=== PATIENT | female | born 1995 | race African-American/Black ===

== ENCOUNTER 2024-03-02 11:07 | Emergency (ER) | payer OTHER, SELFPAY ==
[2024-03-02] VITALS (12 sets, daily range): BP systolic 83–101; BP diastolic 54–75; PULSE 42–105; RESP 12–100; TEMP 36.7–36.8; O2SAT 96–100
--- NOTE | 2024-03-02 11:17 | ECG_ITS ---
Test Date: 2024-03-02 11:46:58 Measurements Intervals [place] Rate: 47 P: 30 VA: 205 QRS: 64 QRSD: 84 T: 36 QT: 419 QTc: 372 Interpretive Statements SINUS BRADYCARDIA WITH SINUS ARRHYTHMIA BORDERLINE AV CONDUCTION DELAY CONSIDER ANTERIOR INFARCT, AGE INDETERMINATE ABNORMAL ECG No previous ECG available for comparison Electronically Signed On 03-02-2024 11:49:07 NURSE ORTHOPEDIC by Geoff Padilla D.O.
--- NOTE | 2024-03-02 11:44 | PC.NURSE ---
Spoke with [facility] control , Edwin - pharmacist - states subtoxic amount of Tylenol taken. Need to draw a 4 hour acetaminophen level around 1430.
[2024-03-02 11:48] LABS: Basophils Percent Auto 0.8 % (0.2-1.2); Eosinophils Percent Auto 0.4 % (0-4.4); Hematocrit 39.3 % (37.0-47.0); Hemoglobin 12.2 g/dL (12.0-15.0); Immature Granulocyte Absolute 0.01 K/mm3 (0.00-0.031); Immature Granulocyte Percent A 0.2 % (0-0.5); Lymphocytes Absolute Auto 1.97 K/mm3 (0.9-3.2); Lymphocytes Percent Auto 38.5 % (18.3-44.2); Mean Corpuscular Hemoglobin 25.8 pg (26-34); Mean Corpuscular Volume 83.1 fl (80-100); Mean Platelet Volume 9.9 fl (7.4-10.4); Monocytes Absolute Auto 0.7 K/mm3 (0.1-0.6); Monocytes Percent Auto 13.5 % (2.6-8.5); Neutrophils Absolute Auto 2.4 K/mm3 (1.3-6.7); Neutrophils Percent Auto 46.6 % (45.5-73.1); Platelet Count Result 392 k/mm3 (150-375); Red Blood Count 4.73 M/mm3 (4.2-5.4); Red Cell Distribution Width 13.8 % (11.5-14.5); White Blood Count 5.1 K/mm3 (4.5-10.0)
[2024-03-02 11:50] LABS: Add Urine Microscopic? NO; Appearance Urine Clear (Clear); Bilirubin Urine Negative (Negative); Blood Urine Negative (Negative); Color Urine Yellow (Yellow); Glucose Urine UA Negative (Negative); Ketones Urine Negative (Negative); Leukocyte Esterase Ur Negative LEU/UL (Negative); Nitrate Urine Negative (Negative); Protein Urine Negative (Negative); pH Urine 6.5 (5.0-9.0)
[2024-03-02 12:02] LABS: Pregnancy On Board Control Positive; Urine Pregnancy Test Negative
[2024-03-02 12:11] LABS: Acetaminophen 108 ug/mL (10-30); Alanine Aminotransferase 13 U/L (6-35); Albumin Level 4.1 g/dL (3.5-5.1); Alkaline Phosphatase 47 U/L (38-126); Anion Gap 6 mmol/L (4-12); Aspartate Amino Transferase 26 U/L (14-36); Bilirubin,Total 0.3 mg/dL (0.2-1.3); Blood Urea Nitrogen 10 mg/dL (7-17); Calcium 8.9 mg/dL (8.4-10.2); Carbon Dioxide 27 mmol/L (22-30); Chloride 107 mmol/L (98-107); Estimated CRCL calculation 108 ml/min; Estimated Glomerular Filt Rate > 60; Ethanol < 10 mg/dL (<10); Glucose 79 mg/dL (65-110); Potassium 4.3 mmol/L (3.4-5.0); Salicylate < 1.0 mg/dL (2-20); Sodium 140 mmol/L (137-145)
[2024-03-02 12:12] LABS: Barbiturate Screen Urine Negative (Negative); Benzodiazepines Screen Urine Negative (Negative)
--- NOTE | 2024-03-02 12:16 | PC.NURSE ---
Poison control called by Magdalene Nassar RN. Screen Printing Supervisor stated to RN to keep monitoring patient and to check acetaminophen levels again at 1430
[2024-03-02 12:21] LABS: Cannabinoid Screen Urine Positive (Negative); Cocaine Screen Urine Negative (Negative); Methadone Screen Urine Negative (Negative); Opiate Screen Urine Negative (Negative); Phencyclidine Screen Urine Negative (Negative)
[2024-03-02 12:24] LABS: Amphetamine Screen Urine Positive (Negative); SARS-CoV-2 RNA PCR Negative (Negative)
--- NOTE | 2024-03-02 12:26 | ED.GENADULT ---
HPI - General Adult General Chief complaint: Overdose Stated complaint: OD Time Seen by Provider: 03/02/24 11:52 History of Present Illness HPI narrative: 28-year-old female presenting to the emergency department for evaluation after an intentional ingestion of Tylenol. Patient reports due to increased stress and anxiety she felt overwhelmed and she took Tylenol. Patient did not expressly say that she did this to hurt herself but she did states she did not take it for pain control. Patient states that she wishes instead of taking these medications that she wished she had just watched a movie and let the intense emotion past. States she is no longer suicidal and no longer wants to hurt herself. Review of Systems Review of Systems: All systems reviewed & are unremarkable except as noted in HPI and below PMFSH Social History Social History Substance use type: marijuana Exam Narrative: APPEARANCE: Well appearing, no pain, no distress, well-nourished. HEAD: normocephalic, atraumatic. EYES: PERRLA/EOMI, conjunctivae clear. NOSE: Normal no drainage EARS:TMS clear with good light reflex. THROAT: Pharynx clear, no exudate. NECK: Supple. No adenopathy, no masses. RESPIRATORY: Airway patent, respirations nonlabored. Clear to auscultation bilaterally, no rales, rhonchi, wheezing. CARDIOVASCULAR: Regular rate and rhythm without murmurs rubs or gallops. ABDOMINAL: Soft, nontender, nondistended, normal bowel sounds MUSCULOSKELETAL: Moves all extremities. Strength/ROM intact, No edema, No calf tenderness. NEURO: Alert. Cranial nerves II through XII intact. Grossly intact SKIN: Warm, dry. Normal Color Course Vital Signs Vital signs: Vital Signs Temperature 98.0 F 03/02/24 11:05 Pulse Rate 82 03/02/24 11:05 Respiratory Rate 14 03/02/24 11:05 Blood Pressure 94/61 L 03/02/24 11:05 Pulse Oximetry 100 03/02/24 11:05 Oxygen Delivery Room Air 03/02/24 11:05 Temperature 98.3 F 03/02/24 18:43 Pulse Rate 67 03/02/24 18:43 Respiratory Rate 18 03/02/24 18:43 Blood Pressure 97/61 L 03/02/24 18:43 Pulse Oximetry 100 03/02/24 18:43 Oxygen Delivery Room Air 03/02/24 11:17 Medical Decision Making MDM Narrative Medical decision making narrative: 28-year-old female presenting to the emergency department for evaluation after an intentional ingestion Tylenol. Patient is afebrile with no leukocytosis and hemoglobin of 12.2. Patient has no significant abnormalities on her CMP UA was negative for infection. The patient's initial CT been level was elevated with the 4 hours decreased to 63. Patient was positive for cannabinoids and amphetamine, patient was negative for COVID, EKG sinus bradycardia. Patient is medically cleared to be evaluated by the crisis counselors. Patient is medically cleared for transport inpatient psychiatric hospitalization as needed. Patient was about but crisis counselor they were comfortable the patient is signing a safety agreement being discharged home. Patient was comfortable the plan for discharge. All questions concerns were addressed. Differential Diagnosis Differential Diagnosis: Tylenol overdose, intentional overdose, depression, anxiety, S Vital Signs Vital Signs: Vital Signs Temperature 98.0 F 03/02/24 11:05 Pulse Rate 82 03/02/24 11:05 Respiratory Rate 14 03/02/24 11:05 Blood Pressure 94/61 L 03/02/24 11:05 Pulse Oximetry 100 03/02/24 11:05 Oxygen Delivery Room Air 03/02/24 11:05 Temperature 98.3 F 03/02/24 18:43 Pulse Rate 67 03/02/24 18:43 Respiratory Rate 18 03/02/24 18:43 Blood Pressure 97/61 L 03/02/24 18:43 Pulse Oximetry 100 03/02/24 18:43 Oxygen Delivery Room Air 03/02/24 11:17 Lab Data Lab results reviewed: Yes I reviewed the patient's lab results. 03/02/24 11:36 03/02/24 11:36 Labs: Lab Results 03/02/24 03/02/24 Range/Units 11:36 15:16 WBC 5.1 (4.5-10.0) K/mm3 RBC 4.73 (4.2-5.4) M/mm3 Hgb 12.2 (12.0-15.0) g/dL Hct 39.3 (37.0-47.0) % MCV 83.1 (80-100) fl MCH 25.8 L (26-34) pg MCHC 31.0 L (32-36) g/dl RDW 13.8 (11.5-14.5) % Plt Count 392 H (150-375) k/mm3 MPV 9.9 (7.4-10.4) fl Immature Gran % (Auto) 0.2 (0-0.5) % Neut % (Auto) 46.6 (45.5-73.1) % Lymph % (Auto) 38.5 (18.3-44.2) % [place] % (Auto) 13.5 H (2.6-8.5) % Eos % (Auto) 0.4 (0-4.4) % Baso % (Auto) 0.8 (0.2-1.2) % Lymph # (Auto) 1.97 (0.9-3.2) K/mm3 [place] # (Auto) 0.7 H (0.1-0.6) K/mm3 Eos # (Auto) 0.0 (0-0.3) K/mm3 Baso # (Auto) 0.0 (0.0-0.1) K/mm3 Abs Immat Gran (auto) 0.01 (0.00-0.031) K/mm3 Absolute Neuts (auto) 2.4 (1.3-6.7) K/mm3 Absolute Nucleated RBC 0.000 (0.0-0.012) K/mm3 Nucleated RBC % 0.0 (0.0-0.2) % Sodium 140 (137-145) mmol/L Potassium 4.3 (3.4-5.0) mmol/L Chloride 107 (98-107) mmol/L Carbon Dioxide 27 (22-30) mmol/L Anion Gap 6 (4-12) mmol/L BUN 10 (7-17) mg/dL Creatinine 0.60 L (0.7-1.0) mg/dL Estim Creat Clear Calc 108 ml/min Estimated GFR > 60 (59 - ) Glucose 79 (65-110) mg/dL Calcium 8.9 (8.4-10.2) mg/dL Total Bilirubin 0.3 (0.2-1.3) mg/dL AST 26 (14-36) U/L ALT 13 (6-35) U/L Alkaline Phosphatase 47 (38-126) U/L Total Protein 7.0 (6.3-8.2) g/dL Albumin 4.1 (3.5-5.1) g/dL TSH 0.335 L (0.465-4.680) uIU/mL Urine Color Yellow (Yellow) Urine Appearance Clear (Clear) Urine pH 6.5 (5.0-9.0) Ur Specific [place] 1.020 (1.001-1.035) Urine Protein Negative (Negative) mg/dL Urine Glucose (UA) Negative (Negative) mg/dL Urine Ketones Negative (Negative) mg/dL Ur Blood (Man) Negative (Negative) Urine Nitrate Negative (Negative) Urine Bilirubin Negative (Negative) Urine Urobilinogen 1.0 (<2.0) mg/dL Leukocyte Esterase Rfl Negative (Negative) [place]/UL Urine Test Negative Salicylates < 1.0 L (2-20) mg/dL Urine Opiates Screen Negative (Negative) Urine Methadone Screen Negative (Negative) Acetaminophen 108 H 63 H (10-30) ug/mL Ur Barbiturates Screen Negative (Negative) Ur Phencyclidine Scrn Negative (Negative) Ur Amphetamine Screen Positive A (Negative) U Benzodiazepines Scrn Negative (Negative) Urine Cocaine Screen Negative (Negative) U Cannabinoids Screen Positive A (Negative) Ethyl Alcohol < 10 (<10) mg/dL SARS-CoV-2 RNA (RT-PCR) Negative (Negative) Discharge Plan Discharge Clinical Impression: Acetaminophen overdose Patient Disposition: Home, Self-Care Condition: Stable Instructions: Antibiotic Form, Depression (ED), Adult Overdose (ED) Additional Instructions: Have close follow-up with outpatient psychiatry and counseling. Have close follow-up with your primary care physician. If you do not feel safe at home please call or return to the emergency department. Follow-up/Referrals: UNKNOWN,DOCTOR [Primary Care Provider] -
[2024-03-02 12:40] LABS: Thyroid Stimulating Hormone 0.335 uIU/mL (0.465-4.680)
--- NOTE | 2024-03-02 14:02 | PC.NURSE ---
Received call from poison control at this time. Lab results given to jarvis from poison control. Jarvis states he will call back around 1500 to obtain new acetaminophen level and provide instructions if needed.
[2024-03-02 15:37] LABS: Acetaminophen 63 ug/mL (10-30)
--- NOTE | 2024-03-02 16:16 | PC.NURSE ---
Recieved call from poison control at 1616. Spoke with KAMERON Noriega. RN given Acetaminophen level by this nurse. KAMERON Noriega states patient does not need any other medical treatment. This RN acknowledged communication from poison control.
--- NOTE | 2024-03-02 18:28 | PC.NURSE ---
[facility] States at this time they agreed with patient for a safety plan and to follow up with them outpatient.
== END 2024-03-02 19:03 | disposition home or self-care (01) ==
PROVIDERS: Emergency Medicine; Emergency Provider Emergency Medicine
DX: T39.1X2A Poisoning by 4-Aminophenol derivatives, intentional self-harm, initial encounter (principal); Z20.822 Contact with and (suspected) exposure to COVID-19
CPT/HCPCS: 36415; 80053; 80143; 80179; 80307; 81003; 81025; 82077; 84443; 85025; 87635; 93005; 99284

== ENCOUNTER 2024-03-28 05:11 | Emergency (ER) | payer OTHER, SELFPAY ==
[2024-03-28 05:17] VITALS: BP 144/97; PULSE 77; RESP 18; TEMP 36.6; O2SAT 100
[2024-03-28 05:44] LABS: Basophils Percent Auto 0.1 % (0.2-1.2); Eosinophils Absolute Auto 0.1 K/mm3 (0-0.3); Eosinophils Percent Auto 0.6 % (0-4.4); Hematocrit 38.9 % (37.0-47.0); Hemoglobin 12.3 g/dL (12.0-15.0); Immature Granulocyte Absolute 0.03 K/mm3 (0.00-0.031); Immature Granulocyte Percent A 0.3 % (0-0.5); Lymphocytes Absolute Auto 0.44 K/mm3 (0.9-3.2); Lymphocytes Percent Auto 4.3 % (18.3-44.2); Mean Corpuscular HGB Conc 31.6 g/dl (32-36); Mean Corpuscular Hemoglobin 26.3 pg (26-34); Mean Corpuscular Volume 83.1 fl (80-100); Monocytes Absolute Auto 0.5 K/mm3 (0.1-0.6); Monocytes Percent Auto 5.3 % (2.6-8.5); Neutrophils Absolute Auto 9.2 K/mm3 (1.3-6.7); Neutrophils Percent Auto 89.4 % (45.5-73.1); Platelet Count Result 351 k/mm3 (150-375); Red Blood Count 4.68 M/mm3 (4.2-5.4); Red Cell Distribution Width 15.5 % (11.5-14.5); White Blood Count 10.3 K/mm3 (4.5-10.0)
--- NOTE | 2024-03-28 05:47 | ED.NAVMDI ---
HPI - Nausea/Vomiting/Diarrhea General Chief complaint: Nausea/Vomiting/Diarrhea Stated complaint: n/v after drinking celcius Time Seen by Provider: 03/28/24 05:20 History of Present Illness HPI Narrative: 28-year-old otherwise healthy female presenting to the emergency room with chief complaint nausea and vomiting. She states she drank and NG drink that was left in her car for several days and then also had some ?bad food ?. She states that she has had several episodes nausea vomiting today. Denies any diarrhea, fever, back pain, abdominal pain, chills. She was otherwise in her normal state of health. Denies any recent injuries or illnesses. No sick contacts or exposures. No one around her with similar symptoms. Denies any chance of . Denies any urinary complaints. Related Data Allergies Allergy/AdvReac Type Severity Reaction Status Date / Time No Known Allergies Allergy Verified 03/28/24 05:11 Review of Systems Review of Systems: As reviewed above in HPI [facility] Social History Social History Substance use type: marijuana Exam Narrative: GENERAL: [Well-appearing, well-nourished, and in no acute distress.] HEAD: [Normocephalic, atraumatic.] EYES: [PERRLA and EOMI.] ENT: Nares clear, no rhinorrhea or epistaxis. Mucous membranes moist. NECK: Supple. CHEST: [Clear to auscultation. No respiratory distress.] HEART: [Regular rate and rhythm]. No murmur heard. [Normal peripheral pulses.] ABDOMEN: [Soft, nondistended], [nontender], [No rigidity or guarding] EXTREMITIES: Normal range of motion. [No edema.] SKIN: Warm, dry, no rash. NEURO: [No focal deficits]. Alert and oriented [x3.] PSYCH: [Normal mood and affect.] Course Vital Signs Vital signs: Vital Signs Temperature 36.6 C 03/28/24 05:17 Pulse Rate 77 03/28/24 05:17 Respiratory Rate 18 03/28/24 05:17 Blood Pressure 144/97 H 03/28/24 05:17 Pulse Oximetry 100 03/28/24 05:17 Oxygen Delivery Room Air 03/28/24 05:17 Temperature 36.6 C 03/28/24 05:17 Pulse Rate 77 03/28/24 05:17 Respiratory Rate 18 03/28/24 05:17 Blood Pressure 144/97 H 03/28/24 05:17 Pulse Oximetry 100 03/28/24 05:17 Oxygen Delivery Room Air 03/28/24 05:17 MDM - Nausea/Vomiting/Diarrhea MDM Narrative Medical decision making narrative: 28-year-old otherwise healthy appearing female presenting to the emergency room with nausea vomiting for several hours. She states she drank and open energy drink in her car that was left there for several days and then had ?bad food. Patient otherwise appears well not any acute distress, does have an emesis basin from no contents. She has a soft nontender nondistended abdomen. Otherwise looks well not any acute distress. No retching. Normal vital signs with any significant blood pressure concerns, tachycardia, fever, hypoxia. Suspicion is low for any acute emergent condition and she otherwise appears well. Suspicion presently for gastroenteritis or food poisoning from her ingestions recently. No abdominal pain or tenderness or distention. No suspicion for intra-abdominal process at this time. I offered the patient treatment regimen including IV fluids, Zofran, Bentyl and to obtain a basic laboratories to screen for any kind of acute process such as electrolyte derangements or leukocytosis which could point towards infection. Patient declined this and wanted to try p.o. medications and go home. She was given p.o. Bentyl and p.o. Zofran and re-evaluated. After reconsideration patient did want to get IV fluids and labs drawn. These were drawn and largely unremarkable without any acute findings. Patient felt significantly improved after fluids and Zofran and was stable for discharge home at this time. Medical Records Attestation: I reviewed the patient's medical records. Lab Data Attestation: I reviewed the patient's lab results. 03/28/24 05:36 03/28/24 05:36 Labs: Lab Results 03/28/24 Range/Units 05:36 WBC 10.3 H (4.5-10.0) K/mm3 RBC 4.68 (4.2-5.4) M/mm3 Hgb 12.3 (12.0-15.0) g/dL Hct 38.9 (37.0-47.0) % MCV 83.1 (80-100) fl MCH 26.3 (26-34) pg MCHC 31.6 L (32-36) g/dl RDW 15.5 H (11.5-14.5) % Plt Count 351 (150-375) k/mm3 MPV 10.0 (7.4-10.4) fl Immature Gran % (Auto) 0.3 (0-0.5) % Neut % (Auto) 89.4 H (45.5-73.1) % Lymph % (Auto) 4.3 L (18.3-44.2) % [place] % (Auto) 5.3 (2.6-8.5) % Eos % (Auto) 0.6 (0-4.4) % Baso % (Auto) 0.1 L (0.2-1.2) % Lymph # (Auto) 0.44 L (0.9-3.2) K/mm3 [place] # (Auto) 0.5 (0.1-0.6) K/mm3 Eos # (Auto) 0.1 (0-0.3) K/mm3 Baso # (Auto) 0.0 (0.0-0.1) K/mm3 Abs Immat Gran (auto) 0.03 (0.00-0.031) K/mm3 Absolute Neuts (auto) 9.2 H (1.3-6.7) K/mm3 Absolute Nucleated RBC 0.000 (0.0-0.012) K/mm3 Nucleated RBC % 0.0 (0.0-0.2) % Sodium 137 (137-145) mmol/L Potassium 3.9 (3.4-5.0) mmol/L Chloride 106 (98-107) mmol/L Carbon Dioxide 25 (22-30) mmol/L Anion Gap 6 (4-12) mmol/L BUN 11 (7-17) mg/dL Creatinine 0.60 L (0.7-1.0) mg/dL Estim Creat Clear Calc Not Reportable Estimated GFR > 60 (59 - ) Glucose 120 H (65-110) mg/dL Calcium 9.2 (8.4-10.2) mg/dL Magnesium 1.7 (1.6-2.3) mg/dL Discharge Plan Discharge Clinical Impression: Nausea & vomiting, Food poisoning Patient Disposition: Home, Self-Care Condition: Stable Instructions: Antibiotic Form, Acute Nausea and Vomiting (ED) Additional Instructions: Your labs look reassuring and you have improved with fluids and Zofran. We will send you home with some symptom controlling medications. Return with any new or worsening concerns at any time. Patient Language: Maori Prescriptions: New dicyclomine 20 mg tablet 20 mg PO TID PRN (Reason: abdominal pain) Qty: 14 0RF ondansetron 4 mg tablet,disintegrating 4 mg PO Q8H PRN (Reason: nausea and vomiting) Qty: 10 0RF Follow-up/Referrals: PHYSICIAN,MANUFACTURING ENGINEER CHIEF [Primary Care Provider] - Time of Disposition: 06:24
[2024-03-28] MEDS: LACTATED RINGERS 1,000 ML 999 ML IV CONT (05:52)
[2024-03-28] MEDS: ONDANSETRON INJ 4 MG/2 ML VIAL IV PUSH (05:52)
[2024-03-28] MEDS: DICYCLOMINE HCL 10 MG CAPSULE 20 MG PO (05:56)
[2024-03-28 05:58] LABS: Anion Gap 6 mmol/L (4-12); Blood Urea Nitrogen 11 mg/dL (7-17); Calcium 9.2 mg/dL (8.4-10.2); Carbon Dioxide 25 mmol/L (22-30); Chloride 106 mmol/L (98-107); Estimated Glomerular Filt Rate > 60; Glucose 120 mg/dL (65-110); Magnesium 1.7 mg/dL (1.6-2.3); Potassium 3.9 mmol/L (3.4-5.0); Sodium 137 mmol/L (137-145)
[2024-03-28 06:53] VITALS: BP 133/84; PULSE 67; RESP 18; O2SAT 98
--- OUTSIDE RECORDS SUMMARY | 2024-04-02 11:51 | XMS_ITS | Clinical Summary ---
Author Organization [facility] Address [address] [place] [address] Care Team Providers Care Occupational Health And Safety Manager Name Role Phone Yeimy Hoskins MD Primary Care Provider Unavail able Source Comments [facility], [facility],non-owned Affiliates and Associated Physician Practices is amultiple site organization consisting of ambulatory clinics and hospital sitesin [place], [place] and [place]. This disclosure is being madepursuant to the Care Everywhere program and may not contain all information available regarding this patient. Last updated 18.[facility] Allergies No known active allergies Social History Tobacco Use Types Packs/Day Years Used Date Smoking Tobacco: Never Assessed Sex and Gender Information Value Date Recorded Sex Assigned at Not on file Gender Identity Not on file Sexual Orientation Not on file Last Filed Vital Signs Vital Sign Reading Time Taken Comments Blood Pressure 117/63 08/19/2013 2:32 PM CDT Pulse 76 08/19/2013 2:32 PM CDT Temperature 36.7 ??C (98.1 ??F) 08/19/2013 2:32 PM CD T Respiratory Rate 16 08/19/2013 2:32 PM CDT Oxygen Saturation 100% 08/19/2013 2:32 PM CDT Inhaled Oxygen Concentration - - Weight 81.6 kg (180 lb) 08/19/2013 2:29 PM CDT Height 162.6 cm (5' 4 ) 08/19/2013 2:29 PM CDT Body Mass Index 30.9 08/19/2013 2:29 PM CDT Plan of Treatment Health Maintenance Due Date Last Done Comments PAP SMEAR 1996 HIV SCREENING 07/09/2011 HEPATITIS C SCREENING 07/04/2014 DTAP/TDAP/TD VACCINES (1 - Tdap) 07/09/2015 HEPATITIS B VACCINE (1 of 3 - 19+ 3-dose series) 07/09/2015 DEPRESSION SCREENING 04/13/2023 COVID-19 VACCINE (1 - 2023-2 5 season) 2023 INFLUENZA VACCINE (#1) 2023 ZOSTER VACCINE (1 of 2) 2046 HIB VACCINE Aged Out No longer eligi ble based on patient's age to complete this topic HPV VACCINE Aged Out No longer eligi ble based on patient's age to complete this topic MENINGOCOCCAL VACCINE Aged Out No ena kristyn eligible based on patient's age to complete this topic PNEUMOCOCCAL VACCINE Aged Out No long er eligible based on patient's age to complete this topic Care Teams Occupational Health And Safety Manager Relationship Specialty Start Date End Date Yeimy Hoskins MD PCP - General 11/25/17
--- OUTSIDE RECORDS SUMMARY | 2024-04-02 11:51 | XMS_ITS | Referral Summary ---
Author Organization [facility] Address [address] [place] [address] Care Team Providers Care Human Resources Generalist Name Role Phone Yeimy Hoskins MD Primary Care Provider Unavail able Source Comments [facility],non-owned Affiliates and Associated Physician Practices is amultiple site organization consisting of ambulatory clinics and hospital sitesin [place], [place], [place] and [place]. This disclosure is being madepursuant to the Care Everywhere program and may not contain all information available regarding this patient. Last updated 18.[facility] Allergies No known active allergies Social [...] 08/19/2013 2:29 PM CDT Plan of Treatment Not on file Care Teams Human Resources Generalist Relationship Specialty Start Date End Date Yeimy Hoskins MD PCP - General 11/25/17
--- OUTSIDE RECORDS SUMMARY | 2024-04-02 11:52 | XMS_ITS | Encounter Summary ---
Author Organization [facility] Healthcare Address [address] [place] [address] Care Team Providers Care Screw Machine Tool Setter Name Role Phone No, Physician Primary Care Provider [phone] Reason for Visit * Auth/Cert (Routine) Specialty Diagnoses / Procedures Referred By Contac t Referred To Contact Diagnoses Encounter for induction of labor Procedures N/A Referral ID Status Reason Start Date Expiration Date Visits Re quested Visits Authorized [id number] 1 1 Encounter Details Date Type Department Care Team (Late st Contact Info) Description 05/22/2023 11:15 PM CHEMIST FOOD Anesthesia Event [facility] [address] [place] [address] Luma Ramirez MD [address] [place] [address] Noni Vega MD [address] [place] [address] Anesthesia Record Procedure Summary Procedure Name Responsible Anesthesiologist Anesthesia Start Time Anesthesia Stop Time Labor Analgesia Luma Ramirez MD 05/22/23 2315 0 05/23/23 1139 Events Date Time Event Comment 05/22/2023 2315 An Start 2315 Face Time 2316 Time out - Regional 2318 An Block Induction The patie nt was reevaluated immediately before moderate or deep sedation and before anesthesia induction. 2322 Epidural Placed 05/23/2023 0018 Quick Note Called for unco ntrolled pain. Level at L1 bilaterally. Bolused 10 cc 0.125% bupivacaine 1139 An Stop Meds Name Total epinePHRINE 1:200,000-lidocaine 1.5 % 3 mL fentaNYL-BUPivacaine preserv ative free in 0.9% sodium chloride 2 mcg/mL- 0.1 % cassette (premix) 131.67 mL BUPivacaine (MARCAINE) 10 mL in sodium c hloride 0.9% 20 mL epidural 10 mL * Agents No agents on file. * Blood No blood administrations on file. Lines, Drains, and Airways Type Details Placement Removal Peripheral IV Placement Date: 05/22/23; Placement Time: 2158; Catheter Size: 20 G; Orientation: Posterior, Right; Location: Hand; Removal Date: 05/24/23; Removal Time: 0800 05/22/232158 by Zainab Garcia RN 05/24/23799 by Yeimy Leon RN Epidural Placement Date: 05/22/23; Placement Time: 2319 (created via procedure documentation); 05/23/23; 13105/22/232319 by Luma Ramirez MD 05/23/23 131 by Omayra Guo RN Urethral Catheter Placement Date: 05/23/23; Placement Time: 5; Balloon Size: 10 mL; Urine Returned: Yes; Removal Date: 05/23/23; Removal Time: 1122; Removal Reason: Per protocol 05/23/23 0006 by Zainab Garcia RN 05/23/23 112 by Omayra Guo RN documented in this encounter Social History Tobacco Use Types Packs/Day Years Used Date Smoking Tobacco: Former Vaping Smokeless Tobacco: Current Comments:pt vapes Alcohol Use Standard Drinks/Week Comments No 0 (1 standard drink = 0.6 oz pur e alcohol) [facility] Utilities Answer Date Recorded In the past 12 months has [employer], gas, oil, or water [email or web address] threatened to shut off services in your home? No 05/24/2023 Social Connection and Isolat ion Panel [NHANES] Answer Date Recorded In a typical week, how many times do you talk on the phone with family, friends, or neighbors? More than three times a week 05/24/2023 How often do you get togethe r with friends or relatives? More than three times a week 05/24/2023 How often do you attend chur or christian services? More than 4 times per year 05/24/2023 Do you belong to any clubs o r organizations such as hindu groups, unions, fraternal or athletic groups, or school groups? No 05/24/2023 How often do you attend meet ings of the clubs or organizations you belong to? Never 05/24/2023 Are you , , di vorced, , never , or living with a partner? Living with partner 05/24/2023 AUDIT-C Answer Date Recorded Q1: How often do you have a drink containing alc ohol? Never 08/20/2020 Average Number of Drinks Not on file 021 Frequency of Binge Drinking Not on file 08/11 Overall Financial Resource Strain (CARDIA) Answe r Date Recorded How hard is it for you to pa y for the very basics like food, housing, medical care, and heating? Not very hard 05/24/2023 PHQ-2 Answer Date Recorded PHQ-2 Total Score (If total score is 3 or more points, staff should administer the PHQ-9) 0 05/22/2023 [facility] - Occupational Stress Questionnaire Answer Date Recorded Do you feel stress - tense, restless, nervous, or anxious, or unable to sleep at night because your mind is troubled all the time - these days? Patient declined 05/22/2023 Exercise Vital Sign Answer Date Recorde d On average, how many days pe r week do you engage in moderate to strenuous exercise (like a brisk walk)? Patient declined On average, how many minutes do you engage in exercise at this level? Patient declined 05/22/2023 Hunger Vital Sign Answer Date Recorded Within the past 12 months, y ou worried that your food would run out before you got the money to buy more. Never true 05/24/19 24 Within the past 12 months, t he food you bought just didn't last and you didn't have money to get more. Never true 05/24/2023 PRAPARE - Transportation Answer Date Re corded In the past 12 months, has l ack of transportation kept you from medical appointments or from getting medications? No 05/14 In the past 12 months, has l ack of transportation kept you from meetings, work, or from getting things needed for daily living? No 05/24/2023 Housing Stability Vital Sign Answer Hector e Recorded In the last 12 months, was t here a time when you were not able to pay the mortgage or rent on time? No 05/24/2023 In the last 12 months, how many places have you lived? 1 05/24/2023 In the last 12 months, was t here a time when you did not have a steady place to sleep or slept in a group home (including now)? No 05/24/2023 [place] Depression Scale Answer Date Recorded [place] Depression Scale Total 1 02/24/2023 The thought of harming myself has occurred to me . Never 02/24/2023 Personal Safety Answer Date Recorded Have you ever been in or are you currently in a harmful physical or emotional relationship or is someone making you feel afraid or unsafe? Denies 05/22/2023 Comments Yes Sex and Gender Information Value Date Recorded Sex Assigned at Not on file Legal Sex Female 8:40 PM CHEMIST FOOD Gender Identity Female 12/02/2022 6:55 PM CDT Sexual Orientation Straight 12/02/2022 6: 55 PM CDT documented as of this encounter OR Notes * Anesthesia Postprocedure Evaluation - Fanta Wheeler MD - 05/24/2023 8:06 AM CST Patient: Brenda Shi Procedure Summary Date: 05/22/23 Room / Location: Anesthesia Start: 2314 Anesthesia Stop: Procedure: Labor Analgesia Diagnosis: Scheduled Providers: Responsible Provider: Elian Glez MD Anesthesia Type: epidural ASA Status: 2 Anesthesia Type: epidural Last vitals BP 101/54 Pulse 52 Temp 37.1 ??C (98.8 ??F) (Oral) Resp 16 SpO2 97% Anesthesia Post Evaluation Patient location during evaluation: floor Patient participation: complete - patient participated Level of consciousness: fully awake and follows simple commands Pain score: 0 Pain management: adequate Airway patency: adequate Cardiovascular status: acceptable Respiratory status: room air Hydration status: acceptable Pt is: normothermic Nausea/Vomiting status: none Comments: Patient denies headache, fevers, chills, rigors, nausea/vomiting, tingling/weakness/numbness, excessive pain/edema/drainage/erythema at needle puncture site. Patient taking PO, ambulating, urinating without Mendoza catheter. Puncture site examined - no appreciable induration, erythema, swelling, drainage. Patient counseled on signs/symptoms of epidural abscess/hematoma and post dural puncture headache. Patient advised to seek immediate medical attention should she appreciate any of these. Patient voices understanding. No notable events documented. Cosigned by Luma Ramirez MD at 05/24/2023 10:38 AM CHEMIST FOOD IST FOOD IST FOOD * Anesthesia Preprocedure Evaluation - Noni Vega MD - 05/22/2023 11:41 PM CST Images from the original note were not included. Anesthesia Evaluation Brenda Shi is a 27 y.o. female * No procedures listed * * No Diagnosis Codes entered * HISTORY HPI 27 y.o. female at 39w0d gestation presenting for TOLAC. Patient with prior under epidural. d/t nonreassuring status. Last c/b preeclampsia with NSTEMI 10/03/20 with peak trop of 762. At that time,echo showed basal inferior wall hypokinesis and septal flattening, est PASP ~ 40 mmHg, and diastolic dysfunction. Underwent cath due to concern for SCAD, which showed angiographically normal coronaryarteries. Discharged on latha inhibitor. Subsequent TTE (03/25/23) was reassuring - normal LV/RV systolic function (EF 54-74%), mild MR. Past Medical History Information obtained from: patient and chart. Neurological Pertinent negatives: CVA/stroke Cardiovascular + CT (NSTEMI in s/o preeclampsia) + Current valvular disease - MR - mild; Pertinent negatives: hypertension ; CAD ; systolic/diastolic dysfunction w/o CHF ; atrial fibrillation; negative for CHF and drug-eluting stent(s) Respiratory Pertinent negatives: asthma Hepatic / Heme + History of anemia - iron deficiency Pertinent negatives: liver disease Renal / Pertinent negatives: renal disease Endocrine / Other + Obesity (BMI >30) + Infectious disease - UTI. Pertinent negatives: diabetes mellitus Functional Capacity Functional capacity: 4-6 METs Day of Surgery assessments + Possibility of assessed - known to be . PAT Summary and Plans Anesthesia plan discussed: spinal / epidural anesthesia. Additional comments: Discussed procedure and risks/benefits of labor epidural. Discussed risks of infection, bleeding, PDPH. Patient voices understanding and agrees with plan. All questions and concerns addressed. . Patient Active Problem List Diagnosis Date Noted Encounter for induction of labor 05/22/2023 History of delivery 03/27/2023 HROB: Maternal anemia in , antepartum, first trimester 12/05/2022 HROB: History of non-ST elevation myocardial infarction (NSTEMI) 12/03/2022 Marijuana use during 12/03/2022 HROB: Hx of preeclampsia, prior , currently 12/02/2022 HROB: Maternal varicella, non-immune 07/26/2020 HROB: Tobacco use 04/09/2020 Depression 04/09/2020 HROB: Family Hx Congenital Heart Disease 04/04/2020 HROB: Encounter for supervision of normal in first trimester 03/23/2020 Past Medical History: Diagnosis Date Depression History of pre-eclampsia Urinary tract infection Past Surgical History: Procedure Laterality Date SECTION, LOW TRANSVERSE EAR SURGERY OB History 2 Para 1 Term 1 AB Living 1 SAB IAB Ectopic Multiple 0 Live Births 1 No Known Allergies Taking? Last Dose Start Date End Date Provider aspirin 81 mg chewable tablet -- 03/18/23 03/17/24 Giuliana Crisostomo MD Take 1 tablet (81 mg total) by mouth daily azelaic acid 15 % gel -- 08/01/20 -- ProviderBreezy MD PNV with [id number] ( Vitamin Plus Low Iron) 27 mg iron- 1 mg tablet -- 03/18/23 03/17/24 Giuliana Crisostomo MD Take 1 tablet by mouth daily Notes: Please provide any vitamin with iron and DHA covered by patient's insurance Current Facility-Administered Medications: [START ON 05/23/2023] aspirin chewable tablet 81 mg, 81 mg, oral, Daily carboprost (HEMABATE) injection 250 mcg, 250 mcg, intramuscular, Once PRN Carrier Fluids for Secondary Infusion - 0.9% Sodium Chloride, 30 mL, intravenous, PRN Carrier Fluids for Secondary Infusion - 0.9% Sodium Chloride, 30 mL, intravenous, PRN cefOXitin (MEFOXITIN) 1,000 mg/10 mL in sterile water (premix) 1,000 mg, 1,000 mg, intravenous, Once PRN dextrose 5% and Lactated Ringer's infusion, 125 mL/hr, intravenous, Continuous, Last Rate: 125 mL/hr at 05/22/232256, 125 mL/hr at 05/22/232256 fentaNYL-BUPivacaine preservative free in 0.9% sodium chloride 2 mcg/mL- 0.1 % cassette (premix), ,epidural, Continuous, New Syringe/Cartridge at 05/22/232329 Lactated Ringer's (LR) bolus 1,000 mL, 1,000 mL, intravenous, Once PRN Lactated Ringer's (LR) bolus 500 mL, 500 mL, intravenous, TID PRN lidocaine PF (XYLOCAINE) 10 mg/mL (1 %) preservative free injection 100 mg, 10 mL, infiltration, Once PRN loperamide (IMODIUM) capsule 2 mg, 2 mg, oral, Once PRN methylergonovine (METHERGINE) injection 0.2 mg, 0.2 mg, intramuscular, Once PRN miSOPROStoL (CYTOTEC) tablet 800 mcg, 800 mcg, rectal, Once PRN naloxone (NARCAN) 0.4 mg/mL injection 0.04-0.4 mg, 0.04-0.4 mg, intravenous, Once PRN ondansetron ODT (ZOFRAN-ODT) disintegrating tablet 4 mg, 4 mg, oral, Q6H PRN OR ondansetron (ZOFRAN) injection 4 mg, 4 mg, intravenous, Q6H PRN oxytocin (PITOCIN) injection 10 Units, 10 Units, intramuscular, Once PRN oxytocin 30 unit/500 mL (0.06 unit/mL) in sodium chloride 0.9% (premix) solution, 0-20 milliunits/min, intravenous, Titrated AND Rupture of membranes Category 3 (III) heart rate tracing Prolonged or recurrent FHR decelerations Prolonged minimal variability Change in FHR baseline Uterine ta chysystole requiring intervention , , , Continuous [COMPLETED] penicillin G potassium 5 million units/50 mL in sterile water (premix) 5 Million Units,5 Million Units, intravenous, Once, 5 Million Units at 05/22/23 4318 FOLLOWED BY [START ON 05/23/2023] penicillin G potassium 3 million units/50 mL in dextrose (premix) 3 Million Units, 3 Million Units, intravenous, Q4H sodium chloride 0.9% flush 0.5-20 mL, 0.5-20 mL, intra-catheter, Q8H KASIE sodium chloride 0.9% flush 0.5-20 mL, 0.5-20 mL, intra-catheter, PRN sodium chloride 0.9% flush 0.5-20 mL, 0.5-20 mL, intra-catheter, Q8H KASIE sodium chloride 0.9% flush 0.5-20 mL, 0.5-20 mL, intra-catheter, PRN terbutaline (BRETHINE) injection 0.125 mg, 0.125 mg, intravenous, Once PRN OR terbutaline (BRETHINE) injection 0.25 mg, 0.25 mg, subcutaneous, Once PRN tranexamic acid (CYKLOKAPRON) 1,000 mg/100 mL (10 mg/mL) in sodium chloride (premix) 1,000 mg, 1,000 mg, intravenous, Once PRN Facility-Administered Medications Ordered in Other Encounters: lidocaine-EPINEPHrine (XYLOCAINE with EPI) 1.5 %-1:200,000 preservative free injection, , epidural,PRN, 3 mL at 05/22/23 2323 Social History Tobacco Use Smoking Status Former Types: Vaping Smokeless Tobacco Current Tobacco Comments pt vapes Alcohol Use: Not At Risk (08/20/2020) AUDIT-C Frequency of Alcohol Consumption: Never Average Number of Drinks: Not on file Frequency of Binge Drinking: Not on file Substance and Sexual Activity Drug Use Yes Types: Marijuana Comment: not used in a while per pt Family History Problem Relation Age of Onset Other Father Alive and well; Asthma Mother Asthma; Allergies Maternal Grandmother Allergies; Vitals: 05/22/23 2140 BP: 114/66 Pulse: 79 Resp: 18 Temp: 36.7 ??C (98.1 ??F) SpO2: 98% PT: No results found for requested labs within last 30 days. INR: No results found for requested labs within last 30 days. APTT: No results found for requested labs within last 30 days. Hgb A1C: No results found for requested labs within last 30 days. CBC RBC: 05/22/2023: 4.31 M/cumm RDW: No results found for requested labs within last 30 days. MCHC: 05/22/2023: 32.2 g/dL (L) MCH: 05/22/2023: 26.5 pg (L) MCV: 05/22/2023: 82.1 fL Hct: 05/22/2023: 35.4 % (L) Hgb: 05/22/2023: 11.4 g/dL (L) WBC: 05/22/2023: 9.6 K/cumm MPV: 05/22/2023: 11.9 fL Platelets: 05/22/2023: 207 K/cumm RDW CV: 05/22/2023: 14.5 % RDW Sd: 05/22/2023: 42.5 fL BMP Glucose: No results found for requested labs within last 30 days. Calcium: No results found for requested labs within last 30 days. Sodium: No results found for requested labs within last 30 days. Potassium: No results found for requested labs within last 30 days. CO2: No results found for requested labs within last 30 days. Chloride: No results found for requested labs within last 30 days. BUN: No results found for requested labs within last 30 days. Creatinine: No results found for requested labs within last 30 days. DOS Physical Exam Medical history, medications, and allergies reviewed. Airway Exam: Mallampati: II Cervical ROM: FROM TM distance: 3.5 Upper lip bite test class: 2 Cardiovascular Exam: Rate: regular Rhythm: regular EENT Exam: trachea midline Dental Exam: Appears intact Skin Exam: Skin is warm and dry. Current state: Patient's current state is cooperative and interactive. Anesthesia Plan ASA 2 My patient is approved for the Anesthesia Controlled Medication protocol when under care of a CORK CUTTER Planned anesthesia: Epidural Informed Consent: Discussed plan with attending. Anesthesia plan and risks discussed with patient. Consent and Attending signature: I and/or my designee have discussed the anesthesia plan, benefits, possible alternatives, parental presence at time of induction (if indicated), and clinically relevant risks that may include dental injury, unintentional awareness, and/or other complications. The patient and/or parent/legal guardian understand, and agree to proceed. All questions answered. IST FOOD * Anesthesia Procedure Notes - Luma Ramirez MD - 05/22/2023 11:19 PM CHEMIST FOOD Associated Order(s): Epidural Block Epidural Block Patient location: L&D End time: 05/22/2023 11:30 PM Reason for block: labor analgesia Staff: Supervising provider: Luma Ramirez MD Placed by: Resident: Noni Vega MD Procedure prep: Preprocedure checklist: patient identified, procedure contraindications assessed, procedure consentobtained, surgical consent, IV checked, risks, benefits and alternatives discussed, monitors and equipment checked and timeout performed Patient Position: sitting Procedure performed while patient: awake Monitoring: oximetry and blood pressure Prep solution: chlorhexadine/alcohol PPE: provider hat/mask, sterile gloves and sterile drape Skin infiltrated with lidocaine 1%: yes Epidural: Approach: midline Imaging guidance used: no Location: L3-4 Number of attempts:1 Epidural needle: Injection technique: JACKLYN saline Needle type: Tuohy Needle gauge: 17 G Needle length: 9 cm Loss of resistance: 6 cm Catheter: Catheter type: multi-orifice. Catheter at skin depth: 11 cm Negative aspiration of blood: no Negative aspiration of CSF: no Test dose: negative Assessment: Sensory level - left: full eval pending Sensory level - right: full eval pending Events: patient tolerated procedure well with no complications IST FOOD IST FOOD documented in this encounter Plan of Treatment Not on file documented as of this encounter Procedures Procedure Name Priority Date/Time Associated Diagnosis Comments SC AN PROCEDURE PLACEHOLDER Routine 05/22/2023 11:19 PM CHEMIST FOOD documented in this encounter Results * SC AN PROCEDURE PLACEHOLDER (05/22/2023 11:19 PM CHEMIST FOOD) Narrative Luma Ramirez MD - 05/22/2023 11:19 PM CHEMIST FOOD Luma Ramirez MD ? 05/22/2023 11:23 PM Epidural Block Patient location: L&D End time: 05/22/2023 11:30 PM Reason for block: labor analgesia Staff: Supervising provider: Luma Ramirez MD Placed by: Resident: Noni Vega MD Procedure prep: Preprocedure checklist: patient identified, procedure contraindications assessed, procedure consent obtained, surgical consent, IV checked, risks, benefits and alternatives discussed, monitors and equipment checked and timeout performed Patient Position: sitting Procedure performed while patient: awake Monitoring: oximetry and blood pressure Prep solution: chlorhexadine/alcohol PPE: provider hat/mask, sterile gloves and sterile drape Skin infiltrated with lidocaine 1%: yes Epidural: Approach: midline Imaging guidance used: no Location: L3-4 Number of attempts:1 Epidural needle: Injection technique: JACKLYN saline Needle type: Tuohy Needle gauge: 17 G Needle length: 9 cm Loss of resistance: 6 cm Catheter: Catheter type: multi-orifice. Catheter at skin depth: 11 cm Negative aspiration of blood: no Negative aspiration of CSF: no Test dose: negative Assessment: Sensory level - left: full eval pending Sensory level - right: full eval pending Events: patient tolerated procedure well with no complications Luma Ramirez MD ANESTHESIA ORDERABLES Edite d Result - Final documented in this encounter Visit Diagnoses Not on filedocumented in this encounter Administered Medications Inactive Administered Medications - up to 3 most recent administrations Medication Order MAR Action Action Date Dose Rate Site BUPivacaine (MARCAINE) 10 mL in sodium chloride 0.9% 20 mL epidural epidural, Continuous PRN, Starting on 05/23/23 at 0020, Anesthesia Intra-op New Bag 05/23/2023 12:18 AM CHEMIST FOOD 10 mL fentaNYL-BUPivacaine preservative free in 0.9% sodium chloride 2 mcg/mL- 0.1 % cassette (premix) Continuous Rate: 10 mL/hr, Patient Bolus Dose: other, Patient Bolus Dose (mL): 6, Lockout Interval: 15 Minutes, epidural, Continuous, Starting on Thu05/22/23 at 2330, Until 05/23/23 at 1204, 100 mL, Indications: Pain, Stop epidural infusion after placental delivery and any indicated repair is complete., RoutineIndications:Pain New Syringe/Cartridge 05/23/2023 10:51 AM CHEMIST FOOD New Syringe/Cartridge 05/23/2023 5:55 AM CHEMIST FOOD Rate/Dose Verify 05/22/2023 11:30 PM CHEMIST FOOD lidocaine-EPINEPHrine (XYLOCAINE with EPI) 1.5 %-1:200,000 preservative free injection epidural, As needed, Starting on Thu05/22/23 at 2323, Anesthesia Intra-op, Indications: Administration of Local AnesthesiaIndications:Administration of Local Anesthesia Given 05/22/2023 11:23 PM CHEMIST FOOD 3 mL documented in this encounter Care Teams Screw Machine Tool Setter Relationship Specialty Start Date End Date No, Physician PCP - General 11/01/16 documented as of this encounter
--- OUTSIDE RECORDS SUMMARY | 2024-04-02 11:52 | XMS_ITS | Encounter Summary ---
Author Organization [facility] Address [address] [place] [address] Phone Care Team Providers Care Assembly Leader Name Role Phone Provider, None Primary Care Provider Unavailabl e Reason for Visit * Reason Comments Leg Swelling Encounter Details Date Type Department Care Team ([facility] Contact Info) Description 10/12/2022 9:12 PM CDT - 10/12/2022 11:44 PM CDT Emergency 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 No / Unsure 10/12/2022 9:07 PM CDT documented as of this encounter Last Filed Vital Signs Vital Sign Reading Time Taken Comments Blood Pressure 137/86 10/12/2022 9:07 PM CDT Pulse 78 10/12/2022 9:07 PM CDT Temperature 37.3 ??C (99.1 ??F) 10/12/2022 9:07 PM CD T Respiratory Rate 16 10/12/2022 9:07 PM CDT Oxygen Saturation 100% 10/12/2022 9:07 PM CDT Inhaled Oxygen Concentration - - Weight 83.5 kg (184 lb) 10/12/2022 9:07 PM CDT Height 165.1 cm (5' 5 ) 10/12/2022 9:07 PM CDT Body Mass Index 30.62 10/12/2022 9:07 PM CDT documented in this encounter Discharge Instructions * Attachments The following attachments cannot be sent through Care Everywhere. * Acute Pain Adult (Thai) documented in this encounter ED Notes * Marcus Simon - 10/12/2022 11:43 PM CDT Patient discharged. Discharge instructions and patient educational material reviewed with patient; questions and concerns addressed; patient verbalizes understanding, using teach back. Patient discharged per ambulatory mode with slef as responsible constitution party. No distress noted at this time. * Sammy Bush MD - 10/12/2022 9:59 PM CDT Chief Complaint Patient presents with ??? Leg Swelling HPI Steve Shi is a 27 y.o. female who presents due to concern for swelling and achiness in her R thigh which she noticed this morning. She states she has also had some aching in her ankle and soft tissue swelling to her foot. She denies any injury. She states that she is 8 weeks . She denies any chest pain or sob, abdominal pain, vaginal bleeding, or numbness. She states she had preeclampsia with her prior . She has not yet seen her obgyn this . No current facility-administered medications for this encounter. No current outpatient medications on file. No Known Allergies History reviewed. No pertinent past medical history. No past surgical history on file. Social History Socioeconomic History ??? Marital status: Single Spouse name: Not on file ??? Number of children: Not on file ??? Years of education: Not on file ??? Highest education level: Not on file Occupational History ??? Not on file Tobacco Use ??? Smoking status: Not on file ??? Smokeless tobacco: Current Substance and Sexual Activity ??? Alcohol use: Yes ??? Drug use: Yes Types: Marijuana ??? Sexual activity: Not on file Other Topics Concern ??? Not on file Social History Narrative ??? Not on file BP 137/86 Pulse 78 Temp 99.1 ??F (37.3 ??C) (Tympanic) Resp 16 Ht 5' 5 (1.651 m) Wt 184 lb (83.5 kg) LMP 08/04/2021 SpO2 100% BMI 30.62 kg/m?? Review of Systems Constitutional: Negative for chills and fever. HENT: Negative for congestion, ear pain, rhinorrhea and sore throat. Eyes: Negative for discharge. Respiratory: Negative for cough, chest tightness, shortness of breath and wheezing. Cardiovascular: Negative for chest pain and palpitations. Gastrointestinal: Negative for abdominal pain, diarrhea, nausea and vomiting. Genitourinary: Negative for difficulty urinating and menstrual problem. Musculoskeletal: Positive for arthralgias (R lower extremity pain ). Negative for myalgias. Skin: Negative for rash and wound. Neurological: Negative for dizziness, syncope and headaches. All other systems reviewed and are negative. Physical Exam Vitals and nursing note reviewed. Constitutional: General: She is not in acute distress. Appearance: She is well-developed. She is not diaphoretic. HENT: Head: Normocephalic and atraumatic. Right Ear: External ear normal. Left Ear: External ear normal. Eyes: Conjunctiva/sclera: Conjunctivae normal. Pupils: Pupils are equal, round, and reactive to light. Neck: Trachea: No tracheal deviation. Cardiovascular: Rate and Rhythm: Normal rate and regular rhythm. Heart sounds: Normal heart sounds. No murmur heard. Pulmonary: Effort: Pulmonary effort is normal. No respiratory distress. Breath sounds: Normal breath sounds. No wheezing or rales. Abdominal: General: Bowel sounds are normal. There is no distension. Palpations: Abdomen is soft. Tenderness: There is no abdominal tenderness. There is no guarding or rebound. Musculoskeletal: General: No tenderness. Normal range of motion. Cervical back: Normal range of motion. Right lower leg: Edema (mild edema to R distal thigh. Mild soft tissue swelling to R dorsal foot. DP pulse intact ) present. Skin: General: Skin is warm and dry. Neurological: Mental Status: She is alert and oriented to person, place, and time. Cranial Nerves: No cranial nerve deficit. Labs Reviewed CMP (COMPREHENSIVE METABOLIC PANEL) - Abnormal; Notable for the following components: Result Value SODIUM 133 (*) CO2, VENOUS 21 (*) CREATININE, BLOOD 0.56 (*) All other components within normal limits MAGNESIUM (MG) - Normal D-DIMER - Normal Narrative: The FDA has approved this method to exclude the diagnosis of DVT and/or PE at the cutoff value of <0.50 mcg/mL FEU. COMPLETE BLOOD COUNT (CBC) WITH DIFF Narrative: The following orders were created for panel order CBC with Diff [id number]. Procedure Abnormality Status --------- ------ CBC with Auto Differential[[id number]] Final result Please view results for these tests on the individual orders. POCT URINE HCG () CBC WITH AUTO DIFFERENTIAL CMP (Comprehensive Metabolic Panel) Final Result CBC with Diff [id number] Final Result MAGNESIUM (MG) Final Result D-DIMER [id number] Final Result Procedures Imaging Results None Labs Reviewed CMP (COMPREHENSIVE METABOLIC PANEL) - Abnormal; Notable for the following components: Result Value SODIUM 133 (*) CO2, VENOUS 21 (*) CREATININE, BLOOD 0.56 (*) All other components within normal limits MAGNESIUM (MG) - Normal D-DIMER - Normal Narrative: The FDA has approved this method to exclude the diagnosis of DVT and/or PE at the cutoff value of <0.50 mcg/mL FEU. COMPLETE BLOOD COUNT (CBC) WITH DIFF Narrative: The following orders were created for panel order CBC with Diff [id number]. Procedure Abnormality Status --------- ------ CBC with Auto Differential[[id number]] Final result Please view results for these tests on the individual orders. POCT URINE HCG () CBC WITH AUTO DIFFERENTIAL MDM Clinical Impression 1. Right thigh pain Disposition: Discharged 2199: Awaiting serum labs. Care of patient turned to Dr. Bush. Plan for outpatient ultrasound tomorrow if her d-dimer is elevated. Patient was endorsed to me by Santiago Reyes at the end of her shift at 10:00 p.m.. Patient was awaiting results of her lab work which was done. 2314 lab reports came back with magnesium of 1.8 and normal. CMP was normal. D- dimer was negative. CBC was normal. I went over these results in detail with the patient and ladder to ask questions. The swelling and pain in her right thigh had completely resolved and she was feeling better. 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 * Shaquille Rivas RN - 10/12/2022 9:10 PM CDT Patient ambulatory to triage with c/o of swelling to the right upper thigh that she noticed earlierthis morning. Patient took home test two weeks ago which was positive. Patient denies pain at rest but describes it as a mild pain with activity. Patient A/Ox4, VSS, resp even and nonlabored, and patient does not appear to be in any distress. documented in this encounter Plan of Treatment Not on file documented as of this encounter Procedures Procedure Name Priority Date/Time Associated Diagnosis Comments CBC WITH AUTO DIFFERENTIAL STAT 10/12/2022 10:12 PM CDT MAGNESIUM (MG) STAT 10/12/2022 10:12 PM CDT D-DIMER STAT 10/12/2022 10:12 PM CDT CMP (COMPREHENSIVE METABOLIC PANEL) STAT 10/12/2022 10:12 PM CDT COMPLETE BLOOD COUNT (CBC) WITH DIFF STAT 10/12/2022 10:12 PM CDT POCT URINE HCG () STAT 10/12/2022 9:31 PM CDT documented in this encounter Results * CBC with Auto Differential (10/12/2022 10:12 PM CDT) WBC 8.29 4.00 - 12.00 10(3)/mcL 10/12/2022 10:31 PM CDT [facility] RBC 4.71 3.80 - 5.30 10(6)/mcL 10/12/2022 10:31 PM CDT [facility] HEMOGLOBIN (HGB) 12.7 12.0 - 15.8 g/dL 10/12/2022 10:31 PM CDT [facility] HEMATOCRIT (HCT) 39.9 36.0 - 47.0 % 10/12/2022 10:31 PM CDT [facility] MCV 84.7 82.0 - 96.0 fL 10/12/2022 10:31 PM CDT [facility] MCH 27.0 26.0 - 34.0 pg 10/12/2022 10:31 PM CDT [facility] MCHC 31.8 31.0 - 36.0 g/dL 10/12/2022 10:31 PM CDT [facility] PLATELET COUNT 299 140 - 440 10(3)/mcL 10/12/2022 10:31 PM CDT [facility] RDW 14.3 11.8 - 15.5 % 10/12/2022 10:31 PM CDT [facility] MPV 10.0 9.7 - 12.4 fL 10/12/2022 10:31 PM CDT [facility] NEUTROPHILS 53.4 47.0 - 73.0 % 10/12/2022 10:31 PM CDT [facility] LYMPHOCYTES 36.4 18.0 - 42.0 % 10/12/2022 10:31 PM CDT [facility] MONOCYTES 9.5 4.0 - 12.0 % 10/12/2022 10:31 PM CDT [facility] EOSINOPHILS 0.5 0.0 - 5.0 % 10/12/2022 10:31 PM CDT [facility] BASOPHILS 0.2 0.0 - 1.0 % 10/12/2022 10:31 PM CDT [facility] ABSOLUTE NEUTROPHILS 4.42 1.60 - 7.70 10(3)/mcL 10/12/2022 10:31 PM CDT [facility] ABSOLUTE LYMPHOCYTES 3.02 1.30 - 3.20 10(3)/mcL 10/12/2022 10:31 PM CDT [facility] ABSOLUTE MONOCYTES 0.79 0.20 - 1.00 10(3)/mcL 10/12/2022 10:31 PM CDT [facility] ABSOLUTE EOSINOPHIL 0.04 0.00 - 0.40 10(3)/mcL 10/12/2022 10:31 PM CDT [facility] ABSOLUTE BASOPHILS 0.02 0.00 - 0.10 10(3)/[facility] 10/12/2022 10:31 PM CDT [facility] NRBC PER 100 WBC 0 10/13/19 10:31 PM CDT [facility] Blood Venipuncture / Unknown 10/12/2022 10:12 PM CDT 10/12/2022 10:21 PM CDT Bernadine Dhaliwal PAC HEMATOLOGY ORDERABLES Final Result Performing Organization Address City/[facility]/ZIP Co de Phone Number [facility] [address] [place] [address] * D-DIMER [id number] (10/12/2022 10:12 PM CDT) D DIMER <=0.27 <0.50 mcg/mL FEU 10/12/2022 10:43 PM CDT [facility] Blood Venipuncture / Unknown 10/12/2022 10:12 PM CDT 10/12/2022 10:21 PM CDT Narrative [facility] - 10/12/2022 10:43 PM CDT The FDA has approved this method to exclude the diagnosis of DVT and/or PE at the cutoff value of <0.50 mcg/mL FEU. Bernadine Dailey Page PAC HEMATOLOGY ORDERABLES Final Result [facility] [address] [place] [address] * MAGNESIUM (MG) (10/12/2022 10:12 PM CDT) [facility] MAGNESIUM 1.8 1.8 - 2.5 mg/dL 10/12/2022 10:50 PM CDT [facility] Blood Venipuncture / Unknown 10/12/2022 10:12 PM CDT 10/12/2022 10:21 PM CDT us Bernadine Dailey Page PAC CHEMISTRY ORDERABLES Final R esult [facility] [address] [place] [address] * (ABNORMAL) CMP (Comprehensive Metabolic Panel) (10/12/2022 10:12 PM CDT) [facility] SODIUM 133(L) 136 - 144 mmol/L 10/12/2022 10:50 PM CDT [facility] POTASSIUM 3.8 3.5 - 5.1 mmol/L 10/12/2022 10:50 PM CDT [facility] CHLORIDE 100 100 - 110 mmol/L 10/12/2022 10:50 PM CDT [facility] CO2, VENOUS 21(L) 22 - 32 mmol/L 10/12/2022 10:50 PM CDT [facility] ANION GAP 15.8 8.0 - 20.0 mmol/L 10/12/2022 10:50 PM CDT [facility] GLUCOSE 79 70 - 99 mg/dL 10/12/2022 10:50 PM CDT [facility] BUN 10 6 - 20 mg/dL 10/12/2022 10:50 PM CDT [facility] CREATININE, BLOOD 0.56(L) 0.60 - 1.10 mg/dL 10/12/2022 10:50 PM CDT [facility] BUN/CREATININE RATIO 18 12 - 20 ratio 10/12/2022 10:50 PM CDT [facility] TOTAL PROTEIN 7.1 6.0 - 8.3 g/dL 10/12/2022 10:50 PM CDT [facility] ALBUMIN 4.2 3.5 - 5.2 g/dL 10/12/2022 10:50 PM CDT [facility] Comment: The colormetric methods used for the determination of Albumin may lead to falsely elevated test results in patients suffering from renal failure or insufficiency due to interference with other proteins. A/G RATIO 1.4 1.0 - 2.0 10/12/2022 10:50 PM CDT [facility] CALCIUM 9.5 8.9 - 10.3 mg/dL 10/12/2022 10:50 PM CDT [facility] T BILI <0.3 <=1.2 mg/dL 10/12/2022 10:50 PM CDT [facility] SGOT (AST) 14 <=32 U/L 10/12/2022 10:50 PM CDT [facility] SGPT (ALT) 11 <=41 U/L 10/12/2022 10:50 PM CDT [facility] ALKALINE PHOSPHATASE 55 35 - 105 U/L 10/12/2022 10:50 PM CDT [facility] GFR, ESTIMATED >60 >=60 10/12/2022 10:50 PM CDT [facility] Comment: Creatinine Clearance is the preferred criteria for selecting drug dose adjustments in renally impaired patients. ??The GFR is provided as additional pertinent clinical information. GFR is reported in mL/min/1.73 sq m. Calculation based on the Chronic Kidney Disease Epidemiology Collaboration (CKD- EPI) equation refit without adjustment for race. GFR, EST. >60 >=60 023 10:50 PM CDT [facility] GFR, EST. 

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
--- OUTSIDE RECORDS SUMMARY | 2024-04-02 11:52 | XMS_ITS | Encounter Summary ---
Author Organization [facility] Healthcare Address [address] [place] [address] Care Team Providers Care Lan Analyst Name Role Phone No, Physician Primary Care Provider [phone] Encounter Details Date Type Department Care Team (Latest Contact Info) Description 08/13/2023 3:23 PM CDT - 08/13/2023 11:59 PM [place] [address] Pre-employment health screening examination Discharge Disposition: Discharge to home or self care Social History Tobacco Use Types Packs/Day Years Used Date Smoking Tobacco: Former Vaping Smokeless Tobacco: Current Comments:pt vapes Alcohol Use Standard Drinks/Week Comments No 0 (1 standard drink = 0.6 oz pur e alcohol) [facility] Utilities Answer Date Recorded In the past 12 months has [employer], oil, or water [employer] threatened to shut off services in your [...] 05/24/2023 How often do you attend chur ch or zoroastrianism services? More than 4 times per year 05/24/2023 Do you belong to any clubs o r organizations such as zoroastrian groups, unions, fraternal or athletic groups, or [...] staff should administer the PHQ-9) 0 05/22/2023 [facility] - Occupational Stress Questionnaire Answer Date Recorded [...] place to sleep or slept in a fci (including now)? No 05/24/2023 [place] Depression Scale Answer Date Recorded [place] Depression Scale Total 1 02/24/2023 The thought of harming myself has occurred to me . Never 02/24/2023 Personal Safety Answer Date Recorded Have you ever been in or are you currently in a harmful physical or emotional relationship or is someone making you feel afraid or unsafe? 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 Gender Identity Female 12/02/2022 6:55 PM CDT Sexual Orientation Straight 12/02/2022 6: 55 PM CDT documented as of this encounter Medications at Time of Discharge acetaminophen 500 mg capsule Take 2 capsules (1,000 mg total) by mouth every 6 (six) hours as needed for pain 60 tablet 05/25/2023 cyclobenzaprine (FLEXERIL) 10 mg tablet Take 1 tablet (10 mg total) by mouth 3 (three) times a day as needed for muscle spasms 30 tablet 05/25/2023 ibuprofen (ADVIL,MOTRIN) 600 mg tabletIndication s:Cramps Take 1 tablet (600 mg total) by mouth every 6 (six) hours as needed for pain 90 tablet 05/25/2023 PNV with [id number] 27 mg iron- 1 mg tabletIndication s:Vitamin Deficiency Prevention Take 1 tablet by mouth daily 30 tablet 11 05/25/2023 05/19/2024 polyethylene glycol (MIRALAX) 17 gram/dose bulk powderIndication s:constipation Take 17 g by mouth daily 510 g 05/25/2023 documented as of this encounter Discharge Disposition Disposition Code Departure Means Destination Discharge to home or self care documented in this encounter Plan of Treatment Not on file documented as of this encounter Procedures Procedure Name Priority Date/Time Associated Diagnosis Comments T-SPOT.TB Routine 08/13/2023 2:34 PM CDT Pre-employment health screening examination documented in this encounter Results * T-SPOT.TB Blood (08/13/2023 2:34 PM CDT) T-SPOT.TB Negative SeeBelow Comment: Normal Value: Negative A negative test result does not exclude the possibility of exposure to or infection with Mycobacterium tuberculosis (M. tuberculosis). ??Patients with recent exposure to TB infected individuals exhibiting a negative T-SPOT.TB result should be considered for retesting within 6 weeks or if other relevant clinical symptoms indicate. ??Results from T-SPOT.TB testing must be used in conjunction with each individual's epidemiological history, current medical status, and results of other diagnostic evaluations. ??The T-SPOT.TB test is qualitative and results are reported as positive, borderline or negative, given that the test controls perform as expected. In line with the Centers for Disease Control and Prevention's 2010 recommendation to report quantitative measurements alongside the qualitative result, the laboratory provides spot counts for informational purposes only. ??The T-SPOT.TB test should not be interpreted as a quantitative test. T-SPOT.TB Panel A Spot Count 0 [facility] T-SPOT.TB Panel B Spot Count 1 [facility] T-SPOT.TB Negative Control Passed [facility] T-SPOT.TB Positive Control Passed [facility] Comment: Test Performed at: [facility] [employer] [facility] [address] [place] [address] ??[id number] ? HAZEL HU,PHD Blood 08/13/2023 2:34 PM CDT 08/13/2023 7:55 PM CDT Narrative [facility] - 08/15/2023 4:59 PM CDT Patient is employed by/enrolled at:->[facility] Marc Iniguez MD LAB MICROBIOLOGY - GENERAL OR DERABLES Final Result [facility] Department [place] [address] documented in this encounter Visit Diagnoses Diagnosis Pre-employment health screening examination Health examination of defined subpopulation documented in this encounter Care Teams Lan Analyst Relationship Specialty Start Date End Date No, Physician PCP - General 11/01/16 documented as of this encounter
--- OUTSIDE RECORDS SUMMARY | 2024-04-02 11:52 | XMS_ITS | Encounter Summary ---
Author Organization [facility] Healthcare Address [address] [place] [address] Care Team Providers Care Chlorinator Operator Name Role Phone No, Physician Primary Care Provider [phone] Encounter Details Date Type Department Care Team (Late st Contact Info) Description 08/13/2023 Orders Only [facility] Healthcare Occupatiuonal Health [address] [facility] [facility] [address] (Third Floor) [place] [address] Marc Iniguez MD [address] [facility] [address] [place] [address] Social History Tobacco Use Types Packs/Day Years Used Date Smoking Tobacco: Former Vaping Smokeless Tobacco: Current Comments:pt vapes Alcohol Use Standard Drinks/Week Comments No 0 (1 standard drink = 0.6 oz pur e alcohol) [facility] Utilities Answer Date Recorded In the past 12 months has [employer], gas, oil, or water [employer] threatened to shut off services in your [...] week 05/24/2023 How often do you attend [facility] or [facility] services? More than 4 times per year 05/24/2023 Do you belong to any clubs o r organizations such as adventism groups, unions, fraternal or athletic groups, or [...] staff should administer the PHQ-9) 0 05/22/2023 [facility]at [facility] - Occupational Stress Questionnaire Answer Date [...] place to sleep or slept in a assisted (including now)? 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
--- OUTSIDE RECORDS SUMMARY | 2024-04-02 11:52 | XMS_ITS | Encounter Summary ---
Author Organization [facility] Address [address] [place] [address] Phone Care Team Providers Care Manager Mobile Name Role Phone Provider, None Primary Care Provider Unavailabl e Encounter Details Date Type Department Care Team (Late st Contact Info) Description 05/06/2021 Lab Requisition [facility] [address] [place] [address] Jania Kyle, FACILITIES ENGINEERING MANAGER, CHILD CARE ASSISTANT [address] [place] [address] Encounter for pre-employment examination Social History Tobacco Use Types Packs/Day Years Used Date Smoking Tobacco: Never Assessed Comments Unknown Sex and Gender Information Value Date Recorded Sex Assigned at Not on file Legal Sex Female 8:18 AM YOUTH ADVOCATE Gender Identity Not on file Sexual Orientation Not on file COVID-19 Exposure Response Date Recorded In the last month, have you been in contact with someone who was confirmed or suspected to have Coronavirus / COVID-19? Yes 05/06/2021 1:09 PM YOUTH ADVOCATE documented as of this encounter Plan of Treatment Not on file documented as of this encounter Procedures Procedure Name Priority Date/Time Associated Diagnosis Comments QUANTIFERON-TB GOLD PLUS Routine 05/06/2021 2:22 PM YOUTH ADVOCATE Encounter for pre-employment examination MMRV PANEL Routine 05/06/2021 2:22 PM YOUTH ADVOCATE Encounter for pre-employment examination MUMPS IGG Routine 05/06/2021 2:22 PM YOUTH ADVOCATE Encounter for pre-employment examination HERPES ZOSTER (VARICELLA) IGG Routine 05/06/2021 2:22 PM YOUTH ADVOCATE Encounter for pre-employment examination RUBEOLA (MEASLES) IGG Routine 05/06/2021 2:22 PM YOUTH ADVOCATE Encounter for pre-employment examination RUBELLA IMMUNITY IGG Routine 05/06/2021 2:22 PM YOUTH ADVOCATE Encounter for pre-employment examination HEPATITIS B SURFACE ANTIBODY (HBSAB) Routine 05/06/2021 2:22 PM YOUTH ADVOCATE Encounter for pre-employment examination documented in this encounter Results * (ABNORMAL) HERPES ZOSTER (VARICELLA) IGG (05/06/2021 2:22 PM YOUTH ADVOCATE) VARICELLA ZOSTER IGG 0.3(L) >=1.1 AI 05/06/2021 10:30 PM YOUTH ADVOCATE [facility] Blood No Phlebotomy Charged / Unknown 05/06/2021 2:22 PM YOUTH ADVOCATE 05/06/2021 5:04 PM YOUTH ADVOCATE Narrative [facility] - 05/06/2021 10:30 PM YOUTH ADVOCATE <= 0.8 Negative. ??No detectable VZV IgG antibody. 0.9 - 1.0 Equivocal >=1.1 Positive Antibody testing was performed by multiplex flow immunoassay on the iHydroRun platform. us Jania Kyle FACILITIES ENGINEERING MANAGER, CHILD CARE ASSISTANT IMMUNOLOGY ORDERABL ES Final Result Performing Organization Address City/State/[facility] Co de Phone Number [facility] [address] [place] [address], * RUBEOLA (MEASLES) IGG (05/06/2021 2:22 PM YOUTH ADVOCATE) MEASLES AB IGG 4.1 >=1.1 AI 05/06/2021 10:30 PM YOUTH ADVOCATE [facility] Blood No Phlebotomy Charged / Unknown 05/06/2021 2:22 PM YOUTH ADVOCATE 05/06/2021 5:04 PM YOUTH ADVOCATE Narrative [facility] - 05/06/2021 10:30 PM YOUTH ADVOCATE <= 0.8 Negative. ??No detectable Measles IgG antibody. 0.9 - 1.0 Equivocal >=1.1 Positive Antibody testing was performed by multiplex flow immunoassay on the BioPlex platform. us Jania Shirlene Kyle FACILITIES ENGINEERING MANAGER, CHILD CARE ASSISTANT IMMUNOLOGY ORDERABL ES Final Result Performing Organization Address City/[facility]/ZIP Co de Phone Number [facility] [address] [place] [address], [place] * RUBELLA IMMUNITY IGG (05/06/2021 2:22 PM YOUTH ADVOCATE) RUBELLA IMMUNITY Immune Immune, Invalid 05/06/2021 10:30 PM YOUTH ADVOCATE [facility] Blood No Phlebotomy Charged / Unknown 05/06/2021 2:22 PM YOUTH ADVOCATE 05/06/2021 5:04 PM YOUTH ADVOCATE Narrative [facility] - 05/06/2021 10:30 PM YOUTH ADVOCATE Antibody testing was performed by multiplex flow immunoassay on the BioPlex platform. us Jania Shirlene Kyle FACILITIES ENGINEERING MANAGER, CHILD CARE ASSISTANT CHEMISTRY ORDERABLE S Final Result Performing Organization Address [facility] Co de Phone Number [facility] [address] [place] [address], [place] * MUMPS IGG (05/06/2021 2:22 PM YOUTH ADVOCATE) Mumps Ab IgG 2.0 >=1.1 AI 05/06/2021 10:30 PM YOUTH ADVOCATE [facility] Blood No Phlebotomy Charged / Unknown 05/06/2021 2:22 PM YOUTH ADVOCATE 05/06/2021 5:04 PM YOUTH ADVOCATE Narrative [facility] - 05/06/2021 10:30 PM YOUTH ADVOCATE <= 0.8 Negative. ??No detectable Mumps IgG antibody. 0.9 - 1.0 Equivocal >=1.1 Positive Antibody testing was performed by multiplex flow immunoassay on the BioPlex platform. us Jania Shirlene Jarvisrenrhonda FACILITIES ENGINEERING MANAGER, CHILD CARE ASSISTANT IMMUNOLOGY ORDERABL ES Final Result [facility] [address] [place] [address], * QUANTIFERON-TB GOLD PLUS (05/06/2021 2:22 PM YOUTH ADVOCATE) NIL CONTROL 0.04 <8.01 IU/mL 05/08/2021 12:54 PM YOUTH ADVOCATE [facility] TB ANTIGEN 1 0.04 <0.35 IU/mL 05/08/2021 12:54 PM YOUTH ADVOCATE [facility] TB ANTIGEN 2 0.01 <0.35 IU/mL 05/08/2021 12:54 PM YOUTH ADVOCATE [facility] MITOGEN CONTROL >10.00 >0.49 IU/mL 05/08/19 12:54 PM YOUTH ADVOCATE [facility] INTEPRETATION TB NEGATIVE NEGATIVE, NEGATIVE (TB antigen response less than 25% of internal negative control value) 05/08/2021 12:54 PM YOUTH ADVOCATE [facility] Comment:No immune response t o Mycobacterium tuberculosis antigens was noted. M. tuberculosis infection unlikely. Blood No Phlebotomy Charged / Unknown 05/06/2021 2:22 PM YOUTH ADVOCATE 05/07/2021 6:17 AM YOUTH ADVOCATE Narrative [facility] - 05/08/2021 12:54 PM YOUTH ADVOCATE A POSITIVE QUANTIFERON-TB GOLD PLUS RESULT SHOULD NOT BE THE SOLE OR DEFINITIVE BASIS FOR DETERMINING INFECTION WITH M. TUBERCULOSIS. Diagnosing or excluding tuberculosis disease, and assessing the probability of LTBI, requires a combination of epidemiological, historical, medical and diagnostic findings (e.g., acid fast bacilli (AFB) smear and culture, chest xray) that should be taken into account when interpreting QFT-Plus results. ??Furthermore, the magnitude of the measured gamma interferon level cannot be correlated to stage or degree of infection, level of immune responsiveness, or likelihood for progression to active disease. The Nil control adjusts for background (e.g., elevated levels of circulating gamma interferon or presence of heterophile antibodies). The Mitogen control serves as an internal positive control and verifies each specimen tested can produce a gamma interferon response. Low mitogen may occur with insufficient lymphocytes, reduced lymphocyte activity due to improper specimen handling, filling/mixing of the Mitogen tube, or inability of the patient's lymphocytes to generate gamma interferon. Infection with other Mycobacteria, including M. kansasii, ??M. szulgai, and M. marinum, may cause positive results. A negative QuantiFERON-TB Gold Plus result does not preclude the possibility of M. tuberculosis infection or tuberculosis disease: false negative results can be due to stage of infection (e.g., specimen obtained prior to the development of cellular immune response), co-morbid conditions which affect immune function, or other individual immunological factors. The minimum number of lymphocytes required for a reliable test result has not been established and may also be variable. The performance of the [place] format of the QuantiFERON-TB Gold Plus test has not been extensively evaluated with specimens from the following groups of individuals: 1. Individuals who have impaired or altered immune function such as those who have HIV infection or AIDS; those who have transplantation managed with immunosuppressive treatment; or others who receive immunosuppressive drugs (e.g., corticosteroids, methotrexate, azathioprine, cancer chemotherapy); and those who have other clinical conditions: diabetes, silicosis, chronic renal failure, hematological disorders (e.g., leukemia and lymphomas), and other specific malignancies (e.g., carcinoma of the head or neck and lung). 2. Individuals younger than age 17 years 3. women Jnaia Kyle APRN, BEKAH IMMUNOLOGY ORDERABL ES Final Result Performing Organization Address City/[facility] Co de Phone Number [facility] [address] [place] [address], * HEPATITIS B SURFACE ANTIBODY (HBSAB) (05/06/2021 2:22 PM YOUTH ADVOCATE) HEPATITIS B SURFACE ANTIBODY <8.00 mIU/mL [facility] ARCH [id number] 05/06/2021 10:24 PM YOUTH ADVOCATE [facility] Comment:Individual is consid ered not immune to HBV infection. Blood No Phlebotomy Charged / Unknown 05/06/2021 2:22 PM YOUTH ADVOCATE 05/06/2021 5:02 PM YOUTH ADVOCATE us Jania Kyle APRN, CHILD CARE ASSISTANT CHEMISTRY ORDERABLE S Final Result Performing Organization Address [facility]/State/ZIP Co de Phone Number [facility] [address] [place] [address], documented in this encounter Visit Diagnoses Diagnosis Encounter for pre-employment examination Health examination of defined subpopulation documented in this encounter Care Teams Manager Mobile Relationship Specialty Start Date End Date Provider, Theresa GIVENS PCP - General 05/06/21 documented as of this encounter
--- OUTSIDE RECORDS SUMMARY | 2024-04-02 11:52 | XMS_ITS | Encounter Summary ---
Author Organization [facility] Healthcare Address [address] [place] [address] Care Team Providers Care Crew Member Name Role Phone No, Physician Primary Care Provider [phone] Reason for Visit * Reason Onset Date Comments Outgoing Call 05/20/2023 Encounter Details Date Type Department Care Team (Late st Contact Info) Description 05/20/[address] [address] Enrique Conner RN Outgoing Call Social History Tobacco Use Types Packs/Day Years Used Date Smoking Tobacco: Former Vaping Smokeless Tobacco: Current Comments:pt vapes Alcohol Use Standard Drinks/Week Comments No 0 (1 standard drink = 0.6 oz pur e alcohol) AUDIT-C Answer Date Recorded Q1: How often do you have a drink containing alc ohol? Never 08/20/2020 Average Number of Drinks Not on file 021 Frequency of Binge Drinking Not on file 08/11 Hunger Vital Sign Answer Date Recorded Within the past 12 months, y ou worried that your food would run out before you got the money to buy more. Never true 05/18/19 24 Within the past 12 months, t he food you bought just didn't last and you didn't have money to get more. Never true 05/18/2023 [place] Depression Scale Answer Date Recorded [place] Depression Scale Total 1 02/24/2023 The thought of harming myself has occurred to me . Never 02/24/2023 Personal Safety Answer Date Recorded Getting School Help Needed Not on file 03/23 Comments Yes Sex and Gender Information Value Date Recorded Sex Assigned at Not on file Legal Sex Female 8:40 PM GATE MANAGER Gender Identity Female 12/02/2022 6:55 PM CDT Sexual Orientation Straight 12/02/2022 6: 55 PM CDT documented as of this encounter Miscellaneous Notes * Telephone Encounter - Enrique Conner RN - 05/20/2023 2:49 PM CST Contacted patient for pre IOL education. Pt out shopping and requesting information be sent thru her My Chart. Patient scheduled for an Induction of Labor on 05/22/23 @ 1999. COVID screening: Patient denies S&S, exposure to anyone sick or known covid +. States wears mask, practices socialdistancing, and handwashing. Has self quarantined as much as possible. Please call us if you have been around anyone sick or who has been COVID positive in the last [address] [facility] is no longer requiring universal masking in their facilities. If you are having any respiratory symptoms, please wear a mask. If you'd prefer staff to wear a mask in your presence, please let your care team know upon arrival. Day before Induction: L&D is located in the [facility]. Our address is [address] [place] [address]. You may eat and drink regularly. Arrange for child development professor if needed. Day of IOL: You may have light (breakfast) (dinner) the (morning) (evening) of your induction before arrival. Take any medicine with a sip of water only if your provider has told you to take it. Turnoff of [facility] into Entrance D ([facility]). Parking is located under the [facility]. Please use the Women's & Infants elevator [facility]. Come directly to L&D on the 5th floor. Your support person can join you at the scheduled time of your induction. If you have an Advance Directive or a Labor Plan, please bring it with you. Please leave your valuables at home. Ifyou wear contact lens, please bring your case and glasses with you. We recommend you bring everything including the car seat in when you arrive. Additional information for you and your visitor: Women & unit on the 5th floor (Labor, WAC, APU) are open 24 hours/day, seven days a week. Those units on the 6th floor () visiting hours are 9am-9pm. The patient???s primary support person is encouraged to stay overnight in the patient???s room to provide support and care for mom and . To promote rest and quality care, visiting hours may be limited after delivery. Medical condition of the patient (mom or baby) may require more limited visitation. Children under 12 years of age must be accompanied by an adult at all times and will count in the number at the bedside. Labor and delivery visitors at bedside are limited to three at a time. Visitors may swap in and out, not to exceed the maximum number allowed. We are sorry we do not provide meals for visitors. They can go to our cafeteria or coffee shop, order out and have something delivered to our lobby, leave the hospital to eat or cone picker food from a restaurant, or a family member may bring them something to eat and they can pick it up in the lobby. Coffee shop and cafeteria are available for visitor snacks and meals. In the evening, the coffee shop and cafeteria will be closed. There is a snack machine and soda machine. Your visitor can bring something to eat and drink during the night if they prefer. Post unit is on the 6th floor. Patient will receive only one parking validation during your stay at [facility]. It will be given to you on the day you go home. Multi-use parking passes may be purchased for $20.00 in the cafeteria or gift shop daily from 7 am to 7 pm at discounted rm if your visitor is planning on leaving each night and returning in the morning. We have a mobile pharmacy on site for you to cone picker any new medications your doctor has prescribed for you, at discharge. If this is something you???d like to do, please bring some form of payment with you for this purpose. Patient verbalizes understanding all instructions. No further questions or needs. [facility] phonenumber [phone] provided for patient for any questions or S&S of illness prior to arrival. MANAGER documented in this encounter Plan of Treatment Not on file documented as of this encounter Visit Diagnoses Not on filedocumented in this encounter Care Teams Crew Member Relationship Specialty Start Date End Date No, Physician PCP - General 11/01/16 documented as of this encounter
--- OUTSIDE RECORDS SUMMARY | 2024-04-02 11:52 | XMS_ITS | Encounter Summary ---
Author Organization [facility] Address [address] [place] [address] Phone Care Team Providers Care Police Artist Name Role Phone Provider, None Primary Care Provider Unavailabl e Reason for Visit * Reason Comments Drug Problem Encounter Details Date Type Department Care Team ([facility] st Contact Info) Description 08/07/2021 3:25 AM CDT - 08/07/2021 3:32 AM CDT Emergency [facility] Emergency [address] [place] [address] Sammy Bush MD [address] [place] [address] Discharge Disposition: LWBS Social History Tobacco Use Types Packs/Day Years Used Date Smoking Tobacco: Never Assessed Alcohol Use Standard Drinks/Week Comments Yes 0 (1 standard drink = 0.6 oz pur e alcohol) Comments No Sex and Gender Information Value Date Recorded Sex Assigned at Not on file Legal Sex Female 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 No / Unsure 08/07/2021 3:19 AM CDT documented as of this encounter Last Filed Vital Signs Vital Sign Reading Time Taken Comments Blood Pressure 120/68 08/07/2021 3:22 AM CDT Pulse 69 08/07/2021 3:20 AM CDT Temperature 36.8 ??C (98.2 ??F) 08/07/2021 3:20 AM CD T Respiratory Rate 18 08/07/2021 3:20 AM CDT Oxygen Saturation 91% 08/07/2021 3:20 AM CDT Inhaled Oxygen Concentration - - Weight 79.4 kg (175 lb) 08/07/2021 3:20 AM CDT Height 162.6 cm (5' 4 ) 08/07/2021 3:20 AM CDT Body Mass Index 30.04 08/07/2021 3:20 AM CDT documented in this encounter ED Notes * Velma Pearson RN - 08/07/2021 3:27 AM CDT Pt left before nurse or ERP had a chance to see her. Pt walked out with a steady gait. * Karen Purvis RN - 08/07/2021 3:22 AM CDT Patient presents to ED triage ambulatory with reports of taking too much estacy and feeling tingling. Patient also reports that there have been >mites in her car that are flying in her mouth . Patient reports that she has been taking this drug for a week and just thinks she might have overdone it. Patient VSS and no acute distress noted documented in this encounter Plan of Treatment Not on file documented as of this encounter Visit Diagnoses Not on filedocumented in this encounter Care Teams Police Artist Relationship Specialty Start Date End Date Provider, None [place] PCP - General 05/06/21 documented as of this encounter
--- OUTSIDE RECORDS SUMMARY | 2024-04-02 11:52 | XMS_ITS | Encounter Summary ---
Author Organization [facility] Address [address] [place] [address] Care Team Providers Care Lapping Machine Operator Name Role Phone Unavailable Primary Care Provider Unavailabl e Encounter Details Date Type Department Care Team (Late st Contact Info) Description 06/08/2001 Orders Only [facility] - Laboratory [address] [place] [address] Provider, MD Breezy Social History Tobacco Use Types Packs/Day Years Used Date Smoking Tobacco: Never Assessed Sex and Gender Information Value Date Recorded Sex Assigned at Not on file Gender Identity Not on file Sexual Orientation Not on file documented as of this encounter Plan of Treatment Not on file documented as of this encounter Procedures Procedure Name Priority Date/Time Associated Diagnosis Comments GROSS + MICRO EXAM [facility] 06/08/2001 1: 30 PM TRAVEL PHYSICAL THERAPIST documented in this encounter Results * GROSS + MICRO EXAM (06/08/2001 1:30 PM TRAVEL PHYSICAL THERAPIST) Result CASE NUMBER [id number] [facility] PATH REPORT Comment: ORDERING PHYSICIAN ??SOY TELLO SPECIMEN TYPE ?Preauricular Pit CLINICAL HISTORY ? 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 GROSS DESCRIPTION ? The specimen is received in a single saline-filled container labeled with the patient's name and preauricular pit . ??It consists of a single unoriented ellipse of brown skin with attached subcutaneous tissue as well as a separate segment of peoples-red soft tissue. ??The skin measures 0.6 x 0.2 cm. ??The underlying soft tissue measures 1.0 x 1.5 x 0.5 cm. ??The separate soft tissue fragment measures 0.6 x 0.5 x 0.3 cm. ??The skin is remarkable for a single umbilication. ??The specimen is bisected ??the cut surface shows a peoples-brown sinus directly below the aforementioned umbilication. ??A small fragment of unremarkable peoples- white cartilage is identified at the deep surgical margin. ??The specimen is submitted in its entirety in cassette A1 . ??(LBM/akn) MICROSCOPIC DESCRIPTION ? 1 H/E. Sections of the preauricular pit show unremarkable, keratinized, hair-bearing skin. ??The underlying dermis is remarkable for a sinus tract lined by keratinizing squamous epithelium. ??The surrounding dermis shows foci of chronic inflammation and foreign body giant cell reaction. ??Unremarkable subcutis, cartilage, and skeletal muscle are also seen. ??(LBM/dcr) DIAGNOSIS ? DIAGNOSIS ??SKIN, SUBCUTIS, AND CARTILAGE, PREAURICULAR PIT , ? EXCISION ? - SQUAMOUS EPITHELIAL LINED SINUS TRACT CONSISTENT WITH ? PREAURICULAR PIT. This case has been personally reviewed and interpreted by the attending (teaching) pathologist. Buckle Assembler ? Alyson Tompkins RESIDENT IN PATHOLOG Raúl Collins M.D. PATHOLOGIST ?Tammy Lemos M.D. ELECTRONICALLY MELIZATAMMY NAVARRETE MISCELLANEOUS SAMPLES / Unknown 06/08/2001 1:30 PM TRAVEL PHYSICAL THERAPIST 06/08/2001 3:39 PM TRAVEL PHYSICAL THERAPIST Historical Provider MD LAB - PATHOLOGY/C YTOLOGY ORDERABLES [facility] LAB PATH REPORT documented in this encounter Visit Diagnoses Not on filedocumented in this encounter
--- OUTSIDE RECORDS SUMMARY | 2024-04-02 11:52 | XMS_ITS | Encounter Summary ---
Author Organization [facility] Healthcare Address [address] [place] [address] Care Team Providers Care Changeover Operator Name Role Phone No, Physician Primary Care Provider [phone] Encounter Details Date Type Department Care Team (Late st Contact Info) Description 08/13/2023 Orders Only [facility] Healthcare Occupatiuonal Health [address] [facility] [address] (Third Floor) [place] [address] Marc Iniguez MD [address] [facility] [address] [place], [place] [id number] Pre-employment health screening examination (Primary Dx) Social History Tobacco Use Types Packs/Day Years Used Date Smoking Tobacco: Former Vaping Smokeless Tobacco: Current Comments:pt vapes Alcohol Use Standard Drinks/Week Comments No 0 (1 standard drink = 0.6 oz pur e alcohol) [facility] Utilities Answer Date Recorded In the past 12 months has [employer], gas, oil, or water Ch[employer] threatened to shut off services in your [...] week 05/24/2023 How often do you attend [facility] or restorationism services? More than 4 times per year 05/24/2023 Do you belong to any clubs o r organizations such as scientology groups, unions, fraternal or athletic groups, or [...] staff should administer the PHQ-9) 0 05/22/2023 [facility] of Occupat ional [facility] - Occupational Stress Questionnaire Answer Date [...] place to sleep or slept in a usp (including now)? 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 T-SPOT.TB Panel A Spot Count 0 [facility] T-SPOT.TB Panel B Spot Count [address] [facility] T-SPOT.TB Negative Control Passed [facility] T-SPOT.TB Positive Control Passed [facility] Comment: Test Performed at: [facility] [address] [place], [place] ??[phone] ? HAZEL HU,PHD Blood 08/13/2023 2:34 PM CDT 08/13/2023 7:55 PM CDT Narrative [facility] - 08/15/2023 4:59 PM CDT Patient is employed by/enrolled at:->[facility] Medical Group Marc Iniguez MD LAB MICROBIOLOGY - GENERAL OR DERABLES Final Result [facility] Department [place] [address] documented in this encounter Visit Diagnoses Diagnosis Pre-employment health screening examination- Primary Health examination of defined subpopulation Pre-employment health screening examination Health examination of defined subpopulation documented in this encounter Care Teams Changeover Operator Relationship Specialty Start Date End Date No, Physician PCP - General 11/01/16 documented as of this encounter
--- OUTSIDE RECORDS SUMMARY | 2024-04-02 11:52 | XMS_ITS | Encounter Summary ---
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
--- OUTSIDE RECORDS SUMMARY | 2024-04-02 11:52 | XMS_ITS | Clinical Summary ---
Author Organization [facility] Address [address] [place] [address] Care Team Providers Care Rail Switch Operator Name Role Phone No, Physician Primary Care Provider [phone] Allergies No known active allergies Medications PNV with [id number] 27 mg iron- 1 mg tabletIndicatio ns:Vitamin Deficiency Prevention Take 1 tablet by mouth daily 30 tablet 11 05/25/2023 05/19/19 25 Active acetaminophen 500 mg capsule Take 2 capsules (1,000 mg total) by mouth every 6 (six) hours as needed for pain 60 tablet 05/25/2023 Active cyclobenzaprine (FLEXERIL) 10 mg tablet Take 1 tablet (10 mg total) by mouth 3 (three) times a day as needed for muscle spasms 30 tablet 05/25/2023 Active docusate sodium (COLACE) 100 mg capsuleIndicati ons:constipatio n,Stool Softener Take 1 capsule (100 mg total) by mouth 2 (two) times a day 60 capsule 05/25/2023 Active ibuprofen (ADVIL,MOTRIN) 600 mg tabletIndicatio ns:Cramps Take 1 tablet (600 mg total) by mouth every 6 (six) hours as needed for pain 90 tablet 05/25/2023 Active polyethylene glycol (MIRALAX) 17 gram/dose bulk powderIndicatio ns:constipation Take 17 g by mouth daily 510 g 05/25/2023 Active Active Problems Problem Noted Date Diagnosed Date care following vaginal delivery 05/22 Overview (05/25/2023): # ID: Afebrile. No signs/symptoms of infection. # Heme: EBL 200 mL. Hemodynamically stable. # CV/Pulm: Vital signs stable, within normal limits. #Hx PreE, NSTEMI: for continuous telemetry in labor. BNP on admission <50, HDS and asymptomatic. Tele d/c'd PPD#1. Denies CP and SOB. # GI/: Tolerating PO. Voiding spontaneously. # Pain: Controlled with above regimen. # MOC: Declines until visit. # MOF: Both formula and . Urine drug screen not indicated. Patient informed of results: N/A. # Post DVT prophylaxis: The patient has the following MAJOR risk factors none and the following MINOR risk factors BMI 30-39. SCDs ordered for VTE prophylaxis. # Disposition: Follow up task sent to [facility] scheduling pool. Desires dc home today. 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 Cleared by cardiology for this . Desires TOLAC. [facility] calculator 63%. S/p counseling. HROB: Maternal anemia in pre gnancy, antepartum, first trimester 12/05/2022 Overview (02/22/2023): - Hgb on IOB labs 9.7 with MCV 83 fL - Hemoglobin electrophoresis with normal pattern for age - Ferritin 30 - Repeat Hgb 11.9 after 4 weeks - S/p counseling Plan: - CBC qTrimester - continue iron supplementation with PNV HROB: History of non-ST elev ation myocardial infarction (NSTEMI) 12/03/2022 Overview (03/29/2023): - NSTEMI in last in setting of preeclampsia (which is an independent risk factor for NV in and per literature review) - Previously seen by cardiology, not seen since 2020, baseline BNP 12/2022 of <50 - Asymptomatic at IOB, EOB visits - Most recent cardiac cath (2020): elevated filling pressures, no evidence of CAD or SCAD - Missed cards apt 01/12 - TTE 03/25/23: SUMMARY: Normal LV systolic function. Likely normal LV wall thickness.Normal global LV Myocardial longitudinal function and LV strain pattern. Normal RV size and function. Normal LA/RA size. Mild thickened MV with mild MR. No significant abnormalty seen in other valves. Normal aortic root in current limited views. Trace pericardial effusion. Plan: - Cont ASA - Cont to encourage tobacco cessation - Repeat BNP today - Maternal cardiology recs as below Maternal Risk Assessment: - CARPREG II: Score: 3 Estimated Risk: 15% - LINA: Score: 0 Estimated Risk: 2.9% - WHO Class: II OVERALL ESTIMATED RISK OF MAJOR CARDIAC EVENT: 10% Most likely adverse cardiac events include: pre-eclampsia, volume overload, respiratory failure Risk: The risk of congenital heart defects is no increased risk. A echocardiogram IS NOT recommended during the second trimester due to maternal cardiac condition. Antepartum Management: - Clinical follow up by our office is recommended as follows: post . - Serial cardiac imaging IS recommended. We will try to move up her echo to have it done between 28-32 weeks. We will check a NTproBNP at that time - Medical therapy will include: ASA 81mg daily Delivery Planning: - Mode of delivery: No cardiac contraindication to vaginal delivery at this time - Mode of anesthesia: No cardiac contraindication anesthesia; per anesthesia recommendations - SBE prophylaxis is NOT indicated per 2020 ACC/AHA valve guidelines. - Telemetry monitoring is recommended. - Fluids: Judicious use - Filtered lines ARE NOT required - Any other specific precautions: NTproBNP on admission Post- Management: - Volume overload IS NOT anticipated 24-72 hours post-delivery. - Post- monitoring: Telemetry - Other post- recommendations: Post- BP monitoring Follow-up: Post Marijuana use during 12/03/2022 Overview (12/03/2022): Discussed with patient that current evidence suggests that THC crosses the placenta and appears in breast milk. Discussed maternal health implications- marijuana smoke contains many of the same respiratory disease-causing and carcinogenic toxins as tobacco smoke, often in concentrations several times greater than in tobacco smoke. Although it is difficult to be certain about the specific effects of cannabis on and the developing fetus, studies using laboratory animals show that in utero exogenous cannabinoid exposure may disrupt normal brain development and function. There is also data to suggest that cannabis use early in is associated with adverse outcomes related to the placenta, such as poor growth, stillbirth, and an increased risk of hypertensive disorders of . For these reasons, cannabis use in is not recommended. There are insufficient data to evaluate the effects of cannabis use on infants during and , and in the absence of such data, cannabis use is discouraged. HROB: Hx of preeclampsia, pr ior , currently 12/02/2022 Overview (05/12/2023): - H/o preeclampsia in her prior complicated by NSTEMI - Baseline labs: CBC/CMP wnl, UPC 0.05 on 12/02 - S/p counseling at IOB - TTE 03/25/23 notable for normal global LV Myocardial longitudinal function and LV strain pattern, mild thickened MV with mild MR. Trace pericardial effusion. Plan: - Cont LD ASA ppx - Plan for 39w IOL to minimize preeclampsia risk, patient agreeable HROB: Maternal varicella, non-immune 07/26/2020 Overview (02/09/2023): - Varicella NI Plan: - For varivax HROB: Tobacco use 04/09/2020 Overview (05/12/2023): - Reports vaping and cigarette use during - S/p counseling - Discussed picking up nicotine patches, has not yet done so - Pasquale ordered at last visit given continued tobacco use, hx FGR in prior , and fundal height 32 cm at 34w Plan: - Cont to address cessation qVisit - Pasquale after visit today Depression 04/09/2020 Overview (07/26/2020): Reports hx of depression, never on meds with current mood waxing/waning. Denies SI/HI. EPDS 11 at IOB visit. Referred to [facility]. Started on zoloft at 04/04 visit. 05/07: Stopped zoloft 2/2 side effects. Mood much improved w/ self coping, has appt w/ counselor. 06/21: EPDS 0, mood great. 07/26: Mood is good [] EPDS/mood check q visit HROB: Family Hx Congenital Heart Disease 020 Overview (02/09/2023): - Pt w/ sister w/ Tetrology of Fallot - Patient and FOB without hx of CHD - Several cousins on maternal side w/ CHD (unknown diagnosis) - S/p low risk counseling at IOB, declined genetic counseling Plan: - Cont exp management HROB: Encounter for supervis ion of normal in first trimester 03/23/2020 Overview (05/18/2023): *Ludmila quintanilla del* 1st Trimester: [x] Dating Criteria: L=2 [x] Labs (12/02): Rh pos, Ab , CBC with Hgb 9.6, Rubella IM, VZV NONIMM, HIV NR, RPR NR, HepBSAg NR, Hep C Ab NR [x] GC/CT/Trich: neg x3 [x] UCx: CIG [x] vitamins [x] Genetic Screening: low risk (12/02) [x] CF/SMA carrier screening: negative (12/02) [x] Hgb electrophoresis: normal pattern [x] Pap: NILM 12/02/22 [x] EPDS: PNBHS referral (if indicated) - not indicated [x] ASA at 12 weeks (if indicated) [x] DM screening: HgbA1c 5.6% 2nd Trimester: [x] Anatomy ultrasound: wnl 01/02 [x] CBC: Hgb 9.7 [x] 1hr GTT (24-28wks) wnl 101 [x] Flu Shot (Dec-Mar): 02/24 [x] Tdap (27-36wks): 03/27 [x] Rhogam (if Rh neg): not indicated [] Childbirth classes discussed [] education (colostrum, expected breast changes, plan for RTW) and breast pump ordered [] Second trimester education packet 3rd Trimester: [x] CBC/HIV/RPR/T&S: wnl [x] GBS: positive 05/11 [x] GC/CT/Trich (if indicated): N/A [] Final discussion (S2S, Baby Friendly, LC Support, PP experience) [] Third trimester education packet Last visit: [x] Last clinic visit SVE: /-3 [x] IOL start agent: CC/OT [x] Epidural: desires [x] Consents signed: 05/18/22 Counseling: [x] Method of delivery: TOLAC [x] Bottle of CHG 4% and hand out provided @ 36wks (if planned) [x] Timing of delivery: 39w IOL [x] MOC: Declines until PP visit [x] MOF: breast [] COVID-19 vaccine counseling [x] education: completed in all 3 trimesters [x] Energy Trader: TBD [] Car seat discussed [] PP depression counseling Assessment & Plan (08/16/2020 2:30 PM CDT): - Discussed use of pillow between knees at night to decrease pelvic discomfort. Provided reassurance that low pelvic pain is common in 3T. Assessment & Plan (07/26/2020 4:17 PM CDT): - Ms. Shi has some pelvic pressure, improves with warm baths. Discussed use of belt. Discussed tylenol PRN/heat packs/warm baths. Resolved Problems Problem Noted Date Diagnosed Date Resolved Date Elevated troponin 10/03/2020 12/29/2022 Overview (10/04/2020): Added automatically from request for surgery [id number] Viral syndrome 08/05/2018 04/04/2020 Fever 08/05/2018 04/04/2020 Immunizations Name Administration Dates Next Due DTaP 11/08/2001,01/25/1998 Hep A, 3 Dose 01/18/2001 Hep A, Adult 07/29/2016 Hep A, Pediatric 09/13/2014 Hib (PRP-T) 01/25/1998,01/16/1997 Influenza LAIV (Nasal) 01/08/2009 Influenza, Quadrivalent, Spl it, Intramuscular 03/06/2020 Influenza, Quadrivalent, Spl it, Preservative Free, Intramuscular 02/24/2023 MMR 01/25/1998 OPV 01/25/1998 Polio, Unspecified 01/16/1997 Tdap 03/27/2023, 1,03/19/2017,10/16 Varicella 05/25/2023, 1(Deferred: Patient Refused),01/08/2009,1996 Surgical History Surgery Date Site/Laterality Comments EAR SURGERY SECTION, LOW TRANSVERSE Medical History Medical History Date Comments Depression Urinary tract infection History of pre-eclampsia Family History Medical History Relation Name Comments Other Father Alive and well; Allergies Maternal Grandmother Allergi es; Asthma Mother Asthma; Relation Name Status Comments Father Alive Maternal Grandmother Mother Social History Tobacco Use Types Packs/Day Years Used Date Smoking Tobacco: Former Vaping Smokeless Tobacco: Current Tobacco Cessation:Ready to Q uit: Not Asked; Counseling Given: Not Answered Comments:pt vapes Alcohol Use Standard Drinks/Week Comments No 0 (1 standard drink = 0.6 oz pur e alcohol) i3 membraneities Answer Date Recorded In the past 12 months has [employer], gas, oil, or water [employer] threatened to shut off services in your [...] How often do you attend chur or sabianist services? More than 4 times per year 05/24/2023 Do you belong to any clubs o r organizations such as taoist groups, unions, fraternal or athletic groups, or [...] staff should administer the PHQ-9) 0 05/22/2023 [facility] - Occupational Stress Questionnaire Answer Date [...] place to sleep or slept in a longterm (including now)? 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 Gender Identity Female 12/02/2022 6:55 PM CDT Sexual Orientation Straight 12/02/2022 6: 55 PM CDT Obstetrics History Para Term AB IAB SAB Ectopic Multiple Livin g Live Births 2 2 2 0 2 2 Date Outcome GA Total Labor Labor/2nd/3rd Weight Sex Type Anes PTL Raquel A1 A5 Name Clin 2020 Term 40w 1d 0h 02m 0h 02m 3.35 kg (7 lb 6.2 oz) F CS-LT ranv Epidur al N Livin g 8 9 MONIKA SHI, Chas howard MD Complications: Intolera nce Delivery Location:[facility] Main C [facility] ([facility]) 2023 Term 39w 1d 0h 31m 0h 25m/0h 06m 3.09 kg (6 lb 13 oz) F Epidur al N Livin g 8 9 Jacinto reich, aZckary Swanson MD Delivery Location:[facility] Main C amp[facility] ([facility]) Last Filed Vital Signs Vital Sign Reading Time Taken Comments Blood Pressure 99/55 05/25/2023 7:20 AM TETRYL NITRATOR OPERATOR Pulse 60 05/25/2023 7:20 AM TETRYL NITRATOR OPERATOR Temperature 36.6 ??C (97.9 ??F) 05/25/2023 7:20 AM CS T Respiratory Rate 18 05/25/2023 7:20 AM TETRYL NITRATOR OPERATOR Oxygen Saturation 95% 05/25/2023 7:20 AM TETRYL NITRATOR OPERATOR Inhaled Oxygen Concentration - - Weight 96.3 kg (212 lb 4.9 oz) 05/22/2023 9:40 P M TETRYL NITRATOR OPERATOR Height 167.6 cm (5' 6 ) 06/11/2023 8:10 AM TETRYL NITRATOR OPERATOR Body Mass Index 34.27 05/22/2023 9:40 PM TETRYL NITRATOR OPERATOR Plan of Treatment Health Maintenance Due Date Last Done Comments Hepatitis B Screening 2014 Regular Well Visit/Exam 18-64 2014 Cervical Cancer Screening 12/03/2023 12/02/2022 Covid-19 Vaccine ( season) 2023 03/21/2021 Influenza Vaccine (#1) 2023 , 03/18/2021, 03/06/2020, Additional history exists Depression Screening 05/22/2024 05/22/2023, 05/22/2023, 02/24/2023 DTaP/Tdap/Td Vaccine (7 - Td or Tdap) 03/27/2033 03/27/2023, 07/05/2020, 03/19/2017, Additional history exists Hepatitis C Screening Completed 12/02/2022 Varicella Vaccines Completed 05/25/2023, 0 01/08/2009, 1995 HPV Vaccines Aged Out No longer eligi ble based on patient's age to complete this topic Pneumococcal vaccine <65 Aged Out No longer eligible based on patient's age to complete this topic Procedures Procedure Name Priority Date/Time Associated Diagnosis Comments HEPATITIS C ANTIBODY Routine 12/02/2022 3:32 PM CDT Encounter for supervision of other normal in first trimester PAP WITH REFLEX TO HIGH RISK HPV Routine 12/02/2022 1:27 PM CDT Encounter for supervision of other normal in first trimester from Last 3 Months or Most Recently Relevant to Health Maintenance Results * Hepatitis C antibody (12/02/2022 3:32 PM CDT) Hep C Ab Nonreactive Nonreactive [facility]AE[facility] Comment:Antibodies to HCV no t detected. Does NOT exclude the possibility of recent exposure to HCV. Current interpretive data was last revised on 21 Blood 12/02/2022 3:32 PM CDT 12/02/2022 4:07 PM CDT us Shruthi Keys MD LAB MICROBIOLOGY - GENERAL ORDERABLES Final Result [facility]UNICE BAEZ [address] [facility] [address] Department [place] [address] * Pap with reflex to High Risk HPV and Genotyping (Cytology Component) (12/02/2022 1:27 PM CDT) Thin prep (Pap test) 12/02/2022 1:27 PM CDT 12/02/2022 5:37 PM CDT Narrative PATHOLOGY [facility] - 12/04/2022 2:41 PM CDT EPIC results best viewed via link to PDF [facility] Lakisha Cro[facility] [place] [address] Note to Patients: This report may contain a detailed description of human tissue sent by a health care provider to the laboratory for pathologic evaluation. The content of this report is essential for diagnosis and may provide important critical findings. This information may be unfamiliar to patients to review without a medical professional present. It is advised that the patient review this report in the presence of a health care provider who can answer questions and explain the details. CYTOPATHOLOGY REPORT FINAL Patient Name: ??BRENDA SHI Gender: ??F : ??1995 (Age: 27) Address: ??[address] [place] [address] ??[id number] Hospital #: ??[id number] Service: ??MOBILE SALES CONSULTANT Location: ?? Patient Type: ??[facility] SPECIMEN Taken: ??12/02/2022 Received: ??12/02/2022 Accessioned: ??12/03/2022 Reported: ??12/04/2022 Physician(s): ??Shruthi Keys M.D. ?? FINAL INTERPRETATION SOURCE OF SPECIMEN ? Liquid based Thin Prep pap with Reflex HPV: STATEMENT OF ADEQUACY ?- Satisfactory for evaluation ?- Endocervical cells/transformation zone sample present ? GENERAL CATEGORIZATION: ?- Negative for squamous intraepithelial lesion or malignancy ? INTERPRETATION: ?- Fungal organisms morphologically consistent with ericka species ? ml/12/04/2022 14:41 Sheri Mcginnis MS, CT (ASCP) Report Electronically Reviewed and Signed Out By Sheri Mcginnis MS, CT (ASCP) 12/04/2022 14:41:52 Cervicovaginal Cytology (Pap Test) Disclaimer: The Pap test is a screening test used to detect cervical cancer and its precursors; it is not a diagnostic procedure. False negative and false positive results do occur. Pap test results should be interpreted in the context of pertinent clinical information and biopsy results as indicated. [facility] Clinical Laboratory Improvement Amendments (CLIA) mandate that cytologic and histologic results be correlated for laboratory quality lab technician & improvement standards. ??FOR ALL HIGH-GRADE CASES we request submission of follow-up histological material and/or reports that have not been previously provided so that we may fulfill said required standards. ?? Gross Description A. ??Liquid based Thin Prep pap with Reflex HPV: ??Cervical/vaginal - Screening ThinPrep with GC/Chlamydia Clinical Diagnosis and History Last Menstrual Period: unknown The patient is a 27 year old woman with cervical cancer screening. Report Images and scanned documents, if included only viewable in PDF version The performance characteristics of some immunohistochemical stains, in-situ hybridization and fluorescence in-situ hybridization tests and immunophenotyping by flow cytometry cited in this report (if any) were determined by the Surgical Pathology Department at [facility] as part of an ongoing manufacturing quality technician program and in compliance with federally mandated regulations drawn from the Clinical Laboratory Improvement Act of 1988 (CLIA '88). ??Some of these tests rely on the use of analyte specific reagents and are subject to specific labeling requirements by the US Food and Drug Administration. ??Such diagnostic tests may only be performed in a facility that is certified by the Department of Health and Human Services as a high complexity laboratory under CLIA '88. ??The FDA has determined that such clearance or approval is not necessary. ??This test is used for clinical purposes. ??It should not be regarded as investigational or for research. ??Nevertheless, federal rules concerning the medical use of analyte specific reagents require that the following disclaimer be attached to the report: This test was developed and its performance characteristics determined by the Surgical Pathology Department of [facility]. ??It has not been cleared or approved by the U. S. Food and Drug Administration. Shruthi Keys MD LAB CYTOLOGY HARRY BENDERAilyn Final Result PATHOLOGY [facility] 3rd Floor [place], [place] [phone] from Last 3 Months or Most Recently Relevant to Health Maintenance Insurance * Guarantor: Brenda Shi Account Type Relation to Patient Date of Phone Billing Address Personal/Family Self [address] [place] [address] [facility] * Guarantor: Brenda Shi Account Type Relation to Patient Date of Phone Billing Address Personal/Family Self [address] [place] [address] [facility] Advance Directives For more information, please contact: [phone] * Full Code (Latest Code Status on File) Date Activated Date Inactivated Comments 05/23/2023 12:04 PM 05/25/2023 7:42 PM * Full Code Date Activated Date Inactivated Comments 05/22/2023 9:35 PM 05/23/2023 12:04 PM Full CPR in case of cardiopulmonary arrest * Full Code Date Activated Date Inactivated Comments 10/03/2020 11:37 PM 10/06/2020 3:21 AM Full CPR in case of cardiopulmonary arrest * Full Code Date Activated Date Inactivated Comments 09/28/2020 8:57 AM 09/30/2020 5:48 PM * Full Code Date Activated Date Inactivated Comments 09/27/2020 8:49 AM 09/28/2020 8:57 AM Full CPR in case of cardiopulmonary arrest Care Teams Rail Switch Operator Relationship Specialty Start Date End Date No, Physician PCP - General 11/01/16
--- OUTSIDE RECORDS SUMMARY | 2024-04-02 11:52 | XMS_ITS | Encounter Summary ---
Author Organization [facility] Healthcare Address [address] [place] [address] Care Team Providers Care Remote Operations Producer Name Role Phone No, Physician Primary Care Provider [phone] Encounter Details Date Type Department Care Team (Late st Contact Info) Description 05/13/2023 Telephone [facility] [address] [place] [address] Shruthi Keys MD [address] [facility] [address] [facility] [address] [place] [address] Social History Tobacco Use Types Packs/Day Years [...] the money to buy more. Never true 05/11/19 24 Within the past 12 months, t he food you bought just didn't last and you didn't have money to get more. Never true 05/11/2023 [place] Depression Scale Answer Date Recorded [place] Depression Scale Total 1 02/24/2023 The thought of harming myself has occurred to me . Never 02/24/2023 Personal Safety Answer Date Recorded Getting School Help Needed Not on file 03/23 Comments Yes Sex and Gender Information Value Date Recorded Sex Assigned at Not on file Legal Sex Female 8:40 PM LUBRICATION TECHNICIAN Gender Identity Female 12/02/2022 6:55 PM CDT Sexual Orientation Straight 12/02/2022 6: 55 PM CDT documented as of this encounter Miscellaneous Notes * Telephone Encounter - Shruthi Keys MD - 05/13/2023 12:48 PM LUBRICATION TECHNICIAN R2 Update TC to patient to discuss results. Discussed normal growth US. Also discussed GBS positive results and need for PCN during labor. All questions answered. IOL scheduled for 05/22 at 8 pm, patient aware. Shruthi Keys MD PGY-2, Obstetrics & Gynecology 05/13/23 ICATION TECHNICIAN documented in this encounter Plan of Treatment Not on file documented as of this encounter Visit Diagnoses Not on filedocumented in this encounter Care Teams Remote Operations Producer Relationship Specialty Start Date End Date No, Physician PCP - General 11/01/16 documented as of this encounter
--- OUTSIDE RECORDS SUMMARY | 2024-04-02 11:52 | XMS_ITS | Encounter Summary ---
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 No / Unsure 08/07/2021 3:19 AM CDT documented as of this encounter Plan of Treatment Not on file documented as of this encounter Visit Diagnoses Not on filedocumented in this encounter Care Teams Crossing Guard Relationship Specialty Start Date End Date Provider, None [place] PCP - General 05/06/21 documented as of this encounter
--- OUTSIDE RECORDS SUMMARY | 2024-04-02 11:52 | XMS_ITS | Encounter Summary ---
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 Yes 05/06/2021 1:09 PM COUTIERIER documented as of this encounter Plan of Treatment Not on file documented as of this encounter Visit Diagnoses Not on filedocumented in this encounter Care Teams Ward Aide Relationship Specialty Start Date End Date Provider, Theresa GIVENS PCP - General 05/06/21 documented as of this encounter
--- OUTSIDE RECORDS SUMMARY | 2024-04-02 11:52 | XMS_ITS | Encounter Summary ---
Author Organization [facility] Address [address] 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 Name Role Phone Provider, None Primary Care Provider Unavailabl e Reason for Visit * Reason Comments Tingling Encounter Details Date Type Department Care Team (Late st Contact Info) Description 08/08/2021 10:50 AM CDT - 08/08/2021 11:08 AM CDT Emergency [facility] [address] [place] [address] Discharge Disposition: LWBS Social History Tobacco Use Types Packs/Day Years Used Date Smoking Tobacco: Never Assessed Smokeless Tobacco: Current Alcohol Use Standard Drinks/Week Comments Yes 0 (1 standard drink = 0.6 oz pur e alcohol) Comments No Sex and Gender Information Value Date Recorded Sex Assigned at Not on file 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 No / Unsure 08/07/2021 3:19 AM CDT documented as of this encounter Last Filed Vital Signs Vital Sign Reading Time Taken Comments Blood Pressure 100/63 08/08/2021 10:45 AM CDT Pulse 66 08/08/2021 10:45 AM CDT Temperature 36.1 ??C (97 ??F) 08/08/2021 10:45 AM CDT Respiratory Rate 18 08/08/2021 10:45 AM CDT Oxygen Saturation 98% 08/08/2021 10:45 AM CDT Inhaled Oxygen Concentration - - Weight 78.5 kg (173 lb) 08/08/2021 10:45 AM CDT Height 162.6 cm (5' 4 ) 08/08/2021 10:45 AM CDT Body Mass Index 29.7 08/08/2021 10:45 AM CDT documented in this encounter ED Notes * Bernadine Solano RN - 08/08/2021 11:07 AM CDT Manjinder called nurses stations and states patient patient says she needs to go rock picker her daughter so she is going to leave and come back. Pt left without being seen by provider. * Bernadine Solano RN - 08/08/2021 10:47 AM CDT Pt ambulatory to triage with complaints of tingling in arms and legs. Pt reports symptoms started two days ago after smoking marijuana and taking ecstasy. Pt was in the ED yesterday for same symptomsbut lwbs. Pt was also at [facility] ED prior to arrival but also lwbs. documented in this encounter Plan of Treatment Not on file documented as of this encounter Visit Diagnoses Not on filedocumented in this encounter Care Teams Veneer Taping Machine Offbearer Relationship Specialty Start Date End Date Provider, None [place] PCP - General 05/06/21 documented as of this encounter
--- OUTSIDE RECORDS SUMMARY | 2024-04-02 11:52 | XMS_ITS | Encounter Summary ---
Author Organization [facility] Healthcare Address [address] [place] [address] Care Team Providers Care Computer Trainer Name Role Phone No, Physician Primary Care Provider [phone] Reason for Visit * Auth/Cert (Routine) Specialty Diagnoses / Procedures Referred By Contac t Referred To Contact Diagnoses Encounter for induction of labor Procedures N/A Referral ID Status Reason Start Date Expiration Date Visits Re quested Visits Authorized [id number] 1 1 Encounter Details Date Type Department Care Team (Latest Contact Info) Description 05/22/2023 9:13 PM LOTTERY OFFICE MANAGER - 05/25/2023 3:42 PM LOTTERY OFFICE MANAGER Hospital Encounter [address] [id number] Lakisha Sunshine MD [address] [place] [id number] Delmy Awad MD [address] [facility] [phone] [place] [address] Encounter for induction of labor (Primary Dx) Discharge Disposition: Discharge to home or self care Social History Tobacco Use Types Packs/Day Years Used Date Smoking Tobacco: Former Vaping Smokeless Tobacco: Current Comments:pt vapes Alcohol Use Standard Drinks/Week Comments No 0 (1 standard drink = 0.6 oz pur e alcohol) [facility] Utilities Answer Date Recorded In the past 12 months has th e electric, gas, oil, or water [employer] threatened to shut off services in your [...] often do you attend chur ch or scientologist services? More than 4 times per year 05/24/2023 Do you belong to any clubs o r organizations such as cheondoism groups, unions, fraternal or athletic groups, or [...] staff should administer the PHQ-9) 0 05/22/2023 [facility] - Occupational Stress Questionnaire Answer Date Recorded [...] place to sleep or slept in a care home (including now)? No 05/24/2023 [place] Depression Scale Answer Date Recorded [place] Depression Scale Total 1 02/24/2023 The thought [...] on file Legal Sex Female 8:40 PM LOTTERY OFFICE MANAGER Gender Identity Female 12/02/2022 6:55 PM CDT Sexual Orientation Straight 12/02/2022 6: 55 PM CDT documented as of this encounter Last Filed Vital Signs Vital Sign Reading Time Taken Comments Blood Pressure 99/55 05/25/2023 7:20 AM LOTTERY OFFICE MANAGER Pulse 60 05/25/2023 7:20 AM LOTTERY OFFICE MANAGER Temperature 36.6 ??C (97.9 ??F) 05/25/2023 7:20 AM CS T Respiratory Rate 18 05/25/2023 7:20 AM LOTTERY OFFICE MANAGER Oxygen Saturation 95% 05/25/2023 7:20 AM LOTTERY OFFICE MANAGER Inhaled Oxygen Concentration - - Weight 96.3 kg (212 lb 4.9 oz) 05/22/2023 9:40 P M LOTTERY OFFICE MANAGER Height 167.6 cm (5' 6 ) 05/22/2023 9:40 PM LOTTERY OFFICE MANAGER Body Mass Index 34.27 05/22/2023 9:40 PM LOTTERY OFFICE MANAGER documented in this encounter Discharge Summaries * Mag Cote NP - 05/25/2023 9:24 AM CST Inpatient Discharge Summary Admitting Provider: Delmy Awad MD Discharge Provider: Delmy Awad* Admission Date: 05/22/2023 Discharge Date: 05/25/2023 Delivery Date/Time: 05/23/2023 at 11:33 AM Delivery method: , Spontaneous [258] Primary Discharge Diagnosis: Intrauterine at 39w1d, delivered Secondary Discharge Diagnosis: Medical Conditions Diagnosis HROB: Encounter for supervision of normal in first trimester HROB: Family Hx Congenital Heart Disease HROB: Tobacco use Depression HROB: Maternal varicella, non-immune HROB: Hx of preeclampsia, prior , currently HROB: History of non-ST elevation myocardial infarction (NSTEMI) Marijuana use during HROB: Maternal anemia in , antepartum, first trimester History of delivery care following vaginal delivery Procedures Performed: Vaginal delivery Other Treatments: Magnesium sulfate therapy: No Blood transfusion: No Hospital Course: Brenda Shi is a 27 y.o. female at 39w1d weeks gestation, dated by L=2 with Estimated Date of Delivery: 05/29/23. Her was notable for above conditions. Vertex presentation and GBS positive confirmed on admission. She presented for induction of labor. Her induction was started with cook catheter and oxytocin. She had an epidural placed for anesthesia. She progressed to complete and delivered a viable female with apgars 8 and 9 at one and five minutes of life respectively. Delivery was uncomplicated. See L&D delivery note for full details. The patient was transferred to . Her course was uncomplicated. She was placed on telemetry for her history of NSTEMI but was asymptomatic without events. She received Varicella for VZV NI. Prior to discharge, her pain was well controlled, she was voiding, passing gas, ambulating, and meeting all post milestones. #Mother/Baby: Patient has chosen to breast and formula feed her infant and declines contraception s/p counseling. Discharge Details Physical Exam at Discharge: Discharge Condition: Stable Pulse: 60 Resp: 18 BP: 99/55 Temp: 36.6 ??C (97.9 ??F) Weight: 96.3 kg (212 lb 4.9 oz) Problem Care Following Vaginal Delivery # ID: Afebrile. No signs/symptoms of infection. [...] # Disposition: Follow up task sent to [facility] scheduling pool. Desires dc home today. #H/o tobacco use: Nicotine patch prn See full physical exam from progress note on day of discharge. Lab Results Component Value Date HCT 35.4 (L) 05/22/2023 ABORH A Positive 05/22/2023 RUBELIGG Reactive 12/02/2022 [] Iron prescribed on discharge [] Post Rhogam given [] Post MMR ordered, given, see MAR for administration record [x] Post Varivax ordered, given see MAR for administration record Immunization History Administered Date(s) Administered DTaP 01/25/1998, 11/08/2001 Hep A, 3 Dose 01/18/2001 Hep A, Adult 07/29/2016 Hep A, Pediatric 09/13/2014 Hib (PRP-T) 01/16/1997, 01/25/1998 Influenza LAIV (Nasal) 01/08/2009 Influenza, Quadrivalent, Split, Intramuscular 03/06/2020 Influenza, Quadrivalent, Split, Preservative Free, Intramuscular 02/24/2023 MMR 01/25/1998 OPV 01/25/1998 Gipis SARS-CoV-2 Monovalent Vaccination (12+ Yrs) PURPLE 03/21/2021 Polio, Unspecified 01/16/1997 Tdap 10/16/2008, 03/19/2017, 07/05/2020, 03/27/2023 Varicella 1996, 01/08/2009, 05/25/2023 Discharge Disposition: Left without being seen Code Status at Discharge: Full Discharge Instructions: SEE AVS Discharge Medications: Your medication list START taking these medications acetaminophen 500 mg capsule 1,000 mg, oral, Every 6 hours PRN cyclobenzaprine 10 mg tablet 10 mg, oral, 3 times daily PRN Commonly known as: FLEXERIL docusate sodium 100 mg capsule 100 mg, oral, 2 times daily Commonly known as: COLACE ibuprofen 600 mg tablet 600 mg, oral, Every 6 hours PRN Commonly known as: ADVIL,MOTRIN CONTINUE taking these medications PNV with [id number] 27 mg iron- 1 mg tablet 1 tablet, oral, Daily STOP taking these medications aspirin 81 mg chewable tablet azelaic acid 15 % gel ASK your doctor about these medications polyethylene glycol 17 gram/dose bulk powder 17 g, oral, Daily Commonly known as: MIRALAX Ask about: Which instructions should I use? polyethylene glycol 17 gram/dose bulk powder 17 g, oral, Daily Commonly known as: MIRALAX Ask about: Which instructions should I use? Outpatient Follow-Up: Future Appointments Date Time Provider Department Center 06/08/2023 3:15 PM Shruthi Keys MD [facility] 06/11/2023 8:30 AM Sammie Schaeffer MD [facility] Cardiology 06/29/2023 3:15 PM Shruthi Keys MD [facility] Mag Cote NP 05/25/23 Cosigned by Zackary Chen MD at 05/25/2023 12:50 PM LOTTERY OFFICE MANAGER ERY OFFICE MANAGER ERY OFFICE MANAGER * Prakash Hines MD - 05/24/2023 7:43 AM CST Inpatient Discharge Summary Admitting Provider: Delmy Awad MD Discharge Provider: Delmy Awad* Admission Date: 05/22/2023 Discharge Date: 05/24/2023 Delivery Date/Time: 05/23/2023 at 11:33 AM Delivery method: , Spontaneous [258] Primary Discharge Diagnosis: Intrauterine at 39w1d, delivered Secondary Discharge Diagnosis: Medical Conditions Diagnosis HROB: Encounter for supervision of normal in first trimester HROB: Family Hx Congenital Heart Disease HROB: Tobacco use Depression HROB: Maternal varicella, non-immune HROB: Hx of preeclampsia, prior , currently HROB: History of non-ST elevation myocardial infarction (NSTEMI) Marijuana use during HROB: Maternal anemia in , antepartum, first trimester History of delivery care following vaginal delivery Procedures Performed: Vaginal delivery Other Treatments: Magnesium sulfate therapy: No Blood transfusion: No Hospital Course: Brenda Shi is a 27 y.o. female at 39w1d weeks gestation, dated by L=2 with Estimated Date of Delivery: 05/29/23. Her was notable for above conditions. Vertex presentation and GBS positive confirmed on admission. She presented for induction of labor. Her induction was started with cook catheter and oxytocin. She had an epidural placed for anesthesia. She progressed to complete and delivered a viable female with apgars 8 and 9 at one and five minutes of life respectively. Delivery was uncomplicated. See L&D delivery note for full details. The patient was transferred to . Her course was uncomplicated. She was placed on telemetry for her history of NSTEMI but was asymptomatic without events. She received Varicella for VZV NI. Prior to discharge, her pain was well controlled, she was voiding, passing gas, ambulating, and meeting all post milestones. #Mother/Baby: Patient has chosen to breast and formula feed her infant and declines contraception s/p counseling. Discharge Details Physical Exam at Discharge: Discharge Condition: Stable Pulse: 52 Resp: 16 BP: 101/54 Temp: 37.1 ??C (98.8 ??F) Weight: 212 lb 4.9 oz (96.3 kg) See full physical exam from progress note on day of discharge. Lab Results Component Value Date HCT 35.4 (L) 05/22/2023 ABORH A Positive 05/22/2023 RUBELIGG Reactive 12/02/2022 [] Iron prescribed on discharge [] Post Rhogam given [] Post MMR given [x] Post Varicella given Immunization History Administered Date(s) Administered DTaP 01/25/1998, 11/08/2001 Hep A, 3 Dose 01/18/2001 Hep A, Adult 07/29/2016 Hep A, Pediatric 09/13/2014 Hib (PRP-T) 01/16/1997, 01/25/1998 Influenza LAIV (Nasal) 01/08/2009 Influenza, Quadrivalent, Split, Intramuscular 03/06/2020 Influenza, Quadrivalent, Split, Preservative Free, Intramuscular 02/24/2023 MMR 01/25/1998 OPV 01/25/1998 Pfizer SARS-CoV-2 Monovalent Vaccination (12+ Yrs) PURPLE 03/21/2021 Polio, Unspecified 01/16/1997 Tdap 10/16/2008, 03/19/2017, 07/05/2020, 03/27/2023 Varicella 1996, 01/08/2009 Discharge Medications: Your medication list ASK your doctor about these medications aspirin 81 mg chewable tablet 81 mg, oral, Daily azelaic acid 15 % gel APPLY TO FACE TWICE A DAY Vitamin Plus Low Iron 27 mg iron- 1 mg tablet 1 tablet, oral, Daily Doctor's comments: Please provide any vitamin with iron and DHA covered by patient's insurance Generic drug: PNV with [id number] Future Appointments Date Time Provider Department Center 06/08/2023 3:15 PM Shruthi Keys MD [facility] 06/11/2023 8:30 AM Sammie Schaeffer MD [facility] Cardiology 06/29/2023 3:15 PM Shruthi Keys MD [facility] ERY OFFICE MANAGER ERY OFFICE MANAGER ERY OFFICE MANAGER documented in this encounter Discharge Instructions * Discharge Instructions* Mag Cote NP - 05/23/2023 2:28 PM LOTTERY OFFICE MANAGER Discharge Instructions - Vaginal Delivery In order to minimize social contact during COVID19 precautions, your visit maybe over the phone. Please remember to wash your hands frequently, do not touch your face, and avoid anyone with feversor cough. Stay at home as much as possible and practice social distancing. COVID19 Precautions: * Wash your hands frequently * Do not touch your face * Avoid anyone with fevers or cough * DO NOT come to clinic or the hospital with mild cold or flu-like symptoms, first call our OB communication center at [phone]. * If you have SEVERE illness including persistent shortness of breath, high fever not responsive totylenol, or nausea and vomiting preventing you from adequately orally hydrating, then call your doctor or go to the ER. Call Your Doctor If: * You have a fever of 100.4 degrees or higher. * You have vaginal bleeding more than your normal menstrual period. * You are passing large blood clots (larger than an egg). * You have a strong foul odor coming from your vagina. * You have burning, pain or difficulty urinating. * You have pain or swelling in your vagina or vulva that gets worse or does not get better. * You have nausea, vomiting or increased abdominal pain. * You have redness or pain in your calves, legs or inner thighs. * You have red, swollen painful breasts. * You have other questions or concerns * You have a headache, difficulty breathing, pain in your upper abdomen, or changes in your vision. * You have decreased urine output. * Your level of consciousness changes. * If you have a blood pressure cuff at home, check your blood pressure once a day and write it down. Call your doctor if your blood pressure is greater than 160 (top number) or 110 (bottom number). Diet: * Follow your regular diet. * Maintain liquid intake of 8 -10 glasses per day. * For constipation - drink prune juice or take stool softener medication ordered by your doctor. Eat foods with fiber (examples - raisins, prunes, washed raw vegetables, whole wheat bread, and bran). Activity: * Do not put anything in your vagina for 6 weeks. NO douching, tampons or sexual intercourse. * Weakness and fatigue are common. * Limit activities and visitors and increase as energy levels return. Rest as often as possible. * No driving while taking narcotics. * If you are not , milk will come in between the 3rd and 4th day . Wear tight support bra and use ice packs to relieve breast discomfort. Care Instructions: * You may shower and shampoo hair as desired. * You may take a tub bath 2 weeks after delivery. * For perineal discomfort sit in warm shallow water for 15-20 minutes. Do this 3-4 times a day. Anystitches you have will dissolve in about 2 weeks. Continue to use jj bottle for the next 5-7 days. Contraception: DESIRES CONDOMS / DECLINES CONTRACEPTION: You can get within 2 weeks of giving , though we recommend no sexual intercourse for at least 6 weeks. Condoms can be an effective method of control. However, other methods of control are better at preventing . Use a new condom every time you have sex. If you do not use a condom, or the condom breaks, you can use emergency contraceptive pills (Plan B) to preventpregnancy. You can get them at a pharmacy without a prescription. You can also get a prescription by calling your doctor. Emergency contraception works best if used right away. However, you can stilluse it within 5 days after unprotected sex. Feeding: : Follow unrestricted . Feed your baby based on baby's hunger cues (or atleast 8-12 feedings per 24 hours). Do NOT supplement unless instructed by Hospital Pharmacy Technician. Call your Hospital Pharmacy Technician if your baby has poor eating habits (examples: feedings decrease, no feedings in 6 hours, or spits up more than ?? of their feeding for 2 consecutive feedings). Once your baby is 5-6 days old, you should expect at least 5 wet diapers and 3 soiled diapers per day. Formula Feeding: Feed your baby based on baby's hunger cues. Your baby will eat about every three to four hours during the day. Babies usually eat on demand (when they wake up at night). Your baby will take1-3 ounces at each feeding, and this will increase as the baby grows. Formula contains all the water and nutrition your baby needs. Do NOT supplement (water, juice, cereal) unless instructed byPediatrician. Call your Hospital Pharmacy Technician if your baby has poor eating habits (examples: feedings decrease, no feedings in 6 hours, or infant spits up more than ?? of their feeding for 2 consecutive feedings). Once your baby is 5-6 days old you should expect at least 5 wet diapers and 3 soiled diapers per day. Outpatient Follow Up: Every patient needs a visit. We are currently scheduling some in person and some telemedicine visits for your visits. We are trying to keep you safe and minimize social contact due to COVID19 precautions. If you do not hear from your primary OB to set up your telephone or in person visit, please call your primary OB to set up a telephone or in person visit. Thank you for understanding and remember to wash your hands and avoid anyone with fevers or cough. Stay at home as much as possible and practice social distancing. If you yourself develop fever >100.4F, a new cough, or shortness of breath please call our centralized OB communication center at [phone]. Do not come to the hospital or clinic until you speak with a provider. Contact Information for your primary OB: [facility] - [address] [place] [address] Call to schedule an appointment to be seenwithin 4-6 weeks of delivery. Future Appointments Date Time Provider Department Center 06/08/2023 3:15 PM Shruthi Keys MD [facility] 06/11/2023 8:30 AM Sammie Schaeffer MD [address] Cardiology 06/29/2023 3:15 PM Shruthi Keys MD [facility] OB [facility] Discharge Medications: Take the following medications. Your medication list START taking these medications acetaminophen 500 mg capsule 1,000 mg, oral, Every 6 hours PRN cyclobenzaprine 10 mg tablet 10 mg, oral, 3 times daily PRN Commonly known as: FLEXERIL docusate sodium 100 mg capsule 100 mg, oral, 2 times daily Commonly known as: COLACE ibuprofen 600 mg tablet 600 mg, oral, Every 6 hours PRN Commonly known as: ADVIL,MOTRIN CONTINUE taking these medications PNV with [id number] 27 mg iron- 1 mg tablet 1 tablet, oral, Daily STOP taking these medications aspirin 81 mg chewable tablet azelaic acid 15 % gel ASK your doctor about these medications polyethylene glycol 17 gram/dose bulk powder 17 g, oral, Daily Commonly known as: MIRALAX Ask about: Which instructions should I use? polyethylene glycol 17 gram/dose bulk powder 17 g, oral, Daily Commonly known as: MIRALAX Ask about: Which instructions should I use? ERY OFFICE MANAGER ERY OFFICE MANAGER ERY OFFICE MANAGER * Attachments The following attachments cannot be sent through Care Everywhere. * Caring for Your Baby (Discharge Care) (Guatemalan) documented in this encounter Medications at Time of Discharge acetaminophen 500 mg capsule Take 2 capsules (1,000 mg total) by mouth every 6 (six) hours as needed for pain 60 tablet 05/25/2023 cyclobenzaprine (FLEXERIL) 10 mg tablet Take 1 tablet (10 mg total) by mouth 3 (three) times a day as needed for muscle spasms 30 tablet 05/25/2023 docusate sodium (COLACE) 100 mg capsuleIndicatio ns:constipation, Stool Softener Take 1 capsule (100 mg total) by mouth 2 (two) times a day 60 capsule 05/25/2023 ibuprofen (ADVIL,MOTRIN) 600 mg tabletIndication s:Cramps Take 1 tablet (600 mg total) by mouth every 6 (six) hours as needed for pain 90 tablet 05/25/2023 PNV with [id number] 27 mg iron- 1 mg tabletIndication s:Vitamin Deficiency Prevention Take 1 tablet by mouth daily 30 tablet 11 05/25/2023 05/19/2024 polyethylene glycol (MIRALAX) 17 gram/dose bulk powderIndication s:constipation Take 17 g by mouth daily 510 g 05/25/2023 documented as of this encounter Ordered Prescriptions Prescription Sig Dispense Quantity Refills Last Filled Start Date End Date polyethylene glycol (MIRALAX) 17 gram/dose bulk powderIndications: constipation Take 17 g by mouth daily 510 g 05/25/2023 ibuprofen (ADVIL,MOTRIN) 600 mg tabletIndications: Cramps Take 1 tablet (600 mg total) by mouth every 6 (six) hours as needed for pain 90 tablet 05/25/2023 docusate sodium (COLACE) 100 mg capsuleIndications :constipation,Stoo l Softener Take 1 capsule (100 mg total) by mouth 2 (two) times a day 60 capsule 05/25/2023 cyclobenzaprine (FLEXERIL) 10 mg tablet Take 1 tablet (10 mg total) by mouth 3 (three) times a day as needed for muscle spasms 30 tablet 05/25/2023 acetaminophen 500 mg capsule Take 2 capsules (1,000 mg total) by mouth every 6 (six) hours as needed for pain 60 tablet 05/25/2023 PNV with [id number] 27 mg iron- 1 mg tabletIndications: Vitamin Deficiency Prevention Take 1 tablet by mouth daily 30 tablet 11 05/25/2023 5 documented in this encounter Discharge Disposition Disposition Code Departure Means Destination Discharge to home or self care documented in this encounter Progress Notes * Mag Cote, SAMARA - 05/25/2023 9:18 AM CST Post Progress Note Admission Date: 05/22/2023 HUNTER Quevedo Zehra Shi is a 27 y.o. day 2 s/p , Spontaneous . Pain: Controlled Bleeding: lochia minimal Oral Intake: taking regular diet Voiding: without difficulty Bowel function: flatus and bowel movement Ambulating: yes Mood: stable Feeding: and bottlefeeding No acute events overnight. Denies LOZANO, visual changes, chest pain, SOB, or RUQ pain. no complaints . Understands return precautions and excited for dc home today. OBJECTIVE Vitals: Temp Min: 36.6 ??C (97.9 ??F) Max: 37 ??C (98.6 ??F) Pulse Min: 60 Max: 73 BP Min: 97/55 Max: 114/50 Resp Min: 15 Max: 18 SpO2 Min: 95 % Max: 99 % Physical Exam General: No acute distress. Neurologic: Alert and oriented Lungs: Non-labored. Clear to auscultation bilaterally. Abdomen: Soft, non distended, non-tender. Positive bowel sounds. Fundus firm below umbilicus. Incision: N/a Extremities: Warm and well-perfused. No bilateral lower extremity edema. No redness or calf tenderness. Pelvic: Deferred. Lab Review: No results found for this or any previous visit (from the past 24 hour(s)). Current Meds: Current Facility-Administered Medications Medication Dose Route Frequency Provider Last Rate Last Admin acetaminophen (TYLENOL) tablet 1,000 mg 1,000 mg oral Q6H KASIE Cathi Mcdonnell MD 1,000 mgat 05/25/23 0524 benzocaine-menthoL (DERMOPLAST) 20-0.5 % topical spray 1 spray 1 spray topical PRN Mickie Nickerson MD 1 spray at 05/24/23 0010 calcium carbonate (TUMS) chewable tablet 500 mg 500 mg oral QID PRN Mickie Nickerson MD 500 mg at 05/25/23 0525 cyclobenzaprine (FLEXERIL) tablet 10 mg 10 mg oral TID PRN Janice Castillo MD 10 mg at 05/25/23 0525 docusate sodium (COLACE) capsule 100 mg 100 mg oral BID Mickie Nickerson MD 100 mg at 05/25/23 0808 hydrocortisone (ANUSOL-HC) 2.5 % rectal cream rectal TID PRN Mickie Nickerson MD ibuprofen (ADVIL,MOTRIN) tablet 600 mg 600 mg oral Q6H PRN Mickie Nickerson MD 600 mg at 05/25/23 0524 nicotine (NICODERM CQ) 7 mg patch 24 hour 1 patch 1 patch transdermal Daily Cathi Mcdonnell MD ondansetron ODT (ZOFRAN-ODT) disintegrating tablet 4 mg 4 mg oral Q6H PRN Mickie Nickerson MD Or ondansetron (ZOFRAN) injection 4 mg 4 mg intravenous Q6H PRN Mickie Nickerson MD PNV with uoisqry-yefj-WB tablet 1 tablet 1 tablet oral Daily Mickie Nickerson MD 1 tablet at 05/25/23 0808 polyethylene glycol (MIRALAX) packet 17 g 17 g oral Daily Mickie Nickerson MD 17 g at 05/25/23 0808 ASSESSMENT/PLAN Brenda Shi is a 27 y.o. female day 2 s/p , Spontaneous . Problem Care Following Vaginal Delivery # ID: Afebrile. No signs/symptoms of infection. [...] # Disposition: Follow up task sent to [facility] scheduling pool. Desires dc home today. #H/o tobacco use: Nicotine patch prn Mag Cote [employer]IM EDGE TRIMMER-C 05/25/23 Cosigned by Zackary Chen MD at 05/25/2023 12:50 PM LOTTERY OFFICE MANAGER ERY OFFICE MANAGER ERY OFFICE MANAGER * Prakash Hines MD - 05/24/2023 5:42 AM CST Post Progress Note Delivery Date/Time: 05/23/2023 at 11:33 AM Delivery method: , Spontaneous [258] Subjective Flatus: Yes Pain: Well controlled but having some persistent cramping Denies lightheadedness or dizziness Diet: Tolerating regular diet. Ambulating independently Voiding spontaneously Lochia greater than menses Scheduled Medications acetaminophen, 1,000 mg, oral, Q6H KASIE docusate sodium, 100 mg, oral, BID nicotine, 1 patch, transdermal, Daily viatmin, 1 tablet, oral, Daily polyethylene glycol, 17 g, oral, Daily PRN Medications benzocaine-menthoL calcium carbonate cyclobenzaprine hydrocortisone ibuprofen ondansetron ODT OR ondansetron varicella zoster Vitals: Temp: [36.6 ??C (97.9 ??F)-37.1 ??C (98.8 ??F)] 37.1 ??C (98.8 ??F) Pulse: [52-76] 52 BP: (90-124)/(40-77) 101/54 Resp: [16] 16 SpO2: [94 %-100 %] 97 % Intake/Output Summary (Last 24 hours) at 05/24/2023 0900 Last data filed at 05/23/2023 1325 Gross per 24 hour Intake 705.68 ml Output 1473 ml Net -767.32 ml Physical Exam General: No acute distress. Cardiovascular: Regular rate and rhythm. Lungs: Non-labored. Abdomen: Soft, non-distended, non-tender to palpation. Fundus below umbilicus. Extremities: Warm and well-perfused. Neuro: Globally intact Recent Labs Lab Units 05/22/23 2153 WBC K/cumm 9.6 HEMOGLOBIN g/dL 11.4* HEMATOCRIT % 35.4* PLATELETS K/cumm 207 CREATININE mg/dL 0.55* AST Units/L 25 ALT Units/L 12 GLUCOSE mg/dL 81 Assessment and Plan 27 y.o. PPD#1from . Problem Care Following Vaginal Delivery # ID: Afebrile. No signs/symptoms of infection. # Heme: EBL 200 mL. Hemodynamically stable. # CV/Pulm: Vital signs stable, within normal limits. #Hx PreE, NSTEMI: for continuous telemetry in labor. BNP on admission <50, HDS and asymptomatic. D/c tele today and will restart if has recurrent chest pain # GI/: Tolerating PO. Voiding spontaneously. # [...] # Disposition: Follow up task sent to [facility] scheduling pool. Considering discharge home today vs tomorrow. Meeting criteria for discharge. #H/o tobacco use: Nicotine patch prn Ricarda Mcdonnell MD I agree with the above documentation. Continue telemetry for history of NSTEMI, no events noted on telemetry overnight. BPs overall well controlled. Consider discharge home today vs. Tomorrow pendingpeds. Mireya Quiroz MD PGY-4, Obstetrics & Gynecology OB Attending Attestation I have seen and discussed the patient, Brenda Shi, with the above provider and I am in agreementwith the plan as documented in the resident's note. Prakash Hines MD Maternal Medicine Fellow Cosigned by Zackary Chen MD at 05/25/2023 12:50 PM LOTTERY OFFICE MANAGER ERY OFFICE MANAGER ERY OFFICE MANAGER ERY OFFICE MANAGER ERY OFFICE MANAGER * Mickie Nickerson MD - 05/23/2023 11:17 AM CST R2 Update: SVE /+1. Epidural being redosed. Dr. Keys and Dr. Chen update. Mickie Nickerson MD BEATING MACHINE OPERATOR PGY-2 ERY OFFICE MANAGER * Cathi Mcdonnell MD - 05/23/2023 10:45 AM CST Labor Update Note Subjective: Patient is comfortable and and s/p epidural Objective: BP 113/61 Pulse 69 Temp 36.8 ??C (98.2 ??F) (Oral) Resp 16 Ht 167.6 cm (5' 6 ) Wt 212 lb 4.9 oz (96.3 kg) LMP 08/22/2022 SpO2 99% BMI 34.27 kg/m?? SVE: /-2 Monitoring: Baseline: 140 bpm Variability: Moderate Accelerations: Present Decelerations: Yes, recurrent late decels Uterine Activity: Contractions present, q2-4 minutes Assessment and Plan: 27 y.o. at 39w1d - Category II tracing, reassured by rapid cervical change. Will continue repositioning - Vitals reviewed and normal Cathi Mcdonnell MD PGY1 05/23/2023 ERY OFFICE MANAGER * Mickie Nickerson MD - 05/23/2023 10:40 AM CST R2 Update: SVE: /-2. FHT: 130, moderate variability, late decels, absent variability. WIll continue to resuscitate with changing position. Cervix is changing quickly. Dr. Keys updated. Mickie Nickerson MD BEATING MACHINE OPERATOR PGY-2 ERY OFFICE MANAGER * Cathi Mcdonnell MD - 05/23/2023 10:01 AM CST Labor Update Note Subjective: Patient is comfortable and and s/p epidural Objective: BP 124/70 Pulse 67 Temp 36.8 ??C (98.2 ??F) (Oral) Resp 16 Ht 167.6 cm (5' 6 ) Wt 212 lb 4.9 oz (96.3 kg) LMP 08/22/2022 SpO2 100% BMI 34.27 kg/m?? SVE: -1 Monitoring: Baseline: 130 bpm Variability: Moderate Accelerations: Present Decelerations: Yes, subtle late + rare variables Uterine Activity: Contractions present, q2-4 minutes Assessment and Plan: 27 y.o. at 39w1d - OT @ 16, cont to titrate per protocol - Category II tracing - Vitals reviewed and normal c/b: #h/o CSx1 # h/o preE in G1 # h/o NSTEMI: will keep ASA on during admission, BNP <50 on admission # VZV NI: for pp varivax # Tobacco use: for nicotine replacement # GBS positive Cathi Mcdonnell MD PGY1 05/23/2023 ERY OFFICE MANAGER ERY OFFICE MANAGER * Erinn Merrill MD - 05/23/2023 5:32 AM CST Labor Update Note S: Patient s/p epidural and comfortable O: BP 113/59 Pulse 73 Temp 36.7 ??C (98.1 ??F) (Oral) Resp 18 Ht 167.6 cm (5' 6 ) Wt 212 lb 4.9 oz (96.3 kg) LMP 08/22/2022 SpO2 98% BMI 34.27 kg/m?? SVE: 50 /-1 AROM @ 0500 moderate amount clear fluid Monitoring: Baseline: 130 bpm, Variability: Moderate, Accelerations: Present and Decelerations: None Uterine Activity: Contractions present, q2-3 minutes A/P: 27 y.o. at 39w1d Category 1 tracing Vitals: reviewed and normal Additional medications/infusions: oxytocin - will continue to titrate per protocol Sienna Merrill MD MPH PGY1 OBGYN ERY OFFICE MANAGER documented in this encounter H&P Notes * Erinn Merrill MD - 05/22/2023 9:36 PM CST Obstetrics H&P Chief Complaint: encounter for TOLAC Estimated Date of Delivery: 05/29/23 Provider[facility] HPI: Brenda Shi is a 27 y.o. female at 39w0d gestation, dated by L=2 Her is complicated by h/o CSx1, h/o preE in G1 , h/o NSTEMI, VZV NI, tobacco use, GBS positive. Reporting occasional irregular contractions, otherwise no complaints. Patient Denies: [] Contractions [x] Shortness of Breath [x] Nausea/Vomitting [x] Vaginal Bleeding [x] Headache [x] Abdominal Pain [x] Leaking of Fluid [x] Visual changes [x] Decreased Movement OB History Para Term AB Living 2 1 1 0 0 1 SAB IAB Ectopic Multiple Live Births 0 0 0 0 1 # Outcome Date GA Lbr Smith/2nd Weight Sex Delivery Anes PTL Lv 2 Current 1 Term 09/28/20 40w1d 3.35 kg (7 lb 6.2 oz) F CS-LTranv EPI N PATRICK Complications: Intolerance Name: JUDAH SHI Apgar1: 8 Apgar5: 9 AUGER MACHINE OFFBEARER History: Patient's last menstrual period was 08/22/2022. History of Abnormal Pap: NILM 12/02/22 STD History: none Past Medical History: Diagnosis Date Depression History of pre-eclampsia Urinary tract infection Chronic hypertension: No Diabetes: No Asthma: No Past Surgical History: Procedure Laterality Date SECTION, LOW TRANSVERSE EAR SURGERY Social History Tobacco Use Smoking status: Former Types: Vaping Smokeless tobacco: Current Tobacco comments: pt vapes Substance and Sexual Activity Drug use: Yes Types: Marijuana Comment: not used in a while per pt Sexual activity: Yes Partners: Male Alcohol Use: Not At Risk (08/20/2020) AUDIT-C Frequency of Alcohol Consumption: Never Average Number of Drinks: Not on file Frequency of Binge Drinking: Not on file Support System: Supported by family Safe at home: Yes family history includes Allergies in her maternal grandmother; Asthma in her mother; Other in her father. Family history of bleeding or clotting disorders: No Family history of defects, genetic disorders, or developmental delay: No No Known Allergies HOME MEDICATIONS : aspirin 81 mg chewable tablet azelaic acid 15 % gel PNV with [id number] ( Vitamin Plus Low Iron) 27 mg iron- 1 mg tablet Review of Sys: Negative except per HPI Vitals: Physical Exam: General: NAD, mood appropriate Cardiovascular: Regular rate and rhythm Pulmonary: Clear to ausculation bilaterally Abdomen: Gravid, non-tender Extremities: Warm and well perfused Speculum Exam: deferred Cervix: 2/50/-2 Monitoring: Baseline: 140 bpm, Variability: Moderate, Accelerations: Present and Decelerations: None Uterine Activity: Irregular contractions Interpretation: Reactive Ultrasound: Vertex presentation Posterior placenta Previa: No Estimated Weight: 2877g by US, date performed 05/11/23 Labs: Lab Results Component Value Date ABORH A Positive 03/27/2023 IDCOOMB Negative 03/27/2023 [id number] Nonreactive 03/27/2023 LABRPR Nonreactive 03/27/2023 RUBELIGG Reactive 12/02/2022 HEPBSAG Nonreactive 12/02/2022 GBS Positive 09/17/2020 VZVIGG Nonreactive (A) 12/02/2022 Rh pos/Ab neg/HIV NR (Resulted on: 03/27) 3rd trimester (>28 wga):yes/Rub imm/RPR NR/HepB NR/HepC NR/VZV NI/GC/CT neg GBS pos (Resulted on: 05/11/23) Assessment and Plan Problem Encounter for Induction of Labor Brenda Shi is a 27 y.o. female at 39w1d who is dated by L=2 and is being admitted for TOLAC . Admit to L&D: Consents signed and placed in chart. Labs: CBC 11.4 . Induction of labor with CC/OT, Best IOL . FWB: Continuous monitoring. Reactive NST. ID: 3rd trimester HIV (>28 wga) negative on 03/27/23. GBS negative on 05/11/23 . RPR on admission: positive, will be for PCN intra- . History of genital HSV or HSV 1/2 seropositivity: No. Membrane Status: intact. Indications for UDS: none. Verbal consent obtained for UDS: Not indicated. MOF: Plans to breastfeed. Urine drug screen not indicated. Patient informed of results: N/A. MOC: Declines contraceptive until visit . Pain management: Desires epidural. Post DVT prophylaxis: The patient has the following MAJOR risk factors none and the following MINOR risk factors BMI 30-39. SCDs will be ordered for VTE prophylaxis . complicated by: H/o preE G1 : normotensive on admission, has been taking ASA this H/o NSTEMI: will keep ASA on during admission, BNP <50 on admission VZV NI: for varivax H/o CSx1, desires TOLAC s/p counseling H/o tobacco use: offer nicotine patches during admission Plan discussed with Dr. Awad. Sienna Merrill MD MPH PGY1 OBGYN Cosigned by Delmy Awad MD at 05/23/2023 7:10 AM LOTTERY OFFICE MANAGER ERY OFFICE MANAGER ERY OFFICE MANAGER Associated attestation - Delmy Awad MD - 05/23/2023 7:10 AM LOTTERY OFFICE MANAGER I have seen and examined the patient on 05/23/23. I agree with the findings and plan of care as documented in the resident's/fellow's note.. documented in this encounter Nursing Notes * Omayra Guo RN - 05/23/2023 7:57 AM CST Upon admission to L&D, mother reported plan to breast and formula feed infant. Educated mother on risks of supplementation and/or formula use while infant learning how to breastfeed. Encouraged mother to call nursing staff for assistance with latching prn. Mother reports understanding ofall education provided and desires to supplement prn. Encouragement and support provided. 05/23/2023 7:57 AM Omayra Guo RN ERY OFFICE MANAGER documented in this encounter Miscellaneous Notes * Note - Valery Mendez RN - 05/25/2023 11:24 AM CST 05/25/23 1000 Consultation Reason for Consult Follow-up assessment Breasts/Nipples Breasts/Nipples (WDL) X Left Nipple Tender Right Nipple Tender Other OB Tools Tools Lanolin;Comfort gels;Pump Breast Pump Pump Manual;Personal Pump Review/Education Setup, frequency, and cleaning;Milk storage Initiated by DME Patient Follow-Up Consult Status Complete D.D. indicates prefers not to latch infant to breast, even with a nipple shield, but would like to pump and provide expressed breastmilk. Manual pump given and demonstrated with lanolin lubricating nipple. Return demo successful, indicates understanding on how to use. Has ordered double electric from [employer] as well. Also, DISCHARGE teaching regarding diet, meds, rest; managing engorgeme nt, cleaning and sanitizing pump kit, and milk storage info., review signs of adequate nutrition done. Resources given -BF at [facility] and Cues/diapers Literature at this time. ERY OFFICE MANAGER * Plan of Care - Lety Baum RN - 05/25/2023 8:35 AM CST Problem: Activity: Goal: Will verbalize the importance of balancing activity with adequate rest periods Outcome: Progressing Problem: Lack of Knowledge: Goal: Will have increased knowledge of Care Outcome: Progressing Problem: Coping: Goal: Ability to cope will improve Outcome: Progressing Goal: Ability to identify and utilize available resources and services will improve Outcome: Progressing Problem: Life Cycle: Goal: Risk for hemorrhage will decrease Outcome: Progressing Goal: Chance of risk for complications during the period will decrease Outcome: Progressing Problem: Nutritional: Goal: Dietary intake will improve Outcome: Progressing Goal: Mother's verbalization of comfort with process will improve Outcome: Progressing Problem: Role Relationship: Goal: Ability to interact appropriately with will improve Outcome: Progressing Problem: Sensory: Goal: General experience of comfort will improve Outcome: Progressing Goals: Clinical Goals for the Shift: vss, pain control, rest Summary: Patient is resting in bed with stable vital signs. Patient has adequate pain control. ERY OFFICE MANAGER * Plan of Care - Staci Marin - 05/24/2023 11:44 PM CST Problem: Activity: Goal: Will verbalize the importance of balancing activity with adequate rest periods Outcome: Progressing Problem: Lack of Knowledge: Goal: Will have increased knowledge of Care Outcome: Progressing Problem: Coping: Goal: Ability to cope will improve Outcome: Progressing Goal: Ability to identify and utilize available resources and services will improve Outcome: Progressing Problem: Life Cycle: Goal: Risk for hemorrhage will decrease Outcome: Progressing Goal: Chance of risk for complications during the period will decrease Outcome: Progressing Problem: Nutritional: Goal: Dietary intake will improve Outcome: Progressing Goal: Mother's verbalization of comfort with process will improve Outcome: Progressing Problem: Role Relationship: Goal: Ability to interact appropriately with will improve Outcome: Progressing Problem: Sensory: Goal: General experience of comfort will improve Outcome: Progressing Goals: Clinical Goals for the Shift: VSS, pain control and rest Summary: Patient progressing well toward goals. Pain controlled on oral medication. Patient able toambulate independently and care for self well. Voiding without difficulty. ERY OFFICE MANAGER * Initial Assessments - Sheri Mccormick, MYA - 05/24/2023 3:42 PM LOTTERY OFFICE MANAGER Reason for Admission MOB (Brneda Shi 1995) was admitted on 05/22/2023 for Encounter for induction of labor [Z34.90]. Medical History OB-AUGER MACHINE OFFBEARER care has been established with [facility]. Pediatric follow-up to be scheduled with Tracy Ayers. Medical insurance coverage is through [place] [employer]. Information Baby female was born on 05/23/2022 at EGA 39.1 weeks and has been named Jacinto Mcginnis. Delivery was , Spontaneous . [place] weighed 6lbs 13oz at delivery. [place] will be formula fed. This is mother's 2nd child. Social History Current address is [address] [place] [id number], where she lives with her partner and children. Currently [phone] (home) is the best phone number for future contact. Mother noted to have 1 other child(ben): 09/28/20 - Anabel MOB reports that her partner will be a positive support for her and her child. FOB has been present and supportive at the hospital. Mood and Anxiety Brenda Shi describes her mood during as good. Brenda Shi denies any hx of anxiety/depression/MH dx. She denies any concerns with mood instability throughout or currently. Social Work and Brenda Shahid Jose Guadalupe discussed the signs and symptoms of Mood and Anxiety Disorder. Social Work discussed and normalized increase in emotions and the importance of self-care. Social Work encouraged new mom to take time for herself and utilize supports available. Warning signs reviewed and MOB encouraged to seek medical and mental health treatment if symptoms arise including possible medication management. MOB engaged in conversation and demonstrates knowledge. Resources Provided and Goals Addressed Social Determinants of Health: Transportation Needs: No Transportation Needs (05/24/2023) PRAPARE - Transportation Lack of Transportation (Medical): No Lack of Transportation (Non-Medical): No Social Connections: Moderately Integrated (05/24/2023) Social Connection and Isolation Panel [NHANES] Frequency of Communication with Friends and Family: More than three times a week Frequency of Social Gatherings with Friends and Family: More than three times a week Attends Druze Services: More than 4 times per year Active Member of Clubs or Organizations: No Attends Club or Organization Meetings: Never Marital Status: Living with partner Food Insecurity: No Food Insecurity (05/24/2023) Hunger Vital Sign Worried About Running Out of Food in the Last Year: Never true Ran Out of Food in the Last Year: Never true Housing Stability: Low Risk (05/24/2023) Housing Stability Vital Sign Unable to Pay for Housing in the Last Year: No Number of Places Lived in the Last Year: 1 Unstable Housing in the Last Year: No Financial Resource Strain: Low Risk (05/24/2023) Overall Financial Resource Strain (CARDIA) Difficulty of Paying Living Expenses: Not very hard Family has diapers, safe sleep location, bottles, clothing, and car seat for . Family reports no barriers to accessing food, transportation, support, or finances. Safe Discharge Plan Mother bonding well with . Preparations have been made at home for and social supports are available. Follow-up medical care has been arranged. Family is connected to resources and will utilize services as needed. MYA Simon, [facility] Tax Auditor [facility] ERY OFFICE MANAGER ERY OFFICE MANAGER * Plan of Care - Yeimy Leon RN - 05/24/2023 9:46 AM CST Problem: Activity: Goal: Will verbalize the importance of balancing activity with adequate rest periods Outcome: Progressing Problem: Lack of Knowledge: Goal: Will have increased knowledge of Care Outcome: Progressing Problem: Coping: Goal: Ability to cope will improve Outcome: Progressing Goal: Ability to identify and utilize available resources and services will improve Outcome: Progressing Problem: Life Cycle: Goal: Risk for hemorrhage will decrease Outcome: Progressing Goal: Chance of risk for complications during the period will decrease Outcome: Progressing Problem: Nutritional: Goal: Dietary intake will improve Outcome: Progressing Goal: Mother's verbalization of comfort with process will improve Outcome: Progressing Problem: Role Relationship: Goal: Ability to interact appropriately with will improve Outcome: Progressing Problem: Sensory: Goal: General experience of comfort will improve Outcome: Progressing Goals: Clinical Goals for the Shift: Pain management Summary: Ensure adequate pain management ERY OFFICE MANAGER * Plan of Care - Staci Marin - 05/24/2023 3:55 AM CST Problem: Activity: Goal: Will verbalize the importance of balancing activity with adequate rest periods Outcome: Progressing Problem: Lack of Knowledge: Goal: Will have increased knowledge of Care Outcome: Progressing Problem: Coping: Goal: Ability to cope will improve Outcome: Progressing Goal: Ability to identify and utilize available resources and services will improve Outcome: Progressing Problem: Life Cycle: Goal: Risk for hemorrhage will decrease Outcome: Progressing Goal: Chance of risk for complications during the period will decrease Outcome: Progressing Problem: Nutritional: Goal: Dietary intake will improve Outcome: Progressing Goal: Mother's verbalization of comfort with process will improve Outcome: Progressing Problem: Role Relationship: Goal: Ability to interact appropriately with will improve Outcome: Progressing Problem: Sensory: Goal: General experience of comfort will improve Outcome: Progressing Goals: Clinical Goals for the Shift: VSS, pain control and rest Summary: Patient progressing well toward goals. Pain controlled on oral medication. Patient able toambulate independently and care for self well. Voiding without difficulty. ERY OFFICE MANAGER * Note - Amy Green RN - 05/23/2023 3:20 PM CST Patient stated she plans to formula and possibly breast feed her . Encouraged mother to call nursing staff for assistance with latching prn. Mother reports understanding of all educationprovided and desires to supplement prn. Encouragement and support provided. ERY OFFICE MANAGER * Plan of Care - Yeimy Leon RN - 05/23/2023 3:08 PM CST Problem: Lack of Knowledge: Goal: Verbalization of understanding the information provided will improve Outcome: Progressing Problem: Coping: Goal: Ability to identify appropriate support needs for the childbearing process will improve Outcome: Progressing Goal: Ability to verbilize concerns and feelings about labor and delivery improve Outcome: Progressing Problem: Life Cycle: Goal: Ability to maintain clinical measurements within normal limits will improve Outcome: Progressing Goal: Ability to make normal progression through stages of labor will improve Outcome: Progressing Goal: Ability to effectively push during vaginal delivery will improve Outcome: Progressing Problem: Role Relationship: Goal: Ability to demonstrate positive interaction with the child will improve Outcome: Progressing Problem: Safety: Goal: Chance of risk for complications during labor and delivery will decrease Outcome: Progressing Problem: Sensory: Goal: Relief or control of pain from uterine contractions will improve Outcome: Progressing Problem: Activity: Goal: Will verbalize the importance of balancing activity with adequate rest periods Outcome: Progressing Problem: Lack of Knowledge: Goal: Will have increased knowledge of Care Outcome: Progressing Problem: Coping: Goal: Ability to cope will improve Outcome: Progressing Goal: Ability to identify and utilize available resources and services will improve Outcome: Progressing Problem: Life Cycle: Goal: Risk for hemorrhage will decrease Outcome: Progressing Goal: Chance of risk for complications during the period will decrease Outcome: Progressing Problem: Nutritional: Goal: Dietary intake will improve Outcome: Progressing Goal: Mother's verbalization of comfort with process will improve Outcome: Progressing Problem: Role Relationship: Goal: Ability to interact appropriately with will improve Outcome: Progressing Problem: Sensory: Goal: General experience of comfort will improve Outcome: Progressing Goals: Clinical Goals for the Shift: Admit to 6800 Summary: Admitted to 6805 ERY OFFICE MANAGER * Hospital Course - Cathi Mcdonnell MD - 05/23/2023 2:26 PM LOTTERY OFFICE MANAGER Brenda Shi is a 27 y.o. female at 39w1d weeks gestation, dated by L=2 with Estimated Date of Delivery: 05/29/23. Her was notable for above conditions. Vertex presentation and GBS positive confirmed on admission. She presented for induction of labor. Her induction was started with cook catheter and oxytocin. She had an epidural placed for anesthesia. She progressed to complete and delivered a viable female infant with apgars 8 and 9 at one and five minutes of life respectively. Delivery was uncomplicated. See L&D delivery note for full details. The patient was transferred to . Her course was uncomplicated. She was placed on telemetry for her history of NSTEMI but was asymptomatic without events. She received Varicella for VZV NI. Prior to discharge, her pain was well controlled, she was voiding, passing gas, ambulating, and meeting all post milestones. #Mother/Baby: Patient has chosen to breast and formula feed her and declines contraception s/p counseling. ERY OFFICE MANAGER ERY OFFICE MANAGER ERY OFFICE MANAGER * L&D Delivery Note - Shruthi Keys MD - 05/23/2023 12:23 PM LOTTERY OFFICE MANAGER [facility] Vaginal Delivery Note Patient's Name: Brenda Shi : 1995 Attending: Zackary Chen Assisting: Shruthi Keys MD, Clinic: [facility] Primary Diagnoses: Intrauterine at 39w1d, delivered Hx Preeclampsia Hx NSTEMI Tobacco use Varicella nonimmune Delivery method: Spontaneous vaginal delivery Anesthesia: Epidural [254] Membranes: Artificial rupture, clear fluid. Time ruptured prior to delivery: 6h 34m Antibiotics: yes, PCN for GBS ppx Delivery Date: 05/23/2023 Infant Delivery Time: 11:33 AM Placenta Delivery Date & Time: 05/23/2023 11:39 AM Cord: 3 vessels [3] Delayed cord clamping: Yes, 60 seconds. Episiotomy: No Laceration: first degree, right labial, left vaginal EBL: 200 mL : living No weight on file. female APGARs: 8 / 9 Disposition: [facility] Labor Summary: Brenda Shi is a 27 y.o. female at 39w1d weeks gestation, dated by L=2 with Estimated Date of Delivery: 05/29/23. Her was notable for above conditions. Vertex presentation and GBS positive confirmed on admission. She presented for induction of labor. Her induction was started with cook catheter and oxytocin. Epidural was placed for anesthesia. Patient progressed to complete andhad an uncomplicated vaginal delivery. The cord was clamped and cut and the baby was handed to mother for skin to skin. The third stage was actively managed with external uterine massage, gentle cordtraction and pitocin. The placenta was delivered spontaneously and intact. A first degree laceration was repaired in the usual fashion. A right labial laceration was repaired in a continuous fashion.A left vaginal laceration was repaired with a single stitch. Excellent hemostasis was noted. All counts were correct before and after the delivery. Additional Procedures Performed: None Description of Additional Procedures Performed: N/A Complications: None Description of Complications: N/A Dr. Zackary Chen was present for the delivery. Shruthi Keys MD 05/23/23 Cosigned by Zackary Chen MD at 05/23/2023 7:45 PM LOTTERY OFFICE MANAGER ERY OFFICE MANAGER ERY OFFICE MANAGER Associated attestation - Zackary Chen MD - 05/23/2023 7:45 PM LOTTERY OFFICE MANAGER I was present for the entire procedure. Spontaneous vaginal delivery of 39 week . Uncomplicated delivery. Spontaneous cry and good tone in first minute of life. Zackary Chen MD * Plan of Care - Omayra Guo RN - 05/23/2023 7:34 AM CST Problem: Lack of Knowledge: Goal: Verbalization of understanding the information provided will improve Outcome: Progressing Problem: Coping: Goal: Ability to identify appropriate support needs for the childbearing process will improve Outcome: Progressing Goal: Ability to verbilize concerns and feelings about labor and delivery improve Outcome: Progressing Problem: Life Cycle: Goal: Ability to maintain clinical measurements within normal limits will improve Outcome: Progressing Goal: Ability to make normal progression through stages of labor will improve Outcome: Progressing Goal: Ability to effectively push during vaginal delivery will improve Outcome: Progressing Problem: Role Relationship: Goal: Ability to demonstrate positive interaction with the child will improve Outcome: Progressing Problem: Safety: Goal: Chance of risk for complications during labor and delivery will decrease Outcome: Progressing Problem: Sensory: Goal: Relief or control of pain from uterine contractions will improve Outcome: Progressing Clinical Goals for the Shift: vss, pain control, induction of labor, safe delivery of baby girl ERY OFFICE MANAGER * Plan of Care - Zainab Garcia RN - 05/22/2023 9:31 PM CST Problem: Lack of Knowledge: Goal: Verbalization of understanding the information provided will improve Outcome: Progressing Problem: Coping: Goal: Ability to identify appropriate support needs for the childbearing process will improve Outcome: Progressing Goal: Ability to verbilize concerns and feelings about labor and delivery improve Outcome: Progressing Problem: Life Cycle: Goal: Ability to maintain clinical measurements within normal limits will improve Outcome: Progressing Goal: Ability to make normal progression through stages of labor will improve Outcome: Progressing Goal: Ability to effectively push during vaginal delivery will improve Outcome: Progressing Problem: Role Relationship: Goal: Ability to demonstrate positive interaction with the child will improve Outcome: Progressing Problem: Safety: Goal: Chance of risk for complications during labor and delivery will decrease Outcome: Progressing Problem: Sensory: Goal: Relief or control of pain from uterine contractions will improve Outcome: Progressing Goals: Healthy mom, healthy baby, safe delivery Summary: ERY OFFICE MANAGER documented in this encounter Plan of Treatment Not on file documented as of this encounter Procedures Procedure Name Priority Date/Time Associated Diagnosis Comments US OB LIMITED Routine 05/23/2023 7:09 AM LOTTERY OFFICE MANAGER Encounter for induction of labor EGFR STAT 05/22/2023 9:53 PM LOTTERY OFFICE MANAGER PRO B-TYPE NATRIURETIC PEPTIDE Routine 05/22/2023 9:53 PM LOTTERY OFFICE MANAGER RPR STAT 05/22/2023 9:53 PM LOTTERY OFFICE MANAGER CBC WITHOUT DIFFERENTIAL STAT 05/22/2023 9:53 PM LOTTERY OFFICE MANAGER TYPE AND SCREEN STAT 05/22/2023 9:53 PM LOTTERY OFFICE MANAGER COMPREHENSIVE METABOLIC PANEL STAT 05/22/2023 9:53 PM LOTTERY OFFICE MANAGER documented in this encounter Results * US OB Limited (05/23/2023 7:09 AM LOTTERY OFFICE MANAGER) Anatomical Region Laterality Modality Abdomen N/A Ultrasound Narrative 05/23/2023 7:10 AM LOTTERY OFFICE MANAGER Vertex I have reviewed the images and agree with above. Delmy Awad MD us Delmy Awad MD IMG OB US PROCEDURES Final Result * eGFR (05/22/2023 9:53 PM LOTTERY OFFICE MANAGER) eGFR >90 >=60 mL/min/1. 73 m2 [facility] Comment: Interpretive Data Reference Interval Normal ?>/= 90 mL/min/1.73m2 Mildly decreased* ? 60 - 89 mL/min/1.73m2 Mildly to moderately decreased ?45 - 59 mL/min/1.73m2 Moderately to severely decreased ??30 - 44 mL/min/1.73m2 Severely decreased ?15 - 29 mL/min/1.73m2 Kidney Failure ?< 15 ??mL/min/1.73m2 *Relative to young adult level Estimated glomerular filtration rate is determined by the 2020 CKD-EPI equation recommended by the National [employer] (A Unifying Approach to GFR Estimation: Recommendations of the NKF-ASK Task Force on Reassessing the Inclusion of Race in Diagnosing Kidney Disease, JASN 202). The CKD-EPI equation should not be used for patients with unstable renal function and has not been validated in children and those over 70. Current interpretive data was last reviewed 2021. Blood 05/22/2023 9:53 PM LOTTERY OFFICE MANAGER 05/22/2023 10:05 PM LOTTERY OFFICE MANAGER us Delmy Awad MD LAB BLOOD ORDERABLES Final Result [facility] [place] [address] * Pro B-type natriuretic peptide (05/22/2023 9:53 PM LOTTERY OFFICE MANAGER) NT-proBNP <50 <=300 pg/mL [facility] Comment: Interpretive Comments: A. Dyspnea in Acute Care Setting All Ages: ?< 300 pg/ml, acute heart failure unlikely. < 50 yrs: ?300 - 450 pg/ml, further investigation warranted. ? > 450 pg/ml, acute heart failure likely. 50 - 74 yrs: ? 300 - 900 pg/ml, further investigation warranted. ? > 900 pg/ml, acute heart failure likely . > or = 75 yrs: ? 450 - 1800 pg/ml, further investigation warranted. ? > 1800 pg/ml, acute heart failure likely. B. Non-acute Setting < 75 yrs ? < 125 pg/ml, rules out heart failure. ? > or = 125 pg/ml, further investigation warranted. > or = 75 yrs ?< 450 pg/ml, rules out heart failure. ? > or = 450 pg/ml, further investigation warranted. - Knowledge of each individual patient's NT-proBNP range may be more useful than using similar cut-points for every patient. Please note that marked elevations in NT-proBNP levels may be observed in state other than Left Ventricular Congestive Failure, including: acute coronary syndromes, right heart strain/failure (including pulmonary embolism and cor pulmonale), critical illness, renal failure, as well as advanced age. - References: 1. Liseth NICOLAS et.al. Eur Heart J. 2006:27:330-337. 2. Darci RW, Saeid JACKSON. J. AM Loulou Cardiol: Cardiovasc Imag. 2009;2: 216- 225. Interpretive Data Last Revised Date: 2017. Blood 05/22/2023 9:53 PM LOTTERY OFFICE MANAGER 05/22/2023 10:05 PM LOTTERY OFFICE MANAGER Delmy Awad MD LAB BLOOD ORDERABLES Final Result [facility] [place] [address] * (ABNORMAL) Comprehensive metabolic panel (05/22/2023 9:53 PM LOTTERY OFFICE MANAGER) Sodium 137 135 - 145 mmol/L [facility] Potassium, pl 3.8 3.3 - 4.9 mmol/L [facility] Chloride 103 97 - 110 mmol/L [facility] CO2 22 22 - 32 mmol/L [facility] Anion gap 12 2 - 15 mmol/L [facility] BUN 8 6 - 25 mg/dL [facility] Creatinine 0.55(L) 0.60 - 1.10 mg/dL [facility] Glucose 81 70 - 199 mg/dL [facility] Comment: Interpretive Data Fasting glucose >/= 126 mg/dl is diagnostic for diabetes. ?? Fasting is defined as no caloric intake for at least 8 hours. Fasting glucose between 100 mg/dl to 125 mg/dl is diagnostic of prediabetes. In a patient with classic symptoms of hyperglycemia or hyperglycemic crisis, a random glucose >/= 200 mg/dl is diagnostic for diabetes. In the absence of unequivocal hyperglycemia, results should be confirmed by repeat testing. The classification and Diagnosis of Diabetes Diabetes Care 2022; 46: S19-S40. Current interpretive data was last revised 2022. Calcium 10.2 8.5 - 10.3 mg/dL [facility] Bilirubin, total 0.2 0.1 - 1.2 mg/dL [facility] Protein, pl 7.0 6.5 - 8.5 g/dL [facility] Albumin 3.9 3.5 - 5.0 g/dL [facility] Alk phos 125 40 - 130 Units/L [facility] ALT 12 7 - 45 Units/L [facility] AST 25 10 - 45 Units/L [facility] Blood 05/22/2023 9:53 PM LOTTERY OFFICE MANAGER 05/22/2023 10:05 PM LOTTERY OFFICE MANAGER Delmy Awad MD LAB BLOOD ORDERABLES Final Result [facility] [place] [address] * (ABNORMAL) CBC without differential (05/22/2023 9:53 PM LOTTERY OFFICE MANAGER) [facility] WBC 9.6 3.8 - 9.9 K/cumm [facility] Hgb 11.4(L) 11.9 - 15.5 g/dL [facility] Hct 35.4(L) 35.6 - 45.5 % [facility] Plt 207 150 - 400 K/cumm [facility] MPV 11.9 9.1 - 12.3 fL [facility] RBC 4.31 3.90 - 5.20 M/cumm [facility] MCV 82.1 81.3 - 96.4 fL [facility] MCH 26.5(L) 27.1 - 33.3 pg [facility] MCHC 32.2(L) 32.3 - 35.7 g/dL [facility] RDW CV 14.5 11.1 - 14.9 % [facility] RDW SD 42.5 35.7 - 48.1 fL [facility] NRBC abs 0.00 0.00 - 0.01 K/cumm [facility] Blood 05/22/2023 9:53 PM LOTTERY OFFICE MANAGER 05/22/2023 10:05 PM LOTTERY OFFICE MANAGER Delmy Awad MD LAB BLOOD ORDERABLES Final Result Performing Organization Address City/[facility]/ZIP Co de Phone Number [facility] [place] [address] * Type and screen (05/22/2023 9:53 PM LOTTERY OFFICE MANAGER) ABO Rh A Positive Mitra, indirect Negative [facility] Blood 05/22/2023 9:53 PM LOTTERY OFFICE MANAGER 05/22/2023 10:04 PM LOTTERY OFFICE MANAGER Narrative [facility] - 05/22/2023 10:56 PM LOTTERY OFFICE MANAGER Has the patient had Daratumumab or Isatuximab in the past 6 months?->Unknown Delmy Awad MD LAB BLOOD BANK TEST [place] [address] * RPR Blood (05/22/2023 9:53 PM LOTTERY OFFICE MANAGER) RPR Nonreactive Nonreactive [facility] Blood 05/22/2023 9:53 PM LOTTERY OFFICE MANAGER 05/22/2023 10:05 PM LOTTERY OFFICE MANAGER Delmy Awad MD LAB MICROBIOLOGY - G ENERAL [place]AB[place] [address] documented in this encounter Visit Diagnoses Diagnosis care following vaginal delivery- Primary Encounter for induction of labor documented in this encounter Admitting Diagnoses Diagnosis Encounter for induction of labor documented in this encounter Administered Medications Inactive Administered Medications - up to 3 most recent administrations Medication Order MAR Action Action Date Dose Rate Site acetaminophen (TYLENOL) tablet 1,000 mg 1,000 mg, oral, Every 6 hours scheduled, First dose on 05/24/23 at 0815 Given 05/25/2023 5:24 AM LOTTERY OFFICE MANAGER 1,000 mg Given 05/24/2023 11:31 PM LOTTERY OFFICE MANAGER 1,000 mg Given 05/24/2023 5:33 PM LOTTERY OFFICE MANAGER 1,000 mg acetaminophen (TYLENOL) tablet 650 mg 650 mg, oral, Every 6 hours PRN, 1st line for pain, Starting on 05/23/23 at 1204 Given 05/24/2023 6:16 AM LOTTERY OFFICE MANAGER 650 mg Given 05/24/2023 12:03 AM LOTTERY OFFICE MANAGER 650 mg Given 05/23/2023 6:08 PM LOTTERY OFFICE MANAGER 650 mg aspirin chewable tablet 81 mg 81 mg, oral, Daily, First dose on 05/23/23 at 0900 Given 05/23/2023 8:32 AM LOTTERY OFFICE MANAGER 81 mg benzocaine-menthoL (DERMOPLAST) 20-0.5 % topical spray 1 spray 1 spray, topical, As needed, other, perianal area for pain, Starting on 05/23/23 at 1204, Up to 6 times a day., Apply to affected area: perineum, Indications: Minor Skin Wound PainIndications:Minor Skin Wound Pain Given 05/24/2023 12:10 AM LOTTERY OFFICE MANAGER 1 spr ay calcium carbonate (TUMS) chewable tablet 1,000 mg 1,000 mg (400 mg of elemental calcium), oral, Every 6 hours PRN, heartburn, indigestion, Starting on 05/23/23 at 0606 Given 05/23/2023 6:14 AM LOTTERY OFFICE MANAGER 1,000 mg calcium carbonate (TUMS) chewable tablet 500 mg 500 mg, oral, 4 times daily PRN, heartburn, Starting on 05/23/23 at 1204, Indications: DyspepsiaIndications:Dyspepsia Given 05/25/2023 5:25 AM LOTTERY OFFICE MANAGER 500 mg cyclobenzaprine (FLEXERIL) tablet 10 mg 10 mg, oral, 3 times daily PRN, muscle spasms, Starting on Thu05/24/23 at 0033 Given 05/25/2023 5:25 AM LOTTERY OFFICE MANAGER 10 m g Given 05/24/2023 5:33 PM LOTTERY OFFICE MANAGER 10 mg Given 05/24/2023 9:40 AM LOTTERY OFFICE MANAGER 10 mg dextrose 5% and Lactated Ringer's infusion 125 mL/hr, intravenous, Continuous, Starting on Thu05/22/23 at 2215, L&D Pre-Delivery New Bag 05/23/2023 8:32 AM LOTTERY OFFICE MANAGER 125 mL/h r 125 mL/hr New Bag 05/22/2023 10:57 PM LOTTERY OFFICE MANAGER 125 mL/hr 125 mL/hr docusate sodium (COLACE) capsule 100 mg 100 mg, oral, 2 times daily, First dose on 05/23/23 at 1245, Hold if diarrhea., Indications: constipation, Stool SoftenerIndications:constipation,Stool Softener Given 05/25/2023 8:08 AM LOTTERY OFFICE MANAGER 100 mg Given 05/24/2023 11:32 PM LOTTERY OFFICE MANAGER 100 mg Given 05/24/2023 9:40 AM LOTTERY OFFICE MANAGER 100 mg fentaNYL-BUPivacaine preservative free in 0.9% sodium chloride 2 mcg/mL- 0.1 % cassette (premix) Continuous Rate: 10 mL/hr, Patient Bolus Dose: other, Patient Bolus Dose (mL): 6, Lockout Interval: 15 Minutes, epidural, Continuous, Starting on Thu05/22/23 at 2330, Until 05/23/23 at 1204, 100 mL, Indications: Pain, Stop epidural infusion after placental delivery and any indicated repair is complete., RoutineIndications:Pain New Syringe/Cartridge 05/23/2023 10:51 AM LOTTERY OFFICE MANAGER New Syringe/Cartridge 05/23/2023 5:55 AM LOTTERY OFFICE MANAGER Rate/Dose Verify 05/22/2023 11:30 PM LOTTERY OFFICE MANAGER ibuprofen (ADVIL,MOTRIN) tablet 600 mg 600 mg, oral, Every 6 hours PRN, other, cramping, Starting on 05/23/23 at 1204, Indications: CrampsIndications:Cramps Given 05/25/2023 5:24 AM LOTTERY OFFICE MANAGER 600 mg Given 05/24/2023 11:31 PM LOTTERY OFFICE MANAGER 600 mg Given 05/24/2023 5:33 PM LOTTERY OFFICE MANAGER 600 mg Lactated Ringer's (LR) bolus 1,000 mL 1,000 mL, intravenous, Once, On Thu05/22/23 at 2330, For 1 dose, 15 to 30 minutes before epidural placement. New Bag 05/22/2023 10:57 PM LOTTERY OFFICE MANAGER 1,000 mL nicotine (NICODERM CQ) 7 mg patch 24 hour 1 patch 1 patch, transdermal, Administer over 24 Hours, Daily, First dose on Thu05/24/23 at 0815, Apply a new patch every 24 hours to a clean, dry, hairless site on the upper arm or hip. Rotate site., Indications: Nicotine DependenceIndications:Nicot ine Dependence ondansetron (ZOFRAN) injection 4 mg 4 mg, intravenous, Administer over 2 Minutes, Every 6 hours PRN, nausea, vomiting, if not tolerating PO, Starting on 05/22/23 at 2130, L&D Pre-Delivery, Indications: Nausea and VomitingIndications:Nausea and Vomiting Given 05/23/2023 2:41 AM LOTTERY OFFICE MANAGER 4 mg ondansetron (ZOFRAN) injection 4 mg 4 mg, intravenous, Administer over 2 Minutes, Every 6 hours PRN, nausea, vomiting, if not tolerating PO, Starting on 05/24/23 at 0941, Start in 24 hours after Anesthesia no longer covering., Indications: Nausea and VomitingIndications:Nausea and Vomiting ondansetron ODT (ZOFRAN-ODT) disintegrating tablet 4 mg 4 mg, oral, Every 6 hours PRN, nausea, vomiting, Starting on 05/24/23 at 0941, Start in 24 hours after Anesthesia no longer covering., Indications: Nausea and VomitingIndications:Nausea and Vomiting oxytocin 30 unit/500 mL (0.06 unit/mL) in sodium chloride 0.9% (premix) solution 95-334 milliunits/min (95-334 mL/hr), 0.06 units/mL, intravenous, Continuous, Starting on 05/23/23 at 1215, Until 05/23/23 at 1533, After delivery of placenta initiate at 334 jessy-units/minutes for 30 minutes then decrease infusion to 95 jessy-units/min for 3.5 hours., Routine Rate/Dose Change 05/23/2023 12:04 PM LOTTERY OFFICE MANAGER 95 milliunits/min 95 mL/hr Rate/Dose Change 05/23/2023 11:34 AM LOTTERY OFFICE MANAGER 334 milliunits/mi n 334 mL/hr oxytocin 30 unit/500 mL (0.06 unit/mL) in sodium chloride 0.9% (premix) solution 0-20 milliunits/min (0-20 mL/hr), 0.06 units/mL, intravenous, Titrated, Starting on 05/22/23 at 2215, Until 05/23/23 at 1204, L&D Pre-Delivery, Indications: Induction of Labor, Titration instructions: Titrate, Initial Dose: 2 milliunits/min, Titrate: Up/Down, Titrate by: 2 milliunits/min, Every: 30 minutes, Goal: Less than or equal to 5 contractions per 10 minutes, Maximum dose = 20 milliunit/min Stop oxytocin infusion and notify provider for category III heart rate (FHR) tracing or prolonged FHR deceleration. If oxytocin has been stopped for less than 30 minutes and the heart rate tracing is reassuring and contraction pattern is normal, restart oxytocin titration at half of the prior dose. If oxytocin has been stopped for greater than 30 minutes and the heart rate tracing is reassuring and contraction pattern is normal, restart oxytocin titration at 2 milliunits/minute?? , RoutineIndications:Inducti on of Labor Rate/Dose Change 05/23/2023 9:44 AM LOTTERY OFFICE MANAGER 16 milliunits/min 16 mL/hr Rate/Dose Change 05/23/2023 8:10 AM LOTTERY OFFICE MANAGER 14 milliunits/min 14 mL/hr Rate/Dose Change 05/23/2023 7:40 AM LOTTERY OFFICE MANAGER 12 milliunits/min 12 mL/hr penicillin G potassium 3 million units/50 mL in dextrose (premix) 3 Million Units 3 Million Units, intravenous, Administer over 30 Minutes, Every 4 hours, First dose on Thu05/23/23 at 0245, L&D Pre-Delivery, Until delivery, Indications: Prevention of Group B Streptococcal InfectionIndications:Prevention of Group B Streptococcal Infection New Bag 05/23/2023 10:32 AM LOTTERY OFFICE MANAGER 3 Million Units New Bag 05/23/2023 6:33 AM LOTTERY OFFICE MANAGER 3 Million Units New Bag 05/23/2023 2:56 AM LOTTERY OFFICE MANAGER 3 Million Units penicillin G potassium 5 million units/50 mL in sterile water (premix) 5 Million Units 5 Million Units, intravenous, Administer over 30 Minutes, Once, On Thu05/22/23 at 2215, For 1 dose, L&D Pre-Delivery, Indications: Prevention of Group B Streptococcal InfectionIndications:Prevention of Group B Streptococcal Infection New Bag 05/22/2023 10:58 PM LOTTERY OFFICE MANAGER 5 Million Units PNV with anegwpx-ezml-EG tablet 1 tablet 1 tablet, oral, Daily, First dose on 05/23/23 at 1245, Begin when normal bowel activity resumes., Indications: Vitamin Deficiency PreventionIndications:Vitamin Deficiency Prevention Given 05/25/2023 8:08 AM LOTTERY OFFICE MANAGER 1 tablet Given 05/24/2023 9:40 AM LOTTERY OFFICE MANAGER 1 tablet polyethylene glycol (MIRALAX) packet 17 g 17 g, oral, Daily, First dose on 05/23/23 at 1245, Hold if diarrhea., Indications: constipationIndications:constipation Given 05/25/2023 8:08 AM LOTTERY OFFICE MANAGER 17 g Given 05/24/2023 9:39 AM LOTTERY OFFICE MANAGER 17 g documented in this encounter Discontinued Medications Medication Sig Discontinue Reason Start Date End Da te polyethylene glycol (MIRALAX) 17 gram/dose powder Take 17 g by mouth daily Stop Taking at Discharge 02/03/2020 05/25/2023 azelaic acid 15 % gel APPLY TO FACE TWICE A DAY Stop Taking at Discharge 08/01/2020 05/25/2023 PNV with lwvcozm-fupx-GL ( Vitamin Plus Low Iron) 27 mg iron- 1 mg tablet Take 1 tablet by mouth daily Stop Taking at Discharge 03/18/2023 05/25/2023 aspirin 81 mg chewable tablet Take 1 tablet (81 mg total) by mouth daily Stop Taking at Discharge 03/18/2023 05/25/2023 documented as of this encounter Active and Recently Administered Medications Times are shown in LOTTERY OFFICE MANAGER. Scheduled Medication Order 05/23/2023 05/24/2023 05/25/2023 acetaminophen (TYLENOL) tablet 1,000 mg 1,000 mg, oral, Every 6 hours scheduled, First dose on 05/24/23 at 0815 0815 (Due)1213 (Given - Provider: Yeimy Leon RN)1733 (Given - Provider: Yeimy Leon RN)2331 (Given - Provider: Staci Marin) 0524 (Given - Provider: Staci Marin)1200 (Due) aspirin chewable tablet 81 mg (CANCELED) 81 mg, oral, Daily, First dose on 05/23/23 at 0900 0832 (Given - Provider: Omayra Guo, KAMERON) docusate sodium (COLACE) capsule 100 mg 100 mg, oral, 2 times daily, First dose on 05/23/23 at 1245, Hold if diarrhea., Indications: constipation, Stool Softener 1223 (Hold - Provider: Omayra Guo RN - Reason: Patient/family refused) 0003 (Given - Provider: Staci Marin)0940 (Given - Provider: Yeimy Leon RN)2332 (Given - Provider: Staci Marin) 0808 (Given - Provider: Lety Baum, KAMERON) nicotine (NICODERM CQ) 7 mg patch 24 hour 1 patch 1 patch, transdermal, Administer over 24 Hours, Daily, First dose on 05/24/23 at 0815, Apply a new patch every 24 hours to a clean, dry, hairless site on the upper arm or hip. Rotate site., Indications: Nicotine Dependence 0815 (Due) 0822 (Not Given - Provider: Lety Baum RN - Reason: Patient/family refused) penicillin G potassium 3 million units/50 mL in dextrose (premix) 3 Million Units (CANCELED)(Linked Group 1) 3 Million Units, intravenous, Administer over 30 Minutes, Every 4 hours, First dose on 05/23/23 at 0245, L&D Pre-Delivery, Until delivery, Indications: Prevention of Group B Streptococcal Infection 0256 (New Bag - Provider: Zainab Garcia, KAMERON)0633 (New Bag - Provider: Zainab Garcia RN)1032 (New Bag - Provider: Omayra Guo, KAMERON) PNV with abpxsvb-igvn-II tablet 1 tablet 1 tablet, oral, Daily, First dose on 05/23/23 at 1245, Begin when normal bowel activity resumes., Indications: Vitamin Deficiency Prevention 1224 (Hold - Provider: Omayra Guo RN - Reason: Patient/family refused) 0940 (Given - Provider: Yeimy Leon, KAMERON) 0808 (Given - Provider: Lety Baum, KAMERON) polyethylene glycol (MIRALAX) packet 17 g 17 g, oral, Daily, First dose on 05/23/23 at 1245, Hold if diarrhea., Indications: constipation 1224 (Hold - Provider: Omayra Guo RN - Reason: Patient/family refused) 0939 (Given - Provider: Yeimy Leon, KAMERON) 0808 (Given - Provider: Lety Baum, KAMERON) Continuous Medication Order 05/23/2023 05/24/2023 05/25/2023 dextrose 5% and Lactated Ringer's infusion (CANCELED) 125 mL/hr, intravenous, Continuous, Starting on Thu05/22/23 at 2215, L&D Pre-Delivery 0832 (New Bag - Provider: Omayra Guo RN)1134 (Stopped - Provider: Omayra Guo RN) fentaNYL-BUPivacaine preservative free in 0.9% sodium chloride 2 mcg/mL- 0.1 % cassette (premix) (CANCELED) Continuous Rate: 10 mL/hr, Patient Bolus Dose: other, Patient Bolus Dose (mL): 6, Lockout Interval: 15 Minutes, epidural, Continuous, Starting on 05/22/23 at 2330, Until 05/23/23 at 1204, 100 mL, Indications: Pain, Stop epidural infusion after placental delivery and any indicated repair is complete., Routine 0555 (New Syringe/Cartridge - Provider: Zainab Garcia RN)1051 (New Syringe/Cartridge - Provider: Omayra Guo RN)1150 (Stopped (Dual Sign) - Provider: Omayra Guo RN) oxytocin 30 unit/500 mL (0.06 unit/mL) in sodium chloride 0.9% (premix) solution () 95-334 milliunits/min (95-334 mL/hr), 0.06 units/mL, intravenous, Continuous, Starting on 05/23/23 at 1215, Until 05/23/23 at 1533, After delivery of placenta initiate at 334 jessy-units/minutes for 30 minutes then decrease infusion to 95 jessy-units/min for 3.5 hours., Routine 1134 (Rate/Dose Change - Provider: Omayra Guo RN)1204 (Rate/Dose Change - Provider: Omayra Guo RN) oxytocin 30 unit/500 mL (0.06 unit/mL) in sodium chloride 0.9% (premix) solution (CANCELED)(Linked Group 2) 0-20 milliunits/min (0-20 mL/hr), 0.06 units/mL, intravenous, Titrated, Starting on Thu05/22/23 at 2215, Until 05/23/23 at 1204, L&D Pre-Delivery, Indications: Induction of Labor, Titration instructions: Titrate, Initial Dose: 2 milliunits/min, Titrate: Up/Down, Titrate by: 2 milliunits/min, Every: 30 minutes, Goal: Less than or equal to 5 contractions per 10 minutes, Maximum dose = 20 milliunit/min Stop oxytocin infusion and notify provider for category III heart rate (FHR) tracing or prolonged FHR deceleration. If oxytocin has been stopped for less than 30 minutes and the heart rate tracing is reassuring and contraction pattern is normal, restart oxytocin titration at half of the prior dose. If oxytocin has been stopped for greater than 30 minutes and the heart rate tracing is reassuring and contraction pattern is normal, restart oxytocin titration at 2 milliunits/minute?? , Routine 0045 (New Bag - Provider: Zainab Garcia RN - Comment: 2nd RN verified Gregorio)0130 (Rate/Dose Change - Provider: Zainab Garcia RN)0200 (Rate/Dose Change - Provider: Zainab Garcia RN)0300 (Rate/Dose Change - Provider: Zainab Garcia RN)0330 (Rate/Dose Change - Provider: Zainab Garcia RN)0400 (Rate/Dose Change - Provider: Zainab Garcia RN)0430 (Rate/Dose Change - Provider: Zainab Garcia RN)0501 (Rate/Dose Change - Provider: Zainab Garcia RN - Comment: viktoriya Merrill MD)0600 (Rate/Dose Change - Provider: Zainab Garcia RN)0630 (Rate/Dose Change - Provider: Zainab Garcia RN)0740 (Rate/Dose Change - Provider: Omayra Guo, KAMERON)0810 (Rate/Dose Change - Provider: Omayra Guo, KAMERON)0944 (Rate/Dose Change - Provider: Omayra Guo, KAMERON)1134 (Stopped - Provider: Omayra Guo, KAMERON) PRN Medication Order 05/23/2023 05/24/2023 05/25/2023 acetaminophen (TYLENOL) tablet 650 mg (CANCELED) 650 mg, oral, Every 6 hours PRN, 1st line for pain, Starting on 05/23/23 at 1204 1230 (Given - Provider: Omayra Guo RN)1808 (Given - Provider: Yeimy Leon, KAMERON) 0003 (Given - Provider: Staci Marin)0616 (Given - Provider: Staci Marin) benzocaine-menthoL (DERMOPLAST) 20-0.5 % topical spray 1 spray 1 spray, topical, As needed, other, perianal area for pain, Starting on 05/23/23 at 1204, Up to 6 times a day., Apply to affected area: perineum, Indications: Minor Skin Wound Pain 0010 (Given - Provider: Staci Marin) calcium carbonate (TUMS) chewable tablet 1,000 mg (CANCELED) 1,000 mg (400 mg of elemental calcium), oral, Every 6 hours PRN, heartburn, indigestion, Starting on 05/23/23 at 0606 0614 (Given - Provider: Zainab Garcia RN) calcium carbonate (TUMS) chewable tablet 500 mg 500 mg, oral, 4 times daily PRN, heartburn, Starting on 05/23/23 at 1204, Indications: Dyspepsia 0525 (Given - Provider: Staci Marin) cyclobenzaprine (FLEXERIL) tablet 10 mg 10 mg, oral, 3 times daily PRN, muscle spasms, Starting on 05/24/23 at 0033 0119 (Given - Provider: Staci Marin)0940 (Given - Provider: Yeimy Leon RN)1733 (Given - Provider: Yeimy Leon RN) 0525 (Given - Provider: Staci Marin) hydrocortisone (ANUSOL-HC) 2.5 % rectal cream rectal, 3 times daily PRN, hemorrhoids, Starting on 05/23/23 at 1204, Indications: Hemorrhoids ibuprofen (ADVIL,MOTRIN) tablet 600 mg 600 mg, oral, Every 6 hours PRN, other, cramping, Starting on 05/23/23 at 1204, Indications: Cramps 1229 (Given - Provider: Omayra Guo, KAMERON)1808 (Given - Provider: Yeimy Leon, KAMERON) 0003 (Given - Provider: Staci Marin)0615 (Given - Provider: Staci Marin)1214 (Given - Provider: Yeimy Leon, KAMERON)1733 (Given - Provider: Yeimy Leon, KAMERON)2331 (Given - Provider: Staci Marin) 0524 (Given - Provider: Staci Marin) ondansetron (ZOFRAN) injection 4 mg (CANCELED)(Linked Group 3) 4 mg, intravenous, Administer over 2 Minutes, Every 6 hours PRN, nausea, vomiting, if not tolerating PO, Starting on Thu05/22/23 at 2130, L&D Pre-Delivery, Indications: Nausea and Vomiting 0241 (Given - Provider: Renato Doll RN) ondansetron (ZOFRAN) injection 4 mg(Linked Group 4) 4 mg, intravenous, Administer over 2 Minutes, Every 6 hours PRN, nausea, vomiting, if not tolerating PO, Starting on 05/24/23 at 0941, Start in 24 hours after Anesthesia no longer covering., Indications: Nausea and Vomiting ondansetron ODT (ZOFRAN-ODT) disintegrating tablet 4 mg(Linked Group 4) 4 mg, oral, Every 6 hours PRN, nausea, vomiting, Starting on 05/24/23 at 0941, Start in 24 hours after Anesthesia no longer covering., Indications: Nausea and Vomiting Linked Groups Order Group 1: penicillin G potassium 5 million units/50 mL in sterile water (premix) 5 Million Units (COMPLETED) 5 Million Units, intravenous, Administer over 30 Minutes, Once, On Thu05/22/23 at 2215, For 1 dose, L&D Pre-Delivery, Indications: Prevention of Group B Streptococcal Infection Followed by penicillin G potassium 3 million units/50 mL in dextrose (premix) 3 Million Units (CANCELED)Jump to med 3 Million Units, intravenous, Administer over 30 Minutes, Every 4 hours, First dose on 05/23/23 at 0245, L&D Pre-Delivery, Until delivery, Indications: Prevention of Group B Streptococcal Infection Group 2: oxytocin 30 unit/500 mL (0.06 unit/mL) in sodium chloride 0.9% (premix) solution (CANCELED)Jump to med 0-20 milliunits/min (0-20 mL/hr), 0.06 units/mL, intravenous, Titrated, Starting on Thu05/22/23 at 2215, Until 05/23/23 at 1204, L&D Pre-Delivery, Indications: Induction of Labor, Titration instructions: Titrate, Initial Dose: 2 milliunits/min, Titrate: Up/Down, Titrate by: 2 milliunits/min, Every: 30 minutes, Goal: Less than or equal to 5 contractions per 10 minutes, Maximum dose = 20 milliunit/min Stop oxytocin infusion and notify provider for category III heart rate (FHR) tracing or prolonged FHR deceleration. If oxytocin has been stopped for less than 30 minutes and the heart rate tracing is reassuring and contraction pattern is normal, restart oxytocin titration at half of the prior dose. If oxytocin has been stopped for greater than 30 minutes and the heart rate tracing is reassuring and contraction pattern is normal, restart oxytocin titration at 2 milliunits/minute?? , Routine And Rupture of membranes Category 3 (III) heart rate tracing Prolonged or recurrent FHR decelerations Prolonged minimal variability Change in FHR baseline Uterine tachysystole requiring intervention ?? (CANCELED) Routine, Continuous, Starting on Thu05/22/23 at 2132, Until Specified, Rupture of membranes Category 3 (III) heart rate tracing Prolonged or recurrent FHR decelerations Prolonged minimal variability Change in FHR baseline Uterine tachysystole requiring intervention, L&D Pre-Delivery Group 3: ondansetron ODT (ZOFRAN-ODT) disintegrating tablet 4 mg (CANCELED) 4 mg, oral, Every 6 hours PRN, nausea, vomiting, Starting on Thu05/22/23 at 2130, L&D Pre-Delivery, Indications: Nausea and Vomiting Or ondansetron (ZOFRAN) injection 4 mg (CANCELED)Jump to med 4 mg, intravenous, Administer over 2 Minutes, Every 6 hours PRN, nausea, vomiting, if not tolerating PO, Starting on Thu05/22/23 at 2130, L&D Pre-Delivery, Indications: Nausea and Vomiting Group 4: ondansetron ODT (ZOFRAN-ODT) disintegrating tablet 4 mgJump to med 4 mg, oral, Every 6 hours PRN, nausea, vomiting, Starting on Thu05/24/23 at 0941, Start in 24 hours after Anesthesia no longer covering., Indications: Nausea and Vomiting Or ondansetron (ZOFRAN) injection 4 mgJump to med 4 mg, intravenous, Administer over 2 Minutes, Every 6 hours PRN, nausea, vomiting, if not tolerating PO, Starting on 05/24/23 at 0941, Start in 24 hours after Anesthesia no longer covering., Indications: Nausea and Vomiting documented in this encounter Orders Medications Ordered That Alex ht Not Have Been Administered Count Last Ordered Date First Ordered Date nicotine (NICODERM CQ) 7 mg patch 24 hour 1 patch 1 05/24/2023 hydrocortisone (ANUSOL-HC) 2 .5 % rectal cream 1 05/23/2023 ondansetron (ZOFRAN) injection 4 mg 1 05/23 ondansetron ODT (ZOFRAN-ODT) disintegrating tablet 4 mg 2 05/23/2023 05/22/2023 carboprost (HEMABATE) injection 250 mcg 1 0 05/22/2023 Carrier Fluids for Secondary Infusion - 0.9% Sodium Chloride 2 05/22/2023 cefOXitin (MEFOXITIN) 1,000 mg/10 mL in sterile water (premix) 1,000 mg 1 05/22/2023 Lactated Ringer's (LR) bolus 1,000 mL 12/2023 Lactated Ringer's (LR) bolus 500 mL 05/22 lidocaine PF (XYLOCAINE) 10 mg/mL (1 %) preservative free injection 100 mg 1 05/22/2023 loperamide (IMODIUM) capsule 2 mg 1 024 methylergonovine (METHERGINE ) injection 0.2 mg 1 05/22/2023 miSOPROStoL (CYTOTEC) tablet 800 mcg 1 12/2023 naloxone (NARCAN) 0.4 mg/mL injection 0.04-0.4 mg 1 05/22/2023 oxytocin (PITOCIN) injection 10 Units 1 12/2023 sodium chloride 0.9% flush 0.5-20 mL 4 12/2023 terbutaline (BRETHINE) injection 0.125 mg 1 05/22/2023 terbutaline (BRETHINE) injection 0.25 mg 1 05/22/2023 tranexamic acid (CYKLOKAPRON ) 1,000 mg/100 mL (10 mg/mL) in sodium chloride (premix) 1,000 mg 1 05/22/2023 Nursing Count Last Ordered Date First Orde red Date TELEMETRY MONITORING 1 05/23/2023 Admission Count Last Ordered Date First Orde red Date ADMIT TO L&D INPATIENT 1 05/22/2023 Transfer Count Last Ordered Date First Orde red Date TRANSFER PATIENT TO NEW UNIT 1 05/23/2023 Discharge Count Last Ordered Date First Orde red Date DISCHARGE PATIENT 1 05/25/2023 CORE MEASURES Count Last Ordered Date First Ord ered Date REASON FOR NO VTE PROPHYLAXIS AT ADMISSION 1 05/23/2023 REASON FOR NO VTE PROPHYLAXI S - HOSPITAL ADMISSION - MEDICATIONS 1 05/22/2023 documented in this encounter Care Teams Computer Trainer Relationship Specialty Start Date End Date No, Physician PCP - General 11/01/16 documented as of this encounter
--- OUTSIDE RECORDS SUMMARY | 2024-04-02 11:52 | XMS_ITS | Patient Health Summary ---
Author Organization [facility] Address [address] [place] [address] Care Team Providers Care Carburetor Rebuilder Name Role Phone Yeimy Hoskins MD Primary Care Provider Unavail able Note from [facility],non-owned Affiliates and Associated Physician Practices is amultiple site organization consisting of ambulatory clinics and hospital sitesin [place], [place], [place] and [place]. This disclosure is being madepursuant to the Care Everywhere program and may not contain all information available regarding this patient. Last updated 18.[facility] Allergies No known active allergies Social History [...] Mass Index 30.9 08/19/2013 2:29 PM CDT Procedures * XR SHOULDER LEFT 2VW OR MORE(Performed 08/19/2013) Performed for Trauma * CT CHEST ABDOMEN PELVIS W CONT(Performed 08/19/2013) Performed for Trauma * DRUG SCREEN TOX LIMITED BLD PNL 3 INHOUSE(Performed 08/19/2013) * LIPASE BLOOD(Performed 08/19/2013) * PT PTT PANEL(Performed 08/19/2013) * COMPREHENSIVE METABOLIC PANEL(Performed 08/19/2013) * CBC W AUTO DIFFERENTIAL(Performed 08/19/2013) * CT CERVICAL SPINE WO CONTRAST(Performed 08/19/2013) Performed for Trauma * CT HEAD WO CONTRAST(Performed 08/19/2013) Performed for Trauma * HCG URINE QUALITATIVE - POINT OF CARE(Performed 08/19/2013) * URINE DRUG SCREEN IMMUNOASSAY(Performed 08/19/2013) * GROSS + MICRO EXAM(Performed 06/08/2001) Results * XR SHOULDER 2+ VW LEFT [...] - 30.0 ug/mL 08/19/2013 3:54 PM CDT [facility] Ethanol <3 <10 mg/dL 08/19/2013 3:54 PM CDT [facility] Salicylate 2.6 <20.0 mg/dL 08/19/2013 3:54 PM CDT [facility] Ethanol Calculated <0.100 gm/dL 08/19/2013 3:54 PM CDT [facility] Comment:Not Calculated Blood BLOOD SPECIMEN / Unknown 08/19/2013 3:28 PM CDT 08/19/2013 3:33 PM CDT Narrative [facility] - 08/19/2013 3:54 PM CDT [facility] ACETAMINOPHEN COMMENT Contact the [place] [facility] at [facility] for advice in interpreting acetaminophen levels or [...] - CHEMISTRY OR DERABLES Performing Organization Address [facility] de Phone Number [facility] [id number] [place] [id number] * PT PTT PANEL (08/19/2013 3:28 PM CDT) PT 10.7 9.4 - 11.2 sec 08/19/2013 3:47 PM CDT [facility] INR 1.01 0.9 - 1.1 08/19/2013 3:47 PM CDT [facility] PTT 24.8 24.0 - 32.0 sec 08/19/2013 3:47 PM CDT [facility] Blood BLOOD SPECIMEN / Unknown 08/19/2013 3:28 PM CDT 08/19/2013 3:33 PM CDT Narrative [facility] - 08/19/2013 3:47 PM CDT Conventional Anticoagulant Therapy INR Reference Ranges: ??2.0-3.0 Intensive Anticoagulant Therapy INR Reference Ranges: ? 2.5-3.5 Osorio Fuentes MD LAB - COAGULATION ORDERABLES Performing Organization Address [facility] de Phone Number [facility] [address] [place] [address] * (ABNORMAL) CBC W AUTO DIFFERENTIAL (08/19/2013 3:28 PM CDT) WBC 6.5 4.5 - 11.0 x10^9/L 08/19/2013 3:39 PM CDT [facility] RBC 4.94 4.10 - 5.10 x10^12/L [...] - 9.5 fl 08/19/2013 3:39 PM CDT [facility] Neutrophils % 59.1 31.0 - 78.0 [...] Absolute 0.02 x10^9/L 08/19/2013 3:39 PM CDT [facility] Basophils Absolute 0.02 x10^9/L 08/19/2013 3:39 PM CDT [facility] Immature Granulocytes Absolute 0.01 x10^9/L 08/19/2013 3:39 PM CDT [facility] Blood BLOOD SPECIMEN / Unknown 08/19/2013 3:28 PM CDT 08/19/2013 3:33 PM CDT Osorio Fuentes MD LAB - HEMATOLOGY O RDERABLES [facility] [address] [place] [address] * (ABNORMAL) COMPREHENSIVE METABOLIC PANEL (08/19/2013 3:28 PM CDT) Glucose 79 74 - 106 mg/dL 08/19/2013 3:55 PM CDT [facility] Sodium 141 136 - 145 mmol/L 08/19/2013 3:55 PM CDT [facility] Potassium 3.5 3.5 - 5.1 mmol/L 08/19/2013 3:55 PM CDT [facility] Chloride 109(H) 98 - 107 mmol/L 08/19/2013 3:55 PM CDT [facility] CO2 22 22 - 31 mmol/L 08/19/2013 3:55 PM CDT [facility] Calcium 9.6 8.5 - 10.1 mg/dL 08/19/2013 3:55 PM CDT [facility] Anion Gap 10 5 - 15 mmol/L 08/19/2013 3:55 PM CDT [facility] BUN 9 7 - 21 mg/dL 08/19/2013 3:55 PM CDT [facility] Creatinine 0.52 0.50 - 1.30 mg/dL 08/19/2013 3:55 PM CDT [facility] eGFR by MDRD >60 mL/min/1.7 3m2 08/19/2013 3:55 PM CDT [facility] Comment:eGFR calculations ar e not performed for children under 18 years old. eGFR by MDRD >60 mL/min/1.7 3m2 08/19/2013 3:55 PM CDT [facility] Comment:eGFR calculations ar e not performed for children under 18 years old. Alkaline Phosphatase 74 38 - 126 U/L 08/19/2013 3:55 PM CDT [facility] ALT 20 12 - 78 U/L 08/19/2013 3:55 PM CDT [facility] AST 17 5 - 40 U/L 08/19/2013 3:55 PM CDT [facility] Protein Total 8.1 6.4 - 8.2 gm/dL 08/19/2013 3:55 PM CDT [facility] Albumin 4.3 3.4 - 5.0 gm/dL 08/19/2013 3:55 PM CDT [facility] Bilirubin Total 0.3 0.2 - 1.0 mg/dL 08/19/2013 3:55 PM CDT [facility] Blood BLOOD SPECIMEN / Unknown 08/19/2013 3:28 PM CDT 08/19/2013 3:33 PM CDT Osorio Fuentes MD LAB - CHEMISTRY OR DERABLES Performing Organization Address [facility] de Phone Number [facility] [address] [place] [address] * LIPASE BLOOD (08/19/2013 3:28 PM CDT) Lipase 94 73 - 393 U/L 08/19/2013 3:55 PM CDT [facility] Blood BLOOD SPECIMEN / Unknown 08/19/2013 3:28 PM CDT 08/19/2013 3:33 PM CDT Osorio Fuentes MD LAB - CHEMISTRY OR DERABLES Performing Organization Address [facility] de Phone Number [facility] [address] [place] [address] * CT CERVICAL SPINE NON CONTRAST (08/19/2013 [...] OF CAR E ORDERABLES [facility] [address] [place] [address] * (ABNORMAL) DRUG SCREEN TOX URINE PANEL (08/19/2013 2:59 PM CDT) Pathologist [facility] Amphetamines Screen Urine Not Detected Not Detected 08/19/2013 3:23 PM CDT [facility] Barbiturates Screen Urine Not Detected Not Detected 08/19/2013 3:23 PM CDT [facility] Benzodiazepines Screen Urine Not Detected Not Detected 08/19/2013 3:23 PM CDT [facility] Cannabinoids Screen Urine Detected(A) Not Detected 08/19/2013 3:23 PM CDT [facility] Cocaine Screen Urine Not Detected Not Detected 08/19/2013 3:23 PM CDT [facility] Methadone Screen Urine Not Detected Not Detected 08/19/2013 3:23 PM CDT [facility] Opiate Screen Urine Not Detected Not Detected 08/19/2013 3:23 PM CDT [facility] Phencyclidine Screen Urine Not Detected Not Detected 08/19/2013 3:23 PM CDT [facility] Urine URINE / Unknown 08/19/2013 2 :59 PM CDT 08/19/2013 3:07 PM CDT Narrative [facility] - 08/19/2013 3:23 PM CDT This [...] MD LAB - URINE CHEMIS TRY ORDERABLES [facility] [address] [place] [address] * GROSS + MICRO EXAM (06/08/2001 1:30 PM HELPDESK SPECIALIST) Result CASE NUMBER [id number] [facility] Comment: ORDERING PHYSICIAN ??SOY [...] and interpreted by the attending (teaching) pathologist. Md Urologist ? Alyson Tompkins RESIDENT IN PATHOLOG Shirlene. Alejandro Collins PATHOLOGIST ?Tammy Lemos M.D. ELECTRONICALLY MELIZATAMMY NAVARRETE MISCELLANEOUS SAMPLES / Unknown 06/08/2001 1:30 PM HELPDESK SPECIALIST 06/08/2001 3:39 PM HELPDESK SPECIALIST Historical Provider LAB - PATHOLOGY/C YTOLOGY ORDERABLES [facility] Care Teams Carburetor Rebuilder Relationship Specialty Start Date End Date Yeimy Hoskins MD PCP - General 11/25/17
--- OUTSIDE RECORDS SUMMARY | 2024-04-02 11:52 | XMS_ITS | Clinical Summary ---
Author Organization [facility] Address [address] [place] [phone] Phone Care Team Providers Care Dock Clerk Name Role Phone Provider, None Primary Care Provider Unavailabl e Allergies No known active allergies Medications No known medications Immunizations Immunization Administration Dates Next Due Influenza, Injectable, Quadrivalent 03/06/2020 Social History Tobacco Use Types Packs/Day Years Used Date Smoking Tobacco: Never Assessed Smokeless Tobacco: Current Alcohol Use Standard Drinks/Week Comments Yes 0 (1 standard drink = 0.6 oz pur e alcohol) Comments No Sex and Gender Information Value Date Recorded Sex Assigned at Not on file Legal Sex Female 8:18 AM ANIMAL WARDEN Gender Identity Not on file Sexual Orientation [...] Mass Index 30.62 10/12/2022 9:07 PM CDT Plan of Treatment Health Maintenance Due Date Last Done Comments Hepatitis C Virus (HCV) Screening 1996 TdaP Immunization 1996 Hepatitis B Immunization (1 of 3 - 19+ 3-dose series) 07/09/2015 Pap Smear 2017 Influenza Immunization (#1) 2023 03/06/2020 SARS-COV-2 Immunization (2023- season) 2023 04/18/2021, 03/21/2021 Respiratory Syncytial Virus (RSV) Immunization (Adult) (1 - 1-dose 75+ series) 07/09/2071 Meningococcal Immunization (ACWY) Aged Out No longer eligible b ased on patient's age to complete this topic Pneumococcal Immunization Combined Aged Out No longer eligible b ased on patient's age to complete this topic Rotavirus Immunization Aged Out No lo nger eligible based on patient's age to complete this topic Insurance MEDICAID [employer] * Guarantor: [facility] Account Type Relation to Patient Date of Phone Billing Address Institutional Other [address] [place] [address] Care Teams Dock Clerk Relationship Specialty Start Date End Date Provider, None [place] PCP - General 05/06/21
--- OUTSIDE RECORDS SUMMARY | 2024-04-02 11:52 | XMS_ITS | Encounter Summary ---
Author Organization [facility] Healthcare Address [address] [place] [address] Care Team Providers Care Director Of Assessing Name Role Phone No, Physician Primary Care Provider [phone] Encounter Details Date Type Department Care Team (Late st Contact Info) Description 06/09/2023 Patient Self-Triage [facility] HealthCare/ Physicians [address] [place] [address] Mychart, Generic Provider [address] [place], [place] [id number] Social History Tobacco Use Types Packs/Day Years Used Date Smoking Tobacco: Former Vaping Smokeless Tobacco: Current Comments:pt vapes Alcohol Use Standard Drinks/Week Comments No 0 (1 standard drink = 0.6 oz pur e alcohol) [facility] Utilities Answer Date Recorded In the past 12 months has [employer], gas, oil, or water company threatened to shut off services in your [...] often do you attend chur ch or synagogue services? More than 4 times per year 05/24/2023 Do you belong to any clubs o r organizations such as congregation groups, unions, fraternal or athletic groups, or [...] staff should administer the PHQ-9) 0 05/22/2023 [facility] - Occupational Stress Questionnaire Answer Date [...] place to sleep or slept in a [place] health care facility (including now)? No 05/24/2023 [place] Depression Scale Answer Date Recorded [place] Depression Scale Total 1 02/24/2023 The thought [...] on file Legal Sex Female 8:40 PM ARTILLERY SPECIALIST Gender Identity Female 12/02/2022 6:55 PM CDT Sexual Orientation Straight 12/02/2022 6: 55 PM CDT documented as of this encounter Plan of Treatment Not on file documented as of this encounter Visit Diagnoses Not on filedocumented in this encounter Care Teams Director Of Assessing Relationship Specialty Start Date End Date No, Physician PCP - General 11/01/16 documented as of this encounter
--- OUTSIDE RECORDS SUMMARY | 2024-04-02 11:52 | XMS_ITS | Referral Summary ---
Author Organization [facility] Address [address] [place] [address] Care Team Providers Care Powerhouse Engineer Name Role Phone No, Physician Primary Care Provider [phone] Allergies No known active allergies Medications PNV with [id number] 27 mg iron- 1 mg tabletIndicatio ns:Vitamin [...] # Disposition: Follow up task [facility] scheduling pool. Desires dc home today. 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 Cleared by cardiology for this . Desires TOLAC. [facility] calculator 63%. S/p counseling. HROB: Maternal anemia [...] (which is an independent risk factor for IA in and per literature review) - Previously [...] education: completed in all 3 trimesters [x] Door Clamp Operator: TBD [] Car seat discussed [] PP [...] (10/04/2020): Added automatically from request for surgery [id number] Viral syndrome 08/05/2018 04/04/2020 Fever 08/05/2018 04/04/2020 [...] 03/27/2023, 1,03/19/2017,10/16 Varicella 05/25/2023, 1(Deferred: Patient Refused),01[birth year]08[birth year]2009,1995 Social History Tobacco Use Types Packs/Day Years Used Date Smoking Tobacco: Former Vaping Smokeless Tobacco: Current Tobacco Cessation:Ready to Q uit: Not Asked; Counseling Given: Not Answered Comments:pt vapes Alcohol Use Standard Drinks/Week Comments No 0 (1 standard drink = 0.6 oz pur e alcohol) [facility] e-channelities Answer Date Recorded In the past 12 months has e electric, gas, oil, or water company threatened to [...] often do you attend chur ch or orthodoxy services? More than 4 times per year 05/24/2023 Do you belong to any clubs o r organizations such as latter day groups, unions, fraternal or athletic groups, or [...] staff should administer the PHQ-9) 0 05/22/2023 [facility] - Occupational Stress Questionnaire Answer Date [...] place to sleep or slept in a retirement (including now)? No 05/24/2023 [place] Depression Scale Answer Date Recorded [place] Depression Scale Total 1 02/24/2023 The thought [...] on file Legal Sex Female 8:40 PM JAVA ORACLE DEVELOPER Gender Identity Female 12/02/2022 6:55 PM CDT Sexual Orientation Straight 12/02/2022 6: 55 PM CDT Last Filed Vital Signs Vital Sign Reading Time Taken Comments Blood Pressure 99/55 05/25/2023 7:20 AM JAVA ORACLE DEVELOPER Pulse 60 05/25/2023 7:20 AM JAVA ORACLE DEVELOPER Temperature 36.6 ??C (97.9 ??F) 05/25/2023 7:20 AM CS T Respiratory Rate 18 05/25/2023 7:20 AM JAVA ORACLE DEVELOPER Oxygen Saturation 95% 05/25/2023 7:20 AM JAVA ORACLE DEVELOPER Inhaled Oxygen Concentration - - Weight 96.3 kg (212 lb 4.9 oz) 05/22/2023 9:40 P M JAVA ORACLE DEVELOPER Height 167.6 cm (5' 6 ) 06/11/2023 8:10 AM JAVA ORACLE DEVELOPER Body Mass Index 34.27 05/22/2023 9:40 PM JAVA ORACLE DEVELOPER Plan of Treatment Not on file Procedures Procedure Name Priority Date/Time Associated Diagnosis [...] GENERAL ORDERABLES Final Result EUNICE BAEZ [facility] [place] [address] * Pap with reflex to High Risk HPV and Genotyping (Cytology Component) (12/02/2022 1:27 PM CDT) Thin prep (Pap test) 12/02/2022 1:27 PM CDT 12/02/2022 5:37 PM CDT Narrative PATHOLOGY [facility] - 12/04/2022 2:41 PM CDT EPIC results best viewed via link to PDF [facility] Lakisha Crook [facility] [place] [address] Note to Patients: This report may contain [...] Gender: ??F : ??1995 (Age: 27) Address: ??[address] [place] [address] ??[id number] [facility] #: ??[id number] Service: ??LOAN CLOSER Location: ?? Patient Type: ??[facility] SPECIMEN Taken: ??12/02/2022 Received: ??12/02/2022 Accessioned: [...] organisms morphologically consistent with ericka species ? /12/04/2022 14:41 Sheri Mcginnis MS, CT (ASCP) Report [...] clinical information and biopsy results as indicated. [facility] Clinical Laboratory Improvement Amendments (CLIA) mandate that cytologic and histologic results be correlated for laboratory automotive quality engineer & improvement standards. ??FOR ALL HIGH-GRADE CASES [...] determined by the Surgical Pathology Department at [facility] as part of an ongoing quality compliance manager program and in compliance with federally mandated [...] determined by the Surgical Pathology Department of [facility]. ??It has not been cleared or approved by the U. S. Food and Drug Administration. Shruthi Keys MD LAB CYTOLOGY ORDERA CLAUDIA Final Result PATHOLOGY [facility] 3rd Floor [place], [place] [phone] from Last 3 Months or Most Recently Relevant to Health Maintenance Insurance * Guarantor: Brenda Shi Account Type Relation to Patient Date of Phone Billing Address Personal/Family Self [address] [place] [address] [facility] [place] [address] * Guarantor: Brenda Shi Account Type Relation to Patient Date of Phone Billing Address Personal/Family Self [address] [place] [address] [facility] Advance Directives For more information, please contact: [phone] * Full Code (Latest Code Status on [...] in case of cardiopulmonary arrest Care Teams Powerhouse Engineer Relationship Specialty Start Date End Date No, Physician PCP - General 11/01/16
--- OUTSIDE RECORDS SUMMARY | 2024-04-02 11:52 | XMS_ITS | Encounter Summary ---
Author Organization [facility] Healthcare Address [address] [place] [address] Care Team Providers Care Patient Assessment Coordinator Name Role Phone No, Physician Primary Care Provider [phone] Reason for Visit * Reason Comments Routine Visit Encounter Details Date Type Department Care Team (Late st Contact Info) Description 05/18/2023 12:30 PM ELECTRICIAN OUTSIDE Office Visit Obstetrics and Gynecology Clinic [address] [facility] 3rd Floor [address] [place] [address] [place] [address] [place] [address] [address] [place] [address] Encounter for supervision of other normal in third trimester (Primary Dx); HROB: History of non-ST elevation myocardial infarction (NSTEMI); Encounter for supervision of normal in first trimester, unspecified ; HROB: Maternal varicella, non-immune; HROB: Hx of preeclampsia, prior , currently ; History of delivery Social History Tobacco Use Types Packs/Day Years [...] money to get more. Never true 05/18/2023 [place] Depression Scale Answer Date Recorded [place] Depression Scale Total 1 02/24/2023 The thought of harming myself has occurred to me . Never 02/24/2023 Personal Safety Answer Date Recorded Getting School Help Needed Not on file 03/23 Comments Yes Sex and Gender Information Value Date Recorded Sex Assigned at Not on file Legal Sex Female 8:40 PM ELECTRICIAN OUTSIDE Gender Identity Female 12/02/2022 6:55 PM CDT Sexual Orientation Straight 12/02/2022 6: 55 PM CDT documented as of this encounter Last Filed Vital Signs Vital Sign Reading Time Taken Comments Blood Pressure 120/68 05/18/2023 12:53 PM ELECTRICIAN OUTSIDE Pulse 82 05/18/2023 12:53 PM ELECTRICIAN OUTSIDE Temperature - - Respiratory Rate - - Oxygen Saturation 99% 05/18/2023 12:53 PM ELECTRICIAN OUTSIDE Inhaled Oxygen Concentration - - Weight 96.3 kg (212 lb 4.8 oz) 05/18/2023 12:53 PM ELECTRICIAN OUTSIDE Height - - Body Mass Index 34.27 04/17/2023 2:13 PM ELECTRICIAN OUTSIDE documented in this encounter Patient Instructions * Patient Instructions* Shruthi Keys MD - 05/18/2023 12:30 PM ELECTRICIAN OUTSIDE Contact us Office hours: Thursday-Thursday 8:30 AM-4:30 PM Phone number: [phone] Daytime: Call us if you have questions or if you are getting worse after your appointment. If you need to cancel or change your appointment, call during normal clinic hours. We appreciate at least 24 hours notice for cancellations. Call during daytime hours to change your appointment, for paperwork or othernon- urgent needs. Do not call the clinic to request refills, call your pharmacy and they will contact the clinic. After hours emergencies: If the clinic is not open and you are having a medical problem, you can call us at [phone]. Please wait until the clinic is open for non-urgent needs as this emergency line cannot help with appointments, paperwork or prescriptions. If you have an emergency and cannot wait, please call 911 or go to the [facility] Emergency room. If you are having a problem with your or are in labor you can go to the [facility] (check in near elevator on first floor) [address] [facility], [address]th [place] [address]. TRICIAN OUTSIDE documented in this encounter Progress Notes * Shruthi Keys MD - 05/18/2023 12:30 PM CST OB RETURN VISIT 05/18/2023 Subjective: Brenda Shi is a 27 y.o. at 38w3d who presents for her return OB visit. Hx preE with NSTEMI, family h/o CHD, hxCSx1 (NRFS), varicella NI, tobacco use Feels well today. Excited for baby! Denies chest pain, SOB, LOZANO, VC, RUQ pain. movement: Yes Vaginal Bleeding: No LOF: No Contractions/cramping: none Objective: Vitals: 05/18/23 1253 BP: 120/68 BP Location: Left arm Patient Position: Sitting Pulse: 82 SpO2: 99% Weight: 96.3 kg (212 lb 4.8 oz) FHR: Present and within normal limits Gen: No acute distress. Abdomen: Soft, nontender, gravid. Fundal Height: Deferred Extremities: Warm, well perfused. No lower extremity edema/erythema/tenderness Urine: Lab Results Component Value Date GLUCOSEUR Negative 05/18/2023 KETONESU Negative 05/18/2023 PROTUR 6.3 12/02/2022 Assessment/Plan: 27 y.o. at 38w3d . Problem List HROB: Encounter for supervision of normal in first trimester Overview *Ludmila quintanilla del* 1st Trimester: [x] Dating [...] education: completed in all 3 trimesters [x] Employment Recruiter: TBD [] Car seat discussed [] PP depression counseling HROB: Maternal varicella, non-immune Overview - Varicella NI Plan: - For varivax HROB: Hx of preeclampsia, prior , currently Overview - H/o preeclampsia in her prior complicated [...] to minimize preeclampsia risk, patient agreeable HROB: History of non-ST elevation myocardial infarction (NSTEMI) Overview - NSTEMI in last in setting of preeclampsia (which is an independent risk factor for AR in and per literature review) - Previously [...] post- recommendations: Post- BP monitoring Follow-up: Post History of delivery Overview CS in G1 for NRFS (FGR) remote from delivery (3 cm). Cleared by cardiology for this . Desires TOLAC. [facility] calculator 63%. S/p counseling. RTC in for 2 wk and 6 wk visits. Seen and discussed with Dr. Sunshine. Shruthi Keys MD PGY-2, Obstetrics & Gynecology 05/18/23 Cosigned by Lakisha Sunshine MD at 05/20/2023 5:07 PM ELECTRICIAN OUTSIDE TRICIAN OUTSIDE TRICIAN OUTSIDE Associated attestation - Lakisha Sunshine MD - 05/20/2023 5:07 PM ELECTRICIAN OUTSIDE I have seen and examined the patient. I agree with the findings and plan of care as documented in the resident/fellow's note. Lakisha Sunshine MD documented in this encounter Plan of Treatment Not on file documented as of this encounter Procedures Procedure Name Priority Date/Time Associated Diagnosis Comments POCT URINALYSIS (CLINITEK) Routine 05/18/2023 1:03 PM ELECTRICIAN OUTSIDE documented in this encounter Results * POCT urinalysis (Clinitek) (05/18/2023 1:03 PM ELECTRICIAN OUTSIDE) Color, ur, POC Yellow Yellow [facility] Clarity, UA, POC Clear Clear [facility] Glucose, ur, POC Negative Negative [facility] Bilirubin, ur, POC Negative Negative [facility] Ketones, ur, POC Negative Negative [facility] Specific gravity, ur, POC 1.020 1.010 - 1.025 [facility] Blood, ur, POC Negative Negative [facility] pH, ur, POC 7.5 [facility] Comment: Interpretive Data Urine pH is affected by diet, medications, systemic acid-base disturbances, and renal tubular function. pH may affect urinary stone formation. For example, urine pH below 6.0 may help reduce the tendency for calcium phosphate stones and pH greater than 6.0 may reduce the tendency for uric acid stone formation. Source: [facility]. Last Revised Date: 04-23-2017 Protein, ur, POC Negative Negative [facility] Urobilinogen, ur, POC 0.2 mg/dL mg/dL [facility] Nitrites, [facility], POC Negative Negative [facility] Leukocyte esterase, ur, POC Negative Negative [facility] Urine 05/18/2023 1:03 PM ELECTRICIAN OUTSIDE 05/18/2023 1:03 PM ELECTRICIAN OUTSIDE us Shruthi Keys MD LAB POCT ORDERABLES - DEVICE Final Result [facility] [place] [address] documented in this encounter Visit Diagnoses Diagnosis Encounter for supervision of other normal in third trimester- Primary HROB: History of non-ST elevation myocardial infarction (NSTEMI) Encounter for supervision of normal in first trimester, unspecified HROB: Maternal varicella, non-immune Supervision of other normal HROB: Hx of preeclampsia, prior , currently with other poor obstetric history History of delivery documented in this encounter Care Teams Patient Assessment Coordinator Relationship Specialty Start Date End Date No, Physician PCP - General 11/01/16 documented as of this encounter
--- OUTSIDE RECORDS SUMMARY | 2024-04-02 11:53 | XMS_ITS | Encounter Summary ---
Author Organization [facility] Healthcare Address [address] [place] [address] Care Team Providers Care Podopediatrician Name Role Phone No, Physician Primary Care Provider [phone] Reason for Referral * Cardiology (Routine) - Closed Specialty Diagnoses / Procedures Referred By Contac t Referred To Contact Diagnoses History of non-ST elevation myocardial infarction (NSTEMI) Procedures Transthoracic Echo (TTE) Complete W Doppler/CF Conrad Simmons MD [address] [facility] [address] [place] [address] Phone: tel: fax: [facility] (All Locations) Referral ID Status Reason Start Date Expiration Date Visits Re quested Visits Authorized [id number] Closed 03/17/2023 03/16/2024 1 1 ER PULP WASHER Reason for Visit * Cardiology (Routine) - Closed Specialty Diagnoses / Procedures Referred By Riaz harvey Referred To Contact Diagnoses History of non-ST elevation myocardial infarction (NSTEMI) Procedures Transthoracic Echo (TTE) Complete W Doppler/CF Conrad Simmons MD [address] [facility] [address] [place] [address] Phone: tel: fax: [facility] (All Locations) Referral ID Status Reason Start Date Expiration Date Visits Re quested Visits Authorized [id number] Closed 03/17/2023 03/16/2024 1 1 Encounter Details Date Type Department Care Team (Latest Contact Info) Description 03/25/2023 2:32 PM FILTER PULP WASHER - 03/25/2023 11:59 PM FILTER PULP WASHER Hospital Encounter [facility] Cardiac Diagnostic Lab [address] [facility] 8th [place] [address] History of non-ST elevation myocardial infarction (NSTEMI) Discharge Disposition: Discharge to home or self [...] you got the money to buy more. Often true 01/03/20 23 Within the past 12 months, t he food you bought just didn't last and you didn't have money to get more. Often true 01/02/2023 [place] Depression Scale Answer Date Recorded [place] Depression Scale Total 1 02/24/2023 The thought of harming myself has occurred to me . Never 02/24/2023 Personal Safety Answer Date Recorded Getting School Help Needed Not on file 03/23 Comments Yes Sex and Gender Information Value Date Recorded Sex Assigned at Not on file Legal Sex Female 8:40 PM FILTER PULP WASHER Gender Identity Female 12/02/2022 6:55 PM CDT Sexual Orientation Straight 12/02/2022 6: 55 PM CDT documented as of this encounter Medications at Time of Discharge aspirin 81 mg chewable tablet Take 1 tablet (81 mg total) by mouth daily 30 tablet 11 03/18/2023 05/25/2023 azelaic acid 15 % gel APPLY TO FACE TWICE A DAY 08/01/2020 05/25/2023 PNV with [id number] ( Vitamin Plus Low Iron) 27 mg iron- 1 mg tablet Take 1 tablet by mouth daily 30 tablet 11 03/18/2023 05/25/2023 polyethylene glycol (MIRALAX) 17 gram/dose powder Take 17 g by mouth daily 510 g 02/03/2020 05/25/2023 documented as of this encounter Discharge Disposition Disposition Code Departure Means Destination Discharge to home or self care documented in this encounter Plan of Treatment Not on file documented as of this encounter Procedures Procedure Name Priority Date/Time Associated Diagnosis Comments TRANSTHORACIC ECHO (TTE) COMPLETE W DOPPLER/CF WO CONTRAST Routine 03/25/2023 4:16 PM FILTER PULP WASHER History of non-ST elevation myocardial infarction (NSTEMI) documented in this encounter Results * TRANSTHORACIC ECHO (TTE) COMPLETE W DOPPLER/CF WO CONTRAST (03/25/2023 4:16 PM FILTER PULP WASHER) LV EF 54 % CARDIOREPORT Anatomical Region Laterality Modality Ultrasound 03/25/2023 3:00 PM FILTER PULP WASHER Narrative 03/25/2023 5:08 PM FILTER PULP WASHER Patient name: Brenda Shi Date of test: 03/25/2023 Type of test: TTE w/Doppler [facility] #: 0 Date of : 1995 (F) Shotgun Shell Reprinting Unit Operator: Liana Andrews RDCS Referring Physician: CONRAD SIMMONS MD Contrast Agent: Contrast Administered by: Supervised/Interpreted by: Tavares Valenzuela MD Diagnosis: SOB Location: [facility] Reason for test: hx of non=st elevation MS MV Structure: Normal, ?MV Motion: Normal, ?? Mitral Annulus: Normal AV Structure: tricuspid and is Normal, ?? AV Motion: Normal Aotic root: Normal, ?TM: Normal, ?? PV: Normal Valvular Vegetations: none seen, ?Mass/Thrombi: none seen RA: Normal Measurements: ?M-Mode ?Normal ? Aotic Root: ? <3.8 ? LA: ? <3.8 ? RV: ? <2.8 ? LV(ED): ? <5.7 ? LV(ES): ? Variable ?2D Linear Normal ? Aotic Root: 2.9 cm ?<3.6 ? Ao Indexed: 1.4 cm/M2 <2.0 ? LA: ? <3.8 ? RV: ? 3.9 cm ?<4.2 ? LV(ED): ? 4.9 cm ?<5.3 ? LV(ES): ? 3.4 cm ?<3.5 ?2D Vol. ?? Normal ?Indexed ?? Indexed Normal RA: ? 16.0 ml ? 8.0 ml/M2 ? 9-33 ? LA: ? 41.0 ml ? 20.4 ml/M2 ?16-34 ? RV: ? <11.6 ? LV(ED): ? 134.0 ml ??46-106 ?66.7 ml/M2 ?<62 ? LV(ES): ? 61.0 ml ?? 14-42 ? 30.4 ml/M2 ?<25 ?3D Vol. ? Indexed Normal LV(ED): ?<62 ? LV(ES): ?<24 ? LV EF: 54 % ?? (Normal: >=54%) ?? LV Septum: 0.7 cm ?(Normal: <0.9 cm) Wall Motion Scoring (1=Normal 2=Hypo 3=Akinetic 4=Dyskin./Aneurysm 0=Not visualized) Parasternal Long [place]:MAS=1 BAS=1 MIL=1 DAMIAN=1 Parasternal Short [place]:MAS=1 MIS=1 MS=1 MIL=1 MAL=1 MA=1 Apical 4 Chambers:=1 MIS=1 BIS=1 BAL=1 MAL=1 AL=1 AC=1 Apical 2 Chambers:AI=1 MS=1 BI=1 BA=1 MA=1 AA=1 AC=1 LV Global Longitudinal Strain: -20% ??(Normal <-17%) RV Global Longitudinal Strain: -19% ??(Normal <-17%) LV Function: Normal LV Ejection Fraction, ??(EF=54-74%) RV Function: Normal Septal Motion: Pericardial Effusion: none seen Atrial Septum: DOPPLER/COLOR FLOW DOPPLER RESULTS: Diastolic Function: Normal Tricuspid Valve: mild TV regurgitation Pulmonic Valve: Mild TN AV Regurgitation: No AR seen AV Stenosis: AV Area: ??cm2 AV Pressure Gradient (mmHg): Mean: 0, Peak:0 MV Regurgitation: Mild MR MV Stenosis: MV Area: ??cm2 MV Pressure Gradient (mmHg): Mean: 0 MV ERO: ??cm Regurg. Vol.: ??ml/beat Regurg. Frac.: ??% PA Pressure: ??mmHg DOPPLER/COLOR FOLOW DOPPLER COMMENTS: No AR seen, Mild MR, mild TV regurgitation, Mild TN. Diastolic function: Normal SUMMARY: Normal LV systolic function. Likely normal LV wall thickness.Normal global LV Myocardial longitudinal function and LV strain pattern. ??Normal RV size and function. Normal LA/RA size. Mild thickened MV with mild MR. No significant abnormalty seen in other valves. Normal aortic root in current limited views. Trace pericardial effusion. ?? Confirmed on ??03/25/2023 - 17:08:37 by Tavares Valenzuela MD By signing this report, the attending records management technician certifies that he or she has personally supervised and interpreted the echocardiogram and has reviewed and or edited and agrees with the written comments contained within the report. Procedure Note Tavares Valenzuela MD PhD - 03/25/2023 Patient name: Brenda Shi Date of test: 03/25/2023 Type of test: TTE w/Doppler [facility] #: 0 Date of : 1995 (F) Shotgun Shell Reprinting Unit Operator: Liana Andrews [facility] Referring Physician: CONRAD SIMMONS MD Contrast Agent: Contrast Administered by: Supervised/Interpreted by: Tavares Valenzuela MD Diagnosis: SOB Location: [facility] Reason for test: hx of non=st elevation MS MV Structure: Normal, MV Motion: Normal, Mitral Annulus: Normal AV Structure: tricuspid and is Normal, AV Motion: Normal Aotic root: Normal, TM: Normal, PV: Normal Valvular Vegetations: none seen, Mass/Thrombi: none seen RA: Normal Measurements: M-Mode Normal Aotic Root: <3.8 LA: <3.8 RV: <2.8 LV(ED): <5.7 LV(ES): Variable 2D Linear Normal Aotic Root: 2.9 cm <3.6 Ao Indexed: 1.4 cm/M2 <2.0 LA: <3.8 RV: 3.9 cm <4.2 LV(ED): 4.9 cm <5.3 LV(ES): 3.4 cm <3.5 2D Vol. Normal Indexed Indexed Normal RA: 16.0 ml 8.0 ml/M2 9-33 LA: 41.0 ml 20.4 ml/M2 16-34 RV: <11.6 LV(ED): 134.0 ml 46-106 66.7 ml/M2 <62 LV(ES): 61.0 ml 14-42 30.4 ml/M2 <25 3D Vol. Indexed Normal LV(ED): <62 LV(ES): <24 LV EF: 54 % (Normal: >=54%) LV Septum: 0.7 cm (Normal: <0.9 cm) Wall Motion Scoring (1=Normal 2=Hypo 3=Akinetic 4=Dyskin./Aneurysm 0=Not visualized) Parasternal Long [place]:MAS=1 BAS=1 MIL=1 DAMIAN=1 Parasternal Short [place]:MAS=1 MIS=1 MS=1 MIL=1 MAL=1 MA=1 Apical 4 Chambers:=1 MIS=1 BIS=1 BAL=1 MAL=1 AL=1 AC=1 Apical 2 Chambers:AI=1 MS=1 BI=1 BA=1 MA=1 AA=1 AC=1 LV Global Longitudinal Strain: -20% (Normal <-17%) RV Global Longitudinal Strain: -19% (Normal <-17%) LV Function: Normal LV Ejection Fraction, (EF=54-74%) RV Function: Normal Septal Motion: Pericardial Effusion: none seen Atrial Septum: DOPPLER/COLOR FLOW DOPPLER RESULTS: Diastolic Function: Normal Tricuspid Valve: mild TV regurgitation Pulmonic Valve: Mild TN AV Regurgitation: No AR seen AV Stenosis: AV Area: cm2 AV Pressure Gradient (mmHg): Mean: 0, Peak:0 MV Regurgitation: Mild MR MV Stenosis: MV Area: cm2 MV Pressure Gradient (mmHg): Mean: 0 MV ERO: cm Regurg. Vol.: ml/beat Regurg. Frac.: % PA Pressure: mmHg DOPPLER/COLOR FOLOW DOPPLER COMMENTS: No AR seen, Mild MR, mild TV regurgitation, Mild TN. Diastolic function: Normal SUMMARY: Normal LV systolic function. Likely normal LV wall thickness.Normal global LV Myocardial longitudinal function and LV strain pattern. Normal RV size and function. Normal LA/RA size. Mild thickened MV with mild MR. No significant abnormalty seen in other valves. Normal aortic root in current limited views. Trace pericardial effusion. Confirmed on 03/25/2023 - 17:08:37 by Tavares Valenzuela MD By signing this report, the attending records management technician certifies that he or she has personally supervised and interpreted the echocardiogram and has reviewed and or edited and agrees with the written comments contained within the report. Result [facility] Conrad Simmons MD CV ECHO PROCEDURES Final Result documented in this encounter Visit Diagnoses Diagnosis History of non-ST elevation myocardial infarction (NSTEMI) documented in this encounter Care Teams Podopediatrician Relationship Specialty Start Date End Date No, Physician PCP - General 11/01/16 documented as of this encounter
--- OUTSIDE RECORDS SUMMARY | 2024-04-02 11:53 | XMS_ITS | Encounter Summary ---
Author Organization [facility] Healthcare Address [address] [place] [address] Care Team Providers Care Supervisor Baking Name Role Phone No, Physician Primary Care Provider [phone] Reason for Visit * Reason Comments High Risk Gestation Encounter Details Date Type Department Care Team (Late st Contact Info) Description 02/24/2023 3:00 PM FACILITIES SUPERVISOR Office Visit Obstetrics and Gynecology Clinic [address] [facility] 3rd Floor [address] [place] [address] Supervision of high-risk , second trimester (Primary Dx); HROB: Maternal varicella, non-immune; Encounter for supervision of normal in first trimester, unspecified ; HROB: Hx of preeclampsia, prior , currently ; HROB: Maternal anemia in , antepartum, first trimester; HROB: Tobacco use; HROB: History of non-ST elevation myocardial infarction (NSTEMI); HROB: Family Hx Congenital Heart Disease; Supervision of high risk in second trimester; History of pre-eclampsia Social History Tobacco Use Types Packs/Day Years [...] money to get more. Often true 01/02/2023 [place] Depression Scale Answer Date Recorded [place] Depression Scale Total 1 02/24/2023 The thought of harming myself has occurred to me . Never 02/24/2023 Comments Yes Sex and Gender Information Value Date Recorded Sex Assigned at Not on file Legal Sex Female 8:40 PM FACILITIES SUPERVISOR Gender Identity Female 12/02/2022 6:55 PM CDT Sexual Orientation Straight 12/02/2022 6: 55 PM CDT documented as of this encounter Last Filed Vital Signs Vital Sign Reading Time Taken Comments Blood Pressure 114/56 02/24/2023 2:57 PM FACILITIES SUPERVISOR Pulse 72 02/24/2023 2:57 PM FACILITIES SUPERVISOR Temperature - - Respiratory Rate - - Oxygen Saturation 100% 02/24/2023 2:57 PM FACILITIES SUPERVISOR Inhaled Oxygen Concentration - - Weight 91.6 kg (202 lb) 02/24/2023 2:57 PM FACILITIES SUPERVISOR Height - - Body Mass Index 32.6 02/19/2023 8:31 AM FACILITIES SUPERVISOR documented in this encounter Progress Notes * Magali Dykes MD - 02/24/2023 3:00 PM CST OB RETURN VISIT 02/24/2023 Subjective: Brenda Shi is a 27 y.o. at 26w4d who presents for her return OB visit. Hx preE with NSTEMI, family h/o CHD, hxCSx1 (NRFS), varicella NI No LOZANO, vision changes or RUQ pain. Taking ASA daily. Still vaping, not really using patches anymore. movement: Yes Vaginal Bleeding: No LOF: No Contractions/cramping: none Objective: Vitals: 02/24/23 1457 BP: 114/56 Pulse: 72 SpO2: 100% Weight: 202 lb (91.6 kg) FHR: Present and within normal limits Gen: No acute distress. Abdomen: Soft, nontender, gravid. Fundal Height: 27CM Extremities: Warm, well perfused. No lower extremity edema/erythema/tenderness Urine: Lab Results Component Value Date GLUCOSEUR Negative 02/24/2023 KETONESU Negative 02/24/2023 PROTUR 6.3 12/02/2022 Assessment/Plan: 27 y.o. at 26w4d. Problem List HROB: Encounter for supervision of normal in first trimester Overview *Ludmial quintanilla del* 1st Trimester: [x] Dating Criteria: [...] ultrasound: wnl 01/02 [x] CBC: Hgb 9.7 [] 1hr GTT (24-28wks): ordered 02/24 [x] Flu Shot (Sep-Dec): 02/24 [] Tdap (27-36wks): [x] Rhogam (if Rh neg): not indicated [] Childbirth classes discussed [] education (colostrum, expected breast changes, plan for RTW) and breast pump ordered [] Second trimester education packet 3rd Trimester: [] CBC/HIV/RPR/T&S: [] GBS: [] GC/CT/Trich (if indicated): [] Final discussion (S2S, Baby Friendly, LC Support, PP experience) [] Third trimester education packet Last visit: [] Last clinic visit SVE: [] IOL start agent: [] Epidural: [] Consents signed: Counseling: [] Method of delivery: [] Bottle of CHG 4% and hand out provided @ 36wks (if planned) [] Timing of delivery: [] MOC: [] MOF: [] COVID-19 vaccine counseling [] education: completed in all 3 trimesters [] Cleaning Crew Member: [] Car seat discussed [] PP depression counseling HROB: Family Hx Congenital Heart Disease Overview - Pt w/ sister w/ Tetrology of Fallot - Patient and FOB without hx of CHD - Several cousins on maternal side w/ CHD (unknown diagnosis) - S/p low risk counseling at IOB, declined genetic counseling Plan: - Cont exp management HROB: Tobacco use Overview - Reports vaping during . - S/p counseling Plan: - Cont nicotine patch 7 mg - Cont to address cessation qVisit HROB: Maternal varicella, non-immune Overview - Varicella NI Plan: - For varivax HROB: Hx of preeclampsia, prior , currently Overview - H/o preeclampsia in her prior complicated by NSTEMI - Baseline labs: CBC/CMP wnl, UPC 0.05 on 12/02 - S/p counseling at IOB Plan: - Cont LD ASA ppx - F/u baseline ECHO, scheduled 04/07 HROB: History of non-ST elevation myocardial infarction (NSTEMI) Overview - NSTEMI in last in setting of preeclampsia (which is an independent risk factor for [place] in and per literature review) - Previously seen by cardiology, not seen since 2020, baseline BNP 12/2022 of <50 - Asymptomatic at IOB, EOB visits - Most recent cardiac cath (2020): elevated filling pressures, no evidence of CAD or SCAD - Missed cards apt 01/12 Plan: - Cont ASA - Cont to encourage tobacco cessation - Baseline EKG/echo ordered, provided phone # for scheduling - Maternal cardiology recs as below Maternal [...] post- recommendations: Post- BP monitoring Follow-up: Post HROB: Maternal anemia in , antepartum, first trimester Overview - Hgb on IOB labs 9.7 with MCV 83 fL - Hemoglobin electrophoresis with normal pattern for age - Ferritin 30 - Repeat Hgb 11.9 after 4 weeks - S/p counseling Plan: - CBC qTrimester - continue iron supplementation with PNV Labs: GTT, CBC, RPR Medications: N/A US: N/A Testing: N/A Referrals: N/A Return to resident clinic in 4 weeks. Seen and discussed with Dr. Cruz and Dr. Mcneal. Magali Brown MD [facility] Fellow Attestation I have discussed Brenda Shi with the resident, Dr. Brown on 02/24/2023. I have reviewed thetreatment plan and recommendations and agree with the findings and the plan of care as documented in the resident???s note with the following addendum: Briefly, this is a 27 y.o. at 26w4d with complicated by Hx preE with NSTEMI, family h/o CHD, hxCSx1 (NRFS), varicella NI. Summary of visit: -Reassuring evaluation with cardiology and prior NSTEMI occurred in the setting of demand with pre-eclampsia. Plan for repeat echo 28-32wks per cardiology with BNP at that time. Continue to monitor BP and for si/sx of pre-eclampsia. Taking ASA. Overall appears to be low risk for repeat cardiac event. -Plan to transfer back to resident clinic with Dr. Keys. -HROB remains available if additional questions or concerns arise. Appreciate cardiology recs. Sheree Mcneal MD, MPH Cosigned by Prince Cruz MD at 02/25/2023 10:10 AM FACILITIES SUPERVISOR LITIES SUPERVISOR LITIES SUPERVISOR Associated attestation - Prince Cruz MD - 02/25/2023 10:10 AM FACILITIES SUPERVISOR I have seen and examined the patient. I agree with the findings and plan of care as documented in the resident/fellow's note. My total encounter time on 02/24/2023 was 15 minutes which was spent in the activities documented in the note. This includes time spent prior to the visit and after the visit in direct care of the patient. This time does not include time spent in any separately reportable services. Doing well Discussed warnings Return to resident clinic documented in this encounter Plan of Treatment Pending Results Name Type Priority Associated Diagnoses Date /Time Pro B-type natriuretic peptide Lab Routine Supervision of high-risk , second trimester 02/24/2023 4:05 PM FACILITIES SUPERVISOR documented as of this encounter Procedures Procedure Name Priority Date/Time Associated Diagnosis Comments PRO B-TYPE NATRIURETIC PEPTIDE Routine 02/24/2023 4:05 PM FACILITIES SUPERVISOR Supervision of high-risk , second trimester GTT 50GM 1HR GESTATIONAL SCREEN Routine 02/24/2023 4:05 PM FACILITIES SUPERVISOR Supervision of high-risk , second trimester RPR Routine 02/24/2023 4:05 PM FACILITIES SUPERVISOR Supervision of high-risk , second trimester CBC WITHOUT DIFFERENTIAL Routine 02/24/2023 4:05 PM FACILITIES SUPERVISOR Supervision of high-risk , second trimester POCT URINALYSIS (CLINITEK) Routine 02/24/2023 3:11 PM FACILITIES SUPERVISOR Supervision of high-risk , second trimester documented in this encounter Results * Pro B-type natriuretic peptide (02/24/2023 4:05 PM FACILITIES SUPERVISOR) NT-proBNP <50 <=300 pg/mL EUNICE AGGARWAL Comment: Interpretive Comments: A. Dyspnea in Acute [...] et.al. Eur Heart J. 2006:27:330-337. 2. Darci BIGGS, Saeid JACKSON. J. AM Loulou Cardiol: Cardiovasc Imag. 2009;2: 216- 225. Interpretive Data Last Revised Date: 2017. Blood 02/24/2023 4:05 PM FACILITIES SUPERVISOR 02/24/2023 4:45 PM FACILITIES SUPERVISOR us Giuliana Crisostomo MD LAB BLOOD KATARZYNA SANTA Final Result [facility] [place] [address] * RPR Blood (02/24/2023 4:05 PM FACILITIES SUPERVISOR) RPR Nonreactive Nonreactive [facility] Blood 02/24/2023 4:05 PM FACILITIES SUPERVISOR 02/24/2023 4:34 PM FACILITIES SUPERVISOR Magali Mathis MD LAB MICROBIOLOGY - GENERAL ORDERABLES Final Result Performing Organization Address [facility] Co de Phone Number [facility] [place] [address] * (ABNORMAL) CBC without differential (02/24/2023 4:05 PM FACILITIES SUPERVISOR) WBC 8.8 3.8 - 9.9 K/cumm [facility] Hgb 11.2(L) 11.9 - 15.5 g/dL [facility] Comment: Interpretive Data A reference range for this assay has not been established for patients with an unknown legal sex. Please refer to the laboratory test catalog for established sex-specific reference intervals. Current interpretive data was last revised on 2023. Hct 34.6(L) 35.6 - 45.5 % [facility] Comment: Interpretive Data A reference range for this assay has not been established for patients with an unknown legal sex. Please refer to the laboratory test catalog for established sex-specific reference intervals. Current interpretive data was last revised on 2023. Plt 258 150 - 400 K/cumm [facility] MPV 11.1 9.1 - 12.3 fL [facility] RBC 4.15 3.90 - 5.20 M/cumm [facility] Comment: Interpretive Data A reference range for this assay has not been established for patients with an unknown legal sex. Please refer to the laboratory test catalog for established sex-specific reference intervals. Current interpretive data was last revised on 2023. MCV 83.4 81.3 - 96.4 fL [facility] MCH 27.0(L) 27.1 - 33.3 pg [facility] MCHC 32.4 32.3 - 35.7 g/dL [facility] RDW CV 14.2 11.1 - 14.9 % [facility] RDW SD 43.1 35.7 - 48.1 fL [facility] NRBC abs 0.00 0.00 - 0.01 K/cumm [facility] Blood 02/24/2023 4:05 PM FACILITIES SUPERVISOR 02/24/2023 4:35 PM FACILITIES SUPERVISOR Magali Mathis MD LAB BLOOD ORDERA BLES Final Result [facility] Department [place] [address] * Glucose tolerance testing 50 gram gestational screen (02/24/2023 4:05 PM FACILITIES SUPERVISOR) [facility] GTT 50g gest screen 101 <=140 mg/dL [facility] Comment: Interpretive Data Used for suspected gestational diabetes. The screening test uses 50 grams of glucose with sample obtained 1 hr later. Normal range: < 140 mg/dL. A glucose value of >140 mg/dL generally indicates the need for a full diagnostic tolerance test. Reference Interval Info: Diabetes Care 2005, Vol 28. Supplement 1,S37-S42. Report of the Expert Committee on the Diagnosis and Classification of Diabetes Mellitus. Diabetes Care 2020; 43(Supplement 1):S14-31. Current interpretive data was last revised on 2020. Blood 02/24/2023 4:05 PM FACILITIES SUPERVISOR 02/24/2023 4:34 PM FACILITIES SUPERVISOR Magali Mathis MD LAB BLOOD ORDERA BLES Final Result Performing Organization Address City/[facility]/ZIP Co de Phone Number EUNICE BAEZ [facility] Department [place] [address] * (ABNORMAL) POCT urinalysis (Clinitek) (02/24/2023 3:11 PM FACILITIES SUPERVISOR) Color, ur, POC Yellow Yellow [facility] Clarity, UA, POC Clear Clear [facility] Glucose, ur, POC Negative Negative [facility] Bilirubin, ur, POC Negative Negative [facility] Ketones, ur, POC Negative Negative [facility] Specific gravity, ur, POC >=1.030(A) 1.010 - 1.025 [facility] Blood, ur, POC Negative Negative [facility] pH, ur, POC 6.5 [facility] Comment: Interpretive Data Urine pH is affected by diet, medications, systemic acid-base disturbances, and renal tubular function. pH may affect urinary stone formation. For example, urine pH below 6.0 may help reduce the tendency for calcium phosphate stones and pH greater than 6.0 may reduce the tendency for uric acid stone formation. Source: [facility] Radialpoint. Last Revised Date: 04-23-2017 Protein, ur, POC Negative Negative [facility] Urobilinogen, ur, POC 0.2 mg/dL mg/dL [facility] Nitrites, ur, POC Negative Negative [facility] Leukocyte esterase, ur, POC Negative Negative [facility] Urine 02/24/2023 3:11 PM FACILITIES SUPERVISOR 02/24/2023 3:11 PM FACILITIES SUPERVISOR us Giuliana Crisostomo MD LAB POCT ORDER ROZINA - DEVICE Final Result Performing Organization Address [facility]/ZIP Co de Phone Number EUNICE [facility] Department [place] [address] documented in this encounter Visit Diagnoses Diagnosis Supervision of high-risk , second trimester- Primary HROB: Maternal varicella, non-immune Supervision of other normal Encounter for supervision of normal in first trimester, unspecified HROB: Hx of preeclampsia, prior , currently with other poor obstetric history HROB: Maternal anemia in , antepartum, first trimester HROB: Tobacco use HROB: History of non-ST elevation myocardial infarction (NSTEMI) HROB: Family Hx Congenital Heart Disease Unspecified congenital anomaly of heart Supervision of high risk in second trimester History of pre-eclampsia documented in this encounter Care Teams Supervisor Baking Relationship Specialty Start Date End Date No, Physician PCP - General 11/01/16 documented as of this encounter
--- OUTSIDE RECORDS SUMMARY | 2024-04-02 11:53 | XMS_ITS | Encounter Summary ---
Author Organization [facility] Healthcare Address [address] [place] [address] Care Team Providers Care Consumer Lender Name Role Phone No, Physician Primary Care Provider [phone] Encounter Details Date Type Department Care Team (Late st Contact Info) Description 02/10/2023 Telephone Obstetrics and Gynecology Clinic [address] [facility] 3rd Floor [address] [place] [address] Lu Hagan Social History Tobacco Use Types Packs/Day Years Used Date Smoking Tobacco: Former Cigarettes Smokeless Tobacco: Never Comments:pt vapes Alcohol Use Standard Drinks/Week Comments [...] money to get more. Often true 01/02/2023 [place] Depression Scale Answer Date Recorded [place] Depression Scale Total 1 02/24/2023 The thought of harming myself has occurred to me . Never 02/24/2023 Comments Yes Sex and Gender Information Value Date Recorded Sex Assigned at Not on file Legal Sex Female 8:40 PM WET MACHINE OPERATOR Gender Identity Female 12/02/2022 6:55 PM CDT Sexual Orientation Straight 12/02/2022 6: 55 PM CDT documented as of this encounter Miscellaneous Notes * Telephone Encounter - Lu Hagan - 02/10/2023 9:43 AM CDT Patient called and ask if she can get a call back regarding her getting help with transportation for her appt today please and thanks. documented in this encounter Plan of Treatment Not on file documented as of this encounter Visit Diagnoses Not on filedocumented in this encounter Care Teams Consumer Lender Relationship Specialty Start Date End Date No, Physician PCP - General 11/01/16 documented as of this encounter
--- OUTSIDE RECORDS SUMMARY | 2024-04-02 11:53 | XMS_ITS | Encounter Summary ---
Author Organization [facility] Healthcare Address [address] [place] [address] Care Team Providers Care Frame Operator Name Role Phone No, Physician Primary Care Provider Encounter Details Date Type Department Care Team (Late st Contact Info) Description 03/24/2023 Documentation Obstetrics and Gynecology Clinic [address] [facility] 3rd Floor [address] [place] [address] Tara Lai LCSW Social History Tobacco Use Types Packs/Day Years [...] money to get more. Often true 01/02/2023 [place] Depression Scale Answer Date Recorded [place] Depression Scale Total 1 02/24/2023 The thought of harming myself has occurred to me . Never 02/24/2023 Personal Safety Answer Date Recorded Getting School Help Needed Not on file 03/23 Comments Yes Sex and Gender Information Value Date Recorded Sex Assigned at Not on file Legal Sex Female 8:40 PM ELECTRONICS PRODUCTION SUPERVISOR Gender Identity Female 12/02/2022 6:55 PM CDT Sexual Orientation Straight 12/02/2022 6: 55 PM CDT documented as of this encounter Progress Notes * Tara Lai LCSW - 03/24/2023 1:34 PM CST Problem: Patient referred to Social Work for assistance with transportation. Goal: Kohinoor Operator met with patient who has [employer] insurance. Kohinoor Operator contacted patient who attempted to set up own transportation but was denied due to not enough notice . Kohinoor Operator contacted RD/Mary to confirm [facility] appointment. MTGeovanna ridyuri arranged for 03/25/23 at 3:00-4:30pm.Coming from [address] [place] [address], going to [address] [place] [address], [id number]. Kohinoor Operator sent Stukent message with Slingbox, provided own contact information for questions or additional resources. No further action at this time. Kohinoor Operator available. MYA Willingham LCSW Kohinoor Operator OFFICE SYSTEM ANALYST Clinic, Wound Clinic, CPAP Clinic TRONICS PRODUCTION SUPERVISOR documented in this encounter Plan of Treatment Not on file documented as of this encounter Visit Diagnoses Not on filedocumented in this encounter Care Teams Frame Operator Relationship Specialty Start Date End Date No, Physician PCP - General 11/01/16 documented as of this encounter
--- OUTSIDE RECORDS SUMMARY | 2024-04-02 11:53 | XMS_ITS | Encounter Summary ---
Author Organization [facility] Healthcare Address [address] [place] [address] Care Team Providers Care Side Door Man Name Role Phone No, Physician Primary Care Provider [phone] Encounter Details Date Type Department Care Team (Latest Contact Info) Description 12/02/2022 1:27 PM CDT - 12/02/2022 11:59 PM CDT Hospital Encounter [facility] PATHOLOGY [address] [facility] [address] [place] [address] Encounter for supervision of other normal in first trimester Discharge Disposition: Discharge to home or self [...] of Binge Drinking Not on file 08/11 [place] Depression Scale Answer Date Recorded [place] Depression Scale Total 0 07/05/2020 The thought of harming myself has occurred to me . Never 07/05/2020 Comments Yes Sex and Gender Information Value Date Recorded Sex Assigned at Not on file Legal Sex Female 8:40 PM OIL HEATER OPERATOR Gender Identity Female 12/02/2022 6:55 PM CDT Sexual Orientation Straight 12/02/2022 6: 55 PM CDT documented as of this encounter Medications at Time of Discharge acetaminophen 500 mg capsuleIndicatio ns:Pain Take 2 capsules (1,000 mg total) by mouth every 6 (six) hours 120 tablet 3 09/30/2020 3 aspirin 81 mg chewable tablet Take 1 tablet (81 mg total) by mouth daily 30 tablet 11 12/02/2022 3 azelaic acid 15 % gel APPLY TO FACE TWICE A DAY 08/01/2020 4 enalapril (VASOTEC) 10 mg tablet Take 1 tablet (10 mg total) by mouth 2 (two) times a day 60 tablet 11 10/12/2020 3 ibuprofen (ADVIL,MOTRIN) 600 mg tabletIndication s:Cramps Take 1 tablet (600 mg total) by mouth every 6 (six) hours 120 tablet 3 09/30/2020 3 PNV with [id number] ( Vitamin Plus Low Iron) 27 mg iron- 1 mg tablet Take 1 tablet by mouth daily 30 tablet 11 12/02/2022 3 polyethylene glycol (MIRALAX) 17 gram packetIndication s:constipation Take 1 packet (17 g total) by mouth daily as needed for constipation 30 packet 3 09/30/2020 3 polyethylene glycol (MIRALAX) 17 gram/dose powder Take 17 g by mouth daily 510 g 02/03/2020 4 documented as of this encounter Discharge Disposition Disposition Code Departure Means Destination Discharge to home or self care documented in this encounter Plan of Treatment Not on file documented as of this encounter Procedures Procedure Name Priority Date/Time Associated Diagnosis Comments THINPREP PROCESSING (MOLECULAR COMPONENT) Routine 12/03/2022 5:37 AM CDT Encounter for supervision of other normal in first trimester PAP WITH REFLEX TO HIGH RISK HPV Routine 12/02/2022 1:27 PM CDT Encounter for supervision of other normal in first trimester documented in this encounter Results * ThinPrep processing (Molecular component) (12/03/2022 5:37 AM CDT) ThinPrep processing (Molecular component) Specimen received for processing. EUNICE [facility] Endocervical 12/03/2022 5:37 AM CDT 12/03/2022 11:34 AM CDT Shruthi Keys MD LAB BODY FLUIDS AND STOOLS ORDERABLES Final Result [facility] Department [place] [address] * Pap with reflex to High Risk HPV and Genotyping (Cytology Component) (12/02/2022 1:27 PM CDT) Thin prep (Pap test) 12/02/2022 1:27 PM CDT 12/02/2022 5:37 PM CDT Narrative PATHOLOGY [facility] - 12/04/2022 2:41 PM CDT EPIC results best viewed via link to PDF [facility] [place] [address] Note to Patients: This report may contain [...] the details. CYTOPATHOLOGY REPORT FINAL Patient Name: ??STEVE SHIConsuelo Gender: ??F : ??1995 (Age: 27) Address: ??[address] [place] [address] ??[id number] Hospital #: ??[id number] Service: ??MANAGER COMMODITIES Location: ?? Patient Type: ??[facility] SPECIMEN Taken: ??12/02/2022 Received: ??12/02/2022 Accessioned: ??12/03/2022 [...] clinical information and biopsy results as indicated. [facility] Clinical Laboratory Improvement Amendments (CLIA) mandate that cytologic and histologic results be correlated for laboratory quality coordinator & improvement standards. ??FOR ALL HIGH-GRADE CASES [...] determined by the Surgical Pathology Department at [facility] as part of an ongoing corporate quality engineer program and in compliance with federally mandated [...] determined by the Surgical Pathology Department of [facility]. ??It has not been cleared or approved by the U. S. Food and Drug Administration. Shruthi Keys MD LAB CYTOLOGY ORDERA BLES Final Result PATHOLOGY [facility] 3rd Floor [place], [place] [phone] documented in this encounter Visit Diagnoses Diagnosis Encounter for supervision of other normal in first trimester documented in this encounter Care Teams Side Door Man Relationship Specialty Start Date End Date No, Physician PCP - General 11/01/16 documented as of this encounter
--- OUTSIDE RECORDS SUMMARY | 2024-04-02 11:53 | XMS_ITS | Encounter Summary ---
Author Organization [facility] Healthcare Address [address] [place] [address] Care Team Providers Care Cellar Pumper Name Role Phone No, Physician Primary Care Provider [phone] Encounter Details Date Type Department Care Team (Late st Contact Info) Description 10/25/2020 Telephone [facility] [address] [place] [address] Emely Saavedra MD [address] [id number] Social History Tobacco Use Types Packs/Day Years [...] of Binge Drinking Not on file 08/11 [place] Depression Scale Answer Date Recorded [place] Depression Scale Total 0 07/05/2020 The thought of harming myself has occurred to me . Never 07/05/2020 Comments No Sex and Gender Information Value Date Recorded Sex Assigned at Not on file Legal Sex Female 8:40 PM ACETYLENE TORCH OPERATOR Gender Identity Female 12/02/2022 6:55 PM CDT Sexual Orientation Straight 12/02/2022 6: 55 PM CDT documented as of this encounter Miscellaneous Notes * Telephone Encounter - Emely Saavedra MD - 10/25/2020 1:37 PM CDT R2 Update Note Per Dr. Munson' recommendation, called patient to inform her to start taking enalapril 5mg BID, and if BP continues to be <120/80, can stop medication and continue to keep log of Bps. Patient expressed understanding, all questions answered. Has follow-up with Dr. Munson in January. Emely Saavedra MD OBGYN, R2 documented in this encounter Plan of Treatment Not on file documented as of this encounter Visit Diagnoses Not on filedocumented in this encounter Care Teams Cellar Pumper Relationship Specialty Start Date End Date No, Physician PCP - General 11/01/16 documented as of this encounter
--- OUTSIDE RECORDS SUMMARY | 2024-04-02 11:53 | XMS_ITS | Encounter Summary ---
Author Organization [facility] Healthcare Address [address] [place] [address] Care Team Providers Care Aviation Engineer Name Role Phone No, Physician Primary Care Provider [phone] Encounter Details Date Type Department Care Team (Late st Contact Info) Description 12/23/2022 Orders Only [facility] 1 [place] [address] Shruthi Keys MD [address] [facility] [address] [id number] Social History Tobacco Use Types Packs/Day Years [...] of Binge Drinking Not on file 08/11 [place] Depression Scale Answer Date Recorded [place] Depression Scale Total 0 07/05/2020 The thought of harming myself has occurred to me . 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 2 tablet 12/23/2022 3 documented in this encounter Progress Notes * Shruthi Keys MD - 12/23/2022 10:59 AM CDT Pap results with c/f yeast infection, pt contacted via [employer] and reports symptoms. Rx for diflucan sent to preferred pharmacy. Shruthi Keys MD PGY-2, Obstetrics & Gynecology 12/23/22 documented in this encounter Plan of Treatment Not on file documented as of this encounter Visit Diagnoses Not on filedocumented in this encounter Care Teams Aviation Engineer Relationship Specialty Start Date End Date No, Physician PCP - General 11/01/16 documented as of this encounter
--- OUTSIDE RECORDS SUMMARY | 2024-04-02 11:53 | XMS_ITS | Encounter Summary ---
Author Organization [facility] Healthcare Address [address] [place] [address] Care Team Providers Care Sugar Drier Name Role Phone No, Physician Primary Care Provider [phone] Reason for Visit * Reason Comments Routine Visit Encounter Details Date Type Department Care Team (Late st Contact Info) Description 01/02/2023 11:00 AM CDT Office Visit Obstetrics and Gynecology Clinic [address] [facility] 3rd Floor [address] [place] [address] Shruthi Keys MD [address] [facility] [address] [place] [address] Encounter for supervision of other normal in second trimester (Primary Dx); History of non-ST elevation myocardial infarction (NSTEMI); Hx of preeclampsia, prior , currently ; Encounter for supervision of normal in first trimester, unspecified ; Maternal anemia in , antepartum, first trimester; Tobacco use Social History Tobacco Use Types Packs/Day Years Used Date Smoking Tobacco: Former Cigarettes Smokeless Tobacco: Never Tobacco Cessation:Counseling Given: Not Answered Comments:pt vapes Alcohol Use [...] money to get more. Often true 01/02/2023 [place] Depression Scale Answer Date Recorded [place] Depression Scale Total 0 07/05/2020 The thought of harming myself has occurred to me . Never 07/05/2020 Comments Yes Sex and Gender Information Value Date Recorded Sex Assigned at Not on file Legal Sex Female 8:40 PM RNP Gender Identity Female 12/02/2022 6:55 PM CDT Sexual Orientation Straight 12/02/2022 6: 55 PM CDT documented as of this encounter Last Filed Vital Signs Vital Sign Reading Time Taken Comments Blood Pressure 102/50 01/02/2023 11:30 AM CDT Pulse 65 01/02/2023 11:30 AM CDT Temperature - - Respiratory Rate - - Oxygen Saturation 100% 01/02/2023 11:30 AM CDT Inhaled Oxygen Concentration - - Weight 85.9 kg (189 lb 4.8 oz) 01/02/2023 11:30 AM CDT Height - - Body Mass Index 30.55 12/02/2022 1:24 PM CDT documented in this encounter Patient Instructions * Patient Instructions* Shruthi Keys MD - 01/02/2023 11:00 AM CDT To do list: - Schedule echo (heart ultrasound) using phone number in red below. Please try to schedule before 01/12. You can tell the spares scheduler that you have an appointment with heart doctor on 01/12 and need the test done beforehand. [facility] (echos): or - Go to [facility] ([place] for advanced medicine) on the 7th floor for your EKG (stickers on chest that look at heart rhythms) Contact us Office hours: Thursday-Thursday 8:30 AM-4:30 PM Phone number: [phone] Daytime: Call us if you have questions [...] medical problem, you can call us at [phone]. Please wait until the clinic is open for non-urgent needs as this emergency line cannot help with appointments, paperwork or prescriptions. If you have an emergency and cannot wait, please call 911 or go to the [facility] Emergency room. If you are having a problem with your or are in labor you can [facility] (check in near elevator on first floor) [address] [facility], [address]th [place] [address]. Phone numbers for patients to call and schedule specialty appointments Neurology: Cardiology: [facility] (echos): or [facility] ( echos): or [place] [facility]: Ophthalmology: (EYES) Radiology: (SAFE-RAD) Endocrine: Renal/Nephrology: or Transplant Nephrology: or documented in this encounter Progress Notes * Shruthi Keys MD - 01/02/2023 11:00 AM CDT OB RETURN VISIT 01/02/2023 Subjective: Brenda Shi is a 27 y.o. at 19w0d who presents for her return OB visit. Her is currently complicated by Hx CSx1 (NRFS), hx preE with NSTEMI, anemia, family h/o CHD, tobacco use, cannabis use. No complaints today. Has not been able to schedule TTE/EKG yet. Denies LOZANO, VC, SOB, RUQ pain, chestpain. Taking baby aspirin. movement: Yes Vaginal Bleeding: No LOF: No Contractions/cramping: none Objective: Vitals: 01/02/23 1130 BP: 102/50 BP Location: Left arm Patient Position: Sitting Pulse: 65 SpO2: 100% Weight: 189 lb 4.8 oz (85.9 kg) FHR: Confirmed on US today Gen: No acute distress. Abdomen: Soft, nontender, gravid. Fundal Height: Deferred given US today Extremities: Warm, well perfused. No lower extremity edema/erythema/tenderness Urine: Lab Results Component Value Date GLUCOSEUR Negative 12/02/2022 KETONESU Negative 12/02/2022 PROTUR 6.3 12/02/2022 Assessment/Plan: 27 y.o. at 19w0d. Problem List Encounter for supervision of normal in first trimester Overview 1st Trimester: [x] Dating Criteria: L=2 [x] Labs (12/02): Rh pos, Ab , CBC with Hgb 9.6, Rubella IM, VZV NONIMM, HIV NR, RPR NR, HepBSAg NR, Hep C Ab NR [x] GC/CT/Trich: neg x3 [x] UCx: CIG [x] vitamins [x] Genetic Screening: low risk (12/02) [x] CF/SMA carrier screening: negative (12/02) [] Hgb electrophoresis: ordered, pending [x] Pap: NILM 12/02/22 [x] EPDS: PNBHS referral (if indicated) - not indicated [x] ASA at 12 weeks (if indicated) [] DM screening: HgbA1c ordered [] Feeding Preferences: benefits of discussed with patient at RN IOB 2nd Trimester: [x] Anatomy ultrasound: wnl 01/02 [x] CBC: Hgb 9.7 [] 1hr GTT (24-28wks): [] Flu Shot (Dec-Mar): to be offered 01/12 [] Tdap (27-36wks): [x] Rhogam (if Rh [...] education: completed in all 3 trimesters [] Blow Mold Operator: [] Car seat discussed [] PP depression counseling Tobacco use Overview Reports vaping during . S/p counseling. Patient motivated to quit, desires nicotine patches to aid in cessation. Plan - will start nicotine patch 7 mg - discussed increasing dose if not helpful in decreasing cravings Hx of preeclampsia, prior , currently Overview Patient has a history of preeclampsia in her prior complicated by NSTEMI. I discussed that 15-20 percent of women developed either recurrent preeclampsia or developed gestationalhypertension in a subsequent . The risk is lower if there was no severe features. Prevention of recurrence can be reduced with taking a low dose aspirin 81 mg daily starting after 12 weeks. Patient was educated on the signs and symptoms of preeclampsia which can begin as early as 20 weeksgestation. Patient is aware of importance of being compliant with visits to allow blood pressure and urine assessment. Plan: [x] ASA at 12 weeks - ordered [x] Baseline labs (CBC/CMP wnl, UPC 0.05 12/02) [x] Secondary HTN work-up (if resistant to tx, dx < 30 years) - not indicated [ ] EKG/Echo (if dx>4 years or >30), ordered History of non-ST elevation myocardial infarction (NSTEMI) Overview - NSTEMI in last in setting of preeclampsia (which is an independent risk factor for CT in and per literature review) - Previously seen by cardiology, not seen since 2020 - Asymptomatic at IOB, EOB visits - Most recent cardiac cath (2020): elevated filling pressures, no evidence of CAD or SCAD Recommendations: - Daily ASA prescribed, encouraged patient to keep taking - Continue to encourage tobacco cessation - Baseline EKG/echo ordered, provided phone # for scheduling - Maternal cardiology referral, scheduled for 01/12 (reminded of appointment) - Baseline BNP ordered 12/30 Relevant Orders Pro B-type natriuretic peptide Maternal anemia in , antepartum, first trimester Overview Hgb on IOB labs 9.7 History - Hemoglobin 9.7 g/dL on 12/02/22 - MCV 83 fL - Hemoglobin electrophoresis pending collection, ordered - Ferritin ordered, pending Counseling Anemia in is diagnosed when hemoglobin (g/dL) and hematocrit (percentage) levels are below 11 g/dL and 33%, respectively, in the first trimester; 10.5 g/dL and 32%, respectively, in the second trimester; and 11 g/dL and 33%, respectively, in the third trimester. The most common cause of anemia in is iron deficiency, however other inherited and acquired causes must be evaluatedfor. . Relevant Orders Hemoglobin analysis by electrophoresis RTC 4 weeks in HROB, pending maternal cardiology recommendations will decide if patient will followup in resident or HROB. Seen and discussed with Dr. Heredia. Shruthi Keys MD Cosigned by Audra Heredia MD at 01/06/2023 8:02 PM CDT Associated attestation - Audra Heredia MD - 01/06/2023 8:02 PM CDT I have seen and examined the patient. I agree with the findings and plan of care as documented in the resident/fellow's note. My total encounter time on 01/02/2023 was 15 minutes which was spent in the activities documented in the note. This includes time spent prior to the visit and after the visitin direct care of the patient. This time does not include time spent in any separately reportable services. documented in this encounter Plan of Treatment Not on file documented as of this encounter Procedures Procedure Name Priority Date/Time Associated Diagnosis Comments PRO B-TYPE NATRIURETIC PEPTIDE Routine 01/02/2023 12:34 PM CDT History of non-ST elevation myocardial infarction (NSTEMI) IRON PROFILE W/ IBC Routine 01/02/2023 1 2:34 PM CDT Encounter for supervision of other normal in second trimester HEMOGLOBIN ANALYSIS BY ELECTROPHORESIS Routine 01/02/2023 12:34 PM CDT Maternal anemia in , antepartum, first trimester HEMOGLOBIN A1C Routine 01/02/2023 12:34 PM CDT Encounter for supervision of other normal in second trimester FERRITIN Routine 01/02/2023 12:34 PM CDT Encounter for supervision of other normal in second trimester POCT URINALYSIS (CLINITEK) Routine 01/02/2023 12:12 PM CDT documented in this encounter Results * Hemoglobin analysis by electrophoresis (01/02/2023 12:34 PM CDT) RBC 4.37 3.90 - 5.20 M/cumm [facility] Hgb 11.9 11.9 - 15.5 g/dL [facility] MCV 83.3 81.3 - 96.4 fL [facility] Rdw 13.9 11.1 - 14.9 % [facility] Hgb electrophores is, interp Normal Hemoglobin Pattern - For Age [facility] Hgb A 97.5 96.0 - 98.5 % [facility] Hgb A2 2.5 1.5 - 3.2 % [facility] Hgb F <0.4 0.0 - 0.9 % [facility] Blood 01/02/2023 12:3 4 PM CDT 01/02/2023 1:30 PM CDT us Shruthi Keys MD LAB BLOOD ORDERABLE S Edited Result - Final [facility] [place] [address] * Pro B-type natriuretic peptide (01/02/2023 12:34 PM CDT) NT-proBNP <50 <=300 pg/mL [facility]UN[facility] Comment: [...] Interpretive Data Last Revised Date: 2017. Blood 01/02/2023 12:3 4 PM CDT 01/02/2023 1:30 PM CDT Shruthi Keys MD LAB BLOOD ORDERABLE S Final Result Performing Organization Address [facility] de Phone Number [facility] [place] [employer] [place] [address] * Hemoglobin A1c (01/02/2023 12:34 PM CDT) Pathologist [facility] Hgb A1C 5.6 4.0 - 5.6 % [facility] Estimated Average Glucose 114 mg/dL [facility] Comment: The ADA recommends reporting an estimated Average Glucose (eAG) with all Hemoglobin A1c results using the equation derived from a study of 507 normal and diabetic adults. ??Minority populations were underrepresented and children were not included. ?? (Diabetes Care 2020; 43(S1): S66-S76). ??The eAG is not equivalent to a fasting glucose. Blood 01/02/2023 12:3 4 PM CDT 01/02/2023 1:30 PM CDT Shruthi Keys MD LAB BLOOD ORDERABLE S Final Result Performing Organization Address [facility] de Phone Number [facility] [place] [address] * Iron profile w/ IBC (01/02/2023 12:34 PM CDT) Pathologist [facility] Iron 98 35 - 145 mcg/dL [facility] TIBC 398 250 - 400 mcg/dL [facility] Transferrin saturation 25 20 - 50 % [facility] Blood 01/02/2023 12:3 4 PM CDT 01/02/2023 1:30 PM CDT Shruthi Keys MD LAB BLOOD ORDER[place] [address] * Ferritin (01/02/2023 12:34 PM CDT) Ferritin 30 13 - 150 ng/mL [facility] Blood 01/02/2023 12:3 4 PM CDT 01/02/2023 1:30 PM CDT Shruthi Keys MD LAB BLOOD ORDERABLE S Final Result Performing Organization Address [facility] Co de Phone Number [facility] [place] [address] * POCT urinalysis (Clinitek) (01/02/2023 12:12 PM CDT) Color, ur, POC Yellow Yellow [facility] Clarity, UA, POC Clear Clear [facility] Glucose, ur, POC Negative Negative [facility] Bilirubin, ur, POC Negative Negative [facility] Ketones, ur, POC Negative Negative [facility] Specific gravity, ur, POC 1.025 1.010 - 1.025 [facility] Blood, ur, POC Negative Negative [facility] pH, ur, POC 7.0 [facility] Comment: Interpretive Data Urine pH is affected by diet, medications, systemic acid-base disturbances, and renal tubular function. pH may affect urinary stone formation. For example, urine pH below 6.0 may help reduce the tendency for calcium phosphate stones and pH greater than 6.0 may reduce the tendency for uric acid stone formation. Source: [facility] [employer]. Last Revised Date: 04-23-2017 Protein, ur, POC Negative Negative [facility] Urobilinogen, ur, POC 0.2 mg/dL mg/dL [facility] Nitrites, ur, POC Negative Negative [facility] Leukocyte esterase, ur, POC Negative Negative [facility] Urine 01/02/2023 12:1 2 PM CDT 01/02/2023 12:12 PM CDT Shruthi Keys MD LAB POCT ORDERABLES - DEVICE Final Result [facility] [place] [address] documented in this encounter Visit Diagnoses Diagnosis Encounter for supervision of other normal in second trimester- Primary History of non-ST elevation myocardial infarction (NSTEMI) Hx of preeclampsia, prior , currently with other poor obstetric history Encounter for supervision of normal in first trimester, unspecified Maternal anemia in , antepartum, first trimester Tobacco use documented in this encounter Care Teams Sugar Drier Relationship Specialty Start Date End Date No, Physician PCP - General 11/01/16 documented as of this encounter
--- OUTSIDE RECORDS SUMMARY | 2024-04-02 11:53 | XMS_ITS | Encounter Summary ---
Author Organization [facility] Healthcare Address [address] [place] [address] Care Team Providers Care Helicopter Pilot Instructor Name Role Phone No, Physician Primary Care Provider [phone] Reason for Visit * Reason Comments Routine Visit Encounter Details Date Type Department Care Team (Late st Contact Info) Description 05/11/2023 12:30 PM JUNIOR LEGAL SECRETARY Office Visit Obstetrics and Gynecology Clinic [address] [facility] 3rd Floor [address] [place] [address] [place] [address] [place] [address] [address] [place] [address] Encounter for supervision of normal in first trimester, unspecified (Primary Dx); HROB: Family Hx Congenital Heart Disease; HROB: History of non-ST elevation myocardial infarction (NSTEMI); HROB: Maternal varicella, non-immune; HROB: Hx of preeclampsia, prior , currently ; History of delivery; HROB: Tobacco use; HROB: Maternal anemia in , antepartum, first trimester Social History Tobacco Use Types Packs/Day Years [...] money to get more. Never true 05/11/2023 [place] Depression Scale Answer Date Recorded [place] Depression Scale Total 1 02/24/2023 The thought of harming myself has occurred to me . Never 02/24/2023 Personal Safety Answer Date Recorded Getting School Help Needed Not on file 03/23 Comments Yes Sex and Gender Information Value Date Recorded Sex Assigned at Not on file Legal Sex Female 8:40 PM JUNIOR LEGAL SECRETARY Gender Identity Female 12/02/2022 6:55 PM CDT Sexual Orientation Straight 12/02/2022 6: 55 PM CDT documented as of this encounter Patient Instructions * Patient Instructions* Shruthi Keys MD - 05/11/2023 12:30 PM JUNIOR LEGAL SECRETARY Contact us Office hours: Thursday-Thursday 8:30 AM-4:30 PM Phone number: [phone] Daytime: Call us if you have questions [...] medical problem, you can call us at [phone]. Please wait until the clinic is open for non-urgent needs as this emergency line cannot help with appointments, paperwork or prescriptions. If you have an emergency and cannot wait, please call 911 or go to the [facility] Emergency room. If you are having a problem with your or are in labor you can go to the [facility] (check in near elevator on first floor) [address] [facility], [address]th [place] [address]. OR LEGAL SECRETARY documented in this encounter Progress Notes * Shruthi Keys MD - 05/11/2023 12:30 PM CST OB RETURN VISIT 05/12/2023 Subjective: Brenda Shi is a 27 y.o. at 37w3d who presents for her return OB visit. Hx preE with NSTEMI, family h/o CHD, hxCSx1 (NRFS), varicella NI, tobacco use No issues today. Noting some low level contractions at night that occur q5-10 mins but don't last very long. No contractions during the day. Some L hip pulling and tightness throughout day that resolves spontaneously and without intervention. Denies chest pain, SOB, LOZANO, VC, RUQ pain. movement: Yes Vaginal Bleeding: No LOF: No Contractions/cramping: none Objective: There were no vitals filed for this visit. BP per RN report 135/70. FHR: Present and within normal limits BSUS: Vertex presentation Gen: No acute distress. Abdomen: Soft, nontender, gravid. Fundal Height: Deferred given Pasquale today after visit Extremities: Warm, well perfused. No lower extremity edema/erythema/tenderness Urine: Lab Results Component Value Date GLUCOSEUR Negative 05/11/2023 KETONESU Negative 05/11/2023 PROTUR 6.3 12/02/2022 Assessment/Plan: 27 y.o. at 37w3d. Problem List HROB: Encounter for supervision of normal in first trimester - Primary Overview *Ludmila for del* 1st Trimester: [x] Dating Criteria: L=2 [...] GTT (24-28wks) wnl 101 [x] Flu Shot (Sep-Mar): 02/24 [x] Tdap (27-36wks): 03/27 [x] Rhogam (if Rh neg): not indicated [] Childbirth classes discussed [] education (colostrum, expected breast changes, plan for RTW) and breast pump ordered [] Second trimester education packet 3rd Trimester: [x] CBC/HIV/RPR/T&S: wnl [] GBS: collected 05/11 [x] GC/CT/Trich (if indicated): N/A [] Final discussion (S2S, Baby Friendly, LC Support, PP experience) [] Third trimester education packet Last visit: [] Last clinic visit SVE: [] IOL start agent: [] Epidural: [] Consents signed: Counseling: [x] Method of delivery: TOLAC [x] Bottle of CHG 4% and hand out provided @ 36wks (if planned) [x] Timing of delivery: 39w IOL [x] MOC: Considering IUD [x] MOF: breast [] COVID-19 vaccine counseling [x] education: completed in all 3 trimesters [x] Casting And Locker Room Servicer: TBD [] Car seat discussed [] PP depression counseling Relevant Orders Group B streptococcal culture Vaginal/Rectal (Completed) HROB: Family Hx Congenital Heart Disease Overview - Pt w/ sister w/ Tetrology of Fallot - Patient and FOB without hx of CHD - Several cousins on maternal side w/ CHD (unknown diagnosis) - S/p low risk counseling at IOB, declined genetic counseling Plan: - Cont exp management HROB: Tobacco use Overview - Reports vaping and cigarette use during - S/p counseling - Discussed picking up nicotine patches, has not yet done so - Pasquale ordered at last visit given continued tobacco use, hx FGR in prior , and fundal height 32 cm at 34w Plan: - Cont to address cessation qVisit - Pasquale after visit today HROB: Maternal varicella, non-immune Overview - Varicella [...] (which is an independent risk factor for [place] in and per literature review) - Previously [...] by cardiology for this . Desires TOLAC. [facility] calculator 63%. S/p counseling. RTC in 1 weeks. Seen and discussed with Dr. Sunshine. Shruthi Keys MD PGY-2, Obstetrics & Gynecology 05/12/23 Cosigned by Lakisha Sunshine MD at 05/13/2023 5:48 PM JUNIOR LEGAL SECRETARY OR LEGAL SECRETARY OR LEGAL SECRETARY Associated attestation - Lakisha Sunshine MD - 05/13/2023 5:48 PM JUNIOR LEGAL SECRETARY I have seen and examined the patient. I agree with the findings and plan of care as documented in the resident/fellow's note. Lakisha Sunshine MD documented in this encounter Plan of Treatment Not on file documented as of this encounter Procedures Procedure Name Priority Date/Time Associated Diagnosis Comments GROUP B STREPTOCOCCUS CULTURE Routine 05/11/2023 3:13 PM JUNIOR LEGAL SECRETARY Encounter for supervision of normal in first trimester, unspecified POCT URINALYSIS (CLINITEK) Routine 05/11/2023 1:01 PM JUNIOR LEGAL SECRETARY documented in this encounter Results * (ABNORMAL) Group B streptococcal culture Vaginal/Rectal (05/11/2023 3:13 PM JUNIOR LEGAL SECRETARY) Report Final Report: Streptococcus agalactiae (Group B Streptococci) * ??* ??* ??* ??* ??* ??* ??* ??* ??* ??* ??* ??* ??* ??* ??* ??* ??* ??* ??* Resistance to penicillin in Group B Streptococcus has not been reported. ??Group B Streptococci are universally susceptible to beta-lactam antibiotics and vancomycin. Routine susceptibility testing is not performed. In penicillin allergic patients, please contact the laboratory at [phone] to request susceptibility testing * ??* ??* ??* ??* ??* ??* ??* ??* ??* ??* ??* ??* ??* ??* ??* ??* ??* ??* ??* (.) [facility] Organism STREPTOCOCCUS AGALACTIAE (GROUP B STREPTOCOCCI) [facility] Vaginal/Rectal 05/11/2023 3: 13 PM JUNIOR LEGAL SECRETARY 05/11/2023 4:34 PM JUNIOR LEGAL SECRETARY Narrative [facility] - 05/13/2023 7:45 AM JUNIOR LEGAL SECRETARY Testing performed by [facility] ([phone]). us Shruthi Keys MD LAB MICROBIOLOGY - GENERAL ORDERABLES Final Result [facility] Department [place] [address] * POCT urinalysis (Clinitek) (05/11/2023 1:01 PM JUNIOR LEGAL SECRETARY) Color, ur, POC Yellow Yellow [facility] Clarity, UA, POC Clear Clear [facility] Glucose, ur, POC Negative Negative [facility] Bilirubin, ur, POC Negative Negative [facility] Ketones, ur, POC Negative Negative [facility] Specific gravity, ur, POC 1.015 1.010 - 1.025 [facility] Blood, ur, POC Negative Negative [facility] pH, ur, POC 6.5 [facility] Comment: Interpretive Data Urine pH is affected by diet, medications, systemic acid-base disturbances, and renal tubular function. pH may affect urinary stone formation. For example, urine pH below 6.0 may help reduce the tendency for calcium phosphate stones and pH greater than 6.0 may reduce the tendency for uric acid stone formation. Source: [employer]. Last Revised Date: 04-23-2017 Protein, ur, POC Negative Negative [facility] Urobilinogen, ur, POC 0.2 mg/dL mg/dL [facility] Nitrites, ur, POC Negative Negative [facility] Leukocyte esterase, ur, POC Negative Negative [facility] Urine 05/11/2023 1:01 PM JUNIOR LEGAL SECRETARY 05/11/2023 1:01 PM JUNIOR LEGAL SECRETARY Shruthi Keys MD LAB POCT ORDERABLES - DEVICE Final Result [facility] Department [place] [address] documented in this encounter Visit Diagnoses Diagnosis Encounter for supervision of normal in first trimester, unspecified - Primary HROB: Family Hx Congenital Heart Disease Unspecified congenital anomaly of heart HROB: History of non-ST elevation myocardial infarction (NSTEMI) HROB: Maternal varicella, non-immune Supervision of other normal HROB: Hx of preeclampsia, prior , currently with other poor obstetric history History of delivery HROB: Tobacco use HROB: Maternal anemia in , antepartum, first trimester documented in this encounter Care Teams Helicopter Pilot Instructor Relationship Specialty Start Date End Date No, Physician PCP - General 11/01/16 documented as of this encounter
--- OUTSIDE RECORDS SUMMARY | 2024-04-02 11:53 | XMS_ITS | Encounter Summary ---
Author Organization [facility] Healthcare Address [address] [place] [address] Care Team Providers Care Supervisor Rough End Name Role Phone No, Physician Primary Care Provider [phone] Encounter Details Date Type Department Care Team (Late st Contact Info) Description 12/08/2022 Telephone Obstetrics and Gynecology Clinic [address] [facility] 3rd [address] [place] [address] Rosnaa Jackson RN Social History Tobacco Use Types Packs/Day Years [...] of Binge Drinking Not on file 08/11 [place] Depression Scale Answer Date Recorded [place] Depression Scale Total 0 07/05/2020 The thought of harming myself has occurred to me . Never 07/05/2020 Comments Yes Sex and Gender Information Value Date Recorded Sex Assigned at Not on file Legal Sex Female 8:40 PM MERCHANDISE FLOW TEAM MEMBER Gender Identity Female 12/02/2022 6:55 PM CDT Sexual Orientation Straight 12/02/2022 6: 55 PM CDT documented as of this encounter Miscellaneous Notes * Telephone Encounter - Rosana Jackson RN - 12/08/2022 10:18 AM CDT Call placed to pt re: HROB appt, verbalizes understanding. documented in this encounter Plan of Treatment Not on file documented as of this encounter Visit Diagnoses Not on filedocumented in this encounter Care Teams Supervisor Rough End Relationship Specialty Start Date End Date No, Physician PCP - General 11/01/16 documented as of this encounter
--- OUTSIDE RECORDS SUMMARY | 2024-04-02 11:53 | XMS_ITS | Encounter Summary ---
Author Organization [facility] Healthcare Address [address] [place] [address] Care Team Providers Care Furnace Mechanic Helper Name Role Phone No, Physician Primary Care Provider [phone] Reason for Referral * Cardiology (Routine) - Closed Specialty Diagnoses / Procedures Referred By Contac t Referred To Contact Diagnoses History of non-ST elevation myocardial infarction (NSTEMI) Procedures Transthoracic Echo (TTE) [place] [address] [place] [address] [address] [place] [address] Phone: tel: fax: [facility] (All Locations) Referral ID Status Reason Start Date Expiration Date Visits Re quested Visits Authorized [id number] Closed 03/17/2023 03/16/2024 1 1 Reason for Visit * Reason Comments High Risk Gestation Encounter Details Date Type Department Care Team (Late st Contact Info) Description 12/30/2022 1:00 PM CDT Initial Obstetrics and Gynecology Clinic [address] [facility] 3rd Floor [address] [place] [address] GA: 18w4d Social History Tobacco Use Types Packs/Day Years [...] the money to buy more. Often true 12/31/19 23 Within the past 12 months, t he food you bought just didn't last and you didn't have money to get more. Often true 12/30/2022 [place] Depression Scale Answer Date Recorded [place] Depression Scale Total 0 07/05/2020 The thought of harming myself has occurred to me . Never 07/05/2020 Comments Yes Sex and Gender Information Value Date Recorded Sex Assigned at Not on file Legal Sex Female 8:40 PM RN TELE Gender Identity Female 12/02/2022 6:55 PM CDT Sexual Orientation Straight 12/02/2022 6: 55 PM CDT documented as of this encounter Last Filed Vital Signs Vital Sign Reading Time Taken Comments Blood Pressure 121/62 12/30/2022 1:17 PM CDT Pulse 84 12/30/2022 1:17 PM CDT Temperature - - Respiratory Rate - - Oxygen Saturation 100% 12/30/2022 1:17 PM CDT Inhaled Oxygen Concentration - - Weight 86.2 kg (190 lb) 12/30/2022 1:17 PM CDT Height - - Body Mass Index 30.67 12/02/2022 1:24 PM CDT documented in this encounter Patient Instructions * Patient Instructions* Conrad Simmons MD - 12/30/2022 1:00 PM CDT Contact us Office hours: Thursday-Thursday 8:30 AM-4:30 PM Phone number: [phone] Daytime: Call us if you have questions [...] medical problem, you can call us at [phone]. Please wait until the clinic is open for non-urgent needs as this emergency line cannot help with appointments, paperwork or prescriptions. If you have an emergency and cannot wait, please call 911 or go to the [facility] Emergency room. If you are having a problem with your or are in labor [facility] (check in near elevator on first floor) [address] [facility], [address]th [place] [address]. documented in this encounter Ordered Prescriptions Prescription Sig Dispense Quantity Refills Last Filled Start Date End Date nicotine (NICODERM CQ) [address] 1 patch on the skin daily 30 patch 12/30/2022 02/19/2023 documented in this encounter Progress Notes * Conrad Simmons MD - 12/30/2022 1:00 PM CDT Initial HROB Visit Date of Visit: 12/30/2022 2:32 PM Author: Conrad Simmons MD Referring Provider: No ref. provider found Brenda Shi is a 27 y.o. at 18w4d by L=2 who is here for consult regarding hx NSTEMI. Her is currently complicated by: #Hx CSx1 (NRFS), hx preE with NSTEMI, family h/o CHD Reports some shortness of breath while at work, feels like it was anxiety. Also had a headache and saw flutters for 2 seconds at that time. Has not happened since. Otherwise denies LOZANO, VC, SOB, RUQpain. Denies chest pain. Taking baby aspirin daily. Patient reports she is still vaping with nicotine and cannabis products daily. She is interested inusing nicotine patches to help with smoking cessation. Mood well controlled. Morning sickness? no movement? no Leakage of fluid? no Vaginal bleeding? no Contractions? no FOB name: Niall Planned ? no Desired ? yes Taking ? yes Taking other meds not yet cleared by OB? no Cats in household? no Job with chemical exposure? yes Xrays in ? no Dating: Working Criteria: L=2 Patient's last menstrual period was 08/22/2022. =>, ESTUARDO: 05/29/23 US Date: 12/02/22, Gest Age 14w5d => ESTUARDO 05/28/23 Obstetric History: OB History Para Term AB Living 2 1 1 1 SAB IAB Ectopic Multiple Live Births 0 1 # Outcome Date GA Lbr Smith/2nd Weight Sex Delivery Anes PTL Lv 2 Current 1 Term 09/28/20 40w1d 3.35 kg (7 lb 6.2 oz) F CS-LTranv EPI N PATRICK Complications: Intolerance Genetic History: [-] Mother's Age > 34 years [-] Sickle Cell Disease or Trait () [-] Thalasemia (Montenegrin, Portuguese, Medit or ; MCV <80) [-] Cliff Sachs Disease (Confucianism, Cajun, Azeri [place]) [-] Down's Syndrome [-] Neural Tube Defects (Meningomyelocele, Spina Bifida or Anencephaly) [-] Other Developmental Delay [-] Cystic Fibrosis [-] Lauren's Chorea [-] Muscular Dystrophy [-] Hemophilia [-] Other Heritable condition Medical History: Past Medical History: Diagnosis Date Depression History of pre-eclampsia Urinary tract infection @MEDUN@ No Known Allergies Surgical History: Past Surgical History: Procedure Laterality Date SECTION, LOW TRANSVERSE EAR SURGERY Family History: Family History Problem Relation Age of Onset Other Father Alive and well; Asthma Mother Asthma; Allergies Maternal Grandmother Allergies; Social History: Social History Social History Narrative Not on file Physical Exam: Vitals: BP 121/62 Pulse 84 Wt 190 lb (86.2 kg) LMP 08/22/2022 SpO2 100% BMI 30.67 kg/m?? General: Well appearing, pleasant female in NAD HEENT: Normocephalic, normal extraocular movements Neck: No thyromegaly or masses Heart: Regular rate and rhythm, no murmurs/gallops/rubs apprecaited Lungs: Clear to auscultation bilaterally, no wheeze or crackles Breasts: Deferred Abdomen: Soft, non-tender, non-distended Extremities: Warm and well perfused, non-tender, no lower extremity edema FHT: present and within normal limits Labs: Lab Results Component Value Date GBS Positive 09/17/2020 US history: (12/02/22) SIUP at 14w5d, EFW 105g Assessment and Plan: Brenda Shi is a 27 y.o. at 18w4d by with complicated by: Problem List Encounter for supervision of normal [...] with patient at RN IOB 2nd Trimester: [] Anatomy ultrasound: scheduled 01/02 [x] CBC: Hgb 9.7 [] 1hr GTT (24-28wks): [] Flu Shot (Sep-Mar): to be offered 01/12 [] Tdap (27-36wks): [...] education: completed in all 3 trimesters [] Log Cooker: [] Car seat discussed [] PP depression [...] History of non-ST elevation myocardial infarction (NSTEMI) - Primary Overview - NSTEMI in last in setting of preeclampsia (which is an independent risk factor for [place] in and per literature review) - Previously [...] 12/30 Relevant Orders Pro B-type natriuretic peptide Hemoglobin analysis by electrophoresis Hemoglobin A1c ECG 12 lead Transthoracic Echo (TTE) Complete W Doppler/CF Maternal anemia in , antepartum, first trimester [...] causes must be evaluatedfor. . Relevant Orders Ferritin Iron profile w/ IBC Labs today: iron panel, ferritin, A1c, BNP Next ultrasound: anatomy 01/02 testing: starting at 32w for hx preE Other tasks: maternal cardiolgy visit 01/12, TTE/EKG RTC in 4 weeks The patient was seen and discussed with Drs. Heath and Nancy Simmons MD [facility] Fellow Attestation I have seen and discussed Brenda Shi with the resident, Dr. Simmons on 12/30/2022. I have evaluated the patient and reviewed the treatment plan and recommendations. I agree with the findings and the plan of care as documented in the resident???s note with the following addendum: Briefly, this is a 27 y.o. at 18w4d with complicated by hx NSTEMI in the setting of preeclampsia with severe features, history of CS, and first degree relative with congenital heart disease. On ASA. Plan for cardiology consult and baseline echo/BNP. RTC 4 weeks. Maxine Heath MD Maternal- Medicine Fellow Cosigned by Prince Cruz MD at 12/30/2022 3:35 PM CDT Associated attestation - Prince Cruz MD - 12/30/2022 3:35 PM CDT I have seen and examined the patient. I agree with the findings and plan of care as documented in the resident/fellow's note. My total encounter time on 12/30/2022 was 40 minutes which was spent in the activities documented in the note. This includes time spent prior to the visit and after the visitin direct care of the patient. This time does not include time spent in any separately reportable services. Will see back in HROB after cardiology consult - can likely transition to resident care then * Tara Lai LCSW - 12/30/2022 1:00 PM CDT Problem: Patient referred by Provider to Social Work for community resources, specifically cafe voucher and transportation. Goal: Cartographic Designer unable to review chart prior to meeting with patient. Patient requested assistance with her MTM ride home and inquired about getting a cafeteria voucher . Patient does not meet criteria for cafe voucher and was advised. SW contacted [facility] and set up return trip for patient. Patient asked about other resources and SW provided information about [place] in [place]. Patient indicated no further questions. Cartographic Designer gave contact information and patient acknowledged they would call/contact Cartographic Designer with any questions or need for additional resources. Cartographic Designer remains available to provide support. MYA Willingham, KHOA Cartographic Designer, vegetable trimmer, Wound, CPAP Clinics 12/30/22 documented in this encounter Plan of Treatment Not on file documented as of this encounter Results * TRANSTHORACIC ECHO (TTE) COMPLETE W DOPPLER/CF WO CONTRAST (03/25/2023 4:16 PM RN TELE) LV EF 54 % CARDIOREPORT Anatomical Region Laterality Modality Ultrasound 03/25/2023 3:00 PM RN TELE Narrative 03/25/2023 5:08 PM RN TELE Patient name: Brenda Shi Date of test: 03/25/2023 Type of test: TTE w/Doppler Hospital #: [id number] Date of : 1995 (F) Foot Cutter: Liana Andrews RDCS Referring Physician: CONRAD SIMMONS MD Contrast Agent: Contrast Administered by: Supervised/Interpreted by: Tavares Valenzuela MD Diagnosis: SOB Location: [facility] Reason for test: hx of non=st elevation [place] MV Structure: Normal, ?MV Motion: Normal, ?? [...] 2=Hypo 3=Akinetic 4=Dyskin./Aneurysm 0=Not visualized) Parasternal Long [place]:MAS=1 BAS=1 MIL=1 DAMIAN=1 Parasternal Short [place]:MAS=1 MIS=1 [place]=1 MIL=1 MAL=1 MA=1 Apical 4 Chambers:=1 MIS=1 BIS=1 BAL=1 MAL=1 AL=1 AC=1 Apical 2 Chambers:AI=1 [place]=1 BI=1 BA=1 MA=1 AA=1 AC=1 LV Global Longitudinal Strain: -20% ??(Normal <-17%) RV Global Longitudinal Strain: -19% ??(Normal <-17%) LV Function: Normal LV Ejection Fraction, ??(EF=54-74%) RV Function: Normal Septal Motion: Pericardial Effusion: none seen Atrial Septum: DOPPLER/COLOR FLOW DOPPLER RESULTS: Diastolic Function: Normal Tricuspid Valve: mild TV regurgitation Pulmonic Valve: Mild DC AV Regurgitation: No AR seen AV Stenosis: AV Area: ??cm2 AV Pressure Gradient (mmHg): Mean: 0, Peak:0 MV Regurgitation: Mild MR MV Stenosis: MV Area: ??cm2 MV Pressure Gradient (mmHg): Mean: 0 MV ERO: ??cm Regurg. Vol.: ??ml/beat Regurg. Frac.: ??% PA Pressure: ??mmHg DOPPLER/COLOR FOLOW DOPPLER COMMENTS: No AR seen, Mild MR, mild TV regurgitation, Mild DC. Diastolic function: Normal SUMMARY: Normal LV systolic [...] MD By signing this report, the attending assistant case manager certifies that he or she has personally supervised and interpreted the echocardiogram and has reviewed and or edited and agrees with the written comments contained within the report. Procedure Note Tavares Valenzuela MD PhD - 03/25/2023 Patient name: Brenda Shi Date of test: 03/25/2023 Type of test: TTE w/Doppler [facility] #: 0 Date of : 1995 (F) Foot Cutter: Liana Andrews RDCS Referring Physician: CONRAD SIMMONS MD Contrast Agent: Contrast Administered by: Supervised/Interpreted by: Tavares Valenzuela MD Diagnosis: SOB Location: [facility] Reason for test: hx of non=st elevation [place] MV Structure: Normal, MV Motion: Normal, Mitral [...] 2=Hypo 3=Akinetic 4=Dyskin./Aneurysm 0=Not visualized) Parasternal Long [place]:MAS=1 BAS=1 MIL=1 DAMIAN=1 Parasternal Short [place]:MAS=1 MIS=1 [place]=1 MIL=1 MAL=1 MA=1 Apical 4 Chambers:=1 MIS=1 BIS=1 BAL=1 MAL=1 AL=1 AC=1 Apical 2 Chambers:AI=1 [place]=1 BI=1 BA=1 MA=1 AA=1 AC=1 LV Global Longitudinal Strain: -20% (Normal <-17%) RV Global Longitudinal Strain: -19% (Normal <-17%) LV Function: Normal LV Ejection Fraction, (EF=54-74%) RV Function: Normal Septal Motion: Pericardial Effusion: none seen Atrial Septum: DOPPLER/COLOR FLOW DOPPLER RESULTS: Diastolic Function: Normal Tricuspid Valve: mild TV regurgitation Pulmonic Valve: Mild DC AV Regurgitation: No AR seen AV Stenosis: AV Area: cm2 AV Pressure Gradient (mmHg): Mean: 0, Peak:0 MV Regurgitation: Mild MR MV Stenosis: MV Area: cm2 MV Pressure Gradient (mmHg): Mean: 0 MV ERO: cm Regurg. Vol.: ml/beat Regurg. Frac.: % PA Pressure: mmHg DOPPLER/COLOR FOLOW DOPPLER COMMENTS: No AR seen, Mild MR, mild TV regurgitation, Mild DC. Diastolic function: Normal SUMMARY: Normal LV systolic [...] MD By signing this report, the attending assistant case manager certifies that he or she has personally supervised and interpreted the echocardiogram and has reviewed and or edited and agrees with the written comments contained within the report. Conrad Simmons MD CV ECHO PROCEDURES Final Result documented in this encounter Visit Diagnoses Diagnosis History of non-ST elevation myocardial infarction (NSTEMI)- Primary Maternal anemia in , antepartum, first trimester Encounter for supervision of normal in first trimester, unspecified Tobacco use Hx of preeclampsia, prior , currently with other poor obstetric history History of non-ST elevation myocardial infarction (NSTEMI) documented in this encounter Care Teams Furnace Mechanic Helper Relationship Specialty Start Date End Date No, Physician PCP - General 11/01/16 documented as of this encounter
--- OUTSIDE RECORDS SUMMARY | 2024-04-02 11:53 | XMS_ITS | Encounter Summary ---
Author Organization [facility] Medical Group Address [address] [facility] [address] [place] [address] Care Team Providers Care Ornamenter Hand Name Role Phone No, Physician Primary Care Provider [phone] Reason for Visit * Reason Onset Date Comments Covid-19 Home Monitoring 04/09/2021 Encounter Details Date Type Department Care Team (Late st Contact Info) Description 04/09/2021 Telephone [facility] Accountable Care Organization [address] [place] [address] Anisa Simmons MA [address] [place] [address] [address] [facility] [address] [place] [address] Covid-19 Home Monitoring Social History Tobacco Use Types Packs/Day Years [...] of Binge Drinking Not on file 08/11 [place] Depression Scale Answer Date Recorded [place] Depression Scale Total 0 07/05/2020 The thought of harming myself has occurred to me . Never 07/05/2020 Comments No Sex and Gender Information Value Date Recorded Sex Assigned at Not on file Legal Sex Female 8:40 PM MULTIMEDIA TECHNICIAN Gender Identity Female 12/02/2022 6:55 PM CDT Sexual Orientation Straight 12/02/2022 6: 55 PM CDT documented as of this encounter Miscellaneous Notes * Telephone Encounter - Anisa Yoder MA - 04/09/2021 10:46 AM CST COVID Home Monitoring Enrollment - No Response This patient was identified as a candidate for the [facility]/ COVID-19 home monitoring program. The patient was contacted via phone for enrollment in the program, but could not be reached to accept or decline. IMEDIA TECHNICIAN documented in this encounter Plan of Treatment Not on file documented as of this encounter Visit Diagnoses Not on filedocumented in this encounter Additional Health Concerns Infection Onset Date Last Indicated Resolved Time COVID19 04/06/2021 04/06/2021 04/20/2021 3:05 AM MULTIMEDIA TECHNICIAN documented as of this encounter Care Teams Ornamenter Hand Relationship Specialty Start Date End Date No, Physician PCP - General 11/01/16 documented as of this encounter
--- OUTSIDE RECORDS SUMMARY | 2024-04-02 11:53 | XMS_ITS | Encounter Summary ---
Author Organization [facility] Healthcare Address [address] [place] [address] Care Team Providers Care Return Agent Name Role Phone No, Physician Primary Care Provider [phone] Encounter Details Date Type Department Care Team (Late st Contact Info) Description 10/24/2022 Telephone Obstetrics and Gynecology Clinic [address] [facility] 3rd Floor [address] [place] [address] Bridget Sanchez RN Social History Tobacco Use Types Packs/Day [...] of Binge Drinking Not on file 08/11 [place] Depression Scale Answer Date Recorded [place] Depression Scale Total 0 07/05/2020 The thought of harming myself has occurred to me . Never 07/05/2020 Comments No Sex and Gender Information Value Date Recorded Sex Assigned at Not on file Legal Sex Female 8:40 PM BLOOD BANK LABORATORY TECHNICIAN Gender Identity Female 12/02/2022 6:55 PM CDT Sexual Orientation Straight 12/02/2022 6: 55 PM CDT documented as of this encounter Miscellaneous Notes * Telephone Encounter - Bridget Sanchez RN - 10/24/2022 1:42 PM CDT Pt contacted to schedule RN IOB. Pt reports LMP 08/22. PMH includes PP pre-e with NSTEMI in G1, pt denies being followed by cardio since event, not on anymedications at this time. RN IOB scheduled for 11/11 and Resident IOB on 11/18. Pt aware no ultrasound will be performed at this visit and no visitors allowed in the room for appointment. Directions given to clinic. WAC precautions given. documented in this encounter Plan of Treatment Not on file documented as of this encounter Visit Diagnoses Not on filedocumented in this encounter Care Teams Return Agent Relationship Specialty Start Date End Date No, Physician PCP - General 11/01/16 documented as of this encounter
--- OUTSIDE RECORDS SUMMARY | 2024-04-02 11:53 | XMS_ITS | Encounter Summary ---
Author Organization [facility] Healthcare Address [address] [place] [address] Care Team Providers Care Steel Die Printer Name Role Phone No, Physician Primary Care Provider [phone] Encounter Details Date Type Department Care Team (Late st Contact Info) Description 02/10/2023 Documentation Obstetrics and Gynecology Clinic [address] [facility] 3rd Floor [address] [place] [address] Tara Lai LCSW Social History [...] money to get more. Often true 01/02/2023 [place] Depression Scale Answer Date Recorded [place] Depression Scale Total 0 07/05/2020 The thought of harming myself has occurred to me . Never 07/05/2020 Comments Yes Sex and Gender Information Value Date Recorded Sex Assigned at Not on file Legal Sex Female 8:40 PM WAXING MACHINE OPERATOR HELPER Gender Identity Female 12/02/2022 6:55 PM CDT Sexual Orientation Straight 12/02/2022 6: 55 PM CDT documented as of this encounter Progress Notes * Tara Lai LCSW - 02/10/2023 1:17 PM CDT Problem: Patient referred to Social Work for assistance with transportation. Goal: Tray Service Worker contacted patient who has [place] insurance. Patient contacted MTM yesterday to arrange transportation for today's appointment but was denied due to insufficient notice. Tray Service Worker notes patient is being [place] and contacted MTM to request transportation. Mary/RD set up round trip transportation for trip scheduled for 02/10/23 at 2:45-3:30pm. Coming from [address] [place] [address], going to [address] [place] [address]. Socia Worker contacted patient and provided update, own contact information. Patient denied further questions or need, thanked Tray Service Worker and call/visit ended. No further action at this time. MYA Willingham LCSW Tray Service Worker PRODUCTION GRAPHIC DESIGNER Clinic, Wound Clinic, CPAP Clinic documented in this encounter Plan of Treatment Not on file documented as of this encounter Visit Diagnoses Not on filedocumented in this encounter Care Teams Steel Die Printer Relationship Specialty Start Date End Date No, Physician PCP - General 11/01/16 documented as of this encounter
--- OUTSIDE RECORDS SUMMARY | 2024-04-02 11:53 | XMS_ITS | Encounter Summary ---
Author Organization [facility] Healthcare Address [address] [place] [address] Care Team Providers Care Senior Director Of Global Commercial Technology Solutions Name Role Phone No, Physician Primary Care Provider [phone] Encounter Details Date Type Department Care Team (Late st Contact Info) Description 12/02/2022 Orders Only Obstetrics and Gynecology Clinic [address] [facility] 3rd Floor [address] [place] [address] Shruthi Keys MD [address] [facility] [address] [place] [address] Social History Tobacco Use Types [...] of Binge Drinking Not on file 08/11 [place] Depression Scale Answer Date Recorded [place] Depression Scale Total 0 07/05/2020 The thought of harming myself has occurred to me . Never 07/05/2020 Comments Yes Sex and Gender Information Value Date Recorded Sex Assigned at Not on file Legal Sex Female 8:40 PM EMPLOYEE DEVELOPMENT MANAGER Gender Identity Female 12/02/2022 6:55 PM CDT Sexual Orientation Straight 12/02/2022 6: 55 PM CDT documented as of this encounter Plan of Treatment Pending Results Name Type Priority Associated Diagnoses Date/Time Pap and High Risk HPV and Genotyping (Cytology Component) Pathology and Cytology Routine 12/02/2022 1:27 PM CDT documented as of this encounter Visit Diagnoses Not on filedocumented in this encounter Care Teams Senior Director Of Global Commercial Technology Solutions Relationship Specialty Start Date End Date No, Physician PCP - General 11/01/16 documented as of this encounter
--- OUTSIDE RECORDS SUMMARY | 2024-04-02 11:53 | XMS_ITS | Encounter Summary ---
Author Organization [facility] Healthcare Address [address] [place] [address] Care Team Providers Care Eyeglass Cutter Name Role Phone No, Physician Primary Care Provider [phone] Reason for Visit * Reason Comments Follow-up Encounter Details Date Type Department Care Team (Late st Contact Info) Description 10/24/2020 2:30 PM CDT Office Visit Obstetrics and Gynecology Clinic [address] [facility] 3rd Floor [address] [place] [address] Giuliana Crisostomo MD [facility] [id number] [place], [place] [id number] Emely Saavedra MD [address] [place] [address] [address] [place], [place] [id number] Encounter for routine follow-up (Primary Dx); Preeclampsia in period Discharge Disposition: Discharge to home or self [...] of Binge Drinking Not on file 08/11 [place] Depression Scale Answer Date Recorded [place] Depression Scale Total 0 07/05/2020 The thought of harming myself has occurred to me . Never 07/05/2020 Comments No Sex and Gender Information Value Date Recorded Sex Assigned at Not on file Legal Sex Female 8:40 PM BLACK PICKLER Gender Identity Female 12/02/2022 6:55 PM CDT Sexual Orientation Straight 12/02/2022 6: 55 PM CDT documented as of this encounter Last Filed Vital Signs Vital Sign Reading Time Taken Comments Blood Pressure 117/68 10/24/2020 4:38 PM CDT Pulse - - Temperature - - Respiratory Rate - - Oxygen Saturation - - Inhaled Oxygen Concentration - - Weight 85.3 kg (188 lb) 10/24/2020 4:38 PM CDT Height - - Body Mass Index 31.28 10/04/2020 12:00 AM CDT documented in this encounter Patient Instructions * Patient Instructions* Emely Saavedra MD - 10/24/2020 2:30 PM CDT Contact us Office hours: Thursday-Thursday 8:30 AM-4:30 PM Phone number: [phone] Daytime: Call us if you have questions [...] medical problem, you can call us at [phone]. Please wait until the clinic is open for non-urgent needs as this emergency line cannot help with appointments, paperwork or prescriptions. If you have an emergency and cannot wait, please call 911 or go to the [facility] Emergency room. If you are having a problem with your or are in labor you can go to the [facility] (check in near elevator on first floor) 1 [facility], 5th [place] [address]. documented in this encounter Discharge Disposition Disposition Code Departure Means Destination Discharge to home or self care documented in this encounter Progress Notes * Emely Saavedra MD - 10/24/2020 2:30 PM CDT Post Visit Note Subjective: Brenda Shi is a 25 y.o. year old female with PMH depression, nicotine use who presents for visit 4 weeks after pCS for NRFS. Patient's course was complicated by readmission POD5 for SOB and found to have preeclampsia w/ NSTEMI likely of demand etiology. Echocardiogram showed regional wall motion abnormalities, cardiac catheterization with angiographically normal coronary arteries. Patient was discharged in stable condition on enalapril 5mg BID, which was uptitrated to 10mg BID due to persistently elevated pressures on remote blood pressure monitoring. She had follow-up with maternal cardiology on 10/12, at which time was found to be doing well with recommendation to continue enalapril and follow-up in 3 months. Patient is continuing to take blood pressures at home, and has noted that in the last week she has been mainly in the 90/60s. Patient asymptomatic, denies headaches, SOB, CP. Delivery type: section complications: see above Menses since delivery? No, still is endorsing daily spotting Feeding: bottle, no breast concerns Mood has been excellent, no concerns Baby girl doing well. Contraception: condoms Last pap with result: 2020 NILM Patient Active Problem List Diagnosis ??? Encounter for supervision of normal in first trimester ??? Family Hx Congenital Heart Disease ??? Tobacco use ??? Marijuana use/Hx ecstasy use ??? Depression ??? Resolved IUGR ??? Maternal varicella, non-immune ??? Vaginal delivery ??? Elevated troponin Past Medical History: Diagnosis Date ??? Depression ??? History of pre-eclampsia ??? Urinary tract infection Past Surgical History: Procedure Laterality Date ??? SECTION, LOW TRANSVERSE ??? EAR SURGERY Social History Socioeconomic History ??? Marital status: Single Spouse name: None ??? Number of children: None ??? Years of education: None ??? Highest education level: None Occupational History ??? None Tobacco Use ??? Smoking status: Former Smoker Packs/day: 0.05 ??? Smokeless tobacco: Never Used ??? Tobacco comment: pt vapes Substance and Sexual Activity ??? Alcohol use: No ??? Drug use: Yes Types: Marijuana Comment: not used in a while per pt ??? Sexual activity: Yes Partners: Male Other Topics Concern ??? None Social History Narrative ??? None Social Determinants of Health Financial Resource Strain: ??? Difficulty of Paying Living Expenses: Food Insecurity: ??? Worried About Running Out of Food in the Last Year: ??? Ran Out of Food in the Last Year: Transportation Needs: ??? Lack of Transportation (Medical): ??? Lack of Transportation (Non-Medical): Physical Activity: ??? Days of Exercise per Week: ??? Minutes of Exercise per Session: Stress: ??? Feeling of Stress : Social Connections: ??? Frequency of Communication with Friends and Family: ??? Frequency of Social Gatherings with Friends and Family: ??? Attends Muslim Services: ??? Active Member of Clubs or Organizations: ??? Attends Club or Organization Meetings: ??? Marital Status: Intimate Partner Violence: ??? Fear of Current or Ex-Partner: ??? Emotionally Abused: ??? Physically Abused: ??? Sexually Abused: Allergies: No Known Allergies Medications: Current Outpatient Medications: ??? acetaminophen 500 mg capsule, Take 2 capsules (1,000 mg total) by mouth every 6 (six) hours, Disp: 120 tablet, Rfl: 3 ??? azelaic acid 15 % gel, APPLY TO FACE TWICE A DAY, Disp: , Rfl: ??? enalapril (VASOTEC) 10 mg tablet, Take 1 tablet (10 mg total) by mouth 2 (two) times a day, Disp: 60 tablet, Rfl: 11 ??? ibuprofen (ADVIL,MOTRIN) 600 mg tablet, Take 1 tablet (600 mg total) by mouth every 6 (six) hours, Disp: 120 tablet, Rfl: 3 ??? PNV with [id number] 27 mg iron- 1 mg tablet, Take 1 tablet by mouth daily, Disp: 60 tablet, Rfl: 3 ??? polyethylene glycol (MIRALAX) 17 gram packet, Take 1 packet (17 g total) by mouth daily as needed for constipation, Disp: 30 packet, Rfl: 3 Objective: BP 117/68 Wt 188 lb (85.3 kg) LMP 12/27/2019 BMI 31.28 kg/m?? Physical Exam: General Appearance: Alert, cooperative, no distress, appears stated age, well developed, well nourished Lungs: Clear to auscultation bilaterally, respirations unlabored Breast Exam: No tenderness, masses, or nipple abnormality Cardiovascular: Regular rate and rhythm Abdomen: Soft, non-tender, bowel sounds active all four quadrants, no masses, no organomegaly, non-distended. Incision well healed, c/d/i. Extremities: Extremities normal, atraumatic, no cyanosis or edema, no clubbing Psychosocial: Normal affect and mood Assessment and Plan: Brenda Shi is a 25 y.o. female who presents for a post visit. #pCS, Incision well healed today on incision check Patient meeting all other milestones Mood has been excellent, reviewed signs of depression Declines contraception today, discussed that return to fertility can happen as soon as 3 weeks , rec contraception if not planning Reviewed return precautions, otherwise can return to clinic in 1 year for WWE #Pre-eclampsia c/b NSTEMI Following with maternal cardiology, currently on enalapril 10mg BID Blood pressures 90/60s at home over last week, BP in clinic today 117/68 Will send message to Dr. Munson about lower Bps Encouraged patient to continue to take daily Bps at home and keep log Emely Saavedra MD 10/24/2020 Cosigned by Sharla Latif MD at 10/29/2020 2:18 PM CDT Associated attestation - Sharla Latif MD - 10/29/2020 2:18 PM CDT I have personally reviewed with Dr. Saavedra the history, physical exam, and proposed treatment planfor the patient. I agree with the above as documented. My additions are: none. documented in this encounter Plan of Treatment Not on file documented as of this encounter Visit Diagnoses Diagnosis Encounter for routine follow-up- Primary Preeclampsia in period documented in this encounter Care Teams Eyeglass Cutter Relationship Specialty Start Date End Date No, Physician PCP - General 11/01/16 documented as of this encounter
--- OUTSIDE RECORDS SUMMARY | 2024-04-02 11:53 | XMS_ITS | Encounter Summary ---
Author Organization [facility] Address [address] [place] [address] Phone Care Team Providers Care Zipper Slide Attacher Name Role Phone No, Physician Primary Care Provider [phone] Encounter Details Date Type Department Care Team (Late st Contact Info) Description 02/19/2023 8:30 AM FITTINGS TIGHTENER Office Visit [facility] Cardiology [address] [facility] 8th [place] [address] [place] [phone] Sammie Schaeffer MD [address] [place] [address] Cardiac risk counseling (Primary Dx); Supervision of high risk in second trimester; History of pre-eclampsia; History of non-ST elevation myocardial infarction (NSTEMI) Social History Tobacco Use Types Packs/Day Years [...] money to get more. Often true 01/02/2023 [place] Depression Scale Answer Date Recorded [place] Depression Scale Total 1 02/24/2023 The thought of harming myself has occurred to me . Never 02/24/2023 Personal Safety Answer Date Recorded Getting School Help Needed Not on file 03/23 Comments Yes Sex and Gender Information Value Date Recorded Sex Assigned at Not on file Legal Sex Female 8:40 PM FITTINGS TIGHTENER Gender Identity Female 12/02/2022 6:55 PM CDT Sexual Orientation Straight 12/02/2022 6: 55 PM CDT documented as of this encounter Last Filed Vital Signs Vital Sign Reading Time Taken Comments Blood Pressure 106/68 02/19/2023 8:31 AM FITTINGS TIGHTENER Pulse 86 02/19/2023 8:31 AM FITTINGS TIGHTENER Temperature - - Respiratory Rate - - Oxygen Saturation 100% 02/19/2023 8:31 AM FITTINGS TIGHTENER Inhaled Oxygen Concentration - - Weight 92.1 kg (203 lb) 02/19/2023 8:31 AM FITTINGS TIGHTENER Height 167.6 cm (5' 6 ) 02/19/2023 8:31 AM FITTINGS TIGHTENER Body Mass Index 32.77 02/19/2023 8:31 AM FITTINGS TIGHTENER documented in this encounter Patient Instructions * Patient Instructions* Marcus Jurado RN - 02/19/2023 8:30 AM FITTINGS TIGHTENER Please call our heart failure office at [phone] with any questions, concerns, or updates. (Marcus, KAMERON) Labs: NT-pro BNP when you go get ECHO Testing: ECHO - will move up date and let you know Follow up in clinic in on June 11, 2023 at 8:30 am via ZOOM INGS TIGHTENER INGS TIGHTENER INGS TIGHTENER documented in this encounter Progress Notes * Margaret Salinas MD - 02/19/2023 8:30 AM CST Images from the original note were not included. Department of Medicine Cardiovascular Division Cardio-Obstetrics INITIAL OFFICE VISIT Date: 02/19/2023 Requesting Physician: Dr. Levi Zambrano MD Reason for Consultation: evaluation Diagnoses: Current , ESTUARDO 05/29/2022 History of preeclampsia NSTEMI Occurred in s/o preeclampsia Peak trop 762 Anemia Tobacco use Chief Complaint: cardiovascular evaluation during History of Present Illness: Today she is 25w6d. has been going smoothly without issues. Last saw Dr. Munson 10/12/2020. She presented 5 days post with worsening severe headache with nausea and vomiting. Trops peaked at 746. Echocardiogram with wall basal inferior hypokinesis and septal flattening, est PASP ~ 40 mmHg, and diastolic dysfunction. Underwent cath due to concern for SCAD, which showed angiographically normal coronary arteries. She was discharged home on enalapril 10 mg BID. with increased dose BP <140/90 mmHg. She took enalapril for only about 2 weeks and her BP went back to normal. Now doesn't take any BP meds. In the years between her pregnancies, no limitations to her activity. She otherwise denies palpitations, shortness of breath, post nocturnal dyspnea, orthopnea, chest pain, dizziness, and syncope. 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 Vaping almost continuously every day Smokes marijuana Allergies: No Known Allergies Current Medications: Current Outpatient Medications on File Prior to Visit Medication Sig Dispense Refill aspirin 81 mg chewable tablet Take 1 tablet (81 mg total) by mouth daily 30 tablet 11 azelaic acid 15 % gel APPLY TO FACE TWICE A DAY PNV with [id number] ( Vitamin Plus Low Iron) 27 mg iron- 1 mg tablet Take 1 tablet by mouth daily 30 tablet 11 acetaminophen 500 mg capsule Take 2 capsules (1,000 mg total) by mouth every 6 (six) hours (Patientnot taking: Reported on 02/19/2023) 120 tablet 3 enalapril (VASOTEC) 10 mg tablet Take 1 tablet (10 mg total) by mouth 2 (two) times a day 60 [id number] ibuprofen (ADVIL,MOTRIN) 600 mg tablet Take 1 tablet (600 mg total) by mouth every 6 (six) hours (Patient not taking: Reported on 02/19/2023) 120 tablet 3 nicotine (NICODERM CQ) [address] 1 patch on the skin daily 30 patch 0 polyethylene glycol (MIRALAX) 17 gram packet Take 1 packet (17 g total) by mouth daily as needed for constipation (Patient not taking: Reported on 02/19/2023) 30 packet 3 No current facility-administered medications on file prior to visit. Physical Examination: Vital signs: Vitals BP 106/68 (BP Location: Left arm, Patient Position: Sitting) Pulse 86 Ht 167.6 cm (5' 6 ) Wt 92.1 kg (203 lb) LMP 08/22/2022 SpO2 100% BMI 32.77 kg/m?? General: No acute distress or discomfort HEENT: Anicteric sclerae, moist mucous membranes, no thyromegaly Cardiovascular: RRR, normal S1, S2, no murmurs, rubs, or gallops. No carotid bruits. JVP not elevated. Lungs: Clear to auscultation bilaterally; no wheezes, rhonchi, or rales Abdomen: Gravid, normoactive bowel sounds, soft, non-tender to palpation, no hepatosplenomegaly Neuro: Alert, oriented, moves all extremities well Skin: No significant rashes/lesions Extremities: No edema, warm and well perfused Psych: Normal mood and affect Diagnostic Studies Labs: Chemistry Lab Results Component Value Date SODIUM 137 12/02/2022 POTASSIUM 3.6 12/02/2022 CHLORIDE 106 12/02/2022 CO2 24 12/02/2022 ANIONGAP 7 12/02/2022 BUNSER 8 12/02/2022 CREATININE 0.61 12/02/2022 GLUCOSE 62 (L) 12/02/2022 URICACID 7.1 (H) 10/03/2020 CALCIUM 8.9 12/02/2022 BILITOT <0.2 12/02/2022 PROTEIN 6.9 02/28/2013 ALBUMIN 3.5 12/02/2022 GFRNAA >90 12/02/2022 ALKPHOS 41 12/02/2022 AST 14 12/02/2022 ALT 12 12/02/2022 MAGNESIUM 4.5 (H) 10/04/2020 Lab Results Component Value Date WBC 5.9 12/02/2022 HGB 11.9 01/02/2023 HCT 30.3 (L) 12/02/2022 MCV 83.3 01/02/2023 LABPLAT 267 12/02/2022 No results found for: INR Lab Results Component Value Date NPROBNP <50 01/02/2023 Lab Results Component Value Date CHOL 169 10/03/2020 TRIG 113 10/03/2020 HDL 76 10/03/2020 LDLCALC 70 10/03/2020 NONHDLCHOL 93 10/03/2020 CHOLHDL 2 10/03/2020 Lab Results Component Value Date HGBA1C 5.6 01/02/2023 EKG: NSR Imagin10/05/2020 [facility] Results: Hemodynamics: : 98/25 mhg LV, Ao: 38/55 Coronary arteries: Right coronary artery:dominant. Angiographically normal Left coronary artery: Left main: normal LCx: non dominant without luminal irregularities LAD: angiographically normal Ramus: angiographically normal Diagnostic impression: Elevated filling pressures No evidence of coronary artery disease or scad Therapeutic recommendations: TR band care 10/04/2020 Echo No prior study for comparison. Moderate LVE with normal wall thickness, septal flattening with basal inferior hypokinesis, overall normal LV systolic function, LVEF 55-60%, and normal LV strain. Indeterminate diastolic function. Normal RV size and systolic function with normal RV strain and no Carreon's sign or 60/60 sign to suggest hemodynamically significant PE. Upper normal LA volume. Normal aorta, RA and IVC. Trace AR and MR. Mild TR. Est. PASP 35-40 mm Hg, assuming an RA pressure of 3 mm Hg. No pericardial effusion. Assessment and Plan: This is a 27F with above PMH notable for preeclampsia c/b NSTEMI who presents to establish care at 25w6d. Overall she is clinically well. Her prior NSTEMI occurred in the setting of preeclampsia. We reviewed the importance of ASA 81mg daily to help prevent preeclampsia and encouraged her to check her BPsa few days a week to ensure her BPs are not rising. If they are rising, she should call our office.We would also like to repeat an echo to ensure stable cardiac function. Specific Recommendations: Maternal Risk Assessment: - CARPREG II: Score: [...] post- recommendations: Post- BP monitoring Follow-up: Post Margaret Salinas MD Clinical Trainer Cosigned by Sammie Schaeffer MD at 03/22/2023 12:38 PM FITTINGS TIGHTENER INGS TIGHTENER Associated attestation - Sammie Schaeffer MD - 03/22/2023 12:38 PM FITTINGS TIGHTENER I personally interviewed and examined the patient on 02/19/2023 and reviewed the case with the resident/fellow. I agree with the assessment and plan as outlined in the note. Likely type II demand NSTEMI related to pre-eclampsia. Aspirin during . Monitor blood pressures. Check echo. documented in this encounter Plan of Treatment Not on file documented as of this encounter Procedures Procedure Name Priority Date/Time Associated Diagnosis Comments ECG 12-LEAD Routine 02/19/2023 8:45 AM FITTINGS TIGHTENER Cardiac risk counseling documented in this encounter Results * ECG 12 lead (02/19/2023 8:45 AM FITTINGS TIGHTENER) Sammie Schaeffer MD ECG ORDERABLES Edited Result - Final documented in this encounter Visit Diagnoses Diagnosis Cardiac risk counseling- Primary Supervision of high risk in second trimester History of pre-eclampsia History of non-ST elevation myocardial infarction (NSTEMI) documented in this encounter Discontinued Medications Medication Sig Discontinue Reason Start Date End Da te enalapril (VASOTEC) 10 mg tablet Take 1 tablet (10 mg total) by mouth 2 (two) times a day 10/12/2020 02/19/2023 nicotine (NICODERM CQ) [address] 1 patch on the skin daily 12/30/2022 02/19/2023 polyethylene glycol (MIRALAX) 17 gram packetIndications:con stipation Take 1 packet (17 g total) by mouth daily as needed for constipation 09/30/2020 02/19/2023 ibuprofen (ADVIL,MOTRIN) 600 mg tabletIndications:Rodeo Performer mps Take 1 tablet (600 mg total) by mouth every 6 (six) hours 09/30/2020 02/19/2023 acetaminophen 500 mg capsuleIndications:Pa in Take 2 capsules (1,000 mg total) by mouth every 6 (six) hours 09/30/2020 02/19/2023 documented as of this encounter Care Teams Zipper Slide Attacher Relationship Specialty Start Date End Date No, Physician PCP - General 11/01/16 documented as of this encounter
--- OUTSIDE RECORDS SUMMARY | 2024-04-02 11:53 | XMS_ITS | Encounter Summary ---
Author Organization [facility] Healthcare Address [address] [place] [address] Care Team Providers Care Sugar Mixer Name Role Phone No, Physician Primary Care Provider [phone] Reason for Referral * Diagnostic Imaging (Routine) - Closed Specialty Diagnoses / Procedures Referred By Riaz t Referred To Contact Diagnoses Encounter for supervision of other normal in first trimester Procedures US Ob 14 Weeks Or Over Shruthi Keys MD [address] [facility] [address] [place] [address] Phone: tel: fax: [facility] (All Locations) Referral ID Status Reason Start Date Expiration Date Visits Re quested Visits Authorized [id number] Closed 12/02/2022 01/01/2024 1 1 Reason for Visit * Reason Comments Initial Visit Encounter Details Date Type Department Care Team (Late st Contact Info) Description 12/02/2022 1:00 PM CDT Initial Obstetrics and Gynecology Clinic [address] [facility] 3rd Floor [address] [place] [address] Shruthi Keys MD [address] [facility] [address] [place] [address] GA: 14w4d Social History Tobacco Use Types Packs/Day Years [...] of Binge Drinking Not on file 08/11 [place] Depression Scale Answer Date Recorded [place] Depression Scale Total 0 07/05/2020 The thought of harming myself has occurred to me . Never 07/05/2020 Comments Yes Sex and Gender Information Value Date Recorded Sex Assigned at Not on file Legal Sex Female 8:40 PM [employer] Gender Identity Female 12/02/2022 6:55 PM CDT Sexual Orientation Straight 12/02/2022 6: 55 PM CDT documented as of this encounter Last Filed Vital Signs Vital Sign Reading Time Taken Comments Blood Pressure 109/46 12/02/2022 1:24 PM CDT Pulse 74 12/02/2022 1:24 PM CDT Temperature - - Respiratory Rate - - Oxygen Saturation 100% 12/02/2022 1:24 PM CDT Inhaled Oxygen Concentration - - Weight 85.3 kg (188 lb 1.6 oz) 12/02/2022 1:24 P M CDT Height 167.6 cm (5' 6 ) 12/02/2022 1:24 PM CDT Body Mass Index 30.36 12/02/2022 1:24 PM CDT documented in this encounter Patient Instructions * Patient Instructions* Shruthi Keys MD - 12/02/2022 1:00 PM CDT Contact us Office hours: Thursday-Thursday 8:30 AM-4:30 PM Phone number: [phone] Daytime: Call us if you have questions [...] medical problem, you can call us at [phone]. Please wait until the clinic is open for non-urgent needs as this emergency line cannot help with appointments, paperwork or prescriptions. If you have an emergency and cannot wait, please call 911 or go to the [facility] Emergency room. If you are having a problem with your or are in labor you can go to the [facility] (check in near elevator on first floor) [address] [facility], [address]th [place] [address]. documented in this encounter Ordered Prescriptions Prescription Sig Dispense Quantity Refills Last Filled Start Date End Date aspirin 81 mg chewable tablet Take 1 tablet (81 mg total) by mouth daily 30 tablet 11 12/02/2022 03/18/2023 PNV with [id number] ( Vitamin Plus Low Iron) 27 mg iron- 1 mg tablet Take 1 tablet by mouth daily 30 tablet 11 12/02/2022 03/18/2023 documented in this encounter Progress Notes * Shruthi Keys MD - 12/02/2022 1:00 PM CDT Images from the original note were not included. OB INITIAL VISIT Steve Shi is a 27 y.o. at Unknown by L=2 who presents for her first OB visit. Patient's last menstrual period was 08/22/2022. is unplanned and desired. complicated by Hx CSx1 (NRFS) and hx preeclampsia with NSTEMI. Last c/b preeclampsia with concurrent NSTEMI, seen by cardiology after . Not seen since 10/2020. Discharged on enalapril 10 bid, decreased to 5 bid . Not taking any antihypertensives now. No chest pain or shortness of breath. Feels this has gone well thus far. Some intermittent epigastric abdominal pain that shoots to the back, no precipitating factors. Currently rates pain 0/10. Also reports some vulvar itching and burning with soaps. Recently changed soap however had tolerated it before. She reports some thick white discharge. Reproductive partner's name: akin Tierney Patient already taking PNV. Nausea/Vomiting: No movement: Not yet Vaginal Bleeding: No LOF: No Contractions/cramping: none Past Medical History: Diagnosis Date Depression History of pre-eclampsia Urinary tract infection Past Surgical History: Procedure Laterality Date SECTION, LOW TRANSVERSE EAR SURGERY OB History Para Term AB Living 2 1 1 0 0 1 SAB IAB Ectopic Multiple Live Births 0 0 0 0 1 # Outcome Date GA Lbr Smith/2nd Weight Sex Delivery Anes PTL Lv 2 Current 1 Term 09/28/20 40w1d 3.35 kg (7 lb 6.2 oz) F CS-LTranv EPI N PATRICK Complications: Intolerance Name: JUDAH SHI Apgar1: 8 Apgar5: 9 MEDICINE TECH History: Pap History:Negative cytology in 02/2020 .No history of abnormal pap. STI History: chlamydia and GC Genetic History: [-] Mother's Age > 34 years [-] Sickle Cell Disease or Trait () [-] Thalasemia (Nepali, Mosotho, Medit or ; MCV <80) [-] Cliff Sachs Disease (Restoration, Cajun, Yakut [place]) [-] Down's Syndrome [-] Neural Tube Defects (Meningomyelocele, Spina Bifida or Anencephaly) [-] Other Developmental Delay [-] Cystic Fibrosis [-] Lauren's Chorea [-] Muscular Dystrophy [-] Hemophilia [-] Other Heritable condition HOME MEDICATIONS : acetaminophen 500 mg capsule aspirin 81 mg chewable tablet azelaic acid 15 % gel enalapril (VASOTEC) 10 mg tablet ibuprofen (ADVIL,MOTRIN) 600 mg tablet PNV with xrpyzcn-gidv-PM ( Vitamin Plus Low Iron) 27 mg iron- 1 mg tablet polyethylene glycol (MIRALAX) 17 gram packet Allergies as of 12/02/2022 (No Known Allergies) Family History Problem Relation Age of Onset Other Father Alive and well; Asthma Mother Asthma; Allergies Maternal Grandmother Allergies; Social History Tobacco Use Smoking status: Former Packs/day: .05 Types: Cigarettes Smokeless tobacco: Never Tobacco comments: pt vapes Substance and Sexual Activity Drug use: Yes Types: Marijuana Comment: not used in a while per pt Sexual activity: Yes Partners: Male Alcohol Use: Not At Risk (08/20/2020) AUDIT-C Frequency of Alcohol Consumption: Never Average Number of Drinks: Not on file Frequency of Binge Drinking: Not on file Cats in household? no Job with chemical exposure? no Physical Exam: BP 109/46 Pulse 74 Ht 167.6 cm (5' 6 ) Wt 188 lb 1.6 oz (85.3 kg) LMP 08/22/2022 SpO2 100% BMI 30.36 kg/m?? General: NAD, mood appropriate Pulmonary: Non-labored Cardiovascular: Regular rate Abdomen: soft, non-tender,gravid. No epigastric or RUQ tenderness. Extremities: Warm and well perfused GENITAL EXAM: External:normal appearing and no lesions Vagina: no lesions, physiologic appearing white discharge Cervix: no lesions Wet prep performed and negative, no evidence of hyphae or clue cells. Labs: Lab Results Component Value Date ABORH A Positive 12/02/2022 IDCOOMB Negative 12/02/2022 SAV22WEIAODU Nonreactive 12/02/2022 LABRPR Nonreactive 12/02/2022 RUBELIGG Reactive 12/02/2022 HEPBSAG Nonreactive 12/02/2022 GBS Positive 09/17/2020 Ultrasound: Indication: confirmation and dating. IUP confirmed on BSUS at today's appointment with Pasquale with EGA 14w6d (ESTUARDO 05/27/23) corresponding toEDD by LMP of 05/29/2023. heart rate: 153 Assessment/Plan: 27 y.o. at 14w4d. Problem List Encounter for supervision of normal in first trimester Overview 1st Trimester: [x] Dating Criteria: L=2 [] Labs: Rh *, Ab *, CBC *, Rubella *, VZV *, HIV *, RPR *, HepBSAg *, Hep C Ab * - ordered 12/02 [] GC/CT/Trich: - ordered 12/02 [] UCx: - ordered 12/02 [x] vitamins [] Genetic Screening: - ordered 12/02 [] CF/SMA carrier screening: - ordered 12/02 [] Hgb electrophoresis: [] Pap: - obtained 12/02 [] EPDS: PNBHS referral (if indicated) [x] ASA at 12 weeks (if indicated) [] DM screening: HgbA1c * (<5.7: no further test until 2T screen, 5.7-6.5: obtain 2h GTT, >6.5: refer to CDP) [] Feeding Preferences: benefits of discussed with patient at RN IOB 2nd Trimester: [] Anatomy ultrasound: - ordered 12/02 [] CBC: [] 1hr GTT (24-28wks): [] Flu Shot (Dec-Mar): [] Tdap (27-36wks): [] Rhogam (if Rh neg): [] Childbirth classes discussed [] education (colostrum, [...] education: completed in all 3 trimesters [] Insurance Premium Auditor: [] Car seat discussed [] PP depression counseling Relevant Orders Type and screen (Completed) HIV 1/2 Antibody plus p24 Antigen Blood (Completed) CBC without differential (Completed) Comprehensive metabolic panel (Completed) Varicella Zoster IgG antibody Blood (Completed) Rubella IgG antibody (Completed) N. gonorrhoeae/C. trachomatis Amplification Vaginal (Completed) Trichomonas vaginalis PCR Vaginal (Completed) Urine culture Urine, clean voided (Completed) Pap with reflex to High Risk HPV and Genotyping (Cytology Component) ThinPrep processing (Molecular component) (Completed) Horizon 4 (SMA, CF, Fragile X, DMD) Panorama Test Full Panel US Ob 14 Weeks Or Over eGFR (Completed) Hepatitis C antibody (Completed) Hepatitis B Surface Antigen (Completed) RPR Blood (Completed) Tobacco use Overview Reports vaping during . I have reviewing with the patient today her tobacco use and its obstetrical implications. Use of tobacco in has been associated with the following adverse outcomes: Spontaneous , labor, delivery, intrauterine growth restriction as well as intrauterine demise. Moreover, children exposed to tobacco smoke are at an increased risk of developing childhood asthma as well as sudden syndrome (SIDS) in the first 6 months of life. I do recommend cessation of tobacco use and have extensively discussed this with the patient, recognizingthat this addiction is rather hard to quit. I have encouraged Steve to utilize the resource of the [facility], whose phone number is [phone]. Hx of preeclampsia, prior , currently Overview [...] 81 mg daily starting after 12 weeks. Baseline metabolic profile and complete blood count and UPC to assess creatinine clearance and total protein. Patient was educated on the signs and symptoms of preeclampsia which can begin as early as 20 weeksgestation. Patient is aware of importance of being compliant with visits to allow blood pressure and urine assessment. Relevant Orders Protein / creatinine ratio, urine, random (Completed) History of non-ST elevation myocardial infarction (NSTEMI) Overview - NSTEMI in last in setting of preeclampsia - previously seen by cardiology, not seen since 2020 - asymptomatic at IOB Plan: - HROB consult for further cardiac considerations during - Can consider cardiology consult Marijuana use during Overview Discussed with patient that current evidence suggests [...] use on infants during and , and inthe absence of such data, cannabis use is discouraged. Vaginal itching Overview Reports vaginal itching after using new [place] soap. Wet prep negative. Discussed proper vulvar hygiene. Plan to return to old Dove body wash and will reassess symptoms atnext visit. Reviewed what to expect from visits and schedule, SAB precautions, where to call, diet andexercise with expected weight gain, medications, and smoking/EtOH. RTC 4 weeks. Patient seen and discussed with Dr. Mora. Shruthi Keys MD Cosigned by Vianey Mora MD at 12/03/2022 5:57 PM CDT Associated attestation - Vianey Mora MD - 12/03/2022 5:57 PM CDT I have seen and examined the patient. I agree with the findings and plan of care as documented in the resident/fellow's note. I reviewed the images and agree with the interpretation. documented in this encounter Plan of Treatment Pending Results Name Type Priority Associated Diagnoses Date /Time Hepatitis C antibody Lab Routine 11/12 3:32 PM CDT Hepatitis B Surface Antigen Lab Routine 12/02/2022 3:32 PM CDT RPR Blood Microbiology Routine 12/02/2022 3 :32 PM CDT Scheduled Orders Name Type Priority Associated Diagnoses Orde r Schedule Horizon 4 (SMA, CF, Fragile X, DMD) Lab Routine Encounter for supervision of other normal in first trimester Expected: 12/02/2022, Expires: 12/03/2023 Panorama Test Full Panel Lab Routine Encounter for supervision of other normal in first trimester Expected: 12/02/2022, Expires: 12/03/2023 documented as of this encounter Procedures Procedure Name Priority Date/Time Associated Diagnosis Comments EGFR Routine 12/02/2022 3:32 PM CDT Encounter for supervision of other normal in first trimester HIV 1/2 ANTIBODY PLUS P24 ANTIGEN Routine 12/02/2022 3:32 PM CDT Encounter for supervision of other normal in first trimester HEPATITIS C ANTIBODY Routine 12/02/2022 3:32 PM CDT Encounter for supervision of other normal in first trimester RUBELLA IGG Routine 12/02/2022 3:32 PM CDT Encounter for supervision of other normal in first trimester RPR Routine 12/02/2022 3:32 PM CDT Encounter for supervision of other normal in first trimester HEPATITIS B SURFACE ANTIGEN Routine 12/02/2022 3:32 PM CDT Encounter for supervision of other normal in first trimester CBC WITHOUT DIFFERENTIAL Routine 12/02/2022 3:32 PM CDT Encounter for supervision of other normal in first trimester HC ANTIBODY SCREEN RBC Routine 3:32 PM CDT Encounter for supervision of other normal in first trimester VARICELLA ZOSTER ANTIBODY, IGG Routine 12/02/2022 3:32 PM CDT Encounter for supervision of other normal in first trimester COMPREHENSIVE METABOLIC PANEL Routine 12/02/2022 3:32 PM CDT Encounter for supervision of other normal in first trimester N. GONORRHOEAE/C. TRACHOMATIS AMPLIFICATION Routine 12/02/2022 2:46 PM CDT Encounter for supervision of other normal in first trimester TRICHOMONAS VAGINALIS PCR Routine 12/02/2022 2:46 PM CDT Encounter for supervision of other normal in first trimester PROTEIN / CREATININE RATIO, URINE, RANDOM Routine 12/02/2022 2:46 PM CDT Hx of preeclampsia, prior , currently URINE CULTURE Routine 12/02/2022 2:46 PM CDT Encounter for supervision of other normal in first trimester POCT URINALYSIS (CLINITEK) Routine 12/02/2022 1:39 PM CDT documented in this encounter Results * US Ob 14 Weeks Or Over (01/02/2023 9:43 AM CDT) Fetus# Fetus1 VIEWPOINT Estimated Weight 268 g&grams VIEWPOINT Placenta Details posterior, Previa-no, no placental masses VIEWPOINT Presentation Vertex VIEWPOINT Anatomical Region Laterality Modality Abdomen N/A Ultrasound 01/02/2023 10:0 4 AM CDT Impressions 01/02/2023 1:10 PM CDT Normal biometry and amniotic fluid. ??Anatomic assessment as above which appeared grossly normal within the limitations of ultrasound, although several structures were limited today due to position. ??Normal adnexa. ??TVCL was long and closed. ?? Narrative Procedure Note Mckenna White MD - 01/02/2023 IMPRESSION: Normal biometry and amniotic fluid. Anatomic assessment as above whichappeared grossly normal within the limitations of ultrasound,although several structures were limited today due to position.Normal adnexa. TVCL was long and closed. Shruthi Keys MD IMG OB US PROCEDURE S Final Result * ThinPrep processing (Molecular component) (12/03/2022 5:37 AM CDT) Pathologist [facility] ThinPrep processing (Molecular component) Specimen received for processing. [facility] Endocervical 12/03/2022 5:37 AM CDT 12/03/2022 11:34 AM CDT Shruthi Keys MD LAB BODY FLUIDS AND STOOLS ORDERABLES Final Result [facility] [place] [address] * RPR Blood (12/02/2022 3:32 PM CDT) Pathologist [facility] RPR Nonreactive Nonreactive [facility] Blood 12/02/2022 3:32 PM CDT 12/02/2022 4:08 PM CDT Shruthi Keys MD LAB MICROBIOLOGY - GENERAL ORDERABLES Final Result Performing Organization Address [facility] de Phone Number [facility] [place] [employer] [place] [address] * Hepatitis B Surface Antigen (12/02/2022 3:32 PM CDT) [facility] HepBsAg Nonreactive Nonreactive [facility] Blood 12/02/2022 3:32 PM CDT 12/02/2022 4:07 PM CDT Shruthi Keys MD LAB MICROBIOLOGY - GENERAL ORDERABLES Final Result Performing Organization Address [facility] [place] [address] * Hepatitis C antibody (12/02/2022 3:32 PM CDT) [facility] Hep C Ab Nonreactive Nonreactive [facility] Comment:Antibodies to HCV no t detected. Does NOT exclude the possibility of recent exposure to HCV. Current interpretive data was last revised on 21 Blood 12/02/2022 3:32 PM CDT 12/02/2022 4:07 PM CDT Shruthi Keys MD LAB MICROBIOLOGY - GENERAL ORDERABLES Final Result Performing Organization Address [facility] [place] [address] * eGFR (12/02/2022 3:32 PM CDT) [facility] eGFR >90 90 - 130 mL/min/1. 73 m2 [facility] Comment: Interpretive Data Reference Interval Normal ?>/= [...] of Race in Diagnosing Kidney Disease, JASN 2020). The CKD-EPI equation should not be used for patients with unstable renal function and has not been validated in children and those over 70. Current interpretive data was last reviewed 2021. Blood 12/02/2022 3:32 PM CDT 12/02/2022 4:20 PM CDT Shruthi Keys MD LAB BLOOD ORDERABLE S Final Result Performing Organization Address City/[facility] Co de Phone Number [facility] Department [place] [employer] [place] [address] * Rubella IgG antibody (12/02/2022 3:32 PM CDT) Rubella IgG Reactive [facility] Comment:Reactive: Results jones ggest response to immunization or prior exposure to the virus. Blood 12/02/2022 3:32 PM CDT 12/02/2022 4:08 PM CDT Shruthi Keys MD LAB MICROBIOLOGY - GENERAL ORDERABLES Final Result Performing Organization Address City/[facility]/ZIP Co de Phone Number [facility] Department [place] [address] * (ABNORMAL) Varicella Zoster IgG antibody Blood (12/02/2022 3:32 PM CDT) Pathologist [facility] VZV IgG Nonreacti ve(A) Reactive [facility] Comment:Non-reactive: No det ectable antibody to Varicella-zoster virus.??Such individuals are presumed to be uninfected and to be susceptible to primary infection. Blood 12/02/2022 3:32 PM CDT 12/02/2022 4:08 PM CDT Shruthi Keys MD LAB MICROBIOLOGY - GENERAL ORDERABLES Final Result [facility] Department [place] [address] * (ABNORMAL) Comprehensive metabolic panel (12/02/2022 3:32 PM CDT) [facility] Sodium 137 135 - 145 mmol/L [facility] Potassium, pl 3.6 3.3 - 4.9 mmol/L [facility] Chloride 106 97 - 110 mmol/L [facility] CO2 24 22 - 32 mmol/L [facility] Anion gap 7 2 - 15 mmol/L [facility] BUN 8 6 - 25 mg/dL [facility] Creatinine 0.61 0.60 - 1.10 mg/dL [facility] Glucose 62(L) 70 - 199 mg/dL [facility] Comment: Interpretive Data Fasting glucose >/= 126 [...] classification and Diagnosis of Diabetes Diabetes Care 2021; 46: S19-S40. Current interpretive data was last revised 2022. Calcium 8.9 8.5 - 10.3 mg/dL [facility] Bilirubin, total <0.2 0.1 - 1.2 mg/dL [facility] Protein, pl 6.2(L) 6.5 - 8.5 g/dL [facility] Albumin 3.5 3.5 - 5.0 g/dL [facility] Alk phos 41 40 - 130 Units/L [facility] ALT 12 7 - 45 Units/L [facility] AST 14 10 - 45 Units/L [facility] Blood 12/02/2022 3:32 PM CDT 12/02/2022 4:05 PM CDT us Shruthi Keys MD LAB BLOOD ORDERABLE S Final Result [facility] Department [place] [address] * (ABNORMAL) CBC without differential (12/02/2022 3:32 PM CDT) WBC 5.9 3.8 - 9.9 K/cumm [facility] Hgb 9.6(L) 11.9 - 15.5 g/dL [facility] Hct 30.3(L) 35.6 - 45.5 % [facility] Plt 267 150 - 400 K/cumm [facility] MPV 10.7 9.1 - 12.3 fL [facility] RBC 3.64(L) 3.90 - 5.20 M/cumm [facility] MCV 83.2 81.3 - 96.4 fL [facility] MCH 26.4(L) 27.1 - 33.3 pg [facility] MCHC 31.7(L) 32.3 - 35.7 g/dL [facility] RDW CV 13.9 11.1 - 14.9 % [facility] RDW SD 42.5 35.7 - 48.1 fL [facility] NRBC abs 0.00 0.00 - 0.01 K/cumm [facility] Blood 12/02/2022 3:32 PM CDT 12/02/2022 4:05 PM CDT Shruthi Keys MD LAB BLOOD ORDERABLE S Final Result Performing Organization Address City/[facility] [place] [address] * HIV 1/2 Antibody plus p24 Antigen Blood (12/02/2022 3:32 PM CDT) [facility] HIV 1/2 ab + p24 ag Nonreactive Nonreactive [facility] Comment:Nonreactive for HIV- 1 antigen and HIV-1/HIV-2 antibodies. No laboratory evidence of HIV infection. If acute HIV infection is suspected, consider testing for HIV-1 RNA. Current interpretive data was last revised on 21. Blood 12/02/2022 3:32 PM CDT 12/02/2022 4:07 PM CDT Shruthi Keys MD LAB MICROBIOLOGY - GENERAL ORDERABLES Final Result Performing Organization Address [facility] Co de Phone Number [facility] [place] [address] * Type and screen (12/02/2022 3:32 PM CDT) [facility] Mitra, indirect Negative [facility] ABO Rh A Positive [facility] Blood 12/02/2022 3:32 PM CDT 12/02/2022 4:08 PM CDT Narrative [facility] - 12/02/2022 4:53 PM CDT Has the patient had Daratumumab or Isatuximab in the past 6 months?->Unknown Shruthi Keys MD LAB BLOOD BANK TEST ORDERABLES Final Result Performing Organization Address City/[facility] [place] [address] * Protein / creatinine ratio, urine, random (12/02/2022 2:46 PM CDT) [facility] Protein, ur, quant 6.3 mg/dL [facility] Comment: Interpretive Data No reference range established. Current interpretive data was last revised 2018. Creatinine Ur 110.8 mg/dL [facility] Comment: Interpretive Data No reference range established. Current interpretive data was last revised 2018. Protein/creatinin e ratio 56.9 0.0 - 180.0 mg/g CR [facility] Urine 12/02/2022 2:46 PM CDT 12/02/2022 4:35 PM CDT Shruthi Keys MD LAB URINE ORDERABLE S Final Result Performing Organization Address [facility] Co de Phone Number [facility] Department [place] [address] * Urine culture Urine, clean voided (12/02/2022 2:46 PM CDT) [facility] Report Final Report: Less than 100,000 colonies/mL (clinically insignificant growth based on current clinical standards) [facility] Organism (CLINICALLY INSIGNIFICANT GROWTH [facility] Urine, clean voided 12/02/2022 2:46 PM CDT 12/02/2022 5:19 PM CDT Narrative [facility] - 12/04/2022 8:19 AM CDT Testing performed by [facility] ([phone]) Shruthi Keys MD LAB MICROBIOLOGY - GENERAL ORDERABLES Final Result Performing Organization Address City/[facility] Co de Phone Number [facility] Department [place] [address] * Trichomonas vaginalis PCR Vaginal (12/02/2022 2:46 PM CDT) [facility] Trichomonas DNA Not Detected Not Detected [facility] Comment: Interpretive Data Testing performed by [facility] Laboratory using Nucleic Acid Amplification with the [employer] Xpert TV Assay. ??This assay detects DNA from Trichomonas vaginalis using Real-Time PCR. ??This test is cleared by the [facility] Food and Drug Administration for endocervical swabs, vaginal swabs, female urine (first-catch), and male urine (first-catch). ??The performance characteristics for these specimen types have been verified by the [facility]. ??Excess blood in specimens may be inhibitory and result in false negative results. ??The performance of this test has not been evaluated in women or individuals less than 18 years of age. Current Interpretive Data was last revised on 2018. Vaginal 12/02/2022 2:46 PM CDT 12/02/2022 4:36 PM CDT Shruthi Keys MD LAB MICROBIOLOGY - GENERAL ORDERABLES Final Result Performing Organization Address [facility] de Phone Number [facility] [place] [address] * N. gonorrhoeae/C. trachomatis Amplification Vaginal (12/02/2022 2:46 PM CDT) C. trachomatis Not Detected Not Detected [facility] N. gonorrhoeae Not Detected Not Detected [facility] Comment: Interpretive Data Testing performed by the [facility]. This assay detects Chlamydia trachomatis and Neisseria gonorrhoeae by nucleic acid amplification testing (NAAT). This test is approved by the [facility] Food and Drug Administration and the performance characteristics have been verified by the laboratory. The performance characteristics of this test have not been evaluated in individuals less than 14 years of age. Current Interpretive Data was last revised on 2018. Vaginal (None) 12/02/2022 2: 46 PM CDT 12/02/2022 4:36 PM CDT Shruthi Keys MD LAB MICROBIOLOGY - GENERAL ORDERABLES Final Result Performing Organization Address [facility] de Phone Number [facility] Department [place] [address] * POCT urinalysis (Clinitek) (12/02/2022 1:39 PM CDT) Color, ur, POC Yellow Yellow [facility] Clarity, UA, POC Clear Clear [facility] Glucose, ur, POC Negative Negative [facility] Bilirubin, ur, POC Negative Negative [facility] Ketones, ur, POC Negative Negative [facility] Specific gravity, ur, POC 1.015 1.010 - 1.025 [facility] Blood, ur, POC Negative Negative [facility] pH, ur, POC 6.0 [facility] Comment: Interpretive Data Urine pH is affected by diet, medications, systemic acid-base disturbances, and renal tubular function. pH may affect urinary stone formation. For example, urine pH below 6.0 may help reduce the tendency for calcium phosphate stones and pH greater than 6.0 may reduce the tendency for uric acid stone formation. Source: [employer]. Last Revised Date: 04-23-2017 Protein, ur, POC Negative Negative [facility] Urobilinogen, ur, POC 0.2 mg/dL mg/dL [facility] Nitrites, ur, POC Negative Negative [facility] Leukocyte esterase, ur, POC Negative Negative [facility] Urine 12/02/2022 1:39 PM CDT 12/02/2022 1:39 PM CDT Shruthi Keys MD LAB POCT ORDERABLES - DEVICE Final Result [facility] Department [place] [address] * Pap with reflex to High Risk HPV and Genotyping (Cytology Component) (12/02/2022 1:27 PM CDT) Thin prep (Pap test) 12/02/2022 1:27 PM CDT 12/02/2022 5:37 PM CDT Narrative PATHOLOGY [facility] - 12/04/2022 2:41 PM CDT EPIC results best viewed via link to PDF [facility] [place] [address] Note to Patients: This report may contain [...] details. CYTOPATHOLOGY REPORT FINAL Patient Name: ??STEVE SHI Gender: ??F : ??1995 (Age: 27) Address: ??[address] [place] [address] ??[id number] [facility] #: ??[id number] Service: ??MEDICINE TECH Location: ?? Patient Type: ??[facility] SPECIMEN Taken: ??12/02/2022 Received: ??12/02/2022 [...] ericka species ? ml/12/04/2022 14:[address] (ASCP) Report Electronically Reviewed and Signed Out By Sheri Mcginnis MS CT (ASCP) 12/04/2022 14:41:52 Cervicovaginal Cytology (Pap Test) Disclaimer: The Pap test is a screening test used to detect cervical cancer and its precursors; it is not a diagnostic procedure. False negative and false positive results do occur. Pap test results should be interpreted in the context of pertinent clinical information and biopsy results as indicated. [facility] Clinical Laboratory Improvement Amendments (CLIA) mandate that cytologic and histologic results be correlated for laboratory director of quality control & improvement standards. ??FOR ALL HIGH-GRADE CASES [...] determined by the Surgical Pathology Department at [facility] as part of an ongoing software quality manager program and in compliance with federally [...] determined by the Surgical Pathology Department of [facility]. ??It has not been cleared or approved by the U. S. Food and Drug Administration. Shruthi Keys MD LAB CYTOLOGY ORDERA BLEAilyn Final Result PATHOLOGY [facility] 3rd Floor [place], [place] [phone] documented in this encounter Visit Diagnoses Diagnosis state, incidental- Primary Encounter for supervision of other normal in first trimester Hx of preeclampsia, prior , currently with other poor obstetric history History of non-ST elevation myocardial infarction (NSTEMI) Tobacco use Marijuana use during Vaginal itching Pruritus of genital organs Encounter for supervision of other normal in first trimester Encounter for supervision of other normal in first trimester documented in this encounter Discontinued Medications Medication Sig Discontinue Reason Start Date End Da te PNV with [id number] 27 mg iron- 1 mg tabletIndications:Vitami n Deficiency Prevention Take 1 tablet by mouth daily 09/30/2020 12/02/2022 documented as of this encounter Care Teams Sugar Mixer Relationship Specialty Start Date End Date No, Physician PCP - General 11/01/16 documented as of this encounter
--- OUTSIDE RECORDS SUMMARY | 2024-04-02 11:53 | XMS_ITS | Encounter Summary ---
Author Organization [facility] Healthcare Address [address] [place] [address] Care Team Providers Care Target Trimmer Name Role Phone No, Physician Primary Care Provider [phone] Reason for Referral * Diagnostic Imaging (Routine) - Closed Specialty Diagnoses / Procedures Referred By Riaz harvey Referred To Contact Diagnoses Tobacco use Hx of preeclampsia, prior , currently History of prior with IUGR Procedures US Ob Follow Up Shruthi Keys MD [address] [facility] [address] [place] [address] Phone: tel: fax: [address] [phone] Referral ID Status Reason Start Date Expiration Date Visits Re quested Visits Authorized [id number] Closed 04/17/2023 05/16/2024 1 1 EXPERT Reason for Visit * Reason Comments Routine Visit Encounter Details Date Type Department Care Team (Late st Contact Info) Description 04/17/2023 2:00 PM MINE EXPERT Office Visit Obstetrics and Gynecology Clinic [address] [facility] 3rd Floor [address] [place] [address] Shruthi Keys MD [address] [facility] [address] [place] [address] Encounter for supervision of normal in first trimester, unspecified (Primary Dx); HROB: History of non-ST elevation myocardial infarction (NSTEMI); HROB: Tobacco use; History of delivery; HROB: Hx of preeclampsia, prior , currently ; History of prior with IUGR Social History Tobacco Use Types Packs/Day Years [...] the money to buy more. Never true 04/17/19 24 Within the past 12 months, t he food you bought just didn't last and you didn't have money to get more. Never true 04/17/2023 [place] Depression Scale Answer Date Recorded [place] Depression Scale Total 1 02/24/2023 The thought of harming myself has occurred to me . Never 02/24/2023 Personal Safety Answer Date Recorded Getting School Help Needed Not on file 03/23 Comments Yes Sex and Gender Information Value Date Recorded Sex Assigned at Not on file Legal Sex Female 8:40 PM MINE EXPERT Gender Identity Female 12/02/2022 6:55 PM CDT Sexual Orientation Straight 12/02/2022 6: 55 PM CDT documented as of this encounter Last Filed Vital Signs Vital Sign Reading Time Taken Comments Blood Pressure 116/58 04/17/2023 2:13 PM MINE EXPERT Pulse 77 04/17/2023 2:13 PM MINE EXPERT Temperature - - Respiratory Rate 18 04/17/2023 2:13 PM MINE EXPERT Oxygen Saturation 100% 04/17/2023 2:13 PM MINE EXPERT Inhaled Oxygen Concentration - - Weight 93.9 kg (207 lb) 04/17/2023 2:13 PM MINE EXPERT Height 167.6 cm (5' 6 ) 04/17/2023 2:13 PM MINE EXPERT Body Mass Index 33.41 04/17/2023 2:13 PM MINE EXPERT documented in this encounter Patient Instructions * Patient Instructions* Shruthi Keys MD - 04/17/2023 2:00 PM MINE EXPERT Contact us Office hours: Thursday-Thursday 8:30 AM-4:30 PM Phone number: [phone] Daytime: Call us if you have questions [...] medical problem, you can call us at [phone]. Please wait until the clinic is open for non-urgent needs as this emergency line cannot help with appointments, paperwork or prescriptions. If you have an emergency and cannot wait, please call 911 or go to the [facility] Emergency room. If you are having a problem with your or are in labor you can go to the [facility] (check in near elevator on first floor) [address] [facility], 5th [place] [address]. EXPERT documented in this encounter Progress Notes * Shruthi Keys MD - 04/17/2023 2:00 PM CST OB RETURN VISIT 04/18/2023 Subjective: Steve Shi is a 27 y.o. at 34w1d who presents for her return OB visit. Hx preE with NSTEMI, family h/o CHD, hxCSx1 (NRFS), varicella NI, tobacco use No complaints today. Denies LOZANO, VC, SOB, RUQ pain, chest pain. Still smoking cigarettes, not yet taking nicotine patches. Not increasing tobacco use in dose or frequency. Reporting some lower abdominal soreness and muscle pulling, agreeable to trying belly band. movement: Yes Vaginal Bleeding: No LOF: No Contractions/cramping: none Objective: Vitals: 04/17/23 1413 BP: 116/58 BP Location: Right arm Patient Position: Sitting Pulse: 77 Resp: 18 SpO2: 100% Weight: 207 lb (93.9 kg) Height: 167.6 cm (5' 6 ) FHR: Present and within normal limits Gen: No acute distress. Abdomen: Soft, nontender, gravid. Fundal Height: 32CM Extremities: Warm, well perfused. No lower extremity edema/erythema/tenderness Urine: Lab Results Component Value Date GLUCOSEUR Negative 04/17/2023 KETONESU Negative 04/17/2023 PROTUR 6.3 12/02/2022 Assessment/Plan: 27 y.o. at 34w1d. Problem List HROB: Encounter for supervision of normal in first trimester - Primary Overview *Ludmila johnson* 1st Trimester: [x] Dating Criteria: L=2 [x] [...] 3rd Trimester: [x] CBC/HIV/RPR/T&S: wnl [] GBS: [x] GC/CT/Trich (if indicated): N/A [] Final discussion (S2S, Baby Friendly, LC Support, PP experience) [] Third trimester education packet Last visit: [] Last clinic visit SVE: [] IOL start agent: [] Epidural: [] Consents signed: Counseling: [x] Method of delivery: TOLAC [] Bottle of CHG 4% and hand out provided @ 36wks (if planned) [] Timing of delivery: [] MOC: Considering IUD [] MOF: [] COVID-19 vaccine counseling [] education: completed in all 3 trimesters [] Biostatistics Professor: [] Car seat discussed [] PP depression counseling HROB: Tobacco use Overview - Reports vaping and cigarette use during - S/p counseling - Discussed picking up nicotine patches, has not yet done so Plan: - Cont to address cessation qVisit - Pasquale ordered this visit given continued tobacco use, hx FGR in prior , and fundal height 32 cm Relevant Orders US Ob Follow Up HROB: Hx of preeclampsia, prior , currently Overview - H/o preeclampsia in her prior complicated by NSTEMI - Baseline labs: CBC/CMP wnl, UPC 0.05 on 12/02 - S/p counseling at IOB - TTE 03/25/23 notable for normal global LV Myocardial longitudinal function and LV strain pattern, mild thickened MV with mild MR. Trace pericardial effusion. Plan: - Cont LD ASA ppx Relevant Orders US Ob Follow Up HROB: History of non-ST elevation myocardial infarction (NSTEMI) Overview - NSTEMI in last in setting of preeclampsia (which is an independent risk factor for [place] in and per literature review) - Previously [...] by cardiology for this . Desires TOLAC. [facility] calculator 63%. Counseled on increased risks of intrapartum compared to scheduled , including increased risk of bleeding and injury to surrounding organs. Discussed benefits of improved recovery from compared to CS. RTC in 2 weeks. Seen and discussed with Dr. Adkins. Shruthi Keys MD PGY-2, Obstetrics & Gynecology 04/18/23 Cosigned by Zenia Adkins MD at 04/19/2023 1:51 PM MINE EXPERT EXPERT EXPERT Associated attestation - Zenia Adkins MD - 04/19/2023 1:51 PM MINE EXPERT I have seen and examined the patient. I agree with the findings and plan of care as documented in resident physician Dr. Keys's note. The decision was made to add a growth US for monitoring, given maternal risk factors of tobacco use, plateau of weight gain from last visit, and FH of 32 cm. Overall weight gain in has been appropriate with 19 lbs of weight gain with BMI 33. Encourage d to continue ASA usage given prior hx of PreE, has had appropriate workup for hx of NSTEMI, and plan for TOLAC which the patient has been counseled for appropriately in clinic. Zenia Adkins MD documented in this encounter Plan of Treatment Not on file documented as of this encounter Procedures Procedure Name Priority Date/Time Associated Diagnosis Comments POCT URINALYSIS (CLINITEK) Routine 04/17/2023 2:18 PM MINE EXPERT documented in this encounter Results * US Ob Follow Up (05/11/2023 1:23 PM MINE EXPERT) Fetus# Fetus1 VIEWPOINT Estimated Weight 2,877 g&grams VIEWPOINT Placenta Details posterior, Previa-no, no placental masses VIEWPOINT Presentation Vertex VIEWPOINT Anatomical Region Laterality Modality Abdomen N/A Ultrasound 05/11/2023 1:28 PM MINE EXPERT Impressions 05/11/2023 2:21 PM MINE EXPERT Interval growth has been normal. ??IUP at 37 weeks + 3 days Narrative Procedure Note Nathaly Gonzalez MD - 05/11/2023 IMPRESSION: Interval growth has been normal. IUP at 37 weeks + 3 days us Shruthi Keys MD IMG OB US PROCEDURE S Final Result * POCT urinalysis (Clinitek) (04/17/2023 2:18 PM MINE EXPERT) Color, ur, POC Yellow Yellow [facility] Clarity, UA, POC Clear Clear [facility] Glucose, ur, POC Negative Negative [facility] Bilirubin, ur, POC Negative Negative [facility] Ketones, ur, POC Negative Negative [facility] Specific gravity, ur, POC 1.015 1.010 - 1.025 [facility] Blood, ur, POC Negative Negative [facility] pH, ur, POC 7.0 [facility] Comment: Interpretive Data Urine pH is affected by diet, medications, systemic acid-base disturbances, and renal tubular function. pH may affect urinary stone formation. For example, urine pH below 6.0 may help reduce the tendency for calcium phosphate stones and pH greater than 6.0 may reduce the tendency for uric acid stone formation. Source: [employer]. Last Revised Date: 04-23-2017 Protein, ur, POC Negative Negative [facility] Urobilinogen, ur, POC 0.2 mg/dL mg/dL [facility] Nitrites, ur, POC Negative Negative [facility] Leukocyte esterase, ur, POC Negative Negative [facility] Urine 04/17/2023 2:18 PM MINE EXPERT 04/17/2023 2:18 PM MINE EXPERT us Shruthi Keys MD LAB POCT ORDERABLES - DEVICE Final Result [facility] [place] [address] documented in this encounter Visit Diagnoses Diagnosis Encounter for supervision of normal in first trimester, unspecified - Primary HROB: History of non-ST elevation myocardial infarction (NSTEMI) HROB: Tobacco use History of delivery HROB: Hx of preeclampsia, prior , currently with other poor obstetric history History of prior with IUGR HROB: Tobacco use HROB: Hx of preeclampsia, prior , currently with other poor obstetric history History of prior with IUGR documented in this encounter Care Teams Target Trimmer Relationship Specialty Start Date End Date No, Physician PCP - General 11/01/16 documented as of this encounter
--- OUTSIDE RECORDS SUMMARY | 2024-04-02 11:53 | XMS_ITS | Encounter Summary ---
Author Organization [facility] Healthcare Address [address] [place] [address] Care Team Providers Care Factorer Name Role Phone No, Physician Primary Care Provider [phone] Encounter Details Date Type Department Care Team (Late st Contact Info) Description 12/05/2022 Telephone [facility] [address] [place] [address] Shruthi Keys MD [address] [facility] [address] [facility] [address] [place], [place] [id number] Social History Tobacco Use Types Packs/Day Years [...] of Binge Drinking Not on file 08/11 [place] Depression Scale Answer Date Recorded [place] Depression Scale Total 0 07/05/2020 The thought of harming myself has occurred to me . Never 07/05/2020 Comments Yes Sex and Gender Information Value Date Recorded Sex Assigned at Not on file Legal Sex Female 8:40 PM LEATHER COLORER Gender Identity Female 12/02/2022 6:55 PM CDT Sexual Orientation Straight 12/02/2022 6: 55 PM CDT documented as of this encounter Miscellaneous Notes * Telephone Encounter - Shruthi Keys MD - 12/05/2022 4:01 PM CDT R2 Update TC to patient to discuss results and next steps in . Patient reports feeling well. Her upper abdominal pain has resolved. She picked up her aspirin and started taking it today. Reviewed PNL results. Hgb 9.7, will plan for iron studies at next visit. Also disclosed need for varivax given varicella nonimmune status. Also discussed HROB consult for NSTEMI iso preeclampsia. Per HROB team, will reach out to patient to schedule appointment. They also recommend maternal cardiology consult. Referral place and patient provided with phone number to schedule appointment. Patient agreeable to this plan and will call to schedule. All questions invited and answered. Shruthi Keys MD PGY-2, Obstetrics & Gynecology 12/05/22 documented in this encounter Plan of Treatment Not on file documented as of this encounter Visit Diagnoses Diagnosis History of non-ST elevation myocardial infarction (NSTEMI)- Primary documented in this encounter Care Teams Factorer Relationship Specialty Start Date End Date No, Physician PCP - General 11/01/16 documented as of this encounter
--- OUTSIDE RECORDS SUMMARY | 2024-04-02 11:53 | XMS_ITS | Encounter Summary ---
Author Organization [facility] Healthcare Address [address] [place] [address] Care Team Providers Care Service Order Expediter Name Role Phone No, Physician Primary Care Provider [phone] Reason for Referral * Diagnostic Imaging (Routine) - Closed Specialty Diagnoses / Procedures Referred By Contac t Referred To Contact Diagnoses Tobacco use Hx of preeclampsia, prior , currently History of prior with IUGR Procedures US Ob Follow Up Shruthi Keys MD [address] [facility] [address] [place] [address] Phone: tel: fax: [address] [phone] Referral ID Status Reason Start Date Expiration Date Visits Re quested Visits Authorized [id number] Closed 04/17/2023 05/16/2024 1 1 BALL CORE MOLDER Reason for Visit * Diagnostic Imaging (Routine) - Closed Specialty Diagnoses / Procedures Referred By Contac t Referred To Contact Diagnoses Tobacco use Hx of preeclampsia, prior , currently History of prior with IUGR Procedures US Ob Follow Up Shruthi Keys MD [address] [facility] [address] [place] [address] Phone: tel: fax: [address] [phone] Referral ID Status Reason Start Date Expiration Date Visits Re quested Visits Authorized [id number] Closed 04/17/2023 05/16/2024 1 1 Encounter Details Date Type Department Care Team (Latest Contact Info) Description 05/11/2023 1:00 PM SOFTBALL CORE MOLDER - 05/11/2023 11:59 PM SOFTBALL CORE MOLDER Hospital Encounter [facility] [address] [facility], 7th Floor, [address] [facility] [place] [address] HROB: Tobacco use; HROB: Hx of preeclampsia, prior , currently ; History of prior with IUGR Discharge Disposition: Discharge to home or self [...] money to get more. Never true 05/11/2023 [place] Depression Scale Answer Date Recorded [place] Depression Scale Total 1 02/24/2023 The thought of harming myself has occurred to me . Never 02/24/2023 Personal Safety Answer Date Recorded Getting School Help Needed Not on file 03/23 Comments Yes Sex and Gender Information Value Date Recorded Sex Assigned at Not on file Legal Sex Female 8:40 PM SOFTBALL CORE MOLDER Gender Identity Female 12/02/2022 6:55 PM CDT Sexual Orientation Straight 12/02/2022 6: 55 PM CDT documented as of this encounter Medications at Time of Discharge aspirin 81 mg chewable tablet Take 1 tablet (81 mg total) by mouth daily 30 tablet 11 03/18/2023 05/25/2023 azelaic acid 15 % gel APPLY TO FACE TWICE A DAY 08/01/2020 05/25/2023 PNV with [id number] ( Vitamin Plus Low Iron) 27 mg [...] Priority Date/Time Associated Diagnosis Comments US OB FOLLOW UP Schedule Routine, Read Routine (OP Routine) 05/11/2023 1:23 PM SOFTBALL CORE MOLDER HROB: Tobacco use HROB: Hx of preeclampsia, prior , currently History of prior with IUGR documented in this encounter Results * US Ob Follow Up (05/11/2023 1:23 PM SOFTBALL CORE MOLDER) Fetus# Fetus1 VIEWPOINT Estimated Weight 2,877 g&grams VIEWPOINT Placenta Details posterior, Previa-no, no placental masses VIEWPOINT Presentation Vertex VIEWPOINT Anatomical Region Laterality Modality Abdomen N/A Ultrasound 05/11/2023 1:28 PM SOFTBALL CORE MOLDER Impressions 05/11/2023 2:21 PM SOFTBALL CORE MOLDER Interval growth has been normal. ??IUP at 37 weeks + 3 days Narrative Procedure Note Nathaly Gonzalez MD - 05/11/2023 IMPRESSION: Interval growth has been normal. IUP at 37 weeks + 3 days us Shruthi Keys MD IMG OB US PROCEDURE S Final Result documented in this encounter Visit Diagnoses Diagnosis HROB: Tobacco use HROB: Hx of preeclampsia, prior , currently with other poor obstetric history History of prior with IUGR documented in this encounter Care Teams Service Order Expediter Relationship Specialty Start Date End Date No, Physician PCP - General 11/01/16 documented as of this encounter
--- OUTSIDE RECORDS SUMMARY | 2024-04-02 11:53 | XMS_ITS | Encounter Summary ---
Author Organization [facility] Address [address] [place] [address] Phone Care Team Providers Care Living Manager Name Role Phone No, Physician Primary Care Provider [phone] Reason for Visit * Reason Onset Date Comments Appointment 10/10/2020 Encounter Details Date Type Department Care Team (Late st Contact Info) Description 10/10/2020 Telephone [facility] Cardiology [address] [facility] Advanced Medicine 8th [place] [address] [place] [address] Rose Christopher Appointment Social History Tobacco Use Types Packs/Day Years [...] of Binge Drinking Not on file 08/11 [place] Depression Scale Answer Date Recorded [place] Depression Scale Total 0 07/05/2020 The thought of harming myself has occurred to me . Never 07/05/2020 Comments No Sex and Gender Information Value Date Recorded Sex Assigned at Not on file Legal Sex Female 8:40 PM TRADE FACILITATOR Gender Identity Female 12/02/2022 6:55 PM CDT Sexual Orientation Straight 12/02/2022 6: 55 PM CDT documented as of this encounter Miscellaneous Notes * Telephone Encounter - Allie Bro - 10/10/2020 11:26 AM CDT SPOKE W/PT, SHE IS AWARE * Telephone Encounter - Rose Christopher - 10/10/2020 11:15 AM CDT Please call and make pt aware that they had to move up apt on 10/12 to 10:10am with . Thank you! documented in this encounter Plan of Treatment Not on file documented as of this encounter Visit Diagnoses Not on filedocumented in this encounter Care Teams Living Manager Relationship Specialty Start Date End Date No, Physician PCP - General 11/01/16 documented as of this encounter
--- OUTSIDE RECORDS SUMMARY | 2024-04-02 11:53 | XMS_ITS | Encounter Summary ---
Author Organization [facility] Healthcare Address [address] [place] [address] Care Team Providers Care Design Draftsman Name Role Phone No, Physician Primary Care Provider [phone] Reason for Visit * Reason Comments COVID-19 EVALUATION Encounter Details Date Type Department Care Team (Late st Contact Info) Description 04/06/2021 11:04 PM FASHION PATTERNMAKER - 04/07/2021 12:01 AM FASHION PATTERNMAKER Emergency [facility] Emergency Department [address] [place] [address] Ramiro Briones MD 1 [facility] 1 [place] [address] COVID (Primary Dx) Discharge Disposition: Discharge to home [...] of Binge Drinking Not on file 08/11 [place] Depression Scale Answer Date Recorded [place] Depression Scale Total 0 07/05/2020 The thought of harming myself has occurred to me . Never 07/05/2020 Comments No Sex and Gender Information Value Date Recorded Sex Assigned at Not on file Legal Sex Female 8:40 PM FASHION PATTERNMAKER Gender Identity Female 12/02/2022 6:55 PM CDT Sexual Orientation Straight 12/02/2022 6: 55 PM CDT documented as of this encounter Last Filed Vital Signs Vital Sign Reading Time Taken Comments Blood Pressure 104/70 04/06/2021 9:25 PM FASHION PATTERNMAKER Pulse 66 04/06/2021 9:25 PM FASHION PATTERNMAKER Temperature 36.1 ??C (97 ??F) 04/06/2021 9:25 PM FASHION PATTERNMAKER Respiratory Rate 15 04/06/2021 9:25 PM FASHION PATTERNMAKER Oxygen Saturation 97% 04/06/2021 9:25 PM FASHION PATTERNMAKER Inhaled Oxygen Concentration - - Weight - - Height - - Body Mass Index - - documented in this encounter Discharge Diagnoses Diagnosis COVID-19 - COVID-19 Depression, unspecified - DEPRESSION, UNSPECIFIED Personal history of urinary (tract) infections - PERSONAL HISTORY OF URINARY (TRACT) INFECTIONS Family history of asthma and other chronic lower respiratory diseases - FAMILY HISTORY OF ASTHMA AND OTHER CHRONIC LOWER RESPIRATORY DISEASES Personal history of nicotine dependence - PERSONAL HISTORY OF NICOTINE DEPENDENCE documented in this encounter Discharge Instructions * Discharge Instructions* Ramiro Briones MD - 04/06/2021 11:37 PM FASHION PATTERNMAKER Drink plenty of fluids as tolerated, take Tylenol ibuprofen as needed for fever and body aches. Return to the ER if having increased shortness of breath. ION PATTERNMAKER * Attachments The following attachments cannot be sent through Care Everywhere. * Coronavirus Disease 2019 (COVID-19)- Overview ([place]) documented in this encounter Medications at Time of Discharge acetaminophen 500 mg capsuleIndicatio ns:Pain Take 2 capsules (1,000 mg total) by mouth every 6 (six) hours 120 tablet 3 09/30/2020 3 azelaic acid 15 % gel APPLY TO FACE TWICE A DAY 08/01/2020 4 enalapril (VASOTEC) 10 mg tablet Take 1 tablet (10 mg total) by mouth 2 (two) times a day 60 tablet 11 10/12/2020 3 ibuprofen (ADVIL,MOTRIN) 600 mg tabletIndication s:Cramps Take 1 tablet (600 mg total) by mouth every 6 (six) hours 120 tablet 3 09/30/2020 3 PNV with [id number] 27 mg iron- 1 mg tabletIndication s:Vitamin Deficiency Prevention Take 1 tablet by mouth daily 60 tablet 3 09/30/2020 3 polyethylene glycol (MIRALAX) 17 gram packetIndication [...] or self care documented in this encounter ED Notes * Ramiro Briones MD - 04/06/2021 11:34 PM CST HPI Chief Complaint Patient presents with ??? COVID-19 EVALUATION 25-year-old with no major medical problems here with the body aches, cough since last couple days. Patient states that she had COVID screen done on 04/03 which was negative. She states her boyfriend is tested positive. She woke up this morning with fever and chills. She denies any shortness of breath. Patient History: Patient Active Problem List Diagnosis Date Noted ??? Elevated troponin 10/03/2020 ??? Vaginal delivery 09/27/2020 ??? Maternal varicella, non-immune 07/26/2020 ??? Resolved IUGR 07/06/2020 ??? Tobacco use 04/09/2020 ??? Marijuana use/Hx ecstasy use 04/09/2020 ??? Depression 04/09/2020 ??? Family Hx Congenital Heart Disease 04/04/2020 ??? Encounter for supervision of normal in first trimester 03/23/2020 Past Medical History: Diagnosis Date ??? Depression ??? History of pre-eclampsia ??? Urinary tract infection Past Surgical History: Procedure Laterality Date ??? SECTION, LOW TRANSVERSE ??? EAR SURGERY Family History Problem Relation Age of Onset ??? Other Father Alive and well; ??? Asthma Mother Asthma; ??? Allergies Maternal Grandmother Allergies; Social History Tobacco Use ??? Smoking status: Former Smoker Packs/day: 0.05 ??? Smokeless tobacco: Never Used ??? Tobacco comment: pt vapes Substance Use Topics ??? Alcohol use: No ??? Drug use: Yes Types: Marijuana Comment: not used in a while per pt Social History Social History Narrative ??? Not on file Review of Systems Review of Systems Constitutional: Positive for fever. Eyes: Negative. Respiratory: Positive for cough. Cardiovascular: Negative. Gastrointestinal: Negative. Genitourinary: Negative. Musculoskeletal: Negative. Skin: Negative. Neurological: Negative. Hematological: Negative. Psychiatric/Behavioral: Negative. Physical Exam ED Triage Vitals [04/06/212124] Temp Pulse Resp BP SpO2 36.1 ??C (97 ??F) 66 15 104/70 97 % Temp src Heart Rate Source Patient Position BP Location FiO2 (%) Temporal -- -- -- -- Physical Exam Vitals and nursing note reviewed. Constitutional: Appearance: Normal appearance. HENT: Head: Normocephalic and atraumatic. Nose: Nose normal. Eyes: Extraocular Movements: Extraocular movements intact. Pupils: Pupils are equal, round, and reactive to light. Cardiovascular: Rate and Rhythm: Normal rate and regular rhythm. Pulses: Normal pulses. Heart sounds: Normal heart sounds. Pulmonary: Effort: Pulmonary effort is normal. Breath sounds: Normal breath sounds. Abdominal: General: Abdomen is flat. Palpations: Abdomen is soft. Tenderness: There is no abdominal tenderness. Musculoskeletal: General: Normal range of motion. Cervical back: Normal range of motion. Skin: General: Skin is warm. Capillary Refill: Capillary refill takes less than 2 seconds. Neurological: General: No focal deficit present. Mental Status: She is alert and oriented to person, place, and time. Results for orders placed or performed during the hospital encounter of 04/06/21 Influenza A/B, RSV, and COVID-19 PCR Nasopharyngeal Specimen: Nasopharyngeal Result Value Ref Range COVID-19 RNA Positive (A) Negative Influenza A RNA Negative Negative Influenza B RNA Negative Negative RSV RNA Negative Negative First COVID-19 test? No Employeed in healthcare? No status? No Group care resident? No Hospitalized? No Is patient in ICU? No Symptomatic as defined by CDC? Yes [facility] ED Course as of 122336 Time: 04/06 2335 Comment: Inform patient about her lab work. Advised her the ER if increased shortness of breath By: Ramiro Briones MD Final diagnoses: COVID Ramiro Briones MD 04/06/212336 Ramiro Briones MD 04/06/212336 ION PATTERNMAKER ION PATTERNMAKER * Salud Salinas RN - 04/06/2021 9:21 PM CST Pt boyfriend had COVID and she has been exposed. Pt has loss of smell and body aches. ION PATTERNMAKER ION PATTERNMAKER documented in this encounter Plan of Treatment Not on file documented as of this encounter Procedures Procedure Name Priority Date/Time Associated Diagnosis Comments INFLUENZA A/B, RSV, AND COVID-19 PCR Routine 04/06/2021 10:39 PM FASHION PATTERNMAKER documented in this encounter Results * (ABNORMAL) Influenza A/B, RSV, and COVID-19 PCR Nasopharyngeal (04/06/2021 10:39 PM FASHION PATTERNMAKER) COVID-19 RNA Positive(A) Negative [facility] (AG) Influenza A RNA Negative Negative [facility] (AG) Influenza B RNA Negative Negative [facility] ([facility]) RSV RNA Negative Negative [facility] (AG) Comment: Interpretive data: This test is performed using the Pulse.ioert Xpress CoV-2/Flu/RSV plus assay. This is a multiplex, real-time reverse transcriptase PCR assay intended for the qualitative detection of nucleic acid from SARS-CoV-2, influenza A, influenza B, and respiratory syncytial virus. This assay has been reviewed by the FDA for Emergency Use Authorization (EUA). The performance characteristics have been verified by the performing laboratory. Results must be considered in the clinical context, and a negative result does not rule out infection. Interpretive Data last revised 2021. First COVID-19 test? No [facility] (AG) Employeed in healthcare? No [facility] ([facility]) status? No [facility] (AG) Group care resident? No [facility] ([facility]) Hospitalized? No [facility] (AG) Is patient in ICU? No [facility] (AG) Symptomatic as defined by CDC? Yes [facility] (AG) Nasopharyngeal 04/06/2021 10 :39 PM FASHION PATTERNMAKER 04/06/2021 10:43 PM FASHION PATTERNMAKER Narrative [facility] (AG) - 04/06/2021 11:33 PM FASHION PATTERNMAKER Date of Symptom Onset->04/06/21 Reason for testing?->Symptomatic (not immunocompromised) Known exposure to confirmed or suspected COVID-19 case?->Yes Ina Leach MD LAB MICROBIOLOGY - GENERAL ORDERABLES Final Result [facility] (AG) 1 [facility] Department [place] [address] documented in this encounter Visit Diagnoses Diagnosis COVID- Primary documented in this encounter Additional Health Concerns Infection Onset Date Last Indicated Resolved Time Exposure, COVID-19 Comment:Added automatically based on COVID19 lab answers indicating exposure risk 04/06/2021 04/06/2021 04/06/2021 11:33 PM FASHION PATTERNMAKER COVID: Suspected 04/06/2021 04/06/2021 04/06/2021 11:33 PM FASHION PATTERNMAKER COVID19 04/06/2021 04/06/2021 04/20/2021 3:05 AM FASHION PATTERNMAKER documented as of this encounter Care Teams Design Draftsman Relationship Specialty Start Date End Date No, Physician PCP - General 11/01/16 documented as of this encounter
--- OUTSIDE RECORDS SUMMARY | 2024-04-02 11:53 | XMS_ITS | Encounter Summary ---
Author Organization [facility] Healthcare Address [address] [place] [address] Care Team Providers Care Acoustic Warfare Analyst Name Role Phone No, Physician Primary Care Provider [phone] Encounter Details Date Type Department Care Team (Late st Contact Info) Description 11/14/2020 Telephone [facility] [address] [facility] 3rd [address] [place] [address] Lu Hagan Social History Tobacco [...] of Binge Drinking Not on file 08/11 [place] Depression Scale Answer Date Recorded [place] Depression Scale Total 0 07/05/2020 The thought of harming myself has occurred to me . Never 07/05/2020 Comments No Sex and Gender Information Value Date Recorded Sex Assigned at Not on file Legal Sex Female 8:40 PM CURBSTONE SETTER Gender Identity Female 12/02/2022 6:55 PM CDT Sexual Orientation Straight 12/02/2022 6: 55 PM CDT documented as of this encounter Miscellaneous Notes * Telephone Encounter - Emely Saavedra MD - 11/14/2020 4:02 PM CDT R2 Update Note Sent return to work note via [employer]. Emely Saavedra MD OBGYN, R2 * Telephone Encounter - Bentley Lu - 11/14/2020 3:51 PM CDT Patient called and stated she she needed a return back to work letter and if you could please give her a call. Patient also stated if you right the letter can you please put it on my chart thanks documented in this encounter Plan of Treatment Not on file documented as of this encounter Visit Diagnoses Not on filedocumented in this encounter Care Teams Acoustic Warfare Analyst Relationship Specialty Start Date End Date No, Physician PCP - General 11/01/16 documented as of this encounter
--- OUTSIDE RECORDS SUMMARY | 2024-04-02 11:53 | XMS_ITS | Encounter Summary ---
Author Organization [facility] Healthcare Address [address] [place] [address] Care Team Providers Care Grounds Caretaker Name Role Phone No, Physician Primary Care Provider [phone] Encounter Details Date Type Department Care Team (Late st Contact Info) Description 10/09/2020 Telephone [facility] [address] [place] [address] Mag Geller MD [address] [facility] [phone] [place] [address] Social History Tobacco Use Types [...] of Binge Drinking Not on file 08/11 [place] Depression Scale Answer Date Recorded [place] Depression Scale Total 0 07/05/2020 The thought of harming myself has occurred to me . Never 07/05/2020 Comments No Sex and Gender Information Value Date Recorded Sex Assigned at Not on file Legal Sex Female 8:40 PM WORK OVER RIG OPERATOR Gender Identity Female 12/02/2022 6:55 PM CDT Sexual Orientation Straight 12/02/2022 6: 55 PM CDT documented as of this encounter Miscellaneous Notes * Telephone Encounter - Mag Geller MD - 10/09/2020 11:22 AM CDT RBPM Reviewed. BP this AM 146/89. Asymptomatic. Enalapril increased to 10 mg BID, to take an extra 5 mg now. Agrees to continue sending BPs via monitoring system. Aware of upcoming visit w/ Dr. Munson on 10/12. Of note, if the patient is unable to be reached at her primary number, I have been able to contact her via: [phone] Mag Geller MD Maternal- Medicine Fellow Department of Obstetrics and Gynecology Pager: [phone] documented in this encounter Plan of Treatment Not on file documented as of this encounter Visit Diagnoses Not on filedocumented in this encounter Care Teams Grounds Caretaker Relationship Specialty Start Date End Date No, Physician PCP - General 11/01/16 documented as of this encounter
--- OUTSIDE RECORDS SUMMARY | 2024-04-02 11:53 | XMS_ITS | Encounter Summary ---
Author Organization [facility] Healthcare Address [address] [place] [address] Care Team Providers Care Clinical Evaluator Name Role Phone No, Physician Primary Care Provider [phone] Encounter Details Date Type Department Care Team (Late st Contact Info) Description 04/02/2023 Documentation [facility] Anesthesia [address] [place] [address] Emily Ho MD [address] [facility] [address] [place] [address] Anesthesia Record Procedure Summary Procedure Name Responsible Anesthesiologist Anesthesia Start Time Anesthesia Stop Time Labor Consult Events No events on file. Meds * Agents No agents on file. * Blood No blood administrations on file. Lines, Drains, and Airways No LDAs on file. documented in this encounter Social History Tobacco [...] you got the money to buy more. Patient declined Within the past 12 months, t he food you bought just didn't last and you didn't have money to get more. Patient declined [place] Depression Scale Answer Date Recorded [place] Depression Scale Total 1 02/24/2023 The thought of harming myself has occurred to me . Never 02/24/2023 Personal Safety Answer Date Recorded Getting School Help Needed Not on file 03/23 Comments Yes Sex and Gender Information Value Date Recorded Sex Assigned at Not on file Legal Sex Female 8:40 PM CUPOLA CHARGER Gender Identity Female 12/02/2022 6:55 PM CDT Sexual Orientation Straight 12/02/2022 6: 55 PM CDT documented as of this encounter Plan of Treatment Not on file documented as of this encounter Visit Diagnoses Not on filedocumented in this encounter Care Teams Clinical Evaluator Relationship Specialty Start Date End Date No, Physician PCP - General 11/01/16 documented as of this encounter
--- OUTSIDE RECORDS SUMMARY | 2024-04-02 11:53 | XMS_ITS | Encounter Summary ---
Author Organization [facility] Healthcare Address [address] [place] [address] Care Team Providers Care Director Of Marketing Communications Name Role Phone No, Physician Primary Care Provider [phone] Encounter Details Date Type Department Care Team (Late st Contact Info) Description 04/02/2023 11:59 PM COMPUTER TRAINER Anesthesia Event [facility] Anesthesia [address] [place] [address] Emily Ho MD [address] [facility] [address] [place] [address] Anesthesia Record Procedure Summary Procedure Name Responsible [...] have money to get more. Patient declined [place] Depression Scale Answer Date Recorded [place] Depression Scale Total 1 02/24/2023 The thought of harming myself has occurred to me . Never 02/24/2023 Personal Safety Answer Date Recorded Getting School Help Needed Not on file 03/23 Comments Yes Sex and Gender Information Value Date Recorded Sex Assigned at Not on file Legal Sex Female 8:40 PM COMPUTER TRAINER Gender Identity Female 12/02/2022 6:55 PM CDT Sexual Orientation Straight 12/02/2022 6: 55 PM CDT documented as of this encounter OR Notes * Anesthesia Preprocedure Evaluation - Emily Ho MD - 04/02/2023 1:43 PM CST Images from the original note were not included. Anesthesia Evaluation Brenda Shi is a 27 y.o. female * No surgery found * HISTORY HPI 27yo who experienced an NSTEMI after her last with peak trop of 762. At that time, echo showed basal inferior wall hypokinesis and septal flattening, est PASP ~ 40 mmHg, and diastolic dysfunction. Underwent cath due to concern for SCAD, which showed angiographically normal coronary arteries Repeat echo was normal other than mildly thickened AV with mild MR. Patient should not have any limitations to neuraxial anesthesia. Patient Active Problem List Diagnosis Date Noted History of delivery 03/27/2023 HROB: Maternal anemia [...] -- 08/01/20 -- ProviderBreezy MD PNV with [id number] ( Vitamin Plus Low Iron) 27 mg iron- 1 mg tablet -- 03/18/23 03/17/24 Giuliana Crisostomo MD Take 1 tablet by mouth daily Notes: Please provide any vitamin with iron and DHA covered by patient's insurance Current Outpatient Medications: aspirin 81 mg chewable tablet azelaic acid 15 % gel PNV with [id number] ( Vitamin Plus Low Iron) 27 mg iron- 1 mg tablet Social History Tobacco Use Smoking Status Former [...] Asthma Mother Asthma; Allergies Maternal Grandmother Allergies; There were no vitals filed for this visit. PT: No results found for requested labs within last 30 days. INR: No results found for requested labs within last 30 days. APTT: No results found for requested labs within last 30 days. Hgb A1C: No results found for requested labs within last 30 days. CBC RBC: 03/27/2023: 4.21 M/cumm RDW: No results found for requested labs within last 30 days. MCHC: 03/27/2023: 31.3 g/dL (L) MCH: 03/27/2023: 26.8 pg (L) MCV: 03/27/2023: 85.7 fL Hct: 03/27/2023: 36.1 % Hgb: 03/27/2023: 11.3 g/dL (L) WBC: 03/27/2023: 8.5 K/cumm MPV: 03/27/2023: 11.5 fL Platelets: 03/27/2023: 222 K/cumm RDW CV: 03/27/2023: 13.8 % RDW Sd: 03/27/2023: 42.7 fL BMP Glucose: No results found for [...] for requested labs within last 30 days. UTER TRAINER documented in this encounter Plan of Treatment Not on file documented as of this encounter Visit Diagnoses Not on filedocumented in this encounter Care Teams Director Of Marketing Communications Relationship Specialty Start Date End Date No, Physician PCP - General 11/01/16 documented as of this encounter
--- OUTSIDE RECORDS SUMMARY | 2024-04-02 11:53 | XMS_ITS | Encounter Summary ---
Author Organization [facility] Address [address] [place] [address] Phone Care Team Providers Care Photo Graphics Librarian Name Role Phone No, Physician Primary Care Provider [phone] Encounter Details Date Type Department Care Team (Late st Contact Info) Description 12/09/2022 Telephone [facility] Cardiology [address] [facility] Advanced Medicine 8th [place] [address] [place] [phone] Sammie Schaeffer MD [address] [place] [address] Social History Tobacco Use Types Packs/Day Years [...] money to get more. Often true 01/02/2023 [place] Depression Scale Answer Date Recorded [place] Depression Scale Total 0 07/05/2020 The thought of harming myself has occurred to me . Never 07/05/2020 Comments Yes Sex and Gender Information Value Date Recorded Sex Assigned at Not on file Legal Sex Female 8:40 PM CORPORATE STRATEGY INTERN Gender Identity Female 12/02/2022 6:55 PM CDT Sexual Orientation Straight 12/02/2022 6: 55 PM CDT documented as of this encounter Miscellaneous Notes * Telephone Encounter - Shania Elmore - 12/10/2022 10:37 AM CDT Spoke with pt. Scheduled to see Dr Schaeffer on DOS 01/12/23 @ 11:00am * Telephone Encounter - Asuncion Mueller - 12/10/2022 9:21 AM CDT Will work thru Work Que * Telephone Encounter - Shania Elmore - 12/09/2022 11:07 AM CDT Laury Referral recvd in W to Dr Schaeffer: I25.2 (ICD-10-CM) - History of non-ST elevation myocardial infarction (NSTEMI) CONRAD SIMMONS Provider comments: at 16w0d with history of preeclampsia c/b NSTEMI Pt was seen by Dr Liliana Munson -NIRAV 10/12/20 Dr Ingram - Brittany - 10/05/20 Please review and advise scheduling. Thank You! documented in this encounter Plan of Treatment Not on file documented as of this encounter Visit Diagnoses Not on filedocumented in this encounter Care Teams Photo Graphics Librarian Relationship Specialty Start Date End Date No, Physician PCP - General 11/01/16 documented as of this encounter
--- OUTSIDE RECORDS SUMMARY | 2024-04-02 11:53 | XMS_ITS | Encounter Summary ---
Author Organization [facility] Healthcare Address [address] [place] [address] Care Team Providers Care Tile Molder Hand Name Role Phone No, Physician Primary Care Provider [phone] Encounter Details Date Type Department Care Team (Late st Contact Info) Description 11/19/2020 Telephone Obstetrics and Gynecology Clinic [address] [facility] 3rd Floor [address] [place] [address] Lu Hagan Social History Tobacco [...] of Binge Drinking Not on file 08/11 [place] Depression Scale Answer Date Recorded [place] Depression Scale Total 0 07/05/2020 The thought of harming myself has occurred to me . Never 07/05/2020 Comments No Sex and Gender Information Value Date Recorded Sex Assigned at Not on file Legal Sex Female 8:40 PM J2EE ANDROID DEVELOPER Gender Identity Female 12/02/2022 6:55 PM CDT Sexual Orientation Straight 12/02/2022 6: 55 PM CDT documented as of this encounter Miscellaneous Notes * Telephone Encounter - Emely Saavedra MD - 11/19/2020 3:35 PM CDT R2 Update Note Updated return to work note sent to patient. Emely Saavedra MD OBGYN, R2 * Telephone Encounter - HaganLu - 11/19/2020 10:00 AM CDT Patient called asking for you to please give her a call regarding her return to work letter please and thanks. documented in this encounter Plan of Treatment Not on file documented as of this encounter Visit Diagnoses Not on filedocumented in this encounter Care Teams Tile Molder Hand Relationship Specialty Start Date End Date No, Physician PCP - General 11/01/16 documented as of this encounter
--- OUTSIDE RECORDS SUMMARY | 2024-04-02 11:53 | XMS_ITS | Encounter Summary ---
Author Organization [facility] Healthcare Address [address] [place] [address] Care Team Providers Care Inspector Scales Name Role Phone No, Physician Primary Care Provider [phone] Encounter Details Date Type Department Care Team (Late st Contact Info) Description 10/24/2022 Telephone Obstetrics and Gynecology Clinic [address] [facility] 3rd Floor [address] [place] [address] Bridget Sanchez RN Social History [...] of Binge Drinking Not on file 08/11 [place] Depression Scale Answer Date Recorded [place] Depression Scale Total 0 07/05/2020 The thought of harming myself has occurred to me . Never 07/05/2020 Comments No Sex and Gender Information Value Date Recorded Sex Assigned at Not on file Legal Sex Female 8:40 PM ADULT EDUCATION MANAGER Gender Identity Female 12/02/2022 6:55 PM CDT Sexual Orientation Straight 12/02/2022 6: 55 PM CDT documented as of this encounter Miscellaneous Notes * Telephone Encounter - Bridget Sanchez RN - 10/24/2022 11:49 AM CDT RN call pt to schedule IOB. Pt at work at this time and requesting a call back at 1330. documented in this encounter Plan of Treatment Not on file documented as of this encounter Visit Diagnoses Not on filedocumented in this encounter Care Teams Inspector Scales Relationship Specialty Start Date End Date No, Physician PCP - General 11/01/16 documented as of this encounter
--- OUTSIDE RECORDS SUMMARY | 2024-04-02 11:53 | XMS_ITS | Encounter Summary ---
Author Organization [facility] Healthcare Address [address] [place] [address] Care Team Providers Care Floor Scraper Name Role Phone No, Physician Primary Care Provider [phone] Reason for Referral * Medication Authorization (Routine) - Pending Review Specialty Diagnoses / Procedures Referred By Riaz harvey Referred To Contact Diagnoses care in third trimester Shruthi Keys MD [address] [facility] [address] [place] [address] [place] [address] Phone: tel: fax: Referral ID Status Reason Start Date Expiration Date V isits Requested Visits Authorized [id number] Pending Review 03/27/2023 04/25/2024 1 1 E RN BSN Reason for Visit * Reason Comments Routine Visit * Medication Authorization (Routine) - Pending Review Specialty Diagnoses / Procedures Referred By Riaz harvey Referred To Contact Diagnoses care in third trimester Shruthi Keys MD [address] [facility] [address] [place] [address] [place] [address] Phone: tel: fax: Referral ID Status Reason Start Date Expiration Date V isits Requested Visits Authorized [id number] Pending Review 03/27/2023 04/25/2024 1 1 Encounter Details Date Type Department Care Team (Late st Contact Info) Description 03/27/2023 3:45 PM NURSE RN BSN Office Visit Obstetrics and Gynecology Clinic [address] [facility] 3rd Floor [address] [place] [address] Shruthi Keys MD [address] [facility] [address] [place], [place] [id number] care in third trimester (Primary Dx); HROB: History of non-ST elevation myocardial infarction (NSTEMI); Encounter for supervision of normal in first trimester, unspecified ; HROB: Hx of preeclampsia, prior , currently ; History of delivery; HROB: Maternal anemia in , antepartum, first trimester; HROB: Tobacco use Social History Tobacco Use Types Packs/Day Years Used Date Smoking Tobacco: Former Vaping Smokeless Tobacco: Current Tobacco Cessation:Ready to Q uit: No; Counseling Given: Not Answered Comments:pt vapes Alcohol [...] have money to get more. Patient declined [place] Depression Scale Answer Date Recorded [place] Depression Scale Total 1 02/24/2023 The thought of harming myself has occurred to me . Never 02/24/2023 Personal Safety Answer Date Recorded Getting School Help Needed Not on file 03/23 Comments Yes Sex and Gender Information Value Date Recorded Sex Assigned at Not on file Legal Sex Female 8:40 PM NURSE RN BSN Gender Identity Female 12/02/2022 6:55 PM CDT Sexual Orientation Straight 12/02/2022 6: 55 PM CDT documented as of this encounter Last Filed Vital Signs Vital Sign Reading Time Taken Comments Blood Pressure 114/59 03/27/2023 3:49 PM NURSE RN BSN Pulse 86 03/27/2023 3:49 PM NURSE RN BSN Temperature - - Respiratory Rate - - Oxygen Saturation 99% 03/27/2023 3:49 PM NURSE RN BSN Inhaled Oxygen Concentration - - Weight 93.6 kg (206 lb 4.8 oz) 03/27/2023 3:49 P M NURSE RN BSN Height - - Body Mass Index 33.3 02/19/2023 8:31 AM NURSE RN BSN documented in this encounter Ordered Prescriptions Prescription Sig Dispense Quantity Refills Last Filled Start Date End Date fluconazole (DIFLUCAN) 150 mg tablet Take 1 tablet (150 mg total) by mouth once for 1 dose Repeat in 7 days if symptoms persist. 2 tablet 03/27/2023 3 documented in this encounter Progress Notes * Shruthi Keys MD - 03/27/2023 3:45 PM CST OB RETURN VISIT 03/29/2023 Subjective: Brenda Shi is a 27 y.o. at 31w2d who presents for her return OB visit. Hx preE with NSTEMI, family h/o CHD, hxCSx1 (NRFS), varicella NI Feels overall well today. Denies LOZANO, VC, SOB, RUQ pain. Reports some intermittent chest pain that spontaneously resolves. Discussed smoking cessation, patient reports probably too late for benefit, discussed significant maternal benefit given cardiac history. Patient has not yet picked up nicotine patches, now agreeable. Thinks she has a yeast infection. movement: Yes Vaginal Bleeding: No LOF: No Contractions/cramping: none Objective: Vitals: 03/27/23 1549 BP: 114/59 Pulse: 86 SpO2: 99% Weight: 206 lb 4.8 oz (93.6 kg) FHR: Present and within normal limits Gen: No acute distress. Abdomen: Soft, nontender, gravid. Fundal Height: 27CM Extremities: Warm, well perfused. No lower extremity edema/erythema/tenderness Urine: Lab Results Component Value Date GLUCOSEUR Negative 03/27/2023 KETONESU Trace (A) 03/27/2023 PROTUR 6.3 12/02/2022 Assessment/Plan: 27 y.o. at 31w2d. Problem List HROB: Encounter for supervision of normal in first trimester Overview *Ludmila for del* 1st Trimester: [x] [...] trimester education packet 3rd Trimester: [] CBC/HIV/RPR/T&S: ordered 03/27 [] GBS: [] GC/CT/Trich (if indicated): [] Final discussion (S2S, Baby Friendly, LC Support, PP experience) [] Third trimester education packet Last visit: [] Last clinic visit SVE: [] IOL start agent: [] Epidural: [] Consents signed: Counseling: [] Method of delivery: interested in TOLAC [] Bottle of CHG 4% and hand out provided @ 36wks (if planned) [] Timing of delivery: [] MOC: [] MOF: [] COVID-19 vaccine counseling [] education: completed in all 3 trimesters [] Log Tumbler: [] Car seat discussed [] PP depression counseling HROB: Tobacco use Overview - Reports vaping during . - S/p counseling - Discussed picking up nicotine patches, has not yet done so Plan: - Cont nicotine patch 7 mg - Cont to address cessation qVisit HROB: Hx of preeclampsia, prior , currently Overview - H/o preeclampsia in her prior complicated by NSTEMI - Baseline labs: CBC/CMP wnl, UPC 0.05 on 12/02 - S/p counseling at IOB - TTE 03/25/23 notable for normal global LV Myocardial longitudinal function and LV strain pattern, mild thickened MV with mild MR. Trace pericardial effusion. Plan: - Cont LD ASA ppx HROB: History of non-ST elevation myocardial infarction (NSTEMI) Overview - NSTEMI in last in setting of preeclampsia (which is an independent risk factor for CA in and per literature review) - Previously [...] post- recommendations: Post- BP monitoring Follow-up: Post Relevant Orders Pro B-type natriuretic peptide (Completed) HROB: Maternal anemia in , antepartum, first trimester Overview - Hgb on IOB labs 9.7 with MCV 83 fL - Hemoglobin electrophoresis with normal pattern for age - Ferritin 30 - Repeat Hgb 11.9 after 4 weeks - S/p counseling Plan: - CBC qTrimester - continue iron supplementation with PNV History of delivery Overview CS in G1 for NRFS remote from delivery (3 cm). Interested in TOLAC. For full counseling at next visit. Cleared by cardiology for . #Yeast infection - rx sent for fluconazole RTC in 2 weeks. Seen and discussed with Dr. Nogueira. Shruthi Keys MD PGY-2, Obstetrics & Gynecology 03/29/23 Cosigned by Yanet Nogueira MD at 03/30/2023 8:20 AM NURSE RN BSN E RN BSN E RN BSN Associated attestation - Yanet Nogueira MD - 03/30/2023 8:20 AM NURSE RN BSN I have seen and examined the patient. I agree with the findings and plan of care as documented in the resident/fellow's note and as discussed with the resident/fellow. Yanet Nogueira MD documented in this encounter Plan of Treatment Not on file documented as of this encounter Procedures Procedure Name Priority Date/Time Associated Diagnosis Comments PRO B-TYPE NATRIURETIC PEPTIDE Routine 03/27/2023 4:44 PM NURSE RN BSN HROB: History of non-ST elevation myocardial infarction (NSTEMI) HIV 1/2 ANTIBODY PLUS P24 ANTIGEN Routine 03/27/2023 4:44 PM NURSE RN BSN care in third trimester RPR Routine 03/27/2023 4:44 PM NURSE RN BSN care in third trimester CBC WITHOUT DIFFERENTIAL Routine 03/27/2023 4:44 PM NURSE RN BSN care in third trimester TYPE AND SCREEN Routine 03/27/2023 4:44 PM NURSE RN BSN care in third trimester POCT URINALYSIS (CLINITEK) Routine 03/27/2023 4:21 PM NURSE RN BSN care in third trimester documented in this encounter Results * Pro B-type natriuretic peptide (03/27/2023 4:44 PM NURSE RN BSN) NT-proBNP <50 <=300 pg/mL [facility] Comment: [...] Interpretive Data Last Revised Date: 2017. Blood 03/27/2023 4:44 PM NURSE RN BSN 03/27/2023 5:09 PM NURSE RN BSN Shruthi Keys MD LAB BLOOD ORDERABLE S Final Result Performing Organization Address City/[facility]/ZIP Co de Phone Number [facility] [place] [address] * Type and screen (03/27/2023 4:44 PM NURSE RN BSN) Pathologist [facility] Mitra, indirect Negative ABO Rh A Positive [facility] Blood 03/27/2023 4:44 PM NURSE RN BSN 03/27/2023 5:25 PM NURSE RN BSN Narrative [facility] [employer] [facility] [employer] [facility] [facility] - 03/27/2023 6:18 PM NURSE RN BSN Has the patient had Daratumumab or Isatuximab in the past 6 months?->Unknown Shruthi Keys MD LAB BLOOD BANK TEST ORDERABLES Final Result Performing Organization Address City/[facility]/ZIP Co de Phone Number [facility] [place] [place] [address] * HIV 1/2 Antibody plus p24 Antigen Blood (03/27/2023 4:44 PM NURSE RN BSN) Pathologist [facility] HIV 1/2 ab + p24 ag Nonreactive Nonreactive [facility] Comment:Nonreactive for HIV- 1 antigen and HIV-1/HIV-2 antibodies. No laboratory evidence of HIV infection. If acute HIV infection is suspected, consider testing for HIV-1 RNA. Current interpretive data was last revised on 21. Blood 03/27/2023 4:44 PM NURSE RN BSN 03/27/2023 5:08 PM NURSE RN BSN Shruthi Keys MD LAB MICROBIOLOGY - GENERAL ORDERABLES Final Result Performing Organization Address City/[facility] Co de Phone Number [facility] [place] [address] * RPR Blood (03/27/2023 4:44 PM NURSE RN BSN) Pathologist [facility] RPR Nonreactive Nonreactive [facility] Blood 03/27/2023 4:44 PM NURSE RN BSN 03/27/2023 5:22 PM NURSE RN BSN Shruthi Keys MD LAB MICROBIOLOGY - GENERAL ORDERABLES Final Result Performing Organization Address [facility] de Phone Number [facility] [place] [address] * (ABNORMAL) CBC without differential (03/27/2023 4:44 PM NURSE RN BSN) Pathologist [facility] WBC 8.5 3.8 - 9.9 K/cumm [facility] Hgb 11.3(L) 11.9 - 15.5 g/dL [facility] Comment: Interpretive Data A reference range for this assay has not been established for patients with an unknown legal sex. Please refer to the laboratory test catalog for established sex-specific reference intervals. Current interpretive data was last revised on 2023. Hct 36.1 35.6 - 45.5 % [facility] Comment: Interpretive Data A reference range for this assay has not been established for patients with an unknown legal sex. Please refer to the laboratory test catalog for established sex-specific reference intervals. Current interpretive data was last revised on 2023. Plt 222 150 - 400 K/cumm [facility] MPV 11.5 9.1 - 12.3 fL [facility] RBC 4.21 3.90 - 5.20 M/cumm [facility] Comment: Interpretive Data A reference range for this assay has not been established for patients with an unknown legal sex. Please refer to the laboratory test catalog for established sex-specific reference intervals. Current interpretive data was last revised on 2023. MCV 85.7 81.3 - 96.4 fL [facility] MCH 26.8(L) 27.1 - 33.3 pg [facility] MCHC 31.3(L) 32.3 - 35.7 g/dL [facility] RDW CV 13.8 11.1 - 14.9 % [facility] RDW SD 42.7 35.7 - 48.1 fL [facility] NRBC abs 0.00 0.00 - 0.01 K/cumm [facility] Blood 03/27/2023 4:44 PM NURSE RN BSN 03/27/2023 5:22 PM NURSE RN BSN us Shruthi Keys MD LAB BLOOD ORDERABLE S Final Result [facility] Department [place] [address] * (ABNORMAL) POCT urinalysis (Clinitek) (03/27/2023 4:21 PM NURSE RN BSN) Color, ur, POC Yellow Yellow [facility] Clarity, UA, POC Clear Clear [facility] Glucose, ur, POC Negative Negative [facility] Bilirubin, ur, POC Negative Negative [facility] Ketones, ur, POC Trace(A) Negative [facility] Specific gravity, ur, POC >=1.030(A) 1.010 - 1.025 [facility] Blood, ur, POC Negative Negative [facility] pH, ur, POC 6.5 [facility] Comment: Interpretive Data Urine pH is affected by diet, medications, systemic acid-base disturbances, and renal tubular function. pH may affect urinary stone formation. For example, urine pH below 6.0 may help reduce the tendency for calcium phosphate stones and pH greater than 6.0 may reduce the tendency for uric acid stone formation. Source: [facility]. Last Revised Date: 04-23-2017 Protein, ur, POC Trace Negative [facility] Urobilinogen, ur, POC 0.2 mg/dL mg/dL [facility] Nitrites, ur, POC Negative Negative [facility] Leukocyte esterase, ur, POC Negative Negative [employer] [facility] [facility] Urine 03/27/2023 4:21 PM NURSE RN BSN 03/27/2023 4:21 PM NURSE RN BSN us Shruthi Keys MD LAB POCT ORDERABLES - DEVICE Final Result [facility] Department [place] [address] documented in this encounter Visit Diagnoses Diagnosis care in third trimester- Primary HROB: History of non-ST elevation myocardial infarction (NSTEMI) Encounter for supervision of normal in first trimester, unspecified HROB: Hx of preeclampsia, prior , currently with other poor obstetric history History of delivery HROB: Maternal anemia in , antepartum, first trimester HROB: Tobacco use documented in this encounter Care Teams Floor Scraper Relationship Specialty Start Date End Date No, Physician PCP - General 11/01/16 documented as of this encounter
--- OUTSIDE RECORDS SUMMARY | 2024-04-02 11:53 | XMS_ITS | Encounter Summary ---
Author Organization [facility] Healthcare Address [address] [place] [address] Care Team Providers Care Chief Transfer And Pumphouse Operator Name Role Phone No, Physician Primary Care Provider [phone] Encounter Details Date Type Department Care Team (Late st Contact Info) Description 11/05/2020 Telephone Obstetrics and Gynecology Clinic [address] [facility] 3rd Floor [address] [place] [address] Princess Durant Social History Tobacco Use Types Packs/Day Years [...] of Binge Drinking Not on file 08/11 [place] Depression Scale Answer Date Recorded [place] Depression Scale Total 0 07/05/2020 The thought of harming myself has occurred to me . Never 07/05/2020 Comments No Sex and Gender Information Value Date Recorded Sex Assigned at Not on file Legal Sex Female 8:40 PM TANNERY WORKER Gender Identity Female 12/02/2022 6:55 PM CDT Sexual Orientation Straight 12/02/2022 6: 55 PM CDT documented as of this encounter Miscellaneous Notes * Telephone Encounter - Princess Durant - 11/05/2020 9:29 AM CDT Patient called in this morning regarding a Return to Work form and would like a f/u call. Please and Thanks documented in this encounter Plan of Treatment Not on file documented as of this encounter Visit Diagnoses Not on filedocumented in this encounter Care Teams Chief Transfer And Pumphouse Operator Relationship Specialty Start Date End Date No, Physician PCP - General 11/01/16 documented as of this encounter
--- OUTSIDE RECORDS SUMMARY | 2024-04-02 11:53 | XMS_ITS | Encounter Summary ---
Author Organization [facility] Healthcare Address [address] [place] [address] Care Team Providers Care Drying Oven Tender Name Role Phone No, Physician Primary Care Provider [phone] Reason for Referral * Diagnostic Imaging (Routine) - Closed Specialty Diagnoses / Procedures Referred By Riaz harvey Referred To Contact Diagnoses Encounter for supervision of other normal in first trimester Procedures US Ob Follow Up Shruthi Keys MD [address] [facility] [address] [place] [address] [place] [address] Phone: tel: fax: [facility] (All Locations) Referral ID Status Reason Start Date Expiration Date Visits Re quested Visits Authorized [id number] Closed 01/02/2023 02/01/2024 1 1 Reason for Visit * Diagnostic Imaging (Routine) - Closed Specialty Diagnoses / Procedures Referred By Riaz harvey Referred To Contact Diagnoses Encounter for supervision of other normal in first trimester Procedures US Ob Follow Up Shruthi Keys MD [address] [facility] [address] [address] Phone: tel: fax: [facility] (All Locations) Referral ID Status Reason Start Date Expiration Date Visits Re quested Visits Authorized [id number] Closed 01/02/2023 02/01/2024 1 1 Encounter Details Date Type Department Care Team (Latest Contact Info) Description 01/21/2023 2:57 PM CDT - 01/21/2023 11:59 PM CDT Hospital Encounter [facility] [address] [facility] [place] [address] Encounter for supervision of other normal in [...] money to get more. Often true 01/02/2023 [place] Depression Scale Answer Date Recorded [place] Depression Scale Total 0 07/05/2020 The thought of harming myself has occurred to me . Never 07/05/2020 Comments Yes Sex and Gender Information Value Date Recorded Sex Assigned at Not on file Legal Sex Female 8:40 PM CHURCH SECRETARY Gender Identity Female 12/02/2022 6:55 PM [...] (six) hours 120 tablet 3 09/30/2020 3 nicotine (NICODERM CQ) [address] 1 patch on the skin daily 30 patch 12/30/2022 3 PNV with [id number] ( Vitamin Plus Low Iron) 27 mg [...] UP Schedule Routine, Read Routine (OP Routine) 01/21/2023 2:57 PM CDT Encounter for supervision of other normal in first trimester documented in this encounter Results * US Ob Follow Up (01/21/2023 2:57 PM CDT) Fetus# Fetus1 VIEWPOINT Placenta Details posterior, Previa-no, no placental masses VIEWPOINT Presentation Vertex VIEWPOINT Anatomical Region Laterality Modality Abdomen N/A Ultrasound 01/21/2023 2:58 PM CDT Impressions 01/21/2023 3:50 PM CDT The anatomical survey was completed today with no anomalies identified.IUP at 21 weeks + 5 days Narrative Procedure Note Nathaly Gonzalez MD - 01/21/2023 IMPRESSION: The anatomical survey was completed today with no anomalies identified.IUPat 21 weeks + 5 days us Shruthi Keys MD IMG OB US PROCEDURE S Final Result documented in this encounter Visit Diagnoses Diagnosis Encounter for supervision of other normal in first trimester documented in this encounter Care Teams Drying Oven Tender Relationship Specialty Start Date End Date No, Physician PCP - General 11/01/16 documented as of this encounter
--- OUTSIDE RECORDS SUMMARY | 2024-04-02 11:53 | XMS_ITS | Encounter Summary ---
Author Organization [facility] Healthcare Address [address] [place] [address] Care Team Providers Care Senior Bi Developer Name Role Phone No, Physician Primary Care Provider [phone] Reason for Referral * Diagnostic Imaging (Routine) - Closed Specialty Diagnoses / Procedures Referred By Riaz t Referred To Contact Diagnoses Encounter for supervision of other normal in first trimester Procedures US Ob Follow Up Shruthi Keys MD [address] [facility] [address] [place] [address] Phone: tel: fax: [facility] (All Locations) Referral ID Status Reason Start Date Expiration Date Visits Re quested Visits Authorized [id number] Closed 01/02/2023 02/01/2024 1 1 * Diagnostic Imaging (Routine) - Closed Specialty Diagnoses / Procedures Referred By Riaz harvey Referred To Contact Diagnoses Encounter for supervision of other normal in first trimester Procedures US Ob 14 Weeks Or Over Shruthi Keys MD [address] [facility] [address] [place] [address] Phone: tel: fax: [facility] (All Locations) Referral ID Status Reason Start Date Expiration Date Visits Re quested Visits Authorized [id number] Closed 12/02/2022 01/01/2024 1 1 Reason for Visit * Diagnostic Imaging (Routine) - Closed Specialty Diagnoses / Procedures Referred By Contac t Referred To Contact Diagnoses Encounter for supervision of other normal in first trimester Procedures US Ob 14 Weeks Or Over Shruthi Keys MD [address] [facility] [address] [place] [address] Phone: tel: fax: [facility] (All Locations) Referral ID Status Reason Start Date Expiration Date Visits Re quested Visits Authorized [id number] Closed 12/02/2022 01/01/2024 1 1 Encounter Details Date Type Department Care Team (Latest Contact Info) Description 01/02/2023 9:43 AM CDT - 01/02/2023 11:59 PM CDT Hospital Encounter [facility] - Ultrasound [facility] [place] [address] Encounter for supervision of other [...] money to get more. Often true 01/02/2023 [place] Depression Scale Answer Date Recorded [place] Depression Scale Total 0 07/05/2020 The thought of harming myself has occurred to me . Never 07/05/2020 Comments Yes Sex and Gender Information Value Date Recorded Sex Assigned at Not on file Legal Sex Female 8:40 PM CHESTNUT TANNER Gender Identity Female 12/02/2022 6:55 PM CDT [...] daily 30 patch 12/30/2022 3 PNV with [id number] ( Vitamin Plus Low Iron) 27 mg [...] Priority Date/Time Associated Diagnosis Comments US OB 14 WEEKS OR OVER Schedule Routine, Read Routine (OP Routine) 01/02/2023 9:43 AM CDT Encounter for supervision of other [...] OB US PROCEDURE S Final Result * US Ob 14 Weeks Or Over [...] position.Normal adnexa. TVCL was long and closed. us Shruthi Keys MD IMG OB US PROCEDURE S Final Result documented in this encounter Visit Diagnoses Diagnosis Encounter for supervision of other normal in first trimester Encounter for supervision of other normal in first trimester documented in this encounter Care Teams Senior Bi Developer Relationship Specialty Start Date End Date No, Physician PCP - General 11/01/16 documented as of this encounter
--- OUTSIDE RECORDS SUMMARY | 2024-04-02 11:53 | XMS_ITS | Encounter Summary ---
Author Organization [facility] Healthcare Address [address] [place] [address] Care Team Providers Care Nerve Specialist Name Role Phone No, Physician Primary Care Provider [phone] Encounter Details Date Type Department Care Team (Late st Contact Info) Description 03/18/2023 Telephone Obstetrics and Gynecology Clinic [address] [facility] 3rd Floor [address] [place] [address] Lu Hagan Social History Tobacco [...] money to get more. Never true 04/17/2023 [place] Depression Scale Answer Date Recorded [place] Depression Scale Total 1 02/24/2023 The thought of harming myself has occurred to me . Never 02/24/2023 Personal Safety Answer Date Recorded Getting School Help Needed Not on file 03/23 Comments Yes Sex and Gender Information Value Date Recorded Sex Assigned at Not on file Legal Sex Female 8:40 PM HYDRO TECHNICIAN Gender Identity Female 12/02/2022 6:55 PM CDT Sexual Orientation Straight 12/02/2022 6: 55 PM CDT documented as of this encounter Miscellaneous Notes * Telephone Encounter - Cherri Moreland RN - 03/18/2023 9:46 AM HYDRO TECHNICIAN Rx resent under Dr. Crisostomo. O TECHNICIAN * Telephone Encounter - Lu Hagan - 03/18/2023 9:35 AM CST Patient called and ask if she can get a call back regarding her insurance not covering her medicinedue to her provider not accepting her insurance please and thanks. O TECHNICIAN documented in this encounter Plan of Treatment Not on file documented as of this encounter Visit Diagnoses Not on filedocumented in this encounter Care Teams Nerve Specialist Relationship Specialty Start Date End Date No, Physician PCP - General 11/01/16 documented as of this encounter
--- OUTSIDE RECORDS SUMMARY | 2024-04-02 11:53 | XMS_ITS | Encounter Summary ---
Author Organization [facility] Address [address] [place] [address] Phone Care Team Providers Care Solidworks Drafter Name Role Phone No, Physician Primary Care Provider [phone] Encounter Details Date Type Department Care Team (Late st Contact Info) Description 10/12/2020 10:10 AM CDT Office Visit [facility] Cardiology [address] [facility] 8th [place] [address] [place] [address] Liliana Munson MD [address] [facility] [address] [place] [address] History of pre-eclampsia (Primary Dx); Essential hypertension; Encounter for counseling regarding contraception Social History Tobacco Use Types Packs/Day Years [...] of Binge Drinking Not on file 08/11 [place] Depression Scale Answer Date Recorded [place] Depression Scale Total 0 07/05/2020 The thought of harming myself has occurred to me . 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 SPECIALIST Gender Identity Female 12/02/2022 6:55 PM CDT Sexual Orientation Straight 12/02/2022 6: 55 PM CDT documented as of this encounter Last Filed Vital Signs Vital Sign Reading Time Taken Comments Blood Pressure 135/89 10/12/2020 11:15 AM CDT Pulse 66 10/12/2020 11:15 AM CDT Temperature 36.6 ??C (97.9 ??F) 10/12/2020 11:15 AM C DT Respiratory Rate - - Oxygen Saturation 100% 10/12/2020 11:15 AM CDT Inhaled Oxygen Concentration - - Weight 87.2 kg (192 lb 3.2 oz) 10/12/2020 11:15 AM CDT Height - - Body Mass Index 31.98 10/04/2020 12:00 AM CDT documented in this encounter Patient Instructions * Patient Instructions* Liliana Munson MD - 10/12/2020 10:10 AM CDT Continue to check blood pressure at least once daily If top blood pressure number is higher than 140 or lower than 100, or your bottom blood pressure number is higher than 90, please call so we can adjust your medication At next appointment, will get labs to check your cholesterol Return in 3 months documented in this encounter Ordered Prescriptions Prescription Sig Dispense Quantity Refills Last Filled Start Date End Date enalapril (VASOTEC) 10 mg tablet Take 1 tablet (10 mg total) by mouth 2 (two) times a day 60 tablet 11 10/12/2020 02/19/2023 documented in this encounter Progress Notes * Liliana Munson MD - 10/12/2020 10:10 AM CDT Images from the original note were not included. Cardiovascular Division, [facility] Provider: Liliana Munson MD Date of Service: 10/12/2020 Patient Name: Brenda Shi : 1995 PROBLEM LIST: 1. preeclampsia 09/2020 a. complicated IUGR 2. NSTEMI due to demand in setting of preeclampsia, 09/2020 a. Echocardiogram with regional wall motion abnormalities, cardiac catheterization with angiographically normal coronary arteries 3. Depression/Anxiety Today I had the pleasure of seeing Brenda Shi at [facility] for preeclampsia and NSTEMI. She presented 5 days post with headache over the last few days that has been aggravated by lights and associated with an elevated blood pressure aswell as nausea and vomiting. In the last two days prior to presentation she noted increasing shortness of breath with exertion and worsening swelling of her legs. No orthopnea, PND, abdominal swelling, palpitations, chest pain and pressure, syncope and pre-syncope. No cough, fevers, chills or sweats. She presented to [facility] ED and was found to be bradycardic with rates in the low 50s with BP 144/72 mmHg. Oxygen saturation was 91% and she was placed on nasal cannula. Initial laboratory evaluation was notable for NT-pro BNP of 1586 and hs-trop of 125. Renal function and electrolytes were within normal limits. HsTnT elevated. EKG was notable for sinus bradycardia with no acute ST segment or T wave changes. CXR notable for no pulmonary edema or consolidations but prominent meri. Her troponin continued trend upward. HsTnI peaked at 746. Echocardiogram with wall basal inferior hypokinesis and septal flattening, est PASP ~ 40 mmHg, and diastolic dysfunction. She was started on a heparin gtt and underwent a cardiac cath due to concern for SCAD. Cath with angiographically normal coronary arteries. Her symptoms resolved with diuresis. She was discharged home on enalapril 5 mg BID which was increased to 10 mg BID. with increased dose BP <140/90 mmHg. She was having headaches in the morning, but that has improved significantly with increasing her dose. She feels well today. Reports dry cough usually in sleep for a few minutes, no orthopnea, pnd, no edema. Not PAST MEDICAL HISTORY Past Medical History: Diagnosis Date ??? Depression ??? Urinary tract infection PAST OBSTETRIC HISTORY preeclampsia and NSTEMI 09/2020 MEDICATIONS Current Outpatient Medications Medication Sig Dispense Refill ??? acetaminophen 500 mg capsule Take 2 capsules (1,000 mg total) by mouth every 6 (six) hours 120 tablet 3 ??? azelaic acid 15 % gel APPLY TO FACE TWICE A DAY ??? enalapril (VASOTEC) 5 mg tablet Take 1 tablet (5 mg total) by mouth 2 (two) times a day 60 tablet 11 ??? ibuprofen (ADVIL,MOTRIN) 600 mg tablet Take 1 tablet (600 mg total) by mouth every 6 (six) hours 120 tablet 3 ??? nicotine (NICODERM CQ) [address] 1 patch on the skin daily 30 patch 0 ??? PNV with [id number] 27 mg iron- 1 mg tablet Take 1 tablet by mouth daily 60 tablet 3 ??? polyethylene glycol (MIRALAX) 17 gram packet Take 1 packet (17 g total) by mouth daily as needed for constipation 30 packet 3 ??? 28 mg iron- 800 mcg tablet Take 1 tablet by mouth daily ??? terconazole (TERAZOL 3) 80 mg vaginal suppository Insert 80 mg into the vagina nightly ??? oxyCODONE (ROXICODONE) 5 mg immediate release tablet Take 1 tablet (5 mg total) by mouth every 4 (four) hours as needed for pain (Patient not taking: Reported on 10/12/2020) 20 tablet 0 ??? sertraline (ZOLOFT) 50 mg tablet Take 1 tablet (50 mg total) by mouth daily 30 tablet 5 No current facility-administered medications for this visit. ALLERGY Patient has no known allergies. FAMILY HISTORY family history includes Allergies in her maternal grandmother; Asthma in her mother; Other in her father. SOCIAL HISTORY Smoking history: + tobacco use Alcohol use: rare Drug use: marijuana Employment: Exercise: sedentary Barriers to care: none REVIEW OF SYSTEMS: Review of systems per HPI and otherwise all other review of systems negative. PHYSICAL EXAM: BP 135/89 (BP Location: Left arm, Patient Position: Sitting) Pulse 66 Temp 36.6 ??C (97.9 ??F) Wt 87.2 kg (192 lb 3.2 oz) LMP 12/27/2019 SpO2 100% BMI 31.98 kg/m?? Vital signs, weight, and intake/output reviewed. Gen: well developed, well nourished, no acute distress HEENT: moist mucus membranes, no jugular venous distension, no carotid bruits Chest: Lungs clear to auscultation bilaterally Cardiac: Regular rate and rhythm, no murmurs/gallops/rubs Abdomen: Positive bowel sounds, soft, nontender, nondistended, no hepatosplenomegaly Extremities: Warm and well-perfused, positive pulses, no cyanosis, clubbing, edema Skin: No rashes Neurologic: nonfocal exam Psychiatric: alert and oriented DIAGNOSTIC DATA: Sodium Date Value Ref Range Status 10/04/2020 138 135 - 145 mmol/L Final Potassium, pl Date Value Ref Range Status 10/04/2020 See Comment 3.3 - 4.9 mmol/L Final Comment: Credited; Hemolyzed Specimen Creatinine Date Value Ref Range Status 10/04/2020 1.04 0.60 - 1.10 mg/dL Final 10/04/2020 1.03 0.60 - 1.10 mg/dL Final 10/03/2020 0.94 0.60 - 1.10 mg/dL Final Hgb Date Value Ref Range Status 10/04/2020 10.6 (L) 11.9 - 15.5 g/dL Final 10/04/2020 10.8 (L) 11.9 - 15.5 g/dL Final TSH Date Value Ref Range Status 02/28/2013 0.66 0.35 - 4.80 mcIUnits/ml Cholesterol Date Value Ref Range Status 10/03/2020 169 30 - 199 mg/dL Final Comment: Interpretive Data Ages < or = 19 years Acceptable: <170 mg/dL Borderline high: 170-199 mg/dL High: >or= 200 mg/dL Ages > or = 20 years Desirable: <200 mg/dL Borderline high: 200-239 mg/dL High: >or= 240 mg/dL Literature References: 1. Expert Panel on Integrated Guidelines for Cardiovascular Health and Risk Reduction in Children and Adolescents. Pediatrics 2011;128:S213 2. NCEP Expert Panel. Circulation 2004;110:227 Current Interpretive Data was last revised on 2017. Triglycerides Date Value Ref Range Status 10/03/2020 113 <=149 mg/dL Final Comment: Interpretive Data Ages < or = 9 years Acceptable: <75 mg/dL Borderline high: 75-99 mg/dL High: >or= 100 mg/dL Ages 10 to 20 years Acceptable: <90 mg/dL Borderline high: 90-129 mg/dL High: >or= 130 mg/dL Ages > or = 20 years Desirable: <150 mg/dL Borderline high: 150-199 mg/dL High: 200-499 mg/dL Very high: >or= 499 mg/dL Literature References: 1. Expert Panel on Integrated Guidelines for Cardiovascular Health and Risk Reduction in Children and Adolescents. Pediatrics 2011;128:S213 2. NCEP Expert Panel. Circulation 2004;110:227 Current Interpretive Data was last revised on 2017. HDL Date Value Ref Range Status 10/03/2020 76 >=40 mg/dL Final Comment: Interpretive Data Ages < or = 19 years Acceptable: >45 mg/dL Borderline low: 40-45 mg/dL Low: <40 mg/dL Ages > or = 20 years Desirable: >or= 60 mg/dL Low: <40 mg/dL Literature References: 1. Expert Panel on Integrated Guidelines for Cardiovascular Health and Risk Reduction in Children and Adolescents. Pediatrics 2011;128:S213 2. NCEP Expert Panel. Circulation 2004;110:227 Current Interpretive Data was last revised on 2017. LDL, calculated Date Value Ref Range Status 10/03/2020 70 <=129 mg/dL Final Comment: Interpretive Data Ages < or = 19 years Acceptable: <110 mg/dL Borderline high: 110-129 mg/dL High: >or= 130 mg/dL Ages > or = 20 years Optimal: <100 mg/dL Near optimal: 100-129 mg/dL Borderline high: 130-159 mg/dL High: >160 mg/dL Literature References: 1. Expert Panel on Integrated Guidelines for Cardiovascular Health and Risk Reduction in Children and Adolescents. Pediatrics 2011;128:S213 2. NCEP Expert Panel. Circulation 2004;110:227 Current Interpretive Data was last revised on 2017. Ref. Range 10/03/2020 19:12 NT-proBNP Latest Ref Range: <=300 pg/mL 1,586 (H) Imaging studies personally reviewed: EKG: SR, anteroseptal infarct cannot be ruled out Echocardiogram 09/2020 Moderate LVE with normal wall thickness, septal flattening with basal inferior hypokinesis, overallnormal LV systolic function, LVEF 55-60%, and normal [...] of 3 mm Hg. No pericardial effusion. ASSESSMENT & PLAN: 1. NSTEMI- elevated troponin due to demand ischemia in the setting of preeclampsia. Echocardiogram with diastolic dysfunction, elevated LV filling pressures and wall motion abnormalities. Cardiac catheterization with angiographically normal coronary arteries, no dissection. 2. Preeclampsia. Blood pressure controlled on enalapril 10 mg BID. Advised to continue home monitoring of BP. Currently participating in [employer] home BP monitoring. She is at increased risk forfuture CV events including CAD, stroke, HTN, and CHF. I recommend annual BP assessment and routine lipid and DM screening per national guidelines. I recommend lifestyle modifications including diet and exercise to reduce modifiable risk factors for future CV events. Per the 2018 ACC/AHA lipid guidelines, it is reasonable to consider initiation of statin therapy in women >40 years of age when her calculated 10 year ASCVD risk rises above 5%. 3. Family planning. Discussed risk of adverse outcomes with short interval pregnancies (<12 month interval) and risk of preeclampsia with future pregnancies. I also discussed methods of contraceptions, recommended LARC. Advised her to follow up with her OB. Thank you very much for letting me participate in the care of this patient. I will plan to see her back in follow up in 3 months. Lipid panel and HbA1c at next appointment. Please feel free to call [phone] with any questions or concerns. Sincerely, Liliana Munson MD Novelty Dipperrespiratory medicine physician [facility] documented in this encounter Plan of Treatment Not on file documented as of this encounter Visit Diagnoses Diagnosis History of pre-eclampsia- Primary Essential hypertension Unspecified essential hypertension Encounter for counseling regarding contraception documented in this encounter Discontinued Medications Medication Sig Discontinue Reason Start Date End Da te sertraline (ZOLOFT) 50 mg tabletIndications:Anxiet y with Depression Take 1 tablet (50 mg total) by mouth daily 04/04/2020 10/12/2020 terconazole (TERAZOL 3) 80 mg vaginal suppository Insert 80 mg into the vagina nightly 10/12/2020 28 mg iron- 800 mcg tablet Take 1 tablet by mouth daily 03/06/2020 10/12/2020 oxyCODONE (ROXICODONE) 5 mg immediate release tabletIndications:Pain Take 1 tablet (5 mg total) by mouth every 4 (four) hours as needed for pain 09/30/2020 10/12/2020 nicotine (NICODERM CQ) [address] 1 patch on the skin daily 04/04/2020 10/12/2020 enalapril (VASOTEC) 5 mg tablet Take 1 tablet (5 mg total) by mouth 2 (two) times a day 10/05/2020 10/12/2020 documented as of this encounter Care Teams Solidworks Drafter Relationship Specialty Start Date End Date No, Physician PCP - General 11/01/16 documented as of this encounter
--- OUTSIDE RECORDS SUMMARY | 2024-04-02 11:53 | XMS_ITS | Encounter Summary ---
Author Organization [facility] Healthcare Address [address] [place] [address] Care Team Providers Care Centrifugal Operator Name Role Phone No, Physician Primary Care Provider [phone] Encounter Details Date Type Department Care Team (Late st Contact Info) Description 08/08/2021 9:53 AM CDT - 08/08/2021 11:12 AM CDT Emergency [facility] Department [address] [place] [address] Discharge Disposition: Left without being seen Social History Tobacco Use Types Packs/Day Years [...] of Binge Drinking Not on file 08/11 [place] Depression Scale Answer Date Recorded [place] Depression Scale Total 0 07/05/2020 The thought of harming myself has occurred to me . 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 Gender Identity Female 12/02/2022 6:55 PM CDT Sexual Orientation Straight 12/02/2022 6: 55 PM CDT documented as of this encounter Discharge Diagnoses Diagnosis Procedure and treatment not carried out due to patient leaving prior to being seen by health care provider - PROCEDURE AND TREATMENT NOT CARRIED OUT DUE TO PATIENT LEAVING PRIOR TO BEING SEEN BY HEALTH CARE [place] documented in this encounter Medications at Time [...] 120 tablet 3 09/30/2020 3 PNV with [id number] 27 mg iron- 1 mg tabletIndication s:Vitamin [...] Discharge Disposition Disposition Code Departure Means Destination Left without being seen documented in this encounter Plan of Treatment Not on file documented as of this encounter Visit Diagnoses Not on filedocumented in this encounter Care Teams Centrifugal Operator Relationship Specialty Start Date End Date No, Physician PCP - General 11/01/16 documented as of this encounter
--- OUTSIDE RECORDS SUMMARY | 2024-04-02 11:53 | XMS_ITS | Encounter Summary ---
Author Organization [facility] Healthcare Address [address] [place] [address] Care Team Providers Care Armor Reconnaissance Vehicle Crewman Name Role Phone No, Physician Primary Care Provider [phone] Encounter Details Date Type Department Care Team (Late st Contact Info) Description 02/16/2023 Telephone Obstetrics and Gynecology Clinic [address] [facility] 3rd Floor [address] [place] [address] Rosana Jackson RN Social History Tobacco Use Types [...] money to get more. Often true 01/02/2023 [place] Depression Scale Answer Date Recorded [place] Depression Scale Total 0 07/05/2020 The thought of harming myself has occurred to me . Never 07/05/2020 Comments Yes Sex and Gender Information Value Date Recorded Sex Assigned at Not on file Legal Sex Female 8:40 PM TRANSIT MIXER OPERATOR Gender Identity Female 12/02/2022 6:55 PM CDT Sexual Orientation Straight 12/02/2022 6: 55 PM CDT documented as of this encounter Miscellaneous Notes * Telephone Encounter - Rosana Jackson RN - 02/16/2023 5:01 PM TRANSIT MIXER OPERATOR Call reminder to pt re: [facility] appt, pt states started new job today, unable to attend tomorrow's appt, discussed importance of regular care, pt verbalizes understanding. Rescheduled for 02/24. SIT MIXER OPERATOR documented in this encounter Plan of Treatment Not on file documented as of this encounter Visit Diagnoses Not on filedocumented in this encounter Care Teams Armor Reconnaissance Vehicle Crewman Relationship Specialty Start Date End Date No, Physician PCP - General 11/01/16 documented as of this encounter
--- OUTSIDE RECORDS SUMMARY | 2024-04-02 11:53 | XMS_ITS | Encounter Summary ---
Author Organization [facility] Healthcare Address [address] [place] [address] Care Team Providers Care Art Psychotherapist Name Role Phone No, Physician Primary Care Provider [phone] Encounter Details Date Type Department Care Team (Late st Contact Info) Description 01/23/2023 Telephone [facility] [address] [place] [address] Shruthi Keys MD [address] [facility] 3 [facility] [address] [place] [address] Social History Tobacco Use [...] money to get more. Often true 01/02/2023 [place] Depression Scale Answer Date Recorded [place] Depression Scale Total 0 07/05/2020 The thought of harming myself has occurred to me . Never 07/05/2020 Comments Yes Sex and Gender Information Value Date Recorded Sex Assigned at Not on file Legal Sex Female 8:40 PM BUCCARO Gender Identity Female 12/02/2022 6:55 PM CDT Sexual Orientation Straight 12/02/2022 6: 55 PM CDT documented as of this encounter Miscellaneous Notes * Telephone Encounter - Shruthi Keys MD - 01/23/2023 11:41 AM CDT R2 update TC to patient to check in. Under lots of stress right now because she is in between jobs. Denies CP, SOB, palpitations, CTX, VB, LOF. Endorses good movement. Reviewed normal completion of anatomy US. Patient has EOB with [facility] scheduled for 02/03, reminded of appointment. Will call CDL in attempt to obtain echo prior to maternal cardiology visit. Shruthi Keys MD PGY-2, Obstetrics & Gynecology 01/23/23 documented in this encounter Plan of Treatment Not on file documented as of this encounter Visit Diagnoses Not on filedocumented in this encounter Care Teams Art Psychotherapist Relationship Specialty Start Date End Date No, Physician PCP - General 11/01/16 documented as of this encounter
--- OUTSIDE RECORDS SUMMARY | 2024-04-02 11:53 | XMS_ITS | Encounter Summary ---
Author Organization [facility] Healthcare Address [address] [place] [address] Care Team Providers Care Log Truck Driver Name Role Phone No, Physician Primary Care Provider [phone] Encounter Details Date Type Department Care Team (Late st Contact Info) Description 10/21/2020 Orders Only [facility] [address] [place] [address] An Diaz MD [address] [facility] [address] [place] [address] Poor growth affecting management of mother in third trimester, single or unspecified fetus Social History Tobacco Use Types Packs/Day Years [...] of Binge Drinking Not on file 08/11 [place] Depression Scale Answer Date Recorded [place] Depression Scale Total 0 07/05/2020 The thought of harming myself has occurred to me . Never 07/05/2020 Comments No Sex and Gender Information Value Date Recorded Sex Assigned at Not on file Legal Sex Female 8:40 PM ONLINE TRADER Gender Identity Female 12/02/2022 6:55 PM CDT Sexual Orientation Straight 12/02/2022 6: 55 PM CDT documented as of this encounter Plan of Treatment Not on file documented as of this encounter Visit Diagnoses Diagnosis Poor growth affecting management of mother in third trimester, single or unspecified fetus documented in this encounter Orders Imaging Orders Without Results Count Last Order ed Date First Ordered Date US BIOPHYSICAL PROFILE WO TEST 1 10/21/2020 documented in this encounter Care Teams Log Truck Driver Relationship Specialty Start Date End Date No, Physician PCP - General 11/01/16 documented as of this encounter
--- OUTSIDE RECORDS SUMMARY | 2024-04-02 11:53 | XMS_ITS | Encounter Summary ---
Author Organization [facility] Healthcare Address [address] [place] [address] Care Team Providers Care Title I Director Name Role Phone No, Physician Primary Care Provider [phone] Encounter Details Date Type Department Care Team (Late st Contact Info) Description 03/18/2023 Orders Only [facility] [address] [facility] 3rd Floor [address] [place] [address] Cherri Moreland, RN Social History Tobacco Use Types Packs/Day [...] money to get more. Often true 01/02/2023 [place] Depression Scale Answer Date Recorded [place] Depression Scale Total 1 02/24/2023 The thought of harming myself has occurred to me . Never 02/24/2023 Comments Yes Sex and Gender Information Value Date Recorded Sex Assigned at Not on file Legal Sex Female 8:40 PM LAB SYSTEMS ANALYST Gender Identity Female 12/02/2022 6:55 PM CDT Sexual Orientation Straight 12/02/2022 6: 55 PM CDT documented as of this encounter Ordered Prescriptions Prescription Sig Dispense Quantity Refills Last Filled Start Date End Date aspirin 81 mg chewable tablet Take 1 tablet (81 mg total) by mouth daily 30 tablet 11 03/18/2023 05/25/2023 PNV with [id number] ( Vitamin Plus Low Iron) 27 mg iron- 1 mg tablet Take 1 tablet by mouth daily 30 tablet 11 03/18/2023 05/25/2023 documented in this encounter Progress Notes * Cherri Moreland RN - 03/18/2023 9:45 AM CST Rx has been resent under Dr. Crisostomo. SYSTEMS ANALYST documented in this encounter Plan of Treatment Not on file documented as of this encounter Visit Diagnoses Not on filedocumented in this encounter Discontinued Medications Medication Sig Discontinue Reason Start Date End Da te PNV with [id number]-ccci-[id number] ( Vitamin Plus Low Iron) 27 mg iron- 1 mg tablet Take 1 tablet by mouth daily Reorder 12/02/2022 03/18/2023 aspirin 81 mg chewable tablet Take 1 tablet (81 mg total) by mouth daily Reorder 12/02/2022 03/18/2023 documented as of this encounter Care Teams Title I Director Relationship Specialty Start Date End Date No, Physician PCP - General 11/01/16 documented as of this encounter
--- OUTSIDE RECORDS SUMMARY | 2024-04-02 11:54 | XMS_ITS | Encounter Summary ---
Author Organization [facility] Healthcare Address [address] [place] [address] Care Team Providers Care Barback Name Role Phone No, Physician Primary Care Provider [phone] Encounter Details Date Type Department Care Team (Late st Contact Info) Description 10/08/2020 Telephone [facility] [address] [place] [address] Mag Geller MD [address] [facility] [phone] [place] [address] Social History Tobacco Use Types [...] of Binge Drinking Not on file 08/11 [place] Depression Scale Answer Date Recorded [place] Depression Scale Total 0 07/05/2020 The thought of harming myself has occurred to me . Never 07/05/2020 Comments No Sex and Gender Information Value Date Recorded Sex Assigned at Not on file Legal Sex Female 8:[address] SCAN SPECIAL PROCEDURES TECHNOLOGIST Gender Identity Female 12/02/2022 6:55 PM CDT Sexual Orientation Straight 12/02/2022 6: 55 PM CDT documented as of this encounter Miscellaneous Notes * Telephone Encounter - Liliana Munson MD - 10/10/2020 5:55 PM CDT thanks * Telephone Encounter - Anne Miller RN - 10/10/2020 4:39 PM CDT Update Spoke w/ pt Her BP has been running 130-140s/90s When I recommended the increase, she stated that Dr. Geller called yesterday and had her do that, rita is now taking BID Pt will be in on Thursday for appt * Telephone Encounter - Allie Bro - 10/08/2020 10:47 AM CDT SPOKE W/PT SHE IS AWARE OF APPT * Telephone Encounter - Rose Christopher - 10/08/2020 10:22 AM CDT Please call and make pt aware of apt with on 10/12@12:50pm. Thank you! * Telephone Encounter - Mag Geller MD - 10/08/2020 8:26 AM CDT Home Blood Pressure Monitoring - Severe Range Blood Pressure Alert 10/08/20 8:26 AM Steve Shi is a 25 y.o. female POD#10 with Preeclampsia with severe features who has been monitoring their blood pressures from home since discharge. She called in tonight with a blood pressure of 167/96 mmHg which was 145/79 mmHg on repeat check. She denies any headache, vision changes,right upper quadrant pain. She is currently on Enalapril 5mg BID. States BPs since discharge on 10/05 have been mostly in 120/80s. Recommended patient continue current regimen. Will follow up BP trend in next day to better assess if this AM's reading is an outlier or true reflection of increase in BP which would require uptitration of meds. Discussed she should behearing from Dr. Munson' office today to set up post discharge maternal cards follow up. Agrees to continue sending BPs. Precautions reviewed. Mag Geller MD documented in this encounter Plan of Treatment Not on file documented as of this encounter Visit Diagnoses Not on filedocumented in this encounter Care Teams Barback Relationship Specialty Start Date End Date No, Physician PCP - General 11/01/16 documented as of this encounter
--- OUTSIDE RECORDS SUMMARY | 2024-04-02 11:54 | XMS_ITS | Encounter Summary ---
Author Organization [facility] Healthcare Address [address] [place] [address] Care Team Providers Care Digital Circuit Designer Name Role Phone No, Physician Primary Care Provider [phone] Encounter Details Date Type Department Care Team (Late st Contact Info) Description 09/06/2020 Telephone [facility] [address] [facility] 3rd Floor [address] [place] [address] Nicole Diaz RN Social History Tobacco Use Types Packs/Day Years Used Date Smoking Tobacco: Former Cigarettes Smokeless Tobacco: Never Comments:working on quiting Alcohol Use Standard Drinks/Week Comments No 0 (1 standard drink = 0.6 oz pur e alcohol) AUDIT-C Answer Date Recorded Q1: How often do you have a drink containing alc ohol? Never 08/20/2020 Average Number of Drinks Not on file 021 Frequency of Binge Drinking Not on file 08/11 [place] Depression Scale Answer Date Recorded [place] Depression Scale Total 0 07/05/2020 The thought of harming myself has occurred to me . 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 Calderon regarding maternity leave letter. Nicole Diaz RN documented in this encounter Plan of Treatment Not on file documented as of this encounter Visit Diagnoses Not on filedocumented in this encounter Care Teams Digital Circuit Designer Relationship Specialty Start Date End Date No, Physician PCP - General 11/01/16 documented as of this encounter
--- OUTSIDE RECORDS SUMMARY | 2024-04-02 11:54 | XMS_ITS | Encounter Summary ---
Author Organization [facility] Healthcare Address [address] [place] [address] Care Team Providers Care Boiler Tester Name Role Phone No, Physician Primary Care Provider [phone] Reason for Referral * Diagnostic Imaging (Routine) - Closed Specialty Diagnoses / Procedures Referred By Riaz harvey Referred To Contact Diagnoses Poor growth affecting management of mother in third trimester, single or unspecified fetus Procedures US Biophysical Profile WO Test An Diaz MD [address] [facility] [address] [place] [address] Phone: tel: fax: [facility] (All Locations) Referral ID Status Reason Start Date Expiration Date Visits Re quested Visits Authorized [id number] Closed 07/11/2020 10/10/2020 8 8 Reason for Visit * Diagnostic Imaging (Routine) - Closed Specialty Diagnoses / Procedures Referred By Riaz harvey Referred To Contact Diagnoses Poor growth affecting management of mother in third trimester, single or unspecified fetus Procedures US Biophysical Profile WO Test An Diaz MD [address] [facility] [address] [place] [address] Phone: tel: fax: [facility] (All Locations) Referral ID Status Reason Start Date Expiration Date Visits Re quested Visits Authorized [id number] Closed 07/11/2020 10/10/2020 8 8 Encounter Details Date Type Department Care Team (Latest Contact Info) Description 08/30/2020 1:30 PM CDT - 08/30/2020 11:59 PM CDT Hospital Encounter [facility] - Ultrasound [address] [facility] [place] [address] Giuliana Crisostomo MD [phone] [place], [place] [id number] Poor growth affecting management of mother in third trimester, single or unspecified fetus Discharge Disposition: Discharge to home or self [...] of Binge Drinking Not on file 08/11 [place] Depression Scale Answer Date Recorded [place] Depression Scale Total 0 07/05/2020 The thought of harming myself has occurred to me . 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 Gender Identity Female 12/02/2022 6:55 PM CDT Sexual Orientation Straight 12/02/2022 6: 55 PM CDT documented as of this encounter Medications at Time of Discharge acetaminophen 500 mg capsuleIndications: Pain Take 2 capsules (1,000 mg total) by mouth every 6 (six) hours 120 tablet 3 1 02/20/20 23 azelaic acid 15 % gel APPLY TO FACE TWICE A DAY 1 05/25/19 24 doxylamine (UNISOM) 25 mg tablet Take 25 mg by mouth 3 (three) times a day 10/01/19 21 ibuprofen (ADVIL,MOTRIN) 600 mg tabletIndications:C ramps Take 1 tablet (600 mg total) by mouth every 6 (six) hours 120 tablet 3 1 02/20/20 23 nicotine (NICODERM CQ) [address] 1 patch on the skin daily 30 patch 0 10/13/19 21 ondansetron ODT (ZOFRAN-ODT) 4 mg disintegrating tablet Take 1 tablet (4 mg total) by mouth every 8 (eight) hours as needed for nausea or vomiting 20 tablet 5 0 10/01/19 21 oxyCODONE (ROXICODONE) 5 mg immediate release tabletIndications:P ain Take 1 tablet (5 mg total) by mouth every 4 (four) hours as needed for pain 20 tablet 1 10/13/19 21 PNV with [id number]-wppj-JT 27 mg iron- 1 mg tabletIndications:V itamin Deficiency Prevention Take 1 tablet by mouth daily 60 tablet 3 1 12/03/19 23 polyethylene glycol (MIRALAX) 17 gram packetIndications:c onstipation Take 1 packet (17 g total) by mouth daily as needed for constipation 30 packet 3 1 02/20/20 23 polyethylene glycol (MIRALAX) 17 gram/dose powder Take 17 g by mouth daily 510 g 0 05/25/19 24 28 mg iron- 800 mcg tablet Take 1 tablet by mouth daily 0 10/13/19 21 pyridoxine (VITAMIN B6) 25 mg tablet Take 25 mg by mouth 3 (three) times a day 10/01/19 21 sertraline (ZOLOFT) 50 mg tabletIndications:A nxiety with Depression Take 1 tablet (50 mg total) by mouth daily 30 tablet 5 0 10/13/19 21 terconazole (TERAZOL 3) 80 mg vaginal suppository Insert 80 mg into the vagina nightly 10/13/19 21 documented as of this encounter Discharge Disposition Disposition Code Departure Means Destination Discharge to home or self care documented in this encounter Plan of Treatment Not on file documented as of this encounter Procedures Procedure Name Priority Date/Time Associated Diagnosis Comments US BIOPHYSICAL PROFILE WO TEST Schedule Routine, Read Routine (OP Routine) 08/30/2020 1:40 PM CDT Poor growth affecting management of mother in third trimester, single or unspecified fetus documented in this encounter Results * US Biophysical Profile WO Test (08/30/2020 1:40 PM CDT) Fetus# Fetus1 VIEWPOINT Placenta Details posterior, Previa-no VIEWPOINT Presentation Vertex VIEWPOINT Anatomical Region Laterality Modality N/A Ultrasound 08/30/2020 1:41 PM CDT us An Diaz MD IMG OB US PROCEDURES Final Result documented in this encounter Visit Diagnoses Diagnosis Poor growth affecting management of mother in third trimester, single or unspecified fetus documented in this encounter Care Teams Boiler Tester Relationship Specialty Start Date End Date No, Physician PCP - General 11/01/16 documented as of this encounter
--- OUTSIDE RECORDS SUMMARY | 2024-04-02 11:54 | XMS_ITS | Encounter Summary ---
Author Organization [facility] Healthcare Address [address] [place] [address] Care Team Providers Care Supervisor Livestock Yard Name Role Phone No, Physician Primary Care Provider [phone] Reason for Referral * Diagnostic Imaging (Routine) - Closed Specialty Diagnoses / Procedures Referred By Contac t Referred To Contact Diagnoses Poor growth affecting management of mother in third trimester, fetus 1 of multiple gestation Procedures US Ob Follow Up Lety Calderon MD [address] [facility] [address] [place] [address] Phone: tel: fax: [facility] (All Locations) Referral ID Status Reason Start Date Expiration Date Visits Re quested Visits Authorized [id number] Closed 07/26/2020 08/25/2021 1 1 Reason for Visit * Diagnostic Imaging (Routine) - Closed Specialty Diagnoses / Procedures Referred By Riaz harvey Referred To Contact Diagnoses Poor growth affecting management of mother in third trimester, fetus 1 of multiple gestation Procedures US Ob Follow Up Lety Calderon MD [address] [facility] [address] [place] [address] Phone: tel: fax: [facility] (All Locations) Referral ID Status Reason Start Date Expiration Date Visits Re quested Visits Authorized [id number] Closed 07/26/2020 08/25/2021 1 1 Encounter Details Date Type Department Care Team (Latest Contact Info) Description 09/13/2020 12:30 PM CDT - 09/13/2020 11:59 PM CDT Hospital Encounter [facility] Center for Outpatient [facility] - Ultrasound [address] [facility] Outpatient Health [place], [place] [id number] Giuliana Crisostomo MD [address] [facility] [phone] [place] [address] Lety Calderon MD [address] [facility] [address] [place], [place] [id number] Poor growth affecting management of mother in third trimester, fetus 1 of multiple gestation Discharge Disposition: Discharge to home or self [...] of Binge Drinking Not on file 08/11 [place] Depression Scale Answer Date Recorded [place] Depression Scale Total 0 07/05/2020 The thought of harming myself has occurred to me . 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 Gender Identity Female 12/02/2022 6:55 PM CDT [...] 20 tablet 1 10/13/19 21 PNV with [id number] 27 mg iron- 1 mg tabletIndications:V itamin [...] UP Schedule Routine, Read Routine (OP Routine) 09/13/2020 12:47 PM CDT Poor growth affecting management of mother in third trimester, fetus 1 of multiple gestation documented in this encounter Results * US Ob Follow Up (09/13/2020 12:47 PM CDT) Fetus# Fetus1 VIEWPOINT Placenta Details posterior, Previa-no VIEWPOINT Estimated Weight 2,817 g&grams VIEWPOINT Presentation Vertex VIEWPOINT Anatomical Region Laterality Modality Abdomen N/A Ultrasound 09/13/2020 12:5 7 PM CDT Lety Calderon MD IMG OB US PROCEDU RES Final Result documented in this encounter Visit Diagnoses Diagnosis Poor growth affecting management of mother in third trimester, fetus 1 of multiple gestation documented in this encounter Care Teams Supervisor Livestock Yard Relationship Specialty Start Date End Date No, Physician PCP - General 11/01/16 documented as of this encounter
--- OUTSIDE RECORDS SUMMARY | 2024-04-02 11:54 | XMS_ITS | Encounter Summary ---
Author Organization [facility] Healthcare Address [address] [place] [address] Care Team Providers Care Cafe Lead Name Role Phone No, Physician Primary Care Provider [phone] Encounter Details Date Type Department Care Team (Late st Contact Info) Description 08/30/2020 Telephone Obstetrics and Gynecology Clinic [address] [facility] 3rd Floor [address] [place] [address] Radha Kinsey Social History Tobacco Use Types Packs/Day Years [...] of Binge Drinking Not on file 08/11 [place] Depression Scale Answer Date Recorded [place] Depression Scale Total 0 07/05/2020 The thought of harming myself has occurred to me . 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
--- OUTSIDE RECORDS SUMMARY | 2024-04-02 11:54 | XMS_ITS | Encounter Summary ---
Author Organization [facility] Healthcare Address [address] [place] [address] Care Team Providers Care Finance Accounting Internship Name Role Phone No, Physician Primary Care Provider [phone] Encounter Details Date Type Department Care Team (Late st Contact Info) Description 09/06/2020 Telephone Obstetrics and Gynecology Clinic [address] [facility] 3rd Floor [address] [place] [address] Radha Kinsey Social History Tobacco [...] of Binge Drinking Not on file 08/11 [place] Depression Scale Answer Date Recorded [place] Depression Scale Total 0 07/05/2020 The thought of harming myself has occurred to me . 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 Contact: Thank you:) documented in this encounter Plan of Treatment Not on file documented as of this encounter Visit Diagnoses Not on filedocumented in this encounter Care Teams Finance Accounting Internship Relationship Specialty Start Date End Date No, Physician PCP - General 11/01/16 documented as of this encounter
--- OUTSIDE RECORDS SUMMARY | 2024-04-02 11:54 | XMS_ITS | Encounter Summary ---
Author Organization [facility] Healthcare Address [address] [place] [address] Care Team Providers Care Batter Mixer Name Role Phone No, Physician Primary Care Provider [phone] Reason for Visit * Reason Onset Date Comments Follow-up 10/03/2020 Encounter Details Date Type Department Care Team (Late st Contact Info) Description 10/03/2020 Nurse Triage [address] [address] Enrique Conner RN Social History Tobacco Use Types Packs/Day [...] of Binge Drinking Not on file 08/11 [place] Depression Scale Answer Date Recorded [place] Depression Scale Total 0 07/05/2020 The thought of harming myself has occurred to me . Never 07/05/2020 Comments No Sex and Gender Information Value Date Recorded Sex Assigned at Not on file Legal Sex Female 8:40 PM SIDEWALK REPAIRER Gender Identity Female 12/02/2022 6:55 PM CDT Sexual Orientation Straight 12/02/2022 6: 55 PM CDT documented as of this encounter Miscellaneous Notes * Telephone Encounter - Enrique Conner RN - 10/03/2020 7:03 PM CDT Pt calling with c/o SOB since last night that comes and goes. Also c/o a LOZANO X's 2 hours that feels more like a migraine. States she took the oxycodone earlier, tylenol and ibuprofen and it did not help the LOZANO. Says that she delivered by c/s on 09/28/20. States that she has never had the SOB before. Denies any difficulty breathing. Pt instructed to go to the [facility] now to be evaluated. Pt verbalizes un derstanding and states that she will be coming in. documented in this encounter Plan of Treatment Not on file documented as of this encounter Visit Diagnoses Not on filedocumented in this encounter Care Teams Batter Mixer Relationship Specialty Start Date End Date No, Physician PCP - General 11/01/16 documented as of this encounter
--- OUTSIDE RECORDS SUMMARY | 2024-04-02 11:54 | XMS_ITS | Encounter Summary ---
Author Organization [facility] Healthcare Address [address] [place] [address] Care Team Providers Care Regulatory Affairs Internship Name Role Phone No, Physician Primary Care Provider [phone] Reason for Visit * Reason Onset Date Comments Follow-up 10/03/2020 Encounter Details Date Type Department Care Team (Late st Contact Info) Description 10/03/2020 Nurse Triage [address] [address] Enrique Conner RN Social History Tobacco Use [...] of Binge Drinking Not on file 08/11 [place] Depression Scale Answer Date Recorded [place] Depression Scale Total 0 07/05/2020 The thought of harming myself has occurred to me . 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 Informed pt that yes since she is experiencing SOB she can go to the nearest ED. Pt verbalizes understanding and states ok documented in this encounter Plan of Treatment Not on file documented as of this encounter Visit Diagnoses Not on filedocumented in this encounter Care Teams Regulatory Affairs Internship Relationship Specialty Start Date End Date No, Physician PCP - General 11/01/16 documented as of this encounter
--- OUTSIDE RECORDS SUMMARY | 2024-04-02 11:54 | XMS_ITS | Encounter Summary ---
Author Organization [facility] Healthcare Address [address] [place] [address] Care Team Providers Care Sample Sawyer Name Role Phone No, Physician Primary Care Provider [phone] Encounter Details Date Type Department Care Team (Late st Contact Info) Description 09/26/2020 12:30 PM CDT Lab [address] [phone] Amy Alvarez MD [address] [facility] [address] [place] [address] Pre-operative laboratory examination Discharge Disposition: Discharge to home or [...] of Binge Drinking Not on file 08/11 [place] Depression Scale Answer Date Recorded [place] Depression Scale Total 0 07/05/2020 The thought of harming myself has occurred to me . Never 07/05/2020 Comments Yes Sex and Gender Information Value Date Recorded Sex Assigned at Not on file Legal Sex Female 8:40 PM REHABILITATION SERVICES DIRECTOR Gender Identity Female 12/02/2022 6:55 PM CDT Sexual Orientation Straight 12/02/2022 6: 55 PM CDT documented as of this encounter Discharge Disposition Disposition Code Departure Means Destination Discharge to home or self care documented in this encounter Plan of Treatment Not on file documented as of this encounter Procedures Procedure Name Priority Date/Time Associated Diagnosis Comments INFLUENZA A/B AND COVID-19 PCR Routine 09/26/2020 12:27 PM CDT Pre-operative laboratory examination documented in this encounter Results * Influenza A/B and COVID-19 PCR Nasopharyngeal (09/26/2020 12:27 PM CDT) COVID-19 RNA Not Detected OFELIA MARQUEZ (AG) Comment: Interpretive Data Synonyms for this test include: PCR and NAAT . ??Testing performed by the [facility] Molecular Infectious Disease Laboratory. The 2018-Novel Coronavirus Assay (COVID-19) Real Time RT-PCR assay is for in vitro diagnostic use under FDA emergency use authorization only. A negative RT-PCR result does not preclude infection with COVID-19 and should not be used as the sole basis for treatment or other patient management decisions. ??Additional sample types have been validated according to CLIA regulations. ?? Current Interpretive Data was last revised on May 17, 2020. Testing performed by: [facility], [address] [place] [address]., [id number] Influenza A RNA Not Detected Zehra MARQUEZ (AG) Comment:Testing performed by : [facility], [address] [place] [address]., [address] Influenza B RNA Not Detected Zehra MARQUEZ (AG) Comment: Interpretive Data Testing performed by the [facility] Molecular Infectious Disease Laboratory. This test is performed using the omero Influenza A/B Assay. This is a real-time RT-PCR test for the qualitative detection of nucleic acid from Influenza A and Influenza B. This assay has been reviewed by the FDA for Emergency Use Authorization (EUA). The performance characteristics have been verified by the [facility] Laboratory. Results should be interpreted in combination with clinical context and a negative result does not rule out infection. ?? Interpretive data last revised 2020. Testing performed by: [facility], [address] [facility], [address] First COVID-19 test? No EUNICE MARQUEZ (AG) Comment:Testing performed by : [facility], [address] [facility], [address] Employeed in healthcare? Unknown EUNICE MARQUEZ (AG) Comment:Testing performed by : [facility], [address] [facility], [address] status? Yes PATITO MARQUEZ (AG) Comment:Testing performed by : [facility], [address] [facility], [address] Group care resident? No EUNICE MARQUEZ (AG) Comment:Testing performed by : [facility], [address] [facility], [address] Hospitalized? Unknown EUNICE MARQUEZ (AG) Comment:Testing performed by : [facility], [address] [facility], [address] Is patient in ICU? Unknown Zehra MARQUEZ (AG) Comment:Testing performed by : [facility], [address] [facility], [address] Symptomatic as defined by CDC? No EUNICE MARQUEZ (AG) Comment:Testing performed by : [facility], [address] [place] [address], [id number] Nasopharyngeal 09/26/2020 12 :27 PM CDT 09/26/2020 6:17 PM CDT us Amy Alvarez MD LAB MICROBIOLOGY - GENERAL ORDER ROZINA Final Result EUNICE MARQUEZ (AG) 1 [facility] [place] [address] documented in this encounter Visit Diagnoses Diagnosis Pre-operative laboratory examination Pre-procedural laboratory examination documented in this encounter Care Teams Sample Sawyer Relationship Specialty Start Date End Date No, Physician PCP - General 11/01/16 documented as of this encounter
--- OUTSIDE RECORDS SUMMARY | 2024-04-02 11:54 | XMS_ITS | Encounter Summary ---
Author Organization [facility] Medical Group Address [address] [facility] [address] [place] [address] Care Team Providers Care Hand Tool Lapper Name Role Phone No, Physician Primary Care Provider [phone] Encounter Details Date Type Department Care Team (Late st Contact Info) Description 09/24/2020 Orders Only [facility] Testing Site - [address] [place] [id number] Amy Alvarez MD [address] [place] [id number] Pre-operative laboratory examination (Primary Dx) Social History Tobacco Use [...] of Binge Drinking Not on file 08/11 [place] Depression Scale Answer Date Recorded [place] Depression Scale Total 0 07/05/2020 The thought of harming myself has occurred to me . 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 Class: Internal Referral Ordering User: Amy Alvarez MD Auth Provider: AMY ALVAREZ Enc Provider: Amy Alvarez MD Diagnosis: Encounter for supervision of normal in first trimester, unspecified Department: [facility] winterizer Sched Instruct: ?? Comment: ?? Order Specific Questions Question Answer Comment Testing types: Pre-procedure ?? Date of Px/chemo/treatment/placement/transfer 09/27/2020 ?? Testing site patient will be sent to: [place], [place] ?? Date testing requested: 09/25/2020 ?? Testing: COVID/FLU ?? Does the patient currently work in a healthcare facility with direct patient contact? No ?? Is the patient a resident of a congregate care or living setting? No ?? Is the patient ? Yes ?? Please select the performing region: [facility] documented in this encounter Plan of Treatment Not on file documented as of this encounter Results * Influenza A/B and COVID-19 PCR Nasopharyngeal (09/26/2020 12:27 PM CDT) COVID-19 RNA Not Detected [facility]) Comment: Interpretive Data Synonyms for this test include: PCR and NAAT . ??Testing performed by the [facility] Molecular Infectious Disease Laboratory. The 2019-Novel Coronavirus Assay (COVID-19) Real Time RT-PCR assay [...] on May 17, 2020. Testing performed by: [facility], [facility], [address] Influenza A RNA Not Detected C JONATHAN MARQUEZ (AG) Comment:Testing performed by : [facility], [address] [place]., [address] Influenza B RNA Not Detected C JONATHAN MARQUEZ (AG) Comment: Interpretive Data Testing performed by the [facility] Molecular Infectious Disease Laboratory. This test is performed using the omero Influenza A/B Assay. This is a real-time RT-PCR test for the qualitative detection of nucleic acid from Influenza A and Influenza B. This assay has been reviewed by the FDA for Emergency Use Authorization (EUA). The performance characteristics have been verified by the [facility] Laboratory. Results should be interpreted in combination with clinical context and a negative result does not rule out infection. ?? Interpretive data last revised 2020. Testing performed by: [facility], [address] [place] [address], [address] First COVID-19 test? No [facility] ([place]) Comment:Testing performed by : [facility], [address] [place] [address], [address] Employeed in healthcare? Unknown [facility] ([place]) Comment:Testing performed by : [facility], [address] [place] [address], [address] status? Yes CE KATHE MARQUEZ (AG) Comment:Testing performed by : [facility], [address] [place] [address], [address] Group care resident? No [facility] ([place]) Comment:Testing performed by : [facility], [address] [place] [address], [address] Hospitalized? Unknown [facility] ([place]) Comment:Testing performed by : [address], [address] Is patient in ICU? Unknown C [facility] ([place]) Comment:Testing performed by : [facility], [address] [place] [address], [address] Symptomatic as defined by CDC? No [facility] ([place]) Comment:Testing performed by : [facility], [address] [facility], [place]., [address] Nasopharyngeal 09/26/2020 12 :27 PM CDT 09/26/2020 6:17 PM CDT us Amy Alvarez MD LAB MICROBIOLOGY - GENERAL ORDER ROZINA Final Result EUNICE [facility]) 1 [facility] Department [place] [address] documented in this encounter Visit Diagnoses Diagnosis Pre-operative laboratory examination- Primary Pre-procedural laboratory examination documented in this encounter Care Teams Hand Tool Lapper Relationship Specialty Start Date End Date No, Physician PCP - General 11/01/16 documented as of this encounter
--- OUTSIDE RECORDS SUMMARY | 2024-04-02 11:54 | XMS_ITS | Encounter Summary ---
Author Organization [facility] Healthcare Address [address] [place] [address] Care Team Providers Care Cabinet And Trim Installer Name Role Phone No, Physician Primary Care Provider [phone] Encounter Details Date Type Department Care Team (Late st Contact Info) Description 09/12/2020 Telephone Obstetrics and Gynecology Clinic [address] [facility] 3rd Floor [address] [place] [address] Mirtha Cortes, KAMERON Social History Tobacco Use Types Packs/Day Years [...] of Binge Drinking Not on file 08/11 [place] Depression Scale Answer Date Recorded [place] Depression Scale Total 0 07/05/2020 The thought of harming myself has occurred to me . 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 Pt states she does not know fax number for her work. Explained to patient how to access letter under [employer]. documented in this encounter Plan of Treatment Not on file documented as of this encounter Visit Diagnoses Not on filedocumented in this encounter Care Teams Cabinet And Trim Installer Relationship Specialty Start Date End Date No, Physician PCP - General 11/01/16 documented as of this encounter
--- OUTSIDE RECORDS SUMMARY | 2024-04-02 11:54 | XMS_ITS | Encounter Summary ---
Author Organization [facility] Healthcare Address [address] [place] [address] Care Team Providers Care Electronic Transaction Implementer Name Role Phone No, Physician Primary Care Provider [phone] Reason for Visit * Reason Onset Date Comments Outgoing Call 09/22/2020 IOL instr uctions Encounter Details Date Type Department Care Team (Late st Contact Info) Description 09/22/[address] [id number] Yeimy Haney RN Outgoing Call (IOL instructions) Social History Tobacco Use Types Packs/Day Years [...] of Binge Drinking Not on file 08/11 [place] Depression Scale Answer Date Recorded [place] Depression Scale Total 0 07/05/2020 The thought of harming myself has occurred to me . 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 Patient did not answer, no ID, voicemail not setup. documented in this encounter Plan of Treatment Not on file documented as of this encounter Visit Diagnoses Not on filedocumented in this encounter Care Teams Electronic Transaction Implementer Relationship Specialty Start Date End Date No, Physician PCP - General 11/01/16 documented as of this encounter
--- OUTSIDE RECORDS SUMMARY | 2024-04-02 11:54 | XMS_ITS | Encounter Summary ---
Author Organization [facility] Healthcare Address [address] [place] [address] Care Team Providers Care Meter Maker Name Role Phone No, Physician Primary Care Provider [phone] Encounter Details Date Type Department Care Team (Latest Contact Info) Description 10/03/2020 11:18 PM CDT - 10/05/2020 10:45 PM CDT Hospital Encounter [address] [phone] Sohan Tuttle MD [address] [facility] [address] [place] [address] Prince Cruz MD [address] [facility] [phone] [place] [address] Theodore Mohr MD [address] [facility] [address] [place] [address] Elevated troponin (Primary Dx); Peripartum cardiomyopathy Discharge Disposition: Discharge to home or self [...] of Binge Drinking Not on file 08/11 Brave Depression Scale Answer Date Recorded Brave Depression Scale Total 0 07/05/2020 The thought of harming myself has occurred to me . 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 Gender Identity Female 12/02/2022 6:55 PM CDT Sexual Orientation Straight 12/02/2022 6: 55 PM CDT documented as of this encounter Last Filed Vital Signs Vital Sign Reading Time Taken Comments Blood Pressure 123/72 10/05/2020 8:00 PM CDT Pulse 67 10/05/2020 8:00 PM CDT Temperature 36.9 ??C (98.5 ??F) 10/05/2020 8:00 PM CD T Respiratory Rate 16 10/05/2020 8:00 PM CDT Oxygen Saturation 98% 10/05/2020 8:00 PM CDT Inhaled Oxygen Concentration - - Weight 92.6 kg (204 lb 3.2 oz) 10/04/2020 12:00 AM CDT Height 165.1 cm (5' 5 ) 10/04/2020 12:00 AM CDT Body Mass Index 33.98 10/04/2020 12:00 AM CDT documented in this encounter Discharge Diagnoses Diagnosis Diseases of the circulatory system complicating the puerperium - DISEASES OF THE CIRCULATORY SYSTEM COMPLICATING THE PUERPERIUM Non-ST elevation (NSTEMI) myocardial infarction (CMS/HCC) (HCC) - NON-ST ELEVATION (NSTEMI) MYOCARDIAL INFARCTION Drug use complicating the puerperium - DRUG USE COMPLICATING THE PUERPERIUM Cannabis use, unspecified, uncomplicated - CANNABIS USE, UNSPECIFIED, UNCOMPLICATED Unspecified pre-eclampsia, complicating the puerperium - UNSPECIFIED PRE- ECLAMPSIA, COMPLICATING THE PUERPERIUM Personal history of nicotine dependence - PERSONAL HISTORY OF NICOTINE DEPENDENCE documented in this encounter Discharge Summaries * Katharine Srinivasan MD - 10/05/2020 10:01 PM CDT Inpatient Discharge Summary BRIEF OVERVIEW Admitting Provider: Sohan Tuttle MD Discharge Provider: Prince Cruz MD Admission Date: 10/03/2020 Discharge Date: 10/05/2020 Admission Location: [facility] Problems/Diagnoses: Principal Problem: Elevated troponin Resolved Problems: No resolved hospital problems. DETAILS OF HOSPITAL STAY Presenting Problem/History of Present Illness: Steve Shi is a 25 y.o. female who is 5 days post after a prolonged labor course complicated by decelerations. Her course was complicated by IUGR and marijuana use. Her only other significant symptom during was lower extremity edema. She denies resting shortness of breath and dyspnea on exertion. She had no history of pre-eclampsia or eclampsia. Her course was uncomplicated and she was discharged to home. She is now presenting with headacheover the last few days that has been aggravated by lights and associated with an elevated blood pressure as well as nausea and vomiting. In the last two days prior to presentation she noted increasing shortness of breath with exertion and worsening swelling of her legs. She denies orthopnea, PND, abdominal swelling, palpitations, chest pain and pressure, syncope and pre-syncope. No cough, fevers,chills or sweats. She presented to [facility] ED and was found to be bradycardic with rates in the low 50s with BP 144/72 mmHg. Oxygen saturation was 91% and she was placed on nasal cannula. Initial laboratory evaluation was notable for NT-pro BNP of 1586 and hs-trop of 125. Renal function and electrolytes were within normal limits. EKG was notable for sinus bradycardia with no acute ST segment or T wave changes. CXR notable for no pulmonary edema or consolidations but prominent meri. She was transferred here for further evaluation. ?? Maternal Cardiology has been consulted for her symptoms of dyspnea and elevated NT-pro BNP. She confirms the above story and currently denies chest pain and pressure. She has no family history of early FL. Her sister was diagnosed with ToF at 2 months. She has no family history of autoimmune or rheumatic disease. She denies a personal history of these as well. No recent joint pain and swelling. No rashes or nail changes. Hospital Course: #C/f NSTEMI: Patient was admitted with SOB and LOZANO. Her labs on admission were notable for an elevated BNP (1586) and troponin (86 > 125). EKG was without ST elevations or other signs of FL, but was notable for sinus bradycardia. Cardiology was consulted and performed a bedside echo with concern for pulmonary hypertension. She was diuresed with lasix. Her troponin continued to rise to a max of 762. CT PE was performed and was negative. She underwent a formal echo with diastolic dysfunction and PASP 35-40mm. Per cardiology recommendation, she was placed on a heparin drip and underwent a cardiac cath on 10/05 with no occlusions. She was discharged home on enalapril 5 mg BID and with plan forclose cardiology follow-up. #Substance use > Tobacco use attempting to cut back. Patient reports MJ use throughout her , UDS (+) for oxycodone (prescribed medication) on admission. #Depression > patient had been previously counseled, declined medications ?? Active Issues Requiring Follow-up: -BP monitoring, enrolled -Cardiology f/u as outpatient (will call pt on Thursday) -OB f/u with primary OB Test Results Pending at Discharge: Pending Labs Order Current Status aPTT Collected (10/05/20 0816) Operative Procedures Performed: Procedure(s): LEFT HEART CATHETERIZATION WITH CORONARY ANGIOGRAPHY AND WITH OR WITHOUT LEFT VENTRICULOGRAM 66864 Pertinent Test Results: Recent Labs Lab Units 10/04/20 1629 10/04/20 0704 10/03/20 1912 WBC K/cumm 8.1 9.7 8.5 HEMOGLOBIN g/dL 10.6* 10.8* 10.4* HEMATOCRIT % 32.5* 33.4* 33.1* PLATELETS K/cumm 263 307 289 Recent Labs Lab Units 10/04/20 1629 10/04/20 0704 10/03/20 1912 SODIUM mmol/L 138 142 139 POTASSIUM PLASMA mmol/L See Comment 3.8 4.2 CHLORIDE mmol/L 102 106 104 CO2 mmol/L 24 24 23 BUN SERUM mg/dL 13 13 14 CREATININE mg/dL 1.04 1.03 0.94 GLUCOSE mg/dL 104 87 76 CALCIUM mg/dL 8.4* 9.0 9.2 Discharge Details Physical Exam at Discharge: Discharge Condition: stable Pulse: 67 Resp: 16 BP: 123/72 Temp: 98.5 ??F Weight: 204 lb 3.2 oz (92.6 kg) Pertinent Exam Findings at Discharge: See physical exam from day of discharge progress note Discharge Disposition: Discharge to home/self-care Code Status at Discharge: Full Discharge Medications: Current Medications TAKE these medications acetaminophen 500 mg capsule Take 2 capsules (1,000 mg total) by mouth every 6 (six) hours For: pain azelaic acid 15 % gel APPLY TO FACE TWICE A DAY enalapril 5 mg tablet Take 1 tablet (5 mg total) by mouth 2 (two) times a day Commonly known as: VASOTEC ibuprofen 600 mg tablet Take 1 tablet (600 mg total) by mouth every 6 (six) hours For: cramps Commonly known as: ADVIL,MOTRIN nicotine [address] 1 patch on the skin daily Commonly known as: NICODERM CQ oxyCODONE 5 mg immediate release tablet Take 1 tablet (5 mg total) by mouth every 4 (four) hours as needed for pain For: pain Commonly known as: ROXICODONE PNV with [id number] 27 mg iron- 1 mg tablet Take 1 tablet by mouth daily For: treatment to prevent vitamin deficiency polyethylene glycol 17 gram packet Take 1 packet (17 g total) by mouth daily as needed for constipation For: constipation Commonly known as: MIRALAX 28 mg iron- 800 mcg tablet Take 1 tablet by mouth daily Generic drug: vitamin ferrous fumarate-folic sertraline 50 mg tablet Take 1 tablet (50 mg total) by mouth daily For: anxiousness associated with depression Commonly known as: ZOLOFT terconazole 80 mg vaginal suppository Insert 80 mg into the vagina nightly Commonly known as: TERAZOL 3 Outpatient Follow-Up: Cosigned by Prince Cruz MD at 10/07/2020 9:49 AM CDT documented in this encounter Discharge Instructions * Discharge Instructions* Katharine Srinivasan MD - 10/05/2020 10:01 PM CDT Welcome to at home blood pressure monitoring, a program designed to track your blood pressure from your home. This is important for your health because your blood pressures can still be high after you go home. We hope to catch rising blood pressure before it becomes a problem so we can keep you outof the hospital and safe. You will receive text messages to send in your blood pressure and you will send us your value back by text. You will get feedback on your blood pressure by text so you know what to do next. We confirmed your consent to text messaging in the hospital. As a reminder, textingis not secure and therefore may be seen by others. By choosing to communicate via text, you are aware of this possibility. Message and data rates may apply. Do not use text for urgent issues or emergencies. If there are any issues with your blood pressure cuff or with the program, please call your doctor. If you have non-urgent questions unrelated to the at home blood pressure monitoring program,please call your doctor. If you have an emergency, please call 911 or go to the nearest Emergency Department. Discharge Instructions - Vaginal Delivery Call Your Doctor If: * You have [...] jj bottle for the next 5-7 days. Feeding: : * Follow unrestricted . Feed your baby based on baby???s hunger cues (or at least 8-12feedings per 24 hours). Do NOT supplement unless instructed by [employer] L[employer]er. * Call your [employer] Lamp [employer]er if your baby has poor eating habits (examples: feedings decrease, no feedings in 6 hours, or spits up more than ?? of their feeding for 2 consecutive feedings). * Once your baby is 5-6 days old, you should expect at least 5 wet diapers and 3 soiled diapers perday. * Primary OB Doctor - BLOOD PRESSURE CHECK Call your primary OB doctor to schedule an appointment for a blood pressure check in 5 -10 days * Discharge Instr - Activity* Charly Millard RN - 10/05/2020 10:24 PM CDT Activity as tolerated documented in this encounter Medications at Time of Discharge acetaminophen 500 mg capsuleIndication s:Pain Take 2 capsules (1,000 mg total) by mouth every 6 (six) hours 120 tablet 3 09/30/2020 3 azelaic acid 15 % gel APPLY TO FACE TWICE A DAY 08/01/2020 4 enalapril (VASOTEC) 5 mg tablet Take 1 tablet (5 mg total) by mouth 2 (two) times a day 60 tablet 11 10/05/2020 1 ibuprofen (ADVIL,MOTRIN) 600 mg tabletIndications :Cramps Take 1 tablet (600 mg total) by mouth every 6 (six) hours 120 tablet 3 09/30/2020 3 nicotine (NICODERM CQ) [address] 1 patch on the skin daily 30 patch 04/04/2020 1 oxyCODONE (ROXICODONE) 5 mg immediate release tabletIndications :Pain Take 1 tablet (5 mg total) by mouth every 4 (four) hours as needed for pain 20 tablet 09/30/2020 1 PNV with [id number] 27 mg iron- 1 mg tabletIndications :Vitamin Deficiency Prevention Take 1 tablet by mouth daily 60 tablet 3 09/30/2020 3 polyethylene glycol (MIRALAX) 17 gram packetIndications :constipation Take 1 packet (17 g total) by mouth daily as needed for constipation 30 packet 3 09/30/2020 3 polyethylene glycol (MIRALAX) 17 gram/dose powder Take 17 g by mouth daily 510 g 02/03/2020 4 28 mg iron- 800 mcg tablet Take 1 tablet by mouth daily 03/06/2020 1 sertraline (ZOLOFT) 50 mg tabletIndications :Anxiety with Depression Take 1 tablet (50 mg total) by mouth daily 30 tablet 5 04/04/2020 1 terconazole (TERAZOL 3) 80 mg vaginal suppository Insert 80 mg into the vagina nightly 1 documented as of this encounter Ordered Prescriptions Prescription Sig Dispense Quantity Refills Last Filled Start Date End Date enalapril (VASOTEC) 5 mg tablet Take 1 tablet (5 mg total) by mouth 2 (two) times a day 60 tablet 11 10/05/2020 10/12/2020 documented in this encounter Discharge Disposition Disposition Code Departure Means Destination Discharge to home or self care documented in this encounter Progress Notes * Mag Geller MD - 10/05/2020 10:03 PM CDT MD to bedside to review plan of care. I spoke with Dr. Munson of maternal cardiology. Left heart catheterization was without evidence of coronary obstruction or dissection. I reviewed the findings with Ms. Shi. Plan is to start enalapril 5 mg PO BID. She has consented to remote blood pressure mo nitoring. She will be contacted to schedule follow up with maternal cardiology on Sunday 10/08. We discussed that she can continue to follow up with her regular OB. I recommended a preconception counseling visit to review risk mitigation strategies for future pregnancies. We reviewed return precautions for her catheterization site as well as obstetric and cardiac returnprecautions. Plan for discharge tonight. Mag Geller MD Maternal- Medicine Fellow Department of Obstetrics and Gynecology Pager: [phone] * Liliana Munosn MD - 10/05/2020 3:50 PM CDT Cardiology Daily Progress Note - Maternal Cardiology Chief complaint: shortness of breath, headache Interval History: Mild dyspnea overnight. hsTnI peaked at 762. Objective Vital Signs: 24hr Min/Max: Temp Min: 36.7 ??C (98.1 ??F) Max: 37.2 ??C (98.9 ??F) Pulse Min: 49 Max: 102 BP Min: 113/74 Max: 141/83 Resp Min: 16 Max: 19 SpO2 Min: 85 % Max: 99 % Most Recent: Vitals: 10/05/20 1515 BP: 141/83 Pulse: 52 Resp: 19 Temp: 36.9 ??C (98.4 ??F) SpO2: 98% Intake/Output: Intake/Output Summary (Last 24 hours) at 10/05/2020 1551 Last data filed at 10/04/2020 2241 Gross per 24 hour Intake 308.34 ml Output 1650 ml Net -1341.66 ml Physical Exam: General appearance: no acute distress HEENT: NCAT, MMM, anicteric Lungs: CTAB, no w/r/r, non-labored Heart: bradycardic, regular, S1, S2 normal, no murmur, rub or gallop. JVP not elevated, no LE edema Abdomen: soft, NT/ND; bowel sounds normal Extremities: extremities normal, warm and well-perfused, equal pulses Skin: warm and dry Neurologic: No abnormal movements, non-focal exam Current Medications: Current Facility-Administered Medications: ??? acetaminophen (TYLENOL) tablet 1,000 mg, 1,000 mg, oral, Q6H PRN, 1,000 mg at 10/05/20 0838 ??? aspirin chewable tablet 162 mg, 162 mg, oral, Once ??? dextrose 5% and Lactated Ringer's infusion, 50 mL/hr, intravenous, Continuous, Held at ??? heparin 1,000 unit/mL injection 3,700 Units, 40 Units/kg, intravenous, Q6H PRN OR heparin 1,000 unit/mL injection 7,400 Units, 80 Units/kg, intravenous, Q6H PRN ??? heparin in 0.45% sodium chloride 25,000 units/250 mL (100 units/mL) infusion (premix), 0-33 Units/kg/hr, intravenous, Titrated, Stopped at 10/05/20 1520 ??? metoprolol tartrate (LOPRESSOR) immediate release tablet 12.5 mg, 12.5 mg, oral, BID, 12.5 mg at 10/04/20 2103 ??? ondansetron ODT (ZOFRAN-ODT) disintegrating tablet 4 mg, 4 mg, oral, Q6H PRN OR ondansetron(ZOFRAN) injection 4 mg, 4 mg, intravenous, Q6H PRN ??? sodium chloride 0.9% flush 0.5-20 mL, 0.5-20 mL, intra-catheter, Q8H KASIE, 10 mL at 10/04/20 1638 ??? sodium chloride 0.9% flush 0.5-20 mL, 0.5-20 mL, intra-catheter, PRN, 10 mL at 10/05/20 1016 ??? sodium chloride 0.9% infusion, 30 mL/hr, intravenous, Continuous, Last Rate: 30 mL/hr at 10/05/20 1537, 30 mL/hr at 10/05/20 1537 Lab/Radiology/Diagnostic Review: Labs: Recent Labs Lab Units 10/04/20 1629 10/04/20 0704 10/04/20 0704 06/23191110/03/20 19109/29/20 0443 09/29/20 0443 HEMOGLOBIN g/dL 10.6* < > 10.8* < > 10.4* < > 10.4* HEMATOCRIT % 32.5* < > 33.4* < > 33.1* < > 32.3* WBC K/cumm 8.1 < > 9.7 < > 8.5 < > 10.7* PLATELETS K/cumm 263 -- 307 -- 289 -- 189 < > = values in this interval not displayed. Recent Labs Lab Units 10/04/20 1629 10/04/20 1232 10/04/20 0704 10/03/20 2142 SODIUM mmol/L 138 -- < > -- POTASSIUM PLASMA mmol/L See Comment -- < > -- CHLORIDE mmol/L 102 -- < > -- CO2 mmol/L 24 -- < > -- ANIONGAP mmol/L 12 -- < > -- BUN SERUM mg/dL 13 -- < > -- CREATININE mg/dL 1.04 -- < > -- CALCIUM mg/dL 8.4* -- < > -- MAGNESIUM mg/dL -- 4.5* -- 2.5 < > = values in this interval not displayed. Recent Labs Lab Units 10/04/20 1629 ALBUMIN g/dL 3.1* ALK PHOS Units/L 85 AST Units/L See Comment ALT Units/L See Comment BILIRUBIN TOTAL mg/dL <0.2 Recent Labs Lab Units 10/05/20 0804 APTT sec 103* Recent Labs Lab Units 10/03/20 191 LACTATE DEHYDROGENASE (LDH) Units/L 271* Cultures: Lab Results Component Value Date MICROBIOLOGY (.) 09/17/2020 Final Report: Streptococcus agalactiae (Group B Streptococci) * * * * * * * * * * * * * * * * * * * * Resistance to penicillin in Group B Streptococcus has not been reported. Group B Streptococci are universally susceptible to beta-lactam antibiotics and vancomycin. Routine susceptibility testing is not performed. In penicillin allergic patients, please contact the laboratory at [phone] to request susceptibility testing * * * * * * * * * * * * * * * * * * * * MICROBIOLOGY Final Report: No growth 04/04/2020 MICROBIOLOGY Final Report: No growth 08/05/2018 MICROBIOLOGY Final Report: No growth 08/05/2018 Assessment/Plan 1. NSTEMI - Presented with dyspnea, elevated troponin and echocardiogram with regional wall motion abnormalities. Given that she is , concern for SCAD. She does have preeclampsia; however, wall motion abnormalities are unusual in the setting of preeclampsia. Plan for [facility] today. Discussed with patient, treatment for SCAD consists of medical therapy. If she does have SCAD, change metoprolol tartrate to 12.5 mg metoprolol XL given bradycardia. If she does not have SCAD, recommend enalapril 10 mg BID for hypertension, can stop metoprolol. 2. Preeclampsia. If she does not have SCAD, recommend enalapril 5 mg BID for hypertension, can stopmetoprolol. Please call with additional questions or concerns. Pending no concerns following cardiac cath, she can be discharged from a cardiology perspective. Will arrange for follow up in 1-2 weeks. Liliana Munson MD 3:51 PM 10/05/20 * Farrah Aguirre MD - 10/05/2020 6:45 AM CDT Antepartum Progress Note Gestational Age: 40w1d Admission Date: 10/03/2020 Length of stay: 2 Admission Diagnosis: NSTEMI SUBJECTIVE -One brief episode of SOB overnight, no CP/palpitations/dizziness/O2 requirement, improved without intervention and exam reassuring -Reports active movement. No vaginal bleeding/leakage of fluid/contractions. - continues on heparin drip, most recent PTT therapeutic at 75 -Overall feeling very well this morning with no complaints Review of Systems Negative except as per above. OBJECTIVE Vitals: Temp Min: 98.3 ??F Max: 99.1 ??F Pulse Min: 49 Max: 102 BP Min: 113/74 Max: 150/93 Resp Min: 16 Max: 18 SpO2 Min: 85 % Max: 99 % FHR: not applicable [place]: not applicable Physical Exam General: No acute distress. Appears stated age and cooperative. Cardiovascular: Regular rate and rhythm. No murmurs, rubs, gallops. Lungs: Non-labored. Clear to auscultation bilaterally. No wheezing/crackles appreciated. Abdomen: Soft, non-tender, gravid. Extremities: Warm and well-perfused. No bilateral lower extremity edema or calf tenderness. Pelvic: Deferred. Neurologic: Alert and oriented x4, non-focal Lab Review: Recent Results (from the past 24 hour(s)) Troponin I high-sensitivity Collection Time: 10/04/20 7:04 AM Result Value Ref Range Trop I hs 711 (Critical) <=17 ng/L CBC with auto differential Collection Time: 10/04/20 7:04 AM Result Value Ref Range WBC 9.7 3.8 - 9.9 K/cumm Hgb 10.8 (L) 11.9 - 15.5 g/dL Hct 33.4 (L) 35.6 - 45.5 % Plt 307 150 - 400 K/cumm MPV 11.1 9.1 - 12.3 fL RBC 4.01 3.90 - 5.20 M/cumm MCV 83.3 81.3 - 96.4 fL MCH 26.9 (L) 27.1 - 33.3 pg MCHC 32.3 32.3 - 35.7 g/dL RDW CV 13.7 11.1 - 14.9 % RDW SD 41.8 35.7 - 48.1 fL NRBC abs 0.00 0.00 - 0.01 K/cumm Comprehensive metabolic panel Collection Time: 10/04/20 7:04 AM Result Value Ref Range Sodium 142 135 - 145 mmol/L Potassium, pl 3.8 3.3 - 4.9 mmol/L Chloride 106 97 - 110 mmol/L CO2 24 22 - 32 mmol/L Anion gap 12 2 - 15 mmol/L BUN 13 8 - 25 mg/dL Creatinine 1.03 0.60 - 1.10 mg/dL Glucose 87 70 - 199 mg/dL Calcium 9.0 8.5 - 10.3 mg/dL Bilirubin, total 0.2 0.1 - 1.2 mg/dL Protein, pl 6.6 6.5 - 8.5 g/dL Albumin 3.5 3.5 - 5.0 g/dL Alk phos 104 40 - 130 Units/L ALT 40 7 - 45 Units/L AST 45 10 - 45 Units/L Differential, auto Collection Time: 10/04/20 7:04 AM Result Value Ref Range Neutrophil abs 7.5 (H) 1.7 - 6.5 K/cumm Imm gran abs 0.1 0.0 - 0.1 K/cumm Lymphocyte abs 1.5 0.8 - 3.3 K/cumm Monocyte abs 0.6 0.2 - 0.8 K/cumm Eosinophil abs 0.0 0.0 - 0.5 K/cumm Basophil abs 0.0 0.0 - 0.1 K/cumm Neutrophil pct 77.4 % Imm gran pct 0.8 % Lymphocyte pct 14.9 % Monocyte pct 6.6 % Eosinophil pct 0.1 % Basophil pct 0.2 % Troponin I high-sensitivity Collection Time: 10/04/20 9:40 AM Result Value Ref Range Trop I hs 479 (Critical) <=17 ng/L Troponin I high-sensitivity Collection Time: 10/04/20 12:32 PM Result Value Ref Range Trop I hs 762 (Critical) <=17 ng/L Magnesium Collection Time: 10/04/20 12:32 PM Result Value Ref Range Magnesium 4.5 (H) 1.4 - 2.5 mg/dL Troponin I high-sensitivity Collection Time: 10/04/20 4:29 PM Result Value Ref Range Trop I hs 450 (Critical) <=17 ng/L CBC without differential Collection Time: 10/04/20 4:29 PM Result Value Ref Range WBC 8.1 3.8 - 9.9 K/cumm Hgb 10.6 (L) 11.9 - 15.5 g/dL Hct 32.5 (L) 35.6 - 45.5 % Plt 263 150 - 400 K/cumm MPV 12.3 9.1 - 12.3 fL RBC 3.89 (L) 3.90 - 5.20 M/cumm MCV 83.5 81.3 - 96.4 fL MCH 27.2 27.1 - 33.3 pg MCHC 32.6 32.3 - 35.7 g/dL RDW CV 14.2 11.1 - 14.9 % RDW SD 41.3 35.7 - 48.1 fL NRBC abs 0.00 0.00 - 0.01 K/cumm Comprehensive metabolic panel Collection Time: 10/04/20 4:29 PM Result Value Ref Range Sodium 138 135 - 145 mmol/L Potassium, pl See Comment 3.3 - 4.9 mmol/L Chloride 102 97 - 110 mmol/L CO2 24 22 - 32 mmol/L Anion gap 12 2 - 15 mmol/L BUN 13 8 - 25 mg/dL Creatinine 1.04 0.60 - 1.10 mg/dL Glucose 104 70 - 199 mg/dL Calcium 8.4 (L) 8.5 - 10.3 mg/dL Bilirubin, total <0.2 0.1 - 1.2 mg/dL Protein, pl 6.1 (L) 6.5 - 8.5 g/dL Albumin 3.1 (L) 3.5 - 5.0 g/dL Alk phos 85 40 - 130 Units/L ALT See Comment 7 - 45 Units/L AST See Comment 10 - 45 Units/L aPTT Collection Time: 10/04/20 5:59 PM Result Value Ref Range aPTT 25 (L) 27 - 37 sec aPTT Collection Time: 10/05/20 1:59 AM Result Value Ref Range aPTT 75 (H) 27 - 37 sec ASSESSMENT/PLAN Steve Shi is a 25 y.o. at 40w1d admitted for NSTEMI. #NSTEMI - Trop 86->125>>711->762->450->d/c trend - Cr 0.9>1.03>1.04, plts 307, hgb 10, LFTs wnl - BNP 1586 - CT PE negative - fTTE: diastolic dysfunction, PASP 35-40mm - s/p lasix IV x 1 on 10/03, s/p Mag x 24h for concern for Pre-E given MR BP and headache; subsequently normotensive -Per cards consult: EKG if symptoms, cardiac cath 10/05, heparin drip, metop 12.5 BID -NPO since midnight for right heart cath today #Substance use - Tob use attempting to cut back - MJ use throughout , no other drugs #Depression - Declines zoloft #COVID-19 vaccination: Not previously received: Needs counseling regarding vaccination Dispo: pending right heart cath Mahi Aguirre MD 10/05/20 Cosigned by Prince Cruz MD at 10/05/2020 10:49 AM CDT Associated attestation - Prince Cruz MD - 10/05/2020 10:49 AM CDT I have seen and examined the patient on 10/05/20. I agree with the findings and plan of care as documented in the resident's/fellow's note. Improving symptomatically Plan [facility] today * Mary Diego MD - 10/05/2020 2:27 AM CDT R2 OB Update: To room to evaluate patient as she reported an episode of shortness of breath. Reports this period was brief and she felt like it was hard to catch her breath and she felt like she was breathing faster. Denies any chest pain, palpitations, dizziness, lightheadedness. Reports she fell asleep and it went away. No complaints currently. Vitals stable and satting 96-100% on RA Exam NAD, resting comfortably RRR, no m/r/g, non -labored Ex: WWP, no peripheral edema Plan - NPO @ midnight for R heart cath - Continue Metop 12.5 BID - Continue tele Mary Diego MD Obstetrics & Gynecology, PGY-2 * Farrah Aguirre MD - 10/04/2020 5:20 PM CDT R2 OB Update Labs reviewed and plan discussed with Maternal Cards as below. Lab Results Component Value Date TROPIHS 762 (Critical) 10/04/2020 TROPIHS 711 (Critical) 10/04/2020 TROPIHS 637 (Critical) 10/04/2020 -Repeat labs (CBC, CMP, trop) drawn and pending now -Continue to trend troponin until downtrends, suspect will soon as it is plateauing -start heparin drip now -NPO after midnight for right heart cath in AM -Start metop IR 12.5mg BID -D/c trend EKG; only obtain EKG if chest pain or symptoms Dr. Mohr aware. Mahi Aguirre MD 5:23 PM * Sheree Mcneal MD - 10/04/2020 8:48 AM CDT R4 OB Seen at bedside with Dr. Cruz 25yo PPD#5 s/p w/ bradycardia and ^BP c/f preE vs PPCM vs concern for PE. Pt states breathing improved. Denies CP or chest pressure. Denies palpitations. Has mild LOZANO. BP 132/73 Pulse 80 Temp 99.1 ??F (Oral) Resp 18 Ht 165.1 cm (5' 5 ) Wt 204 lb 3.2 oz (92.6 kg) LMP 12/27/2019 SpO2 91% BMI 33.98 kg/m?? A&Ox3 Non-labored breathing Resting in bed -s/p IV lasix, with diuresis, continue PRN -Plan for CT PE urgently to r/o PE -Plan for FARZAD today -f/up cards recs -On Mg, due to concern for preE, plan to continue for 24hr unless clinical concern for mental or respiratory status. Addendum 9:55 AM Review CTPE without acute PE, and with mild pulm/effusions Will repeat Mg level now given increasing Cr, cont Mg checks Plan for repeat labs @1630 Plan for lasix PRN based on sx/VS F/up cards recs re: PO meds and POC Sheree Mcneal MD Addendum 10:04 AM Mag check completed and wnl, 2+ reflexes in bilateral biceps and patellar Cards paged, awaiting further recs Mahi Aguirre MD Cosigned by Prince Cruz MD at 10/04/2020 10:30 AM CDT Associated attestation - Prince Cruz MD - 10/04/2020 10:30 AM CDT I have seen and examined the patient on 10/04/20. I agree with the findings and plan of care as documented in the resident's/fellow's note. Plan PE CT - negative for PE Feeling better. Denies chest pain/pressure/arrhythmia Formal TTE pending * Mary Diego MD - 10/04/2020 2:57 AM CDT OB R2 Update: Called by lab with critical value. Reviewed labs notable for uptrending Trop. Called maternal hand outside cutter director of strategic communications. Trop T hs: 86 (1911) > 125 (2141) Trop I hs: 637 @ 0142 Patient currently HDS, previously on 2L NC. Currently on RA with O2 sats 100%. Denies chest pain, tightness. Recs: - Trend trops q4h and obtain with EKG - Last EKG reassuring and reviewed by cards - Low threshold to obtain CT PE which is also on ddx and could explain elevated trops with elevatedestimated PASP 72 mmHg on bedside echo Dr. Tuttle updated. Mary Diego MD Obstetrics & Gynecology, PGY-2 documented in this encounter H&P Notes * Kendell Ingram MD - 10/05/2020 3:53 PM CDT I have reviewed the H&P, examined the patient, and endorse the findings as written. Plan of Care : Based on the above findings, I consider Steve Shi to be an acceptable risk for :Procedure(s): LEFT HEART CATHETERIZATION WITH CORONARY ANGIOGRAPHY AND WITH OR WITHOUT LEFT VENTRICULOGRAM 90627 Source Note - Solitario Elena MD - 10/04/2020 12:44 AM CDT Cardiology Consult Note - Maternal Cardiology Patient Name: Steve Shi : 1995 Date of Service: 10/04/20 Requesting Attending: Sohan Tuttle MD Reason for Consult: No data found Chief Complaint: shortness of breath HPI Steve Shi is a 25 y.o. female who is 5 days post after a prolonged labor course complicated by decelerations. Her course was complicated by IUGR and marijuana use. Her only other significant symptom during was lower extremity edema. She denies resting shortness of breath and dyspnea on exertion. She had no history of pre-eclampsia or eclampsia. Her course was uncomplicated and she was discharged to home. She is now presenting with headacheover the last few days that has been aggravated by lights and associated with an elevated blood pressure as well as nausea and vomiting. In the last two days prior to presentation she noted increasing shortness of breath with exertion and worsening swelling of her legs. She denies orthopnea, PND, abdominal swelling, palpitations, chest pain and pressure, syncope and pre-syncope. No cough, fevers,chills or sweats. She presented to [facility] ED and was found to be bradycardic with rates in the low 50s with BP 144/72 mmHg. Oxygen saturation was 91% and she was placed on nasal cannula. Initial laboratory evaluation was notable for NT-pro BNP of 1586 and hs-trop of 125. Renal function and electrolytes were within normal limits. EKG was notable for sinus bradycardia with no acute ST segment or T wave changes. CXR notable for no pulmonary edema or consolidations but prominent meri. She was transferred here for further evaluation. Maternal Cardiology has been consulted for her symptoms of dyspnea and elevated NT-pro BNP. She confirms the above story and currently denies chest pain and pressure. She has no family history of early FL. Her sister was diagnosed with ToF at 2 months. She has no family history of autoimmune or rheumatic disease. She denies a personal history of these as well. No recent joint pain and swelling. No rashes or nail changes. Review of Systems: Review of systems as per HPI and, otherwise all other systems are negative. PMHX: has a past medical history of Depression and Urinary tract infection. PSHX: has a past surgical history that includes Ear Surgery. Family Hx: family history includes Allergies in her maternal grandmother; Asthma in her mother; Other in her father. Social Hx: reports that she has quit smoking. She smoked 0.05 packs per day. She has never used smokeless tobacco. She reports current drug use. Drug: Marijuana. She reports that she does not drink alcohol. Allergies: No Known Allergies Home Medications: HOME MEDICATIONS : acetaminophen 500 mg capsule ibuprofen (ADVIL,MOTRIN) 600 mg tablet nicotine (NICODERM CQ) 7 mg oxyCODONE (ROXICODONE) 5 mg immediate release tablet PNV with [id number] 27 mg iron- 1 mg tablet polyethylene glycol (MIRALAX) 17 gram packet 28 mg iron- 800 mcg tablet sertraline (ZOLOFT) 50 mg tablet terconazole (TERAZOL 3) 80 mg vaginal suppository Current Medications: enoxaparin, 40 mg, subcutaneous, Daily-2100 furosemide, 20 mg, intravenous, Once metoclopramide, 10 mg, oral, Once sodium chloride 0.9%, 0.5-20 mL, intra-catheter, Q8H KASIE dextrose 5% and Lactated Ringer's, 50 mL/hr, Last Rate: 50 mL/hr (10/04/204) magnesium sulfate, 2 g/hr, Last Rate: 2 g/hr (10/04/2044) Objective Vital Signs: 24hr Min/Max: Temp Min: 36.2 ??C (97.1 ??F) Max: 36.2 ??C (97.1 ??F) Pulse Min: 45 Max: 116 BP Min: 103/72 Max: 164/82 Resp Min: 15 Max: 26 SpO2 Min: 90 % Max: 100 % Most Recent: There were no vitals filed for this visit. Intake/Output: No intake or output data in the 24 hours ending 10/04/2044 Physical Exam: General appearance: no acute distress, obese HEENT: NCAT, MMM, anicteric Lungs: CTAB, no w/r/r, non-labored on nasal cannula Heart: RRR, S1, S2 normal, no murmur, rub or gallop. JVP minimally elevated, + LE edema Abdomen: soft, NT/ND; bowel sounds normal Extremities: extremities warm and well-perfused, equal pulses Skin: warm and dry Neurologic: No abnormal movements, non-focal exam Psych: Normal mood and affect Lab/Radiology/Diagnostic Review: Labs: Recent Labs Lab Units 10/03/20191109/29/20 0443 09/29/20 0443 09/27/20 0849 09/27/20 0849 HEMOGLOBIN g/dL 10.4* < > 10.4* < > 11.6* HEMATOCRIT % 33.1* < > 32.3* < > 36.2 WBC K/cumm 8.5 < > 10.7* < > 7.5 PLATELETS K/cumm 289 -- 189 -- 214 < > = values in this interval not displayed. Recent Labs Lab Units 10/03/20214110/03/201911 SODIUM mmol/L -- 139 POTASSIUM PLASMA mmol/L -- 4.2 CHLORIDE mmol/L -- 104 CO2 mmol/L -- 23 ANIONGAP mmol/L -- 13 BUN SERUM mg/dL -- 14 CREATININE mg/dL -- 0.94 CALCIUM mg/dL -- 9.2 MAGNESIUM mg/dL 2.5 -- Recent Labs Lab Units 10/03/201911 ALBUMIN g/dL 3.6 ALK PHOS Units/L 106 AST Units/L 35 ALT Units/L 34 BILIRUBIN TOTAL mg/dL 0.2 Recent Labs Lab Units 10/03/201911 LACTATE DEHYDROGENASE (LDH) Units/L 271* Cultures: Lab Results Component Value Date MICROBIOLOGY (.) 09/17/2020 Final Report: Streptococcus agalactiae (Group B Streptococci) * * * * * * * * * * * * * * * * * * * * Resistance to penicillin in Group B Streptococcus has not been reported. Group B Streptococci are universally susceptible to beta-lactam antibiotics and vancomycin. Routine susceptibility testing is not performed. In penicillin allergic patients, please contact the laboratory at [phone] to request susceptibility testing * * * * * * * * * * * * * * * * * * * * MICROBIOLOGY Final Report: No growth 04/04/2020 MICROBIOLOGY Final Report: No growth 08/05/2018 MICROBIOLOGY Final Report: No growth 08/05/2018 I personally reviewed the Telemetry images with the following findings: Sinus rhythm/ I personally reviewed the ECG images with the following findings: Sinus bradycardia, no acute ST segment or T wave changes. I personally reviewed the CXR and bedside TTE images with the following findings: CXR notable for no pulmonary edema or consolidations but prominent meri. Bedside echo with normal LV and RV systolic function. No wall motion abnormalities. RV mildly dilated. TR jet 4 m/s and IVC dilated with 50% collapse with inspiration. Estimated PASP 72 mmHg. Assessment/Plan Ms. Shi is a 25 y/o female who is 5 days post after a prolonged labor course complicated by decelerations. Her course was complicated by IUGR and marijuana use but nopreeclampsia or eclampsia. Her course was uncomplicated but she is now presenting with headaches and increasing shortness of breath with exertion as well as worsening swelling of her legs.Maternal Cardiology has been consulted for her symptoms of dyspnea and elevated NT-pro BNP. #. New onset shortness of breath with associated LE swelling #. Elevated NT-pro BNP #. Elevated hs-troponin, likely myocardial injury pattern #. Elevated PASP on bedside echo -presents 5 days post- from with worsening shortness of breath associated with LE swelling. Noted to have increased NT-pro BNP to 1500 with hs- trop of 150. EKG reassuring with no acute ST segment or T wave changes. CXR clear with likely hilar enlargement. She has no known cardiac history. Sister had ToF diagnosed in infancy. -bedside echo done with normal LV and RV systolic function by visualization. No wall motion abnormalities. RV mildly dilated. Doppler signal on tricuspid valve with TR jet of 4 m/s. IVC dilated with 50% collapse on inspiration. Estimated PASP 72 mmHg. -her presentation and symptoms post- along with her bedside echo evaluation are concerning for a picture of pulmonary HTN. Would suspect PAH, though other causes of pHTN cannot be ruled out at this time, including acute PE. Low likelihood of peripartum cardiomyopathy as LV systolic function appears normal. -she denies a history of autoimmune or rheumatologic disease and reports no family history. No current joint pains, swelling and skin and nail changes. -recommend formal echo in AM to further evaluate PA pressures -if elevated will likely need to send autoimmune serologic markers as well as RHC to evaluate hemodynamics and involvement of pulmonary HTN consult team -consider CT PE protocol to rule out pulmonary embolus given new oxygen requirement and elevated PApressures as well as elevated hs-troponin -recommend trial of IV lasix 20 mg and monitor urine output. Goal net negative 1-2 L -monitor electrolytes and renal function -trend troponin to peak with EKG. Once down trending no longer need to check unless she has worsening of symptoms or new chest pain/pressure. -telemetry We appreciate the opportunity to be involved in this patient's care. If after 5PM or on weekends, please page the hand outside cutter director of strategic communications with any questions or concerns. Solitario Elena MD Telemetry Tech, PGY-IV Maternal Cardiology 12:45 AM 10/04/20 Cosigned by Liliana Munson MD at 10/04/2020 5:01 PM CDT * Ml Herman NP - 10/05/2020 2:31 PM CDT I have reviewed the H&P, examined the patient, and endorse the findings as written. Plan of Care : Based on the above findings, I consider Steve Shi to be an acceptable risk for :Procedure(s): LEFT HEART CATHETERIZATION WITH CORONARY ANGIOGRAPHY AND WITH OR WITHOUT LEFT VENTRICULOGRAM [id number] Cosigned by Kendell Ingram MD at 10/05/2020 2:59 PM CDT Source Note - Solitario Elena MD - 10/04/2020 12:44 AM CDT Cardiology Consult Note - Maternal Cardiology Patient Name: Steve Shi : 1995 Date of Service: 10/04/20 Requesting Attending: Sohan Tuttle MD Reason for Consult: No data found Chief Complaint: shortness of breath HPI Steve Shi is a 25 y.o. female who is 5 days post after a prolonged labor course complicated by decelerations. Her course was complicated by IUGR and marijuana use.Her only other significant symptom during was lower extremity edema. She denies resting shortness of breath and dyspnea on exertion. She had no history of pre-eclampsia or eclampsia. Her course was uncomplicated and she was discharged to home. She is now presenting with headache over the last few days that has been aggravated by lights and associated with an elevated blood pressure as well as nausea and vomiting. In the last two days prior to presentation she noted increasing shortness of breath with exertion and worsening swelling of her legs. She denies orthopnea, PND, abdominal swelling, palpitations, chest pain and pressure, syncope and pre-syncope. No cough, fevers, chills or sweats. She presented to [facility] ED and was found to be bradycardic with rates inthe low 50s with BP 144/72 mmHg. Oxygen saturation was 91% and she was placed on nasal cannula. Initial laboratory evaluation was notable for NT-pro BNP of 1586 and hs-trop of 125. Renal function andelectrolytes were within normal limits. EKG was notable for sinus bradycardia with no acute ST segment or T wave changes. CXR notable for no pulmonary edema or consolidations but prominent meri. She was transferred here for further evaluation. Maternal Cardiology has been consulted for her symptoms of dyspnea and elevated NT-pro BNP. She confirms the above story and currently denies chest pain and pressure. She has no family history of early FL. Her sister was diagnosed with ToF at 2 months. She has no family history of autoimmune or rheumatic disease. She denies a personal history of these as well. No recent joint pain and swelling. No rashes or nail changes. Review of Systems: Review of systems as per HPI and, otherwise all other systems are negative. PMHX: has a past medical history of Depression and Urinary tract infection. PSHX: has a past surgical history that includes Ear Surgery. Family Hx: family history includes Allergies in her maternal grandmother; Asthma in her mother; Other in her father. Social Hx: reports that she has quit smoking. She smoked 0.05 packs per day. She has never used smokeless tobacco. She reports current drug use. Drug: Marijuana. She reports that she does not drink alcohol. Allergies: No Known Allergies Home Medications: HOME MEDICATIONS : acetaminophen 500 mg capsule ibuprofen (ADVIL,MOTRIN) 600 mg tablet nicotine (NICODERM CQ) 7 mg oxyCODONE (ROXICODONE) 5 mg immediate release tablet PNV with [id number] 27 mg iron- 1 mg tablet polyethylene glycol (MIRALAX) 17 gram packet 28 mg iron- 800 mcg tablet sertraline (ZOLOFT) 50 mg tablet terconazole (TERAZOL 3) 80 mg vaginal suppository Current Medications: enoxaparin, 40 mg, subcutaneous, Daily-2100 furosemide, 20 mg, intravenous, Once metoclopramide, 10 mg, oral, Once sodium chloride 0.9%, 0.5-20 mL, intra-catheter, Q8H KASIE dextrose 5% and Lactated Ringer's, 50 mL/hr, Last Rate: 50 mL/hr (10/04/204) magnesium sulfate, 2 g/hr, Last Rate: 2 g/hr (10/04/2044) Objective Vital Signs: 24hr Min/Max: Temp Min: 36.2 ??C (97.1 ??F) Max: 36.2 ??C (97.1 ??F) Pulse Min: 45 Max: 116 BP Min: 103/72 Max: 164/82 Resp Min: 15 Max: 26 SpO2 Min: 90 % Max: 100 % Most Recent: There were no vitals filed for this visit. Intake/Output: No intake or output data in the 24 hours ending 10/04/2044 Physical Exam: General appearance: no acute distress, obese HEENT: NCAT, MMM, anicteric Lungs: CTAB, no w/r/r, non-labored on nasal cannula Heart: RRR, S1, S2 normal, no murmur, rub or gallop. JVP minimally elevated, + LE edema Abdomen: soft, NT/ND; bowel sounds normal Extremities: extremities warm and well-perfused, equal pulses Skin: warm and dry Neurologic: No abnormal movements, non-focal exam Psych: Normal mood and affect Lab/Radiology/Diagnostic Review: Labs: Recent Labs Lab Units 10/03/20191109/29/20 0443 09/29/20 0443 09/27/20 0849 09/27/20 0849 HEMOGLOBIN g/dL 10.4* < > 10.4* < > 11.6* HEMATOCRIT % 33.1* < > 32.3* < > 36.2 WBC K/cumm 8.5 < > 10.7* < > 7.5 PLATELETS K/cumm 289 -- 189 -- 214 < > = values in this interval not displayed. Recent Labs Lab Units 10/03/20214110/03/201911 SODIUM mmol/L -- 139 POTASSIUM PLASMA mmol/L -- 4.2 CHLORIDE mmol/L -- 104 CO2 mmol/L -- 23 ANIONGAP mmol/L -- 13 BUN SERUM mg/dL -- 14 CREATININE mg/dL -- 0.94 CALCIUM mg/dL -- 9.2 MAGNESIUM mg/dL 2.5 -- Recent Labs Lab Units 10/03/201911 ALBUMIN g/dL 3.6 ALK PHOS Units/L 106 AST Units/L 35 ALT Units/L 34 BILIRUBIN TOTAL mg/dL 0.2 Recent Labs Lab Units 10/03/201911 LACTATE DEHYDROGENASE (LDH) Units/L 271* Cultures: Lab Results Component Value Date MICROBIOLOGY (.) 09/17/2020 Final Report: Streptococcus agalactiae (Group B Streptococci) * * * * * * * * * * * * * * * * * * * * Resistance to penicillin in Group B Streptococcus has not been reported. Group B Streptococci are universally susceptible to beta-lactam antibiotics and vancomycin. Routine susceptibility testing is not performed. In penicillin allergic patients, please contact the laboratory at [phone] to request susceptibility testing * * * * * * * * * * * * * * * * * * * * MICROBIOLOGY Final Report: No growth 04/04/2020 MICROBIOLOGY Final Report: No growth 08/05/2018 MICROBIOLOGY Final Report: No growth 08/05/2018 I personally reviewed the Telemetry images with the following findings: Sinus rhythm/ I personally reviewed the ECG images with the following findings: Sinus bradycardia, no acute ST segment or T wave changes. I personally reviewed the CXR and bedside TTE images with the following findings: CXR notable for no pulmonary edema or consolidations but prominent meri. Bedside echo with normal LV and RV systolic function. No wall motion abnormalities. RV mildly dilated. TR jet 4 m/s and IVC dilated with 50% collapse with inspiration. Estimated PASP 72 mmHg. Assessment/Plan Ms. Shi is a 25 y/o female who is 5 days post after a prolonged labor course complicated by decelerations. Her course was complicated by IUGR and marijuana use but nopreeclampsia or eclampsia. Her course was uncomplicated but she is now presenting with headaches and increasing shortness of breath with exertion as well as worsening swelling of her legs.Maternal Cardiology has been consulted for her symptoms of dyspnea and elevated NT-pro BNP. #. New onset shortness of breath with associated LE swelling #. Elevated NT-pro BNP #. Elevated hs-troponin, likely myocardial injury pattern #. Elevated PASP on bedside echo -presents 5 days post- from with worsening shortness of breath associated with LE swelling. Noted to have increased NT-pro BNP to 1500 with hs- trop of 150. EKG reassuring with no acute ST segment or T wave changes. CXR clear with likely hilar enlargement. She has no known cardiac history. Sister had ToF diagnosed in infancy. -bedside echo done with normal LV and RV systolic function by visualization. No wall motion abnormalities. RV mildly dilated. Doppler signal on tricuspid valve with TR jet of 4 m/s. IVC dilated with 50% collapse on inspiration. Estimated PASP 72 mmHg. -her presentation and symptoms post- along with her bedside echo evaluation are concerning for a picture of pulmonary HTN. Would suspect PAH, though other causes of pHTN cannot be ruled out at this time, including acute PE. Low likelihood of peripartum cardiomyopathy as LV systolic function appears normal. -she denies a history of autoimmune or rheumatologic disease and reports no family history. No current joint pains, swelling and skin and nail changes. -recommend formal echo in AM to further evaluate PA pressures -if elevated will likely need to send autoimmune serologic markers as well as RHC to evaluate hemodynamics and involvement of pulmonary HTN consult team -consider CT PE protocol to rule out pulmonary embolus given new oxygen requirement and elevated PApressures as well as elevated hs-troponin -recommend trial of IV lasix 20 mg and monitor urine output. Goal net negative 1-2 L -monitor electrolytes and renal function -trend troponin to peak with EKG. Once down trending no longer need to check unless she has worsening of symptoms or new chest pain/pressure. -telemetry We appreciate the opportunity to be involved in this patient's care. If after 5PM or on weekends, please page the hand outside cutter director of strategic communications with any questions or concerns. Sloitario Elena MD Telemetry Tech, PGY-IV Maternal Cardiology 12:45 AM 10/04/20 Cosigned by Liliana Munson MD at 10/04/2020 5:01 PM CDT * Sohan Tuttle MD - 10/04/2020 12:04 AM CDT H&P Chief Complaint: SOB,LOZANO Provider: [facility] HPI: Steve Shi is a 25 y.o. female who is POD#6 pLTCS. Her was complicated byIUGR and MJ use. Patient underwent an uncomplicated pLTCS on 09/28/20. She presented to [facility] with SOB that woke her up from sleep on 10/03/20. Patient reports it was difficult to breath and she was having to take shallow breaths. Feels her SOB has been intermittent. Denies any wheezing, orthopnea, or dyspnea with exertion. SOB not improved by sitting up. Denies any chest pain/tightness/pressure, palpitations, fevers. She presented with HR in 40s. Patient has also been having LOZANO, currently now 5/10. At OSH, patient was having MR blood pressures.She received tylenol, toradol, and compazine for her LOZANO. She received 2g bolus and started on Mg 1g/hr for c/f PreE. Per transport, she was very lethargic en route and would open eyes to sternal rub so she was admitted to L&D. On presentation, patient awake and moderately engaged in conversation, answering questions appropriately. Reports her LOZANO has returned and still 5/10 localized to frontal region without vision changes. Denies a history of prior HAs. OB History Para Term AB Living 1 1 1 0 0 1 SAB TAB Ectopic Multiple Live Births 0 0 0 0 1 # Outcome Date GA Lbr Smith/2nd Weight Sex Delivery Anes PTL Lv 1 Term 09/28/20 40w1d 3.35 kg (7 lb 6.2 oz) F CS-LTranv EPI N PATRICK Complications: Intolerance Name: JUDAH SHI Apgar1: 8 Apgar5: 9 ENERGY ANALYST History: Patient's last menstrual period was 12/27/2019. Past Medical History: Diagnosis Date ??? Depression ??? Urinary tract infection Chronic hypertension: No Diabetes: No Asthma: No Past Surgical History: Procedure Laterality Date ??? EAR SURGERY Social History Socioeconomic History ??? Marital status: Single Spouse name: Not on file ??? Number of children: Not on file ??? Years of education: Not on file ??? Highest education level: Not on file Tobacco Use ??? Smoking status: Former Smoker Packs/day: 0.05 ??? Smokeless tobacco: Never Used ??? Tobacco comment: pt vapes Substance and Sexual Activity ??? Alcohol use: No ??? Drug use: Yes Types: Marijuana Comment: not used in a while per pt ??? Sexual activity: Yes Partners: Male Support System: Not addressed Safe at home: Yes family history includes Allergies in her maternal grandmother; Asthma in her mother; Other in her father. Family history of bleeding or clotting disorders: No Family history of defects, genetic disorders, or developmental delay: No No Known Allergies HOME MEDICATIONS : acetaminophen 500 mg capsule ibuprofen (ADVIL,MOTRIN) 600 mg tablet nicotine (NICODERM CQ) 7 mg oxyCODONE (ROXICODONE) 5 mg immediate release tablet PNV with [id number] 27 mg iron- 1 mg tablet polyethylene glycol (MIRALAX) 17 gram packet 28 mg iron- 800 mcg tablet sertraline (ZOLOFT) 50 mg tablet terconazole (TERAZOL 3) 80 mg vaginal suppository Review of Sys: Negative except per HPI Vitals: Temp: [97.1 ??F] 97.1 ??F Pulse: [45-116] 49 Resp: [15-26] 25 BP: (103-164)/(58-94) 144/72 Physical Exam: General: NAD, sleepy but responsive Cardiovascular: Bradycardic, HR 50s, no appreciable m/r/g Pulmonary: Clear to ausculation bilaterally Abdomen: Soft, NTND Extremities: Trace peripheral edema, extremities warm and well perfused Assessment and Plan Steve Shi is a 25 y.o. female at 40w1d who is being admitted for shortness of breath. Problem Vaginal Delivery # ID: Afebrile. No signs/symptoms of infection. #COVID-19: Negative 09/26. #VZV NI: Varivax refused by patient . # Heme: EBL 900 mL. No symptoms acute blood loss anemia and no additional bleeding since delivery. # CV/Pulm: PreEwSF vs PPCM vs pulm hypertension: Pt presented with SOB that woke her from sleep 10/03. Exam largely wnl, euvolemic. BNP elevated to 1586, trop elevated 86->125, EKG w/o ST/T changes, sinus kristie. CXR 10/03 at OSH w/o acute process and heart size probably wnl. BSUS per hand outside cutter c/f pulmonary hypertension. Continue tele with continuous pulse ox. MgSO4 2g given at OSH, additional 2g given here (Mg level 2.5 at OSH) and 2g/hr rate continued for possible preEwSF. UPC ordered. Cr elevated to 0.9 from BL 0.5-0.6, otherwise wnl. Plan for diuresis with lasix 20mg IV per Maternal cards. Appreciate recs. # GI/: Tolerating PO. Voiding spontaneously. # Pain: Controlled with above regimen. # Psych: Depression: On no meds. Previously took Zoloft, declines restarting inpatient or at discharge. # Post DVT prophylaxis: The patient has the following MAJOR risk factors none and the following MINOR risk factors BMI 30-39 and delivery. enoxaparin 40 mg daily ordered for VTE prophylaxis. # MOC: Declined # MOF: # COVID Vaccination Status: Declined # Disposition: Continue care, send f/u appt message prior to discharge Plan discussed with Dr. Tuttle. Mary Diego MD 10/04/20 Fellow Attestation I have seen and examined the patient and agree with the above documented assessment and plan. Briefly, the patient is a POD5 who presented as a transfer secondary to dyspnea and elevated BNP initially concerning for peripartum cardiomyopathy. Vitals significant for new onset mild range BP, intermittent bradycardia to the 40s. She had a work-up significant for a BNP of 1586, rising trop from 86->125 and creatinine bump from baseline 0.5-0.6 to 0.94. CXR negative, EKG sinus kristie both at OSH and here. UPC negative. Cardiology consult, bedside echo with normal RV and LV systolicfunction, estimated PASP 72 mmHg, dilated IVC. Echo concerning for pulmonary hypertension, less likely peripartum cardiomyopathy (LV function not depressed) or pre-eclampsia (UPC 278). Formal echo this am, possible right heart cath if formal echo findings are consistent with bedside findings. We will also send labs to assess potential autoimmune causes of PAH. Diuresing with lasix and will remainon tele. Trend electrolytes and trop. She remains on L&D for close observation. Sohan Tuttle MD Maternal- Medicine Fellow, PGY-5 Cosigned by Prince Cruz MD at 10/05/2020 12:40 PM CDT Associated attestation - Prince Cruz MD - 10/05/2020 12:40 PM CDT I have reviewed the above note for Steve Shi, and I agree with the documented plan by the resident/fellow/IRIS. Prince Cruz MD 10/05/2020 documented in this encounter Consult Notes * Solitario Elena MD - 10/04/2020 12:44 AM CDTAssociated Order(s): IP CONSULT TO CARDIOLOGY Cardiology Consult Note - Maternal Cardiology Patient Name: Steve Shi : 1995 Date of Service: 10/04/20 Requesting Attending: Sohan Tuttle MD Reason for Consult: No data found Chief Complaint: shortness of breath HPI Steve Shi is a 25 y.o. female who is 5 days post after a prolonged labor course complicated by decelerations. Her course was complicated by IUGR and marijuana use. Her only other significant symptom during was lower extremity edema. She denies resting shortness of breath and dyspnea on exertion. She had no history of pre-eclampsia or eclampsia. Her course was uncomplicated and she was discharged to home. She is now presenting with headacheover the last few days that has been aggravated by lights and associated with an elevated blood pressure as well as nausea and vomiting. In the last two days prior to presentation she noted increasing shortness of breath with exertion and worsening swelling of her legs. She denies orthopnea, PND, abdominal swelling, palpitations, chest pain and pressure, syncope and pre-syncope. No cough, fevers,chills or sweats. She presented to [facility] ED and was found to be bradycardic with rates in the low 50s with BP 144/72 mmHg. Oxygen saturation was 91% and she was placed on nasal cannula. Initial laboratory evaluation was notable for NT-pro BNP of 1586 and hs-trop of 125. Renal function and electrolytes were within normal limits. EKG was notable for sinus bradycardia with no acute ST segment or T wave changes. CXR notable for no pulmonary edema or consolidations but prominent meri. She was transferred here for further evaluation. Maternal Cardiology has been consulted for her symptoms of dyspnea and elevated NT-pro BNP. She confirms the above story and currently denies chest pain and pressure. She has no family history of early FL. Her sister was diagnosed with ToF at 2 months. She has no family history of autoimmune or rheumatic disease. She denies a personal history of these as well. No recent joint pain and swelling. No rashes or nail changes. Review of Systems: Review of systems as per HPI and, otherwise all other systems are negative. PMHX: has a past medical history of Depression and Urinary tract infection. PSHX: has a past surgical history that includes Ear Surgery. Family Hx: family history includes Allergies in her maternal grandmother; Asthma in her mother; Other in her father. Social Hx: reports that she has quit smoking. She smoked 0.05 packs per day. She has never used smokeless tobacco. She reports current drug use. Drug: Marijuana. She reports that she does not drink alcohol. Allergies: No Known Allergies Home Medications: HOME MEDICATIONS : acetaminophen 500 mg capsule ibuprofen (ADVIL,MOTRIN) 600 mg tablet nicotine (NICODERM CQ) 7 mg oxyCODONE (ROXICODONE) 5 mg immediate release tablet PNV with vrdcyka-bmuh-SH 27 mg iron- 1 mg tablet polyethylene glycol (MIRALAX) 17 gram packet 28 mg iron- 800 mcg tablet sertraline (ZOLOFT) 50 mg tablet terconazole (TERAZOL 3) 80 mg vaginal suppository Current Medications: enoxaparin, 40 mg, subcutaneous, Daily-2100 furosemide, 20 mg, intravenous, Once metoclopramide, 10 mg, oral, Once sodium chloride 0.9%, 0.5-20 mL, intra-catheter, Q8H KASIE dextrose 5% and Lactated Ringer's, 50 mL/hr, Last Rate: 50 mL/hr (10/04/20 0014) magnesium sulfate, 2 g/hr, Last Rate: 2 g/hr (10/04/20 0045) Objective Vital Signs: 24hr Min/Max: Temp Min: 36.2 ??C (97.1 ??F) Max: 36.2 ??C (97.1 ??F) Pulse Min: 45 Max: 116 BP Min: 103/72 Max: 164/82 Resp Min: 15 Max: 26 SpO2 Min: 90 % Max: 100 % Most Recent: There were no vitals filed for this visit. Intake/Output: No intake or output data in the 24 hours ending 10/04/20 0045 Physical Exam: General appearance: no acute distress, obese HEENT: NCAT, MMM, anicteric Lungs: CTAB, no w/r/r, non-labored on nasal cannula Heart: RRR, S1, S2 normal, no murmur, rub or gallop. JVP minimally elevated, + LE edema Abdomen: soft, NT/ND; bowel sounds normal Extremities: extremities warm and well-perfused, equal pulses Skin: warm and dry Neurologic: No abnormal movements, non-focal exam Psych: Normal mood and affect Lab/Radiology/Diagnostic Review: Labs: Recent Labs Lab Units 10/03/20 19109/29/20 0443 09/29/20 0443 09/27/20 0849 09/27/20 0849 HEMOGLOBIN g/dL 10.4* < > 10.4* < > 11.6* HEMATOCRIT % 33.1* < > 32.3* < > 36.2 WBC K/cumm 8.5 < > 10.7* < > 7.5 PLATELETS K/cumm 289 -- 189 -- 214 < > = values in this interval not displayed. Recent Labs Lab Units 10/03/20214110/03/201911 SODIUM mmol/L -- 139 POTASSIUM PLASMA mmol/L -- 4.2 CHLORIDE mmol/L -- 104 CO2 mmol/L -- 23 ANIONGAP mmol/L -- 13 BUN SERUM mg/dL -- 14 CREATININE mg/dL -- 0.94 CALCIUM mg/dL -- 9.2 MAGNESIUM mg/dL 2.5 -- Recent Labs Lab Units 10/03/201911 ALBUMIN g/dL 3.6 ALK PHOS Units/L 106 AST Units/L 35 ALT Units/L 34 BILIRUBIN TOTAL mg/dL 0.2 Recent Labs Lab Units 10/03/201911 LACTATE DEHYDROGENASE (LDH) Units/L 271* Cultures: Lab Results Component Value Date MICROBIOLOGY (.) 09/17/2020 Final Report: Streptococcus agalactiae (Group B Streptococci) * * * * * * * * * * * * * * * * * * * * Resistance to penicillin in Group B Streptococcus has not been reported. Group B Streptococci are universally susceptible to beta-lactam antibiotics and vancomycin. Routine susceptibility testing is not performed. In penicillin allergic patients, please contact the laboratory at [phone] to request susceptibility testing * * * * * * * * * * * * * * * * * * * * MICROBIOLOGY Final Report: No growth 04/04/2020 MICROBIOLOGY Final Report: No growth 08/05/2018 MICROBIOLOGY Final Report: No growth 08/05/2018 I personally reviewed the Telemetry images with the following findings: Sinus rhythm/ I personally reviewed the ECG images with the following findings: Sinus bradycardia, no acute ST segment or T wave changes. I personally reviewed the CXR and bedside TTE images with the following findings: CXR notable for no pulmonary edema or consolidations but prominent meri. Bedside echo with normal LV and RV systolic function. No wall motion abnormalities. RV mildly dilated. TR jet 4 m/s and IVC dilated with 50% collapse with inspiration. Estimated PASP 72 mmHg. Assessment/Plan Ms. Shi is a 25 y/o female who is 5 days post after a prolonged labor course complicated by decelerations. Her course was complicated by IUGR and marijuana use but nopreeclampsia or eclampsia. Her course was uncomplicated but she is now presenting with headaches and increasing shortness of breath with exertion as well as worsening swelling of her legs.Maternal Cardiology has been consulted for her symptoms of dyspnea and elevated NT-pro BNP. #. New onset shortness of breath with associated LE swelling #. Elevated NT-pro BNP #. Elevated hs-troponin, likely myocardial injury pattern #. Elevated PASP on bedside echo -presents 5 days post- from with worsening shortness of breath associated with LE swelling. Noted to have increased NT-pro BNP to 1500 with hs- trop of 150. EKG reassuring with no acute ST segment or T wave changes. CXR clear with likely hilar enlargement. She has no known cardiac history. Sister had ToF diagnosed in infancy. -bedside echo done with normal LV and RV systolic function by visualization. No wall motion abnormalities. RV mildly dilated. Doppler signal on tricuspid valve with TR jet of 4 m/s. IVC dilated with 50% collapse on inspiration. Estimated PASP 72 mmHg. -her presentation and symptoms post- along with her bedside echo evaluation are concerning for a picture of pulmonary HTN. Would suspect PAH, though other causes of pHTN cannot be ruled out at this time, including acute PE. Low likelihood of peripartum cardiomyopathy as LV systolic function appears normal. -she denies a history of autoimmune or rheumatologic disease and reports no family history. No current joint pains, swelling and skin and nail changes. -recommend formal echo in AM to further evaluate PA pressures -if elevated will likely need to send autoimmune serologic markers as well as RHC to evaluate hemodynamics and involvement of pulmonary HTN consult team -consider CT PE protocol to rule out pulmonary embolus given new oxygen requirement and elevated PApressures as well as elevated hs-troponin -recommend trial of IV lasix 20 mg and monitor urine output. Goal net negative 1-2 L -monitor electrolytes and renal function -trend troponin to peak with EKG. Once down trending no longer need to check unless she has worsening of symptoms or new chest pain/pressure. -telemetry We appreciate the opportunity to be involved in this patient's care. If after 5PM or on weekends, please page the hand outside cutter director of strategic communications with any questions or concerns. Solitario Elena MD Telemetry Tech, PGY-IV Maternal Cardiology 12:45 AM 10/04/20 Cosigned by Liliana Munson MD at 10/04/2020 5:01 PM CDT Associated attestation - Liliana Munson MD - 10/04/2020 5:01 PM CDT I have seen and examined the patient on 10/04/20. I agree with the findings and plan of care with the following modifications: .. 25 y/o presenting ~ 5 days with headache and dyspnea. Vitals on presentation notable for sinus bradycardia, BP. ProBNP 144/72, 91% on RA requiring 2L NC. Pro-BNP elevated at 1586 and hsTnT 86 -->125. Transferred to [facility]. HsTnI 637 -->711. CXR with pulmonary edema. She had a CTE PE negative for PE. Echocardiogram performed this morning with normal LV/RV function, diastolic dysfunction, est PASP ~ 40 mmHg and regional wall motion abnormalities. She received IV furosemide with improvement in her symptoms. Her BP has remained normotensive. Exam with RRR, no murmurs, no JVD, lung clear, no edema. ECG: sinus bradycardia, cannot r/o anteroseptal infarct (q wave in V2, may be due to placement) Echocardiogram: normal LV/RV function, diastolic dysfunction, est PASP ~ 40 mmHg and regional wall motion abnormalities A/P She has been ruled out for PE. Elevated PASP is due to diastolic dysfunction. The rising troponin and regional wall motion abnormalities raise concern for peripartum FL, most commonly due to SCAD. Elevated cardiac biomarker can be seen with preE, but wall motion abnormalities are concerning for ischemia. Please obtain another troponin. If trop continues to uptrend, recommend heparin gtt. No beta kanu given bradycardia. Pending troponin results, will discuss cardiac cath with patient. documented in this encounter Nursing Notes * Charly Millard RN - 10/05/2020 10:45 PM CDT Patient discharged home in the company of the father of the baby and her baby. Will pick her medication from her home [facility], discharge instructions given, IV access removed and a parking pass given. documented in this encounter Miscellaneous Notes * Plan of Care - Charly Mlilard RN - 10/05/2020 11:10 PM CDT Goals: Clinical Goals for the Shift: vss Summary: Problem: Fluid Volume: Goal: Ability to maintain a balanced intake and output will improve Outcome: Adequate for Discharge Problem: Physical Regulation: Goal: Complications related to the disease process, condition or treatment will be avoided or minimized Outcome: Adequate for Discharge Goal: Diagnostic test results will improve Outcome: Adequate for Discharge Problem: Health Behavior: Goal: Understanding of discharge needs will improve Outcome: Adequate for Discharge * Perioperative Nursing Note - Charlotte Marin, KAMERON - 10/05/2020 7:39 PM CDT Pt is returning to 5800, report called to KAMERON Vernon. Pt right radial site C/D/I- no bleeding, no hematoma, pulse palpable. Pt is leaving via bed w/transporter. * Pre-Sedation Documentation - Ml Herman NP - 10/05/2020 2:32 PM CDT Sedation Plan ASA 2 - Mild systemic disease Risks, benefits, and alternatives discussed with patient. History of sedation/Anesthesia complications:No History of transfusion reaction: No Current Facility-Administered Medications Medication Dose Route Frequency Provider Last Rate Last Admin ??? acetaminophen (TYLENOL) tablet 1,000 mg 1,000 mg oral Q6H PRN Mary Diego MD 1,000mg at 10/05/20 0838 ??? dextrose 5% and Lactated Ringer's infusion 50 mL/hr intravenous Continuous Virgilio Sorto MD 50 mL/hr at 10/04/20 0935 50 mL/hr at 10/04/20 0935 ??? heparin 1,000 unit/mL injection 3,700 Units 40 Units/kg intravenous Q6H PRN Farrah Aguirre MD Or ??? heparin 1,000 unit/mL injection 7,400 Units 80 Units/kg intravenous Q6H PRN Farrah gAuirre MD ??? heparin in 0.45% sodium chloride 25,000 units/250 mL (100 units/mL) infusion (premix) 0-33 Units/kg/hr intravenous Titrated Farrah Aguirre MD 20.1 mL/hr at 10/05/20 0914 21.68 Units/kg/hr at 10/05/20 0914 ??? metoprolol tartrate (LOPRESSOR) immediate release tablet 12.5 mg 12.5 mg oral BID Katy Sykes MD 12.5 mg at 10/04/20 2103 ??? ondansetron ODT (ZOFRAN-ODT) disintegrating tablet 4 mg 4 mg oral Q6H PRN Mary Diego MD Or ??? ondansetron (ZOFRAN) injection 4 mg 4 mg intravenous Q6H PRN Mary Diego MD ??? sodium chloride 0.9% flush 0.5-20 mL 0.5-20 mL intra-catheter Q8H [facility] Mary Diego MD 10 mL at 10/04/20 1638 ??? sodium chloride 0.9% flush 0.5-20 mL 0.5-20 mL intra-catheter PRN Mary Diego MD 10 mL at 10/05/20 1016 Laboratory review: Chemistry BMP Lab Results Component Value Date GLUCOSE 104 10/04/2020 CALCIUM 8.4 (L) 10/04/2020 SODIUM 138 10/04/2020 POTASSIUM See Comment 10/04/2020 CO2 24 10/04/2020 BUNSER 13 10/04/2020 CREATININE 1.04 10/04/2020 and CBC: Lab Results Component Value Date WBC 8.1 10/04/2020 RBC 3.89 (L) 10/04/2020 HGB 10.6 (L) 10/04/2020 HCT 32.5 (L) 10/04/2020 MCV 83.5 10/04/2020 MCH 27.2 10/04/2020 MCHC 32.6 10/04/2020 RDWCV 14.2 10/04/2020 RDWSD 41.3 10/04/2020 MPV 12.3 10/04/2020 NRBCABS 0.00 10/04/2020 Current meds/Labs/Test Results that may affect sedation reviewed: Yes Last PO Intake: NPO since 10/05/20 @0001 , , HEENT Exam: negative Sedation Plan: Moderate Cosigned by Kendell Ingram MD at 10/05/2020 2:59 PM CDT * Plan of Care - Natacha Gomes RN - 10/05/2020 10:40 AM CDT Goals: Clinical Goals for the Shift: VSS, cardiac cath procedure, D/C home Problem: Fluid Volume: Goal: Ability to maintain a balanced intake and output will improve 10/05/2020 1040 by Natacha Gomes RN Outcome: Progressing 10/05/2020 1039 by Natacha Gomes RN Outcome: Progressing Problem: Physical Regulation: Goal: Complications related to the disease process, condition or treatment will be avoided or minimized 10/05/2020 1040 by Natacha Gomes RN Outcome: Progressing 10/05/2020 1039 by Natacha Gomes RN Outcome: Progressing Goal: Diagnostic test results will improve Outcome: Progressing Problem: Health Behavior: Goal: Understanding of discharge needs will improve Outcome: Progressing * Plan of Care - Zainab Lopez RN - 10/04/2020 8:15 PM CDT Problem: Lack of Knowledge: Goal: Verbalization of understanding the information provided will improve Outcome: Progressing Problem: Life Cycle: Goal: Ability to maintain clinical measurements within normal limits will improve Outcome: Progressing Problem: Lack of Knowledge: Goal: Understanding of the effects of medication on fluid volume will improve Outcome: Progressing Goal: Ability to verbalize an understanding of the causes of excess fluid volume will improve Outcome: Progressing Problem: Fluid Volume: Goal: Ability to maintain a balanced intake and output will improve Outcome: Progressing Problem: Physical Regulation: Goal: Complications related to the disease process, condition or treatment will be avoided or minimized Outcome: Progressing Goal: Diagnostic test results will improve Outcome: Progressing Goals: heparin drip, tele, NPO at 0000 for cardiac cath placement Summary: * Plan of Care - Tracy Mai RN - 10/04/2020 7:56 AM CDT Goals: Adequate pain control. Stable vital signs. Progress towards discharge. Problem: Lack of Knowledge: Goal: Verbalization of understanding the information provided will improve Outcome: Progressing Problem: Life Cycle: Goal: Ability to maintain clinical measurements within normal limits will improve Outcome: Progressing Problem: Lack of Knowledge: Goal: Understanding of the effects of medication on fluid volume will improve Outcome: Progressing Goal: Ability to verbalize an understanding of the causes of excess fluid volume will improve Outcome: Progressing Problem: Fluid Volume: Goal: Ability to maintain a balanced intake and output will improve Outcome: Progressing Problem: Physical Regulation: Goal: Complications related to the disease process, condition or treatment will be avoided or minimized Outcome: Progressing Goal: Diagnostic test results will improve Outcome: Progressing * Plan of Timmy - Lilian Johnson - 10/04/2020 5:15 AM CDT Problem: Lack of Knowledge: Goal: Verbalization of understanding the information provided will improve Outcome: Progressing Problem: Life Cycle: Goal: Ability to maintain clinical measurements within normal limits will improve Outcome: Progressing Problem: Lack of Knowledge: Goal: Understanding of the effects of medication on fluid volume will improve Outcome: Progressing Goal: Ability to verbalize an understanding of the causes of excess fluid volume will improve Outcome: Progressing Problem: Fluid Volume: Goal: Ability to maintain a balanced intake and output will improve Outcome: Progressing Problem: Physical Regulation: Goal: Complications related to the disease process, condition or treatment will be avoided or minimized Outcome: Progressing Goal: Diagnostic test results will improve Outcome: Progressing Cosigned by Kell William RN at 10/04/2020 7:00 AM CDT documented in this encounter Plan of Treatment Not on file documented as of this encounter Procedures Procedure Name Priority Date/Time Associated Diagnosis Comments LEFT HEART CATHETERIZATION WITH CORONARY ANGIOGRAPHY AND WITH AND WITHOUT LEFT VENTRICULOGRAM Routine 10/05/2020 5:21 PM CDT Elevated troponin APTT STAT 10/05/2020 8:04 AM CDT APTT STAT 10/05/2020 1:59 AM CDT APTT STAT 10/04/2020 5:59 PM CDT TROPONIN I HIGH-SENSITIVITY Timed 10/04/2020 4:29 PM CDT CBC WITHOUT DIFFERENTIAL Timed 10/04/2020 4:29 PM CDT COMPREHENSIVE METABOLIC PANEL Timed 10/04/2020 4:29 PM CDT TROPONIN I HIGH-SENSITIVITY Timed 10/04/2020 12:32 PM CDT MAGNESIUM Timed 10/04/2020 12:32 PM CDT TRANSTHORACIC ECHO (TTE) COMPLETE W DOPPLER/CF W CONTRAST Routine 10/04/2020 11:29 AM CDT TROPONIN I HIGH-SENSITIVITY Timed 10/04/2020 9:[address] CHEST PE W CONTRAST ED Urgent/IP Urgent 10/04/2020 9:25 AM CDT TROPONIN I HIGH-SENSITIVITY Timed 10/04/2020 7:04 AM CDT DIFFERENTIAL AUTO Timed 10/04/2020 7:0 4 AM CDT CBC WITH AUTO DIFFERENTIAL Timed 10/04/2020 7:04 AM CDT COMPREHENSIVE METABOLIC PANEL Timed 10/04/2020 7:04 AM CDT ECG 12-LEAD Routine 10/04/2020 6:00 AM CDT ECG 12-LEAD Routine 10/04/2020 3:16 AM CDT TROPONIN I HIGH-SENSITIVITY Timed 10/04/2020 1:42 AM CDT CRITICAL RESULT CALLBACK CARDIO CHEM Timed 10/04/2020 1:42 AM CDT DRUG SCREEN, URINE Routine 10/04/2020 12 :41 AM CDT PROTEIN / CREATININE RATIO, URINE, RANDOM Routine 10/04/2020 12:41 AM CDT ECG 12-LEAD Routine 10/03/2020 11:56 PM CDT documented in this encounter Results * LEFT HEART CATHETERIZATION WITH CORONARY ANGIOGRAPHY AND WITH AND WITHOUT LEFT VENTRICULOGRAM (10/05/2020 5:21 PM CDT) Anatomical Region Laterality Modality X-Ray Angiograph y Narrative 10/05/2020 5:32 PM CDT Cardiac Catheterization Operative Report Radial Steve Shi [id number] 10/05/2020 No, Physician Patient Clinical Profile: Mrs Shi is a 25 y/o woman with a history of increased dyspnea in the period. Her troponin was elevated. Her TTE demonstrated diastolic dysfunction. She is being referred for coronary angiography to rule out SCAD Procedure Details The risks, benefits, complications, treatment options, and expected outcomes were discussed with the patient. The patient and/or family concurred with the proposed plan, giving informed consent. The patient was brought to the labor supervisor after IV hydration was continued and oral premedication was given. I provided direct face to face monitoring of intravenous conscious sedation which was administered using Fentanyl and Versed by an independently certified nurse ??for a total of 25 minutes. 2% Lidocaine was used for local anesthesia A angiocatheter was used to access was obtained ??the right radial artery, A ??4/5 italian slender sheath was inserted into the right radial artery.. Intraradial nicardipine and nitroglycerin was administered. Once access was obtained in the ascending aorta heparin was administered. A tiger wire was advanced into the ascedning aorta. The patient had a 5 italian Rita catheter was advanced from the radial artery to the central aorta over the wire. The pigtail catheter was then advanced through the aortic valve into the left ventricle and left ventricular hemodymnamics were obtained. . All catheters were exchanged over a wire. The left coronary catheter was cannulated and angiography was performed. The right coronary catheter was cannulated and angiography was performed. Intracoronary nitroglycerin and nicardipine were adminsitered to obtain maximal vasodilation. The catheter was removed over a guide wire. At the conclusion of the case intraradial nicardipine was administered and hemostasis achieved with a Trans Radial Band There were no apparent complications. Results: Hemodynamics: : 98/25 mhg LV, Ao: 38/55 Coronary arteries: Right coronary artery:dominant. Angiographically normal Left coronary artery: Left main: normal LCx: non dominant without luminal irregularities LAD: angiographically normal Ramus: angiographically normal ? Diagnostic impression: Elevated filling pressures No evidence of coronary artery disease or scad Therapeutic recommendations: TR band care Kendell Ingram MD credit portfolio advisor Co-Hand Inserter Operator of Valvular Heart Disease 10/05/2020 5:31 PM Liliana Anna MD CV CARDIAC CATH PROCEDURES Final Result * (ABNORMAL) aPTT (10/05/2020 8:04 AM CDT) aPTT 103(H) 27 - 37 sec [facility] Comment: Interpretive Data Therapeutic heparin range: 60.0 - 94.0 seconds. Based on correlation with therapeutic heparin activity range of 0.3-0.7 Units/mL. Current interpretive data was last revised on 2020. Blood specimen (specimen) 10/05/2020 8:04 AM CDT 10/05/2020 8:31 AM CDT Narrative [facility] - 10/05/2020 9:05 AM CDT Draw STAT PTT 6 hrs after initial heparin bolus, after each rate change, and every 6 hours until 2 consecutive PTTs are within therapeutic range. Once two consecutive PTT's are therapeutic (60-94.9 seconds), then draw PTT every AM until heparin is discontinued. Theodore Mohr MD LAB BLOOD ORDERABLES nal Result Performing Organization Address [facility] de Phone Number [facility] [place] [address] * (ABNORMAL) aPTT (10/05/2020 1:59 AM CDT) aPTT 75(H) 27 - 37 sec [facility] Comment: Interpretive Data Therapeutic heparin range: 60.0 - 94.0 seconds. Based on correlation with therapeutic heparin activity range of 0.3-0.7 Units/mL. Current interpretive data was last revised on 2020. Blood specimen (specimen) 10/05/2020 1:59 AM CDT 10/05/2020 2:27 AM CDT Narrative [facility] - 10/05/2020 2:50 AM CDT Draw STAT PTT 6 hrs after initial heparin bolus, after each rate change, and every 6 hours until 2 consecutive PTTs are within therapeutic range. Once two consecutive PTT's are therapeutic (60-94.9 seconds), then draw PTT every AM until heparin is discontinued. Theodore Mohr MD LAB BLOOD ORDERABLES nal Result Performing Organization Address [facility] Co de Phone Number [facility] [place] [address] * (ABNORMAL) aPTT (10/04/2020 5:59 PM CDT) aPTT 25(L) 27 - 37 sec [facility] Comment: Interpretive Data Therapeutic heparin range: 60.0 - 94.0 seconds. Based on correlation with therapeutic heparin activity range of 0.3-0.7 Units/mL. Current interpretive data was last revised on 2020. Blood specimen (specimen) 10/04/2020 5:59 PM CDT 10/04/2020 6:07 PM CDT Narrative [facility] - 10/04/2020 6:36 PM CDT Unless preformed in the last 48 hours. Draw prior to heparin administration. us Theodore Mohr MD LAB BLOOD ORDERABLES Fi nal Result [facility] Department [place] [address] * (ABNORMAL) Comprehensive metabolic panel (10/04/2020 4:29 PM CDT) Sodium 138 135 - 145 mmol/L [facility] Potassium, pl See Comment 3.3 - 4.9 mmol/L [facility] Comment:Credited; Hemolyzed Specimen Chloride 102 97 - 110 mmol/L [facility] CO2 24 22 - 32 mmol/L [facility] Anion gap 12 2 - 15 mmol/L [facility] BUN 13 8 - 25 mg/dL [facility] Creatinine 1.04 0.60 - 1.10 mg/dL [facility] Glucose 104 70 - 199 mg/dL [facility] Comment: Interpretive Data Fasting glucose >/= 126 [...] classification and Diagnosis of Diabetes Diabetes Care 2017;40 (Suppl. 1):S11. Current interpretive data was last revised 2017. Calcium 8.4(L) 8.5 - 10.3 mg/dL [facility] Bilirubin, total <0.2 0.1 - 1.2 mg/dL [facility] Comment:Reviewed Protein, pl 6.1(L) 6.5 - 8.5 g/dL [facility] Albumin 3.1(L) 3.5 - 5.0 g/dL [facility] Alk phos 85 40 - 130 Units/L [facility] Comment:Hemolyzed; result ma y be falsely decreased ALT See Comment 7 - 45 Units/L [facility] Comment:Credited; Hemolyzed Specimen AST See Comment 10 - 45 Units/L [facility] Comment:Credited; Hemolyzed Specimen Blood specimen (specimen) 10/04/2020 4:29 PM CDT 10/04/2020 5:11 PM CDT us Prince Cruz MD LAB BLOOD ORDERAB LES Final Result [facility] Department [place] [address] * (ABNORMAL) CBC without differential (10/04/2020 4:29 PM CDT) Pathologist [facility] WBC 8.1 3.8 - 9.9 K/cumm [facility] Hgb 10.6(L) 11.9 - 15.5 g/dL [facility] Hct 32.5(L) 35.6 - 45.5 % [facility] Plt 263 150 - 400 K/cumm [facility] MPV 12.3 9.1 - 12.3 fL [facility] RBC 3.89(L) 3.90 - 5.20 M/cumm [facility] MCV 83.5 81.3 - 96.4 fL [facility] MCH 27.2 27.1 - 33.3 pg [facility] MCHC 32.6 32.3 - 35.7 g/dL [facility] RDW CV 14.2 11.1 - 14.9 % [facility] RDW SD 41.3 35.7 - 48.1 fL [facility] NRBC abs 0.00 0.00 - 0.01 K/cumm [facility] Blood specimen (specimen) 10/04/2020 4:29 PM CDT 10/04/2020 5:11 PM CDT Prince Cruz MD LAB BLOOD ORDERAB LES Final Result Performing Organization Address [facility] Co de Phone Number [facility] [place] [address] * (ABNORMAL) Troponin I high-sensitivity (10/04/2020 4:29 PM CDT) Trop I hs 450(C) <=17 ng/L [facility] Comment: Previous critical value noted 3 hours ago. Interpretive Data For further hscTnI resources including the diagnostic algorithm and an aid in interpretation, copy and paste this link: [email or web address]/[email or web address] Current Interpretive Data last revised 2019. Blood specimen (specimen) 10/04/2020 4:29 PM CDT 10/04/2020 5:11 PM CDT us Sohan Tuttle MD LAB BLOOD ORDERABLES Final Result Performing Organization Address [facility] [place] [address] * (ABNORMAL) Magnesium (10/04/2020 12:32 PM CDT) [facility] Magnesium 4.5(H) 1.4 - 2.5 mg/dL [facility] Blood specimen (specimen) 10/04/2020 12:32 PM CDT 10/04/2020 12:48 PM CDT Prince Cruz MD LAB BLOOD ORDERAB LES Final Result Performing Organization Address City/[facility] [place] [address] * (ABNORMAL) Troponin I high-sensitivity (10/04/2020 12:32 PM CDT) Trop I hs 762(C) <=17 ng/L [facility] Comment: Previous critical value noted 5 hours ago. Interpretive Data For further hscTnI resources including the diagnostic algorithm and an aid in interpretation, copy and paste this link: [email or web address]/[email or web address] Current Interpretive Data last revised 2019. Blood specimen (specimen) 10/04/2020 12:32 PM CDT 10/04/2020 12:48 PM CDT us Sohan Tuttle MD LAB BLOOD ORDERABLES Final Result [facility] Department [place] [address] * TRANSTHORACIC ECHO (TTE) COMPLETE W DOPPLER/CF W CONTRAST (10/04/2020 11:29 AM CDT) Anatomical Region Laterality Modality Ultrasound 10/04/2020 10:0 5 AM CDT Narrative 10/04/2020 12:09 PM CDT Patient name: Steve Shi Date of test: 10/04/2020 Type of test: TTE w/Doppler [facility] #: [id number] Date of : 1995 (F) Nursing Education Consultant: Mechelle Ko RDCS Referring Physician: SOHAN TUTTLE MD Contrast Agent: 2.6 ml Optison Administered, (0.4 ml wasted). Contrast Administered by: Kell Hernández RN Supervised/Interpreted by: Prince Ovalle MD Diagnosis: Location: [facility] Reason for test: SOB, Eval PHT #[id number] MV Structure: Normal, ?MV Motion: Normal, ?? [...] Variable ?2D Linear Normal ? Aotic Root: 2.7 cm ?<3.6 ? Ao Indexed: 1.4 cm/M2 <2.0 ? LA: ? <3.8 ? RV: ? 3.9 cm ?<4.2 ? LV(ED): ? 5.0 cm ?<5.3 ? LV(ES): ? 3.7 cm ?<3.5 ?2D Vol. ?? Normal ?Indexed ?? Indexed Normal RA: ? 58.0 ml ? 29.1 ml/M2 ?9-33 ? LA: ? 62.0 ml ? 31.1 ml/M2 ?16-34 ? RV: ? <11.6 ? LV(ED): ? 180.0 ml ??46-106 ?90.2 ml/M2 ?<62 ? LV(ES): ? 14-42 ? <25 ?3D Vol. ? Indexed Normal LV(ED): ?<62 ? LV(ES): ?<24 ? LV EF: 55-60 % ?? (Normal: >=54%) ?? LV Septum: 1.0 cm ?(Normal: <0.9 cm) Wall Motion Scoring (1=Normal 2=Hypo 3=Akinetic 4=Dyskin./Aneurysm 0=Not visualized) Parasternal Long Norris:MAS=1 BAS=2 MIL=1 DAMIAN=1 Parasternal Short Norris:MAS=1 MIS=1 FL=1 MIL=1 MAL=1 MA=1 Apical 4 Chambers:=1 MIS=1 BIS=2 BAL=1 MAL=1 AL=1 AC=1 Apical 2 Chambers:AI=1 FL=1 BI=1 BA=1 MA=1 AA=1 AC=1 LV Global Longitudinal Strain: -20.3% ??(Normal <-17%) RV Global Longitudinal Strain: -21.1% ??(Normal <-17%) LV Function: Normal LV Ejection Fraction, ??(EF=54-74%) RV Function: Normal Septal Motion: Pericardial Effusion: none seen Atrial Septum: Normal DOPPLER/COLOR FLOW DOPPLER RESULTS: Diastolic Function: indeterminate Tricuspid Valve: mild TV regurgitation Pulmonic Valve: normal PV AV Regurgitation: Trace AR AV Stenosis: no AV Area: ??cm2 AV Pressure Gradient (mmHg): Mean: 3, Peak:6 MV Regurgitation: trace MR MV Stenosis: no MS MV Area: ??cm2 MV Pressure Gradient (mmHg): Mean: 0 MV ERO: ??cm Regurg. Vol.: ??ml/beat Regurg. Frac.: ??% PA Pressure: 35-40 mmHg DOPPLER/COLOR FOLOW DOPPLER COMMENTS: Trace AR, trace MR, no , no MS, mild TV regurgitation, normal PV. Diastolic function: indeterminate CONTRAST: 2.6 ml Optison Administered, (0.4 ml wasted). SUMMARY: No prior study for comparison. ??Moderate LVE with normal wall thickness, septal flattening with basal inferior hypokinesis, overall normal LV systolic function, LVEF 55-60%, and normal LV strain. ??Indeterminate diastolic function. ??Normal RV size and systolic function with normal RV strain and no Carreon's sign or 60/60 sign to suggest hemodynamically significant PE. ??Upper normal LA volume. Normal aorta, RA and IVC. ??Trace AR and MR. ??Mild TR. ??Est. PASP 35-40 mm Hg, assuming an RA pressure of 3 mm Hg. ??No pericardial effusion. ?? Confirmed on ??10/04/2020 - 12:09:47 by Prince Ovalle MD By signing this report, the attending mobility architect certifies that he or she has personally supervised and interpreted the echocardiogram and has reviewed and or edited and agrees with the written comments contained within the report. Procedure Note Prince Ovalle MD - 10/04/2020 Patient name: Steve Shi Date of test: 10/04/2020 Type of test: TTE w/Doppler [facility] #: [id number] Date of : 1995 (F) Nursing Education Consultant: Mechelle Ko RDCS Referring Physician: SOHAN TUTTLE MD Contrast Agent: 2.6 ml Optison Administered, (0.4 ml wasted). Contrast Administered by: Kell Hernández RN Supervised/Interpreted by: Prince Ovalle MD Diagnosis: Location: [facility] Reason for test: SOB, Eval PHT #[id number] MV Structure: Normal, MV Motion: Normal, Mitral Annulus: Normal AV Structure: tricuspid and is Normal, AV Motion: Normal Aotic root: Normal, TM: Normal, PV: Normal Valvular Vegetations: none seen, Mass/Thrombi: none seen RA: Normal Measurements: M-Mode Normal Aotic Root: <3.8 LA: <3.8 RV: <2.8 LV(ED): <5.7 LV(ES): Variable 2D Linear Normal Aotic Root: 2.7 cm <3.6 Ao Indexed: 1.4 cm/M2 <2.0 LA: <3.8 RV: 3.9 cm <4.2 LV(ED): 5.0 cm <5.3 LV(ES): 3.7 cm <3.5 2D Vol. Normal Indexed Indexed Normal RA: 58.0 ml 29.1 ml/M2 9-33 LA: 62.0 ml 31.1 ml/M2 16-34 RV: <11.6 LV(ED): 180.0 ml 46-106 90.2 ml/M2 <62 LV(ES): 14-42 <25 3D Vol. Indexed Normal LV(ED): <62 LV(ES): <24 LV EF: 55-60 % (Normal: >=54%) LV Septum: 1.0 cm (Normal: <0.9 cm) Wall Motion Scoring (1=Normal 2=Hypo 3=Akinetic 4=Dyskin./Aneurysm 0=Not visualized) Parasternal Long Norris:MAS=1 BAS=2 MIL=1 DAMIAN=1 Parasternal Short Norris:MAS=1 MIS=1 FL=1 MIL=1 MAL=1 MA=1 Apical 4 Chambers:=1 MIS=1 BIS=2 BAL=1 MAL=1 AL=1 AC=1 Apical 2 Chambers:AI=1 FL=1 BI=1 BA=1 MA=1 AA=1 AC=1 LV Global Longitudinal Strain: -20.3% (Normal <-17%) RV Global Longitudinal Strain: -21.1% (Normal <-17%) LV Function: Normal LV Ejection Fraction, (EF=54-74%) RV Function: Normal Septal Motion: Pericardial Effusion: none seen Atrial Septum: Normal DOPPLER/COLOR FLOW DOPPLER RESULTS: Diastolic Function: indeterminate Tricuspid Valve: mild TV regurgitation Pulmonic Valve: normal PV AV Regurgitation: Trace AR AV Stenosis: no AV Area: cm2 AV Pressure Gradient (mmHg): Mean: 3, Peak:6 MV Regurgitation: trace MR MV Stenosis: no MS MV Area: cm2 MV Pressure Gradient (mmHg): Mean: 0 MV ERO: cm Regurg. Vol.: ml/beat Regurg. Frac.: % PA Pressure: 35-40 mmHg DOPPLER/COLOR FOLOW DOPPLER COMMENTS: Trace AR, trace MR, no , no MS, mild TV regurgitation, normal PV. Diastolic function: indeterminate CONTRAST: 2.6 ml Optison Administered, (0.4 ml wasted). SUMMARY: No prior study for comparison. Moderate LVE [...] of 3 mm Hg. No pericardial effusion. Confirmed on 10/04/2020 - 12:09:47 by Prince Ovalle MD By signing this report, the attending mobility architect certifies that he or she has personally supervised and interpreted the echocardiogram and has reviewed and or edited and agrees with the written comments contained within the report. us Sohan Tuttle MD CV ECHO PROCEDURES Final R esult * (ABNORMAL) Troponin I high-sensitivity (10/04/2020 9:40 AM CDT) Trop I hs 479(C) <=17 ng/L [facility] Comment: Previous critical value noted 2 hours ago. Interpretive Data For further hscTnI resources including the diagnostic algorithm and an aid in interpretation, copy and paste this link: [email or web address]/show/[email or web address] Current Interpretive Data last revised 2019. Blood specimen (specimen) 10/04/2020 9:40 AM CDT 10/04/2020 6:09 PM CDT us Sohan Tuttle MD LAB BLOOD ORDERABLES Final Result [facility] Department [place] [address] * CT Chest PE (CTA) W Contrast (10/04/2020 9:25 AM CDT) Anatomical Region Laterality Modality Body N/A Computed Tomogra phy 10/04/2020 9:47 AM CDT Impressions 10/04/2020 10:34 AM CDT 1. ??No acute pulmonary embolus. 2. ??Mild pulmonary edema and small bilateral pleural effusions, and mild body wall edema. Dictated by: Tera Davalos M.D. The radiology attending physician has personally reviewed this study, and had reviewed and/or edited this written report and agrees with it. Electronically signed by: Abhishek Guerra M.D. Narrative 10/04/2020 10:34 AM CDT EXAMINATION: CT CHEST PE (CTA) W CONTRAST TECHNIQUE: Computed Tomographic images were acquired using a Chest Angiographic protocol optimized for pulmonary embolism. ??Contrast enhanced transaxial images were obtained following the intravenous administration of 100 ml of nonionic contrast. ??Multiplanar reformatted images and three-dimensional images were obtained on the 3-D workstation and sent to the PACS archival system. ?? HISTORY: day 5 presenting with concern for preeclampsia and pulmonary embolus. COMPARISON: Chest radiograph 10/03/2020 FINDINGS: Thyroid is normal. ??No supraclavicular, axillary, mediastinal, or hilar lymphadenopathy. ??Heart size is normal without pericardial effusion. ??Small amount of fluid within the pericardial recesses. ??No pulmonary embolus. No obstructing lesion within the tracheobronchial tree. There is smooth septal line thickening and peribronchial thickening within both lower lobes. ??There are multiple small patchy groundglass opacities throughout the lungs. ??Some of these opacities within the superior segment of the right lower lobe appears slightly nodular, which could represent a component of aspiration. Findings are favored to represent mild pulmonary edema. ??While less likely, an atypical infection or pulmonary hemorrhage could be considered in the appropriate clinical setting. ??Small bilateral pleural effusions. ??No pneumothorax. Limited evaluation of the upper abdomen shows mild body wall edema and heterogeneous mildly hyperattenuating gallbladder contents which may represent sludge or stones. ??No suspicious osseous lytic or blastic lesion. There is CT imaging evidence of right heart strain: No Procedure Note Abhishek Guerra MD - 10/04/2020 EXAMINATION: CT CHEST PE (CTA) W CONTRAST TECHNIQUE: Computed Tomographic images were acquired using a Chest Angiographic protocol optimized for pulmonary embolism. Contrast enhanced transaxial images were obtained following the intravenous administration of 100 ml of nonionic contrast. Multiplanar reformatted images and three-dimensional images were obtained on the 3-D workstation and sent to the PACS archival system. HISTORY: day 5 presenting with concern for preeclampsia and pulmonary embolus. COMPARISON: Chest radiograph 10/03/2020 FINDINGS: Thyroid is normal. No supraclavicular, axillary, mediastinal, or hilar lymphadenopathy. Heart size is normal without pericardial effusion. Small amount of fluid within the pericardial recesses. No pulmonary embolus. No obstructing lesion within the tracheobronchial tree. There is smooth septal line thickening and peribronchial thickening within both lower lobes. There are multiple small patchy groundglass opacities throughout the lungs. Some of these opacities within the superior segment of the right lower lobe appears slightly nodular, which could represent a component of aspiration. Findings are favored to represent mild pulmonary edema. While less likely, an atypical infection or pulmonary hemorrhage could be considered in the appropriate clinical setting. Small bilateral pleural effusions. No pneumothorax. Limited evaluation of the upper abdomen shows mild body wall edema and heterogeneous mildly hyperattenuating gallbladder contents which may represent sludge or stones. No suspicious osseous lytic or blastic lesion. There is CT imaging evidence of right heart strain: No IMPRESSION: 1. No acute pulmonary embolus. 2. Mild pulmonary edema and small bilateral pleural effusions, and mild body wall edema. Dictated by: Tera Davalos M.D. The radiology attending physician has personally reviewed this study, and had reviewed and/or edited this written report and agrees with it. Electronically signed by: Abhishek Guerra M.D. us Sohan Tuttle MD IMG CT PROCEDURES Final Re sult * (ABNORMAL) Differential, auto (10/04/2020 7:04 AM CDT) Neutrophil abs 7.5(H) 1.7 - 6.5 K/cumm [facility] Imm gran abs 0.1 0.0 - 0.1 K/cumm [facility] Lymphocyte abs 1.5 0.8 - 3.3 K/cumm [facility] Monocyte abs 0.6 0.2 - 0.8 K/cumm [facility] Eosinophil abs 0.0 0.0 - 0.5 K/cumm [facility] Basophil abs 0.0 0.0 - 0.1 K/cumm [facility] Neutrophil pct 77.4 % [facility] Comment: Interpretive Data Percent cell count reference ranges are not reported, since discordance with absolute values may lead to misinterpretation of CBC data. Current Interpretive Data was last revised on 2017. Imm gran pct 0.8 % [facility] Comment: Interpretive Data Percent cell count reference ranges are not reported, since discordance with absolute values may lead to misinterpretation of CBC data. Current Interpretive Data was last revised on 2017. Lymphocyte pct 14.9 % [facility] Comment: Interpretive Data Percent cell count reference ranges are not reported, since discordance with absolute values may lead to misinterpretation of CBC data. Current Interpretive Data was last revised on 2017. Monocyte pct 6.6 % [facility] Comment: Interpretive Data Percent cell count reference ranges are not reported, since discordance with absolute values may lead to misinterpretation of CBC data. Current Interpretive Data was last revised on 2017. Eosinophil pct 0.1 % [facility] Comment: Interpretive Data Percent cell count reference ranges are not reported, since discordance with absolute values may lead to misinterpretation of CBC data. Current Interpretive Data was last revised on 2017. Basophil pct 0.2 % [facility] Comment: Interpretive Data Percent cell count reference ranges are not reported, since discordance with absolute values may lead to misinterpretation of CBC data. Current Interpretive Data was last revised on 2017. Blood specimen (specimen) 10/04/2020 7:04 AM CDT 10/04/2020 7:36 AM CDT us Sohan Tuttle MD LAB BLOOD ORDERABLES Final Result [facility] Department [place] [address] * Comprehensive metabolic panel (10/04/2020 7:04 AM CDT) Sodium 142 135 - 145 mmol/L [facility] Potassium, pl 3.8 3.3 - 4.9 mmol/L [facility] Chloride 106 97 - 110 mmol/L [facility] CO2 24 22 - 32 mmol/L [facility] Anion gap 12 2 - 15 mmol/L [facility] BUN 13 8 - 25 mg/dL [facility] Creatinine 1.03 0.60 - 1.10 mg/dL [facility] Glucose 87 70 - 199 mg/dL [facility] Comment: Interpretive Data Fasting glucose >/= 126 [...] classification and Diagnosis of Diabetes Diabetes Care 2017;40 (Suppl. 1):S11. Current interpretive data was last revised 2017. Calcium 9.0 8.5 - 10.3 mg/dL [facility] Bilirubin, total 0.2 0.1 - 1.2 mg/dL [facility] Protein, pl 6.6 6.5 - 8.5 g/dL [facility] Albumin 3.5 3.5 - 5.0 g/dL [facility] Alk phos 104 40 - 130 Units/L [facility] ALT 40 7 - 45 Units/L [facility] AST 45 10 - 45 Units/L [facility] Blood specimen (specimen) 10/04/2020 7:04 AM CDT 10/04/2020 8:14 AM CDT us Sohan Tuttle MD LAB BLOOD ORDERABLES Final Result [facility] Department [place] [address] * (ABNORMAL) CBC with auto differential (10/04/2020 7:04 AM CDT) Pathologist [facility] WBC 9.7 3.8 - 9.9 K/cumm [facility] Hgb 10.8(L) 11.9 - 15.5 g/dL [facility] Hct 33.4(L) 35.6 - 45.5 % [facility] Plt 307 150 - 400 K/cumm [facility] MPV 11.1 9.1 - 12.3 fL [facility] RBC 4.01 3.90 - 5.20 M/cumm [facility] MCV 83.3 81.3 - 96.4 fL [facility] MCH 26.9(L) 27.1 - 33.3 pg [facility] MCHC 32.3 32.3 - 35.7 g/dL [facility] RDW CV 13.7 11.1 - 14.9 % [facility] RDW SD 41.8 35.7 - 48.1 fL [facility] NRBC abs 0.00 0.00 - 0.01 K/cumm [facility] Blood specimen (specimen) 10/04/2020 7:04 AM CDT 10/04/2020 7:36 AM CDT Sohan Tuttle MD LAB BLOOD ORDERABLES Final Result Performing Organization Address City/[facility] Co de Phone Number [facility] [place] [address] * (ABNORMAL) Troponin I high-sensitivity (10/04/2020 7:04 AM CDT) Trop I hs 711(C) <=17 ng/L [facility] Comment: Previous critical value noted 5 hours ago. Interpretive Data For further [facility] resources including the diagnostic algorithm and an aid in interpretation, copy and paste this link: [email or web address]/[email or web address] Current Interpretive Data last revised 2019. Blood specimen (specimen) 10/04/2020 7:04 AM CDT 10/04/2020 8:00 AM CDT Sohan Tuttle MD LAB BLOOD ORDERABLES Final Result Performing Organization Address City/[facility]/ZIP Co de Phone Number [facility] [place] [address] * ECG 12 lead (10/04/2020 6:00 AM CDT) Ventricular Rate EKG/Min 74 BPM [facility] Atrial Rate 74 BPM [facility] TN-Interval (MSEC) 190 ms [facility] QRS-Interval (MSEC) 66 ms [facility] QT-Interval (MSEC) 390 ms [facility] QTc 432 ms [facility] P [place] 66 degrees [facility] R [place] 86 degrees [facility] T Norris 76 degrees [facility] Diagnosis Normal sinus rhythm with sinus arrhythmia Anteroseptal infarct , age undetermined Abnormal ECG No previous ECGs available Confirmed by CALE COLLAZO M.D ([id number]) on 10/04/2020 4:11:39 PM [facility] 10/04/2020 6:00 AM CDT 10/04/2020 4:11 PM CDT Sohan Tuttle MD ECG ORDERABLES Final Resu lt [facility] * ECG 12 lead (10/04/2020 3:16 AM CDT) Ventricular Rate EKG/Min 58 BPM [facility] Atrial Rate 58 BPM [facility] TN-Interval (MSEC) 176 ms [facility] QRS-Interval (MSEC) 76 ms [facility] QT-Interval (MSEC) 420 ms [facility] QTc 412 ms [facility] P Norris 60 degrees [facility] R [place] 81 degrees [facility] T [place] 67 degrees [facility] Diagnosis Sinus bradycardia with sinus arrhythmia Septal infarct (cited on or before 03-OCT-2020) Abnormal ECG When compared with ECG of 03-OCT-2020 23:56, (unconfirmed) No significant change was found Confirmed by CALE COLLAZO M.D ([id number]) on 10/04/2020 4:11:35 PM [facility] 10/04/2020 3:16 AM CDT 10/04/2020 4:11 PM CDT Sohan Tuttle MD ECG ORDERABLES Final Resu lt [facility] * Critical result callback Cardio chemistry (10/04/2020 1:42 AM CDT) Date Notified [id number] [facility] Time Notified 239 [facility] Test name Troponin I hs [facility] Called/Read Back Audrey Medina [facility] Credentials RN [facility] Called By JEAN CARLOS [facility] Blood specimen (specimen) 10/04/2020 1:42 AM CDT 10/04/2020 2:03 AM CDT Sohan Tuttle MD LAB BLOOD ORDERABLES Final Result Performing Organization Address [facility] Co de Phone Number [facility] Department [place] [address] * (ABNORMAL) Troponin I high-sensitivity (10/04/2020 1:42 AM CDT) Trop I hs 637(C) <=17 ng/L [facility] Comment: Critical result called to and read back by Audrey Medina (RN) on 10/04/2020 02:40:33 CDT to JEAN CARLOS. Interpretive Data For further [facility] resources including the diagnostic algorithm and an aid in interpretation, copy and paste this link: [email or web address] Current Interpretive Data last revised 2019. Blood specimen (specimen) 10/04/2020 1:42 AM CDT 10/04/2020 2:03 AM CDT Sohan Tuttle MD LAB BLOOD ORDERABLES Final Result Performing Organization Address [facility] Co de Phone Number [facility] [place] [address] * (ABNORMAL) Protein / creatinine ratio, urine, random (10/04/2020 12:41 AM CDT) Protein, ur, quant 14.2 mg/dL [facility] Comment: Interpretive Data No reference range established. Current interpretive data was last revised 2018. Creatinine Ur 51.1 mg/dL [facility] Comment: Interpretive Data No reference range established. Current interpretive data was last revised 2018. Protein/creatinin e ratio 277.9(H) 0.0 - 180.0 mg/g CR [facility] Urine 10/04/2020 12:4 1 AM CDT 10/04/2020 1:09 AM CDT Narrative [facility] - 10/04/2020 1:40 AM CDT Straight cath or harris Sohan Tuttle MD LAB URINE ORDERABLES Final Result [facility] Department [place] [address] * (ABNORMAL) Drug screen, urine (10/04/2020 12:41 AM CDT) Drug screen, ur Positive( A) [facility] Comment: Report corrected on 10/04/2020 08:32:35 CDT by LB: Previously reported as Negative. Telephone report made to: Tracy Mai ([id number]) on 10/04/2020 08:32:35 CDT by LB. Interpretive Data This test detects the presence of approximately 50 substances using LC-tandem mass spectrometry. For a list of specific compounds and detection limits refer to the Lab Test Guide Book. While this technique is highly specific, false-positive and false-negative findings may occur in very rare circumstances. Contact the Prosthetic Lab Technician director of strategic communications ([phone] #[phone]) for consultation if needed. This test was developed and its performance characteristics determined by [facility]. It has not been cleared or approved by the U.S. Food and Drug Administration. Current interpretive data was last revised 2020. Testing performed by: [facility], [place]., [address] Director Review Amended(A ) [facility] Comment: Upon Prosthetic Lab Technician Review, the following additional compounds were detected: - Oxycodone Repeated and verified. Report corrected on 10/04/2020 08:32:35 CDT by LB: Previously reported as Negative. Telephone report made to: Tracy Mai ([id number]) on 10/04/2020 08:32:35 CDT by LB. Testing performed by: [facility], [place]., [address] Urine 10/04/2020 12:4 1 AM CDT 10/04/2020 1:19 AM CDT Sohan Tuttle MD LAB URINE ORDERABLES Edite d Result - Final Performing Organization Address [facility] Co de Phone Number [facility] Department [place] [address] * ECG 12 lead (10/03/2020 11:56 PM CDT) Ventricular Rate EKG/Min 58 BPM [facility] Atrial Rate 58 BPM [facility] TN-Interval (MSEC) 168 ms [facility] QRS-Interval (MSEC) 70 ms [facility] QT-Interval (MSEC) 444 ms [facility] QTc 435 ms [facility] P Norris 66 degrees [facility] R Norris 84 degrees [facility] T Norris 70 degrees [facility] Diagnosis Sinus bradycardia with sinus arrhythmia Septal infarct , age undetermined Abnormal ECG No previous ECGs available Confirmed by CALE COLLAZO M.D ([id number]) on 10/04/2020 4:11:32 PM [facility] 10/03/2020 11:5 6 PM CDT 10/04/2020 4:11 PM CDT Sohan Tuttle MD ECG ORDERABLES Final Resu lt Performing Organization Address City/[facility]/ZIP Co de Phone Number [facility] documented in this encounter Visit Diagnoses Diagnosis Elevated troponin- Primary Other abnormal blood chemistry Elevated troponin Other abnormal blood chemistry Peripartum cardiomyopathy Peripartum cardiomyopathy, 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 Elevated troponin Other abnormal blood chemistry documented in this encounter Admitting Diagnoses Diagnosis Elevated troponin Other abnormal blood chemistry documented in this encounter Administered Medications Inactive Administered Medications - up to 3 most recent administrations Medication Order MAR Action Action Date Dose Rate Site acetaminophen (TYLENOL) tablet 1,000 mg 1,000 mg, oral, Every 6 hours PRN, 1st line for pain, Starting on Mare 10/04/20 at 0200 Given 10/05/2020 8:38 AM CDT 1,000 mg Given 10/05/2020 12:18 AM CDT 1,000 mg Given 10/04/2020 5:27 PM CDT 1,000 mg dextrose 5% and Lactated Ringer's infusion 50 mL/hr, intravenous, Continuous, Starting on Mare 10/04/20 at 0030 Restarted 10/04/2020 9:35 AM CDT 50 mL/hr 50 mL/hr New Bag 10/04/2020 12:14 AM CDT 50 mL/hr 50 mL/hr enalapril (VASOTEC) tablet 5 mg 5 mg, oral, 2 times daily, First dose on Thu10/05/20 at 2245 Given 10/05/2020 10:47 PM CDT 5 mg furosemide (LASIX) 10 mg/mL injection 20 mg 20 mg, intravenous, Once, On Mare 10/04/20 at 0100, For 1 dose, For IV push: administer doses < 160 mg at a rate of 20 -40 mg/min. Doses >/= 160 mg should be administered no faster than 4 mg/min. Room temperature only Given 10/04/2020 1:09 AM CDT 20 mg heparin 1,000 unit/mL injection 3,700 Units 3,700 Units (rounded from 3,704 Units = 40 Units/kg ? 92.6 kg), intravenous, Every 6 hours PRN, PTT 40-50.9 seconds, Starting on Mare 10/04/20 at 1718, Subsequent bolus during heparin infusion., Indications: Venous ThrombosisIndications:Ve nous Thrombosis heparin 1,000 unit/mL injection 7,400 Units 7,400 Units (rounded from 7,408 Units = 80 Units/kg ? 92.6 kg), intravenous, Once, On Mare 10/04/20 at 1800, For 1 dose, Initial bolus prior to starting heparin infusion. Do not adjust initial bolus based on patient PTT., Indications: Venous ThrombosisIndications:Ve nous Thrombosis Given 10/04/2020 7:15 PM CDT 7,400 Units heparin 1,000 unit/mL injection 7,400 Units 7,400 Units (rounded from 7,408 Units = 80 Units/kg ? 92.6 kg), intravenous, Every 6 hours PRN, PTT less than 40 seconds, Starting on Mare 10/04/20 at 1718, Subsequent bolus during heparin infusion., Indications: Venous ThrombosisIndications:Ve nous Thrombosis heparin in 0.45% sodium chloride 25,000 units/250 mL (100 units/mL) infusion (premix) 0-33 Units/kg/hr ? 92.6 kg (0-30.558 mL/hr, rounded to 0-30.56 mL/hr), intravenous, Titrated, Starting on Mare 10/04/20 at 1800, WEIGHT-BASED HEPARIN INFUSION Initial rate 18 Units/kg/hr. Adjust infusion based upon nomogram: PTT less than 40 seconds: Bolus if ordered (see PRN bolus order) , then increase infusion rate 3 units/kg/hour PTT 40 - 50.9 seconds: Bolus if ordered (see PRN bolus order), then increase infusion rate 2 units/kg/hour PTT 51 - 59.9 seconds: No bolus, increase infusion rate 1 unit/kg/hour PTT 60 - 94.9 seconds: No change PTT 95 - 104.9 seconds: No bolus, decrease infusion rate 1 unit/kg/hour PTT 105 - 114.9 seconds: Hold infusion for 30 minutes, then decrease infusion rate 2 units/kg/hour PTT 115 or greater seconds: Hold infusion for 1 hour, then decrease infusion rate 3 units/kg/hour Draw STAT PTT 6 hrs after initial heparin bolus, after each rate change, and every 6 hours until 2 consecutive PTTs are within therapeutic range. Once two consecutive PTT's are therapeutic (60-94.9 seconds), then draw PTT every AM until heparin is discontinued., Indications: Venous ThrombosisIndications:Ve nous Thrombosis Rate/Dose Change 10/05/2020 9:14 AM CDT 21.68 Units/kg/hr 20.1 mL/hr New Bag 10/05/2020 7:55 AM CDT 22.678 Units/kg/hr 21 mL /hr Rate/Dose Verify 10/05/2020 2:55 AM CDT 22.678 Units/kg/hr 21 mL/hr ioversoL (OPTIRAY 350) syringe syringe 100 mL 100 mL, intravenous, Once in imaging, contrast, Starting on Thu10/04/20 at 0903, For 1 dose Contrast Given 10/04/2020 9:21 AM CDT 100 mL magnesium sulfate 20 g/500 mL in water infusion (premix) 2 g/hr (50 mL/hr), intravenous, Continuous, Starting on Thu10/04/20 at 0030, L&D Pre-Delivery, Suspected magnesium toxicity - Stop if maternal respiratory rate less than 12 breaths/minute, apply oximeter and administer O2 at 8-12 LPM per tight face mask to maintain SaO2 95% or more and notify MD., Indications: Pre-EclampsiaIndications:Pre-E clampsia New Bag 10/04/2020 1:55 PM CDT 2 g/hr 50 mL/hr Restarted 10/04/2020 9:35 AM CDT 2 g/hr 50 mL/hr New Bag 10/04/2020 12:45 AM CDT 2 g/hr 50 mL/hr magnesium sulfate bolus from bag 2 g 2 g, intravenous, Administer over 30 Minutes, Once, On Thu10/04/20 at 0030, For 1 dose, L&D Pre-Delivery, Indications: Pre-EclampsiaIndications:Pre-Ec lampsia Bolus from Bag 10/04/2020 12:13 AM CDT 2 g metoclopramide (REGLAN) tablet 10 mg 10 mg, oral, Once, On Thu10/04/20 at 0015, For 1 dose Given 10/04/2020 1:08 AM CDT 10 mg metoprolol tartrate (LOPRESSOR) immediate release tablet 12.5 mg 12.5 mg, oral, 2 times daily, First dose on Thu10/04/20 at 2100, Hold if HR<60 and notify MD Given 10/04/2020 9:03 PM CDT 12.5 mg ondansetron (ZOFRAN) injection 4 mg 4 mg, intravenous, Administer over 2 Minutes, Every 6 hours PRN, nausea, vomiting, if not tolerating PO, Starting on Thu10/03/20 at 2336, L&D Pre-Delivery, Indications: Nausea and VomitingIndications:Nausea and Vomiting ondansetron ODT (ZOFRAN-ODT) disintegrating tablet 4 mg 4 mg, oral, Every 6 hours PRN, nausea, vomiting, Starting on Thu10/03/20 at 2336, L&D Pre-Delivery, Indications: Nausea and VomitingIndications:Nausea and Vomiting perflutren protein-a (OPTISON) 3 mL in sodium chloride 0.9% 8 mL syringe 1-8 mL, intravenous, Once in imaging, contrast, Starting on Mare 10/04/20 at 1004, For 1 dose, Intra-Procedure (CV) Contrast Given 10/04/2020 11:30 AM CDT 7 mL sodium chloride 0.9% flush 0.5-20 mL 0.5-20 mL, intra-catheter, Every 8 hours scheduled, First dose on Thu10/04/20 at 0015, L&D Pre-Delivery, Flush volume based on line type and size. , Indications: FlushingIndications:Flushing Given 10/04/2020 4:38 PM CDT 10 mL sodium chloride 0.9% flush 0.5-20 mL 0.5-20 mL, intra-catheter, As needed, line care, Starting on Thu10/03/20 at 2335, L&D Pre-Delivery, Flush volume based on line type and size. Flush before and after each use. , Indications: FlushingIndications:Flushing Given 10/05/2020 10:16 AM CDT 10 mL sodium chloride 0.9% infusion 30 mL/hr, intravenous, Continuous, Starting on Thu10/05/20 at 1600, Pre-Procedure (CV) New Bag 10/05/2020 3:37 PM CDT 30 mL/hr 30 mL/hr documented in this encounter Historical Medications * This list may reflect changes made after this encounter. azelaic acid 15 % gel APPLY TO FACE TWICE A DAY 08/01/2020 05/25/2023 added in this encounter Active and Recently Administered Medications Times are shown in CDT. Scheduled Medication Order 10/03/2020 10/04/2020 10/05/2020 aspirin chewable tablet 162 mg 162 mg, oral, Once, On Thu10/05/20 at 1515, For 1 dose 1515 (Due)1641 (JUN Hold - Provider: Automatic Transfer Provider - Reason: Patient not available)2147 (JUN Unhold - Provider: Automatic Transfer Provider) enalapril (VASOTEC) tablet 5 mg 5 mg, oral, 2 times daily, First dose on Thu10/05/20 at 2245 2247 (Given - Provid er: Charly Millard RN) furosemide (LASIX) 10 mg/mL injection 20 mg (COMPLETED) 20 mg, intravenous, Once, On Mare 10/04/20 at 0100, For 1 dose, For IV push: administer doses < 160 mg at a rate of 20 -40 mg/min. Doses >/= 160 mg should be administered no faster than 4 mg/min. Room temperature only 0109 (Given - Provider: Lilian Johnson) heparin 1,000 unit/mL injection 7,400 Units (COMPLETED) 7,400 Units (rounded from 7,408 Units = 80 Units/kg ? 92.6 kg), intravenous, Once, On Mare 10/04/20 at 1800, For 1 dose, Initial bolus prior to starting heparin infusion. Do not adjust initial bolus based on patient PTT., Indications: Venous Thrombosis 1914 (Given - Provider: Tracy Mai RN - Comment: verified by Jessica MELO) magnesium sulfate bolus from bag 2 g (COMPLETED) 2 g, intravenous, Administer over 30 Minutes, Once, On Mare 10/04/20 at 0030, For 1 dose, L&D Pre-Delivery, Indications: Pre-Eclampsia 001 (Bolus from Bag - Provider: Kell William RN - Comment: martín Guillermo RN) metoclopramide (REGLAN) tablet 10 mg (COMPLETED) 10 mg, oral, Once, On Mare 10/04/20 at 0015, For 1 dose 0108 (Given - Provider: Lilian Johnson) metoprolol tartrate (LOPRESSOR) immediate release tablet 12.5 mg 12.5 mg, oral, 2 times daily, First dose on Mare 10/04/20 at 2100, Hold if HR<60 and notify 2107 (Given - Provider: Zainab Lopez RN) 0911 (Hold - Provider: Natacha Ashley Borton, RN - Reason: Order parameters not met)1641 ([facility] Hold - Provider: Automatic Transfer Provider - Reason: Patient not available)2100 (Dose Auto Held - Provider: Automatic Transfer Provider)2147 ([facility] Unhold - Provider: Automatic Transfer Provider) sodium chloride 0.9% flush 0.5-20 mL 0.5-20 mL, intra-catheter, Every 8 hours scheduled, First dose on Mare 10/04/20 at 0015, L&D Pre-Delivery, Flush volume based on line type and size. , Indications: Flushing 0113 (Not Given - Provider: Lilian Johnson - Reason: IV Infusing)0655 (Not Given - Provider: Kell William RN - Reason: IV Infusing)1406 (Not Given - Provider: Tracy Mai RN - Reason: IV Infusing)1638 (Given - Provider: Tracy Mai, KAMERON) 0205 (Not Given - Provider: Zainab Lopez RN - Reason: IV Infusing)0646 (Not Given - Provider: Zainab Lopez RN - Reason: IV Infusing)1400 (Not Given - Provider: Emely Serrano RN - Reason: IV Infusing)1641 ([facility] Hold - Provider: Automatic Transfer Provider - Reason: Patient not available)2147 ([facility] Unhold - Provider: Automatic Transfer Provider)2200 (Due - Provider: Automatic Transfer Provider) Continuous Medication Order 10/03/2020 10/04/2020 10/05/2020 dextrose 5% and Lactated Ringer's infusion 50 mL/hr, intravenous, Continuous, Starting on Mare 10/04/20 at 0030 0014 (New Bag - Provider: Kell William, KAMERON)0854 (Stopped - Provider: Tracy Mai, KAMERON - Comment: patient off floor for test)0935 (Restarted - Provider: Tracy Mai, KAMERON) 1537 (Hold - Provider: Leyda Bravo RN - Reason: IV Infusing) heparin in 0.45% sodium chloride 25,000 units/250 mL (100 units/mL) infusion (premix) 0-33 Units/kg/hr ? 92.6 kg (0-30.558 mL/hr, rounded to 0-30.56 mL/hr), intravenous, Titrated, Starting on Mare 10/04/20 at 1800, WEIGHT-BASED HEPARIN INFUSION Initial rate 18 Units/kg/hr. Adjust infusion based upon nomogram: PTT less than 40 seconds: Bolus if ordered (see PRN bolus order) , then increase infusion rate 3 units/kg/hour PTT 40 - 50.9 seconds: Bolus if ordered (see PRN bolus order), then increase infusion rate 2 units/kg/hour PTT 51 - 59.9 seconds: No bolus, increase infusion rate 1 unit/kg/hour PTT 60 - 94.9 seconds: No change PTT 95 - 104.9 seconds: No bolus, decrease infusion rate 1 unit/kg/hour PTT 105 - 114.9 seconds: Hold infusion for 30 minutes, then decrease infusion rate 2 units/kg/hour PTT 115 or greater seconds: Hold infusion for 1 hour, then decrease infusion rate 3 units/kg/hour Draw STAT PTT 6 hrs after initial heparin bolus, after each rate change, and every 6 hours until 2 consecutive PTTs are within therapeutic range. Once two consecutive PTT's are therapeutic (60-94.9 seconds), then draw PTT every AM until heparin is discontinued., Indications: Venous Thrombosis 191 (New Bag - Provider: Tracy Mai RN - Comment: PTT 25; verified by Jessica MELO) 0255 (Rate/Dose Verify - Provider: Zainab Lopez RN - Comment: PTT 75; no change required)0755 (New Bag - Provider: Natacha Gomes RN)0914 (Rate/Dose Change - Provider: Natacha Gomes RN)1520 (Stopped - Provider: Rosana Cuba RN - Comment: stopped for procedure.) magnesium sulfate 20 g/500 mL in water infusion (premix) (CANCELED) 2 g/hr (50 mL/hr), intravenous, Continuous, Starting on Mare 10/04/20 at 0030, L&D Pre-Delivery, Suspected magnesium toxicity - Stop if maternal respiratory rate less than 12 breaths/minute, apply oximeter and administer O2 at 8-12 LPM per tight face mask to maintain SaO2 95% or more and notify MD., Indications: Pre-Eclampsia 0045 (New Bag - Provider: Kell William RN)0854 (Stopped - Provider: Tracy Mai RN - Comment: patient off the floor for test)0935 (Restarted - Provider: Tracy Mai RN)1355 (New Bag - Provider: Tracy Mai RN)1909 (Stopped - Provider: Tracy Mai RN) sodium chloride 0.9% infusion 30 mL/hr, intravenous, Continuous, Starting on Thu10/05/20 at 1600, Pre-Procedure (CV) 1537 (New Bag - Provider: Leyda Bravo RN) PRN Medication Order 10/03/2020 10/04/2020 10/05/2020 acetaminophen (TYLENOL) tablet 1,000 mg 1,000 mg, oral, Every 6 hours PRN, 1st line for pain, Starting on Mare 10/04/20 at 0200 0938 (Given - Provider: Tracy Mai RN)1727 (Given - Provider: Tracy Mai RN) 0018 (Given - Provider: Zainab Lopez RN)0838 (Given - Provider: Natacha Gomes RN)1641 ([facility] Hold - Provider: Automatic Transfer Provider - Reason: Patient not available)214 ([facility] Unhold - Provider: Automatic Transfer Provider) fentaNYL (SUBLIMAZE) preservative free injection (CANCELED) As needed, Starting on Thu10/05/20 at 1651, Intra-Procedure (CV) 1651 (Given - Provid er: Sheri Acuna RN)1702 (Given - Provider: Sheri Acuna RN)1712 (Given - Provider: Sheri Acuna RN) heparin 1,000 unit/mL injection 3,700 Units(Linked Group 1) 3,700 Units (rounded from 3,704 Units = 40 Units/kg ? 92.6 kg), intravenous, Every 6 hours PRN, PTT 40-50.9 seconds, Starting on Mare 10/04/20 at 1718, Subsequent bolus during heparin infusion., Indications: Venous Thrombosis 1641 ([facility] Hold - Provider: Automatic Transfer Provider - Reason: Patient not available)214 ([facility] Unhold - Provider: Automatic Transfer Provider) heparin 1,000 unit/mL injection 7,400 Units(Linked Group 1) 7,400 Units (rounded from 7,408 Units = 80 Units/kg ? 92.6 kg), intravenous, Every 6 hours PRN, PTT less than 40 seconds, Starting on Mare 10/04/20 at 1718, Subsequent bolus during heparin infusion., Indications: Venous Thrombosis 164 (JUN Hold - Provider: Automatic Transfer Provider - Reason: Patient not available)214 (JUN Unhold - Provider: Automatic Transfer Provider) heparin 1,000 unit/mL injection (CANCELED) As needed, Starting on Thu10/05/20 at 1713, Intra-Procedure (CV) 1713 (Given - Provid er: Kendell Ingram MD) ioversoL (OPTIRAY 350) injection (CANCELED) As needed, Starting on Thu10/05/20 at 1722, Intra-Procedure (CV) 172 (Given - Provid er: Kendell Ingram MD) ioversoL (OPTIRAY 350) syringe syringe 100 mL (COMPLETED) 100 mL, intravenous, Once in imaging, contrast, Starting on Mare 10/04/20 at 0903, For 1 dose 0921 (Contrast Given - Provider: Beronica John, RT) lidocaine (XYLOCAINE) 10 mg/mL (1 %) injection (CANCELED) As needed, Starting on Thu10/05/20 at 1701, Intra-Procedure (CV), Indications: Administration of Local Anesthesia 170 (Given - Provid er: Margaret Osorio MD PhD) midazolam (VERSED) 1 mg/mL preservative free injection (CANCELED) Administer over 2 Minutes, As needed, Starting on Thu10/05/20 at 1651, Intra-Procedure (CV) 165 (Given - Provid er: Sheri Acuna RN)170 (Given - Provider: Sheri Acuna, KAMERON)171 (Given - Provider: Sheri Acuna, KAMERON) ondansetron (ZOFRAN) injection 4 mg(Linked Group 2) 4 mg, intravenous, Administer over 2 Minutes, Every 6 hours PRN, nausea, vomiting, if not tolerating PO, Starting on Thu10/03/20 at 2336, L&D Pre-Delivery, Indications: Nausea and Vomiting 1641 ([facility] Hold - Provider: Automatic Transfer Provider - Reason: Patient not available)2146 ([facility] Unhold - Provider: Automatic Transfer Provider) ondansetron ODT (ZOFRAN-ODT) disintegrating tablet 4 mg(Linked Group 2) 4 mg, oral, Every 6 hours PRN, nausea, vomiting, Starting on Thu10/03/20 at 2336, L&D Pre-Delivery, Indications: Nausea and Vomiting 164 ([facility] Hold - Provider: Automatic Transfer Provider - Reason: Patient not available)2146 ([facility] Unhold - Provider: Automatic Transfer Provider) perflutren protein-a (OPTISON) 3 mL in sodium chloride 0.9% 8 mL syringe (COMPLETED) 1-8 mL, intravenous, Once in imaging, contrast, Starting on Mare 10/04/20 at 1004, For 1 dose, Intra-Procedure (CV) 1130 (Contrast Given - Provider: Kell Hernández RN) sodium chloride 0.9% flush 0.5-20 mL 0.5-20 mL, intra-catheter, As needed, line care, Starting on Thu10/03/20 at 2335, L&D Pre-Delivery, Flush volume based on line type and size. Flush before and after each use. , Indications: Flushing 1016 (Given - Provid er: Emely Serrano RN)1640 ([facility] Hold - Provider: Automatic Transfer Provider - Reason: Patient not available)2146 ([facility] Unhold - Provider: Automatic Transfer Provider) Linked Groups Order Group 1: heparin 1,000 unit/mL injection 3,700 UnitsJump to med 3,700 Units (rounded from 3,704 Units = 40 Units/kg ? 92.6 kg), intravenous, Every 6 hours PRN, PTT 40-50.9 seconds, Starting on Mare 10/04/20 at 1718, Subsequent bolus during heparin infusion., Indications: Venous Thrombosis Or heparin 1,000 unit/mL injection 7,400 UnitsJump to med 7,400 Units (rounded from 7,408 Units = 80 Units/kg ? 92.6 kg), intravenous, Every 6 hours PRN, PTT less than 40 seconds, Starting on Mare 10/04/20 at 1718, Subsequent bolus during heparin infusion., Indications: Venous Thrombosis Group 2: ondansetron ODT (ZOFRAN-ODT) disintegrating tablet 4 mgJump to med 4 mg, oral, Every 6 hours PRN, nausea, vomiting, Starting on Thu10/03/20 at 2336, L&D Pre-Delivery, Indications: Nausea and Vomiting Or ondansetron (ZOFRAN) injection 4 mgJump to med 4 mg, intravenous, Administer over 2 Minutes, Every 6 hours PRN, nausea, vomiting, if not tolerating PO, Starting on Thu10/03/20 at 2336, L&D Pre-Delivery, Indications: Nausea and Vomiting documented in this encounter Orders Medications Ordered That Alex ht Not Have Been Administered Count Last Ordered Date First Ordered Date aspirin chewable tablet 162 mg 1 10/05/2020 fentaNYL (SUBLIMAZE) preserv ative free injection 1 10/05/2020 heparin 1,000 unit/mL injection 1 ioversoL (OPTIRAY 350) injection 1 10/06/19 lidocaine (XYLOCAINE) 10 mg/ mL (1 %) injection 1 10/05/2020 midazolam (VERSED) 1 mg/mL p reservative free injection 1 10/05/2020 heparin 1,000 unit/mL inject ion 3,700 Units 1 10/04/2020 heparin 1,000 unit/mL inject ion 7,400 Units 1 10/04/2020 calcium gluconate 100 mg/mL (10%) injection 1 g 1 10/03/2020 enoxaparin (LOVENOX) syringe 40 mg 1 2020 Lactated Ringer's (LR) bolus 500 mL 1 10/03 ondansetron (ZOFRAN) injection 4 mg 1 10/03 ondansetron ODT (ZOFRAN-ODT) disintegrating tablet 4 mg 1 10/03/2020 Nursing Count Last Ordered Date First Orde red Date INSERT HARRIS CATHETER 1 10/03/2020 Consult Count Last Ordered Date First Orde red Date IP CONSULT TO CARDIOLOGY 1 10/04/2020 CORE MEASURES Count Last Ordered Date First Ord ered Date REASON FOR NO VTE PROPHYLAXI S - HOSPITAL ADMISSION - MEDICATIONS 1 10/03/2020 Case Request Count Last Ordered Date First Orde red Date CASE REQUEST WHARF ATTENDANT 1 10/04/2020 documented in this encounter Care Teams Meter Maker Relationship Specialty Start Date End Date No, Physician PCP - General 11/01/16 documented as of this encounter
--- OUTSIDE RECORDS SUMMARY | 2024-04-02 11:54 | XMS_ITS | Encounter Summary ---
Author Organization [facility] Healthcare Address [address] [place] [address] Care Team Providers Care Asthma Educator Name Role Phone No, Physician Primary Care Provider [phone] Encounter Details Date Type Department Care Team (Late st Contact Info) Description 10/05/2020 5:10 PM CDT - 10/05/2020 6:40 PM CDT Surgery [facility] [address] [place] [address] Kendell Ingram MD [address] [address] LEFT HEART CATHETERIZATION WITH CORONARY ANGIOGRAPHY AND WITH OR WITHOUT LEFT VENTRICULOGRAM 14438 Surgery Details Date/Time Status Location OR Service Patient Class Case Class Case Type Trauma Case? 10/05/2020 5:10 PM Posted [facility] CARDIAC CONDUCTOR SLEEPING CAR CCL 03 Cardiovascular Inpatient Urgent - 24 hours Panel 1 Procedure LRB Anes Op Region Wound Class Comments LEFT HEART CATHETERIZATION WITH CORONARY ANGIOGRAPHY AND WITH OR WITHOUT LEFT VENTRICULOGRAM 93718 N/A Choice , elevated trop, wall motion abnormalities on echo, concern for SCAD Surgeon Surgeon Role Service Panel Kendell Ingram MD Primary Cardiovascular 1 Joshua Mccall MD Fellow Cardiovascula r 1 Margaret Osorio MD PhD Fellow Cardiovascula r 1 documented in this encounter Social History Tobacco [...] of Binge Drinking Not on file 08/11 [place] Depression Scale Answer Date Recorded [place] Depression Scale Total 0 07/05/2020 The thought of harming myself has occurred to me . 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 Gender Identity Female 12/02/2022 6:55 PM CDT Sexual Orientation Straight 12/02/2022 6: 55 PM CDT documented as of this encounter Last Filed Vital Signs Vital Sign Reading Time Taken Comments Blood Pressure 127/82 10/05/2020 6:35 PM CDT Pulse 51 10/05/2020 6:35 PM CDT Temperature 36.9 ??C (98.4 ??F) 10/05/2020 3:15 PM CD T Respiratory Rate 18 10/05/2020 6:35 PM CDT Oxygen Saturation 99% 10/05/2020 6:35 PM CDT Inhaled Oxygen Concentration - - Weight 92.6 kg (204 lb 3.2 oz) 10/04/2020 12:00 AM CDT Height 165.1 cm (5' 5 ) 10/04/2020 12:00 AM CDT Body Mass Index 33.98 10/04/2020 12:00 AM CDT documented in this encounter Discharge Summaries * Katharine Srinivasan MD - 10/05/2020 10:01 PM CDT Inpatient Discharge Summary BRIEF OVERVIEW Admitting Provider: Sohan Tuttle MD Discharge Provider: Prince Cruz MD Admission Date: 10/03/2020 Discharge Date: 10/05/2020 Admission Location: [facility] Problems/Diagnoses: Principal Problem: Elevated troponin Resolved Problems: [...] cough, fevers,chills or sweats. She presented to [facility] ED and was found to be bradycardic [...] She has no family history of early IN. Her sister was diagnosed with ToF at [...] without ST elevations or other signs of IN, but was notable for sinus bradycardia. Cardiology [...] ANGIOGRAPHY AND WITH OR WITHOUT LEFT VENTRICULOGRAM 88773 Pertinent Test Results: Recent Labs Lab Units [...] pain Commonly known as: ROXICODONE PNV with hatjnco-inwm-WB 27 mg iron- 1 mg tablet Take [...] hours). Do NOT supplement unless instructed by Organizational Research Consultant. * Call your Organizational Research Consultant if your baby has poor eating habits [...] pain 20 tablet 09/30/2020 1 PNV with sgezpbl-wxxn-RS 27 mg iron- 1 mg tabletIndications :Vitamin [...] Fellow Department of Obstetrics and Gynecology Pager: [phone] * Liliana Munson MD - 10/05/2020 3:50 PM CDT Cardiology [...] 12.5 mg, oral, BID, 12.5 mg at 10/04/202102 ??? ondansetron ODT (ZOFRAN-ODT) disintegrating tablet 4 [...] Units 10/04/20 1629 10/04/20 0704 10/04/20 0704 10/03/20 1912 10/03/20 1912 09/29/20 0443 09/29/20 0443 HEMOGLOBIN g/dL 10.6* < [...] sec 103* Recent Labs Lab Units 10/03/20 1912 LACTATE DEHYDROGENASE (LDH) Units/L 271* Cultures: Lab [...] allergic patients, please contact the laboratory at [phone] to request susceptibility testing * * * [...] in the setting of preeclampsia. Plan for [facility] today. Discussed with patient, treatment for [...] % Max: 99 % FHR: not applicable [place]: not applicable Physical Exam General: No acute [...] in the resident's/fellow's note. Improving symptomatically Plan [facility] today * Mary Diego MD - [...] labs notable for uptrending Trop. Called maternal bed placement coordinator material control supervisor. Trop T hs: 86 (1911) > 125 [...] ANGIOGRAPHY AND WITH OR WITHOUT LEFT VENTRICULOGRAM 92249 Source Note - Solitario Elena MD - [...] cough, fevers,chills or sweats. She presented to [facility] ED and was found to be bradycardic [...] She has no family history of early IN. Her sister was diagnosed with ToF at [...] 5 mg immediate release tablet PNV with hrgeksi-zvxm-RH 27 mg iron- 1 mg tablet polyethylene [...] Ringer's, 50 mL/hr, Last Rate: 50 mL/hr (10/04/2013) magnesium sulfate, 2 g/hr, Last Rate: 2 [...] allergic patients, please contact the laboratory at [phone] to request susceptibility testing * * * [...] 5PM or on weekends, please page the bed placement coordinator material control supervisor with any questions or concerns. Solitario Elena MD College Administrator, PGY-IV Maternal Cardiology 12:45 AM 10/04/20 Cosigned [...] ANGIOGRAPHY AND WITH OR WITHOUT LEFT VENTRICULOGRAM 67318 Cosigned by Kendell Ingram MD at 10/05/2020 [...] fevers, chills or sweats. She presented to [facility] ED and was found to be bradycardic [...] She has no family history of early IN. Her sister was diagnosed with ToF at [...] 5 mg immediate release tablet PNV with yymobos-eggf-FK 27 mg iron- 1 mg tablet polyethylene [...] Ringer's, 50 mL/hr, Last Rate: 50 mL/hr (10/04/2013) magnesium sulfate, 2 g/hr, Last Rate: 2 [...] allergic patients, please contact the laboratory at [phone] to request susceptibility testing * * * [...] 5PM or on weekends, please page the bed placement coordinator material control supervisor with any questions or concerns. Solitario Elena MD College Administrator, PGY-IV Maternal Cardiology 12:45 AM 10/04/20 Cosigned by Liliana Munson MD at 10/04/2020 5:01 PM CDT * Sohan Tuttle MD - 10/04/2020 12:04 AM CDT H&P Chief Complaint: SOB,LOZANO Provider: [facility] HPI: Steve Shi is a 25 y.o. female who is POD#6 pLTCS. Her was complicated byIUGR and MJ use. Patient underwent an uncomplicated pLTCS on 09/28/20. She presented to [facility] with SOB that woke her up from [...] Name: JUDAH SHI Apgar1: 8 Apgar5: 9 BODY SHOP ESTIMATOR History: Patient's last menstrual period was 12/27/2019. [...] 5 mg immediate release tablet PNV with xuugvda-zbqh-EX 27 mg iron- 1 mg tablet polyethylene [...] and heart size probably wnl. BSUS per bed placement coordinator c/f pulmonary hypertension. Continue tele with continuous [...] cough, fevers,chills or sweats. She presented to [facility] ED and was found to be bradycardic [...] She has no family history of early IN. Her sister was diagnosed with ToF at [...] 5 mg immediate release tablet PNV with omxgcrv-chmt-IY 27 mg iron- 1 mg tablet polyethylene [...] allergic patients, please contact the laboratory at [phone] to request susceptibility testing * * * [...] 5PM or on weekends, please page the bed placement coordinator material control supervisor with any questions or concerns. Solitario Elena MD College Administrator, PGY-IV Maternal Cardiology 12:45 AM 10/04/20 Cosigned [...] 1586 and hsTnT 86 -->125. Transferred to [facility]. HsTnI 637 -->711. CXR with pulmonary edema. [...] wall motion abnormalities raise concern for peripartum IN, most commonly due to SCAD. Elevated cardiac [...] Notes * Plan of Care - Charly Millard RN - 10/05/2020 11:10 PM CDT Goals: [...] Discharge * Perioperative Nursing Note - Charlotte Marin RN - 10/05/2020 7:39 PM CDT Pt is [...] Units 80 Units/kg intravenous Q6H PRN Farrah Aguirre MD ??? heparin in 0.45% sodium chloride 25,000 units/250 mL (100 units/mL) infusion (premix) 0-33 Units/kg/hr intravenous Titrated Farrah Aguirre MD 20.1 mL/hr at 10/05/20 0914 21.68 Units/kg/hr at 10/05/20 0914 ??? metoprolol tartrate (LOPRESSOR) immediate release tablet 12.5 mg 12.5 mg oral BID Katy Sykes MD 12.5 mg at 10/04/203 ??? ondansetron ODT (ZOFRAN-ODT) disintegrating tablet 4 mg 4 mg oral Q6H PRN Mary Diego MD Or ??? ondansetron (ZOFRAN) injection 4 mg 4 mg intravenous Q6H PRN Mary Diego MD ??? sodium chloride 0.9% flush 0.5-20 mL 0.5-20 mL intra-catheter Q8H [facility] Mary Diego MD 10 mL at 10/04/20 [...] 10/05/2020 2:59 PM CDT * Plan of Timmy - Natacha Gomes RN - 10/05/2020 10:40 [...] Outcome: Progressing * Plan of Care - Lilian Johnson - 10/04/2020 5:15 AM [...] will improve Outcome: Progressing Cosigned by Kell William, RN at 10/04/2020 7:00 AM CDT documented [...] 5:32 PM CDT Cardiac Catheterization Operative Report Shaista Shi [id number] 10/05/2020 No, Physician Patient Clinical Profile: Mrs [...] consent. The patient was brought to the cath lab manager after IV hydration was continued and oral premedication was given. I provided direct face to face monitoring of intravenous conscious sedation which was administered using Fentanyl and Versed by an independently certified nurse ??for a total of 25 minutes. 2% Lidocaine was used for local anesthesia A angiocatheter was used to access was obtained ??the right radial artery, A ??4/5 danish slender sheath was inserted into the right radial artery.. Intraradial nicardipine and nitroglycerin was administered. Once access was obtained in the ascending aorta heparin was administered. A tiger wire was advanced into the ascedning aorta. The patient had a 5 danish Rita catheter was advanced from the radial [...] recommendations: TR band care Kendell Ingram MD hydraulic press operator Co-Manager It Training of Valvular Heart Disease 10/05/2020 5:31 PM Liliana Anna MD CV CARDIAC CATH PROCEDURES Final Result * (ABNORMAL) aPTT (10/05/2020 8:04 AM CDT) aPTT 103(H) 27 - 37 sec [facility] Comment: Interpretive Data Therapeutic heparin range: 60.0 [...] discontinued. Theodore Mohr MD LAB BLOOD ORDERABLES Fi nal Result Performing Organization Address [facility] de Phone Number [facility] [place] [address] * (ABNORMAL) aPTT (10/05/2020 1:59 AM CDT) aPTT 75(H) 27 - 37 sec [facility] Comment: Interpretive Data Therapeutic heparin range: 60.0 - 94.0 seconds. Based on correlation with therapeutic heparin activity range of 0.3-0.7 Units/mL. Current interpretive data was last revised on 2020. Blood specimen (specimen) 10/05/2020 1:59 AM CDT 10/05/2020 2:27 AM CDT Narrative [facility] - 10/05/2020 2:50 AM CDT Draw STAT PTT 6 hrs after initial heparin bolus, after each rate change, and every 6 hours until 2 consecutive PTTs are within therapeutic range. Once two consecutive PTT's are therapeutic (60-94.9 seconds), then draw PTT every AM until heparin is discontinued. Theodore Mohr MD LAB BLOOD ORDERABLES nal Result Performing Organization Address [facility] de Phone Number [facility] [place] [employer] [place] [address] * (ABNORMAL) aPTT (10/04/2020 5:59 PM CDT) aPTT 25(L) 27 - 37 sec [facility] Comment: Interpretive Data Therapeutic heparin range: 60.0 - 94.0 seconds. Based on correlation with therapeutic heparin activity range of 0.3-0.7 Units/mL. Current interpretive data was last revised on 2020. Blood specimen (specimen) 10/04/2020 5:59 PM CDT 10/04/2020 6:07 PM CDT Narrative [facility] - 10/04/2020 6:36 PM CDT Unless preformed in the last 48 hours. Draw prior to heparin administration. us Theodore Mohr MD LAB BLOOD ORDERABLES Fi nal Result [facility] Department [place] [address] * (ABNORMAL) Comprehensive metabolic panel (10/04/2020 4:29 PM CDT) Sodium 138 135 - 145 mmol/L [facility] Potassium, pl See Comment 3.3 - 4.9 mmol/L [facility] Comment:Credited; Hemolyzed Specimen Chloride 102 97 - 110 mmol/L [facility] CO2 24 22 - 32 mmol/L [facility] Anion gap 12 2 - 15 mmol/L [facility] BUN 13 8 - 25 mg/dL [facility] Creatinine 1.04 0.60 - 1.10 mg/dL [facility] Glucose 104 70 - 199 mg/dL [facility] Comment: Interpretive Data Fasting glucose >/= [...] 2017. Calcium 8.4(L) 8.5 - 10.3 mg/dL [facility] Bilirubin, total <0.2 0.1 - 1.2 mg/dL [facility] Comment:Reviewed Protein, pl 6.1(L) 6.5 - 8.5 g/dL [facility] Albumin 3.1(L) 3.5 - 5.0 g/dL [facility] Alk phos 85 40 - 130 Units/L [facility] Comment:Hemolyzed; result ma y be falsely decreased ALT See Comment 7 - 45 Units/L [facility] Comment:Credited; Hemolyzed Specimen AST See Comment 10 - 45 Units/L [facility] Comment:Credited; Hemolyzed Specimen Blood specimen (specimen) 10/04/2020 4:29 PM CDT 10/04/2020 5:11 PM CDT Prince Cruz MD LAB BLOOD ORDERAB LES Final Result Performing Organization Address [facility] de Phone Number [facility] [place] [employer] [address] * (ABNORMAL) CBC without differential (10/04/2020 4:29 PM CDT) [facility] WBC 8.1 3.8 - 9.9 K/cumm [facility] Hgb 10.6(L) 11.9 - 15.5 g/dL [facility] Hct 32.5(L) 35.6 - 45.5 % [facility] Plt 263 150 - 400 K/cumm [facility] MPV 12.3 9.1 - 12.3 fL [facility] RBC 3.89(L) 3.90 - 5.20 M/cumm [facility] MCV 83.5 81.3 - 96.4 fL [facility] MCH 27.2 27.1 - 33.3 pg [facility] MCHC 32.6 32.3 - 35.7 g/dL [facility] RDW CV 14.2 11.1 - 14.9 % [facility] RDW SD 41.3 35.7 - 48.1 fL [facility] NRBC abs 0.00 0.00 - 0.01 K/cumm [facility] Blood specimen (specimen) 10/04/2020 4:29 PM CDT 10/04/2020 5:11 PM CDT Prince Cruz MD LAB BLOOD ORDERAB LES Final Result Performing Organization Address [facility]/ZIP Co de Phone Number [facility] [place] [employer] [place] [address] * (ABNORMAL) Troponin I high-sensitivity (10/04/2020 4:29 PM CDT) Trop I hs 450(C) <=17 ng/L [facility] Comment: Previous critical value noted 3 hours ago. Interpretive Data For further hscTnI resources including the diagnostic algorithm and an aid in interpretation, copy and paste this link: [email or web address] Current Interpretive Data last revised 2019. Blood specimen (specimen) 10/04/2020 4:29 PM CDT 10/04/2020 5:11 PM CDT Sohan Tuttle MD LAB BLOOD ORDERABLES Final Result Performing Organization Address City/[facility]/ZIP Co de Phone Number [facility] Department [place] [address] * (ABNORMAL) Magnesium (10/04/2020 12:32 PM CDT) [facility] Magnesium 4.5(H) 1.4 - 2.5 mg/dL [facility] Blood specimen (specimen) 10/04/2020 12:32 PM CDT 10/04/2020 12:48 PM CDT Prince Cruz MD LAB BLOOD ORDERAB LES Final Result Performing Organization Address City/[facility]/ZIP Co de Phone Number [facility] Department [place] [address] * (ABNORMAL) Troponin I high-sensitivity (10/04/2020 12:32 PM CDT) Trop I hs 762(C) <=17 ng/L [facility] Comment: Previous critical value noted 5 hours ago. Interpretive Data For further hscTnI resources including the diagnostic algorithm and an aid in interpretation, copy and paste this link: [email or web address]/[email or web address] Current Interpretive Data last revised 2019. Blood specimen (specimen) 10/04/2020 12:32 PM CDT 10/04/2020 12:48 PM CDT us Sohan Tuttle MD LAB BLOOD ORDERABLES Final Result [facility] Department [place] [address] * TRANSTHORACIC ECHO (TTE) COMPLETE W DOPPLER/CF W CONTRAST (10/04/2020 11:29 AM CDT) Anatomical Region Laterality Modality Ultrasound 10/04/2020 10:0 5 AM CDT Narrative 10/04/2020 12:09 PM CDT Patient name: Steve Shi Date of test: 10/04/2020 Type of test: TTE w/Doppler [facility] #: [id number] Date of : 1995 (F) Emergency Medcl Emt: Mechelle Ko RDCS Referring Physician: SOHAN TUTTLE MD Contrast Agent: 2.6 ml Optison Administered, (0.4 ml wasted). Contrast Administered by: Kell Hernández RN Supervised/Interpreted by: Prince Ovalle MD Diagnosis: Location: [facility] Reason for test: SOB, Eval PHT [id number] MV Structure: Normal, ?MV Motion: Normal, ?? [...] 2=Hypo 3=Akinetic 4=Dyskin./Aneurysm 0=Not visualized) Parasternal [place]:MAS=1 BAS=2 MIL=1 DAMIAN=1 Parasternal [place]:MAS=1 MIS=1 IN=1 MIL=1 MAL=1 MA=1 Apical 4 Chambers:=1 MIS=1 BIS=2 BAL=1 MAL=1 AL=1 AC=1 Apical 2 Chambers:AI=1 IN=1 BI=1 BA=1 MA=1 AA=1 AC=1 LV Global [...] MD By signing this report, the attending speech scientist certifies that he or she has personally supervised and interpreted the echocardiogram and has reviewed and or edited and agrees with the written comments contained within the report. Procedure Note Prince Ovalle MD - 10/04/2020 Patient name: Steve Shi Date of test: 10/04/2020 Type of test: TTE /Ltac, Located [facility] #: [id number] Date of : 1995 (F) Emergency Medcl Emt: Mechelle Ko JUANITA Referring Physician: SOHAN TUTTLE MD Contrast Agent: 2.6 ml Optison Administered, (0.4 ml wasted). Contrast Administered by: Kell Hernández RN Supervised/Interpreted by: Prince Ovalle MD Diagnosis: Location: [facility] Reason for test: SOB, Eval PHT [id number] MV Structure: Normal, MV Motion: Normal, Mitral [...] 2=Hypo 3=Akinetic 4=Dyskin./Aneurysm 0=Not visualized) Parasternal [place]:MAS=1 BAS=2 MIL=1 DAMIAN=1 Parasternal [place]:MAS=1 MIS=1 IN=1 MIL=1 MAL=1 MA=1 Apical 4 Chambers:=1 MIS=1 BIS=2 BAL=1 MAL=1 AL=1 AC=1 Apical 2 Chambers:AI=1 IN=1 BI=1 BA=1 MA=1 AA=1 AC=1 LV Global [...] MD By signing this report, the attending speech scientist certifies that he or she has personally supervised and interpreted the echocardiogram and has reviewed and or edited and agrees with the written comments contained within the report. Sohan Tuttle MD CV ECHO PROCEDURES Final R esult * (ABNORMAL) Troponin I high-sensitivity (10/04/2020 9:40 AM CDT) Trop I hs 479(C) <=17 ng/L [facility] Comment: Previous critical value noted 2 hours ago. Interpretive Data For further hscTnI resources including the diagnostic algorithm and an aid in interpretation, copy and paste this link: [email or web address]/show/[email or web address] Current Interpretive Data last revised 2019. Blood specimen (specimen) 10/04/2020 9:40 AM CDT 10/04/2020 6:09 PM CDT Sohan Tuttle MD LAB BLOOD ORDERABLES Final Result [facility] Department [place] [address] * CT Chest PE (CTA) W Contrast (10/04/2020 9:25 AM CDT) Anatomical Region Laterality Modality Body N/A Computed Tomogra phy 10/04/2020 9:47 AM CDT Impressions 10/04/2020 10:34 AM CDT 1. ??No acute pulmonary embolus. 2. ??Mild pulmonary edema and small bilateral pleural effusions, and mild body wall edema. Dictated by: Tera Daavlos M.D. The radiology attending physician has personally [...] the 3-D workstation and sent to the [employer] archival system. ?? HISTORY: day 5 presenting [...] it. Electronically signed by: Abhishek Guerra M.D. Sohan Tuttle MD IMG CT PROCEDURES Final [...] K/cumm [facility] Neutrophil pct 77.4 % [facility] Comment: Interpretive Data Percent cell count reference ranges are not reported, since discordance with absolute values may lead to misinterpretation of CBC data. Current Interpretive Data was last revised on 2017. Imm gran pct 0.8 % [facility] Comment: Interpretive Data Percent cell count reference ranges are not reported, since discordance with absolute values may lead to misinterpretation of CBC data. Current Interpretive Data was last revised on 2017. Lymphocyte pct 14.9 % [facility] Comment: Interpretive Data Percent cell count reference ranges are not reported, since discordance with absolute values may lead to misinterpretation of CBC data. Current Interpretive Data was last revised on 2017. Monocyte pct 6.6 % [facility] Comment: Interpretive Data Percent cell count reference ranges are not reported, since discordance with absolute values may lead to misinterpretation of CBC data. Current Interpretive Data was last revised on 2017. Eosinophil pct 0.1 % [facility] Comment: Interpretive Data Percent cell count reference ranges are not reported, since discordance with absolute values may lead to misinterpretation of CBC data. Current Interpretive Data was last revised on 2017. Basophil pct 0.2 % [facility] Comment: Interpretive Data Percent cell count reference ranges are not reported, since discordance with absolute values may lead to misinterpretation of CBC data. Current Interpretive Data was last revised on 2017. Blood specimen (specimen) 10/04/2020 7:04 AM CDT 10/04/2020 7:36 AM CDT us Sohan Tuttle MD LAB BLOOD ORDERABLES Final Result [facility] Department [place] [address] * Comprehensive metabolic panel (10/04/2020 7:04 AM CDT) Sodium 142 135 - 145 mmol/L [facility] Potassium, pl 3.8 3.3 - 4.9 mmol/L [facility] Chloride 106 97 - 110 mmol/L [facility] CO2 24 22 - 32 mmol/L [facility] Anion gap 12 2 - 15 mmol/L [facility] BUN 13 8 - 25 mg/dL [facility] Creatinine 1.03 0.60 - 1.10 mg/dL [facility] Glucose 87 70 - 199 mg/dL [facility] Comment: Interpretive Data Fasting glucose >/= [...] 2017. Calcium 9.0 8.5 - 10.3 mg/dL [facility] Bilirubin, total 0.2 0.1 - 1.2 mg/dL [facility] Protein, pl 6.6 6.5 - 8.5 g/dL [facility] Albumin 3.5 3.5 - 5.0 g/dL [facility] Alk phos 104 40 - 130 Units/L [facility] ALT 40 7 - 45 Units/L [facility] AST 45 10 - 45 Units/L [facility] Blood specimen (specimen) 10/04/2020 7:04 AM CDT 10/04/2020 8:14 AM CDT us Sohan Tuttle MD LAB BLOOD ORDERABLES Final Result [facility] Department [place] [address] * (ABNORMAL) CBC with auto differential (10/04/2020 7:04 AM CDT) WBC 9.7 3.8 - 9.9 K/cumm [facility] Hgb 10.8(L) 11.9 - 15.5 g/dL [facility] Hct 33.4(L) 35.6 - 45.5 % [facility] Plt 307 150 - 400 K/cumm [facility] MPV 11.1 9.1 - 12.3 fL [facility] RBC 4.01 3.90 - 5.20 M/cumm [facility] MCV 83.3 81.3 - 96.4 fL [facility] MCH 26.9(L) 27.1 - 33.3 pg [facility] MCHC 32.3 32.3 - 35.7 g/dL [facility] [facility] CV 13.7 11.1 - 14.9 % [facility] RDW SD 41.8 35.7 - 48.1 fL [facility] NRBC abs 0.00 0.00 - 0.01 K/cumm [facility] Blood specimen (specimen) 10/04/2020 7:04 AM CDT 10/04/2020 7:36 AM CDT Sohan Tuttle MD LAB BLOOD ORDERABLES Final Result Performing Organization Address [facility] Co de Phone Number [facility] [place] [place] [address] * (ABNORMAL) Troponin I high-sensitivity (10/04/2020 7:04 AM CDT) Pathologist [facility] Trop I hs 711(C) <=17 ng/L [facility] Comment: Previous critical value noted 5 hours ago. Interpretive Data For further hscTnI resources including the diagnostic algorithm and an aid in interpretation, copy and paste this link: [email or web address].testcatalog.org/[email or web address] Current Interpretive Data last revised 2019. Blood specimen (specimen) 10/04/2020 7:04 AM CDT 10/04/2020 8:00 AM CDT Sohan Tuttle MD LAB BLOOD ORDERABLES Final Result Performing Organization Address [facility] Co de Phone Number [facility] Department [place] [address] * ECG 12 lead (10/04/2020 6:00 AM CDT) Ventricular Rate EKG/Min 74 BPM [facility] Atrial Rate 74 BPM [facility] [place]-Interval (MSEC) 190 ms [facility] QRS-Interval (MSEC) 66 ms [facility] QT-Interval (MSEC) 390 ms [facility] QTc 432 ms [facility] P [place] 66 degrees [facility] R [place] 86 degrees [facility] T [place] 76 degrees [facility] Diagnosis Normal sinus rhythm with sinus arrhythmia Anteroseptal infarct , age undetermined Abnormal ECG No previous ECGs available Confirmed by CALE COLLAZO M.D ([id number]) on 10/04/2020 4:11:39 PM [facility] 10/04/2020 6:00 AM CDT 10/04/2020 4:11 PM CDT us Sohan Tuttle MD ECG ORDERABLES Final Resu lt Performing Organization Address [facility] Co de Phone Number [facility] * ECG 12 lead (10/04/2020 3:16 AM CDT) Ventricular Rate EKG/Min 58 BPM [facility] Atrial Rate 58 BPM [facility] [place]-Interval (MSEC) 176 ms [facility] QRS-Interval (MSEC) 76 ms [facility] QT-Interval (MSEC) 420 ms [facility] QTc 412 ms [facility] P [place] 60 degrees [facility] R [place] 81 degrees [facility] T [place] 67 degrees [facility] Diagnosis Sinus bradycardia with sinus arrhythmia Septal infarct (cited on or before 03-OCT-2020) Abnormal ECG When compared with ECG of 03-OCT-2020 23:56, (unconfirmed) No significant change was found Confirmed by CALE COLLAZO M.D ([id number]) on 10/04/2020 4:11:35 PM [facility] 10/04/2020 3:16 AM CDT 10/04/2020 4:11 PM CDT Sohan Tuttle MD ECG ORDERABLES Final Resu lt Performing Organization Address [facility]/ZIP Co de Phone Number [facility] * Critical result callback Cardio chemistry (10/04/2020 1:42 AM CDT) Date Notified [id number] [facility] Time Notified 239 [facility] Test name Troponin I hs [facility] Called/Read Back Audrey Medina [facility] Credentials RN [facility] Called By JEAN CARLOS [facility] Blood specimen (specimen) 10/04/2020 1:42 AM CDT 10/04/2020 2:03 AM CDT Sohan Tuttle MD LAB BLOOD ORDERABLES Final Result Performing Organization Address [facility] de Phone Number [facility] Department [place] [address] * (ABNORMAL) Troponin I high-sensitivity (10/04/2020 1:42 AM CDT) [facility] Trop I hs 637(C) <=17 ng/L [facility] Comment: Critical result called to and read back by Audrey Medina (KAMERON) on 10/04/2020 02:40:33 CDT to JEAN CARLOS. Interpretive Data For further [facility] resources including the diagnostic algorithm and an aid in interpretation, copy and paste this link: [email or web address]/[email or web address] Current Interpretive Data last revised 2019. Blood specimen (specimen) 10/04/2020 1:42 AM CDT 10/04/2020 2:03 AM CDT Sohan Tuttle MD LAB BLOOD ORDERABLES Final Result Performing Organization Address [facility] de Phone Number [facility] [place] [address] * (ABNORMAL) Protein / creatinine ratio, urine, random (10/04/2020 12:41 AM CDT) [facility] Protein, ur, quant 14.2 mg/dL [facility] Comment: Interpretive Data No reference range established. Current interpretive data was last revised 2018. Creatinine Ur 51.1 mg/dL [facility] Comment: Interpretive Data No reference range established. Current interpretive data was last revised 2018. Protein/creatinin e ratio 277.9(H) 0.0 - 180.0 mg/g CR [facility] Urine 10/04/2020 12:4 1 AM CDT 10/04/2020 1:09 AM CDT Narrative E[facility]ICE BAEZ - 10/04/2020 1:40 AM CDT Straight cath or harris Sohan Tuttle MD LAB URINE ORDERABLES Final Result [facility] Department [place] [address] * (ABNORMAL) Drug screen, urine (10/04/2020 12:41 AM CDT) [facility] Drug screen, ur Positive( A) [facility] Comment: Report corrected on 10/04/2020 08:32:35 CDT by LB: Previously reported as Negative. Telephone report made to: Tracy Mai ([id number]) on 10/04/2020 08:32:35 CDT by LB. Interpretive Data This test detects the presence of approximately 50 substances using LC-tandem mass spectrometry. For a list of specific compounds and detection limits refer to the Lab Test Guide Book. While this technique is highly specific, false-positive and false-negative findings may occur in very rare circumstances. Contact the Multigraph Operator material control supervisor ([phone]) for consultation if needed. This test was developed and its performance characteristics determined by [facility]. It has not been cleared or approved by the U.S. Food and Drug Administration. Current interpretive data was last revised 2020. Testing performed by: [facility], [facility], [place]., [address] Director Review Amended(A ) [facility] Comment: Upon Multigraph Operator Review, the following additional compounds were detected: - Oxycodone Repeated and verified. Report corrected on 10/04/2020 08:32:35 CDT by LB: Previously reported as Negative. Telephone report made to: Tracy Mai ([id number]) on 10/04/2020 08:32:35 CDT by LB. Testing performed by: [facility], [facility], [place]., [address] Urine 10/04/2020 12:4 1 AM CDT 10/04/2020 1:19 AM CDT Sohan Tuttle MD LAB URINE ORDERABLES Edite d Result - Final Performing Organization Address City/[facility]/ZIP Co de Phone Number [facility] Department [place] [address] * ECG 12 lead (10/03/2020 11:56 PM CDT) Pathologist [facility] Ventricular Rate EKG/Min 58 BPM [facility] Atrial Rate 58 BPM [facility] [place]-Interval (MSEC) 168 ms [facility] QRS-Interval (MSEC) 70 ms [facility] QT-Interval (MSEC) 444 ms [facility] QTc 435 ms [facility] P [place] 66 degrees [facility] R [place] 84 degrees [facility] T [place] 70 degrees [facility] Diagnosis Sinus bradycardia with sinus arrhythmia Septal infarct , age undetermined Abnormal ECG No previous ECGs available Confirmed by CALE COLLAZO M.D ([id number]) on 10/04/2020 4:11:32 PM [facility] 10/03/2020 11:5 6 PM CDT 10/04/2020 4:11 PM CDT Sohan Tuttle MD ECG ORDERABLES Final Resu lt Performing Organization Address [facility]/ZIP Co de Phone Number [facility] [employer] [facility] documented in this encounter Visit [...] Given 10/05/2020 10:47 PM CDT 5 mg fentaNYL (SUBLIMAZE) preservative free injection As needed, Starting on Thu10/05/20 at 1651, Intra-Procedure (CV) Given 10/05/2020 5:12 PM CDT 25 mcg Given 10/05/2020 5:02 PM CDT 12.5 mcg Given 10/05/2020 4:51 PM CDT 25 mcg heparin 1,000 unit/mL injection 3,700 Units 3,700 Units (rounded from 3,704 Units = 40 Units/kg ? 92.6 kg), intravenous, Every 6 hours PRN, PTT 40-50.9 seconds, Starting on Mare 10/04/20 at 1718, Subsequent bolus during heparin infusion., Indications: Venous ThrombosisIndications:V enous Thrombosis heparin 1,000 unit/mL injection 7,400 Units 7,400 Units (rounded from 7,408 Units = 80 Units/kg ? 92.6 kg), intravenous, Every 6 hours PRN, PTT less than 40 seconds, Starting on Mare 10/04/20 at 1718, Subsequent bolus during heparin infusion., Indications: Venous ThrombosisIndications:V enous Thrombosis heparin 1,000 unit/mL injection As needed, Starting on Thu10/05/20 at 1713, Intra-Procedure (CV) Given 10/05/2020 5:13 PM CDT 6,000 Units heparin in 0.45% sodium chloride 25,000 units/250 [...] AM until heparin is discontinued., Indications: Venous ThrombosisIndications:V enous Thrombosis Rate/Dose Change 10/05/2020 9:14 AM CDT 21.68 Units/kg/hr 20.1 mL/hr New Bag 10/05/2020 7:55 AM CDT 22.678 Units/kg/hr 21 mL /hr Rate/Dose Verify 10/05/2020 2:55 AM CDT 22.678 Units/kg/hr 21 mL/hr ioversoL (OPTIRAY 350) injection As needed, Starting on Thu10/05/20 at 1722, Intra-Procedure (CV) Given 10/05/2020 5:22 PM CDT 30 mL lidocaine (XYLOCAINE) 10 mg/mL (1 %) injection As needed, Starting on Thu10/05/20 at 1701, Intra-Procedure (CV), Indications: Administration of Local AnesthesiaIndications:Administrati on of Local Anesthesia Given 10/05/2020 5:01 PM CDT 10 mL Right Radial metoprolol tartrate (LOPRESSOR) immediate release tablet 12.5 mg 12.5 mg, oral, 2 times daily, First dose on Mare 10/04/20 at 2100, Hold if HR<60 and notify MD Given 10/04/2020 9:03 PM CDT 12.5 mg midazolam (VERSED) 1 mg/mL preservative free injection Administer over 2 Minutes, As needed, Starting on Thu10/05/20 at 1651, Intra-Procedure (CV) Given 10/05/2020 5:12 PM CDT 1 mg Given 10/05/2020 5:02 PM CDT 0.5 mg Given 10/05/2020 4:51 PM CDT 1 mg ondansetron (ZOFRAN) injection 4 mg 4 [...] Pre-Delivery, Indications: Nausea and VomitingIndications:Nausea and Vomiting sodium chloride 0.9% flush 0.5-20 mL 0.5-20 [...] For 1 dose, L&D Pre-Delivery, Indications: Pre-Eclampsia 12 (Bolus from Bag - Provider: Kell William [...] 2100, Hold if HR<60 and notify MD 2103 (Given - Provider: Zainab Lopez, KAMERON) 0911 (Hold - Provider: Natacha Gomes RN - Reason: Order parameters not met)164 (JUN Hold - Provider: Automatic Transfer Provider - Reason: Patient not available)2100 (Dose Auto Held - Provider: Automatic Transfer Provider)2146 (JUN Unhold - Provider: Automatic Transfer Provider) sodium chloride 0.9% flush 0.5-20 mL 0.5-20 mL, intra-catheter, Every 8 hours scheduled, First dose on Mare 10/04/20 at 0015, L&D Pre-Delivery, Flush volume based on line type and size. , Indications: Flushing 0113 (Not Given - Provider: Lilian Johnson - Reason: IV Infusing)0655 (Not Given - Provider: Kell William, KAMERON - Reason: IV Infusing)1406 (Not Given - Provider: Tracy Mai RN - Reason: IV Infusing)1638 (Given - Provider: Tracy Mai, KAMERON) 0205 (Not Given - Provider: Zainab Lopez RN - Reason: IV Infusing)0646 (Not Given - Provider: Zainab Lopez RN - Reason: IV Infusing)1400 (Not Given - Provider: Emely Serrano RN - Reason: IV Infusing)1641 (JUN Hold - Provider: Automatic Transfer Provider - Reason: Patient not available)214 (JUN Unhold - Provider: Automatic Transfer Provider)220 (Due - Provider: Automatic Transfer Provider) Continuous Medication Order 10/03/2020 10/04/2020 10/05/2020 dextrose 5% and Lactated Ringer's infusion 50 mL/hr, intravenous, Continuous, Starting on Mare 10/04/20 at 0030 0014 (New Bag - Provider: Kell William, KAMERON)0854 (Stopped - Provider: Tracy Mai RN - Comment: patient off floor for test)0935 (Restarted - Provider: Tracy Mai RN) 1537 (Hold - Provider: Leyda Bravo RN [...] change required)0755 (New Bag - Provider: Natacha Gomes, KAMERON)0914 (Rate/Dose Change - Provider: Natacha Gomes, KAMERON)1520 (Stopped - Provider: Rosana Cuba RN - [...] for test)0935 (Restarted - Provider: Tracy Mai, KAMERON)1355 (New Bag - Provider: Tracy Mai RN)1909 [...] (JUN Unhold - Provider: Automatic Transfer Provider) fentaNYL (SUBLIMAZE) preservative free injection (CANCELED) As needed, Starting on Thu10/05/20 at 1651, Intra-Procedure (CV) 1651 (Given - Provid er: Sheri Acuna, KAMERON)1702 (Given - Provider: Sheri Acuna, KAMERON)1712 (Given - Provider: Sheri Acuna, KAMERON) heparin 1,000 unit/mL injection 3,700 Units(Linked Group 1) 3,700 Units (rounded from 3,704 Units = 40 Units/kg ? 92.6 kg), intravenous, Every 6 hours PRN, PTT 40-50.9 seconds, Starting on Mare 10/04/20 at 1718, Subsequent bolus during heparin infusion., Indications: Venous Thrombosis 1641 ([facility] Hold - Provider: Automatic Transfer Provider - Reason: Patient not available)2147 ([facility] Unhold - Provider: Automatic Transfer Provider) heparin 1,000 unit/mL injection 7,400 Units(Linked Group 1) 7,400 Units (rounded from 7,408 Units = 80 Units/kg ? 92.6 kg), intravenous, Every 6 hours PRN, PTT less than 40 seconds, Starting on Mare 10/04/20 at 1718, Subsequent bolus during heparin infusion., Indications: Venous Thrombosis 164 ([facility] Hold - Provider: Automatic Transfer Provider - Reason: Patient not available)214 ([facility] Unhold - Provider: Automatic Transfer Provider) heparin 1,000 unit/mL injection (CANCELED) As needed, Starting on Thu10/05/20 at 1713, Intra-Procedure (CV) 1713 (Given - Provid er: Kendell Ingram MD) ioversoL (OPTIRAY 350) injection (CANCELED) As needed, Starting on Thu10/05/20 at 1722, Intra-Procedure (CV) 1722 (Given - Provid er: Kendell Ingram MD) ioversoL (OPTIRAY 350) syringe syringe 100 mL (COMPLETED) 100 mL, intravenous, Once in imaging, contrast, Starting on Mare 10/04/20 at 0903, For 1 dose 0921 (Contrast Given - Provider: Beronica John, RT) lidocaine (XYLOCAINE) 10 mg/mL (1 %) injection (CANCELED) As needed, Starting on Thu10/05/20 at 1701, Intra-Procedure (CV), Indications: Administration of Local Anesthesia 1700 (Given - Provid er: Margaret Osorio MD PhD) midazolam (VERSED) 1 mg/mL preservative free injection (CANCELED) Administer over 2 Minutes, As needed, Starting on Thu10/05/20 at 1651, Intra-Procedure (CV) 165 (Given - Provid er: Sheri Acuna, KAMERON)1702 (Given - Provider: Sheri Acuna, KAMERON)1712 (Given - Provider: Sheri Acuna RN) ondansetron (ZOFRAN) injection 4 mg(Linked Group 2) 4 mg, intravenous, Administer over 2 Minutes, Every 6 hours PRN, nausea, vomiting, if not tolerating PO, Starting on Thu10/03/20 at 2336, L&D Pre-Delivery, Indications: Nausea and Vomiting 1641 ([facility] Hold - Provider: Automatic Transfer Provider - Reason: Patient not available)2146 ([facility] Unhold - Provider: Automatic Transfer Provider) ondansetron ODT (ZOFRAN-ODT) disintegrating tablet 4 mg(Linked Group 2) 4 mg, oral, Every 6 hours PRN, nausea, vomiting, Starting on Thu10/03/20 at 2336, L&D Pre-Delivery, Indications: Nausea and Vomiting 1641 ([facility] Hold - Provider: Automatic Transfer Provider - Reason: Patient not available)2146 ([facility] Unhold - Provider: Automatic Transfer Provider) perflutren [...] 1016 (Given - Provid er: Emely Serrano RN)164 ([facility] Hold - Provider: Automatic Transfer Provider - Reason: Patient not available)2146 ([facility] Unhold - Provider: Automatic Transfer Provider) Linked Groups Order Group 1: heparin 1,000 unit/mL injection 3,700 UnitsJump to med 3,700 Units (rounded from 3,704 Units = 40 Units/kg ? 92.6 kg), intravenous, Every 6 hours PRN, PTT 40-50.9 seconds, Starting on Mare 6/24/21 at 1718, Subsequent bolus during heparin infusion., [...] 6 hours PRN, nausea, vomiting, Starting on 10/03/20 at 2336, L&D Pre-Delivery, Indications: Nausea and Vomiting Or ondansetron (ZOFRAN) injection 4 mgJump to med 4 mg, intravenous, Administer over 2 Minutes, Every 6 hours PRN, nausea, vomiting, if not tolerating PO, Starting on 10/03/20 at 2336, L&D Pre-Delivery, Indications: Nausea and Vomiting documented in this encounter Orders Medications Ordered That Alex ht Not Have Been Administered Count Last Ordered Date First Ordered Date aspirin chewable tablet 162 mg 1 10/05/2020 enalapril (VASOTEC) tablet 5 mg 1 sodium chloride 0.9% infusion 1 10/05/2020 furosemide (LASIX) 10 mg/mL injection 20 mg 1 10/04/2020 heparin 1,000 unit/mL inject ion 3,700 Units 1 10/04/2020 heparin 1,000 unit/mL inject ion 7,400 Units 2 10/04/2020 heparin in 0.45% sodium chlo ride 25,000 units/250 mL (100 units/mL) infusion (premix) 1 10/04/2020 ioversoL (OPTIRAY 350) syrin ge syringe 100 mL 1 10/04/2020 metoprolol tartrate (LOPRESS OR) immediate release tablet 12.5 mg 1 10/04/2020 perflutren protein-a (OPTISO N) 3 mL in sodium chloride 0.9% 8 mL syringe 1 10/04/2020 acetaminophen (TYLENOL) tablet 1,000 mg 1 0 10/03/2020 calcium gluconate 100 mg/mL (10%) injection 1 g 1 10/03/2020 dextrose 5% and Lactated Ringer's infusion 1 10/03/2020 enoxaparin (LOVENOX) syringe 40 mg 1 2020 Lactated Ringer's (LR) bolus 500 mL 1 10/03 magnesium sulfate 20 g/500 m L in water infusion (premix) 1 10/03/2020 magnesium sulfate bolus from bag 2 g 1 09/12 metoclopramide (REGLAN) tablet 10 mg 1 09/12 ondansetron (ZOFRAN) injection 4 mg 1 10/03 ondansetron ODT (ZOFRAN-ODT) disintegrating tablet 4 mg 1 10/03/2020 sodium chloride 0.9% flush 0.5-20 mL 2 09/12 Nursing Count Last Ordered Date First Orde [...] Date First Orde red Date CASE REQUEST CONDUCTOR SLEEPING CAR 1 10/04/2020 documented in this encounter Care Teams Asthma Educator Relationship Specialty Start Date End Date No, Physician PCP - General 11/01/16 documented as of this encounter
--- OUTSIDE RECORDS SUMMARY | 2024-04-02 11:54 | XMS_ITS | Encounter Summary ---
Author Organization [facility] Healthcare Address [address] [place] [address] Care Team Providers Care Plant Puller Name Role Phone No, Physician Primary Care Provider [phone] Reason for Visit * Reason Comments Routine Visit Encounter Details Date Type Department Care Team (Late st Contact Info) Description 09/24/2020 10:15 AM CDT Office Visit Obstetrics and Gynecology Clinic [address] [facility] 3rd [address] [place] [address] Amy Alvarez MD [address] [facility] [address] [place] [phone] [place] [address] Giuliana Crisostomo MD [address] [facility] [address] [phone] [place], [place] [id number] Family Hx Congenital Heart Disease (Primary Dx); Encounter for supervision of normal in first trimester, unspecified ; Poor growth affecting management of mother in third trimester, fetus 1 of multiple gestation; Maternal varicella, non-immune; Depression during in third trimester; Tobacco use Discharge Disposition: Discharge to home or self [...] of Binge Drinking Not on file 08/11 [place] Depression Scale Answer Date Recorded [place] Depression Scale Total 0 07/05/2020 The thought of harming myself has occurred to me . 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[employer] Gender Identity Female 12/02/2022 6:55 PM CDT Sexual Orientation Straight 12/02/2022 6: 55 PM CDT documented as of this encounter Last Filed Vital Signs Vital Sign Reading Time Taken Comments Blood Pressure 110/62 09/24/2020 10:44 AM CDT Pulse 80 09/24/2020 10:44 AM CDT Temperature 36.1 ??C (97 ??F) 09/24/2020 10:44 AM CDT Respiratory Rate 18 09/24/2020 10:44 AM CDT Oxygen Saturation 99% 09/24/2020 10:44 AM CDT Inhaled Oxygen Concentration - - Weight 95.4 kg (210 lb 4.8 oz) 09/24/2020 10:44 AM CDT Height - - Body Mass Index 36.1 08/20/2020 12:18 PM CDT documented in this encounter Patient Instructions * Patient Instructions* Amy Alvarez MD - 09/24/2020 10:15 AM CDT Contact us Office hours: Thursday-Thursday 8:30 AM-4:30 PM Phone number: [phone] Daytime: Call us if you have questions [...] medical problem, you can call us at [phone]. Please wait until the clinic is open for non-urgent needs as this emergency line cannot help with appointments, paperwork or prescriptions. If you have an emergency and cannot wait, please call 911 or go to the [facility] Emergency room. If you are having a problem with your or are in labor you can go to the [facility] [place] (check in near elevator on first floor) [address] [facility], [address]th [place] [address]. documented in this encounter Discharge Disposition Disposition Code Departure Means Destination Discharge to home or self care documented in this encounter Progress Notes * Amy Alvarez MD - 09/24/2020 10:15 AM CDT OB RETURN VISIT 09/24/2020 Subjective: Steve Shi is a 25 y.o. at 39w4d who presents for her return OB visit. movement: yes VB?: no LOF?: no Ctxns? no Objective: Vitals: 09/24/20 1044 BP: 110/62 BP Location: Right arm Patient Position: Sitting Pulse: 80 Resp: 18 Temp: 97 ??F TempSrc: Temporal SpO2: 99% Weight: 210 lb 4.8 oz (95.4 kg) Gen: No acute distress. Abdomen: Soft, nontender, gravid. FH 39 cm SVE 1.5/50/-3 Extremities: Warm, well perfused. No lower extremity edema/erythema/tenderness. BSUS: vertex presentation; FHR 148 Assessment/Plan: 25 y.o. at 39w4d. Problem List Circulatory Family Hx Congenital Heart Disease - Primary Overview IOB visit: Pt w/ sister w/ Tetrology of Fallot. Patient and FOB without hx of CHD. Several cousins on maternal side w/ CHD (unknown diagnosis). Counseled patient that risk of fetus being affected by CHD is likely very low. Discussed background population risk of any anomaly. Offered patient genetic counseling given FHx, pt declines at this time. 05/07: Anatomy US w/ 2 EIFs, otherwise structurally normal heart. Counseled pt, desires NIPT, ordered today. Plan [x] TTE wnl [x] low risk NIPT [x] growth US at 28 weeks (given EFW 12% on anatomy US) --> US 07/05 w/ IUGR based on AC <5%ile (see separate problem) Other Encounter for supervision of normal in first trimester Overview First Trimester: [x] Dating Criteria: 1T with primary OB [x] Labs: Rh positive, Ab negative, Rubella imm, HIV NR, HepBSAg NR, RPR NR, VZV NI [x] Genetic Screening: low risk NIPT. Negative CF screening. [x] Hgb electrophoresis (if indicated): AA [x] GC/CT/trich negative, UCx negative [x] Pap: NILM, 03/09/20 [x] ASA ppx, not indicated [x] [facility] referral (if indicated) [x] Early 1 hour GTT (if indicated) 2nd Trimester: [x] Anatomy ultrasound, notable for EIF; placenta anterior, no previa [x] CBC: Hgb 11.3, plt 226 [x] 1hr gtt at 24-28wks: 81 [x] Flu Shot (Dec-Mar): s/p flu shot 03/06/20 [x] Tdap (27-36wks): administered 07/05 [x] Rhogam (if Rh neg): NA 3rd Trimester: [x] CBC Hgb 11.6, plt 233/HIV neg/RPR NR/T&S Rh pos/Ab neg [x] GBS: POSITIVE [x] GC/CT/trich: neg Counseling: [x] Method of delivery: anticipate , IOL scheduled 09/27 @ 0600 [] Method of contraception: still undecided [x] Method of feeding: breast [] Clinical Services Director: [] Car seat: [] PP depression [x] COVID testing: plans to complete at [facility] Orders POCT urinalysis dipstick (Completed) Request for Ambulatory Collection Site Testing - Adult Tobacco use Overview Continues to cut down on cigarette/tobacco use in . Depression Overview Reports hx of depression, never on meds with current mood waxing/waning. Denies SI/HI. EPDS 11 at IOB visit. Referred to [facility]. Started on zoloft at 04/04 visit. 05/07: Stopped zoloft 2/2 side effects. Mood much improved w/ self coping, has appt w/ counselor. 06/21: EPDS 0, mood great. 07/26: Mood is good [] EPDS/mood check q visit Resolved IUGR Overview New onset IUGR on formal US 07/05 based on AC 5%ile. Overall weight 17%ile. Counseled patient on dx and etiologies of IUGR including constitutional, genetic, infectious and placental insufficiency. Low risk NIPT. Dated by 1T US. Recommend twice weekly testing and serial growth per IUGR protocol (ordered). - 07/26: US with EFW 1548 (19%), AC 9%ile, normal UA dopplers, BPP 8/8. - 08/02: Normal UA dopplers, BPP 8/8 - 08/09: Normal UA dopplers, BPP 8/8 - 08/16: EFW 2141 (23%), AC 33%, normal UA dopplers, BPP 8/8. IUGR resolved x 1. - 09/13: EFW 2817 (16%), AC 17%, IUGR resolved x2. Plan: No medical indication for 39 week delivery. Patient desires to defer risk- reducing induction of labor until her due date on 09/27. Maternal varicella, non-immune Overview - for varivax RTC for visit. Patient seen and discussed with Dr. Heredia. Cosigned by Audra Heredia MD at 09/24/2020 12:11 PM CDT Associated attestation - Audra Heredia MD - 09/24/2020 12:11 PM CDT I have seen and examined the patient. I agree with the findings and plan of care as documented in the resident/fellow's note. My total encounter time on 09/24/2020 was 7 minutes which was spent in theactivities documented in the note. This includes time spent prior to the visit and after the visit in direct care of the patient. This time does not include time spent in any separately reportable services. documented in this encounter Plan of Treatment Not on file documented as of this encounter Procedures Procedure Name Priority Date/Time Associated Diagnosis Comments POCT URINALYSIS DIPSTICK Routine 09/24/2020 10:50 AM CDT Encounter for supervision of normal in first trimester, unspecified documented in this encounter Results * (ABNORMAL) POCT urinalysis dipstick (09/24/2020 10:50 AM CDT) Glucose, ur, POC Negative Negative mg/dL Ketones, ur, POC Negative Negative Blood, ur, POC Negative Negative Protein, ur, POC Trace(A) Negative Nitrite, ur, POC Negative Negative Leukocytes, ur, POC Negative Negative Lot Number [id number] Urine 09/24/2020 10:5 0 AM CDT Amy Alvarez MD POINT OF CARE TEST ORDERABLES Fi nal Result documented in this encounter Visit Diagnoses Diagnosis Family Hx Congenital Heart Disease- Primary Unspecified congenital anomaly of heart Encounter for supervision of normal in first trimester, unspecified Poor growth affecting management of mother in third trimester, fetus 1 of multiple gestation Maternal varicella, non-immune Supervision of other normal Depression during in third trimester Tobacco use documented in this encounter Care Teams Plant Puller Relationship Specialty Start Date End Date No, Physician PCP - General 11/01/16 documented as of this encounter
--- OUTSIDE RECORDS SUMMARY | 2024-04-02 11:54 | XMS_ITS | Encounter Summary ---
Author Organization [facility] Healthcare Address [address] [place] [address] Care Team Providers Care Banking Supervisor Name Role Phone No, Physician Primary Care Provider [phone] Reason for Visit * Reason Comments Non-stress Test Encounter Details Date Type Department Care Team (Latest Contact Info) Description 09/17/2020 11:00 AM CDT Procedure visit Obstetrics and Gynecology Clinic [address] [facility] 3rd Floor [address] [place] [address] Poor growth affecting management of mother in third trimester, fetus 1 of multiple gestation; Encounter for supervision of normal in first trimester, unspecified Social History Tobacco Use Types Packs/Day Years [...] of Binge Drinking Not on file 08/11 [place] Depression Scale Answer Date Recorded [place] Depression Scale Total 0 07/05/2020 The thought of harming myself has occurred to me . 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 Alvarez. NST to be reviewed by Dr. Cobos. documented in this encounter Miscellaneous Notes * Addendum Note - Magen Eller CLT - 09/17/2020 11:00 AM CDTAddended by: MAGEN ELLER on: 09/17/2020 12:41 PM Modules accepted: Orders documented in this encounter Plan of Treatment Not on file documented as of this encounter Procedures Procedure Name Priority Date/Time Associated Diagnosis Comments GROUP B STREPTOCOCCUS CULTURE Routine 09/17/2020 12:41 PM CDT Encounter for supervision of normal in first trimester, unspecified documented in this encounter Results * (ABNORMAL) Group B streptococcal culture Vaginal/Rectal (09/17/2020 12:41 PM CDT) Report Final Report: Streptococcus agalactiae (Group B [...] allergic patients, please contact the laboratory at [phone] to request susceptibility testing * ??* ??* ??* ??* ??* ??* ??* ??* ??* ??* ??* ??* ??* ??* ??* ??* ??* ??* ??* (.) [facility] Organism STREPTOCOCCUS AGALACTIAE (GROUP B STREPTOCOCCI) [facility] Vaginal/Rectal 09/17/2020 12 :41 PM CDT 09/17/2020 1:39 PM CDT Narrative [facility] - 09/19/2020 6:38 AM CDT Testing performed by [facility] ([phone]). Amy Alvarez MD LAB MICROBIOLOGY - GENERAL ORDER ROZINA Final Result [facility] Department [place] [address] documented in this encounter Visit Diagnoses Diagnosis Poor growth affecting management of mother in third trimester, fetus 1 of multiple gestation Encounter for supervision of normal in first trimester, unspecified documented in this encounter Care Teams Banking Supervisor Relationship Specialty Start Date End Date No, Physician PCP - General 11/01/16 documented as of this encounter
--- OUTSIDE RECORDS SUMMARY | 2024-04-02 11:54 | XMS_ITS | Encounter Summary ---
Author Organization [facility] Healthcare Address [address] [place] [address] Care Team Providers Care Circulation Supervisor Name Role Phone No, Physician Primary Care Provider [phone] Encounter Details Date Type Department Care Team (Latest Contact Info) Description 10/03/2020 10:15 PM CDT - 10/03/2020 11:17 PM CDT Hospital Encounter [facility] [phone] Discharge Disposition: Discharge to home or self [...] of Binge Drinking Not on file 08/11 [place] Depression Scale Answer Date Recorded [place] Depression Scale Total 0 07/05/2020 The thought of harming myself has occurred to me . 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
--- OUTSIDE RECORDS SUMMARY | 2024-04-02 11:54 | XMS_ITS | Encounter Summary ---
Author Organization [facility] Healthcare Address [address] [place] [address] Care Team Providers Care Liver Trimmer Name Role Phone No, Physician Primary Care Provider [phone] Reason for Visit * Reason Comments Migraine Encounter Details Date Type Department Care Team (Late st Contact Info) Description 10/03/2020 7:12 PM CDT - 10/03/2020 10:29 PM CDT Emergency [facility] Emergency Department [address] [place] [address] Alaina Erazo MD [address] [place] [address] Preeclampsia in period (Primary Dx); cardiomyopathy Discharge Disposition: Discharge to a short term hospital for IP Social History Tobacco Use Types Packs/Day Years [...] of Binge Drinking Not on file 08/11 Roebling Depression Scale Answer Date Recorded Roebling Depression Scale Total 0 07/05/2020 The thought of harming myself has occurred to me . 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 Gender Identity Female 12/02/2022 6:55 PM CDT Sexual Orientation Straight 12/02/2022 6: 55 PM CDT documented as of this encounter Last Filed Vital Signs Vital Sign Reading Time Taken Comments Blood Pressure 144/72 10/03/2020 10:15 PM CDT Pulse 49 10/03/2020 10:15 PM CDT Temperature 36.2 ??C (97.1 ??F) 10/03/2020 7:03 PM CD T Respiratory Rate 25 10/03/2020 10:15 PM CDT Oxygen Saturation 91% 10/03/2020 10:15 PM CDT Inhaled Oxygen Concentration - - Weight 95.3 kg (210 lb) 10/03/2020 7:03 PM CDT Height 165.1 cm (5' 5 ) 10/03/2020 7:03 PM CDT Body Mass Index 34.95 10/03/2020 7:03 PM CDT documented in this encounter Discharge Diagnoses Diagnosis Unspecified pre-eclampsia, complicating the puerperium - UNSPECIFIED PRE- ECLAMPSIA, COMPLICATING THE PUERPERIUM 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 documented in this encounter ED Notes * Alaina Erazo MD - 10/03/2020 7:35 PM CDTAssociated Order(s): Critical Care Triage Chief Complaint: Chief Complaint Patient presents with ??? Migraine Portions of the record may have been created with voice recognition software. Occasional wrong-word or '[id number]' substitutions may have occurred due to the inherent limitations of voice recognition software. Read the chart carefully and recognize, using context, where substitutions have occurred. H&P: Brenda Shi is a 25 y.o. female 5 days status post after attempted induction of labor, patient did have an epidural, with uncomplicated course presents for headache. No history of hypertension. The patient did not have preeclampsia during her . No history of headaches. She has been sitting today for headache & noted in triage to be hypertensive. Headache started gradually over the last day. It is no severe. Aggravated by lights. No neck stiffness or fever. It is accompanied by nausea vomiting which started yesterday prior to headache. For the last 2 days she has also noticed increasing shortness of breath and bilateral worsening lower extremity edema. No rash. No right upper quadrant pain. No chest pain. ROS: At least 10 systems reviewed and otherwise negative except as in the HPI. Past Medical History: Diagnosis Date ??? Depression ??? Urinary tract infection Past Surgical History: Procedure Laterality Date ??? EAR SURGERY HOME MEDICATIONS : acetaminophen 500 mg capsule ibuprofen (ADVIL,MOTRIN) 600 mg tablet nicotine (NICODERM CQ) 7 mg oxyCODONE (ROXICODONE) 5 mg immediate release tablet PNV with [id number] 27 mg iron- 1 mg tablet polyethylene glycol (MIRALAX) 17 gram packet 28 mg iron- 800 mcg tablet sertraline (ZOLOFT) 50 mg tablet terconazole (TERAZOL 3) 80 mg vaginal suppository No Known Allergies Family history: Family history of ???cardiac issues?? Social history: Marijuana use Nursing Notes Reviewed. Physical Exam: ED Triage Vitals [10/03/20 1903] Temp Pulse Resp BP SpO2 36.2 ??C (97.1 ??F) 50 16 145/81 97 % Temp src Heart Rate Source Patient Position BP Location FiO2 (%) Temporal -- -- -- -- GENERAL APPEARANCE: Awake and alert. No acute distress. HEAD: Atraumatic. EYES: Sclera anicteric. EOMI. ENT: Tolerates saliva. NECK: Supple. Trachea midline. No meningismus. HEART: RRR. Radial pulses 2+. LUNGS: Respirations unlabored. CTAB. ABDOMEN: Soft. Non-tender. No guarding or rebound. No right upper quadrant pain. EXTREMITIES: No acute deformities. 1+ pitting edema bilaterally. SKIN: Warm and dry. No petechiae or purpura. NEUROLOGICAL: No gross facial drooping. Moves all 4 extremities spontaneously. Normal speech and mental status. No ataxia noted. Normal to somewhat difficult to elicit reflexes lower extremities bilaterally. PSYCHIATRIC: Normal mood. I have reviewed and interpreted all of the currently available lab results from this visit (if applicable): Labs Reviewed CBC WITH AUTO DIFFERENTIAL - Abnormal Result Value WBC 8.5 Hgb 10.4 (*) Hct 33.1 (*) Plt 289 MPV 10.8 RBC 3.88 (*) MCV 85.3 MCH 26.8 (*) MCHC 31.4 (*) RDW CV 13.6 RDW SD 42.0 NRBC abs 0.00 LACTATE DEHYDROGENASE - Abnormal Lactate dehydrogenase (LDH) 271 (*) URIC ACID - Abnormal Uric acid 7.1 (*) PRO B-TYPE NATRIURETIC PEPTIDE - Abnormal NT-proBNP 1,586 (*) TROPONIN T HIGH-SENSITIVITY SERIES (BASELINE, 2HR, 4HR, 6HR) - Abnormal Trop T hs 86 (*) URINALYSIS AND REFLEX TO MICROSCOPIC AND CULTURE COMPREHENSIVE METABOLIC PANEL Sodium 139 Potassium, pl 4.2 Chloride 104 CO2 23 Anion gap 13 BUN 14 Creatinine 0.94 Glucose 76 Calcium 9.2 Bilirubin, total 0.2 Protein, pl 6.5 Albumin 3.6 Alk phos 106 ALT 34 AST 35 DIFFERENTIAL AUTO Neutrophil abs 6.5 Imm gran abs 0.0 Lymphocyte abs 1.4 Monocyte abs 0.5 Eosinophil abs 0.0 Basophil abs 0.0 Neutrophil pct 76.7 Imm gran pct 0.2 Lymphocyte pct 17.0 Monocyte pct 5.6 Eosinophil pct 0.4 Basophil pct 0.1 EGFR GFR 85 TROPONIN T HIGH-SENSITIVITY 2-HOUR TROPONIN T HIGH-SENSITIVITY 4-HR TROPONIN T HIGH-SENSITIVITY 6-HOUR MAGNESIUM Radiographs (if obtained): Report Reviewed: XR Chest 1 Vw Portable Final Result EKG (if obtained): (All EKGs are interpreted by myself in the absence of a hook loader) Sinus bradycardia with a rate of 46, normal intervals, normal axis, normal ST segments, possible Q-waves V1 V2 V3 and inverted T-waves V1 V2 which may be normal variant. No STEMI. Impression: Sinus bradycardia. Abnormal EKG. No previous EKG for comparison. Critical Care Performed by: Alaina Erazo MD Authorized by: Alaina Erazo MD Critical care provider statement: As reflected in the history, physical exam, orders, notes, and/or MDM, I was personally present while the patient was critically ill and provided critical care services for approximately 45 minutes, excluding time involved in separately billable procedures. Critical care was necessary to treat or prevent imminent or life-threatening deterioration of the following condition(s): Chart review shows: Reviewed patient's discharge summary. At the time of discharge after , patient's blood pressure was 98/47 and heart rate was 75. ED course/MDM: Vitals: 10/03/20204410/03/20 2100 10/03/20211410/03/202129 BP: 123/58 133/82 135/75 136/74 Pulse: 52 (!) 49 55 54 Resp: 24 26 Temp: TempSrc: SpO2: 96% 94% 94% 93% Weight: Height: ED Course as of Oct 03 2158 Time: 10/04 1947 Comment: Spoke with [facility] at [facility]. Would be happy to accept patient for transfer. Will call back when more information is available. By: Alaina Erazo MD Time: 10/03 2128 Comment: Dr. Aldrich would like stat mag level. If mag level less than 8, then mag 1 g/hr. (target mag from 4.8-8.4) They will send transport team By: Alaina Erazo MD MDM: On arrival, patient's blood pressure x3 confirmed elevated blood pressure reading. Review of history and per patient's report no history of elevated blood pressure. New onset headache that is severe.Five days . Very concerning for preeclampsia. She never had blood pressure reading above 160 systolic or 110 diastolic so no indication for blood pressure control during ED stay here. She was given 2 g of magnesium up front for neuro protection. She was also having shortness ofbreath or extremity edema and vomiting. No chest pain. No pleuritic chest pain. She has not been hypoxic on the monitor. She is not tachycardic, she sexually bradycardic. Overall this looks more consistent with a cardiomyopathy. Pharyngeal is also intracranial hemorrhage, but headache was not sudden in onset, it has been gradual, no focal neuro findings or deficits, post epidural headache, not consistent with meningitis. I immediately consult at [facility] at [place], that is where she delivered, who initially said she did need necessarily be transferred but that they would accept her. Also consider PE but overall history and physical less consistent with this. I discussed the case with Dr. Rodas, Ob Gyne here, who said that she should be transfer to [place]. [place] agreeable. She will be transferred by their transport team. If make level is not above 8, will start magnesium trich for neuro protection. Clinical Impression: 1. Preeclampsia in period 2. cardiomyopathy Disposition: Transfer (Please note that portions of this note may have been completed with a voice recognition program. Client Associate errors occur. Please contact me for any clarification.) Alaina Erazo MD 10/03/202158 * Deyanira Louis RN - 10/03/2020 7:00 PM CDT Pt presents to the ED from home with c/o migraine, vomiting, and intermittent SOB. Pt reports having a 5 days. Migraine started around 1300. Pt reports 2 episodes of emesis. PT reports taking oxycodone at home with no relief. Pt denies vision issues. documented in this encounter Miscellaneous Notes * ED Triage Provider Note - Alejandra Gillis NP - 10/03/2020 7:11 PM CDT Head started approximately 2 hours [employer]. With SOB. Pt states pain is similar to previous migraines. Denies CP. Pt had a 5 days. Pt took oxycodone for pain with no relief. Pt delivered at [place]. Pt had a due to prolong decelerations requiring terbutaline. Lung sounds are clear with auscultation. Cosigned by Eduardo Fritz MD at 10/03/2020 10:24 PM CDT documented in this encounter Plan of Treatment Not on file documented as of this encounter Procedures Procedure Name Priority Date/Time Associated Diagnosis Comments URINALYSIS AND REFLEX TO MICROSCOPIC AND CULTURE Routine 10/03/2020 9:50 PM CDT URINALYSIS, MICROSCOPIC ONLY Routine 10/03/2020 9:50 PM CDT TROPONIN T HIGH-SENSITIVITY 2-HOUR Timed 10/03/2020 9:42 PM CDT MAGNESIUM STAT 10/03/2020 9:42 PM CDT LIPID PANEL Timed 10/03/2020 9:42 PM CDT XR CHEST 1 VIEW ED 10/03/2020 8:01 PM CDT MS CRITICAL CARE ILL/INJURED PATIENT INIT 30-74 MIN Routine 10/03/2020 7:35 PM CDT ECG 12-LEAD Routine 10/03/2020 7:33 PM CDT TROPONIN T HIGH-SENSITIVITY SERIES (BASELINE, 2HR, 4HR, 6HR) STAT 10/03/2020 7:12 PM CDT EGFR STAT 10/03/2020 7:12 PM CDT DIFFERENTIAL AUTO STAT 10/03/2020 7:1 2 PM CDT PRO B-TYPE NATRIURETIC PEPTIDE STAT 10/03/2020 7:12 PM CDT CBC WITH AUTO DIFFERENTIAL STAT 10/03/2020 7:12 PM CDT URIC ACID STAT 10/03/2020 7:12 PM CDT LACTATE DEHYDROGENASE STAT 10/03/2020 7:12 PM CDT COMPREHENSIVE METABOLIC PANEL STAT 10/03/2020 7:12 PM CDT documented in this encounter Results * (ABNORMAL) Urinalysis, microscopic only (10/03/2020 9:50 PM CDT) WBC, ur 0-5 0 - 5 /HPF [facility] ([place]) RBC, ur 6-10(A) 0 - 2 /HPF [facility] ([place]) Epithelial cells, squamous, ur 1-5 0 - 5 /HPF [facility] ([place]) Bacteria, ur Trace(A) [facility] ([place]) Mucous, ur Present(A) [facility] ([place]) Culture Reflex Comment Reflex conditions for urine culture (WBC >10) not met. [facility] ([place]) Urine, clean voided 10/03/2020 9:50 PM CDT 10/03/2020 9:52 PM CDT us Alejandra Gillis NP LAB URINE ORDERABLES Final Result [facility] ([place]) [address] [facility] [place] [address] * (ABNORMAL) Urinalysis reflex to microscopic and culture Urine, clean voided (10/03/2020 9:50 PM CDT) Color, ur Straw Yellow [facility] ([facility]) Clarity, ur Clear Clear [facility] ([facility]) Specific gravity, ur 1.009(L) 1.010 - 1.025 [facility] ([place]) pH, urine 6.5 [facility] ([place]) Protein, ur ql Negative Negative [facility] ([place]) Glucose, ur ql Negative Negative [facility] ([place]) Ketones, ur 2+(A) Negative [facility] ([place]) Bilirubin, ur Negative Negative [facility] ([place]) Blood, ur 3+(A) Negative [facility] ([place]) Urobilinogen, ur <2.0 <2.0 mg/dL [facility] ([place]) Nitrite, ur Negative Negative [facility] ([place]) Leukocyte esterase, ur Negative Negative [facility] ([place]) UA reflex comment Reflex to microscopic UA will be performed. [facility] ([facility]) Urine, clean voided 10/03/2020 9:50 PM CDT 10/03/2020 9:52 PM CDT Narrative [facility] ([place]) - 10/03/2020 10:00 PM CDT ?? Urine pH is affected by diet, medications, systemic acid-base disturbances, and renal tubular function. ??pH may affect urinary stone formation. ??For example, urine pH below 6.0 may help reduce the tendency for calcium phosphate stones and pH greater than 6.0 may reduce the tendency for uric acid stone formation. Source: [facility] [employer]. Last revised 04-23-2017 Alejandra Gillis NP LAB MICROBIOLOGY - GENERAL ORDERABLES Final Result [facility] ([place]) [address] [facility] Department of Laboratories [place], [place] [id number] * Lipid panel (10/03/2020 9:42 PM CDT) Cholesterol 169 30 - 199 mg/dL [facility] ([facility]) Comment: Interpretive Data Ages < or = 19 years ??Acceptable: ? <170 mg/dL ??Borderline high: ??170-199 mg/dL ??High: ? >or= 200 mg/dL Ages > or = 20 years ??Desirable: ?<200 mg/dL ??Borderline high: ??200-239 mg/dL ??High: ? >or= 240 mg/dL Literature References: 1. Expert Panel on Integrated Guidelines for Cardiovascular Health and Risk Reduction in Children and Adolescents. Pediatrics 2011;128:S213 2. NCEP Expert Panel. Circulation 2004;110:227 Current Interpretive Data was last revised on 2017. Triglycerides 113 <=149 mg/dL [facility] ([place]) Comment: Interpretive Data Ages < or = 9 years ??Acceptable: ? <75 mg/dL ??Borderline high: ??75-99 mg/dL ??High: ? >or= 100 mg/dL Ages 10 to 20 years ??Acceptable: ? <90 mg/dL ??Borderline high: ??90-129 mg/dL ??High: ? >or= 130 mg/dL Ages > or = 20 years ??Desirable: ?<150 mg/dL ??Borderline high: ??150-199 mg/dL ??High: ? 200-499 mg/dL ?Very high: ?? >or= 499 mg/dL Literature References: 1. Expert Panel on Integrated Guidelines for Cardiovascular Health and Risk Reduction in Children and Adolescents. Pediatrics 2011;128:S213 2. NCEP Expert Panel. Circulation 2004;110:227 Current Interpretive Data was last revised on 2017. HDL 76 >=40 mg/dL [facility] ([place]) Comment: Interpretive Data Ages < or = 19 years ??Acceptable: ? >45 mg/dL ??Borderline low: ?? 40-45 mg/dL ??Low: ? <40 mg/dL Ages > or = 20 years ??Desirable: ?>or= 60 mg/dL ??Low: ? <40 mg/dL Literature References: 1. Expert Panel on Integrated Guidelines for Cardiovascular Health and Risk Reduction in Children and Adolescents. Pediatrics 2011;128:S213 2. NCEP Expert Panel. Circulation 2004;110:227 Current Interpretive Data was last revised on 2017. LDL, calculated 70 <=129 mg/dL [facility] ([place]) Comment: Interpretive Data Ages < or = 19 years ??Acceptable: ? <110 mg/dL ??Borderline high: ??110-129 mg/dL ??High: ?>or= 130 mg/dL Ages > or = 20 years ??Optimal: ? <100 mg/dL ??Near optimal: ?100-129 mg/dL ??Borderline high: ?? 130-159 mg/dL ??High: ?>160 mg/dL Literature References: 1. Expert Panel on Integrated Guidelines for Cardiovascular Health and Risk Reduction in Children and Adolescents. Pediatrics 2011;128:S213 2. NCEP Expert Panel. Circulation 2004;110:227 Current Interpretive Data was last revised on 2017. Non-HDL Cholesterol 93 mg/dL [facility] ([place]) Comment: Interpretive Data Ages < or = 19 years ??Acceptable: ?<120 mg/dL ??Borderline high: ??120-144 mg/dL ??High: ?>145 mg/dL Ages > or = 20 years ??When triglycerides are >200 mg/dL, Non-HDL cholesterol is a secondary target of ? therapy with treatment goals that are 30 mg/dL greater than the LDL cholesterol target. ? Literature References: 1. Expert Panel on Integrated Guidelines for Cardiovascular Health and Risk Reduction in Children and Adolescents. Pediatrics 2011;128:S213 2. NCEP Expert Panel. Circulation 2004;110:227 Current Interpretive Data was last revised on 2017. Chol/HDL ratio 2 [facility] ([place]) Blood specimen (specimen) 10/03/2020 9:42 PM CDT 10/03/2020 9:59 PM CDT Narrative [facility] ([place]) - 10/03/2020 11:00 PM CDT This lipid panel was automatically ordered due to a significant change in Troponin. The dietary status of the patient at the collection time should be correlated with the lipid results. us Alaina Erazo MD LAB BLOOD ORDERABLES Fin al Result [facility] ([place]) [address] [facility] [place] [address] * Magnesium (10/03/2020 9:42 PM CDT) Magnesium 2.5 1.4 - 2.5 mg/dL [facility] ([place]) Blood specimen (specimen) 10/03/2020 9:42 PM CDT 10/03/2020 9:59 PM CDT Alaina Erazo MD LAB BLOOD ORDERABLES Fin al Result Performing Organization Address City/[facility]/ZIP Co de Phone Number [facility] ([place]) [address] [facility] [place] [address] * (ABNORMAL) Troponin T high-sensitivity 2-hour (10/03/2020 9:42 PM CDT) Trop T hs 125(H) <=14 ng/L [facility] ([place]) Comment: Interpretive Data For further hscTnT resources including the diagnostic algorithm and an aid in interpretation, copy and paste this link: https://nrl.testcatalog.org/show/hsTrop Current Interpretive Data last revised 2020. Trop T hs delta 39(C) ng/L [facility] ([place]) Comment:Critical Result call ed to and read back by Radha Torres (ER), DATE: 2020-10-03 22:35:45 BY: Anamika Brooks Trop T hs interp Significa nt(C) [facility] ([place]) Comment:Critical Result call ed to and read back by Radha Torres (ER), DATE: 2020-10-03 22:35:45 BY: Anamika Brooks Blood specimen (specimen) 10/03/2020 9:42 PM CDT 10/03/2020 9:59 PM CDT Alaina Erazo MD LAB BLOOD ORDERABLES Fin al Result Performing Organization Address City/[facility]/ZIP Co de Phone Number [facility] ([place]) [address] [facility] [place] [address] * XR Chest 1 Vw Portable (10/03/2020 8:01 PM CDT) Anatomical Region Laterality Modality Body, Chest N/A Computed Radiogr aphy 10/03/2020 8:06 PM CDT Narrative 10/03/2020 8:07 PM CDT EXAM DESCRIPTION: ?? XR CHEST 1 VIEW REASON FOR STUDY: ?? Pt presents to the ED from home with c/o migraine, vomiting, and intermittent SOB. Pt reports having a 5 days ago. Migraine started around 1300. Pt reports 2 episodes of emesis. PT reports taking oxycodone at home with no relief. Pt denies vision issues.Duration: Today TECHNIQUE: ?? Frontal radiographic view of the chest acquired. COMPARISON: ?? Most recently 08/05/2018. FINDINGS: LUNGS/PLEURA: ??No focal consolidation or pneumothorax. No pleural effusion. HEART/MEDIASTINUM: ??Heart size is probably within normal limits for technique. No pulmonary vascular congestion. HARDWARE/LINES/TUBES: ??None. BONES: ??No acute findings. OTHER: ??No other significant finding. IMPRESSION: ?? 1. ??No acute cardiopulmonary process is identified. THIS IS AN ELECTRONICALLY VERIFIED FINAL REPORT 10/03/2020 8:07 PM - Electronically signed by Jose Blackman D.O. : D: ??10/03/2020 8:07 PM T: ??10/03/2020 8:07 PM Report ID: [id number] Reading Location: ??[id number] Procedure Note Jose Blackman, DO - 10/03/2020 EXAM DESCRIPTION: XR CHEST 1 VIEW REASON FOR STUDY: Pt presents to the ED from home with c/o migraine, vomiting, and intermittent SOB. Pt reports having a 5 days ago. Migraine started around 1300. Pt reports 2 episodes of emesis. PT reports taking oxycodone at home with no relief. Pt denies vision issues.Duration: Today TECHNIQUE: Frontal radiographic view of the chest acquired. COMPARISON: Most recently 08/05/2018. FINDINGS: LUNGS/PLEURA: No focal consolidation or pneumothorax. No pleuraleffusion. HEART/MEDIASTINUM: Heart size is probably within normal limits fortechnique. No pulmonary vascular congestion. HARDWARE/LINES/TUBES: None. BONES: No acute findings. OTHER: No other significant finding. IMPRESSION: 1. No acute cardiopulmonary process is identified. THIS IS AN ELECTRONICALLY VERIFIED FINAL REPORT 10/03/2020 8:07 PM - Electronically signed by Jose Blackman D.O. : Report ID: [id number] Reading Location: [place] [address] Alaina Erazo MD IMG XR PROCEDURES Final Result * [facility] CRITICAL CARE ILL/INJURED PATIENT INIT 30-74 MIN (10/03/2020 7:35 PM CDT) Narrative Alaina Erazo MD - 10/03/2020 7:35 PM CDT Alaina rEazo MD ? 10/03/2020 ??9:59 PM Critical Care Performed by: Alaina Erazo MD Authorized by: Alaina Erazo MD Critical care provider statement: As reflected in the history, physical exam, orders, notes, and/or MDM, I was personally present while the patient was critically ill and provided critical care services for approximately 45 minutes, excluding time involved in separately billable procedures. ??Critical care was necessary to treat or prevent imminent or life-threatening deterioration of the following condition(s): Result [facility] Alaina Erazo MD IN CLINIC/BEDSIDE ORDERA BLES Final Result * ECG 12 lead (10/03/2020 7:33 PM CDT) 10/03/2020 7:33 PM CDT Narrative [facility] - 10/04/2020 10:23 AM CDT Vent Rate: 46 bpm RR Interval: 1294 msec MS Interval: 185 msec QRS Duration: 86 msec QT Interval: 455 msec QTC Interval: 413 msec P-R-T [place]: 8 - 70 - 58 degrees SINUS BRADYCARDIA WITH SINUS ARRHYTHMIA BORDERLINE ECG Electronically Signed By: Milan Martel MD Alaina Erazo MD ECG ORDERABLES Final Re sult [facility] * eGFR (10/03/2020 7:12 PM CDT) eGFR 85 mL/min/1.7 3 m2 [facility] ([place]) Comment: Interpretive Data Reference Interval Normal ?>/= 90 mL/min/1.73m2 Mildly decreased* ? 60 - 89 mL/min/1.73m2 Mildly to moderately decreased ?45 - 59 mL/min/1.73m2 Moderately to severely decreased ??30 - 44 mL/min/1.73m2 Severely decreased ?15 - 29 mL/min/1.73m2 Kidney Failure ?< 15 ??mL/min/1.73m2 *Relative to young adult level Estimated glomerular filtration rate is determined by the CKD-EPI equation recommended by the National Kidney Foundation (KDIGO 2012 Clinical Practice Guideline for the Evaluation and Management of Chronic Kidney Disease. Kidney Intnl Suppl Apr 2012;3:1). The CKD-EPI equation should not be used for patients with unstable renal function and has not been validated in children and those over 70. Current interpretive data was last reviewed 2020 Blood specimen (specimen) 10/03/2020 7:12 PM CDT 10/03/2020 7:15 PM CDT us Alejandra Gillis ART PROFESSOR LAB BLOOD ORDERABLES Final Result [facility] ([place]) 1 [facility] Department of Laboratories [place], [place] [id number] * (ABNORMAL) Troponin T high-sensitivity series (baseline, 2hr, 4hr, 6hr) (10/03/2020 7:12 PM CDT) Trop T hs 86(H) <=14 ng/L [facility] ([place]) Comment: Interpretive Data For further hscTnT resources including the diagnostic algorithm and an aid in interpretation, copy and paste this link: https://nrl.testcatalog.org/show/hsTrop Current Interpretive Data last revised 2020. Blood specimen (specimen) 10/03/2020 7:12 PM CDT 10/03/2020 7:39 PM CDT us Alaina Erazo MD LAB BLOOD ORDERABLES Fin al Result [facility] ([place]) 1 [facility] Department of Laboratories [place], [place] [id number] * (ABNORMAL) Pro B-type natriuretic peptide (10/03/2020 7:12 PM CDT) NT-proBNP 1,586(H) <=300 pg/mL [facility] ([place]) Comment: Interpretive Comments: A. Dyspnea in Acute [...] Interpretive Data Last Revised Date: 2017. Blood specimen (specimen) 10/03/2020 7:12 PM CDT 10/03/2020 7:39 PM CDT Alaina Erazo MD LAB BLOOD ORDERABLES Fin al Result [facility] ([place]) 1 [facility] Department [place] [address] * Differential, auto (10/03/2020 7:12 PM CDT) Neutrophil abs 6.5 1.7 - 6.5 K/cumm [facility] ([place]) Imm gran abs 0.0 0.0 - 0.1 K/cumm [facility] ([place]) Lymphocyte abs 1.4 0.8 - 3.3 K/cumm [facility] ([place]) Monocyte abs 0.5 0.2 - 0.8 K/cumm [facility] ([place]) Eosinophil abs 0.0 0.0 - 0.5 K/cumm [facility] ([place]) Basophil abs 0.0 0.0 - 0.1 K/cumm [facility] ([place]) Neutrophil pct 76.7 % [facility] ([place]) Comment: Interpretive Data Percent cell count reference ranges are not reported, since discordance with absolute values may lead to misinterpretation of CBC data. Current Interpretive Data was last revised on 2017. Imm gran pct 0.2 % [facility] ([place]) Comment: Interpretive Data Percent cell count reference ranges are not reported, since discordance with absolute values may lead to misinterpretation of CBC data. Current Interpretive Data was last revised on 2017. Lymphocyte pct 17.0 % [facility] ([place]) Comment: Interpretive Data Percent cell count reference ranges are not reported, since discordance with absolute values may lead to misinterpretation of CBC data. Current Interpretive Data was last revised on 2017. Monocyte pct 5.6 % [facility] ([place]) Comment: Interpretive Data Percent cell count reference ranges are not reported, since discordance with absolute values may lead to misinterpretation of CBC data. Current Interpretive Data was last revised on 2017. Eosinophil pct 0.4 % [facility] ([place]) Comment: Interpretive Data Percent cell count reference ranges are not reported, since discordance with absolute values may lead to misinterpretation of CBC data. Current Interpretive Data was last revised on 2017. Basophil pct 0.1 % [facility] ([place]) Comment: Interpretive Data Percent cell count reference ranges are not reported, since discordance with absolute values may lead to misinterpretation of CBC data. Current Interpretive Data was last revised on 2017. Blood specimen (specimen) 10/03/2020 7:12 PM CDT 10/03/2020 7:15 PM CDT Alejandra Gillis NP LAB BLOOD ORDERABLES Final Result [facility] ([place]) 1 [facility] Department [place] [address] * (ABNORMAL) Uric acid (10/03/2020 7:12 PM CDT) Uric acid 7.1(H) 2.5 - 7.0 mg/dL [facility] ([facility]) Blood specimen (specimen) 10/03/2020 7:12 PM CDT 10/03/2020 7:15 PM CDT Alejandra Gillis ART PROFESSOR LAB BLOOD ORDERABLES Final Result [facility] ([place]) 1 [facility] Department [place] [address] * (ABNORMAL) Lactate dehydrogenase (LD) (10/03/2020 7:12 PM CDT) Lactate dehydrogenase (LDH) 271(H) 100 - 250 Units/L [facility] ([facility]) Blood specimen (specimen) 10/03/2020 7:12 PM CDT 10/03/2020 7:15 PM CDT Alejandra Ramires Carlin ART PROFESSOR LAB BLOOD ORDERABLES Final Result Performing Organization Address City/[facility]/ZIP Co de Phone Number [facility] ([place]) 1 [facility] Department [place] [address] * Comprehensive metabolic panel (10/03/2020 7:12 PM CDT) Sodium 139 135 - 145 mmol/L [facility] ([place]) Potassium, pl 4.2 3.3 - 4.9 mmol/L [facility] ([place]) Chloride 104 97 - 110 mmol/L [facility] ([place]) CO2 23 22 - 32 mmol/L [facility] ([place]) Anion gap 13 2 - 15 mmol/L [facility] ([place]) BUN 14 8 - 25 mg/dL [facility] Creatinine 0.94 0.60 - 1.10 mg/dL [facility] ([place]) Glucose 76 70 - 199 mg/dL [facility] ([place]) Comment: Interpretive Data Fasting glucose >/= 126 [...] interpretive data was last revised 2017. Calcium 9.2 8.5 - 10.3 mg/dL [facility] ([place]) Bilirubin, total 0.2 0.1 - 1.2 mg/dL [facility] ([place]) Protein, pl 6.5 6.5 - 8.5 g/dL [facility] ([place]) Albumin 3.6 3.5 - 5.0 g/dL [facility] ([place]) Alk phos 106 40 - 130 Units/L [facility] ([place]) ALT 34 7 - 45 Units/L [facility] ([place]) AST 35 10 - 45 Units/L [facility] ([place]) Blood specimen (specimen) 10/03/2020 7:12 PM CDT 10/03/2020 7:15 PM CDT us Alejandra Gillis NP LAB BLOOD ORDERABLES Final Result [facility] ([place]) 1 [facility] Department [place] [address] * (ABNORMAL) CBC with auto differential (10/03/2020 7:12 PM CDT) WBC 8.5 3.8 - 9.9 K/cumm [facility] ([place]) Hgb 10.4(L) 11.9 - 15.5 g/dL [facility] ([place]) Hct 33.1(L) 35.6 - 45.5 % [facility] ([place]) Plt 289 150 - 400 K/cumm [facility] ([place]) MPV 10.8 9.1 - 12.3 fL [facility] ([place]) RBC 3.88(L) 3.90 - 5.20 M/cumm [facility] ([place]) MCV 85.3 81.3 - 96.4 fL [facility] ([place]) MCH 26.8(L) 27.1 - 33.3 pg [facility] ([place]) MCHC 31.4(L) 32.3 - 35.7 g/dL [facility] ([place]) RDW CV 13.6 11.1 - 14.9 % [facility] ([place]) RDW SD 42.0 35.7 - 48.1 fL [facility] ([place]) NRBC abs 0.00 0.00 - 0.01 K/cumm [facility] ([facility]) Blood specimen (specimen) 10/03/2020 7:12 PM CDT 10/03/2020 7:15 PM CDT Alejandra Gillis NP LAB BLOOD ORDERABLES Final Result [facility] ([facility]) 1 [facility] Department [place] [address] documented in this encounter Visit Diagnoses Diagnosis 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, 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 Notify ., Indications: hypermagnesemiaIndications:h ypermagnesemia ketorolac (TORADOL) 15 mg/mL injection 15 mg 15 mg, intravenous, Once, On Thu10/03/20 at 1934, For 1 dose, For Adult IV push, administer over 15 seconds, Indications: PainIndications:Pain Given 10/03/2020 7:38 PM CDT 15 mg magnesium sulfate 2 g/50 mL in water (premix) 2 g 2 g, intravenous, Administer over 60 Minutes, Once, On Thu10/03/20 at 1925, For 1 dose New Bag 10/03/2020 7:37 PM CDT 2 g magnesium sulfate 40 g/1,000 mL in water infusion (premix) 1 g/hr (25 mL/hr), intravenous, Continuous, Starting on Thu10/03/20 at 2148 New Bag 10/03/2020 10:22 PM CDT 1 g/hr 25 mL/hr prochlorperazine (COMPAZINE) injection 10 mg 10 mg, intravenous, Administer over 2 Minutes, Once, On Thu10/03/20 at 1934, For 1 dose, For IV push, administer at a rate of 5 mg/minute Given 10/03/2020 7:48 PM CDT 10 mg documented in this encounter Active and Recently Administered Medications Times are shown in CDT. Scheduled Medication Order 10/01/2020 10/02/2020 10/03/2020 acetaminophen (TYLENOL) tablet 1,000 mg (COMPLETED) 1,000 mg, oral, Once, On Thu10/03/20 at 1952, For 1 dose 2014 (Given - Provid er: April Vitale RN) ketorolac (TORADOL) 15 mg/mL injection 15 mg (COMPLETED) 15 mg, intravenous, Once, On Thu10/03/20 at 1934, For 1 dose, For Adult IV push, administer over 15 seconds, Indications: Pain 1937 (Given - Provid er: April Vitale RN) magnesium sulfate 2 g/50 mL in water (premix) 2 g (COMPLETED) 2 g, intravenous, Administer over 60 Minutes, Once, On Thu10/03/20 at 1925, For 1 dose 1936 (New Bag - Prov ider: Apirl Vitale RN)2048 (Stopped - Provider: April Vitale RN) prochlorperazine (COMPAZINE) injection 10 mg (COMPLETED) 10 mg, intravenous, Administer over 2 Minutes, Once, On Thu10/03/20 at 1934, For 1 dose, For IV push, administer at a rate of 5 mg/minute 1947 (Given - Provid er: April Vitale RN) Continuous Medication Order 10/01/2020 10/02/2020 10/03/2020 magnesium sulfate 40 g/1,000 mL in water infusion (premix) 1 g/hr (25 mL/hr), intravenous, Continuous, Starting on Thu10/03/20 at 2148 2159 (Hold - Provide r: April Vitale RN - Reason: Order parameters not met)2221 (New Bag - Provider: April Vitale, RN)222 (Continued after Discharge - Provider: April Vitale, RN) PRN Medication Order 10/01/2020 10/02/2020 10/03/2020 calcium gluconate 100 mg/mL (10%) injection 1 g 1 g, intravenous, Once as needed, magnesium toxicity, Starting on Thu10/03/20 at 1916, For 1 dose, Administer over 10 minutes for magnesium toxicity which may include respiratory rate 12 or less/minute, decreased level of consciousness, absence of reflexes. Notify MD., Indications: hypermagnesemia documented in this encounter Orders Medications Ordered That Alex ht Not Have Been Administered Count Last Ordered Date First Ordered Date calcium gluconate 100 mg/mL (10%) injection 1 g 1 10/03/2020 hydrALAZINE (APRESOLINE) injection 10 mg 1 10/03/2020 labetaloL (NORMODYNE,TRANDAT E) injection 20 mg 1 10/03/2020 labetaloL (NORMODYNE,TRANDAT E) injection 40 mg 1 10/03/2020 labetaloL (NORMODYNE,TRANDAT E) injection 80 mg 1 10/03/2020 magnesium sulfate 2 g/50 mL in water (premix) 2 g 1 10/03/2020 magnesium sulfate bolus from bag 4 g 1 09/12 Nursing Count Last Ordered Date First Orde red Date CARDIO RESPIRATORY MONITORING 1 10/03/2020 STRAIGHT CATH 1 10/03/2020 IV Count Last Ordered Date First Orde red Date SALINE LOCK IV 1 10/03/2020 documented in this encounter Care Teams Liver Trimmer Relationship Specialty Start Date End Date No, Physician PCP - General 11/01/16 documented as of this encounter
--- OUTSIDE RECORDS SUMMARY | 2024-04-02 11:54 | XMS_ITS | Encounter Summary ---
Author Organization [facility] Healthcare Address [address] [place] [address] Care Team Providers Care Validation Leader Name Role Phone No, Physician Primary Care Provider [phone] Reason for Visit * Reason Comments Routine Visit Encounter Details Date Type Department Care Team (Late st Contact Info) Description 09/17/2020 10:15 AM CDT Office Visit Obstetrics and Gynecology Clinic [facility] ([place], [place]) Outpatient Health 3rd Floor [address] [place] [address] Giuliana Crisostomo MD [facility] [phone] [place] [address] Amy Alvarez MD [address] [place] [address] [address] [place] [address] [place], [place] [id number] , unspecified gestational age (Primary Dx); Poor growth affecting management of mother in third trimester, fetus 1 of multiple gestation; Maternal varicella, non-immune; Depression during in third trimester; Encounter for supervision of normal in first trimester, unspecified ; Family Hx Congenital Heart Disease Social History Tobacco Use Types Packs/Day Years [...] of Binge Drinking Not on file 08/11 [place] Depression Scale Answer Date Recorded [place] Depression Scale Total 0 07/05/2020 The thought of harming myself has occurred to me . 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[employer] Gender Identity Female 12/02/2022 6:55 PM CDT Sexual Orientation Straight 12/02/2022 6: 55 PM CDT documented as of this encounter Last Filed Vital Signs Vital Sign Reading Time Taken Comments Blood Pressure 128/68 09/17/2020 11:09 AM CDT Pulse 80 09/17/2020 11:09 AM CDT Temperature 36.2 ??C (97.2 ??F) 09/17/2020 11:09 AM C DT Respiratory Rate - - Oxygen Saturation 99% 09/17/2020 11:09 AM CDT Inhaled Oxygen Concentration - - Weight 95.8 kg (211 lb 1.6 oz) 09/17/2020 11:09 AM CDT Height - - Body Mass Index 36.24 08/20/2020 12:18 PM CDT documented in this encounter Patient Instructions * Patient Instructions* Amy Alvarez MD - 09/17/2020 10:15 AM CDT Contact us Office hours: Thursday-Thursday 8:30 AM-4:30 PM Phone number: [phone] Daytime: Call us if you have questions [...] medical problem, you can call us at [phone]. Please wait until the clinic is open for non-urgent needs as this emergency line cannot help with appointments, paperwork or prescriptions. If you have an emergency and cannot wait, please call 911 or go to the [facility] Emergency room. If you are having a problem with your or are in labor you can go to the [facility] (check in near elevator on first floor) 1 [facility], [address]th [place] [address]. documented in this encounter Ordered Prescriptions Prescription Sig Dispense Quantity Refills Last Filled Start Date End Date fluconazole (DIFLUCAN) 150 mg tablet Take 1 tablet (150 mg total) by mouth once for 1 dose 1 tablet 09/17/2020 09/17/2020 documented in this encounter Progress Notes * Amy Alvarez MD - 09/17/2020 10:15 AM CDT OB RETURN VISIT 09/17/2020 Subjective: Steve Shi is a 25 y.o. at 38w4d who presents for her return OB visit. She reports feeling like she might have a yeast infection - itching and discharge. She otherwise feels well. She has been considering induction and wants to wait until she reaches her due date if possible. movement: yes VB?: no LOF?: no Ctxns? no Objective: Vitals: 09/17/20 1109 BP: 128/68 Pulse: 80 Temp: 97.2 ??F TempSrc: Temporal SpO2: 99% Weight: 211 lb 1.6 oz (95.8 kg) Gen: No acute distress. Abdomen: Soft, nontender, gravid. FH 38 cm SVE: 50/-3, soft Extremities: Warm, well perfused. No lower extremity edema/erythema/tenderness. Wet mount c/w yeast Reactive NST prior to visit. Assessment/Plan: 25 y.o. at 38w4d. Problem List Circulatory Family Hx Congenital Heart Disease Overview IOB visit: Pt w/ sister w/ [...] gtt at 24-28wks: 81 [x] Flu Shot (Sep-Dec): s/p flu shot 03/06/20 [x] Tdap (27-36wks): administered 07/05 [x] Rhogam (if Rh neg): NA 3rd Trimester: [x] CBC Hgb 11.6, plt 233/HIV neg/RPR NR/T&S Rh pos/Ab neg [] GBS: collected 09/17 [x] GC/CT/trich: neg Counseling: [x] Method of delivery: anticipate , IOL scheduled 09/27 @ 0600 [] Method of contraception: undecided, previously provided w/ bedsider website [x] Method of feeding: breast [] Software Development Advisor: [] Car seat: [] PP depression [] COVID testing Relevant Orders Group B streptococcal culture Vaginal/Rectal Depression Overview Reports hx of depression, never [...] varicella, non-immune Overview - for varivax RTC 1 week Patient seen and discussed with Dr. Mora. Cosigned by Vianey Mora MD at 09/17/2020 5:26 PM CDT Associated attestation - Vianey Mora MD - 09/17/2020 5:26 PM CDT I have seen and examined the patient. I agree with the findings and plan of care as documented in the resident/fellow's note. documented in this encounter Plan of Treatment Not on file documented as of this encounter Procedures Procedure Name Priority Date/Time Associated Diagnosis Comments POCT URINALYSIS DIPSTICK Routine 09/17/2020 11:10 AM CDT , unspecified gestational age documented in this encounter Results * (ABNORMAL) [...] allergic patients, please contact the laboratory at [phone] to request susceptibility testing * ??* ??* ??* ??* ??* ??* ??* ??* ??* ??* ??* ??* ??* ??* ??* ??* ??* ??* ??* (.) [facility] Organism STREPTOCOCCUS AGALACTIAE (GROUP B STREPTOCOCCI) [facility] Vaginal/Rectal 09/17/2020 12 :41 PM CDT 09/17/2020 1:39 PM CDT Narrative [facility] - 09/19/2020 6:38 AM CDT Testing performed by [facility] ([phone]). Amy Alvarez MD LAB MICROBIOLOGY - GENERAL ORDER ROZINA Final Result [facility] [place] [address] * POCT urinalysis dipstick (09/17/2020 11:10 AM CDT) Glucose, ur, POC Negative Negative mg/dL Bilirubin, ur, POC Negative Negative, Small, Moderate, Large Ketones, ur, POC Negative Negative Blood, ur, POC Negative Negative Protein, ur, POC Negative Negative Nitrite, ur, POC Negative Negative Leukocytes, ur, POC Negative Negative Lot Number [id number] Urine 09/17/2020 11:1 0 AM CDT Amy Alvarez MD POINT OF CARE TEST ORDERABLES Fi nal Result documented in this encounter Visit Diagnoses Diagnosis Poor growth affecting management of mother in third trimester, fetus 1 of multiple gestation Encounter for supervision of normal in first trimester, unspecified , unspecified gestational age- Primary Poor growth affecting management of mother in third trimester, fetus 1 of multiple gestation Maternal varicella, non-immune Supervision of other normal Depression during in third trimester Encounter for supervision of normal in first trimester, unspecified Family Hx Congenital Heart Disease Unspecified congenital anomaly of heart documented in this encounter Care Teams Validation Leader Relationship Specialty Start Date End Date No, Physician PCP - General 11/01/16 documented as of this encounter
--- OUTSIDE RECORDS SUMMARY | 2024-04-02 11:54 | XMS_ITS | Encounter Summary ---
Author Organization [facility] Medical Group Address [address] [facility] [facility] [address] [place] [address] Care Team Providers Care Move Coordinator Name Role Phone No, Physician Primary Care Provider [phone] Encounter Details Date Type Department Care Team (Late st Contact Info) Description 09/24/2020 Orders Only [facility] Testing Site - [address] [place] [id number] Frank Alvarez MD [address] [place] [id number] Pre-operative laboratory examination (Primary Dx) Social [...] of Binge Drinking Not on file 08/11 [place] Depression Scale Answer Date Recorded [place] Depression Scale Total 0 07/05/2020 The thought of harming myself has occurred to me . 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 Comment: ?? Order Specific Questions Question Answer Comment Testing types: Pre-procedure ?? Date of Px/chemo/treatment/placement/transfer 09/27/2020 ?? Testing site patient will be sent to: [facility] ?? Date testing requested: 09/25/2020 ?? Testing: COVID/FLU ?? Is this the first COVID-19 test for this patient? Does the patient currently work in a healthcare facility with direct patient contact? No ?? Is the patient a resident of a congregate care or living setting? No ?? Is the patient ? Yes ?? Please select the performing region: [facility] documented in this encounter Plan of Treatment Not on file documented as of this encounter Visit Diagnoses Diagnosis Pre-operative laboratory examination- Primary Pre-procedural laboratory examination documented in this encounter Care Teams Move Coordinator Relationship Specialty Start Date End Date No, Physician PCP - General 11/01/16 documented as of this encounter
--- OUTSIDE RECORDS SUMMARY | 2024-04-02 11:54 | XMS_ITS | Encounter Summary ---
Author Organization [facility] Healthcare Address [address] [place] [address] Care Team Providers Care Clinical Documentation Spec Name Role Phone No, Physician Primary Care Provider [phone] Reason for Visit * Reason Onset Date Comments Outgoing Call 09/26/2020 IOL instr uctions Encounter Details Date Type Department Care Team (Late st Contact Info) Description 09/26/[address] [phone] Yeimy Haney RN Outgoing Call (IOL instructions) [...] of Binge Drinking Not on file 08/11 [place] Depression Scale Answer Date Recorded [place] Depression Scale Total 0 07/05/2020 The thought of harming myself has occurred to me . 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 Discussed IOL instructions at length and answered questions. Verbalizes understanding of instructions. Plans to get COVID test today. * Telephone Encounter - Yeimy Haney RN - 09/26/2020 8:01 AM CDT Called patient to review IOL instructions. She was busy and could not talk. Asked if I would call back in 20 min. Stated I would call her back at that time. documented in this encounter Plan of Treatment Not on file documented as of this encounter Visit Diagnoses Not on filedocumented in this encounter Care Teams Clinical Documentation Spec Relationship Specialty Start Date End Date No, Physician PCP - General 11/01/16 documented as of this encounter
--- OUTSIDE RECORDS SUMMARY | 2024-04-02 11:54 | XMS_ITS | Encounter Summary ---
Author Organization [facility] Healthcare Address [address] [place] [address] Care Team Providers Care Windows Application Developer Name Role Phone No, Physician Primary Care Provider [phone] Encounter Details Date Type Department Care Team (Latest Contact Info) Description 09/27/2020 8:40 AM CDT - 09/30/2020 1:43 PM CDT Hospital Encounter [address] [id number] Zackary Chen MD [address] [facility] [id number] [place] [address] Delmy Awad MD [address] [facility] [id number] [place], [place] [id number] Encounter for induction of labor (Primary Dx) [...] of Binge Drinking Not on file 08/11 [place] Depression Scale Answer Date Recorded [place] Depression Scale Total 0 07/05/2020 The thought of harming myself has occurred to me . 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 Gender Identity Female 12/02/2022 6:55 PM CDT Sexual Orientation Straight 12/02/2022 6: 55 PM CDT documented as of this encounter Last Filed Vital Signs Vital Sign Reading Time Taken Comments Blood Pressure 106/62 09/30/2020 7:22 AM CDT Pulse 70 09/30/2020 7:22 AM CDT Temperature 37 ??C (98.6 ??F) 09/30/2020 7:22 AM CDT Respiratory Rate 16 09/30/2020 7:22 AM CDT Oxygen Saturation 100% 09/30/2020 7:22 AM CDT Inhaled Oxygen Concentration - - Weight 95.3 kg (210 lb) 09/27/2020 10:55 AM CDT Height 162.6 cm (5' 4 ) 09/27/2020 10:55 AM CDT Body Mass Index 36.05 09/27/2020 10:55 AM CDT documented in this encounter Discharge Diagnoses Diagnosis Abnormality in heart rate and rhythm complicating labor and delivery - ABNORMALITY IN HEART RATE AND RHYTHM COMPLICATING LABOR AND DELIVERY Drug use complicating childbirth - DRUG USE COMPLICATING CHILDBIRTH Contact with and (suspected) exposure to covid-19 - CONTACT WITH AND (SUSPECTED) EXPOSURE TO COVID-19 Streptococcus B carrier state complicating childbirth - STREPTOCOCCUS B CARRIER STATE COMPLICATING CHILDBIRTH Single live - SINGLE LIVE 40 weeks gestation of - 40 WEEKS GESTATION OF Other mental disorders complicating childbirth - OTHER MENTAL DISORDERS COMPLICATING CHILDBIRTH Major depressive disorder, single episode, unspecified - MAJOR DEPRESSIVE DISORDER, SINGLE EPISODE, UNSPECIFIED Cannabis use, unspecified, uncomplicated - CANNABIS USE, UNSPECIFIED, UNCOMPLICATED Maternal care for other known or suspected poor growth, third trimester, not applicable or unspecified - MATERNAL CARE FOR OTHER KNOWN OR SUSPECTED POOR GROWTH, THIRD TRIMESTER, NOT APPLICABLE OR UNS documented in this encounter Discharge Summaries * Dominga Lopez MD - 09/30/2020 7:17 AM CDT Inpatient Discharge Summary BRIEF OVERVIEW Admitting Provider: Zackary Chen MD Discharge Provider: Zackary Chen MD Primary Care Physician at Discharge: No, Physician [phone] Admission Date: 09/27/2020 Discharge Date: 09/30/2020 Admission Location: [facility] Problems/Diagnoses: Active Problems: No Active Problems: There are no active problems currently on the Problem List. Please update the Problem List and refresh. Resolved Problems: No resolved hospital problems. DETAILS OF HOSPITAL STAY Presenting Problem/History of Present Illness: Brenda Shi is a 25 y.o. female at 40w0d gestation, dated by 1 trimester ultrasound ?? Patient reports feeling well, no complaints. Excited! ?? Her is complicated by #Fm Hx CHD: sister with TOF. S/p normal Echo #depression: no current meds #resolved IUGR: resolved x2. Last growth 09/13 EFW 2817g(16%) #VZV NI: varivax Pp #MJ use Hospital Course: Brenda Shi is a 25 y.o. female who presented to L&D for induction of labor at 40w1d weeks gestation, dated by 1st trimester Ultrasound with Estimated Date of Delivery: 09/27/20. Her was complicated by depression, IUGR, and marijuana use. Her induction was started with low dose pitocin given occasional decelerations. She had multiple prolonged decelerations early in her labor course. Amniotomy was performed and an IUPC was placed. She made change to 3cm dilation butcontinued to have prolonged decelerations requiring terbutaline. Recommendation was made to proceedwith delivery via primary section and the patient was agreeable. She underwent a primary Low Transverse Section via [place]. Delivery was uncomplicated. See operative report for full details. The patient was transferred to . Her course was uncomplicated. Prior to discharge, her pain was well controlled, she was voiding, passing gas, ambulating, and meeting all postoperative milestones. # ID: Afebrile. No signs/symptoms of infection. # Heme: EBL 1100mL. Preop hgb 11.6, POD1 hgb 10.4. No symptoms acute blood loss anemia. # CV/Pulm: Vital signs stable, within normal limits # GI/: Tolerating PO. Voiding spontaneously. # Pain: Controlled with above regimen. # DVT prophylaxis: The patient has the following MAJOR risk factors none and the following MINOR risk factors BMI 30-39 and delivery. enoxaparin 40 mg daily ordered for VTE prophylaxis. #Mother/Baby: The patient has chosen to breastfeed her and is undecided on contraception. Active Issues Requiring Follow-up: PP care Test Results Pending at Discharge: None Operative Procedures Performed: Procedure(s): SECTION Other Procedures: none Pertinent Test Results: none Discharge Details Physical Exam at Discharge: Discharge Condition: good Pulse: 75 Resp: 16 BP: 98/47 (RN notified) Temp: 97.5 ??F Weight: 210 lb (95.3 kg) Pertinent Exam Findings at Discharge: see day of discharge progress note Discharge Disposition: Code Status at Discharge: full Discharge Instructions: See avs Discharge Medications: Current Medications TAKE these medications acetaminophen 500 mg capsule Take 2 capsules (1,000 mg total) by mouth every 6 (six) hours For: pain ibuprofen 600 mg tablet Take 1 tablet (600 mg total) by mouth every 6 (six) hours For: cramps Commonly known as: ADVIL,MOTRIN nicotine [address] 1 patch on the skin daily Commonly known as: NICODERM CQ PNV with [id number] 27 mg iron- 1 mg tablet Take [...] Commonly known as: TERAZOL 3 Outpatient Follow-Up: 4-6 wks Cosigned by Audra Heredia MD at 09/30/2020 9:23 AM CDT documented in this encounter Discharge Instructions * Discharge Instructions* Vivi Lamb, SAMARA - 09/29/2020 4:20 PM CDT Discharge Instructions - Section In order to minimize social contact during [...] first call our OB communication center at [phone]. * If you have SEVERE illness including [...] have burning, pain or difficulty urinating. * Your incision has redness, drainage, bad odor, or if the incision separates. * You have nausea, vomiting or increased abdominal pain. * You have redness or pain in your calves, legs or inner thighs. * You have red, swollen painful breasts. * You have other questions or concerns. * You have a headache, difficulty breathing, [...] return. Rest as often as possible. * Lift nothing heavier than 10 pounds for 2 weeks. * No driving for 1-2 weeks or while taking narcotics. * If you are not , milk will come in between the 3rd and 4th day . Wear tight support bra and use ice packs to relieve discomfort. Care Instructions: * You may shower or shampoo your hair. You may take a full bath about 2 weeks after delivery. * Keep incision clean and dry. Every day, gently wash your incision with mild soap and warm water and pat dry. * If you have steri strips, you may still shower. The steri strips may fall of on their own, but ifthey do not, remove them after 5 days. * If you have sha, please make an appointment with your doctor to have them removed in 10 days. Contraception: Undecided Feeding: : * Follow unrestricted . Feed your baby based on baby??s hunger cues (orat least 8-12 feedings per 24 hours). Do NOT supplement unless instructed by Skilled Laborer. * Call your Skilled Laborer if your baby has poor eating habits [...] visits. We are trying to keep you you safe and minimize social contact due to COVID19 precautions. If you do not hear from your primary OB to set up your telephone or in person visit, please call your primary OB to set up a telephone or in person visit. Thank you forunderstanding and remember to wash your hands and avoid anyone with fevers or cough. Stay at home as much as possible and practice social distancing. If you yourself develop fever >100.4F, a new cough, or shortness of breath please call our centralized OB communication center at [phone]. Donot come to the hospital or clinic until you speak with a provider. Contact Information for your primary OB: * Primary OB DOCTOR - in 2 WEEKS Call your primary OB doctor to schedule an appointment in 2 weeks. No future appointments. Your medication list ASK your doctor about these medications Instructions Last Dose Given Next Dose Due doxylamine 25 mg tablet Commonly known as: UNISOM nicotine 7 mg Commonly known as: NICODERM CQ Place 1 patch on the skin daily ondansetron ODT 4 mg disintegrating tablet Commonly known as: ZOFRAN-ODT Take 1 tablet (4 mg total) by mouth every 8 (eight) hours as needed for nausea or vomiting 28 mg iron- 800 mcg tablet Generic drug: vitamin ferrous fumarate-folic pyridoxine 25 mg tablet Commonly known as: VITAMIN B6 sertraline 50 mg tablet Commonly known as: ZOLOFT Take 1 tablet (50 mg total) by mouth daily terconazole 80 mg vaginal suppository Commonly known as: TERAZOL 3 documented in this encounter Medications at Time of Discharge acetaminophen 500 mg capsuleIndication s:Pain Take 2 capsules (1,000 mg total) by mouth every 6 (six) hours 120 tablet 3 09/30/2020 3 azelaic acid 15 % gel APPLY TO FACE TWICE A DAY 08/01/2020 4 ibuprofen (ADVIL,MOTRIN) 600 mg tabletIndications :Cramps Take [...] pain 20 tablet 09/30/2020 1 PNV with ceihjvz-sssn-NR 27 mg iron- 1 mg tabletIndications :Vitamin [...] Refills Last Filled Start Date End Date oxyCODONE (ROXICODONE) 5 mg immediate release tabletIndications :Pain Take 1 tablet (5 mg total) by mouth every 4 (four) hours as needed for pain 20 tablet 09/30/2020 1 polyethylene glycol (MIRALAX) 17 gram packetIndications :constipation Take 1 packet (17 g total) by mouth daily as needed for constipation 30 packet 3 09/30/2020 3 PNV with kfwrqym-upsk-FQ 27 mg iron- 1 mg tabletIndications :Vitamin Deficiency Prevention Take 1 tablet by mouth daily 60 tablet 3 09/30/2020 3 ibuprofen (ADVIL,MOTRIN) 600 mg tabletIndications :Cramps Take 1 tablet (600 mg total) by mouth every 6 (six) hours 120 tablet 3 09/30/2020 3 acetaminophen 500 mg capsuleIndication s:Pain Take 2 capsules (1,000 mg total) by mouth every 6 (six) hours 120 tablet 3 09/30/2020 3 documented in this encounter Discharge Disposition Disposition Code Departure Means Destination Discharge to home or self care documented in this encounter Progress Notes * Nivia Badillo MD - 09/30/2020 6:23 AM CDT Post Progress Note Delivery Date/Time: 09/28/2020 at 4:40 AM Delivery method: , Low Transverse [251] Obstetrical/Medical Problems: Medical Conditions Diagnosis ??? Encounter for supervision of normal in first trimester ??? Family Hx Congenital Heart Disease ??? Tobacco use ??? Marijuana use/Hx ecstasy use ??? Depression ??? Resolved IUGR ??? Maternal varicella, non-immune ??? Encounter for induction of labor Subjective Flatus: Yes Pain: Well controlled Diet: Tolerating regular diet. Ambulating independently Voiding spontaneously Lochia less than menses Doing well this morning without complaints. Scheduled Medications acetaminophen, 1,000 mg, oral, Q6H docusate sodium, 100 mg, oral, BID enoxaparin, 40 mg, subcutaneous, Daily-2100 ibuprofen, 600 mg, oral, Q6H viatmin, 1 tablet, oral, Daily senna, 1 tablet, oral, BID sodium chloride 0.9%, 0.5-20 mL, intra-catheter, Q8H KASIE PRN Medications hydrocortisone ??? wdpwcek-yqhpv-vyzsjqr ??? ondansetron ODT OR ondansetron ??? oxyCODONE ??? oxyCODONE ??? polyethylene glycol ??? prochlorperazine ??? simethicone ??? sodium chloride 0.9% ??? varicella zoster Vitals: Temp: [36.4 ??C (97.5 ??F)-36.8 ??C (98.2 ??F)] 36.4 ??C (97.5 ??F) Pulse: [58-90] 75 BP: (98-111)/(47-65) 98/47 Resp: [16] 16 SpO2: [98 %-100 %] 100 % No intake or output data in the 24 hours ending 09/30/20 0651 Physical Exam General: No acute distress. Cardiovascular: Regular rate and rhythm. Lungs: Non-labored. Clear to auscultation bilaterally. Abdomen: Soft, non-distended, non-tender to palpation. Fundus below umbilicus. Incision c/d/i Extremities: Warm and well-perfused. Neuro: Globally intact Recent Labs Lab Units 09/29/20 0443 09/27/20 0849 WBC K/cumm 10.7* 7.5 HEMOGLOBIN g/dL 10.4* 11.6* HEMATOCRIT % 32.3* 36.2 PLATELETS K/cumm 189 214 Labs: Lab Results Component Value Date ABORH A Positive 09/27/2020 IDCOOMB Negative 09/27/2020 [id number] Nonreactive 08/16/2020 LABRPR Nonreactive 09/27/2020 GBS Positive 09/17/2020 VZVIGG Nonreactive 06/25/2020 Assessment and Plan 25 y.o. POD#2 s/p pLTCS for NRFS. Problem Encounter for Induction of Labor # ID: Afebrile. No signs/symptoms of infection. #COVID-19: Negative #VZV NI: Varivax ordered. # Heme: EBL 900 mL. No symptoms acute blood loss anemia. Pre op Hgb 11.6->10.4. # CV/Pulm: Vital signs stable, within normal limits. # GI/: Tolerating PO. Voiding spontaneously. # Pain: Controlled with above regimen. # Psych: #Depression: On no meds. Previously took Zoloft, declines restarting inpatient or at discharge. # Post DVT prophylaxis: The patient has the following MAJOR risk factors none and the following MINOR risk factors BMI 30-39 and delivery. enoxaparin 40 mg daily ordered for VTE prophylaxis. # MOC: Declined # MOF: # COVID Vaccination Status: Declined # Disposition: Follow up task not sent. Desires discharge home today. Meeting all postoperative milestones. Nivia Badillo MD 09/30/20 I have reviewed and agree with the above documentation. Amy Alvarez MD, MPHS PGY-4, Obstetrics & Gynecology Cosigned by Audra Heredia MD at 09/30/2020 9:23 AM CDT Associated attestation - Audra Heredia MD - 09/30/2020 9:23 AM CDT I have seen and examined the patient on 09/30/20. I agree with the findings and plan of care as documented in the resident's/fellow's note.. * Margarette Argueta, TESTS SUPERINTENDENT - 09/29/2020 3:08 PM CDT Problem Brenda Shi 1995 was admitted on??09/28/2020 for Labor and Delivery. Identified problem and Social Work referral for??history of depression/anxiety and history of marijuana use. ?? Intervention [place] baby girl was born??09/28/20??via delivery.??This is MOBs first child.? Throughout??the??current visit, MOB noted to be sitting upright, attentive and engaged, providing adequate eye contact??and discussion. No concerns for SI/HI noted. ??MOB reports no significant depressive or symptoms during her , states that she still experiences some anxiety but it is managed by using coping skills. MOB has found praying to be very helpful. JENIFER completed an initial visit with PN on 05/04/2020 and is agreeable to utilizing PN in the future should she experience an increase in anxiety/depression symptoms. MOB states that she was prescribed Zoloft by her doctor at the [facility] OB clinic but discontinued the use as she did not like how it made her feel. ?? MOB reports Marijuana use early in but has not used MJ since the first trimester.?? Both MOB and UDS results are negative.? MJ cessation discussed via medical team.?? SW explained that 's meconium results are pending and discussed the involvement of [facility] should those results come back positive.? Social Work provided reassurance and support. ? Social Work,??MOB, and maternal grandmother??discussed the signs and symptoms of both Baby Blues and Depression. Social Work discussed and normalized increase in emotions and the importance of self-care. Social Work reviewed the importance of sleep and acceptance of help from others if available. Resources for counseling discussed and contact encouraged if needed. MOB engaged in conversation and demonstrates knowledge.??MOB continues to be??open to support from outside resources, andstates that she plans to seek out physical and emotional support from her family and friends, as needed.??MOB accepting of resource packet given to her??at this visit. ?? Goal/Plan SW has reviewed and provided information/education on Baby Blues/PPD, as well as community supportsand agencies. MOB is understanding and agreeable to utilizing these resources as needed.? Safe Discharge Plan Mother bonding well with . Preparations have been made at home for and social supports are available. Follow-up medical care has been arranged. Family is connected to resources and will utilize services as needed. There are no concerns for a safe discharge for with family. Social Work will follow for support and additional needs should they arise.? Margarette ROQUE, KHOA Social Work ?? * Min, Rosemary Mcconnell MD - 09/29/2020 7:40 AM CDT Post Progress Note Delivery Date/Time: 09/28/2020 at 4:40 AM Delivery method: , Low Transverse [251] Obstetrical/Medical Problems: Medical Conditions Diagnosis ??? Encounter for supervision of normal in first trimester ??? Family Hx Congenital Heart Disease ??? Tobacco use ??? Marijuana use/Hx ecstasy use ??? Depression ??? Resolved IUGR ??? Maternal varicella, non-immune ??? Encounter for induction of labor Subjective Flatus: Yes Pain: Well controlled Diet: Tolerating regular diet. Ambulating independently Voiding spontaneously Lochia equal to menses Scheduled Medications acetaminophen, 1,000 mg, oral, Q6H acetaminophen, 1,000 mg, oral, Q6H KASIE docusate sodium, 100 mg, oral, BID ibuprofen, 600 mg, oral, Q6H ketorolac, 15 mg, intravenous, Q6H KASIE viatmin, 1 tablet, oral, Daily senna, 1 tablet, oral, BID sodium chloride 0.9%, 0.5-20 mL, intra-catheter, Q8H KASIE PRN Medications diphenhydrAMINE ??? hydrocortisone ??? HYDROmorphone ??? [id number]-oqfcl-xrxdmng ??? nalbuphine ??? naloxone ??? ondansetron ODT OR ondansetron ??? ondansetron ??? oxyCODONE ??? oxyCODONE ??? oxyCODONE ??? polyethylene glycol ??? prochlorperazine ??? simethicone ??? sodium chloride 0.9% ??? varicella zoster Vitals: Temp: [98 ??F-98.4 ??F] 98.2 ??F Pulse: [57-82] 60 BP: (101-135)/(54-60) 101/57 Resp: [14-18] 18 SpO2: [98 %-100 %] 99 % Intake/Output Summary (Last 24 hours) at 09/29/2020 0743 Last data filed at 09/28/2020 2130 Gross per 24 hour Intake 220 ml Output 1030 ml Net -810 ml Physical Exam General: No acute distress. Cardiovascular: Regular rate and rhythm. Lungs: Non-labored. Clear to auscultation bilaterally. Abdomen: Soft, non-distended, non-tender to palpation. Fundus below umbilicus. Bandage c/d/i Extremities: Warm and well-perfused. Neuro: Globally intact Recent Labs Lab Units 09/29/20 0443 09/27/20 0849 WBC K/cumm 10.7* 7.5 HEMOGLOBIN g/dL 10.4* 11.6* HEMATOCRIT % 32.3* 36.2 PLATELETS K/cumm 189 214 Labs: Lab Results Component Value Date ABORH A Positive 09/27/2020 IDCOOMB Negative 09/27/2020 [id number] Nonreactive 08/16/2020 LABRPR Nonreactive 09/27/2020 GBS Positive 09/17/2020 VZVIGG Nonreactive 06/25/2020 Assessment and Plan 25 y.o. POD#1 s/p pLTCS for NRFS Problem Encounter for Induction of Labor # ID: Afebrile. No signs/symptoms of infection. #COVID-19: Negative #VZV NI: varivax Pp # Heme: EBL 900 mL. No symptoms acute blood loss anemia. # CV/Pulm: Vital signs stable, within normal limits. # GI/: Tolerating PO. Voiding spontaneously. # Pain: Controlled with above regimen. # Psych: #Depression: On no meds # Post DVT prophylaxis: The patient has the following MAJOR risk factors none and the following MINOR risk factors BMI 30-39 and delivery. enoxaparin 40 mg daily ordered for VTE prophylaxis. # MOC: Declined # MOF: # COVID Vaccination Status: Declined # Disposition: Follow up task not sent. Continue routine postoperative care. Rosemary Rodriguez MD 09/29/20 I have reviewed and agree with the above documentation. Sheree Mcneal MD Cosigned by Zackary Chen MD at 09/29/2020 11:19 AM CDT Associated attestation - Zackary Chen MD - 09/29/2020 11:19 AM CDT I have seen and examined the patient on 09/29/20. I agree with the findings and plan of care as documented in the resident's/fellow's note. POD 1 - routine care, transition to PO pain medications Depression - continue to observe for symptoms of worsening/PP depression * Dominga Lopez MD - 09/28/2020 2:45 PM CDT R1 Update UOP marginal to low. Patient was nauseated earlier today, with low PO intake. Nausea has resolved with zofran/compazine, however, patient sleepy with low PO intake. Will give bolus LR now for low UOP. Consider VT if UOP improves. Dominga Lopez MD * Sanam Carrizales MD - 09/28/2020 2:20 AM CDT Assessed patient now sleeping comfortably, off of pitocin. Discussed with patient that she has had protracted induction in setting of intolerance to labor. She has now had two long OT breaks due to 7 minute decelerations in setting of OT up to 2u. Discussed option to continue with third attempt at OT versus proceed with delivery due tofetal intolerance to labor. After consideration, pt would like to rest, will plan for repeat SVE and anticipate proceeding withCS. Discussed reassuring FHT currently and patient feels comfortable with plan of care. Discussed with Dr. Awad. Sanam Carrizales MD ANALYTICAL CLERK Resident, PGY4 [facility] * Champ Waldrop MD - 09/27/2020 11:54 PM CDT OB Progress Note MD to bedside due to deceleration to the 90s (baseline was 120s). Decel continued despite patient repositioning. Pitocin paused. Patient was placed in hands and knees. terb was given x1. Approximately one minute after terb, heart tones improved to the 110s. Total deceleration lasted for7 mins. Cervical check /-[address] Awad updated and was present. Champ Waldrop MD, MPH PGY-3, Obstetrics & Gynecology * Sanam Carrizales MD - 09/27/2020 11:09 PM CDT FHT now cat I. S/p epidural. Will restart LDOT. Sanam Carrizales MD ANALYTICAL CLERK Resident, PGY4 [facility] * Lakisha Butts MD - 09/27/2020 8:34 PM CDT R2 OB Update To bedside for 4 min decel to 90s. Repositioned to hands and knees with improvement. SVE /75/-2. AROM@2030, clear fluid. IUPC placed to better titrate OT. Recommend patient d/w anesthesia about getting epidural given NRFS over her IOL and need for possible CS under GETA if she has a terminal bradycardic event. Patient amenable to talking to anesthesia at this time. D/w Dr. Ritesh Butts MD * Kenzie Lord MD - 09/27/2020 4:54 PM CDT R4 ANALYTICAL CLERK Progress Note To patient room for deceleration. Patient's OT at 12, SVE 2.5/75/-2. BP normotensive. Patient's uterus soft, not everardo. Patient placed on hands and knees. Deceleration lasted 7 minutes with a ita to 50s, FHR visualized on BSUS in the 50s. Discussed with patient recommendation for Level 1 CS and she is agreeable. Patient rolled back and once in the OR, FHR noted to be back at baseline. SVE unchanged at 2.5/75/-2. Given that FHR now back at baseline, patient monitored in the OR for 15 minutes and no further decelerations occurred. Patient moved back to her labor room for continuedIOL. I asked the patient if she desires an epidural and she doesn't think she wants one. I discussed that given her fetus has had multiple prolonged decelerations today, and she is remote from delivery, she may end up requiring a delivery, and if she doesn't have an epidural, she would need general anesthesia/intubation. The patient is understanding, and given this, is considering an epidural. All questions answered. The patient's family who is present was updated. Kenzie Lord MD * Dominga Lopez MD - 09/27/2020 12:41 PM CDT Labor Progress Note 25 y.o. at 40w0d OT now at 4, cont to titrate per protocol. BP 132/90 Pulse 94 Temp 98.1 ??F (Oral) Resp 16 Ht 162.6 cm (5' 4 ) Wt 210 lb (95.3 kg) LMP 12/27/2019 SpO2 99% BMI 36.05 kg/m?? Temp: [98.1 ??F] Pulse: [71-94] Resp: [16] BP: (119-132)/(74-90) Weight: [210 lb (95.3 kg)] Monitoring: Baseline: 120 bpm, Variability: Moderate, Accelerations: Present and Decelerations: None Uterine Activity: Irregular contractions Physical Exam General: NAD, mood appropriate Cardiovascular: Regular rate and rhythm Pulmonary: non-labored Abdomen: Gravid, non-tender Extremities: Warm and well perfused. Cervix: 2.5 /75 /-2 Assessment and Plan 25 y.o. at 40w0d Problem Encounter for Induction of Labor 1. Elective Induction of Labor: OT now at 4, cont to titrate per protocol. 2. Fm Hx CHD: sister with TOF. S/p normal Echo 3. depression: no current meds 4. resolved IUGR: resolved x2. Last growth 09/13 EFW 2817g(16%) 5. VZV NI: varivax Pp 6. FWB: Continuous monitoring. tracing category I 7. ID: HIV negative. GBS positive, will start PCN. Membrane Status: intact. 8. Indications for UDS: history of illicit drug use in last 12 months (MJ), pending. Verbal consentobtained for UDS: Yes 9. MOF: Plans to breastfeed. 10. MOC: Undecided on contraception. 11. Pain management: Desires epidural prn. 12. Post DVT prophylaxis: The patient has the following MAJOR risk factors none and the following MINOR risk factors BMI 30-39. SCDs will be ordered for VTE prophylaxis . 13. COVID Test Status: Preadmission testing negative Dominga Lopez MD 09/28/2111:44 PM * Dominga Lopez MD - 09/27/2020 9:50 AM CDT R1 Update Attempted to place CC around 1015. 60cc placed in uterine balloon. And prior to placing miso, patient started having a deceleration to 80s. Patient was placed on side without improvement. CC was removed. Patient placed on hands and knees. Was not palpated firm. Terb not given. FHR improved to baseline. Cervix rechecked and found to be now 2.5. Plan to start OT s/p reassuring monitoring. Dominga Lopez MD documented in this encounter H&P Notes * Dominga Lopez MD - 09/27/2020 6:00 AM CDT Obstetrics H&P Chief Complaint: rrIOL Estimated Date of Delivery: 09/27/20 Provider[facility] HPI: Brenda Shi is a 25 y.o. female at 40w0d gestation, dated by 1 trimester ultrasound Patient reports feeling well, no complaints. Excited! Her is complicated by #Fm Hx CHD: sister with TOF. S/p normal Echo #depression: no current meds #resolved IUGR: resolved x2. Last growth 09/13 EFW 2817g(16%) #VZV NI: varivax Pp #MJ use Patient Denies: [x] Contractions [x] Shortness of Breath [x] Nausea/Vomitting [x] Vaginal Bleeding [x] Headache [x] Abdominal Pain [x] Leaking of Fluid [x] Visual changes [x] Decreased Movement OB History Para Term AB Living 1 0 0 0 0 0 SAB TAB Ectopic Multiple Live Births 0 0 0 0 0 # Outcome Date GA Lbr Smith/2nd Weight Sex Delivery Anes PTL Lv 1 Current FI[employer] SAL[employer] EX[employer]IVE History: Patient's last menstrual period was 12/27/2019. History of Abnormal Pap: None STD History: none Past Medical History: Diagnosis Date ??? Depression [...] Smokeless tobacco: Never Used ??? Tobacco comment: working on quiting Substance and Sexual Activity ??? Alcohol use: [...] No No Known Allergies HOME MEDICATIONS : doxylamine (UNISOM) 25 mg tablet nicotine (NICODERM CQ) 7 mg ondansetron ODT (ZOFRAN-ODT) 4 mg disintegrating tablet 28 mg iron- 800 mcg tablet pyridoxine (VITAMIN B6) 25 mg tablet sertraline (ZOLOFT) 50 mg tablet terconazole (TERAZOL 3) 80 mg vaginal suppository Review of Sys: Negative except per HPI Vitals: Pulse: [71-84] 71 BP: (119)/(74) 119/74 Physical Exam: General: NAD, mood appropriate Cardiovascular: Regular rate and rhythm Pulmonary: Normal respiratory effort Abdomen: Gravid, non-tender Extremities: Warm and well perfused Speculum Exam: deferred Cervix: 1.5 /75 /-2 Monitoring: Baseline: 120 bpm, Variability: Moderate, Accelerations: Present and Decelerations: None Uterine Activity: No contractions seen on toco Interpretation: Reactive Ultrasound: Vertex presentation Posterior placenta Previa: No Estimated Weight: 2817 g by US, date performed 09/13 Labs: Lab Results Component Value Date ABORH A Positive 08/16/2020 IDCOOMB Negative 08/16/2020 [id number] Nonreactive 08/16/2020 LABRPR Nonreactive 08/16/2020 GBS Positive 09/17/2020 VZVIGG Nonreactive 06/25/2020 Assessment and Plan Brenda Shi is a 25 y.o. female at 40w0d who is being admitted for rrIOL. Problem Encounter for Induction of Labor 1. Elective Induction of Labor: Admit to L&D. Consents signed and placed in chart. Send CBC/T&S. Induction of labor with miso/CC. 2. Fm Hx CHD: sister with TOF. S/p normal Echo 3. depression: no current meds 4. resolved IUGR: resolved x2. Last growth 09/13 EFW 2817g(16%) 5. VZV NI: varivax Pp 6. FWB: Continuous monitoring. Reactive NST 7. ID: HIV negative. GBS positive, will start PCN. Membrane Status: intact. 8. Indications for UDS: history of illicit drug use in last 12 months (MJ). Verbal consent obtainedfor UDS: Yes 9. MOF: Plans to breastfeed. 10. MOC: Undecided on contraception. 11. Pain management: Desires epidural prn. 12. Post DVT prophylaxis: The patient has the following MAJOR risk factors none and the following MINOR risk factors BMI 30-39. SCDs will be ordered for VTE prophylaxis . 13. COVID Test Status: Test sent on admission Plan discussed with Dr. Macy Guaman. Dominga Lopez MD 09/27/20 Cosigned by Zackary Chen MD at 09/27/2020 10:25 AM CDT Associated attestation - Zackary Chen MD - 09/27/2020 10:25 AM CDT I have seen and examined the patient on 09/27/20. I agree with the findings and plan of care as documented in the resident's/fellow's note. documented in this encounter Miscellaneous Notes * Note - Rose Pennington RN - 09/30/2020 1:40 PM CDT Mother is pumping, putting baby to breast, and supplementing with formula. She is concerned that she isn't producing enough milk. Discussed normal behavior and intake amounts. Encouraged regular feeding and hand expression to increase milk supply. Support and encouragement provided. Encouraged to call for latch assistance as needed. Discussed obtaining pump for home use. Instructed to call with needs or questions after discharge and visit virtual support group as needed. Support and encouragement provided. * Plan of Care - Marisa Brownlee RN - 09/30/2020 9:25 AM CDT Problem: Activity: Goal: Will verbalize the importance [...] Progressing Goals: Clinical Goals for the Shift: Preparing for discharge Summary: Preparing for discharge. * Plan of Care - Dede Cope RN - 09/29/2020 11:46 PM CDT Problem: Activity: Goal: Will verbalize the importance [...] Progressing Goals: Clinical Goals for the Shift: pain management; VSS; rest Summary: Plan of care was discussed with patient and all questions were answered. Patient is being well managed and patient is progressing towards care plan goals. * Plan of Care - Vesta El - 09/29/2020 9:47 AM CDT Problem: Activity: Goal: Will verbalize the importance [...] Goals: Clinical Goals for the Shift: VSS, Rest, Pain control Summary: Mom's pain has improved since yesterday. to see mom and baby today. Will continue to monitor and provide cares. * Plan of Care - Dede Cope RN - 09/29/2020 5:13 AM CDT Problem: Activity: Goal: Will verbalize the importance [...] Progressing Goals: Clinical Goals for the Shift: pain management; VSS; rest Summary: Plan of care was discussed with patient and all questions were answered. Pain is being well managed and patient is progressing towards care plan goals. * Note - Amy Green RN - 09/28/2020 3:30 PM CDT Discussed normal behavior/cluster feedings. Encouraged to call for assistance as needed. * Hospital Course - Nivia Badillo MD - 09/28/2020 11:27 AM CDT Brenda Shi is a 25 y.o. female who presented to L&D for induction of labor at 40w1d weeks gestation, dated by 1st trimester Ultrasound with Estimated Date of Delivery: 09/27/20. Her was complicated by depression, IUGR, and marijuana use. Her induction was started with low dose pitocin given occasional decelerations. She had multiple prolonged decelerations early in her labor course. Amniotomy was performed and an IUPC was placed. She made change to 3cm dilation butcontinued to have prolonged decelerations requiring terbutaline. Recommendation was made to proceedwith delivery via primary section and the patient was agreeable. She underwent a primary Low Transverse Section via Pfannensteil. Delivery was uncomplicated. See operative report for full details. The patient was transferred to . Her course was uncomplicated. Prior to discharge, her pain was well controlled, she was voiding, passing gas, ambulating, and meeting all postoperative milestones. # ID: Afebrile. No signs/symptoms of infection. # Heme: EBL 1100mL. Preop hgb 11.6, POD1 hgb 10.4. No symptoms acute blood loss anemia. # CV/Pulm: Vital signs stable, within normal limits # GI/: Tolerating PO. Voiding spontaneously. # Pain: Controlled with above regimen. # DVT prophylaxis: The patient has the following MAJOR risk factors none and the following MINOR risk factors BMI 30-39 and delivery. enoxaparin 40 mg daily ordered for VTE prophylaxis. #Mother/Baby: The patient has chosen to breastfeed her infant and declined contraception s/p counseling. * Plan of Care - Cinthya Alfaro RN - 09/28/2020 7:12 AM CDT Goals: Delivery of viable Summary: Problem: Lack of Knowledge: Goal: Verbalization of [...] from uterine contractions will improve Outcome: Progressing * Significant Event - Sanam Carrizales MD - 09/28/2020 4:26 AM CDT Pt with additional spontaneous deceleration which resolved with repositioning and a dose of terbutaline after several minutes. Occurred after 3 contractions in 10 minute period. Pt desires to proceedwith primary CS due to intolerance to labor in the first stage of labor. Patient assessed by Dr. Butts. Plan of care discussed with Dr. Awad. Sanam Carrizales MD ANALYTICAL CLERK Resident, PGY4 [facility] in [place]/[facility] * Op Note - Lakisha Butts MD - 09/28/2020 4:05 AM CDT [facility] Section Delivery Note Patient's Name: Brenda Shi : 1995 Attending Physician: Delmy Awad MD [facility] Primary Diagnosis: Intrauterine at 40w1d, delivered Non-reassuring status Depression Resolved IUGR Obstetrical Medical Risk Factors: Medical Conditions Diagnosis ??? Encounter for supervision of normal in first trimester ??? Family Hx Congenital Heart Disease ??? Tobacco use ??? Marijuana use/Hx ecstasy use ??? Depression ??? Resolved IUGR ??? Maternal varicella, non-immune ??? Encounter for induction of labor Delivery method: , Low Transverse [251] Anesthesia: CSE Membranes: rupture, clear. Time ruptured prior to delivery: >8 hours Antibiotics: Ancef and Azithromycin Delivery Date/Time: 09/28/2020 at 4:40 AM Placenta Delivery Date & Time: 09/28/2020 4:42 AM Cord: 3 vessels [3] Delayed cord clamping: Yes, 60 seconds. Infant: living 7 lb 6.2 oz (3.35 kg) female APGARs: 8 / 9 Disposition: Nursery Operative Note Surgical Team: Surgeon(s) and Role: * Delmy Awad MD - Primary * Lakisha Butts MD - Resident - Assisting Preoperative Diagnosis: Intrauterine at 40w1d Non-reassuring status Postoperative Diagnosis: Same Anesthesia: CSE Name of Operation: Primary Low Transverse Section via Pfannensteil Indication for Procedure: Brenda Shi is a 25 y.o. female at 40w1d weeks gestation, dated by 1st trimester Ultrasound with Estimated Date of Delivery: 09/27/20 who presented to L&D for induction of labor. Her induction was started with low dose pitocin given occasional decelerations. She had multiple prolonged decelerations early in her labor course. Amniotomy was performed and an IUPC was placed. She madechange to 3cm dilation but continued to have prolonged decelerations requiring terbutaline. Recommendation was made to proceed with delivery via primary section and the patient was agreeable. Operative Findings: Viable female , in Vertex presentation APGARS were 8 / 9 at 1 and 5 minutes respectively. Pediatrics was present at delivery. Placenta with central 3 vessel cord. Normal uterus, bilateral tubesand ovaries. Description of Procedure: After obtaining the appropriate operative consents, the patient was takento the operating room, where previously placed epidural was dosed and confirmed to provide adequateanesthesia. She was given 2 grams of Ancef/500mg Azithromycin. She was then prepared and draped in the normal sterile fashion in the supine position with a leftward tilt. A Pfannenstiel skin incisionwas then made with the scalpel and carried through to the underlying layer of fascia. The fascia was incised in the midline and the incision extended laterally bluntly and the underlying rectus muscles were dissected off bluntly. The rectus muscles were then in the midline, and the peritoneum was identified and entered bluntly. The peritoneal incision was then extended superiorly and inferiorly with good visualization of the bladder. The bladder blade was then inserted and the vesicouterine peritoneum identified. A low transverse hysterotomy was made with the scalpel. The uterine incision was then extended bluntly. The bladder blade was removed and the 's head was brought to the level of the hysterotomythen delivered atraumatically. The cord was clamped and cut and the was handed off to the waiting pediatricians. Cord gases were sent. The placenta was then delivered using external massage. The uterus was exteriorized and cleared of all clots and debris. The uterine incision was repaired with 0-vicryl in a running, locked fashion. A second imbricating layer of 0-monocryl suture was used to obtain excellent hemostasis. Good hemostasis was noted after hysterotomy closure. The uterus was returned to the abdomen and the gutters were cleared of all clots and debris. The hysterotomy was examined in situ and hemostasis was satisfactory. The ventral aspect of the fascia wasinspected and no fascial defects were found. The rectus muscles were inspected and found to be intact. The fascia was reapproximated with looped 0 PDS in a running fashion. The subcutaneous tissue was then irrigated and the bovie was used to obtain excellent hemostasis. The subcutaneous tissue was closed with 3-0 vicryl. The skin was closed with 3-0 monocryl in a subcuticular fashion. The patient tolerated the procedure well and was taken to the recovery room in stable condition. Complications: None Estimated Blood Loss: 200 mL Intraoperative Fluids: 1200 mL crystalloid Urine Output: 200 mL clear yellow urine at the end of the procedure Sponge/Instrument/Needle Counts: The sponge, lap and needle counts were correct x3. Specimens Sent To Pathology: Placenta The attending, Delmy Awad MD, was present for the guerra portions of the procedure. Cosigned by Delmy Aawd MD at 10/01/2020 8:05 AM CDT Associated attestation - Delmy Awad MD - 10/01/2020 8:05 AM CDT I was present for the entire procedure. * Assessment & Plan Note - Claritza Flowers - 09/28/2020 3:03 AM CDTAssociated Problem(s): Vaginal delivery (Deleted) 1. Elective Induction of Labor: Admitted to L&D. Consents signed and placed in chart. Induced labor with miso and OT. Baby delivered via CS. 2. Fm Hx CHD: sister with TOF. S/p normal Echo 3. depression: no current meds 4. resolved IUGR: resolved x2. Last growth 09/13 EFW 2817g(16%) 5. VZV NI: varivax Pp 6. FWB: Continuous monitoring. tracing category I 7. ID: HIV negative. GBS positive, will start PCN. Membrane Status: AROM @2030 on 09/27 8. Indications for UDS: history of illicit drug use in last 12 months (MJ). Verbal consent obtainedfor UDS: Yes 9. MOF: Plans to breastfeed. 10. MOC: Undecided on contraception. 11. Pain management: Epidural placed @2157 on 09/27. 12. Post DVT prophylaxis: The patient has the following MAJOR risk factors none and the following MINOR risk factors BMI 30-39. SCDs will be ordered for VTE prophylaxis . 13. COVID Test Status: Preadmission testing negative * Plan of Care - Nicole Gomez RN - 09/27/2020 7:31 PM CDT Problem: Lack of Knowledge: Goal: [...] uterine contractions will improve Outcome: Progressing Goals: Summary: manage pain, maintain vitals wdl, progress toward vaginal * Plan of Care - Mag Davis RN - 09/27/2020 8:53 AM CDT Goals: Summary: Problem: Lack of Knowledge: Goal: Verbalization of [...] from uterine contractions will improve Outcome: Progressing documented in this encounter Plan of Treatment Not on file documented as of this encounter Procedures Procedure Name Priority Date/Time Associated Diagnosis Comments CBC WITHOUT DIFFERENTIAL Routine 09/29/2020 4:43 AM CDT SURGICAL PATHOLOGY Routine 09/28/2020 4: 42 AM CDT SECTION 09/28/2020 4:05 AM CDT US OB LIMITED IP Routine 09/27/2020 2:28 PM CDT Encounter for induction of labor DRUG SCREEN, URINE Routine 09/27/2020 11 :19 AM CDT TYPE AND SCREEN Timed 09/27/2020 9:29 AM CDT RPR Timed 09/27/2020 8:49 AM CDT CBC WITHOUT DIFFERENTIAL STAT 09/27/2020 8:49 AM CDT GROUP B STREPTOCOCCUS CULTURE Routine 09/17/2020 12:45 PM CDT documented in this encounter Results * (ABNORMAL) CBC without differential (09/29/2020 4:43 AM CDT) WBC 10.7(H) 3.8 - 9.9 K/cumm [facility] Hgb 10.4(L) 11.9 - 15.5 g/dL [facility] Hct 32.3(L) 35.6 - 45.5 % [facility] Plt 189 150 - 400 K/cumm [facility] MPV 11.4 9.1 - 12.3 fL [facility] RBC 3.81(L) 3.90 - 5.20 M/cumm [facility] MCV 84.8 81.3 - 96.4 fL [facility] MCH 27.3 27.1 - 33.3 pg [facility] MCHC 32.2(L) 32.3 - 35.7 g/dL [facility] RDW CV 14.3 11.1 - 14.9 % [facility] RDW SD 44.3 35.7 - 48.1 fL [facility] NRBC abs 0.00 0.00 - 0.01 K/cumm [facility] Blood specimen (specimen) 09/29/2020 4:43 AM CDT 09/29/2020 5:00 AM CDT us Sharman Maurissa Ritesh MD LAB BLOOD ORDERABLES Final Result CERNER [facility] Department [place] [address] * Surgical pathology (09/28/2020 4:42 AM CDT) Placenta 09/28/2020 4:42 AM CDT 09/28/2020 8:55 AM CDT Narrative 10/04/2020 1:11 PM CDT EPIC results best viewed via link to PDF [facility] Lakisha Crook [facility] [place] [address] SURGICAL PATHOLOGY REPORT FINAL Patient Name: ?? BRENDA SHI Gender: ??F : ??1995 (Age: 25) Address: ??[address] [place] [id number] Hospital #: ??[id number] Taken:09/28/2020 Received:09/28/2020 Reported: 10/04/2020 Patient Type: [facility] Inpatient ?? Service: Obstetrics Location: [facility] ??[id number] Physician(s): ??aSnam Carrizales M.D. Diagnosis: A. Placenta, section ? - 462 grams, small for gestational age, term chau placenta - Delayed villus maturity - Trophoblastic giant cells at basal plate suggestive of superficial implantation ? - Three-vessel umbilical cord with no histopathologic abnormality kxs/10/03/2020 07:57 By this signature, I attest that the above diagnosis is based upon my personal examination of the slides(and/or other material indicated in the diagnosis). Roxy Arce M.D. Report Electronically Reviewed and Signed Out By ??Roxy Arce M.D. 10/04/2020 13:11:58 Microscopic Description and Comment: Microscopic examination substantiates the above cited diagnosis. Debbi Townsend MD History: The patient is a 25-year-old female at 40 weeks gestation with complicated by depression and resolved intrauterine growth restriction. Procedure: section; intraoperative findings: Viable female with Apgars of 8/9 Specimen(s) Received: A: Placenta, 40.1 weeks Gross Description: Received unfixed, labeled with the patient's name and medical record number. It consists of a single 18.3 x 16.5 x 2.5 cm placental disc with attached cord and membranes. The 10.0 cm in length by 1.3 cm in diameter three vessel umbilical cord inserts eccentrically 2.0 cm from the nearest disc margin. No knots, hemorrhage, or other lesions are identified. A detached portion of unremarkable umbilical cord is also present in the container measuring 13. 0 cm in length by 1.4 cm in diameter. The membranes are translucent and attached to the disc margin, and have a site of rupture 2.0 cm from the nearest disc margin. It weighs 462 grams (trimmed). The surface is blue-rossi with for 1.0 cm firm white blocks, grossly consistent with subchorionic fibrin deposition. ??The vessels arborize in the normal pattern and are unremarkable. ??The maternal surface is complete. Sections show unremarkable maroon the left placental parenchyma with no obvious gross lesions. Labeled A1 - umbilical cord and membranes; A2-A4 -normal placenta. ??Jar 3. kxs/10/01/2020 13:36 Gross Resident:Debbi Townsend MD By this signature, I attest that the above diagnosis is based upon my personal examination of the slides(and/or other material). Addenda/Procedures The performance characteristics of some immunohistochemical stains, fluorescence in-situ hybridization tests and immunophenotyping by flow cytometry cited in this report (if any) were determined by the Surgical Pathology Department at [facility] as part of an ongoing quality assurance/r&d lab technician program and in compliance with federally [...] determined by the Surgical Pathology Department of [facility]. ??It has not been cleared or approved by the U. S. Food and Drug Administration. IMAGES AND SCANNED DOCUMENTS, IF INCLUDED, ONLY VIEWABLE IN PDF VERSION OF REPORT us Notinfile Unknown LAB PATHOLOGY ORDERABLES Final Result * US Ob Limited (09/27/2020 2:28 PM CDT) Anatomical Region Laterality Modality Abdomen N/A Ultrasound Narrative 09/27/2020 2:28 PM CDT Vertex presentation on bedside ultrasound. Images reviewed. Zackary Chen MD us Zackary Chen MD IMG OB US PROCEDURES Final Result * Drug screen, urine (09/27/2020 11:19 AM CDT) Drug screen, ur Negative EUNICE BAEZ Comment: Interpretive Data This test detects the presence of approximately 50 substances using LC-tandem mass spectrometry. For a list of specific compounds and detection limits refer to the Lab Test Guide Book. While this technique is highly specific, false-positive and false-negative findings may occur in very rare circumstances. Contact the [employer] iron carrier ([phone] #2) for consultation if needed. This test was developed and its performance characteristics determined by [facility]. It has not been cleared or approved by the U.S. Food and Drug Administration. Current interpretive data was last revised 2020. Testing performed by: [facility], [facility] [place]., [address] Director Review Not Indicated EUNICE AGGARWAL Comment:Testing performed by : [facility], [facility] [place]., [address] Urine 09/27/2020 11:1 9 AM CDT 09/27/2020 1:26 PM CDT Zackary Chen MD LAB URINE ORDERABLES Final Result Performing Organization Address [facility] [place] [address] * Type and screen (09/27/2020 9:29 AM CDT) Pathologist [facility] ABO Rh A Positive [facility] Mitra, indirect Negative [facility] Blood specimen (specimen) 09/27/2020 9:29 AM CDT 09/27/2020 9:40 AM CDT Narrative [facility] - 09/27/2020 10:45 AM CDT Has the patient had Daratumumab or Isatuximab in the past 6 months?->Unknown Zackary Chen MD LAB BLOOD BANK TEST ORDERAB LES Final Result Performing Organization Address [facility] [place] [address] * RPR (09/27/2020 8:49 AM CDT) [facility] RPR Nonreactive Nonreactive [facility] Blood specimen (specimen) 09/27/2020 8:49 AM CDT 09/27/2020 9:44 AM CDT Zackary Chen MD LAB MICROBIOLOGY - GENERAL ORDERABLES Final Result Performing Organization Address [facility] [place] [address] * (ABNORMAL) CBC without differential (09/27/2020 8:49 AM CDT) [facility] WBC 7.5 3.8 - 9.9 K/cumm [facility] Hgb 11.6(L) 11.9 - 15.5 g/dL [facility] Hct 36.2 35.6 - 45.5 % [facility] Plt 214 150 - 400 K/cumm [facility] MPV 11.8 9.1 - 12.3 fL [facility] RBC 4.25 3.90 - 5.20 M/cumm [facility] MCV 85.2 81.3 - 96.4 fL [facility] MCH 27.3 27.1 - 33.3 pg [facility] MCHC 32.0(L) 32.3 - 35.7 g/dL [facility] RDW CV 14.2 11.1 - 14.9 % [facility] RDW SD 43.5 35.7 - 48.1 fL [facility] NRBC abs 0.00 0.00 - 0.01 K/cumm [facility] Blood specimen (specimen) 09/27/2020 8:49 AM CDT 09/27/2020 9:44 AM CDT Zackary Chen MD LAB BLOOD ORDERABLES Final Result Performing Organization Address [facility] Co de Phone Number [facility] Department [place] [address] * Group B streptococcal culture (09/17/2020 12:45 PM CDT) SCRIBED Group B Strep Positive [facility] Zackary Chen MD LAB MICROBIOLOGY - GENERAL ORDERABLES Final Result Performing Organization Address [facility] Co de Phone Number [facility] documented in this encounter Visit Diagnoses Diagnosis Encounter for induction of labor- Primary documented in this encounter Administered Medications Inactive Administered Medications - up to 3 most recent administrations Medication Order MAR Action Action Date Dose Rate Site acetaminophen (TYLENOL) tablet 1,000 mg 1,000 mg, oral, Every 6 hours scheduled, First dose on Thu09/28/20 at 0900, For 24 hours, When able to tolerate PO. Max 4 doses. Anesthesia orders for the first 24 hours ., Indications: PainIndications:Pain Given 09/28/2020 7:37 AM CDT 1,000 mg acetaminophen (TYLENOL) tablet 1,000 mg 1,000 mg, oral, Every 6 hours, First dose on Thu09/29/20 at 0815, Start in 24 hours after Anesthesia no longer covering., Indications: PainIndications:Pain Given 09/30/2020 7:01 AM CDT 1,000 mg Given 09/29/2020 10:02 PM CDT 1,000 mg Given 09/29/2020 3:48 PM CDT 1,000 mg acetaminophen (TYLENOL) tablet 1,000 mg 1,000 mg, oral, Every 6 hours scheduled, First dose on Thu09/28/20 at 1500, For 24 hours, When able to tolerate PO. Max 4 doses. Anesthesia orders for the first 24 hours ., Indications: PainIndications:Pain Given 09/29/2020 10:17 AM CDT 1,000 mg Given 09/29/2020 4:28 AM CDT 1,000 mg Given 09/28/2020 9:41 PM CDT 1,000 mg dextrose 5% and Lactated Ringer's infusion 125 mL/hr, intravenous, Continuous, Starting on Mare 09/27/20 at 1115 New Bag 09/28/2020 6:06 AM CDT 125 mL/hr 125 mL/hr New Bag 09/27/2020 7:15 PM CDT 125 mL/hr 125 mL/hr New Bag 09/27/2020 11:18 AM CDT 125 mL/hr 125 mL/hr docusate sodium (COLACE) capsule 100 mg 100 mg, oral, 2 times daily, First dose on Thu09/28/20 at 0930, Hold if diarrhea., Indications: constipation, Stool SoftenerIndications:constipation,Stool Softener Given 09/30/2020 9:01 AM CDT 100 mg Given 09/29/2020 9:14 PM CDT 100 mg Given 09/29/2020 7:40 AM CDT 100 mg enoxaparin (LOVENOX) syringe 40 mg 40 mg, subcutaneous, Daily (for enoxaparin), First dose on 09/29/20 at 2100, Indications: Deep Vein Thrombosis PreventionIndications:Deep Vein Thrombosis Prevention Given 09/29/2020 9:15 PM CDT 40 mg Right Lower Abdomen fentaNYL-bupivacaine preservative free in 0.9% sodium chloride 2 mcg/mL- 0.1 % cassette (premix) Continuous Rate: 8 mL/hr, Patient Bolus Dose: 8 mL, epidural, Continuous, Starting on Mare 09/27/20 at 2145, Until Thu09/28/20 at 0857, 100 mL, Indications: Pain, Stop epidural infusion after placental delivery and any indicated repair is complete., RoutineIndications:Pain Given 09/27/2020 9:57 PM CDT 5 mL New Syringe/Cartridge 09/27/2020 9:50 PM CDT 100 mL Given 09/27/2020 9:47 PM CDT 10 mL ibuprofen (ADVIL,MOTRIN) tablet 600 mg 600 mg, oral, Every 6 hours, First dose on Thu09/29/20 at 0815, Start in 24 hours after Anesthesia no longer covering., Indications: CrampsIndications:Cramps Given 09/30/2020 7:01 AM CDT 600 mg Given 09/29/2020 10:02 PM CDT 600 mg Given 09/29/2020 3:48 PM CDT 600 mg ketorolac (TORADOL) 15 mg/mL injection 15 mg 15 mg, intravenous, Every 6 hours scheduled, First dose on Thu09/28/20 at 1230, For 24 hours, Max 4 doses. Anesthesia orders for the first 24 hours ., Indications: PainIndications:Pain Given 09/29/2020 4:22 AM CDT 15 mg Given 09/28/2020 9:41 PM CDT 15 mg Given 09/28/2020 12:09 PM CDT 15 mg Lactated Ringer's (LR) bolus 1,000 mL 1,000 mL, intravenous, Once, On Mare 09/27/20 at 2145, For 1 dose, 15 to 30 minutes before epidural placement. New Bag 09/27/2020 9:16 PM CDT 1,000 mL 999 mL/hr Lactated Ringer's (LR) infusion - ADS Override Pull Starting on Mare 09/27/20 at 2106, For 1 dose, Created by cabinet override Lactated Ringer's (LR) infusion 125 mL/hr, intravenous, Continuous, Starting on Thu09/28/20 at 1515 New Bag 09/28/2020 2:52 PM CDT 125 mL/hr 125 mL/hr ondansetron (ZOFRAN) injection 4 mg 4 mg, intravenous, Administer over 2 Minutes, Every 6 hours PRN, nausea, vomiting, if not tolerating PO, Starting on Mare 6/17/21 at 0848, L&D Pre-Delivery, Indications: Nausea and VomitingIndications:Nausea and Vomiting Given 09/28/2020 8:00 AM CDT 4 mg ondansetron (ZOFRAN) injection 4 mg 4 mg, intravenous, Administer over 2 Minutes, Every 6 hours PRN, nausea, vomiting, if not tolerating PO, Starting on 09/29/20 at 0408, Start in 24 hours after Anesthesia no longer covering., Indications: Nausea and VomitingIndications:Nausea and Vomiting ondansetron (ZOFRAN) injection 4 mg 4 mg, intravenous, Administer over 2 Minutes, Every 6 hours PRN, nausea, vomiting, Starting on 09/28/20 at 1145, For 24 hours, Anesthesia orders for the first 24 hours ., Indications: Nausea and VomitingIndications:Nausea and Vomiting Given 09/28/2020 9:41 PM CDT 4 mg Given 09/28/2020 1:51 PM CDT 4 mg ondansetron ODT (ZOFRAN-ODT) disintegrating tablet 4 mg 4 mg, oral, Every 6 hours PRN, nausea, vomiting, Starting on 09/29/20 at 0408, Start in 24 hours after Anesthesia no longer covering., Indications: Nausea and VomitingIndications:Nausea and Vomiting oxyCODONE (ROXICODONE) tablet 5 mg 5 mg, oral, Every 4 hours PRN, 1st line for pain, Starting on Thu09/28/20 at 0559, For 24 hours, When able to tolerate PO. Anesthesia orders for the first 24 hours ., Indications: PainIndications:Pain Given 09/28/2020 6:51 AM CDT 5 mg oxyCODONE (ROXICODONE) tablet 5 mg 5 mg, oral, Every 4 hours PRN, 2nd line for pain, Starting on Thu09/28/20 at 0949, Indications: PainIndications:Pain Given 09/30/2020 11:24 AM CDT 5 mg Given 09/30/2020 7:01 AM CDT 5 mg Given 09/30/2020 1:39 AM CDT 5 mg oxyCODONE (ROXICODONE) tablet 5 mg 5 mg, oral, Every 4 hours PRN, 1st line for pain, Starting on Thu09/28/20 at 1144, For 24 hours, When able to tolerate PO. Anesthesia orders for the first 24 hours ., Indications: PainIndications:Pain Given 09/29/2020 7:43 AM CDT 5 mg Given 09/28/2020 11:12 PM CDT 5 mg oxytocin 30 unit/500 mL (0.06 unit/mL) in sodium chloride 0.9% (premix) solution 95-334 milliunits/min (95-334 mL/hr), 0.06 units/mL, intravenous, Continuous, Starting on Thu09/28/20 at 0630, Until Thu09/28/20 at 0857, Indications: Hemorrhage Prevention, 334 jessy-units/minutes for 30 minutes then decrease infusion to 95 jessy-units/min for 3.5 hours., RoutineIndications:Postpart um Hemorrhage Prevention New Bag 09/28/2020 5:45 AM CDT 95 milliunits/min 95 mL/hr oxytocin 30 unit/500 mL (0.06 unit/mL) in sodium chloride 0.9% (premix) solution 0.5-40 milliunits/min (0.5-40 mL/hr), 0.06 units/mL, intravenous, Titrated, Starting on Mare 09/27/20 at 1115, Until Thu09/28/20 at 0857, Indications: Induction of Labor, Start at 1 jessy-units/min and increase by 1 jessy-units/minutes every 30 minutes until contraction frequency is every 2-3 minutes. - - 20 milliunits/minutes maximum - All other patients 40 milliunits/minute maximum Discontinue for distress or uterine hyperstimulation., RoutineIndications:Inductio n of Labor Restarted 09/27/2020 11:10 PM CDT 1 milliunits/min 1 mL/hr Rate/Dose Change 09/27/2020 7:54 PM CDT 4 milliunits/min 4 mL/hr Restarted 09/27/2020 7:21 PM CDT 2 milliunits/min 2 mL/hr penicillin G potassium 3 million units/50 mL in dextrose (premix) 3 Million Units 3 Million Units, intravenous, Administer over 30 Minutes, Every 4 hours, First dose on Mare 09/27/20 at 1800, L&D Pre-Delivery, Until delivery, Indications: Prevention of Group B Streptococcal InfectionIndications:Prevention of Group B Streptococcal Infection New Bag 09/28/2020 2:41 AM CDT 3 Million Units New Bag 09/27/2020 10:02 PM CDT 3 Million Units New Bag 09/27/2020 5:49 PM CDT 3 Million Units penicillin G potassium 5 million units/50 mL in sterile water (premix) 5 Million Units 5 Million Units, intravenous, Administer over 30 Minutes, Once, On Mare 09/27/20 at 1330, For 1 dose, L&D Pre-Delivery, Indications: Prevention of Group B Streptococcal InfectionIndications:Prevention of Group B Streptococcal Infection New Bag 09/27/2020 1:07 PM CDT 5 Million Units PNV with kzsnylu-[id number]-GW tablet 1 tablet 1 tablet, oral, Daily, First dose on Thu09/28/20 at 0930, Begin when normal bowel activity resumes., Indications: Vitamin Deficiency PreventionIndications:Vitamin Deficiency Prevention Given 09/30/2020 9:02 AM CDT 1 tablet Given 09/29/2020 7:40 AM CDT 1 tablet Given 09/28/2020 10:29 AM CDT 1 tablet polyethylene glycol (MIRALAX) packet 17 g 17 g, oral, Daily PRN, constipation, Starting on Thu09/28/20 at 0857, Hold if diarrhea., Indications: constipationIndications:constipation Given 09/30/2020 9:02 AM CDT 17 g prochlorperazine (COMPAZINE) tablet 5 mg 5 mg, oral, 3 times daily PRN, nausea, vomiting, Starting on Thu09/28/20 at 1255 Given 09/28/2020 1:49 PM CDT 5 mg senna (SENOKOT) tablet 1 tablet 1 tablet, oral, 2 times daily, First dose on Thu09/28/20 at 0930, Hold if diarrhea., Indications: constipationIndications:constipation Given 09/30/2020 9:02 AM CDT 1 table t Given 09/29/2020 9:14 PM CDT 1 tablet Given 09/29/2020 7:40 AM CDT 1 tablet sodium chloride 0.9% flush 0.5-20 mL 0.5-20 mL, intra-catheter, Every 8 hours scheduled, First dose on Thu09/28/20 at 0930, Flush volume based on line type and size. Given 09/28/2020 9:30 PM CDT 10 mL Given 09/28/2020 1:57 PM CDT 10 mL terbutaline (BRETHINE) 1 mg/mL injection - ADS Override Pull Starting on Thu09/28/20 at 0344, For 1 dose, Created by cabinet override terbutaline (BRETHINE) injection 0.125 mg 0.125 mg, intravenous, Once as needed, distress and uterine tachysystole, Starting on Mare 09/27/20 at 0846, For 1 dose, L&D Pre-Delivery, Notify physician immediately if administration is required., Indications: distress and uterine tachysystoleIndications: distress and uterine tachysystole Given 09/27/2020 11:48 PM CDT 0.125 mg terbutaline (BRETHINE) injection 0.125 mg 0.125 mg, intravenous, Once as needed, distress and uterine tachysystole, Starting on Thu09/28/20 at 0734, For 1 dose, Notify physician immediately if administration is required., Indications: distress and uterine tachysystoleIndications: distress and uterine tachysystole Given 09/28/2020 3:48 AM CDT 0.125 mg documented in this encounter Discontinued Medications Medication Sig Discontinue Reason Start Date End Da te pyridoxine (VITAMIN B6) 25 mg tablet Take 25 mg by mouth 3 (three) times a day Stop Taking at Discharge 09/30/2020 doxylamine (UNISOM) 25 mg tablet Take 25 mg by mouth 3 (three) times a day Stop Taking at Discharge 09/30/2020 ondansetron ODT (ZOFRAN-ODT) 4 mg disintegrating tablet Take 1 tablet (4 mg total) by mouth every 8 (eight) hours as needed for nausea or vomiting Stop Taking at Discharge 04/04/2020 09/30/2020 documented as of this encounter Active and Recently Administered Medications Times are shown in CDT. Scheduled Medication Order 09/28/2020 09/29/2020 09/30/2020 acetaminophen (TYLENOL) tablet 1,000 mg (CANCELED) 1,000 mg, oral, Every 6 hours scheduled, First dose on Thu09/28/20 at 0900, For 24 hours, When able to tolerate PO. Max 4 doses. Anesthesia orders for the first 24 hours ., Indications: Pain 0737 (Given - Provider: Cinthya Alfaro RN - Comment: patient pain 4\10) acetaminophen (TYLENOL) tablet 1,000 mg 1,000 mg, oral, Every 6 hours, First dose on Thu09/29/20 at 0815, Start in 24 hours after Anesthesia no longer covering., Indications: Pain 0815 (Due)1548 (Given - Provider: Vesta El)2202 (Given - Provider: Dede Cope RN) 0701 (Given - Provider: Dede Cope RN)1227 (Canceled Entry - Provider: Marisa Brownlee RN) acetaminophen (TYLENOL) tablet 1,000 mg (COMPLETED) 1,000 mg, oral, Every 6 hours scheduled, First dose on Thu09/28/20 at 1500, For 24 hours, When able to tolerate PO. Max 4 doses. Anesthesia orders for the first 24 hours ., Indications: Pain 1350 (Given - Provider: Vesta El)2141 (Given - Provider: Dede Cope RN) 0424 (Not Given - Provider: Dede Cope RN - Reason: Patient/family refused)0428 (Given - Provider: Dede Cope RN)1017 (Given - Provider: Vesta El) docusate sodium (COLACE) capsule 100 mg 100 mg, oral, 2 times daily, First dose on Thu09/28/20 at 0930, Hold if diarrhea., Indications: constipation, Stool Softener 1029 (Given - Provider: Vesta El)2141 (Given - Provider: Dede Cope RN) 0740 (Given - Provider: Vesta El)2114 (Given - Provider: Dede Cope RN) 0901 (Given - Provider: Marisa Brownlee RN) enoxaparin (LOVENOX) syringe 40 mg 40 mg, subcutaneous, Daily (for enoxaparin), First dose on 09/29/20 at 2100, Indications: Deep Vein Thrombosis Prevention 2115 (Given - Provider: Dede Cope, KAMERON) ibuprofen (ADVIL,MOTRIN) tablet 600 mg 600 mg, oral, Every 6 hours, First dose on 09/29/20 at 0815, Start in 24 hours after Anesthesia no longer covering., Indications: Cramps 1017 (Given - Provider: Vesta El)1548 (Given - Provider: Vesta El)2202 (Given - Provider: Dede Cope, KAMERON) 0701 (Given - Provider: Dede Cope, KAMERON)1227 (Canceled Entry - Provider: Marisa Brownlee RN) ketorolac (TORADOL) 15 mg/mL injection 15 mg () 15 mg, intravenous, Every 6 hours scheduled, First dose on Thu09/28/20 at 1230, For 24 hours, Max 4 doses. Anesthesia orders for the first 24 hours ., Indications: Pain 1209 (Given - Provider: Kike Duncan, KAMERON)1834 (Hold - Provider: Kike Duncan RN - Reason: Patient/family refused)2141 (Given - Provider: Dede Cope, KAMERON) 0422 (Given - Provider: Dede Cope, KAMERON)0600 (Due) penicillin G potassium 3 million units/50 mL in dextrose (premix) 3 Million Units (CANCELED)(Linked Group 1) 3 Million Units, intravenous, Administer over 30 Minutes, Every 4 hours, First dose on Mare 09/27/20 at 1800, L&D Pre-Delivery, Until delivery, Indications: Prevention of Group B Streptococcal Infection 0241 (New Bag - Provider: Nicole Gomez, KAMERON)0600 (Not Given - Provider: Nicole Gomez, KAMERON - Reason: Order parameters not met) PNV with ayxdurg-hwia-RD tablet 1 tablet 1 tablet, oral, Daily, First dose on Thu09/28/20 at 0930, Begin when normal bowel activity resumes., Indications: Vitamin Deficiency Prevention 1029 (Given - Provider: Vesta El) 0740 (Given - Provider: Vesta El) 0902 (Given - Provider: Marisa Brownlee, KAMERON) senna (SENOKOT) tablet 1 tablet 1 tablet, oral, 2 times daily, First dose on Thu09/28/20 at 0930, Hold if diarrhea., Indications: constipation 1029 (Given - Provider: Vesta El)2141 (Given - Provider: Dede Cope RN) 0740 (Given - Provider: Vesta El)2114 (Given - Provider: Dede Cope, KAMERON) 0902 (Given - Provider: Marisa Brownlee, KAMERON) sodium chloride 0.9% flush 0.5-20 mL 0.5-20 mL, intra-catheter, Every 8 hours scheduled, First dose on Thu09/28/20 at 0930, Flush volume based on line type and size. 0930 (Due)1357 (Given - Provider: Vesta El)2130 (Given - Provider: Dede Cope RN) 0600 (Due)1400 (Due)2203 (Not Given - Provider: Dede Cope RN - Reason: Loss of IV access) 0649 (Not Given - Provider: Dede Cope RN - Reason: Loss of IV access) Continuous Medication Order 09/28/2020 09/29/2020 09/30/2020 dextrose 5% and Lactated Ringer's infusion (CANCELED) 125 mL/hr, intravenous, Continuous, Starting on Thu09/27/20 at 1115 0606 (New Bag - Provider: Nicole Gomez, KAMERON) Lactated Ringer's (LR) infusion(Linked Group 2) 125 mL/hr, intravenous, Continuous, Starting on Thu09/28/20 at 1330, Until regular diet. 1452 (Not Given - Provider: Kike Duncan RN - Reason: Order parameters not met) Lactated Ringer's (LR) infusion (CANCELED) 125 mL/hr, intravenous, Continuous, Starting on Thu09/28/20 at 1515 1452 (New Bag - Provider: Kike Duncan RN) oxytocin 30 unit/500 mL (0.06 unit/mL) in sodium chloride 0.9% (premix) solution (CANCELED) 95-334 milliunits/min (95-334 mL/hr), 0.06 units/mL, intravenous, Continuous, Starting on Thu09/28/20 at 0630, Until Thu09/28/20 at 0857, Indications: Hemorrhage Prevention, 334 jessy-units/minutes for 30 minutes then decrease infusion to 95 jessy-units/min for 3.5 hours., Routine 0545 (New Bag - Provider: Nicole Gomez, KAMERON) PRN Medication Order 09/28/2020 09/29/2020 09/30/2020 hydrocortisone (ANUSOL-HC) 2.5 % rectal cream rectal, 3 times daily PRN, itching, irritation, Starting on Thu09/28/20 at 0857, Indications: Hemorrhoids jjhkder-gcbzr-ilmmdoi (MMR) 1,000-12,500 TCID50/0.5 mL vaccine 0.5 mL 0.5 mL, subcutaneous, During hospitalization, immunization, Starting on Thu09/28/20 at 0857, For 1 dose, If not rubella immune. Refrigerate, Indications: Khkeowy-Btsvt-Ffmlxjo Vaccination ondansetron (ZOFRAN) injection 4 mg (CANCELED)(Linked Group 3) 4 mg, intravenous, Administer over 2 Minutes, Every 6 hours PRN, nausea, vomiting, if not tolerating PO, Starting on Mare 09/27/20 at 0848, L&D Pre-Delivery, Indications: Nausea and Vomiting 0800 (Given - Provider: Cinthya Alfaro, KAMERON) ondansetron (ZOFRAN) injection 4 mg(Linked Group 4) 4 mg, intravenous, Administer over 2 Minutes, Every 6 hours PRN, nausea, vomiting, if not tolerating PO, Starting on 09/29/20 at 0408, Start in 24 hours after Anesthesia no longer covering., Indications: Nausea and Vomiting ondansetron (ZOFRAN) injection 4 mg () 4 mg, intravenous, Administer over 2 Minutes, Every 6 hours PRN, nausea, vomiting, Starting on 09/28/20 at 1145, For 24 hours, Anesthesia orders for the first 24 hours ., Indications: Nausea and Vomiting 1351 (Given - Provider: Vesta El)2141 (Given - Provider: Dede Cope, KAMERON) ondansetron ODT (ZOFRAN-ODT) disintegrating tablet 4 mg(Linked Group 4) 4 mg, oral, Every 6 hours PRN, nausea, vomiting, Starting on 09/29/20 at 0408, Start in 24 hours after Anesthesia no longer covering., Indications: Nausea and Vomiting oxyCODONE (ROXICODONE) tablet 5 mg (CANCELED) 5 mg, oral, Every 4 hours PRN, 1st line for pain, Starting on 09/28/20 at 0559, For 24 hours, When able to tolerate PO. Anesthesia orders for the first 24 hours ., Indications: Pain 0651 (Given - Provider: Nicole Gomez RN) oxyCODONE (ROXICODONE) tablet 5 mg 5 mg, oral, Every 4 hours PRN, 1st line for pain, Starting on 09/29/20 at 0808, May administer 1 hour after 1st line agent for uncontrolled or increasing pain. Start in 24 hours after Anesthesia no longer covering., Indications: Pain 0742 (Due)1307 (Due)1715 (Due)2120 (Not Given - Provider: Dede Cope RN - Reason: Other - Comment: see other MAR entry) 0137 (Not Given - Provider: Dede Cope RN - Reason: Other - Comment: see other MAR order)0700 (Canceled Entry - Provider: Marisa Brownlee RN - Comment: Med was scanned at 0701 on duplicate oxycodone order) oxyCODONE (ROXICODONE) tablet 5 mg 5 mg, oral, Every 4 hours PRN, 2nd line for pain, Starting on Thu09/28/20 at 0949, Indications: Pain 1028 (Given - Provider: Vesta El)1715 (Given - Provider: Kike Duncan RN) 1308 (Given - Provider: Vesta El)1717 (Given - Provider: Vesta El)2120 (Given - Provider: Dede Cope RN) 0139 (Given - Provider: Dede Cope, KAMERON)0701 (Given - Provider: Dede Cope, KAMERON)1124 (Given - Provider: Marisa Brownlee, KAMERON) oxyCODONE (ROXICODONE) tablet 5 mg () 5 mg, oral, Every 4 hours PRN, 1st line for pain, Starting on Thu09/28/20 at 1144, For 24 hours, When able to tolerate PO. Anesthesia orders for the first 24 hours ., Indications: Pain 2312 (Given - Provider: Dede Cope RN) 0743 (Given - Provider: Vesta El) polyethylene glycol (MIRALAX) packet 17 g 17 g, oral, Daily PRN, constipation, Starting on Thu09/28/20 at 0857, Hold if diarrhea., Indications: constipation 0902 (Given - Provider: Marisa Brownlee RN) prochlorperazine (COMPAZINE) tablet 5 mg 5 mg, oral, 3 times daily PRN, nausea, vomiting, Starting on Thu09/28/20 at 1255 1349 (Given - Provider: Vesta El) simethicone (MYLICON) chewable tablet 80 mg 80 mg, oral, 4 times daily PRN (after meals, bedtime), flatulence, Starting on Thu09/28/20 at 0857, Indications: Flatulence sodium chloride 0.9% flush 0.5-20 mL 0.5-20 mL, intra-catheter, As needed, line care, Starting on Thu09/28/20 at 0857, Flush volume based on line type and size. Flush before and after each use. terbutaline (BRETHINE) injection 0.125 mg (COMPLETED)(Linked Group 5) 0.125 mg, intravenous, Once as needed, distress and uterine tachysystole, Starting on Thu09/28/20 at 0734, For 1 dose, Notify physician immediately if administration is required., Indications: distress and uterine tachysystole 0348 (Given - Provider: Nicole Gomez, KAMERON) Linked Groups Order Group 1: penicillin G potassium 5 million units/50 mL in sterile water (premix) 5 Million Units (COMPLETED) 5 Million Units, intravenous, Administer over 30 Minutes, Once, On Mare 09/27/20 at 1330, For 1 dose, L&D Pre-Delivery, Indications: Prevention of Group B Streptococcal Infection Followed by penicillin G potassium 3 million units/50 mL in dextrose (premix) 3 Million Units (CANCELED)Jump to med 3 Million Units, intravenous, Administer over 30 Minutes, Every 4 hours, First dose on Mare 09/27/20 at 1800, L&D Pre-Delivery, Until delivery, Indications: Prevention of Group B Streptococcal Infection Group 2: oxytocin 30 unit/500 mL (0.06 unit/mL) in sodium chloride 0.9% (premix) solution () 95-334 milliunits/min (95-334 mL/hr), 0.06 units/mL, intravenous, Titrated, Starting on Thu09/28/20 at 0930, Until Thu09/28/20 at 1329, Indications: Hemorrhage Prevention, 334 jessy-units/minutes for 30 minutes then decrease infusion to 95 jessy-units/min for 3.5 hours. , Routine Followed by Lactated Ringer's (LR) infusionJump to med 125 mL/hr, intravenous, Continuous, Starting on Thu09/28/20 at 1330, Until regular diet. Group 3: ondansetron ODT (ZOFRAN-ODT) disintegrating tablet 4 mg (CANCELED) 4 mg, oral, Every 6 hours PRN, nausea, vomiting, Starting on Mare 09/27/20 at 0848, L&D Pre-Delivery, Indications: Nausea and Vomiting Or ondansetron (ZOFRAN) injection 4 mg (CANCELED)Jump to med 4 mg, intravenous, Administer over 2 Minutes, Every 6 hours PRN, nausea, vomiting, if not tolerating PO, Starting on Mare 09/27/20 at 0848, L&D Pre-Delivery, Indications: Nausea and Vomiting Group 4: ondansetron ODT (ZOFRAN-ODT) disintegrating tablet 4 mgJump to med 4 mg, oral, Every 6 hours PRN, nausea, vomiting, Starting on 09/29/20 at 0408, Start in 24 hours after Anesthesia no longer covering., Indications: Nausea and Vomiting Or ondansetron (ZOFRAN) injection 4 mgJump to med 4 mg, intravenous, Administer over 2 Minutes, Every 6 hours PRN, nausea, vomiting, if not tolerating PO, Starting on 09/29/20 at 0408, Start in 24 hours after Anesthesia no longer covering., Indications: Nausea and Vomiting Group 5: terbutaline (BRETHINE) injection 0.125 mg (COMPLETED)Jump to med 0.125 mg, intravenous, Once as needed, distress and uterine tachysystole, Starting on Thu09/28/20 at 0734, For 1 dose, Notify physician immediately if administration is required., Indications: distress and uterine tachysystole Or terbutaline (BRETHINE) injection 0.25 mg (COMPLETED) 0.25 mg, subcutaneous, Once as needed, distress and uterine tachysystole if no IV access, Starting on 09/28/20 at 0734, For 1 dose, Notify physician immediately if administration is required., Indications: distress and uterine tachysystole documented in this encounter Orders Medications Ordered That Alex ht Not Have Been Administered Count Last Ordered Date First Ordered Date diphenhydrAMINE (BENADRYL) injection 25 mg 2 09/28/2020 hydrocortisone (ANUSOL-HC) 2 .5 % rectal cream 1 09/28/2020 HYDROmorphone (DILAUDID) injection 0.2 mg 2 09/28/2020 HYDROmorphone (DILAUDID) injection 0.4 mg 1 09/28/2020 ketorolac (TORADOL) injection 30 mg 1 09/28 Lactated Ringer's (LR) infusion 1 swoqkxl-xphbs-lgwfile (MMR) 1,000-12,500 TCID50/0.5 mL vaccine 0.5 mL 1 09/28/2020 nalbuphine (NUBAIN) injection 5 mg 2 2020 naloxone (NARCAN) 0.4 mg/mL injection 0.04-0.4 mg 3 09/28/2020 09/27/2020 ondansetron (ZOFRAN) injection 4 mg 3 09/2809/27/2020 ondansetron ODT (ZOFRAN-ODT) disintegrating tablet 4 mg 3 09/28/2020 09/27/2020 oxyCODONE (ROXICODONE) tablet 5 mg 1 2020 oxytocin 30 unit/500 mL (0.0 6 unit/mL) in sodium chloride 0.9% (premix) solution 1 09/28/2020 simethicone (MYLICON) chewab le tablet 80 mg 1 09/28/2020 sodium chloride 0.9% flush 0.5-20 mL 5 09/1109/27/2020 terbutaline (BRETHINE) injection 0.25 mg 2 09/28/2020 09/27/2020 carboprost (HEMABATE) injection 250 mcg 1 0 09/27/2020 Lactated Ringer's (LR) bolus 1,000 mL 1 lidocaine PF (XYLOCAINE) 10 mg/mL (1 %) preservative free injection 100 mg 1 09/27/2020 loperamide (IMODIUM) capsule 2 mg 1 methylergonovine (METHERGINE ) injection 0.2 mg 1 09/27/2020 miSOPROStol (CYTOTEC) split tablet 25 mcg 1 09/27/2020 miSOPROStoL (CYTOTEC) tablet 800 mcg 1 09/11 oxytocin (PITOCIN) injection 10 Units 1 tranexamic acid (CYKLOKAPRON ) 1,000 mg/100 mL (10 mg/mL) in sodium chloride (premix) 1,000 mg 1 09/27/2020 CORE MEASURES Count Last Ordered Date First Ord ered Date REASON FOR NO VTE PROPHYLAXI S - HOSPITAL ADMISSION - MEDICATIONS 1 09/28/2020 REASON FOR NO VTE PROPHYLAXIS AT ADMISSION 1 09/27/2020 documented in this encounter Care Teams 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
--- OUTSIDE RECORDS SUMMARY | 2024-04-02 11:54 | XMS_ITS | Encounter Summary ---
Author Organization [facility] Healthcare Address [address] [place] [address] Care Team Providers Care Cutter Aluminum Sheet Name Role Phone No, Physician Primary Care Provider [phone] Encounter Details Date Type Department Care Team (Late st Contact Info) Description 09/28/2020 4:05 AM CDT - 09/28/2020 6:05 AM CDT Surgery [address] [id number] Delmy Awad MD [address] [facility] [id number] [place] [address] SECTION Surgery Details Date/Time Status Location OR Service Patient Class Case Class Case Type Trauma Case? 09/28/2020 4:05 AM Posted [facility] L&D OR L&D OR 3 Obstetrics / Gynecology Inpatient Level 2 (L&D) Panel 1 Procedure LRB Anes Op Region Wound Class Comments SECTION N/A Choice Abdomen Class II - Cl sylvain Contaminated Surgeon Surgeon Role Service Panel Delmy Awad MD Primary Obstetrics / Gynecology 1 Lakisha Butts MD Resident - Assisting Obstetrics / G ynecology 1 documented in this encounter Social History [...] of Binge Drinking Not on file 08/11 [place] Depression Scale Answer Date Recorded [place] Depression Scale Total 0 07/05/2020 The thought of harming myself has occurred to me . 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 Gender Identity Female 12/02/2022 6:55 PM CDT Sexual Orientation Straight 12/02/2022 6: 55 PM CDT documented as of this encounter Last Filed Vital Signs Vital Sign Reading Time Taken Comments Blood Pressure 114/65 09/28/2020 3:15 AM CDT Pulse 96 09/28/2020 4:00 AM CDT Temperature 37.1 ??C (98.8 ??F) 09/28/2020 5:45 AM CD T Respiratory Rate 18 09/28/2020 5:45 AM CDT Oxygen Saturation 100% 09/28/2020 3:55 AM CDT Inhaled Oxygen Concentration - - [...] Primary Care Physician at Discharge: No, Physician [phone] Admission Date: 09/27/2020 Discharge Date: 09/30/2020 Admission Location: [facility] Problems/Diagnoses: Active Problems: No Active Problems: There [...] NI: varivax Pp #MJ use Hospital Course: Steve Shi is a 25 y.o. female [...] Commonly known as: NICODERM CQ PNV with mhttlxb-palo-IJ 27 mg iron- 1 mg tablet Take [...] encounter Discharge Instructions * Discharge Instructions* Vivi Lamb NP - 09/29/2020 4:20 PM CDT Discharge Instructions [...] first call our OB communication center at [phone]. * If you have SEVERE illness including [...] hours). Do NOT supplement unless instructed by Clam Shucking Machine Tender. * Call your Clam Shucking Machine Tender if your baby has poor eating habits [...] call our centralized OB communication center at [phone]. Donot come to the hospital or clinic [...] pain 20 tablet 09/30/2020 1 PNV with svohbvi-mrpe-RL 27 mg iron- 1 mg tabletIndications :Vitamin [...] 30 packet 3 09/30/2020 3 PNV with czzuqki-kwhb-RG 27 mg iron- 1 mg tabletIndications :Vitamin [...] intra-catheter, Q8H KASIE PRN Medications hydrocortisone ??? wvsbacq-jladu-vrjhntu ??? ondansetron ODT OR ondansetron ??? oxyCODONE [...] ABORH A Positive 09/27/2020 IDCOOMB Negative 09/27/2020 [id number] Nonreactive 08/16/2020 LABRPR Nonreactive 09/27/2020 GBS Positive [...] documented in the resident's/fellow's note.. * Margarette Argueta LCSW - 09/29/2020 3:08 PM CDT Problem Steve Shi 1995 was admitted on??09/28/2020 for Labor and Delivery. Identified problem and Social Work referral for??history of depression/anxiety and history of marijuana use. ?? Intervention baby girl was born??09/28/20??via delivery.??This is MOBs first child.? Throughout??the??current SW visit, MOB noted to be sitting upright, attentive and engaged, providing adequate eye contact??and discussion. No concerns for SI/HI noted. ??JENIFER reports no significant depressive or symptoms during her , states that she still experiences some anxiety but it is managed by using coping skills. MOB has found praying to be very helpful. JENIFER completed an initial visit with [facility] on 05/04/2020 and is agreeable to utilizing [facility] in the future should she experience an increase in anxiety/depression symptoms. JENIFER states that she was prescribed Zoloft by her doctor at the [facility] OB clinic but discontinued the use as she did not like how it made her feel. ?? JENIFER reports Marijuana use early in but has not used MJ since the first trimester.?? Both MOB and UDS results are negative.? MJ cessation discussed via medical team.?? CARA explained that 's meconium results are pending [...] given to her??at this visit. ?? Goal/Plan CARA has reviewed and provided information/education on Baby [...] Medications diphenhydrAMINE ??? hydrocortisone ??? HYDROmorphone ??? sawtjgc-fnmpw-ciacefr ??? nalbuphine ??? naloxone ??? ondansetron ODT [...] ABORH A Positive 09/27/2020 IDCOOMB Negative 09/27/2020 [id number] Nonreactive 08/16/2020 LABRPR Nonreactive 09/27/2020 GBS Positive [...] Discussed with Dr. Awad. Sanam Carrizales MD TELETYPE OR VARITYPE KEYBOARD OPERATOR Resident, PGY4 [facility] [place]/[facility] * Champ Waldrop MD - 09/27/2020 11:54 PM CDT OB Progress Note MD to bedside due to deceleration to the 90s (baseline was 120s). Decel continued despite patient repositioning. Pitocin paused. Patient was placed in hands and knees. terb was given x1. Approximately one minute after terb, heart tones improved to the 110s. Total deceleration lasted for7 mins. Cervical check 75/-[address] Awad updated and was present. Champ Waldrop MD, MPH PGY-3, Obstetrics & Gynecology * Sanam Carrizales MD - 09/27/2020 11:09 PM CDT FHT now cat I. S/p epidural. Will restart LDOT. Sanam Carrizales MD TELETYPE OR VARITYPE KEYBOARD OPERATOR Resident, PGY4 [facility] [place]/[facility] * Lakisha Butts MD - 09/27/2020 8:34 PM CDT R2 OB Update To bedside for 4 min decel to 90s. Repositioned to hands and knees with improvement. SVE 3/75/-2. AROM@2030, clear fluid. IUPC placed to better titrate OT. Recommend patient d/w anesthesia about getting epidural given NRFS over her IOL and need for possible CS under GETA if she has a terminal bradycardic event. Patient amenable to talking to anesthesia at this time. D/w Dr. Ritesh Butts MD * Kenzie Lord MD - 09/27/2020 4:54 PM CDT R4 TELETYPE OR VARITYPE KEYBOARD OPERATOR Progress Note To patient room for deceleration. 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 [...] ABORH A Positive 08/16/2020 IDCOOMB Negative 08/16/2020 [id number] Nonreactive 08/16/2020 LABRPR Nonreactive 08/16/2020 GBS Positive 09/17/2020 VZVIGG Nonreactive 06/25/2020 Assessment and Plan Steve Shi is a [...] assistance as needed. * Hospital Course - [facility], Nivia Camacho MD - 09/28/2020 11:27 AM CDT Steve Shi is a 25 y.o. female [...] patient has chosen to breastfeed her and declined contraception s/p counseling. * Plan [...] discussed with Dr. Awad. Sanam Carrizales MD TELETYPE OR VARITYPE KEYBOARD OPERATOR Resident, PGY4 [facility] [place]/[facility] * Op Note - Lakisha Butts MD - 09/28/2020 4:05 AM CDT [facility] Section Delivery Note Patient's Name: Steve Shi : 1995 Attending Physician: Delmy Awad [...] delivery: >8 hours Antibiotics: Ancef and Azithromycin Infant Delivery Date/Time: 09/28/2020 at 4:40 AM Placenta Delivery Date & Time: 09/28/2020 4:42 AM Cord: 3 vessels [3] Delayed cord clamping: Yes, 60 seconds. Infant: living 7 lb 6.2 oz (3.35 kg) female APGARs: 8 / 9 Disposition: [place] [facility] Operative Note Surgical Team: Surgeon(s) and Role: * Delmy Awad MD - Primary * Lakisha Butts MD - Resident - Assisting Preoperative Diagnosis: Intrauterine at 40w1d Non-reassuring status Postoperative Diagnosis: Same Anesthesia: CSE Name of Operation: Primary Low Transverse Section via Pfannensteil Indication for Procedure: Steve Shi is a 25 y.o. female [...] patient was agreeable. Operative Findings: Viable female infant, in Vertex presentation APGARS were 8 / [...] portions of the procedure. Cosigned by Delmy Awad MD at 10/01/2020 8:05 AM CDT Associated [...] positive, will start PCN. Membrane Status: AROM @2029 on 09/27 8. Indications for UDS: history of illicit drug use in last 12 months (MADY). Verbal consent obtainedfor UDS: Yes 9. MOF: [...] CDT) WBC 10.7(H) 3.8 - 9.9 K/cumm [facility] Hgb 10.4(L) 11.9 - 15.5 g/dL [facility] Hct 32.3(L) 35.6 - 45.5 % [facility] Plt 189 150 - 400 K/cumm [facility] MPV 11.4 9.1 - 12.3 fL [facility] RBC 3.81(L) 3.90 - 5.20 M/cumm [facility] MCV 84.8 81.3 - 96.4 fL [facility] MCH 27.3 27.1 - 33.3 pg [facility] MCHC 32.2(L) 32.3 - 35.7 g/dL [facility] RDW CV 14.3 11.1 - 14.9 % [facility] RDW SD 44.3 35.7 - 48.1 fL [facility] NRBC abs 0.00 0.00 - 0.01 K/cumm [facility] Blood specimen (specimen) 09/29/2020 4:43 AM CDT 09/29/2020 5:00 AM CDT us Delmy Awad MD LAB BLOOD ORDERABLES Final Result [facility] [place] [address] * Surgical pathology (09/28/2020 4:42 AM CDT) Placenta 09/28/2020 4:42 AM CDT 09/28/2020 8:55 AM CDT Narrative 10/04/2020 1:11 PM CDT EPIC results best viewed via link to PDF [facility] Lakisha [facility] [place] [address] SURGICAL PATHOLOGY REPORT FINAL Patient Name: ?? STEVE SHI Gender: ??F : ??1995 (Age: 25) Address: ??[address] [place] [id number] Hospital #: ??[id number] Taken:09/28/2020 Received:09/28/2020 Reported: 10/04/2020 Patient Type: [facility] Inpatient ?? Service: Obstetrics Location: [facility] ??[address] Physician(s): ??Sanam Carrizales M.D. Diagnosis: A. Placenta, section ? [...] restriction. Procedure: section; intraoperative findings: Viable female infant with Apgars of 8/9 Specimen(s) Received: A: [...] determined by the Surgical Pathology Department at [facility] as part of an ongoing quality assurance supervisor body program and in compliance with federally mandated [...] by the Surgical Pathology Department of [facility]. ??It has not been cleared or [...] AM CDT) Drug screen, ur Negative EUNICE AGGARWAL Comment: Interpretive Data This test detects the presence of approximately 50 substances using LC-tandem mass spectrometry. For a list of specific compounds and detection limits refer to the Lab Test Guide Book. While this technique is highly specific, false-positive and false-negative findings may occur in very rare circumstances. Contact the Institutional Aide insulation estimator ([phone] #2) for consultation if needed. This test was developed and its performance characteristics determined by [facility]. It has not been cleared or approved by the U.S. Food and Drug Administration. Current interpretive data was last revised 2020. Testing performed by: [facility], [place]., [address] Director Review Not Indicated EUNICE AGGARWAL Comment:Testing performed by : [facility], [place]., [address] Urine 09/27/2020 11:1 9 AM CDT 09/27/2020 1:26 PM CDT us Zackary Chen MD LAB URINE ORDERABLES Final Result EUNICE AGGARAWL [facility] [place] [address] * Type and screen (09/27/2020 9:29 AM CDT) ABO Rh A Positive EUNICE AGGARWAL Mitra, indirect Negative EUINCE AGGARWAL Blood specimen (specimen) 09/27/2020 9:29 AM CDT 09/27/2020 9:40 AM CDT Narrative [facility] - 09/27/2020 10:45 AM CDT Has the patient had Daratumumab or Isatuximab in the past 6 months?->Unknown Zackary Chen MD LAB BLOOD BANK TEST ORDERAB LES Final Result Performing Organization Address [facility] Co de Phone Number [facility] [place] [address] * RPR (09/27/2020 8:49 AM CDT) [facility] RPR Nonreactive Nonreactive [facility] Blood specimen (specimen) 09/27/2020 8:49 AM CDT 09/27/2020 9:44 AM CDT Zackary Chen MD LAB MICROBIOLOGY - GENERAL ORDERABLES Final Result Performing Organization Address [facility] de Phone Number [facility] [place] [address] * (ABNORMAL) CBC without differential (09/27/2020 8:49 AM CDT) [facility] WBC 7.5 3.8 - 9.9 K/cumm [facility] Hgb 11.6(L) 11.9 - 15.5 g/dL [facility] Hct 36.2 35.6 - 45.5 % [facility] Plt 214 150 - 400 K/cumm [facility] MPV 11.8 9.1 - 12.3 fL [facility] RBC 4.25 3.90 - 5.20 M/cumm [facility] MCV 85.2 81.3 - 96.4 fL [facility] MCH 27.3 27.1 - 33.3 pg [facility] MCHC 32.0(L) 32.3 - 35.7 g/dL [facility] RDW CV 14.2 11.1 - 14.9 % [facility] RDW SD 43.5 35.7 - 48.1 fL [facility] NRBC abs 0.00 0.00 - 0.01 K/cumm [facility] Blood specimen (specimen) 09/27/2020 8:49 AM CDT 09/27/2020 9:44 AM CDT Zackary Chen MD LAB BLOOD ORDERABLES Final Result Performing Organization Address [facility] Co de Phone Number [facility] Department [place] [address] * Group B streptococcal culture (09/17/2020 12:45 PM CDT) SCRIBED Group B Strep Positive [facility] Zackary Chen MD LAB MICROBIOLOGY - GENERAL ORDERABLES Final Result Performing Organization Address [facility] Co de Phone Number [facility] [place] documented in this encounter Visit Diagnoses Not [...] Given 09/29/2020 3:48 PM CDT 1,000 mg docusate sodium (COLACE) capsule 100 mg 100 [...] PM CDT 40 mg Right Lower Abdomen ibuprofen (ADVIL,MOTRIN) tablet 600 mg 600 mg, oral, Every 6 hours, First dose on 09/29/20 at 0815, Start in 24 hours after Anesthesia no longer covering., Indications: CrampsIndications:Cramps Given 09/30/2020 7:01 AM CDT 600 mg Given 09/29/2020 10:02 PM CDT 600 mg Given 09/29/2020 3:48 PM CDT 600 mg ondansetron (ZOFRAN) injection 4 mg 4 [...] Given 09/30/2020 1:39 AM CDT 5 mg PNV with wajqjxk-chfr-NH tablet 1 tablet 1 tablet, oral, Daily, [...] Given 09/28/2020 1:57 PM CDT 10 mL documented in this encounter Discontinued Medications Medication [...] Cope RN)1227 (Canceled Entry - Provider: Marisa Brownlee, KAMERON) acetaminophen (TYLENOL) tablet 1,000 mg (COMPLETED) 1,000 [...] Cope RN) 0901 (Given - Provider: Marisa Brownlee, KAMERON) enoxaparin (LOVENOX) syringe 40 mg 40 mg, subcutaneous, Daily (for enoxaparin), First dose on Thu09/29/20 at 2100, Indications: Deep Vein Thrombosis Prevention 2114 (Given - Provider: Dede Cope, KAMERON) ibuprofen (ADVIL,MOTRIN) tablet 600 mg 600 mg, oral, Every 6 hours, First dose on Thu09/29/20 at 0815, Start in 24 hours after Anesthesia no longer covering., Indications: Cramps 1017 (Given - Provider: Vesta El)1548 (Given - Provider: Vesta El)2202 (Given - Provider: Dede Cope, KAMERON) 0701 (Given - Provider: Dede Cope, KAMERON)1227 (Canceled Entry - Provider: Marisa Brownlee, KAMERON) ketorolac (TORADOL) 15 mg/mL injection 15 mg () 15 mg, intravenous, Every 6 hours scheduled, First dose on Thu09/28/20 at 1230, For 24 hours, Max 4 doses. Anesthesia orders for the first 24 hours ., Indications: Pain 1209 (Given - Provider: Kike Duncan, KAMERON)1834 (Hold - Provider: Kike Duncan RN - Reason: Patient/family refused)2141 (Given - Provider: Dede Cope RN) 0422 (Given - Provider: Dede Cope, KAMERON)0600 [...] Gomez, KAMERON)0600 (Not Given - Provider: Nicole Gomez RN - Reason: Order parameters not met) PNV with aclnsjq-bjel-UU tablet 1 tablet 1 tablet, oral, Daily, [...] Cope, KAMERON) 0902 (Given - Provider: Marisa Brownlee RN) sodium chloride 0.9% flush 0.5-20 mL [...] 1115 0606 (New Bag - Provider: Nicole Gomez RN) Lactated Ringer's (LR) infusion(Linked Group 2) 125 [...] 0545 (New Bag - Provider: Nicole Gomez, RN) PRN Medication Order 09/28/2020 09/29/2020 09/30/2020 hydrocortisone (ANUSOL-HC) 2.5 % rectal cream rectal, 3 times daily PRN, itching, irritation, Starting on Thu09/28/20 at 0857, Indications: Hemorrhoids otewmkc-yzwiu-mvctxht (MMR) 1,000-12,500 TCID50/0.5 mL vaccine 0.5 mL 0.5 mL, subcutaneous, During hospitalization, immunization, Starting on Thu09/28/20 at 0857, For 1 dose, If not rubella immune. Refrigerate, Indications: Tjjzmcn-Grocg-Ojgtrjg Vaccination ondansetron (ZOFRAN) injection 4 mg (CANCELED)(Linked [...] Cope RN) 0139 (Given - Provider: Dede Cope RN)0701 (Given - Provider: Dede Cope RN)1124 (Given - Provider: Marisa Brownlee RN) oxyCODONE (ROXICODONE) tablet 5 mg () 5 mg, oral, Every 4 hours PRN, 1st line for pain, Starting on Thu09/28/20 at 1144, For 24 hours, When able to tolerate PO. Anesthesia orders for the first 24 hours ., Indications: Pain 2312 (Given - Provider: Dede Cope, KAMERON) 0743 (Given - Provider: Vesta El) polyethylene [...] tachysystole if no IV access, Starting on Thu09/28/20 at 0734, For 1 dose, Notify physician immediately if administration is required., Indications: distress and uterine tachysystole documented in this encounter Orders Medications Ordered That Alex ht Not Have Been Administered Count Last Ordered Date First Ordered Date enoxaparin (LOVENOX) syringe 40 mg 1 2020 acetaminophen (TYLENOL) tablet 1,000 mg 3 0 09/28/2020 diphenhydrAMINE (BENADRYL) injection 25 mg 2 09/28/2020 docusate sodium (COLACE) capsule 100 mg 1 0 09/28/2020 hydrocortisone (ANUSOL-HC) 2 .5 % rectal cream 1 09/28/2020 HYDROmorphone (DILAUDID) injection 0.2 mg 2 09/28/2020 HYDROmorphone (DILAUDID) injection 0.4 mg 1 09/28/2020 ibuprofen (ADVIL,MOTRIN) tablet 600 mg 1 ketorolac (TORADOL) 15 mg/mL injection 15 mg 1 09/28/2020 ketorolac (TORADOL) injection 30 mg 1 09/28 Lactated Ringer's (LR) infusion 2 wcktfls-rgqmp-hijzonu (MMR) 1,000-12,500 TCID50/0.5 mL vaccine 0.5 mL 1 09/28/2020 nalbuphine (NUBAIN) injection 5 mg 2 2020 naloxone (NARCAN) 0.4 mg/mL injection 0.04-0.4 mg 3 09/28/2020 09/27/2020 ondansetron (ZOFRAN) injection 4 mg 5 09/2809/27/2020 ondansetron ODT (ZOFRAN-ODT) disintegrating tablet 4 mg 3 09/28/2020 09/27/2020 oxyCODONE (ROXICODONE) tablet 5 mg 4 2020 oxytocin 30 unit/500 mL (0.0 6 unit/mL) in sodium chloride 0.9% (premix) solution 3 09/28/2020 0 09/27/2020 PNV with gavkijg-seqf-QZ tablet 1 tablet 1 09/28/2020 polyethylene glycol (MIRALAX) packet 17 g 1 09/28/2020 prochlorperazine (COMPAZINE) tablet 5 mg 1 09/28/2020 senna (SENOKOT) tablet 1 tablet 1 simethicone (MYLICON) chewab le tablet 80 mg 1 09/28/2020 sodium chloride 0.9% flush 0.5-20 mL 6 09/1109/27/2020 terbutaline (BRETHINE) injection 0.125 mg 2 09/28/2020 09/27/2020 terbutaline (BRETHINE) injection 0.25 mg 2 09/28/2020 09/27/2020 carboprost (HEMABATE) injection 250 mcg 1 0 09/27/2020 dextrose 5% and Lactated Ringer's infusion 1 09/27/2020 fentaNYL-bupivacaine preserv ative free in 0.9% sodium chloride 2 mcg/mL- 0.1 % cassette (premix) 1 09/27/2020 Lactated Ringer's (LR) bolus 1,000 mL 2 lidocaine PF (XYLOCAINE) 10 mg/mL (1 %) preservative free injection 100 mg 1 09/27/2020 loperamide (IMODIUM) capsule 2 mg 1 methylergonovine (METHERGINE ) injection 0.2 mg 1 09/27/2020 miSOPROStol (CYTOTEC) split tablet 25 mcg 1 09/27/2020 miSOPROStoL (CYTOTEC) tablet 800 mcg 1 09/11 oxytocin (PITOCIN) injection 10 Units 1 penicillin G potassium 3 mil lion units/50 mL in dextrose (premix) 3 Million Units 1 09/27/2020 penicillin G potassium 5 mil lion units/50 mL in sterile water (premix) 5 Million Units 1 09/27/2020 tranexamic acid (CYKLOKAPRON ) 1,000 mg/100 mL (10 mg/mL) in sodium chloride (premix) 1,000 mg 1 09/27/2020 CORE MEASURES Count Last Ordered Date First Ord ered Date REASON FOR NO VTE PROPHYLAXI S - HOSPITAL ADMISSION - MEDICATIONS 1 09/28/2020 REASON FOR NO VTE PROPHYLAXIS AT ADMISSION 1 09/27/2020 documented in this encounter Care Teams Cutter Aluminum Sheet Relationship Specialty Start Date End Date No, Physician PCP - General 11/01/16 documented as of this encounter
--- OUTSIDE RECORDS SUMMARY | 2024-04-02 11:54 | XMS_ITS | Encounter Summary ---
Author Organization [facility] Healthcare Address [address] [place] [address] Care Team Providers Care Ota Name Role Phone No, Physician Primary Care Provider [phone] Reason for Visit * Reason Onset Date Comments Outgoing Call 09/24/2020 Pre-Proce dure Phone Call Encounter Details Date Type Department Care Team (Late st Contact Info) Description 09/24/[address] [phone] Svetlana Eubanks RN Outgoing Call (Pre-Procedure Phone Call) Social History Tobacco Use Types Packs/Day Years [...] of Binge Drinking Not on file 08/11 [place] Depression Scale Answer Date Recorded [place] Depression Scale Total 0 07/05/2020 The thought of harming myself has occurred to me . 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 Phone call was answered on both occasions but was not able to speak to patient as the phone was disconnected both times. Will attempt to send instructions through [facility] if available. documented in this encounter Plan of Treatment Not on file documented as of this encounter Visit Diagnoses Not on filedocumented in this encounter Care Teams Ota Relationship Specialty Start Date End Date No, Physician PCP - General 11/01/16 documented as of this encounter
--- OUTSIDE RECORDS SUMMARY | 2024-04-02 11:54 | XMS_ITS | Encounter Summary ---
Author Organization [facility] Healthcare Address [address] [place] [address] Care Team Providers Care Public Speaking Teacher Name Role Phone No, Physician Primary Care Provider [phone] Encounter Details Date Type Department Care Team (Late st Contact Info) Description 09/27/2020 9:21 PM CDT Anesthesia Event [address] [id number] Suzy Cantor MD [address] [place] [address] Liseth Sebastian MD [address] [place] [address] Anesthesia Record Procedure Summary Procedure Name Responsible Anesthesiologist Anesthesia Start Time Anesthesia Stop Time Labor Analgesia Suzy Cantor MD 09/27/20212009/28/20 0539 Events Date Time Event Comment 09/27/20202114 An Start 2120 Time out - Regional 2120 Face Time 2120 An Block Induction The patie nt was reevaluated immediately before moderate or deep sedation and before anesthesia induction. 9 Epidural Placed 09/28/2020 0400 Epidural to 0407 An Start Data 0409 Left Uterine Displacement 0412 an alva now 0428 Anesthesia Ready 0437 Uterine Incision 0440 Baby Delivered 0442 Placenta 0520 Quick Note Vitals inaccura te as patient has arm bent to hold baby, pulse ox and BP on same arm 05 Epidural removed 05 an stop data 05 Quick Note Epidural remove d blue tip intact 0539 Handoff to RN I completed my handoff to the receiving nurse during which we: 1. Patient identified 2. Responsible provider identified 3. Pertinent medical history reviewed 4. Procedure type and surgical course discussed 5. Intraoperative anesthetic management and any significant issues discussed 6. Expectations and concerns for postop period discussed 7. Questions solicited from receiving nurse 8. Patient disposition at the time of handoff: patient's room 0539 An Stop Meds Name Total epinePHRINE 1:200,000-lidocaine 1.5 % 3 mL epinePHRINE 1:200,000- lidocaine 2 % 20 mL phenylephrine 100 mcg/mL 100 mcg fentaNYL-bupivacaine preserv ative free in 0.9% sodium chloride 2 mcg/mL- 0.1 % cassette (premix) 15 mL lidocaine 1 % PF 6 mL phenylephrine infusion 1.17 mg oxytocin 3 Units oxytocin (PITOCIN) 30 Units in Lactated Ringer's (LR) 500 mL (0.06 Units/mL) infusion 87.73 milliunits ketorolac 30 mg ondansetron PF (ZOFRAN) 2 mg/mL injectio n 4 mg famotidine PF 20 mg ceFAZolin 2,000 mg azithromycin 500 mg/250 mL 500 mg morphine (PF) 1 mg/ml 3 mg bupivacaine (MARCAINE) 10 mL in sodium c hloride 0.9% 20 mL epidural 10 mL LR 1,200 mL * Agents Name O2% N2O * Blood No blood administrations on file. Lines, Drains, and Airways Type Details Placement Removal Peripheral IV Placement Date: 09/27/20; Placement Time: 105; Catheter Size: 20 G; Orientation: Left, Posterior; Location: Hand; Site Prep: Chlorhexidine; Technique: Anatomical landmarks; Inserted by: Josephine MELO; Insertion Attempts: 2; Patient Tolerance: Tolerated well; Removal Date: 09/29/20; Removal Time: 1553; Removal Reason: Per order 09/27/20 1050 by Maicol Thakur RN 09/29/20 1554 by Vesta El RN Epidural Placement Date: 09/27/20; Placement Time: 2157 (created via procedure documentation); 09/28/20; [id number] by Christen Butterfield MD 09/28/20521 by Christen Butterfield MD Urethral Catheter Placement Date: 09/28/20; Placement Time: 314; Inserted by: KAMERON Gomez; Type: Non-latex; Size: 16 Fr.; Balloon Size: 10 mL; Urine Returned: Yes; Removal Date: 09/28/20; Removal Time: 1699; Removal Reason: Per protocol 09/28/20314 by Nicole Gomez RN 09/28/201699 by Kike Duncan RN documented in this encounter Social History [...] of Binge Drinking Not on file 08/11 Hiko Depression Scale Answer Date Recorded Hiko Depression Scale Total 0 07/05/2020 The thought of harming myself has occurred to me . Never 07/05/2020 Comments Yes Sex and Gender Information Value Date Recorded Sex Assigned at Not on file Legal Sex Female 8:40 PM [employer]S CATAL[employer] Gender Identity Female 12/02/2022 6:55 PM CDT Sexual Orientation Straight 12/02/2022 6: 55 PM CDT documented as of this encounter OR Notes * Anesthesia Postprocedure Evaluation - Bo Maguire CRNA - 09/29/2020 8:01 AM CDT Patient: Steve Shi Procedure Summary Date: 09/27/20 Room / Location: Anesthesia Start: 2120 Anesthesia Stop: 09/28/20538 Procedure: Labor Analgesia Diagnosis: Scheduled Providers: Responsible Provider: Suzy Cantor MD Anesthesia Type: epidural ASA Status: 1 Anesthesia Type: epidural Last vitals BP 101/57 Pulse 60 Temp 36.8 ??C (98.2 ??F) (Oral) Resp 18 SpO2 99% Anesthesia Post Evaluation Patient location during evaluation: floor Patient participation: complete - patient participated Level of consciousness: fully awake Pain management: adequate Airway patency: adequate Cardiovascular status: acceptable Respiratory status: acceptable Hydration status: acceptable Pt is: normothermic Nausea/Vomiting status: none Comments: Lower extremity sensation and strength return to baseline. No complications documented. * Anesthesia Procedure Notes - Christen Sommer MD - 09/27/2020 9:57 PM CDTAssociated Order(s): Epidural Block Epidural Block Patient location: L&D Reason for block: labor analgesia Staff: Supervising provider: Suzy Cantor MD Placed by: Resident: Christen Sommer MD Procedure prep: Preprocedure checklist: patient identified, procedure contraindications assessed, procedure consentobtained, surgical consent, IV checked, risks, benefits and alternatives discussed, monitors and equipment checked and timeout performed Patient Position: sitting Procedure performed while patient: awake Monitoring: ECG, oximetry and blood pressure Supplemental oxygen: nasal cannula Prep solution: chlorhexadine/alcohol PPE: provider hat/mask, sterile gloves and sterile drape Epidural: Approach: midline Imaging guidance used: no Number of attempts:1 Epidural needle: Injection technique: JACKLYN saline Needle type: Tuohy Needle length: 9 cm Loss of resistance: 6 cm Catheter: Catheter type: multi-orifice. Catheter at skin depth: 11 cm Negative aspiration of blood: no Negative aspiration of CSF: no Test dose: negative Assessment: Sensory level - left: full eval pending Sensory level - right: full eval pending Events: patient tolerated procedure well with no complications * Anesthesia Preprocedure Evaluation - Suzy Cantor MD - 09/27/2020 9:21 AM CDT Images from the original note were not included. Anesthesia Evaluation Steve Shi is a 25 y.o. at 40w0d here for IOL. * No procedures listed * * No Diagnosis Codes entered * HISTORY HPI Healthy 25-year-old at 40w0d who presents for IOL. Her has been complicated by depression, VZV NI, and IUGR which appears to have resolved based on most recent estimates. She has a sister with TOF - normal echo. Past Medical History Neurological Neuro/Psych system: negative Cardiovascular Cardiac system: negative Respiratory Respiratory system: negative Hepatic / Heme Hepatic/Heme system: negative Gastrointestinal + GERD Renal / Renal/ system: negative Musculoskeletal/Pain Musculoskeletal/Pain system: negative Endocrine / Other + Obesity (BMI >30) Functional Capacity Functional capacity: 4-6 METs Review of Systems Pertinent negatives: fever; easy bruising and bleeding problems Patient Active Problem List Diagnosis ??? Encounter for supervision of normal in first trimester ??? Family Hx Congenital Heart Disease ??? Tobacco use ??? Marijuana use/Hx ecstasy use ??? Depression ??? Resolved IUGR ??? Maternal varicella, non-immune ??? Encounter for induction of labor Past Medical History: Diagnosis Date ??? Depression ??? Urinary tract infection Past Surgical History: Procedure Laterality Date ??? EAR SURGERY OB History 1 Para Term AB Living SAB TAB Ectopic Multiple Live Births No Known Allergies Taking? Last Dose Start Date End Date Provider doxylamine (UNISOM) 25 mg tablet -- -- Breezy Jeffery MD nicotine (NICODERM CQ) 7 mg () 04/04/20 05/04/[address] 1 patch on the skin daily ondansetron ODT (ZOFRAN-ODT) 4 mg disintegrating tablet 04/04/20 -- An Leigh MD Take 1 tablet (4 mg total) by mouth every 8 (eight) hours as needed for nausea or vomiting 28 mg iron- 800 mcg tablet 03/06/20 -- Breezy Jeffery MD pyridoxine (VITAMIN B6) 25 mg tablet -- -- Breezy Jeffery MD sertraline (ZOLOFT) 50 mg tablet 04/04/20 10/01/20 An Leigh MD Take 1 tablet (50 mg total) by mouth daily terconazole (TERAZOL 3) 80 mg vaginal suppository -- -- Breezy Jeffery MD Current Facility-Administered Medications: ??? carboprost (HEMABATE) injection 250 mcg, 250 mcg, intramuscular, Once PRN ??? Lactated Ringer's (LR) bolus 1,000 mL, 1,000 mL, intravenous, TID PRN ??? lidocaine PF (XYLOCAINE) 10 mg/mL (1 %) preservative free injection 100 mg, 10 mL, infiltration, Once PRN ??? loperamide (IMODIUM) capsule 2 mg, 2 mg, oral, Once PRN ??? methylergonovine (METHERGINE) injection 0.2 mg, 0.2 mg, intramuscular, Once PRN ??? miSOPROStol (CYTOTEC) split tablet 25 mcg, 25 mcg, vaginal, Once ??? miSOPROStoL (CYTOTEC) tablet 800 mcg, 800 mcg, rectal, Once PRN ??? ondansetron ODT (ZOFRAN-ODT) disintegrating tablet 4 mg, 4 mg, oral, Q6H PRN OR ondansetron(ZOFRAN) injection 4 mg, 4 mg, intravenous, Q6H PRN ??? oxytocin (PITOCIN) injection 10 Units, 10 Units, intramuscular, Once PRN ??? sodium chloride 0.9% flush 0.5-20 mL, 0.5-20 mL, intra-catheter, Q8H KASIE ??? sodium chloride 0.9% flush 0.5-20 mL, 0.5-20 mL, intra-catheter, PRN ??? terbutaline (BRETHINE) injection 0.125 mg, 0.125 mg, intravenous, Once PRN OR terbutaline (BRETHINE) injection 0.25 mg, 0.25 mg, subcutaneous, Once PRN ??? tranexamic acid (CYKLOKAPRON) 1,000 mg/100 mL (10 mg/mL) in sodium chloride (premix) 1,000 mg, 1,000 mg, intravenous, Once PRN Social History Tobacco Use Smoking Status Former Smoker ??? Packs/day: 0.05 Smokeless Tobacco Never Used Tobacco Comment working on quiting Substance and Sexual Activity Alcohol Use No Substance and Sexual Activity Drug Use Yes ??? Types: Marijuana Comment: not used in a while per pt Family History Problem Relation Age of Onset ??? Other Father Alive and well; ??? Asthma Mother Asthma; ??? Allergies Maternal Grandmother Allergies; Vitals: 09/27/20 0905 09/27/20 0910 BP: 119/74 Pulse: 84 71 SpO2: 99% 99% PT: No results found for requested labs within last 720 hours. INR: No results found for requested labs within last 720 hours. APTT: No results found for requested labs within last 720 hours. Hgb A1C: No results found for requested labs within last 720 hours. CBC RBC: No results found for requested labs within last 720 hours. RDW: No results found for requested labs within last 720 hours. MCHC: No results found for requested labs within last 720 hours. MCH: No results found for requested labs within last 720 hours. MCV: No results found for requested labs within last 720 hours. Hct: No results found for requested labs within last 720 hours. Hgb: No results found for requested labs within last 720 hours. WBC: No results found for requested labs within last 720 hours. MPV: No results found for requested labs within last 720 hours. Platelets: No results found for requested labs within last 720 hours. RDW CV: No results found for requested labs within last 720 hours. RDW Sd: No results found for requested labs within last 720 hours. BMP Glucose: No results found for requested labs within last 720 hours. Calcium: No results found for requested labs within last 720 hours. Sodium: No results found for requested labs within last 720 hours. Potassium: No results found for requested labs within last 720 hours. CO2: No results found for requested labs within last 720 hours. Chloride: No results found for requested labs within last 720 hours. BUN: No results found for requested labs within last 720 hours. Creatinine: No results found for requested labs within last 720 hours. DOS Physical Exam Medical history, medications, and allergies reviewed. Attestation: This PAT evaluation Airway Exam: Mallampati: III Cervical ROM: FROM TM distance: >4 Jaw ROM: full Cardiovascular Exam: Rate: bradycardia Rhythm: regular Pulmonary Exam: LCTA, bilat EENT Exam: trachea midline Dental Exam: Appears intact Skin Exam: Skin is warm. Current state: Patient's current state is cooperative. Anesthesia Plan ASA 1 My patient is approved for the Anesthesia Controlled Medication protocol when under care of a COMPUTER SYSTEMS ADMINISTRATOR Planned anesthesia: Epidural Postoperative Plan: Postoperative administration opioids intended. No postoperative mechanical ventilation intended. Patient's planned disposition post procedure is Floor. Informed Consent: Discussed plan with attending. Anesthesia plan and risks discussed with patient. Plan and Consent Comments: Discussed risks, benefits, alternatives to neuraxial analgesia, including but not limited to hypotension, PDPH, risk of prolonged or permanent numbness/weakness/paralysis, bleeding, infection, and possible need to convert to GETA. Pt voiced understanding and acceptance of risks and a desire to proceed with labor neuraxial analgesia. Consent and Attending signature: I and/or my designee have discussed the anesthesia plan, benefits, possible alternatives, parental presence at time of induction (if indicated), and clinically relevant risks that may include dental injury, unintentional awareness, and/or other complications. The patient and/or parent/legal guardian understand, and agree to proceed. All questions answered. * Anesthesia Preprocedure Evaluation - Liseth Sebastian MD - 09/27/2020 8:50 AM CDT Images from the original note were not included. Anesthesia Evaluation Steve Shi is a 25 y.o. female * No procedures listed * * No Diagnosis Codes entered * HISTORY HPI Pt w/ hx of depression here for induction of labor Past Medical History Neurological + Psychiatric history - depression Pertinent negatives: seizures; CVA/stroke and TIA Cardiovascular Pertinent negatives: hypertension ; CAD ; [place] ; pacemaker/ICD and hyperlipidemia Respiratory Pertinent negatives: COPD and asthma Hepatic / Heme Pertinent negatives: liver disease Renal / Pertinent negatives: renal disease Musculoskeletal/Pain Pertinent negatives: chronic pain Endocrine / Other Pertinent negatives: transplanted organ Functional Capacity Functional capacity: 4-6 METs Day of Surgery assessments + Possibility of assessed - known to be . Review of Systems Pertinent negatives: productive cough; wheezing; fever; chest pain; bleeding problems; syncope; chronic pain and chipped/loose teeth PAT Summary and Plans Additional comments: . Patient Active Problem List Diagnosis Encounter for supervision of normal in first trimester Family Hx Congenital Heart Disease Tobacco use Marijuana use/Hx ecstasy use Depression Resolved IUGR Maternal varicella, non-immune Encounter for induction of labor Past Medical History: Diagnosis Date Depression Urinary tract infection Past Surgical History: Procedure Laterality Date EAR SURGERY OB History 1 Para Term AB Living SAB TAB Ectopic Multiple Live Births No Known Allergies Taking? Last Dose Start Date End Date Provider doxylamine (UNISOM) 25 mg tablet -- -- Breezy Jeffery MD nicotine (NICODERM CQ) 7 mg () 04/04/20 05/04/[address] 1 patch on the skin daily ondansetron ODT (ZOFRAN-ODT) 4 mg disintegrating tablet 04/04/20 -- An Leigh MD Take 1 tablet (4 mg total) by mouth every 8 (eight) hours as needed for nausea or vomiting 28 mg iron- 800 mcg tablet 03/06/20 -- Breezy Jeffery MD pyridoxine (VITAMIN B6) 25 mg tablet -- -- Breezy Jeffery MD sertraline (ZOLOFT) 50 mg tablet 04/04/20 10/01/20 An Leigh MD Take 1 tablet (50 mg total) by mouth daily terconazole (TERAZOL 3) 80 mg vaginal suppository -- -- Breezy Jeffery MD Current Facility-Administered Medications: carboprost (HEMABATE) injection 250 mcg, 250 mcg, intramuscular, Once PRN Lactated Ringer's (LR) bolus 1,000 mL, 1,000 mL, intravenous, TID PRN lidocaine PF (XYLOCAINE) 10 mg/mL (1 %) preservative free injection 100 mg, 10 mL, infiltration, Once PRN loperamide (IMODIUM) capsule 2 mg, 2 mg, oral, Once PRN methylergonovine (METHERGINE) injection 0.2 mg, 0.2 mg, intramuscular, Once PRN miSOPROStoL (CYTOTEC) tablet 800 mcg, 800 mcg, rectal, Once PRN ondansetron ODT (ZOFRAN-ODT) disintegrating tablet 4 mg, 4 mg, oral, Q6H PRN OR ondansetron (ZOFRAN) injection 4 mg, 4 mg, intravenous, Q6H PRN oxytocin (PITOCIN) injection 10 Units, 10 Units, intramuscular, Once PRN sodium chloride 0.9% flush 0.5-20 mL, 0.5-20 mL, intra-catheter, Q8H KASIE sodium chloride 0.9% flush 0.5-20 mL, 0.5-20 mL, intra-catheter, PRN terbutaline (BRETHINE) injection 0.125 mg, 0.125 mg, intravenous, Once PRN OR terbutaline (BRETHINE) injection 0.25 mg, 0.25 mg, subcutaneous, Once PRN tranexamic acid (CYKLOKAPRON) 1,000 mg/100 mL (10 mg/mL) in sodium chloride (premix) 1,000 mg, 1,000 mg, intravenous, Once PRN Social History Tobacco Use Smoking Status Former Smoker Packs/day: 0.05 Smokeless Tobacco Never Used Tobacco Comment working on quiting Substance and Sexual Activity Alcohol Use No Substance and Sexual Activity Drug Use Yes Types: Marijuana Comment: not used in a while per pt Family History Problem Relation Age of Onset Other Father Alive and well; Asthma Mother Asthma; Allergies Maternal Grandmother Allergies; PAT Physical Exam Airway Exam: Cervical ROM: FROM TM distance: >4 Jaw ROM: full Cardiovascular Exam: Rate: regular Rhythm: regular Negative for Murmur Pulmonary Exam: LCTA, bilat EENT Exam: trachea midline Dental Exam: Appears intact Skin Exam: Skin is warm. Abdominal exam: (gravid) Current state: Patient's current state is cooperative. Additional comments: Discussed risks, benefits, alternatives to neuraxial anesthesia, including butnot limited to PDPH, risk of prolonged or permanent numbness/weakness/paralysis, nausea, aspiration, bleeding, infection, possible need to convert to GETA. Pt voiced understanding and acceptance of risks and a desire to proceed with labor neuraxial anesthesia. There were no vitals filed for this visit. PT: No results found for requested labs within last 720 hours. INR: No results found for requested labs within last 720 hours. APTT: No results found for requested labs within last 720 hours. Hgb A1C: No results found for requested labs within last 720 hours. CBC RBC: No results found for requested labs within last 720 hours. RDW: No results found for requested labs within last 720 hours. MCHC: No results found for requested labs within last 720 hours. MCH: No results found for requested labs within last 720 hours. MCV: No results found for requested labs within last 720 hours. Hct: No results found for requested labs within last 720 hours. Hgb: No results found for requested labs within last 720 hours. WBC: No results found for requested labs within last 720 hours. MPV: No results found for requested labs within last 720 hours. Platelets: No results found for requested labs within last 720 hours. RDW CV: No results found for requested labs within last 720 hours. RDW Sd: No results found for requested labs within last 720 hours. BMP Glucose: No results found for requested labs within last 720 hours. Calcium: No results found for requested labs within last 720 hours. Sodium: No results found for requested labs within last 720 hours. Potassium: No results found for requested labs within last 720 hours. CO2: No results found for requested labs within last 720 hours. Chloride: No results found for requested labs within last 720 hours. BUN: No results found for requested labs within last 720 hours. Creatinine: No results found for requested labs within last 720 hours. documented in this encounter Plan of Treatment Not on file documented as of this encounter Procedures Procedure Name Priority Date/Time Associated Diagnosis Comments ANESTHESIA EPIDURAL BLOCK Routine 09/27/2020 9:57 PM CDT documented in this encounter Results * Epidural Block (09/27/2020 9:57 PM CDT) Narrative Christen Sommer MD - 09/27/2020 9:57 PM CDT Christen Sommer MD ? 09/27/2020 ??9:58 PM Epidural Block Patient location: L&D Reason for block: labor analgesia Staff: Supervising provider: Suzy Cantor MD Placed by: Resident: Christen Sommer MD Procedure prep: Preprocedure checklist: patient identified, procedure contraindications assessed, procedure consent obtained, surgical consent, IV checked, risks, benefits and alternatives discussed, monitors and equipment checked and timeout performed Patient Position: sitting Procedure performed while patient: awake Monitoring: ECG, oximetry and blood pressure Supplemental oxygen: nasal cannula Prep solution: chlorhexadine/alcohol PPE: provider hat/mask, sterile gloves and sterile drape Epidural: Approach: midline Imaging guidance used: no Number of attempts:1 Epidural needle: Injection technique: JACKLYN saline Needle type: Tuohy Needle length: 9 cm Loss of resistance: 6 cm Catheter: Catheter type: multi-orifice. Catheter at skin depth: 11 cm Negative aspiration of blood: no Negative aspiration of CSF: no Test dose: negative Assessment: Sensory level - left: full eval pending Sensory level - right: full eval pending Events: patient tolerated procedure well with no complications us Christen Butterfield MD ANESTHESIA ORDERABLE S Final Result documented in this encounter Visit Diagnoses Not on filedocumented in this encounter Administered Medications Inactive Administered Medications - up to 3 most recent administrations Medication Order MAR Action Action Date Dose Rate Site azithromycin (ZITHROMAX) 500 mg/250 mL in sodium chloride 0.9% (premix) intravenous, Administer over 60 Minutes, As needed, Starting on Thu09/28/20 at 0407, Anesthesia Intra-op Given 09/28/2020 4:07 AM CDT 500 mg bupivacaine (MARCAINE) 10 mL in sodium chloride 0.9% 20 mL epidural intrathoracic, Continuous PRN, Starting on Thu09/28/20 at 0458, Anesthesia Intra-op Bolus 09/28/2020 5:03 AM CDT 5 mL New Bag 09/28/2020 4:58 AM CDT 5 mL ceFAZolin (ANCEF) injection intravenous, Administer over 3 Minutes, As needed, Starting on Thu09/28/20 at 0407, Anesthesia Intra-op Given 09/28/2020 4:07 AM CDT 2,000 mg famotidine (PEPCID) injection intravenous, Administer over 2 Minutes, As needed, Starting on Thu09/28/20 at 0410, Anesthesia Intra-op Given 09/28/2020 4:10 AM CDT 20 mg fentaNYL-bupivacaine preservative free in 0.9% sodium chloride [...] Given 09/27/2020 9:47 PM CDT 10 mL ketorolac (TORADOL) injection intravenous, As needed, Starting on Thu09/28/20 at 0504, Anesthesia Intra-op Given 09/28/2020 5:04 AM CDT 30 mg Lactated Ringer's (LR) infusion intravenous, Continuous PRN, Starting on Thu09/28/20 at 0407, Anesthesia Intra-op New Bag 09/28/2020 4:58 AM CDT New Bag 09/28/2020 4:07 AM CDT lidocaine PF (XYLOCAINE) 10 mg/mL (1 %) preservative free injection infiltration, As needed, Starting on Mare 09/27/20 at 2126, Anesthesia Intra-op Given 09/27/2020 9:32 PM CDT 3 mL Given 09/27/2020 9:26 PM CDT 3 mL lidocaine-EPINEPHrine (XYLOCAINE with EPI) 1.5 %-1:200,000 preservative free injection epidural, As needed, Starting on Mare 09/27/20 at 2141, Anesthesia Intra-op, Indications: Administration of Local AnesthesiaIndications:Administration of Local Anesthesia Given 09/27/2020 9:41 PM CDT 3 mL lidocaine-EPINEPHrine (XYLOCAINE with EPI) 2 %-1:200,000 preservative free injection epidural, As needed, Starting on Thu09/28/20 at 0423, Anesthesia Intra-op, Indications: Administration of Local AnesthesiaIndications:Administration of Local Anesthesia Given 09/28/2020 4:23 AM CDT 5 mL Given 09/28/2020 4:13 AM CDT 5 mL Given 09/28/2020 4:00 AM CDT 10 mL morphine preservative free injection epidural, Administer over 4 Minutes, As needed, Starting on Thu09/28/20 at 0445, Anesthesia Intra-op Given 09/28/2020 4:45 AM CDT 3 mg ondansetron (ZOFRAN) injection intravenous, Administer over 2 Minutes, As needed, Starting on Thu09/28/20 at 0410, Anesthesia Intra-op Given 09/28/2020 4:10 AM CDT 4 mg oxytocin (PITOCIN) 30 Units in Lactated Ringer's (LR) 500 mL (0.06 Units/mL) infusion intravenous, Continuous PRN, Starting on Thu09/28/20 at 0448, Anesthesia Intra-op New Bag 09/28/2020 4:43 AM CDT 94 milliunits/hr 1.567 mL/hr oxytocin (PITOCIN) injection intravenous, As needed, Starting on Thu09/28/20 at 0439, Anesthesia Intra-op Given 09/28/2020 4:40 AM CDT 3 Units phenylephrine (LEDY-SYNEPHRINE) 1 mg/10 mL (100 mcg/mL) in sodium chloride 0.9% (premix) intravenous, As needed, Starting on Mare 09/27/20 at 2159, Anesthesia Intra-op Given 09/27/2020 9:59 PM CDT 100 mcg phenylephrine (LEDY-SYNEPHRINE) 5 mg/50 mL (100 mcg/mL) in sodium chloride 0.9% (premix) intravenous, Continuous PRN, Starting on Thu09/28/20 at 0429, Anesthesia Intra-op Rate/Dose Change 09/28/2020 5:05 AM CDT 0.1 mcg/kg/min 5.718 mL/hr Rate/Dose Change 09/28/2020 4:51 AM CDT 0.2 mcg/kg/min 11. 436 mL/hr Rate/Dose Change 09/28/2020 4:49 AM CDT 0.3 mcg/kg/min 17. 154 mL/hr documented in this encounter Orders Medications Ordered That Alex ht Not Have Been Administered Count Last Ordered Date First Ordered Date ePHEDrine injection 1 09/28/2020 documented in this encounter Care Teams Public Speaking Teacher Relationship Specialty Start Date End Date No, Physician PCP - General 11/01/16 documented as of this encounter
--- OUTSIDE RECORDS SUMMARY | 2024-04-02 11:55 | XMS_ITS | Encounter Summary ---
Author Organization [facility] Healthcare Address [address] [place] [address] Care Team Providers Care Sap Fico Business Analyst Name Role Phone No, Physician Primary Care Provider [phone] Reason for Referral * Diagnostic Imaging (Routine) - Closed Specialty Diagnoses / Procedures Referred By Contac t Referred To Contact Diagnoses Poor growth affecting management of mother in third trimester, single or unspecified fetus Procedures US Ob Follow Up An Diaz MD [address] [facility] [address] [address] [place] [address] Phone: tel: fax: [address] [phone] Referral ID Status Reason Start Date Expiration Date Visits Re quested Visits Authorized [id number] Closed 07/05/2020 08/04/2021 1 1 Reason for Visit * Diagnostic Imaging (Routine) - Closed Specialty Diagnoses / Procedures Referred By Contac t Referred To Contact Diagnoses Poor growth affecting management of mother in third trimester, single or unspecified fetus Procedures US Ob Follow Up An Diaz MD [address] [facility] [place] [address] [address] [place] [address] Phone: tel: fax: [address] [phone] Referral ID Status Reason Start Date Expiration Date Visits Re quested Visits Authorized [id number] Closed 07/05/2020 08/04/2021 1 1 Encounter Details Date Type Department Care Team (Latest Contact Info) Description 07/26/2020 1:15 PM CDT - 07/26/2020 11:59 PM CDT Hospital Encounter [facility] [address] [facility] [place] [address] Giuliana Crisostomo MD [address] [facility] [phone] [place] [address] Ltey Calderon MD [address] [facility] [place] [address] [address] [place] [address] Poor growth affecting management of mother in third trimester, single or unspecified fetus Discharge Disposition: Discharge to home or self care Social History Tobacco Use Types Packs/Day Years Used Date Smoking Tobacco: Former Cigarettes Smokeless Tobacco: Never Alcohol Use Standard Drinks/Week Comments No 0 (1 standard drink = 0.6 oz pur e alcohol) AUDIT-C Answer Date Recorded Q1: How often do you have a drink containing alc ohol? Never 07/22/2020 Average Number of Drinks Not on file 021 Frequency of Binge Drinking Not on file 07/12 [place] Depression Scale Answer Date Recorded [place] Depression Scale Total 0 07/05/2020 The thought of harming myself has occurred to me . 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 Gender Identity Female 12/02/2022 6:55 PM CDT Sexual Orientation Straight 12/02/2022 6: 55 PM CDT documented as of this encounter Medications at Time of Discharge doxylamine (UNISOM) 25 mg tablet Take 25 mg by mouth 3 (three) times a day nicotine (NICODERM CQ) [address] 1 patch on the skin daily 30 patch 04/04/2020 07/02/202 1 ondansetron ODT (ZOFRAN-ODT) 4 mg disintegrating tablet Take 1 tablet (4 mg total) by mouth every 8 (eight) hours as needed for nausea or vomiting 20 tablet 5 04/04/2020 1 polyethylene glycol (MIRALAX) 17 gram/dose powder Take 17 g by mouth daily 510 g 02/03/2020 4 28 mg iron- 800 mcg tablet Take 1 tablet by mouth daily 03/06/2020 1 pyridoxine (VITAMIN B6) 25 mg tablet Take 25 mg by mouth 3 (three) times a day 1 sertraline (ZOLOFT) 50 mg tabletIndications:An xiety with Depression Take 1 tablet (50 mg [...] UP Schedule Routine, Read Routine (OP Routine) 07/26/2020 3:04 PM CDT Poor growth affecting management of mother in third trimester, single or unspecified fetus documented in this encounter Results * US Ob Follow Up (07/26/2020 3:04 PM CDT) Fetus# Fetus1 VIEWPOINT Placenta Details anterior, Previa-no VIEWPOINT Estimated Weight 1,548 g&grams VIEWPOINT Presentation Vertex VIEWPOINT Anatomical Region Laterality Modality Abdomen N/A Ultrasound 07/26/2020 3:26 PM CDT us An Diaz MD IMG OB US PROCEDURES Final Result documented in this encounter Visit Diagnoses Diagnosis Poor growth affecting management of mother in third trimester, single or unspecified fetus documented in this encounter Care Teams Sap Fico Business Analyst Relationship Specialty Start Date End Date No, Physician PCP - General 11/01/16 documented as of this encounter
--- OUTSIDE RECORDS SUMMARY | 2024-04-02 11:55 | XMS_ITS | Encounter Summary ---
Author Organization [facility] Healthcare Address [address] [place] [address] Care Team Providers Care Improvement Coordinator Name Role Phone No, Physician Primary Care Provider [phone] Reason for Visit * Reason Onset Date Comments Incoming Call 07/17/2020 Not feeli ng her baby move much today Encounter Details Date Type Department Care Team (Late st Contact Info) Description 07/17/2020 Nurse Triage [address] [address] Emely Ribeiro RN Social History Tobacco Use Types Packs/Day Years Used Date Smoking Tobacco: Never Smokeless Tobacco: Never Alcohol Use Standard Drinks/Week Comments No 0 (1 standard drink = 0.6 oz pur e alcohol) [place] Depression Scale Answer Date Recorded [place] Depression Scale Total 0 07/05/2020 The thought of harming myself has occurred to me . Never 07/05/2020 Comments Yes Sex and Gender Information Value Date Recorded Sex Assigned at Not on file Legal Sex Female 8:40 PM STONE DRILLER Gender Identity Female 12/02/2022 6:55 PM CDT Sexual Orientation Straight 12/02/2022 6: 55 PM CDT documented as of this encounter Miscellaneous Notes * Telephone Encounter - Emely Ribeiro RN - 07/17/2020 4:41 PM CDT 1405: Patient called stating that she has not felt her baby move as much today. Reports that [facility] for a non- stress test. States she was told by the nurse, that if her baby was moving less today she should come in to be seen. Asked if patient had done a kick count. Patient stated she is at work and has not done a kick count. 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 She denies any pain or contractions. She has just eaten lunch and states she has felt a couple of kicks since then. She has had a total of 480 ml of water so far today. Asked if she can leave work and go home to do a kick count. She should lie on her side, drink some water, and pay attention to how many times her baby moves in one hour. The baby should move 10 times in one hour. If the baby does not move 10 times in one hour, she should have another snack, drink some more water, and count how many times the baby moves in the second hour. If the baby still is not moving 10 times in an hour, then she needs to call back/come in to be seen. Patient states she is going to talk to her tobacco warehouse manager, and will try to go home to do kick counts. If the patient is not able to do this, then she needs to be seen. Patient indicates that she understands this information. Reason for Disposition ??? 23 or more weeks and baby moving less today AND willing to perform kick count ??? 20 or more weeks and has felt baby move in past 8 hours Answer Assessment - Initial Assessment Questions 1. MOVEMENT: Has the baby's movement decreased or changed significantly from normal? (e.g.,yes, no; describe) Yes, patient stating she has not felt her baby move much today 2. ESTUARDO: What date are you expecting to deliver? 09/27/2020 3. : How many weeks are you? 29 weeks 5 days 4. OTHER SYMPTOMS: Do you have any other symptoms? (e.g., abdominal pain, leaking fluid from vagina, vaginal bleeding, etc.) Denies Protocols used: - DECREASED [id number] documented in this encounter Plan of Treatment Not on file documented as of this encounter Visit Diagnoses Not on filedocumented in this encounter Care Teams Improvement Coordinator Relationship Specialty Start Date End Date No, Physician PCP - General 11/01/16 documented as of this encounter
--- OUTSIDE RECORDS SUMMARY | 2024-04-02 11:55 | XMS_ITS | Encounter Summary ---
Author Organization [facility] Healthcare Address [address] [place] [address] Care Team Providers Care Marble Helper Name Role Phone No, Physician Primary Care Provider [phone] Reason for Referral * Diagnostic Imaging (Routine) - Closed Specialty Diagnoses / Procedures Referred By Riaz harvye Referred To Contact Diagnoses Poor growth affecting management of mother in third trimester, single or unspecified fetus Procedures US Biophysical Profile WO Test An Diaz MD [address] [facility] [address] [address] [place] [address] Phone: tel: fax: [facility] (All Locations) Referral ID Status Reason Start Date Expiration Date Visits Re quested Visits Authorized [id number] Closed 07/11/2020 10/10/2020 8 8 Reason for Visit * Diagnostic Imaging (Routine) - Closed Specialty Diagnoses / Procedures Referred By Riaz harvey Referred To Contact Diagnoses Poor growth affecting management of mother in third trimester, single or unspecified fetus Procedures US Biophysical Profile WO Test An Diaz MD [address] [facility] [address] [address] [place] [address] Phone: tel: fax: [facility] (All Locations) Referral ID Status Reason Start Date Expiration Date Visits Re quested Visits Authorized [id number] Closed 07/11/2020 10/10/2020 8 8 Encounter Details Date Type Department Care Team (Latest Contact Info) Description 07/19/2020 1:30 PM CDT - 07/19/2020 11:59 PM CDT Hospital Encounter [facility] [address] [facility], 7th Floor, [address] [place] [address] Giuliana Crisostomo MD [address] [facility] [phone] [place] [address] An Diaz MD [address] [facility] [place] [address] [address] [place], [place] [id number] Poor growth affecting management of mother in third trimester, single or unspecified fetus Discharge Disposition: Discharge to home or self care Social History Tobacco Use Types Packs/Day Years Used Date Smoking Tobacco: Never Smokeless Tobacco: Never Alcohol Use Standard Drinks/Week Comments No 0 (1 standard drink = 0.6 oz pur e alcohol) [place] Depression Scale Answer Date Recorded [place] Depression Scale Total 0 07/05/2020 The thought of harming myself has occurred to me . 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 Gender Identity Female 12/02/2022 6:55 PM CDT Sexual Orientation Straight 12/02/2022 6: 55 PM CDT documented as of this encounter Medications at Time of Discharge doxylamine (UNISOM) 25 mg tablet Take 25 mg by mouth 3 (three) times a day 1 nicotine (NICODERM CQ) [address] 1 patch on the skin daily 30 patch 04/04/2020 1 ondansetron ODT (ZOFRAN-ODT) 4 mg disintegrating [...] TEST Schedule Routine, Read Routine (OP Routine) 07/19/2020 1:41 PM CDT Poor growth affecting management of mother in third trimester, single or unspecified fetus documented in this encounter Results * US Biophysical Profile WO Test (07/19/2020 1:41 PM CDT) Fetus# Fetus1 VIEWPOINT Placenta Details posterior, Previa-no, no placental masses VIEWPOINT Presentation Vertex VIEWPOINT Anatomical Region Laterality Modality N/A Ultrasound 07/19/2020 1:42 PM CDT us An Diaz MD IMG OB US PROCEDURES Final Result documented in this encounter Visit Diagnoses Diagnosis Poor growth affecting management of mother in third trimester, single or unspecified fetus documented in this encounter Care Teams Marble Helper Relationship Specialty Start Date End Date No, Physician PCP - General 11/01/16 documented as of this encounter
--- OUTSIDE RECORDS SUMMARY | 2024-04-02 11:55 | XMS_ITS | Encounter Summary ---
Author Organization [facility] Healthcare Address [address] [place] [address] Care Team Providers Care Door Operator Name Role Phone No, Physician Primary Care Provider [phone] Encounter Details Date Type Department Care Team (Late st Contact Info) Description 05/21/2020 Telephone [facility] [address] [place] [id number] An Diaz MD [address] [facility] [address] [place] [address] Social History Tobacco Use Types Packs/Day Years Used Date Smoking Tobacco: Never Smokeless Tobacco: Never Alcohol Use Standard Drinks/Week Comments No 0 (1 standard drink = 0.6 oz pur e alcohol) [place] Depression Scale Answer Date Recorded [place] Depression Scale Total 11 04/04/2020 The thought of harming myself has occurred to me . Never 04/04/2020 Comments Yes Sex and Gender Information Value Date Recorded Sex Assigned at Not on file Legal Sex Female 8:40 PM TWIST PACKER Gender Identity Female 12/02/2022 6:55 PM CDT Sexual Orientation Straight 12/02/2022 6: 55 PM CDT documented as of this encounter Miscellaneous Notes * Telephone Encounter - An Leigh MD - 05/21/2020 8:26 AM CST Called pt and informed her of low risk NIPT result. Pt aware of TTE scheduled 05/25. An Diaz MD 05/21/2020 T PACKER documented in this encounter Plan of Treatment Not on file documented as of this encounter Visit Diagnoses Not on filedocumented in this encounter Care Teams Door Operator Relationship Specialty Start Date End Date No, Physician PCP - General 11/01/16 documented as of this encounter
--- OUTSIDE RECORDS SUMMARY | 2024-04-02 11:55 | XMS_ITS | Encounter Summary ---
Author Organization [facility] Healthcare Address [address] [place] [address] Care Team Providers Care First Aid Instructor Name Role Phone No, Physician Primary Care Provider Reason for Referral * Diagnostic Imaging (Routine) - Closed Specialty Diagnoses / Procedures Referred By Riaz harvey Referred To Contact Diagnoses Encounter for supervision of normal first in first trimester Procedures US Ob Follow Up An Diaz MD [address] [facility] [place] [address] [address] [address] Phone: tel: fax: [address] [phone] Referral ID Status Reason Start Date Expiration Date Visits Re quested Visits Authorized [id number] Closed 05/07/2020 06/06/2021 1 1 Reason for Visit * Diagnostic Imaging (Routine) - Closed Specialty Diagnoses / Procedures Referred By Riaz harvey Referred To Contact Diagnoses Encounter for supervision of normal first in first trimester Procedures US Ob Follow Up An Diaz MD [address] [place] [facility] [place] [address] [address] [address] Phone: tel: fax: [address] [phone] Referral ID Status Reason Start Date Expiration Date Visits Re quested Visits Authorized [id number] Closed 05/07/2020 06/06/2021 1 1 Encounter Details Date Type Department Care Team (Late st Contact Info) Description 07/05/2020 11:15 AM CDT - 07/05/2020 11:59 PM CDT Hospital Encounter [facility] Ul[facility]ound [address] [facility], 7th Floor, [address] [facility] [place], [place] [id number] Endy Sargent MD [address] [facility] [address] [place] [address] An Diaz MD [address] [facility] [address] [place], [place] [id number] Encounter for supervision of normal first in first trimester Discharge Disposition: Discharge to home or self care Social History Tobacco Use Types Packs/Day Years Used Date Smoking Tobacco: Never Smokeless Tobacco: Never Alcohol Use Standard Drinks/Week Comments No 0 (1 standard drink = 0.6 oz pur e alcohol) [place] Depression Scale Answer Date Recorded [place] Depression Scale Total 0 07/05/2020 The thought of harming myself has occurred to me . 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 Gender Identity Female 12/02/2022 6:55 PM CDT [...] UP Schedule Routine, Read Routine (OP Routine) 07/05/2020 11:21 AM CDT Encounter for supervision of normal first in first trimester documented in this encounter Results * US Ob Follow Up (07/05/2020 11:21 AM CDT) Fetus# Fetus1 VIEWPOINT Placenta Details posterior, Previa-no VIEWPOINT Estimated Weight 1,059 g&grams VIEWPOINT Presentation Vertex VIEWPOINT Anatomical Region Laterality Modality Abdomen N/A Ultrasound 07/05/2020 11:3 2 AM CDT us An Diaz MD IMG OB US PROCEDURES Final Result documented in this encounter Visit Diagnoses Diagnosis Encounter for supervision of normal first in first trimester documented in this encounter Care Teams First Aid Instructor Relationship Specialty Start Date End Date No, Physician PCP - General 11/01/16 documented as of this encounter
--- OUTSIDE RECORDS SUMMARY | 2024-04-02 11:55 | XMS_ITS | Encounter Summary ---
Author Organization [facility] Address [address] [place] [address] Phone Care Team Providers Care Security Rover Name Role Phone No, Physician Primary Care Provider [phone] Reason for Visit * Cardiology (Routine) - Closed Specialty Diagnoses / Procedures Referred By Riaz harvey Referred To Contact Diagnoses Encounter for supervision of normal first in first trimester Procedures Echocardiogram An Diaz MD [address] [facility] [place] [place] [address] [place] [address] Phone: tel: fax: [facility] (All Locations) Referral ID Status Reason Start Date Expiration Date Visits Re quested Visits Authorized [id number] Closed 04/04/2020 05/04/2021 1 1 Encounter Details Date Type Department Care Team (Late st Contact Info) Description 05/25/2020 11:00 AM CHEMISTRY INSTRUCTOR Office Visit [facility] Pediatric Cardiology [facility] 2nd Floor [address] [place] [address] Family Hx Congenital Heart Disease (Primary Dx) Social History Tobacco Use Types Packs/Day Years Used Date Smoking Tobacco: Never Smokeless Tobacco: Never Alcohol Use Standard Drinks/Week Comments No 0 (1 standard drink = 0.6 oz pur e alcohol) [place] Depression Scale Answer Date Recorded [place] Depression Scale Total 11 04/04/2020 The thought of harming myself has occurred to me . Never 04/04/2020 Comments Yes Sex and Gender Information Value Date Recorded Sex Assigned at Not on file Legal Sex Female 8:40 PM CHEMISTRY INSTRUCTOR Gender Identity Female 12/02/2022 6:55 PM CDT Sexual Orientation Straight 12/02/2022 6: 55 PM CDT documented as of this encounter Patient Instructions * Patient Instructions* Dale Amaro DO - 05/25/2020 11:00 AM CHEMISTRY INSTRUCTOR You were seen today at the [facility] by Dr. Dale Amaro DO. Based on the images obtained today, it appears that your baby has a structurally normal heart. No additional echocardiograms are recommended during this unless new concerns arise by your OBGYN or maternal medicine specialist. Today we discussed the limitations of any echocardiogram, which includes the inability to rule out small holes in the upper or lower chambers of the heart, mild valve abnormalities, or problemsinvolving the veins and arteries outside of the heart. In addition, there are certain cardiacstructures that are open during that normally close following delivery, but this cannot be predicted at this time. Should there be concerns about your baby following delivery, we would be happy to see and evaluate your child. Thank you for the opportunity of to let me care for you and your child. Please contact us at [phone] with questions or concerns regarding these findings or recommendations. Dale Amaro DO ISTRY INSTRUCTOR documented in this encounter Progress Notes * Dale Amaro DO - 05/25/2020 11:00 AM CST CARDIOLOGY CONSULTATION RE: Steve Shi : 1995 I had the pleasure of seeing Ms. Steve Shi for cardiac consultation today at [facility] for an initial echocardiogram at the request of Dr. Diaz. The written consultation request has been reviewed and filed in Ms. Shi's medical record. I have reviewed the medical record and the MFM/OBGYN note from 05/07/20. Ms. Shi is a 24 y.o. old, woman currently carrying a chau at approximately 221/7 weeks gestation. Her has been uncomplicated. She reports she is carrying a female fetus. She is alone. Indication: Family history of congenital heart disease, maternal sister with tetralogy of Fallot Estimated Date of Delivery: Estimated Date of Delivery: 09/27/20 Planned Date of Delivery: Estimated Date of Delivery: 09/27/20 Planned Delivery Nursery: [facility] Referral Sources: Referring OB: An Diaz Referring MFM: None Referring Sales And Catering Coordinator: None Visiting Teacher for Infant: None Genetic testing: negative Past Medical History: Past Medical History: Diagnosis Date ??? Depression Medications: Outpatient Medications Prior to Visit Medication Sig Dispense Refill ??? doxylamine (UNISOM) 25 mg tablet Take 25 mg by mouth 3 (three) times a day ??? nicotine (NICODERM CQ) [address] 1 patch on the skin daily 30 patch 0 ??? ondansetron ODT (ZOFRAN-ODT) 4 mg disintegrating tablet Take 1 tablet (4 mg total) by mouth every 8 (eight) hours as needed for nausea or vomiting 20 tablet 5 ??? 28 mg iron- 800 mcg tablet Take 1 tablet by mouth daily ??? pyridoxine (VITAMIN B6) 25 mg tablet Take 25 mg by mouth 3 (three) times a day ??? sertraline (ZOLOFT) 50 mg tablet Take 1 tablet (50 mg total) by mouth daily 30 tablet 5 ??? terconazole (TERAZOL 3) 80 mg vaginal suppository Insert 80 mg into the vagina nightly No facility-administered medications prior to visit. Allergies: No Known Allergies Family History: Maternal sister with tetralogy of Fallot. She says other more distant relatives also have congenital heart disease but the details are unknown. Social History Steve is single, the FOB is Seven Andrew. She lives in [place], [place]. 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 She denies tobacco, alcohol, or illicit drug use. Echocardiogram: Initial echocardiogram (2D, color, Doppler) performed on a 22 1/7 week single fetus ESTUARDO (09/27/20). Study quality is good. The fetus is in the vertex position. There is levocardia noted. Balanced four chamber view with qualitatively normal systolic function. Normally related great vessels. No inflow or outflow tract obstruction. No obvious VSD. No valvar regurgitation. Unobstructed aortic and ductal arches. Left aortic arch. At least 2 pulmonary veins drain normally to the LA. Normal systemic venous return. Normal heart rate, 142 bpm with 1:1 AV conduction. No pericardial effusion. Three vessel cord noted, with normal Doppler pattern. Normal ductus venosus Doppler. Impression: 1. Structurally normal heart 2. Rate appropriate for gestational age 3. Sinus rhythm observed for duration of study Discussion and Recommendations: I discussed the above findings as well as the limitations of echocardiography with Ms. Shi.Based on the images obtained during today's study, Ms. Shi appears to be carrying a fetus with a structurally normal heart. There was no evidence concerning for arrhythmia or cardiac compromise. I explained to Ms. Shi the limitations of echocardiography which includes the inability to rule out small septal defects, minor valve abnormalities, problems involving the veins and arteries outside of the heart, including aortic coarctation, and that there are certain cardiac structur es patent in utero that normally close following delivery. Based on these findings, I do not recommend further echocardiograms for Ms. Shi during this unless new concerns arise in which case I would be happy to see her again. Should there be concerns about this infant following delivery, we would be happy to consult and/or interpret anechocardiogram at that time. Disposition: Cardiology Follow-up: No follow up needed unless there are further concerns. care of the fetus: Delivery timing: There are no cardiac indications for early delivery. Delivery route: There are no cardiac indications for . care of : Special considerations for delivery: No Prostaglandin dependent?: No I spent a total of 30 minutes of which >50% of the time was spent in counseling and coordinationof care. This time included discussing the diagnosis, outcomes and clinical course after of the . Thank you for the opportunity of consultation. Please contact me at [phone] with questions or concerns regarding these findings or recommendations. Sincerely, Dale mAaro DO ISTRY INSTRUCTOR documented in this encounter Plan of Treatment Not on file documented as of this encounter Visit Diagnoses Diagnosis Family Hx Congenital Heart Disease- Primary Unspecified congenital anomaly of heart documented in this encounter Care Teams Security Rover Relationship Specialty Start Date End Date No, Physician PCP - General 11/01/16 documented as of this encounter
--- OUTSIDE RECORDS SUMMARY | 2024-04-02 11:55 | XMS_ITS | Encounter Summary ---
Author Organization [facility] Healthcare Address [address] [place] [address] Care Team Providers Care Party Chief Name Role Phone No, Physician Primary Care Provider [phone] Encounter Details Date Type Department Care Team (Late st Contact Info) Description 06/08/2020 Documentation Obstetrics and Gynecology Clinic [address] [facility] 3rd Floor [address] [place] [address] Vianey Chambers RN Social History Tobacco Use Types Packs/Day Years Used Date Smoking Tobacco: Never Smokeless Tobacco: Never Alcohol Use Standard Drinks/Week Comments No 0 (1 standard drink = 0.6 oz pur e alcohol) [place] Depression Scale Answer Date Recorded [place] Depression Scale Total 11 04/04/2020 The thought of harming myself has occurred to me . Never 04/04/2020 Comments Yes Sex and Gender Information Value Date Recorded Sex Assigned at Not on file Legal Sex Female 8:40 PM STONE SETTER METAL OPTICAL FRAMES Gender Identity Female 12/02/2022 6:55 PM CDT Sexual Orientation Straight 12/02/2022 6: 55 PM CDT documented as of this encounter Progress Notes * Vianey Chambers RN - 06/08/2020 12:54 PM CST Pt unable to make last OB visit. Message sent to schedulers for appointment with Dr. Diaz next week if available. E SETTER METAL OPTICAL FRAMES documented in this encounter Plan of Treatment Not on file documented as of this encounter Visit Diagnoses Not on filedocumented in this encounter Care Teams Party Chief Relationship Specialty Start Date End Date No, Physician PCP - General 11/01/16 documented as of this encounter
--- OUTSIDE RECORDS SUMMARY | 2024-04-02 11:55 | XMS_ITS | Encounter Summary ---
Author Organization [facility] Healthcare Address [address] [place] [address] Care Team Providers Care [place] Operator Name Role Phone No, Physician Primary Care Provider [phone] Reason for Referral * Diagnostic Imaging (Routine) - Closed Specialty Diagnoses / Procedures Referred By Riaz harvey Referred To Contact Diagnoses Poor growth affecting management of mother in third trimester, single or unspecified fetus Procedures US Biophysical Profile WO Test An Diaz MD [address] [facility] [address] [place] [address] Phone: tel: fax: [facility] (All Locations) Referral ID Status Reason Start Date Expiration Date Visits Re quested Visits Authorized [id number] Closed 07/11/2020 10/10/2020 8 8 Reason for Visit * Diagnostic Imaging (Routine) - Closed Specialty Diagnoses / Procedures Referred By Riaz harvey Referred To Contact Diagnoses Poor growth affecting management of mother in third trimester, single or unspecified fetus Procedures US Biophysical Profile WO Test An Diaz MD [address] [facility] [address] [place] [address] Phone: tel: fax: [facility] (All Locations) Referral ID Status Reason Start Date Expiration Date Visits Re quested Visits Authorized [id number] Closed 07/11/2020 10/10/2020 8 8 Encounter Details Date Type Department Care Team (Latest Contact Info) Description 08/02/2020 2:15 PM CDT - 08/02/2020 11:59 PM CDT Hospital Encounter [facility] - Ultrasound [address] [facility] [place] [address] Giuliana Crisostomo MD [address] [facility] [phone] [place] [address] An Diaz MD [address] [facility] [place] [address] [place], [place] [id number] Poor growth affecting management of mother in [...] of Binge Drinking Not on file 07/12 [place] Depression Scale Answer Date Recorded [place] Depression Scale Total 0 07/05/2020 The thought of harming myself has occurred to me . Never 07/05/2020 Comments Yes Sex and Gender Information Value Date Recorded Sex Assigned at Not on file Legal Sex Female 8:40 PM FRONT DESK RECEPTIONIST Gender Identity Female 12/02/2022 6:55 PM CDT Sexual Orientation Straight 12/02/2022 6: 55 PM CDT documented as of this encounter Medications at Time of Discharge azelaic acid 15 % gel APPLY TO FACE TWICE A DAY 08/01/2020 4 doxylamine (UNISOM) 25 mg tablet Take 25 [...] TEST Schedule Routine, Read Routine (OP Routine) 08/02/2020 2:34 PM CDT Poor growth affecting management of mother in third trimester, single or unspecified fetus documented in this encounter Results * US Biophysical Profile WO Test (08/02/2020 2:34 PM CDT) Fetus# Fetus1 VIEWPOINT Placenta Details posterior, Previa-no VIEWPOINT Presentation Vertex VIEWPOINT Anatomical Region Laterality Modality N/A Ultrasound 08/02/2020 2:36 PM CDT us An Diaz MD IMG OB US PROCEDURES Final Result documented in this encounter Visit Diagnoses Diagnosis Poor growth affecting management of mother in third trimester, single or unspecified fetus documented in this encounter Care Teams [place] Operator Relationship Specialty Start Date End Date No, Physician PCP - General 11/01/16 documented as of this encounter
--- OUTSIDE RECORDS SUMMARY | 2024-04-02 11:55 | XMS_ITS | Encounter Summary ---
Author Organization [facility] Healthcare Address [address] [place] [address] Care Team Providers Care Sharepoint Engineer Name Role Phone No, Physician Primary Care Provider [phone] Reason for Referral * Diagnostic Imaging (Routine) - Closed Specialty Diagnoses / Procedures Referred By Riaz harvey Referred To Contact Diagnoses Poor growth affecting management of mother in third trimester, single or unspecified fetus Procedures US Biophysical Profile WO Test An Diaz MD [address] [facility] [address] [place] [address] Phone: tel: fax: [facility] (All Locations) Referral ID Status Reason Start Date Expiration Date Visits Re quested Visits Authorized [id number] Closed 07/11/2020 10/10/2020 8 8 Reason for Visit * Diagnostic Imaging (Routine) - Closed Specialty Diagnoses / Procedures Referred By Riaz harvey Referred To Contact Diagnoses Poor growth affecting management of mother in third trimester, single or unspecified fetus Procedures US Biophysical Profile WO Test An Diaz MD [address] [facility] [address] [place] [address] Phone: tel: fax: [facility] (All Locations) Referral ID Status Reason Start Date Expiration Date Visits Re quested Visits Authorized [id number] Closed 07/11/2020 10/10/2020 8 8 Encounter Details Date Type Department Care Team (Latest Contact Info) Description 07/12/2020 2:00 PM CDT - 07/12/2020 11:59 PM CDT Hospital Encounter [facility] Center for Outpatient Health - Ultrasound [address] [facility], 7th Floor, [address] [place] [address] Giuliana Crisostomo [facility] [address] [facility] [phone] [place] [address] An Diaz MD [address] [facility] [place] [address] [place], [place] [id number] Poor growth affecting management of mother in third trimester, single or unspecified fetus Discharge Disposition: Discharge to home or self care Social History Tobacco Use Types Packs/Day Years Used Date Smoking Tobacco: Never Smokeless Tobacco: Never Alcohol Use Standard Drinks/Week Comments No 0 (1 standard drink = 0.6 oz pur e alcohol) [place] Depression Scale Answer Date Recorded [place] Depression Scale Total 0 07/05/2020 The thought of harming myself has occurred to me . Never 07/05/2020 Comments Yes Sex and Gender Information Value Date Recorded Sex Assigned at Not on file Legal Sex Female 8:40 PM CAFETERIA TEAM LEADER Gender Identity Female 12/02/2022 6:55 PM CDT [...] TEST Schedule Routine, Read Routine (OP Routine) 07/12/2020 2:16 PM CDT Poor growth affecting management of mother in third trimester, single or unspecified fetus documented in this encounter Results * US Biophysical Profile WO Test (07/12/2020 2:16 PM CDT) Fetus# Fetus1 VIEWPOINT Placenta Details posterior, Previa-no VIEWPOINT Presentation Vertex VIEWPOINT Anatomical Region Laterality Modality N/A Ultrasound 07/12/2020 2:17 PM CDT us An Diaz MD IMG OB US PROCEDURES Final Result documented in this encounter Visit Diagnoses Diagnosis Poor growth affecting management of mother in third trimester, single or unspecified fetus documented in this encounter Care Teams Sharepoint Engineer Relationship Specialty Start Date End Date No, Physician PCP - General 11/01/16 documented as of this encounter
--- OUTSIDE RECORDS SUMMARY | 2024-04-02 11:55 | XMS_ITS | Encounter Summary ---
Author Organization [facility] Healthcare Address [address] [place] [address] Care Team Providers Care Communications Associate Name Role Phone No, Physician Primary Care Provider [phone] Reason for Referral * Diagnostic Imaging (Routine) - Closed Specialty Diagnoses / Procedures Referred By Riaz harvey Referred To Contact Diagnoses Encounter for supervision of normal first in first trimester Procedures US Ob Follow Up An Diaz MD [address] [facility] [address] [place] [address] Phone: tel: fax: [address] [address] Referral ID Status Reason Start Date Expiration Date Visits Re quested Visits Authorized [id number] Closed 05/07/2020 06/06/2021 1 1 IO ENGINEER Reason for Visit * Reason Comments Routine Visit Encounter Details Date Type Department Care Team (Late st Contact Info) Description 05/07/2020 10:00 AM STUDIO ENGINEER Office Visit Obstetrics and Gynecology Clinic [address] [facility] 3rd Floor [address] [place] [address] An Diaz MD [address] [facility] [place] [address] [place] [address] Tobacco use (Primary Dx); Encounter for supervision of normal first in first trimester; Marijuana use/Hx ecstasy use; Depression during in second trimester; Family Hx Congenital Heart Disease Discharge Disposition: Discharge to home or self care Social History Tobacco Use Types Packs/Day Years Used Date Smoking Tobacco: Never Smokeless Tobacco: Never Alcohol Use Standard Drinks/Week Comments No 0 (1 standard drink = 0.6 oz pur e alcohol) [place] Depression Scale Answer Date Recorded [place] Depression Scale Total 11 04/04/2020 The thought of harming myself has occurred to me . Never 04/04/2020 Comments Yes Sex and Gender Information Value Date Recorded Sex Assigned at Not on file Legal Sex Female 8:40 PM STUDIO ENGINEER Gender Identity Female 12/02/2022 6:55 PM CDT Sexual Orientation Straight 12/02/2022 6: 55 PM CDT documented as of this encounter Last Filed Vital Signs Vital Sign Reading Time Taken Comments Blood Pressure 108/58 05/07/2020 11:14 AM STUDIO ENGINEER Pulse 72 05/07/2020 11:14 AM STUDIO ENGINEER Temperature 36.2 ??C (97.2 ??F) 05/07/2020 1 1:14 AM STUDIO ENGINEER Respiratory Rate - - Oxygen Saturation 97% 05/07/2020 11: 14 AM STUDIO ENGINEER Inhaled Oxygen Concentration - - Weight 72.5 kg (159 lb 14.4 oz) 021 11:14 AM STUDIO ENGINEER Height - - Body Mass Index 26.61 02/03/2020 7:50 PM CDT documented in this encounter Patient Instructions * Patient Instructions* An Leigh MD - 05/07/2020 10:00 AM STUDIO ENGINEER Contact us Office hours: Thursday-Thursday 8:30 AM-4:30 PM Phone number: [phone] Daytime: Call us if you have questions [...] medical problem, you can call us at [phone]. Please wait until the clinic is open for non-urgent needs as this emergency line cannot help with appointments, paperwork or prescriptions. If you have an emergency and cannot wait, please call 911 or go to the [facility] Emergency room. If you are having a problem with your or are in labor you can [facility] (check in near elevator on first floor) 1 [facility], 5th [place] [address]. IO ENGINEER documented in this encounter Discharge Disposition Disposition Code Departure Means Destination Discharge to home or self care documented in this encounter Progress Notes * An Leigh MD - 05/07/2020 10:00 AM CST OB RETURN VISIT 05/07/2020 Subjective: Steve Shi is a 24 y.o. at 19w4d who presents today for her return OB visit. Her is currently complicated by family hx of CHD, tobacco use, marijuana use and depression. Anatomy US performed today, only notable for 2 EIFs. Since last visit, pt states she saw Y[facility]K [facility] D[facility]ER at [facility] and was dx with a UTI, unsure what abx she was prescribed. Pt states she is considering transferring care to [facility] and thinks she may want to deliver here. Cut back to 1-2 cigarettes/day. States mood is improved. Took zoloft for a few weeks but did not like the side effects, therefore d/c'd medication because mood has improved in the interim. movement: Yes VB?: No LOF?: No Ctxns?: No Objective: Vitals: 05/07/20 1114 BP: 108/58 BP Location: Left arm Patient Position: Sitting Pulse: 72 Temp: 97.2 ??F TempSrc: Transdermal SpO2: 97% Weight: 159 lb 14.4 oz (72.5 kg) Gen: No acute distress. Abdomen: Soft, nontender, gravid. Extremities: Warm, well perfused. No lower extremity edema/erythema/tenderness. Formal anatomy US today. Assessment/Plan: 24 y.o. at 19w4d. Problem List Tobacco use - Primary Overview IOB visit: Smokes 2-3 cigarettes/day. Counseled on risks of tobacco use in . Encouraged cessation, pt requested nicotine patch. Counseled on use, rx sent. 05/07: cut back to 1-2 cigarettes/day. Marijuana use/Hx ecstasy use Overview Counseled that in utero marijuana exposure is associated with impairment in childhood cognition, short term memory, and school performance. Encouraged patient to abstain from marijuana use in . 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 Concerned regarding new rash on face since used ecstasy (placed derm referral). UDS +MJ at IOB. [] UDS on admission to L&D Family Hx Congenital Heart Disease Overview IOB [...] Counseled pt, desires NIPT, ordered today. Plan [] TTE 05/23 [] f/u NIPT [] growth US at 28 weeks (given EFW 12% on anatomy US) Encounter for supervision of normal in first trimester Overview First Trimester: [x] Dating Criteria: 1T with primary OB [x] Labs: Rh positive, Ab negative, Rubella imm, HIV NR, HepBSAg NR, RPR NR, VZV NI [] Genetic Screening: desires quad screen, will check next visit. Negative CF screening. [] Hgb electrophoresis (if indicated): send with 2T labs [x] GC/CT/trich negative, UCx negative [x] Pap: NILM, 03/09/20 [x] ASA ppx, not indicated [x] [facility] referral (if indicated) [x] Early 1 hour GTT (if indicated) 2nd Trimester: [] Anatomy ultrasound (specialized anatomy ordered) [] CBC [] 1hr gtt at 24-28wks: [x] Flu Shot (Dec-Mar): s/p flu shot 03/06/20 [] Tdap (27-36wks) [] Rhogam (if Rh neg): 3rd Trimester: [] CBC/HIV/RPR/T&S [] GBS [] GC/CT (if indicated) Counseling: [] Method of delivery: ____ [] Method of contraception: to be discussed when viable [] Method of feeding: ____ [] Test Engineer: [] Car seat: [] PP depression [] Attg visits (___/4) [] COVID testing Relevant Orders POCT urinalysis dipstick (Completed) US Ob Follow Up Depression Overview Reports hx of depression, never on meds with current mood waxing/waning. Denies SI/HI. EPDS 11 at IOB visit. Referred to [facility]. Started on zoloft at 04/04 visit. 05/07: Stopped zoloft 2/2 side effects. Mood much improved w/ self coping, has appt w/ counselor. EPDS 3. [] EPDS/mood check q visit RTC in 4 weeks. TTE 05/23. Instructed patient to choose one OB provider based on where she plans to deliver. Pt seen and d/w Dr. Crisostomo. An Diaz MD 05/07/2020 Cosigned by Giuliana Crisostomo MD at 05/23/2020 1:23 PM STUDIO ENGINEER IO ENGINEER IO ENGINEER Associated attestation - Giuliana Crisostomo MD - 05/23/2020 1:23 PM STUDIO ENGINEER I have seen and examined the patient. I agree with the findings and plan of care as documented in the resident/fellow's note. documented in this encounter Plan of Treatment Not on file documented as of this encounter Procedures Procedure Name Priority Date/Time Associated Diagnosis Comments POCT URINALYSIS DIPSTICK Routine 05/07/2020 11:20 AM STUDIO ENGINEER Encounter for supervision of normal first in first trimester documented in this encounter Results * US Ob Follow Up (07/05/2020 11:21 AM CDT) Fetus# Fetus1 VIEWPOINT Placenta Details posterior, Previa-no VIEWPOINT Estimated Weight 1,059 g&grams VIEWPOINT Presentation Vertex VIEWPOINT Anatomical Region Laterality Modality Abdomen N/A Ultrasound 07/05/2020 11:3 2 AM CDT us An Diaz MD IMG OB US PROCEDURES Final Result * POCT urinalysis dipstick (05/07/2020 11:20 AM STUDIO ENGINEER) Glucose, ur, POC Negative Negative mg/dL Ketones, ur, POC Negative Negative Blood, ur, POC Negative Negative Protein, ur, POC Negative Negative Nitrite, ur, POC Negative Negative Leukocytes, ur, POC Negative Negative Lot Number [id number] Urine 05/07/2020 11:2 0 AM STUDIO ENGINEER us An Diaz MD POINT OF CARE TEST OR DERABLES Final Result documented in this encounter Visit Diagnoses Diagnosis Tobacco use- Primary Encounter for supervision of normal first in first trimester Marijuana use/Hx ecstasy use Depression during in second trimester Family Hx Congenital Heart Disease Unspecified congenital anomaly of heart documented in this encounter Care Teams Communications Associate Relationship Specialty Start Date End Date No, Physician PCP - General 11/01/16 documented as of this encounter
--- OUTSIDE RECORDS SUMMARY | 2024-04-02 11:55 | XMS_ITS | Encounter Summary ---
Author Organization [facility] Healthcare Address [address] [place] [address] Care Team Providers Care Commodity Industry Analyst Name Role Phone No, Physician Primary Care Provider [phone] Reason for Referral * Diagnostic Imaging (Routine) - Closed Specialty Diagnoses / Procedures Referred By Riaz harvey Referred To Contact Diagnoses Poor growth affecting management of mother in third trimester, single or unspecified fetus Procedures US Biophysical Profile WO Test An Diaz MD [address] [facility] [address] [place] [address] Phone: tel: fax: [facility] (All Locations) Referral ID Status Reason Start Date Expiration Date Visits Re quested Visits Authorized [id number] Closed 07/11/2020 10/10/2020 8 8 Reason for Visit * Diagnostic Imaging (Routine) - Closed Specialty Diagnoses / Procedures Referred By Riaz harvey Referred To Contact Diagnoses Poor growth affecting management of mother in third trimester, single or unspecified fetus Procedures US Biophysical Profile WO Test An Diaz MD [address] [facility] [address] [place] [address] Phone: tel: fax: [facility] (All Locations) Referral ID Status Reason Start Date Expiration Date Visits Re quested Visits Authorized [id number] Closed 07/11/2020 10/10/2020 8 8 Encounter Details Date Type Department Care Team (Latest Contact Info) Description 08/09/2020 1:30 PM CDT - 08/09/2020 11:59 PM CDT Hospital Encounter [facility] for [facility] - Ultrasound [address] [facility] [place] [address] Giuliana rCisostomo MD [address] [facility] [phone] [place] [address] An Diaz MD [address] [facility] [place] [address] [place], [place] [id number] Poor growth affecting management of mother in [...] of Binge Drinking Not on file 07/12 [place] Depression Scale Answer Date Recorded [place] Depression Scale Total 0 07/05/2020 The thought of harming myself has occurred to me . Never 07/05/2020 Comments Yes Sex and Gender Information Value Date Recorded Sex Assigned at Not on file Legal Sex Female 8:40 PM BOX MAKER WOOD Gender Identity Female 12/02/2022 6:55 PM CDT [...] TEST Schedule Routine, Read Routine (OP Routine) 08/09/2020 1:52 PM CDT Poor growth affecting management of mother in third trimester, single or unspecified fetus documented in this encounter Results * US Biophysical Profile WO Test (08/09/2020 1:52 PM CDT) Fetus# Fetus1 VIEWPOINT Placenta Details posterior, Previa-no, no placental masses VIEWPOINT Presentation Vertex VIEWPOINT Anatomical Region Laterality Modality N/A Ultrasound 08/09/2020 1:52 PM CDT us An Diaz MD IMG OB US PROCEDURES Final Result documented in this encounter Visit Diagnoses Diagnosis Poor growth affecting management of mother in third trimester, single or unspecified fetus documented in this encounter Care Teams Commodity Industry Analyst Relationship Specialty Start Date End Date No, Physician PCP - General 11/01/16 documented as of this encounter
--- OUTSIDE RECORDS SUMMARY | 2024-04-02 11:55 | XMS_ITS | Encounter Summary ---
Author Organization [facility] Healthcare Address [address] [place] [address] Care Team Providers Care Supervisor Small Appliance Assembly Name Role Phone No, Physician Primary Care Provider [phone] Reason for Visit * Reason Comments Problem extended monitoring Encounter Details Date Type Department Care Team (Latest Contact Info) Description 07/16/2020 12:49 PM CDT - 07/16/2020 4:13 PM CDT Hospital Encounter [address] [address] April Cobos MD [address] [place] [id number] Discharge Disposition: Discharge to home or self care Social History Tobacco Use Types Packs/Day Years Used Date Smoking Tobacco: Never Smokeless Tobacco: Never Alcohol Use Standard Drinks/Week Comments No 0 (1 standard drink = 0.6 oz pur e alcohol) [place] Depression Scale Answer Date Recorded [place] Depression Scale Total 0 07/05/2020 The thought of harming myself has occurred to me . Never 07/05/2020 Comments Yes Sex and Gender Information Value Date Recorded Sex Assigned at Not on file Legal Sex Female 8:40 PM STRAINER CLEANER Gender Identity Female 12/02/2022 6:55 PM CDT Sexual Orientation Straight 12/02/2022 6: 55 PM CDT documented as of this encounter Last Filed Vital Signs Vital Sign Reading Time Taken Comments Blood Pressure 119/67 07/16/2020 1:10 PM CDT Pulse 86 07/16/2020 1:10 PM CDT Temperature 36.9 ??C (98.4 ??F) 07/16/2020 1:10 PM C DT Respiratory Rate 18 07/16/2020 1:10 PM CDT Oxygen Saturation 100% 07/16/2020 1:10 PM CDT Inhaled Oxygen Concentration - - Weight 84.4 kg (186 lb) 07/16/2020 1:10 PM CDT Height 162.6 cm (5' 4 ) 07/16/2020 1:10 PM CDT Body Mass Index 31.93 07/16/2020 1:10 PM CDT documented in this encounter Discharge Diagnoses Diagnosis Maternal care for abnormalities of the heart rate or rhythm, third trimester, not applicable or unspecified - MATERNAL CARE FOR ABNORMALITIES OF THE HEART RATE OR RHYTHM, THIRD TRIMESTER, NOT APPLICABLE O 29 weeks gestation of - 29 WEEKS GESTATION OF documented in this encounter Discharge Instructions * Attachments The following attachments cannot be sent through Care Everywhere. * Kick Counts in (General Information) (Sammarinese) * AT 27 TO 30 WEEKS (DISCHARGE CARE) (SOUTH KOREAN) documented in this encounter Medications at Time [...] or self care documented in this encounter Procedure Notes * Mag Cote NP - 07/16/2020 4:13 PM CDT Procedures Pt to [facility] for variable decel on NST in clinic. FHR Baseline: 140 Variability: moderate Reactive: Yes Contractions: absent Comments: Overall reassuring tracing I have reviewed NST and instructed RN to take off monitor Reviewed by Dr Bowen. Mag Cote NP Cosigned by April Cobos MD at 07/16/2020 4:51 PM CDT * April Cobos MD - 07/16/2020 4:13 PM CDT Procedures FHR Baseline: 140 Variability: moderate Accelerations: present Decelerations: present, variable deceleration lasting <30 seconds at 1424 Contractions: absent Reactive: Yes Appropriate for gestational age I have reviewed the NST. April Cobos MD documented in this encounter Nursing Notes * Kaylie Smith RN - 07/16/2020 4:13 PM CDT Patient to [facility] from office for variable deceleration at 29 weeks. FHR monitor applied. Denies vaginal bleeding, loss of fluid, and contractions. Reactive tracing noted. Patient discharged home with kick count instructions and return to [facility] precautions. Patient verbalizes understanding and denies questions at this time. Kaylie Smith RN 07/16/2020 documented in this encounter Plan of Treatment Not on file documented as of this encounter Procedures Procedure Name Priority Date/Time Associated Diagnosis Comments POCT URINALYSIS DIPSTICK Routine 07/16/2020 2:04 PM CDT documented in this encounter Results * POCT urinalysis dipstick (07/16/2020 2:04 PM CDT) Color, Urine, POC Yellow Clarity, ur, POC Clear Clear Glucose, ur, POC Negative Negative mg/dL Bilirubin, ur, POC Negative Negative, Small, Moderate, Large Ketones, ur, POC Negative Negative Specific Joseph, POC 1.015 1.005 - 1.030 Blood, ur, POC Negative Negative pH, ur, POC 6.5 5.0 - 8.0 Protein, ur, POC Negative Negative Urobilinogen, urine, POC 0.2 0.2 - 1.0 mg/dL Nitrite, ur, POC Negative Negative Leukocytes, ur, POC Negative Negative Lot Number [id number] Urine 07/16/2020 2:04 PM CDT Mag Cote TUBE BUILDING MACHINE OPERATOR POINT OF CARE TEST ORDERA BLES Final Result documented in this encounter Visit Diagnoses Not on filedocumented in this encounter Care Teams Supervisor Small Appliance Assembly Relationship Specialty Start Date End Date No, Physician PCP - General 11/01/16 documented as of this encounter
--- OUTSIDE RECORDS SUMMARY | 2024-04-02 11:55 | XMS_ITS | Encounter Summary ---
Author Organization [facility] Healthcare Address [address] [place] [address] Care Team Providers Care Heel Sewer Name Role Phone No, Physician Primary Care Provider [phone] Reason for Referral * Diagnostic Imaging (Routine) - Closed Specialty Diagnoses / Procedures Referred By Riaz harvey Referred To Contact Diagnoses Poor growth affecting management of mother in third trimester, single or unspecified fetus Procedures US Biophysical Profile WO Test An Diaz MD [address] [facility] [address] [place] [address] Phone: tel: fax: [facility] (All Locations) Referral ID Status Reason Start Date Expiration Date Visits Re quested Visits Authorized [id number] Closed 07/11/2020 10/10/2020 8 8 Reason for Visit * Diagnostic Imaging (Routine) - Closed Specialty Diagnoses / Procedures Referred By Riaz harvey Referred To Contact Diagnoses Poor growth affecting management of mother in third trimester, single or unspecified fetus Procedures US Biophysical Profile WO Test An Diaz MD [address] [facility] [address] [place] [address] Phone: tel: fax: [facility] (All Locations) Referral ID Status Reason Start Date Expiration Date Visits Re quested Visits Authorized [id number] Closed 07/11/2020 10/10/2020 8 8 Encounter Details Date Type Department Care Team (Late st Contact Info) Description 08/23/2020 1:30 PM CDT - 08/23/2020 11:59 PM CDT Hospital Encounter [facility] Center for Outpatient Health - Ultrasound [address] [facility] Outpatient Health [place], [place] [id number] Unknown, An Segal MD [address] [facility] [address] [place] [address] Poor growth affecting management of [...] of Binge Drinking Not on file 08/11 [place] Depression Scale Answer Date Recorded [place] Depression Scale Total 0 07/05/2020 The thought of harming myself has occurred to me . Never 07/05/2020 Comments Yes Sex and Gender Information Value Date Recorded Sex Assigned at Not on file Legal Sex Female 8:40 PM RIBBER Gender Identity Female 12/02/2022 6:55 PM CDT [...] 20 tablet 1 10/13/19 21 PNV with [id number] 27 mg iron- 1 mg tabletIndications:V itamin [...] TEST Schedule Routine, Read Routine (OP Routine) 08/23/2020 1:49 PM CDT Poor growth affecting management of mother in third trimester, single or unspecified fetus documented in this encounter Results * US Biophysical Profile WO Test (08/23/2020 1:49 PM CDT) Fetus# Fetus1 VIEWPOINT Placenta Details posterior, Previa-no VIEWPOINT Presentation Vertex VIEWPOINT Anatomical Region Laterality Modality N/A Ultrasound 08/23/2020 1:55 PM CDT us An Diaz MD IMG OB US PROCEDURES Final Result documented in this encounter Visit Diagnoses Diagnosis Poor growth affecting management of mother in third trimester, single or unspecified fetus documented in this encounter Care Teams Heel Sewer Relationship Specialty Start Date End Date No, Physician PCP - General 11/01/16 documented as of this encounter
--- OUTSIDE RECORDS SUMMARY | 2024-04-02 11:55 | XMS_ITS | Encounter Summary ---
Author Organization [facility] Healthcare Address [address] [place] [address] Care Team Providers Care Data Governance Consultant Name Role Phone No, Physician Primary Care Provider [phone] Reason for Visit * Reason Comments Problem extended monitoring; nonreactive NST Encounter Details Date Type Department Care Team (Latest Contact Info) Description 08/20/2020 12:12 PM CDT - 08/20/2020 2:15 PM CDT Hospital Encounter [address] [address] April Cobos MD [address] [place] [id number] Discharge Disposition: Discharge to home or self [...] of Binge Drinking Not on file 08/11 [place] Depression Scale Answer Date Recorded [place] Depression Scale Total 0 07/05/2020 The thought of harming myself has occurred to me . Never 07/05/2020 Comments Yes Sex and Gender Information Value Date Recorded Sex Assigned at Not on file Legal Sex Female 8:40 PM BENCH BORING MACHINE OPERATOR Gender Identity Female 12/02/2022 6:55 PM CDT Sexual Orientation Straight 12/02/2022 6: 55 PM CDT documented as of this encounter Last Filed Vital Signs Vital Sign Reading Time Taken Comments Blood Pressure 106/69 08/20/2020 12:18 PM CDT Pulse 75 08/20/2020 1:45 PM CDT Temperature 36.6 ??C (97.8 ??F) 08/20/2020 12:18 PM C DT Respiratory Rate 18 08/20/2020 12:18 PM CDT Oxygen Saturation 93% 08/20/2020 1:45 PM CDT Inhaled Oxygen Concentration - - Weight 90.3 kg (199 lb) 08/20/2020 12:18 PM CDT Height 162.6 cm (5' 4 ) 08/20/2020 12:18 PM CDT Body Mass Index 34.16 08/20/2020 12:18 PM CDT documented in this encounter Discharge Diagnoses Diagnosis Maternal care for other known or suspected poor growth, unspecified trimester, not applicable or unspecified - MATERNAL CARE FOR OTHER KNOWN OR SUSPECTED POOR GROWTH, UNSPECIFIED TRIMESTER, NOT APPLICABLE Weeks of gestation of not specified - WEEKS OF GESTATION OF NOT SPECIFIED documented in this encounter Discharge Instructions * Attachments The following attachments cannot be sent through Care Everywhere. * at 35 to 38 Weeks (Discharge Care) ([place]ierra Leonean) documented in this encounter Medications at Time [...] 20 tablet 1 10/13/19 21 PNV with [id number] 27 mg iron- 1 mg tabletIndications:V itamin [...] documented in this encounter Procedure Notes * April Cobos MD - 08/20/2020 1:55 PM CDT Procedures FHR Baseline: 130 Variability: moderate Accelerations: present Decelerations: absent Contractions: absent Reactive: Yes I have reviewed the NST. April Cobos MD * Cate Chavarria NP - 08/20/2020 1:52 PM CDT Procedures Pt sent from Clinic for extended monitoring for non-reactive NST. Completing NST for IUGR. Scheduled for Ultrasound on . Date 08/20/20 Time [id number] FHR Baseline: 130bpm Variability: moderate Reactive: Yes Contractions: absent Comments: Overall reassuring tracing Dr Cobos and I have reviewed NST and instructed RN to take off monitor Cate Chavarria NP Cosigned by April Cobos MD at 08/20/2020 2:02 PM CDT documented in this encounter Plan of Treatment Not on file documented as of this encounter Visit Diagnoses Not on filedocumented in this encounter Care Teams Data Governance Consultant Relationship Specialty Start Date End Date No, Physician PCP - General 11/01/16 documented as of this encounter
--- OUTSIDE RECORDS SUMMARY | 2024-04-02 11:55 | XMS_ITS | Encounter Summary ---
Author Organization [facility] Healthcare Address [address] [place] [address] Care Team Providers Care Bindery Cutter Operator Name Role Phone No, Physician Primary Care Provider [phone] Reason for Visit * Reason Comments Routine Visit Encounter Details Date Type Department Care Team (Late st Contact Info) Description 08/16/2020 12:45 PM CDT Office Visit Obstetrics and Gynecology Clinic [facility] 3rd Floor [address] [place] [address] Giuliana Crisostomo MD [facility] [phone] [place] [address] [place] [address] [place] [address] [address] [place] [address] [place], [place] [id number] Encounter for supervision of normal in first trimester, unspecified (Primary Dx); Poor growth affecting management of mother in third trimester, fetus 1 of multiple gestation; Maternal varicella, non-immune; Depression during in third trimester; Marijuana use/Hx ecstasy use; Tobacco use; Family Hx Congenital Heart Disease Discharge Disposition: [...] of Binge Drinking Not on file 08/11 [place] Depression Scale Answer Date Recorded [place] Depression Scale Total 0 07/05/2020 The thought of harming myself has occurred to me . Never 07/05/2020 Comments Yes Sex and Gender Information Value Date Recorded Sex Assigned at Not on file Legal Sex Female 8:40 PM DATA VIRTUALIZATION CONSULTANT Gender Identity Female 12/02/2022 6:55 PM CDT Sexual Orientation Straight 12/02/2022 6: 55 PM CDT documented as of this encounter Last Filed Vital Signs Vital Sign Reading Time Taken Comments Blood Pressure 113/62 08/16/2020 2:13 PM CDT Pulse 72 08/16/2020 2:13 PM CDT Temperature 36.3 ??C (97.3 ??F) 08/16/2020 2:13 PM CD T Respiratory Rate 18 08/16/2020 2:13 PM CDT Oxygen Saturation 100% 08/16/2020 2:13 PM CDT Inhaled Oxygen Concentration - - Weight 90.3 kg (199 lb) 08/16/2020 2:13 PM CDT Height - - Body Mass Index 34.16 07/16/2020 1:10 PM CDT documented in this encounter Patient Instructions * Patient Instructions* Lety Calderon MD - 08/16/2020 12:45 PM CDT Contact us Office hours: Thursday-Thursday 8:30 AM-4:30 PM Phone number: [phone] Daytime: Call us if you have questions [...] medical problem, you can call us at [phone]. Please wait until the clinic is open for non-urgent needs as this emergency line cannot help with appointments, paperwork or prescriptions. If you have an emergency and cannot wait, please call 911 or go to the [facility] Emergency room. If you are having a problem with your or are in labor you can go to the [facility] [place] (check in near elevator on first floor) 1 [facility], 5th [place] [address]. documented in this encounter Discharge Disposition Disposition Code Departure Means Destination Discharge to home or self care documented in this encounter Progress Notes * Lety Calderon MD - 08/16/2020 12:45 PM CDT OB RETURN VISIT 08/16/2020 Subjective: Steve Shi is a 25 y.o. at 34w0d who presents today for her return OB visit. She is overalldoing well. Good FM, denies VB/LOF/contractions. She has a little bit of pain in her lower pelvis at night that resolves when she urinates. Mood has been good. Her is currently complicated by??family hx of CHD, tobacco use, IUGR (resolved x 1)??and depression.?? movement: Yes VB?: No LOF?: No Ctxns?: No Objective: Vitals: 08/16/20 1413 BP: 113/62 BP Location: Right arm Patient Position: Sitting Pulse: 72 Resp: 18 Temp: 97.3 ??F TempSrc: Temporal SpO2: 100% Weight: 199 lb (90.3 kg) Gen: No acute distress. CV: regular rate Pulm: Non-labored breathing Abdomen: Soft, nontender, gravid. Extremities: Warm, well perfused. No lower extremity edema/erythema/tenderness. Formal US with FHR 132 bpm, BPP 8/8 Assessment/Plan: 25 y.o. at 34w0d. Problem List Family Hx Congenital Heart Disease Overview IOB [...] based on AC <5%ile (see separate problem) Tobacco use Overview IOB visit: Smokes 2-3 cigarettes/day. Counseled on risks of tobacco use in . Encouraged cessation, pt requested nicotine patch. Counseled on use, rx sent. 07/26: down to 1-2 cigarettes per day and some days without smoking. Congratulated on efforts to cutback. Marijuana use/Hx ecstasy use Overview Previously counseled that in utero marijuana exposure is associated with impairment in childhood cognition, short term memory, and school performance. Encouraged patient to abstain from marijuana usein . 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 Concerned regarding new rash on face since used ecstasy (placed derm referral). UDS +MJ at IOB. - 07/26: Has not used MJ recently. Congratulated on cessation! [] UDS on admission to L&D Depression Overview Reports hx of depression, never on meds with current mood waxing/waning. Denies SI/HI. EPDS 11 at IOB visit. Referred to [facility]. Started on zoloft at 04/04 visit. 05/07: Stopped zoloft 2/2 side effects. Mood much improved w/ self coping, has appt w/ counselor. 06/21: EPDS 0, mood great. 07/26: Mood is good [] EPDS/mood check q visit Maternal varicella, non-immune Overview - for varivax Encounter for supervision of normal in first [...] (if Rh neg): NA 3rd Trimester: [x] CBC/HIV/RPR/T&S: sent 08/16 [] GBS [x] GC/CT (if indicated): sent 08/16 Counseling: [x] Method of delivery: anticipate ; pt considering IOL timing, potentially on due date if growth continues to be AGA as per IUGR problem [] Method of contraception: undecided, previously provided w/ bedsider website [x] Method of feeding: breast [] Store Stock Help: [] Car seat: [] PP depression [] COVID testing Current Assessment & Plan - Discussed use of pillow between knees at night to decrease pelvic discomfort. Provided reassurance that low pelvic pain is common in 3T. Relevant Orders HIV 1/2 Antibody plus p24 Antigen RPR CBC without differential Type and screen Trichomonas vaginalis PCR Urine N. gonorrhoeae/C. trachomatis Amplification Urine IUGR - Primary Overview New onset IUGR on formal US [...] dopplers, BPP 8/8. IUGR resolved x 1. Plan: - Once weekly NSTs and once weekly UA dopplers/BPP, scheduled out - Next growth US to be scheduled 09/06/20 - Extensively discussed IOL and timing of delivery today. Reviewed arrive trial and option for rrIOL at 39 weeks. Patient would prefer to wait until 40 weeks if everything is on track with growth. Discussed that if AGA with normal AC at next growth US at 37 weeks that 40 week IOL would be reasonable. Discussed that testing can help guide us in terms of timing of delivery and she is understanding/would want IOL if there was concern for status. Relevant Orders POCT urinalysis dipstick (Completed) Twice weekly testing ordered. RTC 2 weeks for OB visit and US - will see Dr. Diaz againas she is off nights now. Pt d/w Dr. Hazel. Lety Calderon MD 08/16/2020 Cosigned by Leyda Hazel DO at 08/23/2020 9:44 AM CDT Associated attestation - Leyda Hazel DO - 08/23/2020 9:44 AM CDT I agree with the findings and plan of care as discussed with the resident/fellow. 25 year old at 34+0 here for CHERYL. complicated by history of IUGR now resolved with most recent growth 23%ile. Repeat growth in 4 weeks. Continue weekly NST/BPPs. PTL precautions reviewed. Leyda Hazel DO documented in this encounter Miscellaneous Notes * Assessment & Plan Note - Lety Calderon MD - 08/16/2020 2:29 PM CDTAssociated Problem(s): HROB: Encounter for supervision of normal in first trimester - Discussed use of pillow between knees at night to decrease pelvic discomfort. Provided reassurance that low pelvic pain is common in 3T. documented in this encounter Plan of Treatment Not on file documented as of this encounter Procedures Procedure Name Priority Date/Time Associated Diagnosis Comments N. GONORRHOEAE/C. TRACHOMATIS AMPLIFICATION Routine 08/16/2020 4:23 PM CDT Encounter for supervision of normal in first trimester, unspecified TRICHOMONAS VAGINALIS PCR Routine 08/16/2020 4:23 PM CDT Encounter for supervision of normal in first trimester, unspecified HIV 1/2 ANTIBODY PLUS P24 ANTIGEN Routine 08/16/2020 2:55 PM CDT Encounter for supervision of normal in first trimester, unspecified RPR Routine 08/16/2020 2:55 PM CDT Encounter for supervision of normal in first trimester, unspecified CBC WITHOUT DIFFERENTIAL Routine 08/16/2020 2:55 PM CDT Encounter for supervision of normal in first trimester, unspecified TYPE AND SCREEN Routine 08/16/2020 2:55 PM CDT Encounter for supervision of normal in first trimester, unspecified POCT URINALYSIS DIPSTICK Routine 08/16/2020 2:16 PM CDT Poor growth affecting management of mother in third trimester, fetus 1 of multiple gestation documented in this encounter Results * N. gonorrhoeae/C. trachomatis Amplification Urine (08/16/2020 4:23 PM CDT) C. trachomatis Not Detected Not Detected EUNICE AGGARWAL N. gonorrhoeae Not Detected Not Detected EUNICE AGGARWAL Comment: Interpretive Data Testing performed by the [facility]. This assay detects Chlamydia trachomatis and Neisseria gonorrhoeae by nucleic acid amplification testing (NAAT). This test is approved by the [place] Food and Drug Administration and the performance characteristics have been verified by the laboratory. The performance characteristics of this test have not been evaluated in individuals less than 14 years of age. Current Interpretive Data was last revised on 2018. Urine (None) 08/16/2020 4:23 PM CDT 08/16/2020 9:25 PM CDT Lety Calderon MD LAB MICROBIOLOGY - GENERAL ORDERABLES Final Result Performing Organization Address City/[facility] Co de Phone Number [facility] Department [place] [address] * Trichomonas vaginalis PCR Urine (08/16/2020 4:23 PM CDT) Pathologist [facility] Trichomonas DNA Not Detected Not Detected EUNICE BAEZ Comment: Interpretive Data Testing performed by [facility] using Nucleic Acid Amplification with the Parametric Sound Xpert TV Assay. ??This assay detects DNA from Trichomonas vaginalis using Real-Time PCR. ??This test is cleared by the [facility] Food and Drug Administration for endocervical swabs, vaginal swabs, female urine (first-catch), and male urine (first-catch). ??The performance characteristics for these specimen types have been verified by the [facility]. ??Excess blood in specimens may be inhibitory and result in false negative results. ??The performance of this test has not been evaluated in women or individuals less than 18 years of age. Current Interpretive Data was last revised on 2018. Urine 08/16/2020 4:23 PM CDT 08/16/2020 9:25 PM CDT us Lety Calderon MD LAB MICROBIOLOGY - GENERAL ORDERABLES Final Result Performing Organization Address City/[facility]/ZIP Co de Phone Number [facility] [place] [address] * Type and screen (08/16/2020 2:55 PM CDT) ABO Rh A Positive EUNICE BAEZ Mitra, indirect Negative EUNICE BAEZ Blood specimen (specimen) 08/16/2020 2:55 PM CDT 08/16/2020 4:01 PM CDT Narrative [facility] - 08/16/2020 5:08 PM CDT Has the patient had Daratumumab or Isatuximab in the past 6 months?->Unknown Lety Calderon MD LAB BLOOD BANK TE ST ORDERABLES Final Result Performing Organization Address City/[facility]/ZIP Co de Phone Number [facility] [place] [address] * (ABNORMAL) CBC without differential (08/16/2020 2:55 PM CDT) [facility] WBC 7.8 3.8 - 9.9 K/cumm [facility] Hgb 11.6(L) 11.9 - 15.5 g/dL [facility] Hct 36.3 35.6 - 45.5 % [facility] Plt 233 150 - 400 K/cumm [facility] MPV 11.4 9.1 - 12.3 fL [facility] RBC 4.22 3.90 - 5.20 M/cumm [facility] MCV 86.0 81.3 - 96.4 fL [facility] MCH 27.5 27.1 - 33.3 pg [facility] MCHC 32.0(L) 32.3 - 35.7 g/dL [facility] RDW CV 13.8 11.1 - 14.9 % [facility] RDW SD 42.6 35.7 - 48.1 fL [facility] NRBC abs 0.00 0.00 - 0.01 K/cumm [facility] Blood specimen (specimen) 08/16/2020 2:55 PM CDT 08/16/2020 3:44 PM CDT Lety Calderon MD LAB BLOOD ORDERAB LES Final Result Performing Organization Address City/[facility]/ZIP Co de Phone Number [facility] [place] [address] * RPR (08/16/2020 2:55 PM CDT) Pathologist [facility] RPR Nonreactive Nonreactive [facility] Blood specimen (specimen) 08/16/2020 2:55 PM CDT 08/16/2020 3:44 PM CDT Result [facility] Lety Calderon MD LAB MICROBIOLOGY - GENERAL ORDERABLES Final Result Performing Organization Address [facility] [place] [place] [address] * HIV 1/2 Antibody plus p24 Antigen (08/16/2020 2:55 PM CDT) Pathologist [facility] HIV 1/2 ab + p24 ag Nonreactive Nonreactive [facility] Comment: Nonreactive for HIV-1 antigen and HIV-1/HIV-2 antibodies. No laboratory evidence of HIV infection. If acute HIV infection is suspected, consider testing for HIV-1 RNA. Blood specimen (specimen) 08/16/2020 2:55 PM CDT 08/16/2020 3:44 PM CDT Result [facility] Lety Calderon MD LAB MICROBIOLOGY - GENERAL ORDERABLES Final Result Performing Organization Address [facility] [place] [address] * POCT urinalysis dipstick (08/16/2020 2:16 PM CDT) Pathologist [facility] Glucose, ur, POC Negative Negative mg/dL Ketones, ur, POC Negative Negative Blood, ur, POC Negative Negative Protein, ur, POC Negative Negative Nitrite, ur, POC Negative Negative Leukocytes, ur, POC Negative Negative Lot Number [id number] Urine 08/16/2020 2:16 PM CDT Result [facility] Lety Calderon MD POINT OF CARE JASWINDER T ORDERABLES Final Result documented in this encounter Visit Diagnoses Diagnosis Encounter for supervision of normal in first trimester, unspecified - Primary Poor growth affecting management of mother in third trimester, fetus 1 of multiple gestation Maternal varicella, non-immune Supervision of other normal Depression during in third trimester Marijuana use/Hx ecstasy use Tobacco use Family Hx Congenital Heart Disease Unspecified congenital anomaly of heart documented in this encounter Care Teams Bindery Cutter Operator Relationship Specialty Start Date End Date No, Physician PCP - General 11/01/16 documented as of this encounter
--- OUTSIDE RECORDS SUMMARY | 2024-04-02 11:55 | XMS_ITS | Encounter Summary ---
Author Organization [facility] Healthcare Address [address] [place] [address] Care Team Providers Care Associate Technician Name Role Phone No, Physician Primary Care Provider [phone] Reason for Referral * Diagnostic Imaging (Routine) - Closed Specialty Diagnoses / Procedures Referred By Riaz t Referred To Contact Diagnoses Poor growth affecting management of mother in third trimester, fetus 1 of multiple gestation Procedures [place] [address] [place] [address] [address] [address] [place] [address] Phone: tel: fax: [facility] (All Locations) Referral ID Status Reason Start Date Expiration Date Visits Re quested Visits Authorized [id number] Closed 07/26/2020 08/25/2021 1 1 Reason for Visit * Reason Comments Routine Visit Encounter Details Date Type Department Care Team (Late st Contact Info) Description 07/26/2020 2:15 PM CDT Office Visit Obstetrics and Gynecology Clinic [address] [facility] 3rd Floor [address] [place] [address] Giuliana Crisostomo MD [address] [facility] [phone] [place] [address] Lety Calderon MD [address] [facility] [address] [place] [address] Marijuana use/Hx ecstasy use (Primary Dx); Poor growth affecting management of mother in third trimester, fetus 1 of multiple gestation; Family Hx Congenital Heart Disease; Encounter for supervision of normal in first trimester, unspecified ; Depression during in third trimester; Tobacco use; Maternal varicella, non-immune Discharge Disposition: Discharge to home or self [...] of Binge Drinking Not on file 07/12 [place] Depression Scale Answer Date Recorded [place] Depression Scale Total 0 07/05/2020 The thought of harming myself has occurred to me . Never 07/05/2020 Comments Yes Sex and Gender Information Value Date Recorded Sex Assigned at Not on file Legal Sex Female 8:40 PM CAR ICER Gender Identity Female 12/02/2022 6:55 PM CDT Sexual Orientation Straight 12/02/2022 6: 55 PM CDT documented as of this encounter Last Filed Vital Signs Vital Sign Reading Time Taken Comments Blood Pressure 112/66 07/26/2020 4:05 PM CDT Pulse 80 07/26/2020 4:05 PM CDT Temperature - - Respiratory Rate - - Oxygen Saturation 100% 07/26/2020 4:05 PM CDT Inhaled Oxygen Concentration - - Weight 87.8 kg (193 lb 8 oz) 07/26/2020 4:05 PM CDT Height - - Body Mass Index 33.21 07/16/2020 1:10 PM CDT documented in this encounter Patient Instructions * Patient Instructions* Lety Calderon MD - 07/26/2020 2:15 PM CDT - You can consider ordering a support belt on Rezolve to help with your pelvic pressure sensation. Contact us Office hours: Thursday-Thursday 8:30 AM-4:30 PM Phone number: [phone] Daytime: Call us if you have questions [...] medical problem, you can call us at [phone]. Please wait until the clinic is open for non-urgent needs as this emergency line cannot help with appointments, paperwork or prescriptions. If you have an emergency and cannot wait, please call 911 or go to the [facility] Emergency room. If you are having a problem with your or are in labor you can go to the [facility] (check in near elevator on first floor) 1 [facility], 5th [place] [address]. documented in this encounter Discharge Disposition Disposition Code Departure Means Destination Discharge to home or self care documented in this encounter Progress Notes * Lety Calderon MD - 07/26/2020 2:15 PM CDT OB RETURN VISIT 07/26/2020 Subjective: Steve Shi is a 25 y.o. at 31w0d who presents today for her return OB visit. She is overalldoing well. Has intermittent low pelvic pain/pressure. No contractions. Good FM. Reports still smoking 1-2 cigarettes per day but really cutting back, has some days where she doesn't smoke at all. Has completely stopped MJ use. Mood has been good. Her is currently complicated by??family hx of CHD, tobacco use, IUGR, marijuana use??and depression.?? movement: Yes VB?: No LOF?: No Ctxns?: No Objective: Vitals: 07/26/20 1605 BP: 112/66 Patient Position: Sitting Pulse: 80 SpO2: 100% Weight: 193 lb 8 oz (87.8 kg) Gen: No acute distress. CV: regular rate Pulm: Non-labored breathing Abdomen: Soft, nontender, gravid. Extremities: Warm, well perfused. No lower extremity edema/erythema/tenderness. Formal US with FHR 136 bpm, BPP 11/18 Assessment/Plan: 25 y.o. at 31w0d. Problem List Family Hx Congenital Heart Disease [...] based on AC <5%ile (see separate problem) Encounter for supervision of normal in first [...] gtt at 24-28wks: 81 [x] Flu Shot (Sep-Mar): s/p flu shot 03/06/20 [x] Tdap (27-36wks): administered 07/05 [x] Rhogam (if Rh neg): NA 3rd Trimester: [] CBC/HIV/RPR/T&S: To be done next visit [] GBS [] GC/CT (if indicated) Counseling: [x] Method of delivery: anticipate [] Method of contraception: undecided, previously provided w/ bedsider website [x] Method of feeding: breast [] Party Director: [] Car seat: [] PP depression [] COVID testing Current Assessment & Plan - Ms. Shi has some pelvic pressure, improves with warm baths. Discussed use of belt. Discussed tylenol PRN/heat packs/warm baths. Tobacco use Overview IOB visit: Smokes 2-3 cigarettes/day. Counseled on risks of tobacco use in . Encouraged cessation, pt requested nicotine patch. Counseled on use, rx sent. 07/26: down to 1-2 cigarettes per day and some days without smoking. Congratulated on efforts to cutback. Marijuana use/Hx ecstasy use - Primary Overview Previously counseled that in utero marijuana [...] is good [] EPDS/mood check q visit IUGR Overview New onset IUGR on formal US 07/05 based on AC 5%ile. Overall weight 17%ile. Counseled patient on dx and etiologies of IUGR including constitutional, genetic, infectious and placental insufficiency. Low risk NIPT. Dated by 1T US. Recommend twice weekly testing and serial growth per IUGR protocol (ordered). - 07/26: US with EFW 1548 (19%), AC 9%ile, normal UA dopplers, BPP 11/18. Plan: - Once weekly NSTs and once weekly UA dopplers/BPP, scheduled out - Next growth US to be scheduled 08/16/20 Relevant Orders US Ob Follow Up POCT urinalysis dipstick (Completed) Maternal varicella, non-immune Overview - for varivax Twice weekly testing ordered. RTC 3 weeks for visit and growth US. Pt seen and d/w Dr. Graham. Lety Calderon MD 07/26/2020 Cosigned by Nuvia Graham MD at 07/30/2020 1:57 PM CDT Associated attestation - Nuvia Graham MD - 07/30/2020 1:57 PM CDT I have seen and examined the patient. I agree with the findings and plan of care as documented in the resident's note. 25 yo at 31w0d with c/b IUGR, doing testing, undecided re contraception, plans to breastfeed Nuvia Graham MD documented in this encounter Miscellaneous Notes * Assessment & Plan Note - Lety Calderon MD - 07/26/2020 4:16 PM CDTAssociated Problem(s): HROB: Encounter for supervision of normal in first trimester - Ms. Shi has some pelvic pressure, improves with warm baths. Discussed use of belt. Discussed tylenol PRN/heat packs/warm baths. documented in this encounter Plan of Treatment Not on file documented as of this encounter Procedures Procedure Name Priority Date/Time Associated Diagnosis Comments POCT URINALYSIS DIPSTICK Routine 07/26/2020 4:06 PM CDT Poor growth affecting management of [...] IMG OB US PROCEDU RES Final Result * POCT urinalysis dipstick (07/26/2020 4:06 PM CDT) Glucose, ur, POC Negative Negative mg/dL Bilirubin, ur, POC Negative Negative, Small, Moderate, Large Ketones, ur, POC Negative Negative Blood, ur, POC Negative Negative Protein, ur, POC Negative Negative Nitrite, ur, POC Negative Negative Leukocytes, ur, POC Negative Negative Lot Number [id number] Urine 07/26/2020 4:06 PM CDT Lety Calderon MD POINT OF CARE JASWINDER T ORDERABLES Final Result documented in this encounter Visit Diagnoses Diagnosis Marijuana use/Hx ecstasy use- Primary Poor growth affecting management of mother in third trimester, fetus 1 of multiple gestation Family Hx Congenital Heart Disease Unspecified congenital anomaly of heart Encounter for supervision of normal in first trimester, unspecified Depression during in third trimester Tobacco use Maternal varicella, non-immune Supervision of other normal documented in this encounter Care Teams Associate Technician Relationship Specialty Start Date End Date No, Physician PCP - General 11/01/16 documented as of this encounter
--- OUTSIDE RECORDS SUMMARY | 2024-04-02 11:55 | XMS_ITS | Encounter Summary ---
Author Organization [facility] Healthcare Address [address] [place] [address] Care Team Providers Care Records Management Specialist Name Role Phone No, Physician Primary Care Provider [phone] Reason for Referral * Diagnostic Imaging (Routine) - Closed Specialty Diagnoses / Procedures Referred By Riaz harvey Referred To Contact Diagnoses Poor growth affecting management of mother in third trimester, single or unspecified fetus Procedures US Biophysical Profile WO Test An Diaz MD [address] [facility] [address] [place] [address] [place] [address] Phone: tel: fax: [facility] (All Locations) Referral ID Status Reason Start Date Expiration Date Visits Re quested Visits Authorized [id number] Closed 07/11/2020 10/10/2020 8 8 Reason for Visit * Diagnostic Imaging (Routine) - Closed Specialty Diagnoses / Procedures Referred By Riaz harvey Referred To Contact Diagnoses Poor growth affecting management of mother in third trimester, single or unspecified fetus Procedures US Biophysical Profile WO Test An Diaz MD [address] [facility] [address] [place] [address] [place] [address] Phone: tel: fax: [facility] (All Locations) Referral ID Status Reason Start Date Expiration Date Visits Re quested Visits Authorized [id number] Closed 07/11/2020 10/10/2020 8 8 Encounter Details Date Type Department Care Team (Latest Contact Info) Description 08/16/2020 1:21 PM CDT - 08/16/2020 11:59 PM CDT Hospital Encounter [facility] [address] [facility] [place] [address] Giuliana Crisostomo MD [address] [facility] [address] [phone] [place] [address] Lety Calderon MD [address] [facility] [place] [address] [place] [address] [place], [place] [id number] Poor growth affecting management of mother in [...] of Binge Drinking Not on file 07/12 [place] Depression Scale Answer Date Recorded [place] Depression Scale Total 0 07/05/2020 The thought of harming myself has occurred to me . 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[employer] Gender Identity Female 12/02/2022 6:55 PM CDT [...] TEST Schedule Routine, Read Routine (OP Routine) 08/16/2020 1:21 PM CDT Poor growth affecting management of mother in third trimester, single or unspecified fetus documented in this encounter Results * US Biophysical Profile WO Test (08/16/2020 1:21 PM CDT) Fetus# Fetus1 VIEWPOINT Placenta Details posterior, Previa-no VIEWPOINT Estimated Weight 2,141 g&grams VIEWPOINT Presentation Vertex VIEWPOINT Anatomical Region Laterality Modality N/A Ultrasound 08/16/2020 1:22 PM CDT us An Diaz MD IMG OB US PROCEDURES Final Result documented in this encounter Visit Diagnoses Diagnosis Poor growth affecting management of mother in third trimester, single or unspecified fetus documented in this encounter Care Teams Records Management Specialist Relationship Specialty Start Date End Date No, Physician PCP - General 7/22/17 documented as of this encounter
--- OUTSIDE RECORDS SUMMARY | 2024-04-02 11:55 | XMS_ITS | Encounter Summary ---
Author Organization [facility] Healthcare Address [address] [place] [address] Care Team Providers Care Dater Assembler Name Role Phone No, Physician Primary Care Provider [phone] Reason for Visit * Reason Comments NST/BPP Visit Encounter Details Date Type Department Care Team (Late st Contact Info) Description 08/06/2020 11:00 AM CDT Procedure visit Obstetrics and Gynecology Clinic [address] [facility] 3rd Floor [address] [place] [address] Giuliana Crisostomo MD [address] [facility] [address] [phone] [place], [place] [id number] Poor growth affecting management of mother in [...] of Binge Drinking Not on file 07/12 [place] Depression Scale Answer Date Recorded [place] Depression Scale Total 0 07/05/2020 The thought of harming myself has occurred to me . 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 Gender Identity Female 12/02/2022 6:55 PM CDT Sexual Orientation Straight 12/02/2022 6: 55 PM CDT documented as of this encounter Last Filed Vital Signs Vital Sign Reading Time Taken Comments Blood Pressure 116/65 08/06/2020 11:31 AM CDT Pulse 85 08/06/2020 11:31 AM CDT Temperature - - Respiratory Rate - - Oxygen Saturation - - Inhaled Oxygen Concentration - - Weight - - Height - - Body Mass Index - - documented in this encounter Discharge Disposition Disposition Code Departure Means Destination Discharge to home or self care documented in this encounter Progress Notes * Jonathan Garcia RN - 08/06/2020 11:00 AM CDT NSt reactive per Dr. Christina * Carie Ordoñez MD - 08/06/2020 11:00 AM CDT Images from the original note were not included. NST reactive documented in this encounter Plan of Treatment Not on file documented as of this encounter Visit Diagnoses Diagnosis Poor growth affecting management of mother in third trimester, fetus 1 of multiple gestation documented in this encounter Care Teams Dater Assembler Relationship Specialty Start Date End Date No, Physician PCP - General 11/01/16 documented as of this encounter
--- OUTSIDE RECORDS SUMMARY | 2024-04-02 11:55 | XMS_ITS | Encounter Summary ---
Author Organization [facility] Address [address] [place] [address] Phone Care Team Providers Care Report Programmer Name Role Phone No, Physician Primary Care Provider [phone] Reason for Referral * Cardiology (Routine) - Closed Specialty Diagnoses / Procedures Referred By Contac t Referred To Contact Diagnoses Encounter for supervision of normal first in first trimester Procedures Echocardiogram An Diaz MD [address] [place] [address] [place] [address] [address] Phone: tel: fax: [facility] (All Locations) Referral ID Status Reason Start Date Expiration Date Visits Re quested Visits Authorized [id number] Closed 04/04/2020 05/04/2021 1 1 ICE CENTER COORDINATOR Reason for Visit * Cardiology (Routine) - Closed Specialty Diagnoses / Procedures Referred By Contmaryann t Referred To Contact Diagnoses Encounter for supervision of normal first in first trimester Procedures Echocardiogram An Diaz MD [address] [place] [address] [place] [address] [address] Phone: tel: fax: [facility] (All Locations) Referral ID Status Reason Start Date Expiration Date Visits Re quested Visits Authorized [id number] Closed 04/04/2020 05/04/2021 1 1 Encounter Details Date Type Department Care Team (Latest Contact Info) Description 05/25/2020 11:00 AM SERVICE CENTER COORDINATOR - 05/25/2020 11:59 PM SERVICE CENTER COORDINATOR Hospital Encounter [facility] Pediatric Cardiology [facility] 2nd Floor [address] [place] [address] Encounter for supervision of normal first in first trimester Discharge Disposition: Discharge to home or self care Social History Tobacco Use Types Packs/Day Years Used Date Smoking Tobacco: Never Smokeless Tobacco: Never Alcohol Use Standard Drinks/Week Comments No 0 (1 standard drink = 0.6 oz pur e alcohol) [place] Depression Scale Answer Date Recorded [place] Depression Scale Total 11 04/04/2020 The thought of harming myself has occurred to me . Never 04/04/2020 Comments Yes Sex and Gender Information Value Date Recorded Sex Assigned at Not on file Legal Sex Female 8:40 PM SERVICE CENTER COORDINATOR Gender Identity Female 12/02/2022 6:55 PM CDT Sexual Orientation Straight 12/02/2022 6: 55 PM CDT documented as of this encounter Last Filed Vital Signs Vital Sign Reading Time Taken Comments Blood Pressure 96/62 05/25/2020 1:05 PM SERVICE CENTER COORDINATOR Pulse - - Temperature - - Respiratory Rate - - Oxygen Saturation - - Inhaled Oxygen Concentration - - Weight - - Height - - Body Mass Index - - documented in this encounter Medications at Time [...] Procedure Name Priority Date/Time Associated Diagnosis Comments ECHOCARDIOGRAM Routine 05/25/2020 1:06 PM SERVICE CENTER COORDINATOR Encounter for supervision of normal first in first trimester documented in this encounter Results * Echocardiogram (05/25/2020 1:06 PM SERVICE CENTER COORDINATOR) Anatomical Region Laterality Modality Ultrasound 05/25/2020 12:0 7 PM SERVICE CENTER COORDINATOR Narrative 05/25/2020 1:02 PM SERVICE CENTER COORDINATOR ?[facility] ? Echo Report ?[facility]'[address], [place] ??[address] ?[phone] ? Patient Name: RENNYFEDERA Shahid ? Study Type: Echo ? Patient : 1995 ? Exam Date: ??05/25/2020 ?Age: ?24Y ? Exam Time: ??12:07:00 PM ? Referring MD: GEORGINA DOSS Height: ? 165cm ?Weight: ? 72.3kg ? BSA: ?1.8 m2 ? Sex: FEMALE ? BP: ? 99/62 ?Sinter Machine Operator: Dami Rasmussen ? Account:[id number] ? Indications for Study:FAMILY HISTORY OF CONGENITAL HEART DISEASE Procedures: COLORFLOW, DOPPLER COMPLETE, , COMPLETE SUMMARY: Initial echocardiogram (2D, color, Doppler) performed on [...] normal Doppler pattern. Normal ductus venosus Doppler. Atria: Situs: Solitus. RA Size: Normal. ??LA Size: Normal. Septum: PFO. Defect sz. Moderate ??Shunt: [id number]-[id number]-Elwn ?? Annular Dimensions: ??TV: 6.9mm MV:6.2mm ??LVID:8mm ??RVID:7.8mm ?Pulm Valve:3.6mm ??Ao Valve:3.1mm ?? Ventricles: D-looped ??LV size: Normal. LV function:Normal. Rv size: Normal. ??RV function: Normal. IVS: Motion: ??Normal. ??Defect Type/Size: None./None. ??Shunt: None. Grt Vessls: Normal. Aortic Root: Normal. MPA: Normal LPA: Normal. RPA: Normal. ?? Aortic Arch: Unobstructed Ductus Arteriosus: ?? 130 ?cm/sec Systm Veins: SVC: Normal. IVC: Normal. Pulm Veins: Visualized: 2/4. Connections: Normal. Pericardium: ??Normal Mitral Valve: E/A ?? 15/34 ?cm/sec ?? Structure: Normal. Stenosis: No. Regurgitation: No. Tricuspid Valve: E/A ?? 30/55 ?cm/sec ??Structure: Normal. Stenosis:No. ??Regurgitation: No. Pulmonary Valve: Flow velocity 41 ?cm/sec ??Structure: Normal. Stenosis: No. Regurgitation: No. Aortic Valve: Flow velocity 51 ?? cm/sec ??Structure: Normal. Stenosis: No. Regurgitation: No. Pulsatility index: Ductal Arch: 2.9 Umb Artery: 0.82 MCA:1.78 cardiac rhythm: 1:1 AV conduction Rate: ??142 ?? bpm FINDINGS: Signed 05/25/2020 01:02 PM Dale Amaro DO Procedure Note Dale Amaro DO - 05/25/2020 [facility] Echo Report [address] [address] Patient Name: STEVE SHI Study Type: Echo Patient : 1995 Exam Date: 05/25/2020 Age: 24Y Exam Time: 12:07:00 PM Referring MD: GEORGINA DOSS Height: 165cm Weight: 72.3kg BSA: 1.8 m2 Sex: FEMALE BP: 99/62 Sinter Machine Operator: Dami Rasmussen Account:[id number] Indications for Study:FAMILY HISTORY OF CONGENITAL HEART DISEASE Procedures: COLORFLOW, DOPPLER COMPLETE, , COMPLETE SUMMARY: Initial echocardiogram (2D, color, Doppler) performed on [...] normal Doppler pattern. Normal ductus venosus Doppler. Atria: Situs: Solitus. RA Size: Normal. LA Size: Normal. Septum: PFO. Defect sz. Moderate Shunt: Shdgr-ah-Jjvj Annular Dimensions: TV: 6.9mm MV:6.2mm LVID:8mm RVID:7.8mm Pulm Valve:3.6mm Ao Valve:3.1mm Ventricles: D-looped LV size: Normal. LV function:Normal. Rv size: Normal. RV function: Normal. IVS: Motion: Normal. Defect Type/Size: None./None. Shunt: None. Grt Vessls: Normal. Aortic Root: Normal. MPA: Normal LPA: Normal. RPA: Normal. Aortic Arch: Unobstructed Ductus Arteriosus: 130 cm/sec Systm Veins: SVC: Normal. IVC: Normal. Pulm Veins: Visualized: 2/4. Connections: Normal. Pericardium: Normal Mitral Valve: E/A 15/34 cm/sec Structure: Normal. Stenosis: No. Regurgitation: No. Tricuspid Valve: E/A 30/55 cm/sec Structure: Normal. Stenosis:No. Regurgitation: No. Pulmonary Valve: Flow velocity 41 cm/sec Structure: Normal. Stenosis: No. Regurgitation: No. Aortic Valve: Flow velocity 51 cm/sec Structure: Normal. Stenosis: No. Regurgitation: No. Pulsatility index: Ductal Arch: 2.9 Umb Artery: 0.82 MCA:1.78 cardiac rhythm: 1:1 AV conduction Rate: 142 bpm FINDINGS: Signed 05/25/2020 01:02 PM Dale Amaro DO An Diaz MD CV ECHO PROCEDURES Fi nal Result documented in this encounter Visit Diagnoses Diagnosis Encounter for supervision of normal first in first trimester documented in this encounter Care Teams Report Programmer Relationship Specialty Start Date End Date No, Physician PCP - General 11/01/16 documented as of this encounter
--- OUTSIDE RECORDS SUMMARY | 2024-04-02 11:55 | XMS_ITS | Encounter Summary ---
Author Organization [facility] Healthcare Address [address] [place] [address] Care Team Providers Care Printing Machine Operator Tape Rules Name Role Phone No, Physician Primary Care Provider [phone] Reason for Visit * Reason Comments Non-stress Test Encounter Details Date Type Department Care Team (Late st Contact Info) Description 08/20/2020 11:00 AM CDT Procedure visit Obstetrics and Gynecology Clinic [address] [facility] 3rd Floor [address] [place] [address] Giuliana Crisostomo MD [address] [facility] [address] [phone] [place], [place] [id number] Poor growth affecting management of mother in [...] of Binge Drinking Not on file 08/11 [place] Depression Scale Answer Date Recorded [place] Depression Scale Total 0 07/05/2020 The thought of harming myself has occurred to me . 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 Gender Identity Female 12/02/2022 6:55 PM CDT Sexual Orientation Straight 12/02/2022 6: 55 PM CDT documented as of this encounter Last Filed Vital Signs Vital Sign Reading Time Taken Comments Blood Pressure 110/59 08/20/2020 11:34 AM CDT Pulse 96 08/20/2020 11:34 AM CDT Temperature - - Respiratory Rate 18 08/20/2020 11:34 AM CDT Oxygen Saturation - - Inhaled Oxygen Concentration - - Weight - - Height - - Body Mass Index - - documented in this encounter Discharge Disposition Disposition Code Departure Means Destination Discharge to home or self care documented in this encounter Progress Notes * Mirtha Cortes RN - 08/20/2020 11:00 AM CDT NST non-reactive per Dr. Robert. Pt to go to [facility] for further monitoring. NST to be reviewedby Dr. Cobos. * Carie Ordoñez MD - 08/20/2020 11:00 AM CDT I have reviewed the NST and agree with documentation above, nonreactive, sent to [facility]. Carie Ordoñez MD documented in this encounter Plan of Treatment Not on file documented as of this encounter Visit Diagnoses Diagnosis Poor growth affecting management of mother in third trimester, fetus 1 of multiple gestation documented in this encounter Care Teams Printing Machine Operator Tape Rules Relationship Specialty Start Date End Date No, Physician PCP - General 11/01/16 documented as of this encounter
--- OUTSIDE RECORDS SUMMARY | 2024-04-02 11:55 | XMS_ITS | Encounter Summary ---
Author Organization [facility] Healthcare Address [address] [place] [address] Care Team Providers Care Core Blower Name Role Phone No, Physician Primary Care Provider [phone] Reason for Referral * Medication Authorization - Closed Specialty Diagnoses / Procedures Referred By Riaz harvey Referred To Contact Diagnoses Encounter for supervision of normal first in third trimester An Diaz MD [address] [facility] [address] [place] [address] [address] Phone: tel: fax: Referral ID Status Reason Start Date Expiration Date Visits Re quested Visits Authorized [id number] Closed 07/05/2020 08/04/2021 1 1 * Diagnostic Imaging (Routine) - Closed Specialty Diagnoses / Procedures Referred By Riaz harvey Referred To Contact Diagnoses Poor growth affecting management of mother in third trimester, single or unspecified fetus Procedures US Biophysical Profile WO Test An Diaz MD [address] [facility] [address] [place] [address] [place] [address] Phone: tel: fax: [facility] Referral ID Status Reason Start Date Expiration Date Visits Re quested Visits Authorized [id number] Closed 07/11/2020 10/10/2020 8 8 * Diagnostic Imaging (Routine) - Closed Specialty Diagnoses / Procedures Referred By Riaz t Referred To Contact Diagnoses Poor growth affecting management of mother in third trimester, single or unspecified fetus [place] [address] [place], [place] [address] [place] [address] [place] [address] [place] [address] Phone: tel: fax: [facility] 1 [place] [address] Referral ID Status Reason Start Date Expiration Date Visits Re quested Visits Authorized [id number] Closed 07/05/2020 08/04/2021 1 1 Reason for Visit * Reason Comments Routine Visit * Medication Authorization - Closed Specialty Diagnoses / Procedures Referred By Riaz harvey Referred To Contact Diagnoses Encounter for supervision of normal first in third trimester An Diaz MD [address] [place] [address] 3 [place] [address] [facility] [place] [address] Phone: tel: fax: Referral ID Status Reason Start Date Expiration Date Visits Re quested Visits Authorized [id number] Closed 07/05/2020 08/04/2021 1 1 Encounter Details Date Type Department Care Team (Late st Contact Info) Description 07/05/2020 12:45 PM CDT Office Visit Obstetrics and Gynecology Clinic [address] [place] [address] Outpatient Health 3rd Floor [address] [place] [phone] Giuliana Crisostomo MD [address] [place] [address] [phone] [place], [place] [id number] An Diaz MD [address] [place], [place] [address] [place] [address] [place] [address] [place], [place] [id number] Encounter for supervision of normal first in third trimester (Primary Dx); Poor growth affecting management of mother in third trimester, single or unspecified fetus; Family Hx Congenital Heart Disease Discharge Disposition: Discharge to home or self care Social History Tobacco Use Types Packs/Day Years Used Date Smoking Tobacco: Never Smokeless Tobacco: Never Alcohol Use Standard Drinks/Week Comments No 0 (1 standard drink = 0.6 oz pur e alcohol) [place] Depression Scale Answer Date Recorded [place] Depression Scale Total 0 07/05/2020 The thought of harming myself has occurred to me . Never 07/05/2020 Comments Yes Sex and Gender Information Value Date Recorded Sex Assigned at Not on file Legal Sex Female 8:40 PM INSPECTOR QUALITY ASSURANCE Gender Identity Female 12/02/2022 6:55 PM CDT Sexual Orientation Straight 12/02/2022 6: 55 PM CDT documented as of this encounter Last Filed Vital Signs Vital Sign Reading Time Taken Comments Blood Pressure 102/62 07/05/2020 12:40 PM CDT Pulse - - Temperature - - Respiratory Rate - - Oxygen Saturation - - Inhaled Oxygen Concentration - - Weight 84.4 kg (186 lb) 07/05/2020 12:40 PM CDT Height - - Body Mass Index 30.95 02/03/2020 7:50 PM CDT documented in this encounter Patient Instructions * Patient Instructions* An Diaz MD - 07/05/2020 12:45 PM CDT Contact us Office hours: Thursday-Thursday 8:30 AM-4:30 PM Phone number: [phone] Daytime: Call us if you have questions [...] medical problem, you can call us at [phone]. Please wait until the clinic is open for non-urgent needs as this emergency line cannot help with appointments, paperwork or prescriptions. If you have an emergency and cannot wait, please call 911 or go to the [facility] Emergency room. If you are having a problem with your or are in labor you can go to the [facility] (check in near elevator on first floor) 1 [facility], [address]th [place] [address]. documented in this encounter Discharge Disposition Disposition Code Departure Means Destination Discharge to home or self care documented in this encounter Progress Notes * An Diaz MD - 07/05/2020 12:45 PM CDT OB RETURN VISIT 07/06/2020 Subjective: Steve Shi is a 24 y.o. at 28w0d who presents today for her return OB visit. Her is currently complicated by??family hx of CHD, tobacco use, marijuana use??and depression.?? Mood has been good. movement: Yes VB?: No LOF?: No Ctxns?: No Objective: Vitals: 07/05/20 1240 BP: 102/62 Weight: 186 lb (84.4 kg) Gen: No acute distress. Abdomen: Soft, nontender, gravid. Extremities: Warm, well perfused. No lower extremity edema/erythema/tenderness. Formal US with +FHTs. New IUGR based on AC 5%ile. 11/18 BPP. Assessment/Plan: 24 y.o. at 28w0d. Problem List IUGR Overview New onset IUGR on formal US 07/05 based on AC 5%ile. Overall weight 17%ile. Counseled patient on dx and etiologies of IUGR including constitutional, genetic, infectious and placental insufficiency. Low risk NIPT. Dated by 1T US. Recommend twice weekly testing and serial growth per IUGR protocol (ordered). Relevant Orders US Ob Follow Up US Biophysical Profile WO Test nonstress test - Family Hx Congenital Heart Disease Overview IOB [...] normal in first trimester - Primary Overview First Trimester: [x] Dating Criteria: 1T with primary OB [x] Labs: Rh positive, Ab negative, Rubella imm, HIV NR, HepBSAg NR, RPR NR, VZV NI [x] Genetic Screening: low risk NIPT. Negative CF screening. [x] Hgb electrophoresis (if indicated): [x] GC/CT/trich negative, UCx negative [x] Pap: NILM, 03/09/20 [x] ASA ppx, not indicated [x] PNBHS referral (if indicated) [x] Early 1 hour GTT (if indicated) 2nd Trimester: [x] Anatomy ultrasound [x] CBC [x] 1hr gtt at 24-28wks: [x] Flu Shot (Sep-Mar): s/p flu shot 03/06/20 [x] Tdap (27-36wks): administered 07/05 [] Rhogam (if Rh neg): 3rd Trimester: [] CBC/HIV/RPR/T&S [] GBS [] GC/CT (if indicated) Counseling: [x] Method of delivery: anticipate [] Method of contraception: undecided, provided w/ bedsider website [x] Method of feeding: breast [] Statistical Geneticist: [] Car seat: [] PP depression [] Attg visits (___/4) [] COVID testing Relevant Orders POCT urinalysis dipstick (Completed) Twice weekly testing ordered. RTC 3 weeks for visit and growth US. Pt seen and d/w Dr. Irving. An Diaz MD 07/06/2020 Cosigned by Fariha Irving MD at 07/16/2020 12:46 AM CDT Associated attestation - Fariha Irving MD - 07/16/2020 12:46 AM CDT I have seen and examined the patient. I agree with the findings and plan of care as documented in the resident/fellow's note. Fariha Irving MD documented in this encounter Plan of Treatment Scheduled Orders Name Type Priority Associated Diagnoses Orde r Schedule US Biophysical Profile WO Test Imaging Schedule Routine, Read Routine (OP Routine) Poor growth affecting management of mother in third trimester, single or unspecified fetus weekly for 8 Occurrences starting 07/05/2020 until 11/04/2020, 7 completed documented as of this encounter Procedures Procedure Name Priority Date/Time Associated Diagnosis Comments POCT URINALYSIS DIPSTICK Routine 07/05/2020 12:42 PM CDT Encounter for supervision of normal first in third trimester documented in this encounter Results * US Biophysical Profile WO Test (08/30/2020 1:40 PM CDT) Fetus# Fetus1 VIEWPOINT Placenta Details posterior, Previa-no VIEWPOINT Presentation Vertex VIEWPOINT Anatomical Region Laterality Modality N/A Ultrasound 08/30/2020 1:41 PM CDT us An Diaz MD [facility] OB US PROCEDURES Final Result * US Biophysical Profile WO Test (08/23/2020 1:49 PM CDT) Fetus# Fetus1 VIEWPOINT Placenta Details posterior, Previa-no VIEWPOINT Presentation Vertex VIEWPOINT Anatomical Region Laterality Modality N/A Ultrasound 08/23/2020 1:55 PM CDT us An Diaz MD [facility] OB US PROCEDURES Final Result * US Biophysical Profile WO Test (08/16/2020 1:21 PM CDT) Fetus# Fetus1 VIEWPOINT Placenta Details posterior, Previa-no VIEWPOINT Estimated Weight 2,141 g&grams VIEWPOINT Presentation Vertex VIEWPOINT Anatomical Region Laterality Modality N/A Ultrasound 08/16/2020 1:22 PM CDT us An Diaz MD IM OB US PROCEDURES Final Result * US Biophysical Profile WO Test (08/09/2020 1:52 PM CDT) Fetus# Fetus1 VIEWPOINT Placenta Details posterior, Previa-no, no placental masses VIEWPOINT Presentation Vertex VIEWPOINT Anatomical Region Laterality Modality N/A Ultrasound 08/09/2020 1:52 PM CDT us An Diaz MD IM OB US PROCEDURES Final Result * US Biophysical Profile WO Test (08/02/2020 2:34 PM CDT) Fetus# Fetus1 VIEWPOINT Placenta Details posterior, Previa-no VIEWPOINT Presentation Vertex VIEWPOINT Anatomical Region Laterality Modality N/A Ultrasound 08/02/2020 2:36 PM CDT us An Diaz MD [facility] OB US PROCEDURES Final Result * US Ob Follow Up (07/26/2020 3:04 PM CDT) Fetus# Fetus1 VIEWPOINT Placenta Details anterior, Previa-no VIEWPOINT Estimated Weight 1,548 g&grams VIEWPOINT Presentation Vertex VIEWPOINT Anatomical Region Laterality Modality Abdomen N/A Ultrasound 07/26/2020 3:26 PM CDT us An Diaz MD IM OB US PROCEDURES Final Result * US Biophysical Profile WO Test (07/19/2020 1:41 PM CDT) Fetus# Fetus1 VIEWPOINT Placenta Details posterior, Previa-no, no placental masses VIEWPOINT Presentation Vertex VIEWPOINT Anatomical Region Laterality Modality N/A Ultrasound 07/19/2020 1:42 PM CDT us An Diaz MD IMG OB US PROCEDURES Final Result * US Biophysical Profile WO Test (07/12/2020 2:16 PM CDT) Fetus# Fetus1 VIEWPOINT Placenta Details posterior, Previa-no VIEWPOINT Presentation Vertex VIEWPOINT Anatomical Region Laterality Modality N/A Ultrasound 07/12/2020 2:17 PM CDT us An Diaz MD IMG OB US PROCEDURES Final Result * (ABNORMAL) POCT urinalysis dipstick (07/05/2020 12:42 PM CDT) Glucose, ur, POC Negative Negative mg/dL Protein, ur, POC Trace(A) Negative Nitrite, ur, POC Negative Negative Lot Number . Urine 07/05/2020 12:4 2 PM CDT us An Diaz MD POINT OF CARE TEST OR DERABLES Final Result documented in this encounter Visit Diagnoses Diagnosis Encounter for supervision of normal first in third trimester- Primary Poor growth affecting management of mother in third trimester, single or unspecified fetus Family Hx Congenital Heart Disease Unspecified congenital anomaly of heart documented in this encounter Orders Medications Ordered That Alex ht Not Have Been Administered Count Last Ordered Date First Ordered Date Tdap (BOOSTRIX) 2.5-8-5 Lf-m cg-Lf/0.5mL vaccine 0.5 mL 1 07/05/2020 documented in this encounter Care Teams Core Blower Relationship Specialty Start Date End Date No, Physician PCP - General 11/01/16 documented as of this encounter
--- OUTSIDE RECORDS SUMMARY | 2024-04-02 11:55 | XMS_ITS | Encounter Summary ---
Author Organization [facility] Healthcare Address [address] [place] [address] Care Team Providers Care Ticket Marker Name Role Phone No, Physician Primary Care Provider [phone] Encounter Details Date Type Department Care Team (Late st Contact Info) Description 04/16/2020 Telephone Obstetrics and Gynecology Clinic [address] [facility] 3rd Floor [address] [place] [address] Elvira Greene Social History Tobacco Use Types Packs/Day Years Used Date Smoking Tobacco: Never Smokeless Tobacco: Never Alcohol Use Standard Drinks/Week Comments No 0 (1 standard drink = 0.6 oz pur e alcohol) [place] Depression Scale Answer Date Recorded [place] Depression Scale Total 11 04/04/2020 The thought of harming myself has occurred to me . Never 04/04/2020 Comments Yes Sex and Gender Information Value Date Recorded Sex Assigned at Not on file Legal Sex Female 8:40 PM HUMAN INTELLIGENCE Gender Identity Female 12/02/2022 6:55 PM CDT Sexual Orientation Straight 12/02/2022 6: 55 PM CDT documented as of this encounter Miscellaneous Notes * Telephone Encounter - Elvira Greene - 04/16/2020 3:44 PM CST error N INTELLIGENCE documented in this encounter Plan of Treatment Not on file documented as of this encounter Visit Diagnoses Not on filedocumented in this encounter Care Teams Ticket Marker Relationship Specialty Start Date End Date No, Physician PCP - General 11/01/16 documented as of this encounter
--- OUTSIDE RECORDS SUMMARY | 2024-04-02 11:55 | XMS_ITS | Encounter Summary ---
Author Organization [facility] Healthcare Address [address] [place] [address] Care Team Providers Care First Aid Attendant Name Role Phone No, Physician Primary Care Provider [phone] Reason for Visit * Reason Comments Non-stress Test Encounter Details Date Type Department Care Team (Late st Contact Info) Description 07/16/2020 11:00 AM CDT Procedure visit Obstetrics and Gynecology Clinic [address] [facility] 3rd Floor [address] [place] [address] Giuliana Crisostomo MD [address] [facility] [phone] [place], [place] [id number] Poor growth affecting management of mother in third trimester, single or unspecified fetus Discharge Disposition: Discharge to home or self care Social History Tobacco Use Types Packs/Day Years Used Date Smoking Tobacco: Never Smokeless Tobacco: Never Alcohol Use Standard Drinks/Week Comments No 0 (1 standard drink = 0.6 oz pur e alcohol) [place] Depression Scale Answer Date Recorded [place] Depression Scale Total 0 07/05/2020 The thought of harming myself has occurred to me . 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 Gender Identity Female 12/02/2022 6:55 PM CDT Sexual Orientation Straight 12/02/2022 6: 55 PM CDT documented as of this encounter Last Filed Vital Signs Vital Sign Reading Time Taken Comments Blood Pressure 107/60 07/16/2020 11:37 AM CDT Pulse 85 07/16/2020 11:37 AM CDT Temperature - - Respiratory Rate - - Oxygen Saturation - - Inhaled Oxygen Concentration - - Weight - - Height - - Body Mass Index - - documented in this encounter Discharge Disposition Disposition Code Departure Means Destination Discharge to home or self care documented in this encounter Progress Notes * April De La O RN - 07/16/2020 11:00 AM CDT NST nonreactive per Dr. Lord. Decel x2, to [employer] for continued monitoring. Patient escorted by RN to [employer]. documented in this encounter Plan of Treatment Not on file documented as of this encounter Visit Diagnoses Diagnosis Poor growth affecting management of mother in third trimester, single or unspecified fetus documented in this encounter Care Teams First Aid Attendant Relationship Specialty Start Date End Date No, Physician PCP - General 11/01/16 documented as of this encounter
--- OUTSIDE RECORDS SUMMARY | 2024-04-02 11:55 | XMS_ITS | Encounter Summary ---
Author Organization [facility] Healthcare Address [address] [place] [address] Care Team Providers Care Instructor Painting Name Role Phone No, Physician Primary Care Provider [phone] Reason for Visit * Reason Comments NST/BPP Visit Encounter Details Date Type Department Care Team (Late st Contact Info) Description 07/09/2020 11:00 AM CDT Procedure visit Obstetrics and Gynecology Clinic [address] [facility] 3rd Floor [address] [place] [address] Giuliana Crisostomo MD [address] [facility] [phone] [place], [place] [id number] Poor growth affecting management of mother in third trimester, single or unspecified fetus Discharge Disposition: Discharge to home or self care Social History Tobacco Use Types Packs/Day Years Used Date Smoking Tobacco: Never Smokeless Tobacco: Never Alcohol Use Standard Drinks/Week Comments No 0 (1 standard drink = 0.6 oz pur e alcohol) [place] Depression Scale Answer Date Recorded [place] Depression Scale Total 0 07/05/2020 The thought of harming myself has occurred to me . Never 07/05/2020 Comments Yes Sex and Gender Information Value Date Recorded Sex Assigned at Not on file Legal Sex Female 8:40 PM CONTROL CLERK AUDITING Gender Identity Female 12/02/2022 6:55 PM CDT Sexual Orientation Straight 12/02/2022 6: 55 PM CDT documented as of this encounter Last Filed Vital Signs Vital Sign Reading Time Taken Comments Blood Pressure 104/58 07/09/2020 11:23 AM CDT Pulse 69 07/09/2020 11:23 AM CDT Temperature - - Respiratory Rate - - Oxygen Saturation - - Inhaled Oxygen Concentration - - Weight - - Height - - Body Mass Index - - documented in this encounter Discharge Disposition Disposition Code Departure Means Destination Discharge to home or self care documented in this encounter Progress Notes * Jonathan Garcia RN - 07/09/2020 11:00 AM CDT NST reactive per Dr. Christina documented in this encounter Plan of Treatment Not on file documented as of this encounter Visit Diagnoses Diagnosis Poor growth affecting management of mother in third trimester, single or unspecified fetus documented in this encounter Care Teams Instructor Painting Relationship Specialty Start Date End Date No, Physician PCP - General 11/01/16 documented as of this encounter
--- OUTSIDE RECORDS SUMMARY | 2024-04-02 11:55 | XMS_ITS | Encounter Summary ---
Author Organization [facility] Healthcare Address [address] [place] [address] Care Team Providers Care Backshoe Person Name Role Phone No, Physician Primary Care Provider [phone] Encounter Details Date Type Department Care Team (Late st Contact Info) Description 06/25/2020 3:10 PM CDT [address] [address] Baljinder Dueñas MD [address] [place] [address] [place] [id number] Discharge Disposition: Discharge to home or self care Social History Tobacco Use Types Packs/Day Years Used Date Smoking Tobacco: Never Smokeless Tobacco: Never Alcohol Use Standard Drinks/Week Comments No 0 (1 standard drink = 0.6 oz pur e alcohol) [place] Depression Scale Answer Date Recorded [place] Depression Scale Total 0 06/21/2020 The thought of harming myself has occurred to me . Never 06/21/2020 Comments Yes Sex and Gender Information Value Date Recorded Sex Assigned at Not on file Legal Sex Female 8:40 PM SENIOR MARKETING DATA ANALYST Gender Identity Female 12/02/2022 6:55 PM CDT Sexual Orientation Straight 12/02/2022 6: 55 PM CDT documented as of this encounter Discharge Disposition Disposition Code Departure Means Destination Discharge to home or self care documented in this encounter Plan of Treatment Not on file documented as of this encounter Procedures Procedure Name Priority Date/Time Associated Diagnosis Comments TB TEST, QUANTIFERON GOLD Routine 06/25/2020 3:13 PM CDT VARICELLA ZOSTER ANTIBODY, IGG Routine 06/25/2020 3:13 PM CDT documented in this encounter Results * TB test, quantiferon gold (06/25/2020 3:13 PM CDT) Pathologist [facility] Quantiferon TB Gold Negative Negative [facility] ([facility]) Comment: No interferon-gamma response to M. tuberculosis antigens was detected. Infection with M. tuberculosis is unlikely. A single negative result does not exclude infection with M. tuberculosis. In patients at high risk for M.tuberculosis infection, a second test should be considered in accordance with the 2017 ATS/IDSA/CDC Clinical Practice Guidelines for Diagnosis of Tuberculosis in Adults and Children [Lewinsohn DM et. al. Clin. Infect. Dis. 2017;64(2):111-115]. The reference range for the 'TB1 Ag minus Nil Result' and 'TB2 Ag minus Nil Result' is an Interferon-gamma level <0.35 IU/mL. TB-Nil 0.00 IUnits/mL [facility] ([facility]) TB2-Nil 0.00 IUnits/mL [facility] ([facility]) Mitogen-Nil 8.03 IUnits/mL [facility] ([place]) NIL 0.02 IUnits/mL [facility] ([facility]) Comment: Test Performed by: [place] [address] Ct Scan Special Procedures Technologist: Bo Valdez M.D. Ph.D.; CLIA# [id number] Blood specimen (specimen) 06/25/2020 3:13 PM CDT 06/25/2020 3:44 PM CDT us Baljinder Dueñas MD LAB BLOOD ORDERABLES Final Result [facility] ([facility]) 1 [facility] Department [place] [address] * Varicella Zoster (VZV) IgG Blood (06/25/2020 3:13 PM CDT) VZV IgG Nonreactive Nonreactive [facility] ([place]) Comment: No IgG antibodies specific to Varicella Zoster virus detected.?? Patient is presumed not to have had a previous exposure to Varicella Zoster through??infection or vaccination. ?? Testing performed by: [facility], [address] [facility], [place]., [address] Blood specimen (specimen) 06/25/2020 3:13 PM CDT 06/25/2020 7:34 PM CDT us Baljinder Dueñas MD LAB MICROBIOLOGY - G ENERAL ORDERABLES Final Result [facility] ([facility]) 1 [facility] Department [place] [address] documented in this encounter Visit Diagnoses Not on filedocumented in this encounter Care Teams Backshoe Person Relationship Specialty Start Date End Date No, Physician PCP - General 11/01/16 documented as of this encounter
--- OUTSIDE RECORDS SUMMARY | 2024-04-02 11:55 | XMS_ITS | Encounter Summary ---
Author Organization [facility] Address [address] [place] [address] Phone Care Team Providers Care Oracle Data Warehouse Developer Name Role Phone No, Physician Primary Care Provider [phone] Encounter Details Date Type Department Care Team (Late st Contact Info) Description 05/04/2020 Documentation [facility] [address] [facility] [address] [place] [address] Tamiko Crawford LCSW [address] [facility] [address] [place] [address] Social History Tobacco Use Types Packs/Day Years Used Date Smoking Tobacco: Never Smokeless Tobacco: Never Alcohol Use Standard Drinks/Week Comments No 0 (1 standard drink = 0.6 oz pur e alcohol) [place] Depression Scale Answer Date Recorded [place] Depression Scale Total 11 04/04/2020 The thought of harming myself has occurred to me . Never 04/04/2020 Comments Yes Sex and Gender Information Value Date Recorded Sex Assigned at Not on file Legal Sex Female 8:40 PM OCCUPATIONAL MEDICINE OFFICER Gender Identity Female 12/02/2022 6:55 PM CDT Sexual Orientation Straight 12/02/2022 6: 55 PM CDT documented as of this encounter Progress Notes * Tamiko Crawford LCSW - 05/04/2020 3:15 PM CST [facility] Phone Contact By Tamiko Crawford LCSW to Brenda Shi 1995 Objective of Call: Follow up on initial referral Outcome:Successful Contact Notes, if applicable: Pt engaged easily in conversation with SW, oriented X3. Pt stated she stoppedrx zoloft because it slowed her heart down and she also felt she did not need the rx. Pt stated she has experienced improved mood sx since the time of referral for elevated EPDS. Pt mentioned seeing another OB in [place] 2 days ago, pt encouraged to discuss this with her OB at upcoming appt Sunday 05/07 for continuity of care and also concerns for insurance coverage. Pt agreed. Pt stated her mother is her main support and has been helpful to her, also mentioned I have never had many friends but that she can talk to her mom. Denied sleep or appetite problems. Provided Psychoeducation on PMADs and encouraged pt to reach out as indicated as pt declined services at this time. Pt agreeable. Tamiko Crawford LCSW [facility] Department of Psychiatry [phone] PATIONAL MEDICINE OFFICER documented in this encounter Plan of Treatment Not on file documented as of this encounter Visit Diagnoses Not on filedocumented in this encounter Care Teams Oracle Data Warehouse Developer Relationship Specialty Start Date End Date No, Physician PCP - General 11/01/16 documented as of this encounter
--- OUTSIDE RECORDS SUMMARY | 2024-04-02 11:55 | XMS_ITS | Encounter Summary ---
Author Organization [facility] Address [address] [place] [address] Care Team Providers Care Skip Load Driver Name Role Phone No, Physician Primary Care Provider [phone] Reason for Visit * Reason Comments Problem pelvic pain and pres sure Encounter Details Date Type Department Care Team (Latest Contact Info) Description 07/22/2020 12:20 PM CDT - 07/22/2020 1:55 PM CDT Hospital Encounter [facility] [address] [place] [address] Paul Keith MD [address] [place] [address] [address] Discharge Disposition: Discharge to home or self [...] of Binge Drinking Not on file 07/12 [place] Depression Scale Answer Date Recorded [place] Depression Scale Total 0 07/05/2020 The thought of harming myself has occurred to me . Never 07/05/2020 Comments Yes Sex and Gender Information Value Date Recorded Sex Assigned at Not on file Legal Sex Female 8:40 PM [employer] Gender Identity Female 12/02/2022 6:55 PM CDT Sexual Orientation Straight 12/02/2022 6: 55 PM CDT documented as of this encounter Last Filed Vital Signs Vital Sign Reading Time Taken Comments Blood Pressure 102/63 07/22/2020 12:51 PM CDT Pulse 70 07/22/2020 12:53 PM CDT Temperature - - Respiratory Rate - - Oxygen Saturation 100% 07/22/2020 12:53 PM CDT Inhaled Oxygen Concentration - - Weight - - Height - - Body Mass Index - - documented in this encounter Discharge Diagnoses Diagnosis Encounter for supervision of other normal , unspecified trimester - ENCOUNTER FOR SUPERVISION OF OTHER NORMAL , UNSPECIFIED TRIMESTER documented in this encounter Discharge Instructions * Discharge Instructions* Candis Serna RN - 07/22/2020 1:31 PM CDT Keep normal follow-up and regular NSTs with your OB doctor. Increase rest and hydration throughout the day. * Attachments The following attachments cannot be sent through Care Everywhere. * Early Labor Signs (Discharge Care) (Mauritanian) * at 31 to 34 Weeks (Discharge Care) (Mauritanian) documented in this encounter Medications at Time [...] or self care documented in this encounter Nursing Notes * Candis Serna RN - 07/22/2020 1:50 PM CDT Pt presented to L&D with c/o low pelvic pressure. Reactive EFM with no cxn noted or palpated. VSS. Urine sent down to lab and report given to Dr. Keith. OK to [place] home per Dr. Keith. Candis Hollins documented in this encounter Plan of Treatment Not on file documented as of this encounter Procedures Procedure Name Priority Date/Time Associated Diagnosis Comments DRUG SCREEN, URINE L AND D WITH REFLEX CONFIRMATION STAT 07/22/2020 12:58 PM CDT URINALYSIS AND REFLEX TO MICROSCOPIC AND CULTURE STAT 07/22/2020 12:58 PM CDT URINALYSIS, MICROSCOPIC ONLY STAT 07/22/2020 12:58 PM CDT documented in this encounter Results * (ABNORMAL) Urinalysis, microscopic only (07/22/2020 12:58 PM CDT) WBC, ur 0-5 0 - 5 /HPF [facility] ([facility]) RBC, ur 0-2 0 - 2 /HPF [facility] ([facility]) Epithelial cells, squamous, ur 11-20(A) 0 - 5 /HPF [facility] ([facility]) Bacteria, ur Trace(A) [facility] ([facility]) Mucous, ur Present(A) [facility] ([facility]) Culture Reflex Comment Reflex conditions for urine culture (WBC >10) not met. [facility] ([facility]) Urine, clean voided 07/22/2020 12:58 PM CDT 07/22/2020 1:01 PM CDT Paul Keith MD LAB URINE ORDERABLES Final Result [facility] ([place]) [address] [facility] Department [place] [address] * Drug Screen, Urine L and D with Reflex Confirmation (07/22/2020 12:58 PM CDT) Amphetamine, ur Not Detected CutOff 500ng/mL [facility] ([facility]) Comment: Interpretive Data - Amphetamines: ??Samples containing greater than 500 ng/mL d-methamphetamine ??or other cross-reacting amphetamine compounds are reported as positive. ??Amphetamine immunoassays are subject to significant false positive rates due to cross-reactivity of non-amphetamine drugs. Current Interpretive Data was last reviewed 2018. Barbiturates, ur Not Detected CutOff 200ng/mL [facility] ([facility]) Comment: Interpretive Data - Barbiturates: ??Samples containing greater than 200 ng/mL secobarbital or other cross-reacting barbiturate compounds are reported as positive. ??False positive and false negative results are possible. Current Interpretive Data was last reviewed 2018. Benzodiazepines, ur Not Detected CutOff 100ng/mL [facility] ([facility]) Comment: Interpretive Data - Benzodiazepines: ??Samples containing greater than 100 ng/mL nordiazepam or other cross-reacting compounds are reported as positive. ?? False positive and false negative results are possible. ?? Current Interpretive Data was last reviewed 2018. Cannabinoids, ur Not Detected CutOff 50 ng/mL [facility] ([facility]) Comment: Interpretive Data - Cannabinoids: ??Samples containing greater than 50 ng/mL delta-9 THC -COOH or other cross-reacting compounds are reported as positive. ??False positive and false negative results are possible. ?? Current Interpretive Data was last reviewed 2018. Cocaine, ur Not Detected CutOff 150ng/mL [facility] ([facility]) Comment: Interpretive Data - Cocaine: ??Samples containing greater than 150 ng/mL benzoylecgonine or other cross-reacting compounds are reported as positive. False positive and false negative results are possible. Current Interpretive Data was last reviewed 2018. Fentanyl, Ur Not Detected Cutoff 1 ng/mL [facility] ([facility]) Comment: Interpretive Data - Fentanyls: ??Samples containing greater than 1 ng/mL fentanyl or other cross-reacting fentanyl compounds are reported as detected. ??False positive and false negative results are possible. Current Interpretive Data was last reviewed 2018. Methadone, ur Not Detected CutOff 300ng/mL [facility] ([facility]) Comment: Interpretive Data - Methadone: ??Samples containing greater than 300 ng/mL d,l-methadone or other cross-reacting compounds are reported as positive. ??False positive and false negative results are possible. Current Interpretive Data was last reviewed 2018. Opiates, ur Not Detected CutOff 300ng/mL [facility] ([facility]) Comment: Interpretive Data - Opiates: ??Samples containing greater than 300 ng/mL morphine or other cross-reacting compounds are reported as positive. ??False positive and false negative results are possible. Current Interpretive Data was last reviewed 2018. Oxycodone, ur Not Detected CutOff 100ng/mL [facility] ([facility]) Comment: Interpretive Data - Oxycodone: ??Samples containing greater than 100 ng/mL oxycodone or other cross-reacting compounds are reported as positive. ??False positive and false negative results are possible. ?? Current Interpretive Data was last reviewed 2018. Phencyclidine, ur Not Detected CutOff 25 ng/mL [facility] ([facility]) Comment: Interpretive Data - Phencyclidine: ??Samples containing greater than 25 ng/mL phencyclidine or other cross-reacting compounds are reported as positive. ??False positive and false negative results are possible. ?? Current Interpretive Data was last reviewed 2018. Urine Creatinine 170 mg/dL [facility] ([facility]) Comment: Interpretive Data Urine Creatinine: < 10 mg/dL is extremely dilute = or > 10 but < 20 mg/dL is dilute = or > 20 mg/dL is normal Current Interpretive Data was last revised on 2017. Urine 07/22/2020 12:5 8 PM CDT 07/22/2020 1:01 PM CDT Narrative [facility] ([facility]) - 07/22/2020 1:26 PM CDT Drug of Abuse screening is performed by immunoassay for medical purposes only. ??This is not to be used for Pain Management purposes. ??If Detected, confirmation testing will be performed for Amphetamines, Barbiturates, Benzodiazepines, Cannabinoids, Cocaine, Fentanyl, Methadone, Opiates, Oxycodone or Phencyclidine. Paul Keith MD LAB URINE ORDERABLES Final Result [facility] ([facility]) [address] [facility] Department [place] [address] * (ABNORMAL) Urinalysis reflex to microscopic and culture Urine, clean voided (07/22/2020 12:58 PM CDT) Color, ur Yellow Yellow [facility] ([facility]) Clarity, ur Clear Clear [facility] ([facility]) Specific gravity, ur 1.026(H) 1.010 - 1.025 [facility] ([facility]) pH, urine 6.5 [facility] ([facility]) Protein, ur ql Trace Negative [facility] ([facility]) Glucose, ur ql Negative Negative [facility] ([facility]) Ketones, ur Negative Negative [facility] ([facility]) Bilirubin, ur Negative Negative [facility] ([facility]) Blood, ur Negative Negative [facility] ([facility]) Urobilinogen, ur <2.0 <2.0 mg/dL [facility] ([facility]) Nitrite, ur Negative Negative [facility] ([facility]) Leukocyte esterase, ur 1+(A) Negative [facility] ([facility]) UA reflex comment Reflex to microscopic UA will be performed. [facility] ([facility]) Urine, clean voided 07/22/2020 12:58 PM CDT 07/22/2020 1:01 PM CDT Narrative [facility] ([facility]) - 07/22/2020 1:05 PM CDT ?? Urine pH is affected by diet, medications, systemic acid-base disturbances, and renal tubular function. ??pH may affect urinary stone formation. ??For example, urine pH below 6.0 may help reduce the tendency for calcium phosphate stones and pH greater than 6.0 may reduce the tendency for uric acid stone formation. Source: [place] [employer]. Last revised 04-23-2017 us Paul Keith MD LAB MICROBIOLOGY - GENERAL ORDERABLES Final Result [facility] ([place]) [address] [facility] Department [place] [address] documented in this encounter Visit Diagnoses Not on filedocumented in this encounter Care Teams Skip Load Driver Relationship Specialty Start Date End Date No, Physician PCP - General 11/01/16 documented as of this encounter
--- OUTSIDE RECORDS SUMMARY | 2024-04-02 11:55 | XMS_ITS | Encounter Summary ---
Author Organization [facility] Address [address] [place] [address] Care Team Providers Care Angiography Nurse Name Role Phone No, Physician Primary Care Provider [phone] Reason for Visit * Reason Comments Routine Visit Encounter Details Date Type Department Care Team (Late st Contact Info) Description 06/21/2020 2:00 PM FAA CERTIFIED POWERPLANT MECHANIC Office Visit Obstetrics and Gynecology Clinic [address] [facility] 3rd Floor [address] [place] [address] Giuliana Crisostomo MD [address] [place] [address] [facility] [phone] [place] [address] An Diaz MD [address] [place] [address] [address] [place] [address] [place], [place] [id number] Encounter for supervision of normal first in first trimester (Primary Dx); Tobacco use; Family Hx Congenital Heart Disease; Depression during in second trimester Discharge Disposition: Discharge to home or self care Social History Tobacco Use Types Packs/Day Years Used Date Smoking Tobacco: Never Smokeless Tobacco: Never Alcohol Use Standard Drinks/Week Comments No 0 (1 standard drink = 0.6 oz pur e alcohol) [place] Depression Scale Answer Date Recorded [place] Depression Scale Total 0 06/21/2020 The thought of harming myself has occurred to me . Never 06/21/2020 Comments Yes Sex and Gender Information Value Date Recorded Sex Assigned at Not on file Legal Sex Female 8:40 PM FAA CERTIFIED POWERPLANT MECHANIC Gender Identity Female 12/02/2022 6:55 PM CDT Sexual Orientation Straight 12/02/2022 6: 55 PM CDT documented as of this encounter Last Filed Vital Signs Vital Sign Reading Time Taken Comments Blood Pressure 122/56 06/21/2020 2:22 PM FAA CERTIFIED POWERPLANT MECHANIC Pulse 73 06/21/2020 2:22 PM FAA CERTIFIED POWERPLANT MECHANIC Temperature 35.8 ??C (96.4 ??F) 06/21/2020 2:22 PM CS T Respiratory Rate - - Oxygen Saturation 100% 06/21/2020 2:22 PM FAA CERTIFIED POWERPLANT MECHANIC Inhaled Oxygen Concentration - - Weight 82.7 kg (182 lb 6.4 oz) 06/21/2020 2:22 P M FAA CERTIFIED POWERPLANT MECHANIC Height - - Body Mass Index 30.35 02/03/2020 7:50 PM CDT documented in this encounter Patient Instructions * Patient Instructions* An Diaz MD - 06/21/2020 2:00 PM FAA CERTIFIED POWERPLANT MECHANIC [email or web address] For information on control. Contact us Office hours: Thursday-Thursday 8:30 AM-4:30 PM Phone number: [phone] Daytime: Call us if you have questions [...] medical problem, you can call us at [phone]. Please wait until the clinic is open for non-urgent needs as this emergency line cannot help with appointments, paperwork or prescriptions. If you have an emergency and cannot wait, please call 911 or go to the [facility] Emergency room. If you are having a problem with your or are in labor you can go to the [facility] (check in near elevator on first floor) [address] [facility] [place] [address]. CERTIFIED POWERPLANT MECHANIC CERTIFIED POWERPLANT MECHANIC documented in this encounter Discharge Disposition Disposition Code Departure Means Destination Discharge to home or self care documented in this encounter Progress Notes * An Diaz MD - 06/21/2020 2:00 PM CST OB RETURN VISIT 06/21/2020 Subjective: Steve Shi is a 24 y.o. at 26w0d who presents today for her return OB visit. Her is currently complicated by??family hx of CHD, tobacco use, marijuana use??and depression.?? Doing well, EPDS 0 today. Reports mood has been great. Smoking 1-2 cigarettes/day, unchanged from. Highly motivated to quit. movement: Yes VB?: No LOF?: No Ctxns?: No Objective: Vitals: 06/21/20 1422 BP: 122/56 BP Location: Left arm Patient Position: Sitting Pulse: 73 Temp: (!) 96.4 ??F TempSrc: Temporal SpO2: 100% Weight: 182 lb 6.4 oz (82.7 kg) Gen: No acute distress. Abdomen: Soft, nontender, gravid. Extremities: Warm, well perfused. No lower extremity edema/erythema/tenderness. FH: 144 bpm FHT: 26 cm Assessment/Plan: 24 y.o. at 26w0d. Problem List Tobacco use Overview IOB visit: Smokes 2-3 cigarettes/day. Counseled on risks of tobacco use in . Encouraged cessation, pt requested nicotine patch. Counseled on use, rx sent. 06/21: still at 1-2 cigarettes/day. Encouraged cessation. Family Hx Congenital Heart Disease Overview IOB [...] [x] TTE wnl [x] low risk NIPT [] growth US at 28 weeks (given EFW 12% on anatomy US) Encounter for supervision of normal in first trimester - Primary Overview First Trimester: [x] Dating Criteria: 1T with primary OB [x] Labs: Rh positive, Ab negative, Rubella imm, HIV NR, HepBSAg NR, RPR NR, VZV NI [x] Genetic Screening: low risk NIPT. Negative CF screening. [] Hgb electrophoresis (if indicated): send with 2T labs [x] GC/CT/trich negative, UCx negative [x] Pap: NILM, 03/09/20 [x] ASA ppx, not indicated [x] [facility] referral (if indicated) [x] Early 1 hour GTT (if indicated) 2nd Trimester: [x] Anatomy ultrasound [] CBC [] 1hr gtt at 24-28wks: done 06/21 [x] Flu Shot (Dec-Mar): s/p flu shot 03/06/20 [] Tdap (27-36wks) [] Rhogam (if Rh neg): 3rd Trimester: [] CBC/HIV/RPR/T&S [] GBS [] GC/CT (if indicated) Counseling: [x] Method of delivery: anticipate [] Method of contraception: undecided, provided w/ bedsider website [x] Method of feeding: breast [] Web Sizer: [] Car seat: [] PP depression [] Attg visits (___/4) [] COVID testing Relevant Orders POCT urinalysis dipstick (Completed) Glucose tolerance testing 50 gram gestational screen Hemoglobin analysis by electrophoresis CBC without differential RPR Depression Overview Reports hx of depression, never on meds with current mood waxing/waning. Denies SI/HI. EPDS 11 at IOB visit. Referred to [facility]. Started on zoloft at 04/04 visit. 05/07: Stopped zoloft 2/2 side effects. Mood much improved w/ self coping, has appt w/ counselor. 06/21: EPDS 0, mood great. [] EPDS/mood check q visit RTC 2 weeks for visit and growth scan (already scheduled). Pt seen and d/w Dr. Hazel. An Diaz MD 06/21/2020 Cosigned by Leyda Hazel DO at 06/27/2020 5:55 PM CDT CERTIFIED POWERPLANT MECHANIC Associated attestation - Leyda Hazel DO - 06/27/2020 5:55 PM CDT I have seen and examined the patient. I agree with the findings and plan of care as documented in the resident/fellow's note. 24 year old at 26+0 who presents for CHERYL. c/b tobacco use, depression, and family history of congenital heart disease. echo WNL. Encouraged smoking cessation. EDS 0 today. GCT done today. RTC In 4 weeks. Leyda Hazel DO * Natacha Tolbert RN - 06/21/2020 2:00 PM CST EPDS: 0. documented in this encounter Plan of Treatment Not on file documented as of this encounter Procedures Procedure Name Priority Date/Time Associated Diagnosis Comments GTT 50GM 1HR GESTATIONAL SCREEN Routine 06/21/2020 3:25 PM FAA CERTIFIED POWERPLANT MECHANIC Encounter for supervision of normal first in first trimester HEMOGLOBIN ANALYSIS BY ELECTROPHORESIS Routine 06/21/2020 3:25 PM FAA CERTIFIED POWERPLANT MECHANIC Encounter for supervision of normal first in first trimester RPR Routine 06/21/2020 3:25 PM FAA CERTIFIED POWERPLANT MECHANIC Encounter for supervision of normal first in first trimester CBC WITHOUT DIFFERENTIAL Routine 06/21/2020 3:25 PM FAA CERTIFIED POWERPLANT MECHANIC Encounter for supervision of normal first in first trimester POCT URINALYSIS DIPSTICK Routine 06/21/2020 2:24 PM FAA CERTIFIED POWERPLANT MECHANIC Encounter for supervision of normal first in first trimester documented in this encounter Results * RPR (06/21/2020 3:25 PM FAA CERTIFIED POWERPLANT MECHANIC) RPR Nonreactive Nonreactive [facility] Blood specimen (specimen) 06/21/2020 3:25 PM FAA CERTIFIED POWERPLANT MECHANIC 06/21/2020 4:11 PM FAA CERTIFIED POWERPLANT MECHANIC us An Diaz MD LAB MICROBIOLOGY - NERAL ORDERABLES Final Result [facility] Department [place] [address] * (ABNORMAL) CBC without differential (06/21/2020 3:25 PM FAA CERTIFIED POWERPLANT MECHANIC) Pathologist [facility] WBC 9.8 3.8 - 9.9 K/cumm [facility] Hgb 11.3(L) 11.9 - 15.5 g/dL [facility] Hct 35.0(L) 35.6 - 45.5 % [facility] Plt 226 150 - 400 K/cumm [facility] MPV 11.3 9.1 - 12.3 fL [facility] RBC 4.05 3.90 - 5.20 M/cumm [facility] MCV 86.4 81.3 - 96.4 fL [facility] MCH 27.9 27.1 - 33.3 pg [facility] MCHC 32.3 32.3 - 35.7 g/dL [facility] RDW CV 14.3 11.1 - 14.9 % [facility] RDW SD 44.8 35.7 - 48.1 fL [facility] NRBC abs 0.00 0.00 - 0.01 K/cumm [facility] Blood specimen (specimen) 06/21/2020 3:25 PM FAA CERTIFIED POWERPLANT MECHANIC 06/21/2020 4:11 PM FAA CERTIFIED POWERPLANT MECHANIC us An Diaz MD LAB BLOOD ORDERABLES Final Result [facility] Department [place] [address] * (ABNORMAL) Hemoglobin analysis by electrophoresis (06/21/2020 3:25 PM FAA CERTIFIED POWERPLANT MECHANIC) RBC 4.04 3.90 - 5.20 M/cumm [facility] Hgb 11.3(L) 11.9 - 15.5 g/dL [facility] MCV 86.4 81.3 - 96.4 fL [facility] Rdw 14.3 11.1 - 14.9 % [facility] Hgb electrophores is, interp Normal Hemoglobin Pattern - For Age [facility] Hgb A 97.5 96.0 - 98.5 % [facility] Hgb A2 2.5 1.5 - 3.2 % [facility] Hgb F <0.4 0.0 - 0.9 % [facility] Blood specimen (specimen) 06/21/2020 3:25 PM FAA CERTIFIED POWERPLANT MECHANIC 06/21/2020 4:11 PM FAA CERTIFIED POWERPLANT MECHANIC us An Diaz MD LAB BLOOD ORDERABLES Final Result [facility] [place] [address] * Glucose tolerance testing 50 gram gestational screen (06/21/2020 3:25 PM FAA CERTIFIED POWERPLANT MECHANIC) GTT 50g gest screen 81 <=140 mg/dL [facility] Comment: Interpretive Data Used for suspected gestational [...] last revised on 2020. Blood specimen (specimen) 06/21/2020 3:25 PM FAA CERTIFIED POWERPLANT MECHANIC 06/21/2020 4:11 PM FAA CERTIFIED POWERPLANT MECHANIC us An Diaz MD LAB BLOOD ORDERABLES Final Result [facility] Department [place] [address] * POCT urinalysis dipstick (06/21/2020 2:24 PM FAA CERTIFIED POWERPLANT MECHANIC) Glucose, ur, POC Negative Negative mg/dL Ketones, ur, POC Negative Negative Blood, ur, POC Negative Negative Protein, ur, POC Negative Negative Nitrite, ur, POC Negative Negative Leukocytes, ur, POC Negative Negative Lot Number [id number] Urine 06/21/2020 2:24 PM FAA CERTIFIED POWERPLANT MECHANIC us An Diaz MD POINT OF CARE TEST OR DERABLES Final Result documented in this encounter Visit Diagnoses Diagnosis Encounter for supervision of normal first in first trimester- Primary Tobacco use Family Hx Congenital Heart Disease Unspecified congenital anomaly of heart Depression during in second trimester documented in this encounter Care Teams Angiography Nurse Relationship Specialty Start Date End Date No, Physician PCP - General 11/01/16 documented as of this encounter
--- OUTSIDE RECORDS SUMMARY | 2024-04-02 11:55 | XMS_ITS | Encounter Summary ---
Author Organization [facility] Healthcare Address [address] [place] [address] Care Team Providers Care Control And Recovery Combat Rescue Name Role Phone No, Physician Primary Care Provider [phone] Reason for Referral * Diagnostic Imaging (Routine) - Closed Specialty Diagnoses / Procedures Referred By Riaz harvey Referred To Contact Diagnoses Encounter for supervision of normal first in first trimester Procedures US OB detail anatomy single or first gestation An Diaz MD [address] [facility] [address] [place] [address] Phone: tel: fax: [address] [phone] Referral ID Status Reason Start Date Expiration Date Visits Re quested Visits Authorized [id number] Closed 04/04/2020 05/04/2021 1 1 ICAL EQUIPMENT REPAIRER Reason for Visit * Diagnostic Imaging (Routine) - Closed Specialty Diagnoses / Procedures Referred By Riaz harvey Referred To Contact Diagnoses Encounter for supervision of normal first in first trimester Procedures US OB detail anatomy single or first gestation An Diaz MD [address] [facility] [place] [address] [place] [address] Phone: tel: fax: [address] [phone] Referral ID Status Reason Start Date Expiration Date Visits Re quested Visits Authorized [id number] Closed 04/04/2020 05/04/2021 1 1 Encounter Details Date Type Department Care Team (Latest Contact Info) Description 05/07/2020 9:15 AM CHEMICAL EQUIPMENT REPAIRER - 05/07/2020 11:59 PM CHEMICAL EQUIPMENT REPAIRER Hospital Encounter [facility] - Ultrasound [address] [facility] [place] [address] [place] [address] [place] [address] [address] [place] [address] Encounter for supervision of normal first in first trimester Discharge Disposition: Discharge to home or self care Social History Tobacco Use Types Packs/Day Years Used Date Smoking Tobacco: Never Smokeless Tobacco: Never Alcohol Use Standard Drinks/Week Comments No 0 (1 standard drink = 0.6 oz pur e alcohol) Randolph Depression Scale Answer Date Recorded Randolph Depression Scale Total 11 04/04/2020 The thought of harming myself has occurred to me . Never 04/04/2020 Comments Yes Sex and Gender Information Value Date Recorded Sex Assigned at Not on file Legal Sex Female 8:40 PM CHEMICAL EQUIPMENT REPAIRER Gender Identity Female 12/02/2022 6:55 PM [...] Priority Date/Time Associated Diagnosis Comments US OB DETAIL ANATOMY SINGLE OR FIRST GESTATION Schedule Routine, Read Routine (OP Routine) 05/07/2020 9:44 AM CHEMICAL EQUIPMENT REPAIRER Encounter for supervision of normal first in first trimester documented in this encounter Results * US OB detail anatomy single or first gestation (05/07/2020 9:44 AM CHEMICAL EQUIPMENT REPAIRER) Fetus# Fetus1 VIEWPOINT Placenta Details posterior, Previa-no, no placental masses VIEWPOINT Estimated Weight 259 g&grams VIEWPOINT Presentation Breech VIEWPOINT Anatomical Region Laterality Modality Body N/A Ultrasound 05/07/2020 9:48 AM CHEMICAL EQUIPMENT REPAIRER us An Diaz MD IMG OB US PROCEDURES Final Result documented in this encounter Visit Diagnoses Diagnosis Encounter for supervision of normal first in first trimester documented in this encounter Care Teams Control And Recovery Combat Rescue Relationship Specialty Start Date End Date No, Physician PCP - General 11/01/16 documented as of this encounter
--- OUTSIDE RECORDS SUMMARY | 2024-04-02 11:55 | XMS_ITS | Encounter Summary ---
Author Organization [facility] Healthcare Address [address] [place] [address] Care Team Providers Care Manager Of Corporate Name Role Phone No, Physician Primary Care Provider [phone] Reason for Visit * Reason Comments NST/BPP Visit Encounter Details Date Type Department Care Team (Late st Contact Info) Description 08/13/2020 11:00 AM CDT Procedure visit [facility]stetrics and Gynecology Clinic [address] [facility] 3rd Floor [address] [place] [address] Giuliana Crisostomo MD [address] [facility] [phone] [place], [place] [id number] Poor growth affecting management of mother in [...] of Binge Drinking Not on file 07/12 [place] Depression Scale Answer Date Recorded [place] Depression Scale Total 0 07/05/2020 The thought of harming myself has occurred to me . Never 07/05/2020 Comments Yes Sex and Gender Information Value Date Recorded Sex Assigned at Not on file Legal Sex Female 8:40 PM HAT BAND ATTACHER Gender Identity Female 12/02/2022 6:55 PM CDT Sexual Orientation Straight 12/02/2022 6: 55 PM CDT documented as of this encounter Last Filed Vital Signs Vital Sign Reading Time Taken Comments Blood Pressure 117/60 08/13/2020 11:11 AM CDT Pulse 95 08/13/2020 11:11 AM CDT Temperature - - Respiratory Rate - - Oxygen Saturation - - Inhaled Oxygen Concentration - - Weight - - Height - - Body Mass Index - - documented in this encounter Discharge Disposition Disposition Code Departure Means Destination Discharge to home or self care documented in this encounter Progress Notes * Natacha Tolbert RN - 08/13/2020 11:00 AM CDT NST reactive per Dr. Rios. documented in this encounter Plan of Treatment Not on file documented as of this encounter Visit Diagnoses Diagnosis Poor growth affecting management of mother in third trimester, fetus 1 of multiple gestation documented in this encounter Care Teams Manager Of Corporate Relationship Specialty Start Date End Date No, Physician PCP - General 11/01/16 documented as of this encounter
--- OUTSIDE RECORDS SUMMARY | 2024-04-02 11:55 | XMS_ITS | Encounter Summary ---
Author Organization [facility] Address [address] [place] [address] Phone Care Team Providers Care Director Of Women'S Services Name Role Phone No, Physician Primary Care Provider [phone] Encounter Details Date Type Department Care Team (Late st Contact Info) Description 04/10/2020 Documentation [facility] Psychiatry [address] [facility] [address] [place] [address] Lanette Bryant, PhD Social History Tobacco Use Types Packs/Day Years Used Date Smoking Tobacco: Never Smokeless Tobacco: Never Alcohol Use Standard Drinks/Week Comments No 0 (1 standard drink = 0.6 oz pur e alcohol) [place] Depression Scale Answer Date Recorded [place] Depression Scale Total 11 04/04/2020 The thought of harming myself has occurred to me . Never 04/04/2020 Comments Yes Sex and Gender Information Value Date Recorded Sex Assigned at Not on file Legal Sex Female 8:40 PM BOX STAPLER Gender Identity Female 12/02/2022 6:55 PM CDT Sexual Orientation Straight 12/02/2022 6: 55 PM CDT documented as of this encounter Progress Notes * Lanette Bryant LMSW - 04/10/2020 8:58 AM CST [facility] Referral Acknowledgement Brenda Shi 1995 Referral Source:OB Resident I would like to refer this new OB pt to you all for her anxiety/depression. I saw her today for initial OB visit and EPDS was 11. I started her on zoloft. She would love to speak with you by phone and can be reached at [phone]. ?? Status: and Current GA: 14 Most recent EPDS Date, if administered:04/04 Score: 11 SI/HI:unknown Follow Up Plan:Plan to meet with pt at subsequent visit and Via Phone: prior to next visit For questions or follow up for OBGYN Clinic referrals, please jonathan Crawford LCSW and Lanette rByant LMSW. Lanette Bryant LMSW STAPLER documented in this encounter Plan of Treatment Not on file documented as of this encounter Visit Diagnoses Not on filedocumented in this encounter Care Teams Director Of Women'S Services Relationship Specialty Start Date End Date No, Physician PCP - General 11/01/16 documented as of this encounter
--- OUTSIDE RECORDS SUMMARY | 2024-04-02 11:56 | XMS_ITS | Encounter Summary ---
Author Organization [facility] Healthcare Address [address] [place] [address] Care Team Providers Care Research Leader Name Role Phone No, Physician Primary Care Provider [phone] Reason for Referral * Cardiology (Routine) - Closed Specialty Diagnoses / Procedures Referred By Riaz harvey Referred To Contact Diagnoses Encounter for supervision of normal first in first trimester Procedures Echocardiogram An Diaz MD [address] [facility] [address] [place] [address] [address] Phone: tel: fax: [facility] (All Locations) Referral ID Status Reason Start Date Expiration Date Visits Re quested Visits Authorized [id number] Closed 04/04/2020 05/04/2021 1 1 ING MACHINE OPERATOR HELPER * Diagnostic Imaging (Routine) - Closed Specialty Diagnoses / Procedures Referred By Riaz harvey Referred To Contact Diagnoses Encounter for supervision of normal first in first trimester Procedures US OB detail anatomy single or first gestation An Diaz MD [address] [facility] [place] [address] [place] [address] [place] [address] Phone: tel: fax: [address] [phone] Referral ID Status Reason Start Date Expiration Date Visits Re quested Visits Authorized [id number] Closed 04/04/2020 05/04/2021 1 1 ING MACHINE OPERATOR HELPER Reason for Visit * Reason Comments Initial Visit Encounter Details Date Type Department Care Team (Late st Contact Info) Description 04/04/2020 8:30 AM COATING MACHINE OPERATOR HELPER Initial Obstetrics and Gynecology Clinic [address] [facility] 3rd Floor [address] [place] [address] Giuliana Crisostomo MD [address] [facility] [phone] [place] [address] An Diaz MD [address] [facility] [place] [address] [place] [address] [place], [place] [id number] GA: [id number] Social History Tobacco Use Types Packs/Day Years Used Date Smoking Tobacco: Never Smokeless Tobacco: Never Alcohol Use Standard Drinks/Week Comments No 0 (1 standard drink = 0.6 oz pur e alcohol) [place] Depression Scale Answer Date Recorded [place] Depression Scale Total 11 04/04/2020 The thought of harming myself has occurred to me . Never 04/04/2020 Comments Yes Sex and Gender Information Value Date Recorded Sex Assigned at Not on file Legal Sex Female 8:40 PM COATING MACHINE OPERATOR HELPER Gender Identity Female 12/02/2022 6:55 PM CDT Sexual Orientation Straight 12/02/2022 6: 55 PM CDT documented as of this encounter Last Filed Vital Signs Vital Sign Reading Time Taken Comments Blood Pressure 120/59 04/04/2020 8:50 AM COATING MACHINE OPERATOR HELPER Pulse 81 04/04/2020 8:50 AM COATING MACHINE OPERATOR HELPER Temperature 36.3 ??C (97.4 ??F) 04/04/2020 8:50 AM CS T Respiratory Rate - - Oxygen Saturation 100% 04/04/2020 8:50 AM COATING MACHINE OPERATOR HELPER Inhaled Oxygen Concentration - - Weight 70 kg (154 lb 4.8 oz) 04/04/2020 8:50 AM COATING MACHINE OPERATOR HELPER Height - - Body Mass Index 25.68 02/03/2020 7:50 PM CDT documented in this encounter Patient Instructions * Patient Instructions* An Leigh MD - 04/04/2020 8:30 AM COATING MACHINE OPERATOR HELPER Contact us Office hours: Thursday-Thursday 8:30 AM-4:30 PM Phone number: [phone] Daytime: Call us if you have questions [...] medical problem, you can call us at [phone]. Please wait until the clinic is open for non-urgent needs as this emergency line cannot help with appointments, paperwork or prescriptions. If you have an emergency and cannot wait, please call 911 or go to the [facility] Emergency room. If you are having a problem with your or are in labor you can go to the [facility] (check in near elevator on first floor) [address] [facility], [address]th [place] [address]. ING MACHINE OPERATOR HELPER documented in this encounter Ordered Prescriptions Prescription Sig Dispense Quantity Refills Last Filled Start Date End Date nicotine (NICODERM CQ) [address] 1 patch on the skin daily 30 patch 04/04/2020 1 sertraline (ZOLOFT) 50 mg tabletIndications:An xiety with Depression Take 1 tablet (50 mg total) by mouth daily 30 tablet 5 04/04/2020 1 ondansetron ODT (ZOFRAN-ODT) 4 mg disintegrating tablet Take 1 tablet (4 mg total) by mouth every 8 (eight) hours as needed for nausea or vomiting 20 tablet 5 04/04/2020 1 documented in this encounter Progress Notes * An Leigh MD - 04/04/2020 8:30 AM CST Initial OB Visit Steve Shi is a 24 y.o. at 14w6d by 1T who presents today for OB consult visit. Pt is referred by Naomi Lawrence NP for a family hx of congenital heart disease. Her is currently complicated by family hx of CHD, tobacco use, marijuana use and depression. Reports sister born with tetrology of fallot. Denies personal history of CHD however several cousins on maternal side with CHD (known diagnosis). Smokes 2-3 cigarettes/day with daily MJ use. Unsure of LMP (approximately mid-December). Formal US (reports and images available for review under imaging) with viable IUP at 11w5d (ESTUARDO 09/27/20). Desired . Taking vitamin. Patient Active Problem List Diagnosis ??? Encounter for supervision of normal in first trimester ??? Family Hx Congenital Heart Disease ??? Tobacco use ??? Marijuana use/Hx ecstasy use ??? Depression Morning sickness? yes, reports nausea/vomiting most days. Able to tolerate PO movement? no Leakage of fluid? no Vaginal bleeding? no Contractions? no Obstetric History: OB History Para Term AB Living 1 SAB TAB Ectopic Multiple Live Births # Outcome Date GA Lbr Smith/2nd Weight Sex Delivery Anes PTL Lv 1 Current Genetic History: [-] Mother's Age > 34 years [-] Sickle Cell Disease or Trait () [-] Thalasemia (Argentine, Lithuanian, Medit or ; MCV <80) [-] Cliff Sachs Disease (Amish, Cajun, Sami South African) [-] Down's Syndrome [-] Neural Tube Defects (Meningomyelocele, Spina Bifida or Anencephaly) [-] Other Developmental Delay [-] Cystic Fibrosis [-] Benson's Chorea [-] Muscular Dystrophy [-] Hemophilia [-] Other Heritable condition Medical History: Past Medical History: Diagnosis Date ??? Depression Scheduled Meds: Continuous Infusions:No current facility-administered medications for this visit. PRN Meds:. No Known Allergies Surgical History: Past Surgical History: Procedure Laterality Date ??? EAR SURGERY Family History: Family History Problem Relation Age of Onset ??? Other Father Alive and well; ??? Asthma Mother Asthma; ??? Allergies Maternal Grandmother Allergies; Social History: Social History Social History Narrative ??? Not on file Physical Exam: Vitals: BP 120/59 Pulse 81 Temp 97.4 ??F (Temporal) Wt 154 lb 4.8 oz (70 kg) LMP 12/27/2019 SpO2 100% BMI 25.68 kg/m?? General: Well appearing, pleasant female in NAD Heart: Regular rate and rhythm, no murmurs/gallops/rubs apprecaited Lungs: Clear to auscultation bilaterally, no wheeze or crackles Abdomen: Soft, non-tender, non-distended Extremities: Warm and well perfused, non-tender, no lower extremity edema BSUS: +FHTs Assessment and Plan: Steve Shi is a 24 y.o. at 14w6d by with complicated by: Problem List Tobacco use Overview Smokes 2-3 cigarettes/day. Counseled on risks of tobacco use in . Encouraged cessation, ptrequested nicotine patch. Counseled on use, rx sent. Marijuana use/Hx ecstasy use Overview Counseled that [...] L&D Family Hx Congenital Heart Disease Overview Pt w/ sister w/ Tetrology of Fallot. Patient and FOB without hx of CHD. Several cousins on maternalside w/ CHD (unknown diagnosis). Counseled patient that risk of fetus being affected by CHD is likely very low. Discussed background population risk of any anomaly. Offered patient genetic counseling given FHx, pt declines at this time. Plan -Pt desires quad screen next visit -Specialized anatomy scan - TTE Encounter for supervision of normal in first trimester - Primary Overview First Trimester: [x] Dating Criteria: 1T with primary OB [x] Labs: Rh positive, Ab negative, Rubella imm, HIV NR, HepBSAg NR, RPR NR, VZV NI [] Genetic Screening: desires quad screen, will check next visit. Negative CF screening. [] Hgb electrophoresis (if indicated) [] GC/CT/trich negative, UCx (not yet done) [x] Pap: NILM, 03/09/20 [x] ASA ppx, not indicated [x] [facility] referral (if indicated) [x] Early 1 hour GTT (if indicated) 2nd Trimester: [] Anatomy ultrasound (specialized anatomy ordered) [] CBC [] 1hr gtt at 24-28wks: [x] Flu Shot (Dec-Dec): s/p flu shot 03/06/20 [] Tdap (27-36wks) [] Rhogam (if Rh neg): 3rd Trimester: [] CBC/HIV/RPR/T&S [] GBS [] GC/CT (if indicated) Counseling: [] Method of delivery: ____ [] Method of contraception: to be discussed when viable [] Method of feeding: ____ [] Synthetic Department Supervisor: [] Car seat: [] PP depression [] Attg visits (___/4) [] COVID testing Relevant Orders POCT urinalysis dipstick (Completed) US OB detail anatomy single or first gestation Echocardiogram Ambulatory referral to Dermatology Urine culture Urine, clean voided (Completed) Drugs of Abuse Screen, Urine with Reflex Confirmation (Completed) Depression Overview Reports hx of depression, never on meds with current mood waxing/waning. Denies SI/HI. EPDS 11 at IOB visit. Referred to [facility]. Started on zoloft at 04/04 visit. [] EPDS/mood check q visit Relevant Medications sertraline (ZOLOFT) 50 mg tablet nicotine (NICODERM CQ) 7 mg RTC 4 weeks for visit and anatomy US. TTE ordered. Reviewed SAB precautions, [facility] location/information. Pt interested in transferring care to [facility]. The patient was seen and discussed with Dr. Hazel. An Diaz MD Cosigned by Leyda Hazel DO at 04/16/2020 3:01 PM COATING MACHINE OPERATOR HELPER ING MACHINE OPERATOR HELPER ING MACHINE OPERATOR HELPER Associated attestation - Leyda Hazel DO - 04/16/2020 3:01 PM COATING MACHINE OPERATOR HELPER I have seen and examined the patient. I agree with the findings and plan of care as documented in the resident/fellow's note. 24 year old at 14+6 who presents for OB Visit. Patient has family history of CHD, but does nothave personal history of CHD. Will return in 4 weeks for anatomy can and will set up echo. Leyda Hazel, DO documented in this encounter Plan of Treatment Not on file documented as of this encounter Procedures Procedure Name Priority Date/Time Associated Diagnosis Comments DRUGS OF ABUSE SCREEN, URINE WITH REFLEX CONFIRMATION Routine 04/04/2020 10:56 AM COATING MACHINE OPERATOR HELPER Encounter for supervision of normal first in first trimester URINE CULTURE Routine 04/04/2020 10:56 AM COATING MACHINE OPERATOR HELPER Encounter for supervision of normal first in first trimester POCT URINALYSIS DIPSTICK Routine 04/04/2020 8:58 AM COATING MACHINE OPERATOR HELPER Encounter for supervision of normal first in first trimester documented in this encounter Results * Echocardiogram (05/25/2020 1:06 PM COATING MACHINE OPERATOR HELPER) Anatomical Region Laterality Modality Ultrasound 05/25/2020 12:0 7 PM COATING MACHINE OPERATOR HELPER Narrative 05/25/2020 1:02 PM COATING MACHINE OPERATOR HELPER ?[facility] Station ? Echo Report ?[facility] [address], [place] ??[address] ?[phone] ? Patient Name: STEVE SHI ? Study Type: Echo ? Patient : 1995 ? Exam Date: ??05/25/2020 ?Age: ?24Y ? Exam Time: ??12:07:00 PM ? Referring MD: GEORGINA DOSS Height: ? 165cm ?Weight: ? 72.3kg ? BSA: ?1.8 m2 ? Sex: FEMALE ? BP: ? 99/62 ?Sales Host: Dami Rasmussen ? Account:[id number] ? Indications for Study:FAMILY HISTORY OF CONGENITAL [...] Normal. Septum: PFO. Defect sz. Moderate ??Shunt: [id number] ?? Annular Dimensions: ??TV: 6.9mm MV:6.2mm ??LVID:8mm [...] Procedure Note Dale Amaro DO - 05/25/2020 [facility] Echo Report [address] [address] Patient Name: STEVE SHI Study Type: Echo Patient : 1995 Exam Date: 05/25/2020 Age: 24Y Exam Time: 12:07:00 PM Referring MD: GEORGINA DOSS Height: 165cm Weight: 72.3kg BSA: 1.8 m2 Sex: FEMALE BP: 99/62 Sales Host: Dami Rasmussen Account:[id number] Indications for Study:FAMILY HISTORY OF CONGENITAL HEART [...] Normal. Septum: PFO. Defect sz. Moderate Shunt: [id number] Annular Dimensions: TV: 6.9mm MV:6.2mm LVID:8mm RVID:7.8mm [...] Signed 05/25/2020 01:02 PM Dale Amaro DO us An Diaz MD CV ECHO PROCEDURES Fi nal Result * US OB detail anatomy single or first gestation (05/07/2020 9:44 AM COATING MACHINE OPERATOR HELPER) Fetus# Fetus1 VIEWPOINT Placenta Details posterior, Previa-no, no placental masses VIEWPOINT Estimated Weight 259 g&grams VIEWPOINT Presentation Breech VIEWPOINT Anatomical Region Laterality Modality Body N/A Ultrasound 05/07/2020 9:48 AM COATING MACHINE OPERATOR HELPER An Diaz MD IM OB US PROCEDURES Final Result * (ABNORMAL) Drugs of Abuse Screen, Urine with Reflex Confirmation (04/04/2020 10:56 AM COATING MACHINE OPERATOR HELPER) Pathologist [facility] Amphetamine, ur Not Detected CutOff 500ng/mL [facility] Comment: Interpretive Data - Amphetamines: ??Samples containing greater than 500 ng/mL d-methamphetamine ??or other cross-reacting amphetamine compounds are reported as positive. ??Amphetamine immunoassays are subject to significant false positive rates due to cross-reactivity of non-amphetamine drugs. Current Interpretive Data was last reviewed 2018. Barbiturates, ur Not Detected CutOff 200ng/mL [facility] Comment: Interpretive Data - Barbiturates: ??Samples containing greater than 200 ng/mL secobarbital or other cross-reacting barbiturate compounds are reported as positive. ??False positive and false negative results are possible. Current Interpretive Data was last reviewed 2018. Benzodiazepines, ur Not Detected CutOff 100ng/mL [facility] Comment: Interpretive Data - Benzodiazepines: ??Samples containing greater than 100 ng/mL nordiazepam or other cross-reacting compounds are reported as positive. ?? False positive and false negative results are possible. ?? Current Interpretive Data was last reviewed 2018. Cannabinoids, ur Detected(A) CutOff 50 ng/mL [facility] Comment: Interpretive Data - Cannabinoids: ??Samples containing greater than 50 ng/mL delta-9 THC -COOH or other cross-reacting compounds are reported as positive. ??False positive and false negative results are possible. ?? Current Interpretive Data was last reviewed 2018. Cocaine, ur Not Detected CutOff 150ng/mL [facility] Comment: Interpretive Data - Cocaine: ??Samples containing greater than 150 ng/mL benzoylecgonine or other cross-reacting compounds are reported as positive. False positive and false negative results are possible. Current Interpretive Data was last reviewed 2018. Fentanyl, Ur Not Detected Cutoff 1 ng/mL [facility] Comment: Interpretive Data - Fentanyls: ??Samples containing greater than 1 ng/mL fentanyl or other cross-reacting fentanyl compounds are reported as detected. ??False positive and false negative results are possible. Current Interpretive Data was last reviewed 2018. Methadone, ur Not Detected CutOff 300ng/mL [facility] Comment: Interpretive Data - Methadone: ??Samples containing greater than 300 ng/mL d,l-methadone or other cross-reacting compounds are reported as positive. ??False positive and false negative results are possible. Current Interpretive Data was last reviewed 2018. Opiates, ur Not Detected CutOff 300ng/mL [facility] Comment: Interpretive Data - Opiates: ??Samples containing greater than 300 ng/mL morphine or other cross-reacting compounds are reported as positive. ??False positive and false negative results are possible. Current Interpretive Data was last reviewed 2018. Oxycodone, ur Not Detected CutOff 100ng/mL [facility] Comment: Interpretive Data - Oxycodone: ??Samples containing greater than 100 ng/mL oxycodone or other cross-reacting compounds are reported as positive. ??False positive and false negative results are possible. ?? Current Interpretive Data was last reviewed 2018. Phencyclidine, ur Not Detected CutOff 25 ng/mL [facility] Comment: Interpretive Data - Phencyclidine: ??Samples containing greater than 25 ng/mL phencyclidine or other cross-reacting compounds are reported as positive. ??False positive and false negative results are possible. ?? Current Interpretive Data was last reviewed 2018. Urine Creatinine 57 mg/dL [facility] Comment: Interpretive Data Urine Creatinine: < 10 mg/dL is extremely dilute = or > 10 but < 20 mg/dL is dilute = or > 20 mg/dL is normal Current Interpretive Data was last revised on 2017. Urine 04/04/2020 10:5 6 AM COATING MACHINE OPERATOR HELPER 04/04/2020 3:50 PM COATING MACHINE OPERATOR HELPER Narrative [facility] - 04/04/2020 4:33 PM COATING MACHINE OPERATOR HELPER Drug of Abuse screening is performed by immunoassay for medical purposes only. ??This is not to be used for Pain Management purposes. ??If Detected, confirmation testing will be performed for Amphetamines, Cocaine, Fentanyl, Methadone, Opiates, Oxycodone or Phencyclidine. us An Diaz MD LAB URINE ORDERABLES Final Result [facility] [place] [address] * Urine culture Urine, clean voided (04/04/2020 10:56 AM COATING MACHINE OPERATOR HELPER) Report Final Report: No growth [facility] Urine, clean voided 04/04/2020 10:56 AM COATING MACHINE OPERATOR HELPER 04/04/2020 3:33 PM COATING MACHINE OPERATOR HELPER Narrative [facility] - 04/05/2020 4:57 PM COATING MACHINE OPERATOR HELPER Testing performed by [facility] ([phone]) us An Diaz MD LAB MICROBIOLOGY - GE NERAL ORDERABLES Final Result Performing Organization Address City/[facility]/ZIP Co de Phone Number [facility] Department [place] [address] * POCT urinalysis dipstick (04/04/2020 8:58 AM COATING MACHINE OPERATOR HELPER) Glucose, ur, POC Negative Negative mg/dL Bilirubin, ur, POC Negative Negative, Small, Moderate, Large Ketones, ur, POC Negative Negative Blood, ur, POC Negative Negative Protein, ur, POC Negative Negative Nitrite, ur, POC Negative Negative Leukocytes, ur, POC Negative Negative Lot Number [id number] Urine 04/04/2020 8:58 AM COATING MACHINE OPERATOR HELPER us An Diaz MD POINT OF CARE TEST OR DERABLES Final Result documented in this encounter Visit Diagnoses Diagnosis Encounter for supervision of normal first in first trimester- Primary Family Hx Congenital Heart Disease Unspecified congenital anomaly of heart Tobacco use Marijuana use Depression during in second trimester Encounter for supervision of normal first in first trimester documented in this encounter Care Teams Research Leader Relationship Specialty Start Date End Date No, Physician PCP - General 11/01/16 documented as of this encounter
--- OUTSIDE RECORDS SUMMARY | 2024-04-02 11:56 | XMS_ITS | Encounter Summary ---
Author Organization [facility] Healthcare Address [address] [place] [address] Care Team Providers Care Pt Escort Name Role Phone No, Physician Primary Care Provider [phone] Reason for Visit * Reason Comments Blister Encounter Details Date Type Department Care Team (Late st Contact Info) Description 04/16/2018 3:19 PM DRAIN CLEANER PLUMBER - 04/16/2018 4:18 PM DRAIN CLEANER PLUMBER Emergency [facility] Emergency Department [address] [place] [address] [place] [id number] [facility] [address] [place] [address] Blister of right lower leg, initial encounter (Primary Dx) Discharge Disposition: Discharge to home or self care Social History Tobacco Use Types Packs/Day Years Used Date Smoking Tobacco: Never Smokeless Tobacco: Never Alcohol Use Standard Drinks/Week Comments No 0 (1 standard drink = 0.6 oz pur e alcohol) Comments No Sex and Gender Information Value Date Recorded Sex Assigned at Not on file Legal Sex Female 8:40 PM DRAIN CLEANER PLUMBER Gender Identity Female 12/02/2022 6:55 PM CDT Sexual Orientation Straight 12/02/2022 6: 55 PM CDT documented as of this encounter Last Filed Vital Signs Vital Sign Reading Time Taken Comments Blood Pressure 109/59 04/16/2018 2:30 PM DRAIN CLE[employer]UMBER Pulse 67 04/16/2018 2:30 PM DRAIN CLE[employer]ER [employer]UMBER Temperature 37.2 ??C (98.9 ??F) 04/16/2018 2:30 PM CS T Respiratory Rate 18 04/16/2018 2:30 PM DRAIN CLEANER [employer]UMBER Oxygen Saturation 100% 04/16/2018 2:30 PM DRAIN CLEANER [employer]UMBER Inhaled Oxygen Concentration - - Weight 70.8 kg (156 lb) 04/16/2018 2:30 PM DRAIN CLE[employer]ER [employer]UMBER Height 165.1 cm (5' 5 ) 04/16/2018 2:30 PM DRAIN CLEANER [employer]UMBER Body Mass Index 25.96 04/16/2018 2:30 PM DRAIN CLEANER [employer]UMBER documented in this encounter Discharge Instructions * Attachments The following attachments cannot be sent through Care Everywhere. * Blister (Adult) (Cypriot) documented in this encounter Medications at Time of Discharge cephalexin (KEFLEX) 500 mg capsule Take 1 capsule (500 mg total) by mouth 3 (three) times a day for 10 days. 30 capsule 04/16/2018 04/26/2018 ibuprofen (ADVIL,MOTRIN) 600 mg tablet Take 1 tablet (600 mg total) by mouth every 6 (six) hours as needed for pain. 20 tablet 04/16/2018 08/05/2018 documented as of this encounter Ordered Prescriptions Prescription Sig Dispense Quantity Refills Last Filled Start Date End Date cephalexin (KEFLEX) 500 mg capsule Take 1 capsule (500 mg total) by mouth 3 (three) times a day for 10 days. 30 capsule 04/16/2018 9 ibuprofen (ADVIL,MOTRIN) 600 mg tablet Take 1 tablet (600 mg total) by mouth every 6 (six) hours as needed for pain. 20 tablet 04/16/2018 9 documented in this encounter Discharge Disposition Disposition Code Departure Means Destination Discharge to home or self care documented in this encounter ED Notes * Rogers Solorzano NP - 04/16/2018 3:25 PM CST Chief Complaint Patient presents with ??? Blister 3:33PM: Brenda Shi is a 22 year old female smoker, with no significant medical history, presentingto the ED complaining of a fluid filled lesion on her lower right trujillo that she first noticed earlier this morning. Patient states that she initially believed the lesion to be secondary to a spider bite; however, now she believes it could be a burn since she fell asleep in front of a space heater ye ster evening. She endorses increased tenderness and erythema to the area that worsening following her shower earlier this morning. Pt denies experiencing any other associated symptoms. She also denies any prior medical history, medication noncompliance, or known allergies. There are no other complaints at this time. History reviewed. No pertinent past medical history. Past Surgical History: Procedure Laterality Date ??? EAR SURGERY HOME MEDICATIONS : cephalexin (KEFLEX) 500 mg capsule ibuprofen (ADVIL,MOTRIN) 600 mg tablet No Known Allergies Review of Systems All systems reviewed and are negative or non-contributory for this patients presentation today other than as stated in the HPI. Physical Exam Constitutional: She is oriented to person, place, and time. She appears well- developed and well-nourished. HENT: Head: Normocephalic and atraumatic. Eyes: Conjunctivae are normal. Neck: Normal range of motion. Neck supple. Pulmonary/Chest: Effort normal. Musculoskeletal: Normal range of motion. Neurological: She is alert and oriented to person, place, and time. Skin: Skin is warm and dry. There is erythema. 2mm blister noted to the right anterior left trujillo with surrounding erythema and tenderness, TTP Nursing note and vitals reviewed. BP 109/59 (BP Location: Right arm, Patient Position: Sitting) Pulse 67 Temp 37.2 ??C (98.9 ??F)(Oral) Resp 18 Ht 165.1 cm (5' 5 ) Wt 70.8 kg (156 lb) LMP 03/09/2018 SpO2 100% BMI 25.96 kg/m?? Labs Reviewed - No data to display No orders to display Procedures MDM ED Course as of Apr 16 1603 Time: 04/16 152 Comment: Patient has been advised on smoking cessation. Spent between 3-10 minutes discussing the benefits of cessation, as well as the risks of persistent tobacco use. Patient has been encouraged todiscuss pharmacological options with their family doctor if they fail to quit. By: Omayra Orta IMPRESSION: 1. Blister of right lower leg, initial encounter ATTESTATIONS: This note is prepared by Omayra Orta, acting as a scribe for Rogers Solorzano NP. I electronically signed this note at 4:04 PM on 04/16/2018. I, Rogers Solorzano NP, have personally performed the services described in the documentation, reviewed the documentation, as recorded by the scribe in my presence, and it accurately and completely records my words and actions. Rogers Solorzano NP 04/16/18 1604 Cosigned by Ari Bosch MD at 04/16/2018 4:39 PM DRAIN CLEANER PLUMBER N CLEANER PLUMBER N CLEANER PLUMBER * Alexandria Sampson RN - 04/16/2018 2:33 PM CST Blister to right trujillo N CLEANER PLUMBER documented in this encounter Plan of Treatment Not on file documented as of this encounter Visit Diagnoses Diagnosis Blister of right lower leg, initial encounter- Primary documented in this encounter Care Teams Pt Escort Relationship Specialty Start Date End Date No, Physician PCP - General 11/01/16 documented as of this encounter
--- OUTSIDE RECORDS SUMMARY | 2024-04-02 11:56 | XMS_ITS | Encounter Summary ---
Author Organization [facility] Healthcare Address [address] [place] [address] Care Team Providers Care Account Services Representative Name Role Phone Kaylie Baez MD Primary Care Provider [phone] Encounter Details Date Type Department Care Team (Late st Contact Info) Description 02/28/2013 12:05 PM ON CALL - 02/28/2013 11:59 PM ON CALL Hospital Encounter [facility] Suicidal ideation Social History Tobacco Use Types Packs/Day Years Used Date Smoking Tobacco: Never Assessed Alcohol Use Standard Drinks/Week Comments No 0 (1 standard drink = 0.6 oz pur e alcohol) Comments Unknown Sex and Gender Information Value Date Recorded Sex Assigned at Not on file Legal Sex Female 8:40 PM ON CALL Gender Identity Female 12/02/2022 6:55 PM CDT Sexual Orientation Straight 12/02/2022 6: 55 PM CDT documented as of this encounter Plan of Treatment Not on file documented as of this encounter Visit Diagnoses Diagnosis Suicidal ideation documented in this encounter Care Teams Account Services Representative Relationship Specialty Start Date End Date Kaylie Baez MD PCP - General 06/09/11 10/05/16 documented as of this encounter
--- OUTSIDE RECORDS SUMMARY | 2024-04-02 11:56 | XMS_ITS | Encounter Summary ---
Author Organization [facility] Healthcare Address [address] [place] [address] Care Team Providers Care Human Resources Manager Manufacturing Name Role Phone Kaylie Baez MD Primary Care Provider [phone] Encounter Details Date Type Department Care Team (Late st Contact Info) Description 02/28/2013 7:46 PM MATHEMATICS ACADEMIC CHAIR - 02/28/2013 11:59 PM MATHEMATICS ACADEMIC CHAIR Hospital Encounter [facility]INCON[facility] Suicidal ideation Social History Tobacco Use Types Packs/Day Years Used Date Smoking Tobacco: Never Assessed Alcohol Use Standard Drinks/Week Comments No 0 (1 standard drink = 0.6 oz pur e alcohol) Comments Unknown Sex and Gender Information Value Date Recorded Sex Assigned at Not on file Legal Sex Female 8:40 PM MATHEMATICS ACADEMIC CHAIR Gender Identity Female 12/02/2022 6:55 PM CDT Sexual Orientation Straight 12/02/2022 6: 55 PM CDT documented as of this encounter Plan of Treatment Not on file documented as of this encounter Visit Diagnoses Diagnosis Suicidal ideation documented in this encounter Care Teams Human Resources Manager Manufacturing Relationship Specialty Start Date End Date Kaylie Baez MD PCP - General 06/09/11 10/05/16 documented as of this encounter
--- OUTSIDE RECORDS SUMMARY | 2024-04-02 11:56 | XMS_ITS | Encounter Summary ---
Author Organization [facility] Healthcare Address [address] [place] [address] Care Team Providers Care Learning And Development Officer Name Role Phone No, Physician Primary Care Provider [phone] Reason for Visit * Reason Comments Fever Generalized Body Aches Encounter Details Date Type Department Care Team (Late st Contact Info) Description 08/05/2018 2:15 PM CDT - 08/05/2018 7:02 PM CDT Emergency [facility] Emergency Department [address] [place] [address] Jaret Alvarado, [address] [address] Fever, unspecified fever cause (Primary Dx); Viral syndrome Discharge Disposition: Discharge to home or self care Social History Tobacco Use Types Packs/Day Years Used Date Smoking Tobacco: Never Smokeless Tobacco: Never Alcohol Use Standard Drinks/Week Comments No 0 (1 standard drink = 0.6 oz pur e alcohol) Comments No Sex and Gender Information Value Date Recorded Sex Assigned at Not on file 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 Gender Identity Female 12/02/2022 6:55 PM CDT Sexual Orientation Straight 12/02/2022 6: 55 PM CDT documented as of this encounter Last Filed Vital Signs Vital Sign Reading Time Taken Comments Blood Pressure 109/61 08/05/2018 5:08 PM CDT Pulse 90 08/05/2018 5:08 PM CDT Temperature 37.2 ??C (99 ??F) 08/05/2018 5:08 PM CDT Respiratory Rate 15 08/05/2018 5:08 PM CDT Oxygen Saturation 100% 08/05/2018 5:08 PM CDT Inhaled Oxygen Concentration - - Weight 63.5 kg (140 lb) 08/05/2018 1:47 PM CDT Height 162.6 cm (5' 4 ) 08/05/2018 1:47 PM CDT Body Mass Index 24.03 08/05/2018 1:47 PM CDT documented in this encounter Discharge Instructions * Discharge Instructions* Alfreda Uribe NP - 08/05/2018 6:55 PM CDT 1. Fever, unspecified fever cause 2. Viral syndrome * Attachments The following attachments cannot be sent through Care Everywhere. * Viral Syndrome (Adult) (Chinese) documented in this encounter Medications at Time of Discharge ibuprofen (ADVIL,MOTRIN) 600 mg tabletIndications :Anti-inflammator y,Fever,Pain Take 1 tablet (600 mg total) by mouth every 6 (six) hours as needed for pain 20 tablet 08/05/2018 12/30/2018 documented as of this encounter Ordered Prescriptions Prescription Sig Dispense Quantity Refills Last Filled Start Date End Date ibuprofen (ADVIL,MOTRIN) 600 mg tabletIndications: Anti-inflammatory, Fever,Pain Take 1 tablet (600 mg total) by mouth every 6 (six) hours as needed for pain 20 tablet 08/05/2018 12/30/2018 documented in this encounter Discharge Disposition Disposition Code Departure Means Destination Discharge to home or self care documented in this encounter Progress Notes * Sophia Buenrostro MD - 08/05/2018 7:02 PM CDT Not my patient documented in this encounter ED Notes * Rogers Solorzano NP - 08/05/2018 3:31 PM CDT HPI Chief Complaint Patient presents with ??? Fever ??? Generalized Body Aches 3:28 PM 08/05/2018 The patient is a 23 y.o. F with no pertinent PMHx presenting to the ED c/o generalized body aches onset yesterday. The patient also reports of a mild cough, sore throat and sinus congestion. She denies dysuria, urinary frequency or abdominal pain. She denies CP, SOB. She states she took tylenol forher symptoms yesterday which gave her some relief but has not taken it consistently. There are no other symptoms or modifying factors reported at this time. Patient History Patient Active Problem List Diagnosis Date Noted ??? Viral syndrome 08/05/2018 ??? Fever 08/05/2018 History reviewed. No pertinent past medical history. Past Surgical History: Procedure Laterality Date ??? EAR SURGERY Family History Problem Relation Age of Onset ??? Other Father Alive and well; ??? Asthma Mother Asthma; ??? Allergies Maternal Grandmother Allergies; Social History Tobacco Use ??? Smoking status: Never Smoker ??? Smokeless tobacco: Never Used Substance Use Topics ??? Alcohol use: No ??? Drug use: Yes Types: Marijuana Social History Social History Narrative ??? Not on file Review of Systems Review of Systems All systems reviewed and are neg or non contributory for this patients presentation today other than as stated in the HPI . Physical Exam ED Triage Vitals Temp Pulse Resp BP SpO2 08/05/18 1347 08/05/18 1347 08/05/18 1347 08/05/18 1347 08/05/18 1347 38.5 ??C (101.3 ??F) 93 16 114/69 100 % Temp src Heart Rate Source Patient Position BP Location FiO2 (%) 08/05/18 1708 -- -- -- -- Oral Physical Exam Constitutional: She is oriented to person, place, and time. She appears well- developed and well-nourished. HENT: Head: Normocephalic and atraumatic. Eyes: Pupils are equal, round, and reactive to light. EOM are normal. Bilateral conjunctiva bilaterally injected. Neck: Normal range of motion. Neck supple. Cardiovascular: Normal rate and regular rhythm. Pulmonary/Chest: Effort normal and breath sounds normal. She has no wheezes. She has no rales. Abdominal: Soft. There is no tenderness. Musculoskeletal: Normal range of motion. Neurological: She is alert and oriented to person, place, and time. Skin: Skin is warm and dry. Nursing note and vitals reviewed. Labs Reviewed URINALYSIS AND REFLEX TO MICROSCOPIC AND CULTURE - Abnormal Result Value Color, ur Yellow Clarity, ur Clear Specific gravity, ur 1.028 (*) pH, urine 5.0 Protein, ur ql Negative Glucose, ur ql Negative Ketones, ur 2+ (*) Bilirubin, ur Negative Blood, ur Negative Urobilinogen, ur <2.0 Nitrite, ur Negative Leukocyte esterase, ur Negative Narrative: Urine pH is affected by diet, medications, systemic acid-base disturbances, and renal tubular function. pH may affect urinary stone formation. For example, urine pH below 6.0 may help reduce the tendency for calcium phosphate stones and pH greater than 6.0 may reduce the tendency for uric acid stone formation. Source: [facility].Last revised 04-23-2017 CBC WITH AUTO DIFFERENTIAL - Abnormal WBC 2.5 (*) Hgb 13.9 Hct 44.1 Plt 222 MPV 9.9 RBC 5.32 (*) MCV 82.9 MCH 26.1 (*) MCHC 31.5 (*) RDW CV 13.8 RDW SD 41.5 Narrative: COMPREHENSIVE METABOLIC PANEL - Abnormal Sodium 135 Potassium, pl 3.6 Chloride 98 CO2 20 (*) Anion Gap 17 (*) BUN 8 Creatinine 0.70 Glucose 97 Calcium 9.2 Bilirubin, total 0.2 Protein, pl 8.1 Albumin 4.4 Alk phos 56 ALT 11 AST 24 Narrative: DIFFERENTIAL AUTO - Abnormal Neutrophil absolute 1.1 (*) Immature granulocyte absolute 0.0 Lymphocytes absolute 0.8 Monocyte absolute 0.6 Eosinophils absolute 0.0 Basophils, abs 0.0 Neutrophils 43.3 Immature granulocytes 0.4 Lymphocytes 33.1 Monocytes 22.8 Eosinophils 0.0 Basophils 0.4 Narrative: POCT RAPID STREP A - Normal Rapid Strep A, POC Negative POCT HCG, URINE - Normal HCG, ur, POC Negative Lot Number [id number] QC Backgroud Clear Acceptable QC Control Line Acceptable INFLUENZA A/B AND RSV PCR Influenza A RNA Not Detected Influenza B RNA Not Detected RSV RNA Not Detected Narrative: This test is performed using the Cepheid Xpert Flu/RSV Assay. This is a multiplex, real-time reverse transcriptase PCR assay that detects influenza A, influenza B, and respiratory syncytial virus RNA. This assay has been cleared by the [place] Food and Drug Administration, and its performance characteristics have been verified by the [facility]. This test is performed using the Dermira Xpert Flu/RSV Assay. This is a multiplex, real-time reverse transcriptase PCR assay that detects influenza A, influenza B, and respiratory syncytial virus RNA. This assay has been cleared by the [place] Food and Drug Administration, and its performance characteristics have been verified by the [facility]. BLOOD CULTURE Report Value: Preliminary Report: No growth to date. Narrative: Draw Blood cultures before administration of Antibiotics 1. Blood cultures are incubated for 5 days on a continuously monitored blood culture system. The first report of a negative culture is issued within 24 hours of receipt of the specimen in the laboratory. 2. Positive culture results are reported as soon as they are detected. 3. The most important factor for detection of microbes in the setting of bloodstream infection is the volume of blood submitted for culture. Failure to collect an optimal blood volume can result in false negative blood cultures. For pediatric patients, the recommended blood volume to collect is 1 mL of blood per year of patient age (up to 20 mL) per blood culture set. For adult patients, 20 mL of blood, divided equally between aerobic and anaerobicblood culture bottles, is recommended for each blood culture set. 4. For blood cultures with Gram-positive cocci, a rapid molecular test for organism identification may be performed using the Visual Threatigene Gram-Positive Blood Culture Assay. This assay detects microbial DNA in positive blood culture broth via hybridization of target DNA to capture oligonucleotides on a microarray. This assay has been cleared by the [place] Food and Drug Administration and its performance characteristics have been verified by the [facility]. 5. For questions about this culture, contact the Microbiology Laboratory at [phone]. Interpretive data was last revised on 2018. BLOOD CULTURE Report Value: Preliminary Report: No growth to date. Narrative: From a different site than #1. Draw Blood cultures before administration of Antibiotics 1. Blood cultures are incubated for 5 days on a continuously monitored blood culture system. The first report of a negative culture is issued within 24 hours of receipt of the specimen in the laboratory. 2. Positive culture results are reported as soon as they are detected. 3. The most important factor for detection of microbes in the setting of bloodstream infection is the volume of blood submitted for culture. Failure to collect an optimal blood volume can result in false negative blood cultures. For pediatric patients, the recommended blood volume to collect is 1 mL of blood per year of patient age (up to 20 mL) per blood culture set. For adult patients, 20 mL of blood, divided equally between aerobic and anaerobicblood culture bottles, is recommended for each blood culture set. 4. For blood cultures with Gram-positive cocci, a rapid molecular test for organism identification may be performed using the Visual Threatigene Gram-Positive Blood Culture Assay. This assay detects microbial DNA in positive blood culture broth via hybridization of target DNA to capture oligonucleotides on a microarray. This assay has been cleared by the [place] Food and Drug Administration and its performance characteristics have been verified by the [facility]. 5. For questions about this culture, contact the Microbiology Laboratory at [phone]. Interpretive data was last revised on 2018. EGFR GFR 123 Narrative: XR Chest Pa Lateral 2 Vw Final Result No acute cardiopulmonary finding. Electronically signed by: Mihir Arias M.D. BP 109/61 Pulse 90 Temp 37.2 ??C (99 ??F) (Oral) Resp 15 Ht 162.6 cm (5' 4 ) Wt 63.5 kg (140 lb) LMP 06/30/2018 (Approximate) SpO2 100% BMI 24.03 kg/m?? [facility] ED Course as of Aug 10 1214 Time: 08/05 1750 Comment: Care transferred to [facility] DIRECTOR OF EPIDEMIOLOGY By: Rogers Solorzano NP Time: 08/05 1750 Comment: Patient UA, strep swab, and flu swabs are all unremarkable. Patient states she does feel slightly better. Will order a labs to further rule out cause of fever and body aches. By: Rogers Solorzano NP Time: 08/05 468 Comment: Rechecked patient. Condition is improved. Discussed the results of ED findings, and the plan for discharge. Recommended follow up with PCP or return to ED for new or worsening symptoms. Patient understands and agrees with plan. All other questions have been addressed By: Alfreda Uribe NP Fever, unspecified fever cause Viral syndrome 12:15 PM: This note is prepared by Mag Aragon, acting as a scribe for Rogers Solorzano NP. I electronically signed this note at 12:15 PM on 08/10/2018. I, Rogers Solorzano NP, have personally performed the services described in the documentation , reviewed the documentation, as recorded by the scribe in my presence, and it accurately and completely records my words and actions. Mag Aragon 08/05/18 1539 Rogers Solorzano NP 08/05/18 1753 Rogers Solorzano NP 08/10/18 1215 Cosigned by Jaret Alvarado DO at 10/19/2018 8:32 PM CDT * April Chambers RN - 08/05/2018 1:45 PM CDT Fever, cough, sore throat since yesterday documented in this encounter Plan of Treatment Not on file documented as of this encounter Procedures Procedure Name Priority Date/Time Associated Diagnosis Comments XR CHEST PA LATERAL 2 VIEWS ED 08/05/2018 5:58 PM CDT EGFR STAT 08/05/2018 5:48 PM CDT DIFFERENTIAL AUTO STAT 08/05/2018 5:4 8 PM CDT CBC WITH AUTO DIFFERENTIAL STAT 08/05/2018 5:48 PM CDT BLOOD CULTURE STAT 08/05/2018 5:48 PM CDT BLOOD CULTURE STAT 08/05/2018 5:48 PM CDT COMPREHENSIVE METABOLIC PANEL STAT 08/05/2018 5:48 PM CDT POCT HCG, URINE Routine 08/05/2018 3:58 PM CDT POCT RAPID STREP Routine 08/05/2018 3:53 PM CDT INFLUENZA A/B AND RSV PCR STAT 08/05/2018 3:46 PM CDT URINALYSIS AND REFLEX TO MICROSCOPIC AND CULTURE STAT 08/05/2018 3:46 PM CDT documented in this encounter Results * XR Chest Pa Lateral 2 Vw (08/05/2018 5:58 PM CDT) Anatomical Region Laterality Modality Body, Chest N/A Computed Radiogr aphy 08/05/2018 5:59 PM CDT Impressions 08/05/2018 6:00 PM CDT No acute cardiopulmonary finding. Electronically signed by: Alejandro Gordon 08/05/2018 6:00 PM CDT RESULT: EXAMINATION: PA AND LATERAL CHEST RADIOGRAPHS Date: 08/05/2018 5:50 PM History: Fever, cough, sore throat Comparison: None Findings: Normal heart size. ??No pleural effusion , vascular congestion, focal consolidation, or pneumothorax. ??No acute osseous abnormality. Procedure Note Mihir Arias MD - 08/05/2018 RESULT: EXAMINATION: PA AND LATERAL CHEST RADIOGRAPHS Date: 08/05/2018 5:50 PM History: Fever, cough, sore throat Comparison: None Findings: Normal heart size. No pleural effusion , vascular congestion, focal consolidation, or pneumothorax. No acute osseous abnormality. IMPRESSION: No acute cardiopulmonary finding. Electronically signed by: Mihir Arias M.D. Rogers Solorzano DIRECTOR OF EPIDEMIOLOGY IMG XR PROCEDURES Final R esult * eGFR (08/05/2018 5:48 PM CDT) [facility] eGFR 123 mL/min/1.7 3 m2 [facility] Comment: Interpretive Data Reference Interval Normal ?>/= 90 mL/min/1.73m2 Mildly decreased* ? 60 - 89 mL/min/1.73m2 Mildly to moderately decreased ?45 - 59 mL/min/1.73m2 Moderately to severely decreased ??30 - 44 mL/min/1.73m2 Severely decreased ?15 - 29 mL/min/1.73m2 Kidney Failure ?< 15 ??mL/min/1.73m2 *Relative to young adult level If -Filipino multiply value by 1.16. Estimated glomerular filtration rate is determined by [...] 70. Current interpretive data was last reviewed 2015. Testing performed by: [facility], [address], [place] [address] Blood specimen (specimen) 08/05/2018 5:48 PM CDT 08/05/2018 6:14 PM CDT Arsalan DAWSON - 08/05/2018 6:36 PM CDT Rogers Balderrama Rashad DIRECTOR OF EPIDEMIOLOGY LAB BLOOD ORDERABLES Sri [place]ña Result [facility] [address] Department [place] [address] * (ABNORMAL) Differential, auto (08/05/2018 5:48 PM CDT) Neutrophil abs 1.1(L) 1.7 - 6.5 K/cumm [facility] Comment:Testing performed by : [facility], [facility] [place] [address] Imm gran abs 0.0 0.0 - 0.1 K/cumm [facility] Comment:Testing performed by : [place] [place] [address] Lymphocyte abs 0.8 0.8 - 3.3 K/cumm [facility] Comment:Testing performed by : [address] [place] [address] Monocyte abs 0.6 0.2 - 0.8 K/cumm [facility] Comment:Testing performed by : [address] [address] [place] [address] Eosinophil abs 0.0 0.0 - 0.5 K/cumm [facility] Comment:Testing performed by : [address] [address] [place] [address] Basophil abs 0.0 0.0 - 0.1 K/cumm [facility] Comment:Testing performed by : [address] [place] [place] [address] Neutrophil pct 43.3 % [facility] Comment: Interpretive Data Percent cell count reference ranges are not reported, since discordance with absolute values may lead to misinterpretation of CBC data. Current Interpretive Data was last revised on 2017. Testing performed by: [address] [place] [address] Imm gran pct 0.4 % [facility] Comment: Interpretive Data Percent cell count reference ranges are not reported, since discordance with absolute values may lead to misinterpretation of CBC data. Current Interpretive Data was last revised on 2017. Testing performed by: [facility], [address] [place] [address] Lymphocyte pct 33.1 % [facility] Comment: Interpretive Data Percent cell count reference ranges are not reported, since discordance with absolute values may lead to misinterpretation of CBC data. Current Interpretive Data was last revised on 2017. Testing performed by: [facility], [address] [place], [place] [address] Monocyte pct 22.8 % [facility] Comment: Interpretive Data Percent cell count reference ranges are not reported, since discordance with absolute values may lead to misinterpretation of CBC data. Current Interpretive Data was last revised on 2017. Testing performed by: [facility], [address] [place] [address] Eosinophil pct 0.0 % [facility] Comment: Interpretive Data Percent cell count reference ranges are not reported, since discordance with absolute values may lead to misinterpretation of CBC data. Current Interpretive Data was last revised on 2017. Testing performed by: [facility], [address] [place], [place] [address] Basophil pct 0.4 % [facility] Comment: Interpretive Data Percent cell count reference ranges are not reported, since discordance with absolute values may lead to misinterpretation of CBC data. Current Interpretive Data was last revised on 2017. Testing performed by: [facility] [place] [address] Blood specimen (specimen) 08/05/2018 5:48 PM CDT 08/05/2018 6:14 PM CDT Narrative [facility] - 08/05/2018 6:21 PM CDT Rogers Solorzano NP LAB BLOOD ORDERABLES Sri [place]ña Result [facility] [address] Department [place] [address] * Blood culture Blood Peripheral (08/05/2018 5:48 PM CDT) Report Final Report: No growth [facility] Comment:Testing performed by : [facility], [address] [facility], [place]., [address] Blood specimen (specimen) (Peripheral) 08/05/2018 5:48 PM CDT 08/05/2018 9:51 PM CDT Arsalan DAWSON CH - 08/11/2018 7:01 AM CDT From a different site than #1. Draw Blood cultures before administration of Antibiotics 1. Blood cultures are incubated for 5 days on a continuously monitored blood culture system. The first report of a negative culture is issued within 24 hours of receipt of the specimen in the laboratory. 2. Positive culture results are reported as soon as they are detected. 3. The most important factor for detection of microbes in the setting of bloodstream infection is the volume of blood submitted for culture. Failure to collect an optimal blood volume can result in false negative blood cultures. For pediatric patients, the recommended blood volume to collect is 1 mL of blood per year of patient age (up to 20 mL) per blood culture set. For adult patients, 20 mL of blood, divided equally between aerobic and anaerobic blood culture bottles, is recommended for each blood culture set. 4. For blood cultures with Gram-positive cocci, a rapid molecular test for organism identification may be performed using the Visual Threatigene Gram-Positive Blood Culture Assay. This assay detects microbial DNA in positive blood culture broth via hybridization of target DNA to capture oligonucleotides on a microarray. This assay has been cleared by the [place] Food and Drug Administration and its performance characteristics have been verified by the [facility]. 5. For questions about this culture, contact the Microbiology Laboratory at [phone]. Interpretive data was last revised on 2018. Rogers Solorzano NP LAB MICROBIOLOGY - GENERA L ORDERABLES Final Result [facility] [address] Department [place] [address] * Blood culture Blood Peripheral (08/05/2018 5:48 PM CDT) Report Final Report: No growth [facility] Comment:Testing performed by : [facility], [address] [facility], [place]., [address] Blood specimen (specimen) (Peripheral) 08/05/2018 5:48 PM CDT 08/05/2018 9:51 PM CDT Arsalan DAWSON CH - 08/11/2018 7:01 AM CDT Draw Blood cultures before administration of Antibiotics 1. Blood cultures are incubated for 5 days on a continuously monitored blood culture system. The first report of a negative culture is issued within 24 hours of receipt of the specimen in the laboratory. 2. Positive culture results are reported as soon as they are detected. 3. The most important factor for detection of microbes in the setting of bloodstream infection is the volume of blood submitted for culture. Failure to collect an optimal blood volume can result in false negative blood cultures. For pediatric patients, the recommended blood volume to collect is 1 mL of blood per year of patient age (up to 20 mL) per blood culture set. For adult patients, 20 mL of blood, divided equally between aerobic and anaerobic blood culture bottles, is recommended for each blood culture set. 4. For blood cultures with Gram-positive cocci, a rapid molecular test for organism identification may be performed using the Visual Threatigene Gram-Positive Blood Culture Assay. This assay detects microbial DNA in positive blood culture broth via hybridization of target DNA to capture oligonucleotides on a microarray. This assay has been cleared by the [place] Food and Drug Administration and its performance characteristics have been verified by the [facility]. 5. For questions about this culture, contact the Microbiology Laboratory at [phone]. Interpretive data was last revised on 2018. Rogers Solorzano NP LAB MICROBIOLOGY - GENERA L ORDERABLES Final Result [facility] [address] Department [place] [address] * (ABNORMAL) Comprehensive metabolic panel (08/05/2018 5:48 PM CDT) Sodium 135 135 - 145 mmol/L [facility] Comment:Testing performed by : [facility], [address], [place] [address] Potassium, pl 3.6 3.3 - 4.9 mmol/L [facility] Comment:Testing performed by : [facility], [facility] [place] [address] Chloride 98 97 - 110 mmol/L [facility] Comment:Testing performed by : [facility], [facility] [place] [address] CO2 20(L) 22 - 32 mmol/L [facility] Comment:Testing performed by : [facility] [place] [address] Anion gap 17(H) 2 - 15 mmol/L [facility] Comment:Testing performed by : [facility] [place] [place] [address] BUN 8 8 - 25 mg/dL [facility] Comment:Testing performed by : [facility] [place] [address] [address] Creatinine 0.70 0.60 - 1.10 mg/dL [facility] Comment:Testing performed by : [facility] [place] [place] [address] Glucose 97 70 - 199 mg/dL [facility] Comment: Interpretive Data Fasting glucose >/= 126 [...] Current interpretive data was last revised 2017. Testing performed by: [facility], [facility] [place] [address] Calcium 9.2 8.5 - 10.3 mg/dL [facility] Comment:Testing performed by : [facility] [place] [address] [place] [address] Bilirubin, total 0.2 0.1 - 1.2 mg/dL CERNER CH Comment:Testing performed by : [facility] [place] [address] Protein, pl 8.1 6.5 - 8.5 g/dL CERNER CH Comment:Testing performed by : [place] [address] [place] [address] Albumin 4.4 3.5 - 5.0 g/dL CERNER CH Comment:Testing performed by : [facility] [address], [place] [address] Alk phos 56 40 - 130 Units/L CERNER CH Comment:Testing performed by : [facility] [facility] [address], [place] [address] ALT 11 7 - 45 Units/L CERNER CH Comment:Testing performed by : [facility] [facility] [address], [place] [address] AST 24 10 - 45 Units/L CERNER CH Comment:Testing performed by : [facility] [facility] [address], [place] [address] Blood specimen (specimen) 08/05/2018 5:48 PM CDT 08/05/2018 6:14 PM CDT Narrative YUDELKANER - 08/05/2018 6:36 PM CDT Rogers Solorzano DIRECTOR OF EPIDEMIOLOGY LAB BLOOD ORDERABLES [place] l Result [facility] [address] Department [place] [address] * (ABNORMAL) CBC with auto differential (08/05/2018 5:48 PM CDT) [facility] Signature WBC 2.5(L) 3.8 - 9.9 K/cumm CERNER CH Comment:Testing performed by : [facility], [place] [address] Hgb 13.9 11.9 - 15.5 g/dL CERNER CH Comment:Testing performed by : [facility] [facility] [address], [place] [address] Hct 44.1 35.6 - 45.5 % CERNER CH Comment:Testing performed by : [facility] [facility] [address], [place] [address] Plt 222 150 - 400 K/cumm CERNER CH Comment:Testing performed by : [facility] [facility] [address], [place] [address] MPV 9.9 9.1 - 12.3 fL CERNER CH Comment:Testing performed by : [facility] [facility] [address], [place] [address] RBC 5.32(H) 3.90 - 5.20 M/cumm CERNER CH Comment:Testing performed by : [facility], [address] [place], [place] [address] MCV 82.9 81.3 - 96.4 fL EUNICE Comment:Testing performed by : [facility], [address] [place], [place] [address] MCH 26.1(L) 27.1 - 33.3 pg EUNICE Comment:Testing performed by : [facility], [facility] [address] [place], [place] [address] MCHC 31.5(L) 32.3 - 35.7 g/dL EUNICE Comment:Testing performed by : [facility], [facility] [address] [place], [place] [address] RDW CV 13.8 11.1 - 14.9 % EUNICE Comment:Testing performed by : [facility], [facility] [address] [place], [place] [address] RDW SD 41.5 35.7 - 48.1 fL EUNICE Comment:Testing performed by : [facility], [facility] [place] [address] Blood specimen (specimen) 08/05/2018 5:48 PM CDT 08/05/2018 6:14 PM CDT Narrative EUNICE - 08/05/2018 6:21 PM CDT Rogers Solorzano DIRECTOR OF EPIDEMIOLOGY LAB BLOOD ORDERABLES [place] Result [facility] [address] Department [place] [address] * POCT hCG, urine (08/05/2018 3:58 PM CDT) [facility] HCG, ur, POC Negative Lot Number [id number] QC Backgroud Clear Acceptable QC Control Line Acceptable Urine 08/05/2018 3:58 PM CDT Rogers Solorzano DIRECTOR OF EPIDEMIOLOGY POINT OF CARE TEST ORDERA BLES Final Result * POCT rapid strep A (08/05/2018 3:53 PM CDT) [facility] Rapid Strep A, POC Negative Swab 08/05/2018 3:53 PM CDT Rogers Solorzano DIRECTOR OF EPIDEMIOLOGY POINT OF CARE TEST ORDERA BLES Final Result * (ABNORMAL) Urinalysis reflex to microscopic and culture Urine (08/05/2018 3:46 PM CDT) Color, ur Yellow Yellow CERNER CH Comment:Testing performed by : [facility] [facility] [address], [place] [address] Clarity, ur Clear Clear CERNER CH Comment:Testing performed by : [facility], [place] [address] Specific gravity, ur 1.028(H) 1.010 - 1.025 CERNER CH Comment:Testing performed by : [facility] [facility] [address], [place] [address] pH, urine 5.0 CERNER CH Comment:Testing performed by : [facility] [facility] [address], [place] [address] Protein, ur ql Negative Negative CERNER CH Comment:Testing performed by : [facility], [place] [address] Glucose, ur ql Negative Negative CERNER CH Comment:Testing performed by : [facility] [address], [place] [address] Ketones, ur 2+(A) Negative CERNER CH Comment:Testing performed by : [facility] [facility] [address], [place] [address] Bilirubin, ur Negative Negative CERNER CH Comment:Testing performed by : [facility] [facility] [address], [place] [address] Blood, ur Negative Negative CERNER CH Comment:Testing performed by : [facility] [facility] [address], [place] [address] Urobilinogen, ur <2.0 <2.0 mg/dL CERNER CH Comment:Testing performed by : [facility] [facility] [address], [place] [address] Nitrite, ur Negative Negative CERNER CH Comment:Testing performed by : [facility] [facility] [address], [place] [address] Leukocyte esterase, ur Negative Negative CERNER CH Comment:Testing performed by : [facility] [facility] [address], [place] [address] Urine 08/05/2018 3:46 PM CDT 08/05/2018 3:56 PM CDT Narrative EUNICE - 08/05/2018 4:07 PM CDT ?? Urine pH is affected by diet, medications, systemic acid-base disturbances, and renal tubular function. ??pH may affect urinary stone formation. ??For example, urine pH below 6.0 may help reduce the tendency for calcium phosphate stones and pH greater than 6.0 may reduce the tendency for uric acid stone formation. Source: [facility]. Last revised 04-23-2017 Rogers Solorzano NP LAB MICROBIOLOGY - GENERA L ORDERABLES Final Result [facility] [address] Department [place] [address] * Influenza A/B and RSV PCR Nasopharyngeal (08/05/2018 3:46 PM CDT) Influenza A RNA Not Detected Not Detected EUNICE Comment:Testing performed by : [facility], [place] [address] Influenza B RNA Not Detected Not Detected EUNICE VICTORIA Comment:Testing performed by : [facility], [place] [address] RSV RNA Not Detected Not Detected EUNICE Comment:Testing performed by : [facility], [place] [address] Nasopharyngeal 08/05/2018 3: 46 PM CDT 08/05/2018 3:55 PM CDT Narrative EUNICE - 08/05/2018 5:41 PM CDT This test is performed using the Dermira Xpert Flu/RSV Assay. This is a multiplex, real-time reverse transcriptase PCR assay that detects influenza A, influenza B, and respiratory syncytial virus RNA. This assay has been cleared by the Food and Drug Administration, and its performance characteristics have been verified by the [facility]. ??This test is performed using the Dermira Xpert Flu/RSV Assay. This is a multiplex, real-time reverse transcriptase PCR assay that detects influenza A, influenza B, and respiratory syncytial virus RNA. This assay has been cleared by the [place] Food and Drug Administration, and its performance characteristics have been verified by the [facility]. Leroylorenzo Conchis Solorzano NP LAB MICROBIOLOGY - GENERA L ORDERABLES Final Result [facility] [place] [address] Department [place] [address] documented in this encounter Visit Diagnoses Diagnosis Fever, unspecified fever cause- Primary Viral syndrome Unspecified viral infection, in conditions classified elsewhere and of unspecified site Viral syndrome Unspecified viral infection, in conditions classified elsewhere and of unspecified site Fever Fever, unspecified documented in this encounter Administered Medications Inactive Administered Medications - up to 3 most recent administrations Medication Order MAR Action Action Date Dose Rate Site ibuprofen (ADVIL,MOTRIN) tablet 800 mg 800 mg, oral, Once, On Mare 08/05/18 at 1537, For 1 dose Given 08/05/2018 3:49 PM CDT 800 mg documented in this encounter Discontinued Medications Medication Sig Discontinue Reason Start Date End Da te ibuprofen (ADVIL,MOTRIN) 600 mg tablet Take 1 tablet (600 mg total) by mouth every 6 (six) hours as needed for pain. Reorder 04/16/2018 08/05/2018 documented as of this encounter Active and Recently Administered Medications Times are shown in CDT. Scheduled Medication Order 08/03/2018 08/04/2018 08/05/2018 ibuprofen (ADVIL,MOTRIN) tablet 800 mg (COMPLETED) 800 mg, oral, Once, On Mare 08/05/18 at 1537, For 1 dose 1549 (Given - Provid er: Mag Man RN) documented in this encounter Care Teams Learning And Development Officer Relationship Specialty Start Date End Date No, Physician PCP - General 11/01/16 documented as of this encounter
--- OUTSIDE RECORDS SUMMARY | 2024-04-02 11:56 | XMS_ITS | Encounter Summary ---
Author Organization [facility] Healthcare Address [address] [place] [address] Care Team Providers Care Hcc Coders Name Role Phone Kaylie Baez MD Primary Care Provider [phone] Encounter Details Date Type Department Care Team (Late st Contact Info) Description 06/18/2012 10:05 PM MERCHANDISE DELIVERER - 06/19/2012 12:05 AM MERCHANDISE DELIVERER Hospital Encounter [facility] Lesia Cantu MD [address] [place] [address] Generalized pain; Viral infection in conditions classified elsewhere and of unspecified site Social History Tobacco Use Types Packs/Day Years Used Date Smoking Tobacco: Never Assessed Alcohol Use Standard Drinks/Week Comments No 0 (1 standard drink = 0.6 oz pur e alcohol) Comments Unknown Sex and Gender Information Value Date Recorded Sex Assigned at Not on file Legal Sex Female 8:40 PM MERCHANDISE DELIVERER Gender Identity Female 12/02/2022 6:55 PM CDT Sexual Orientation Straight 12/02/2022 6: 55 PM CDT documented as of this encounter Plan of Treatment Not on file documented as of this encounter Procedures Procedure Name Priority Date/Time Associated Diagnosis Comments DISCHARGE LABORATORY CUMULATIVE REPORT 06/19/2012 NASOPHARYNGEAL MUCUS INFLUENZA A, B AG Routine 06/18/2012 10:50 PM MERCHANDISE DELIVERER documented in this encounter Results * DISCHARGE LABORATORY CUMULATIVE REPORT (06/19/2012) Narrative 06/19/2012 Ordered by an unspecified provider. us Historical Provider LAB BLOOD ORDERABLES Sri l Result * Nasopharyngeal mucus Influenza A, B ag (06/18/2012 10:50 PM MERCHANDISE DELIVERER) Influenza A Ag Negative Negative HISTO RICAL RESULTS Comment:This test has an est imated 70% sensitivity and 90% specificity. Influ B ag Negative Negative HISTORICA L RESULTS Comment:This test has an est imated 70% sensitivity and 90% specificity. Nasopharynx swab 06/18/2012 10:50 PM MERCHANDISE DELIVERER Lesia Cantu MD LAB BLOOD ORDERABLES Final Resul t HISTORICAL RESULTS documented in this encounter Visit Diagnoses Diagnosis Generalized pain Viral infection in conditions classified elsewhere and of unspecified site documented in this encounter Care Teams Hcc Coders Relationship Specialty Start Date End Date Kaylie Baez MD PCP - General 06/09/11 10/05/16 documented as of this encounter
--- OUTSIDE RECORDS SUMMARY | 2024-04-02 11:56 | XMS_ITS | Encounter Summary ---
Author Organization [facility] Facility Care Team Providers Care Cell Reliner Name Role Phone Kaylie Baez MD Primary Care Provider [phone] Encounter Details Date Type Department Care Team (Late st Contact Info) Description 12/08/2011 7:44 AM CDT - 12/08/2011 11:59 PM CDT Hospital Encounter [facility] Kaden Sultana MD [address] [place] [address] Social History Tobacco Use Types Packs/Day Years Used Date Smoking Tobacco: Never Assessed Comments Unknown Sex and Gender Information Value Date Recorded Sex Assigned at Not on file Legal Sex Female 8:40 PM [employer] Gender Identity Female 12/02/2022 6:55 PM CDT Sexual Orientation Straight 12/02/2022 6: 55 PM CDT documented as of this encounter Plan of Treatment Not on file documented as of this encounter Visit Diagnoses Not on filedocumented in this encounter Care Teams Cell Reliner Relationship Specialty Start Date End Date Kaylie Baez MD PCP - General 06/09/11 10/05/16 documented as of this encounter
--- OUTSIDE RECORDS SUMMARY | 2024-04-02 11:56 | XMS_ITS | Encounter Summary ---
Author Organization [facility] Healthcare Address [address] [place] [address] Care Team Providers Care Head Refrigerating Engineer Name Role Phone No, Physician Primary Care Provider Reason for Visit * Reason Comments Back Pain Abdominal Cramping Encounter Details Date Type Department Care Team (Late st Contact Info) Description 02/03/2020 7:55 PM CDT - 02/03/2020 10:22 PM CDT Emergency [facility] Emergency Department [address] [place] [address] Vero Dougherty MD 1 [facility] EMERGENCY DEPARTMENT [place] [id number] Constipation, unspecified constipation type (Primary Dx) Discharge Disposition: Discharge to home or self care Social History Tobacco Use Types Packs/Day Years Used Date Smoking Tobacco: Never Smokeless Tobacco: Never Alcohol Use Standard Drinks/Week Comments No 0 (1 standard drink = 0.6 oz pur e alcohol) Comments Unknown Sex and Gender Information Value Date Recorded Sex Assigned at Not on file 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 Gender Identity Female 12/02/2022 6:55 PM CDT Sexual Orientation Straight 12/02/2022 6: 55 PM CDT documented as of this encounter Last Filed Vital Signs Vital Sign Reading Time Taken Comments Blood Pressure 94/63 02/03/2020 10:12 PM CDT Pulse 82 02/03/2020 10:12 PM CDT Temperature 36.7 ??C (98.1 ??F) 02/03/2020 10:12 PM C DT Respiratory Rate 20 02/03/2020 10:12 PM CDT Oxygen Saturation 96% 02/03/2020 10:12 PM CDT Inhaled Oxygen Concentration - - Weight 61.2 kg (135 lb) 02/03/2020 7:50 PM CDT Height 165.1 cm (5' 5 ) 02/03/2020 7:50 PM CDT Body Mass Index 22.47 02/03/2020 7:50 PM CDT documented in this encounter Discharge Diagnoses Diagnosis Constipation, unspecified - CONSTIPATION, UNSPECIFIED documented in this encounter Discharge Instructions * Discharge Instructions* Vero Dougherty MD - 02/03/2020 10:11 PM CDT Meds as prescribed. Take MiraLax as needed. You can take this medication daily or only medical constipated. Read the handout about increasing your fiber in your diet. This will help decrease constipation as well. Return with worsening symptoms or with concerns. Establish with a primary care physician. See referral. * Attachments The following attachments cannot be sent through Care Everywhere. * Constipation (Adult) (Namibian) * High Fiber Diet (AfterCare(R) Instructions(ER/ED)) (Namibian) documented in this encounter Medications at Time of Discharge ibuprofen (ADVIL,MOTRIN) 800 mg tablet Take 1 tablet (800 mg total) by mouth 3 (three) times a day 21 tablet 12/30/2018 03/23/2020 polyethylene glycol (MIRALAX) 17 gram/dose powder Take 17 g by mouth daily 510 g 02/03/2020 05/25/2023 documented as of this encounter Ordered Prescriptions Prescription Sig Dispense Quantity Refills Last Filled Start Date End Date polyethylene glycol (MIRALAX) 17 gram/dose powder Take 17 g by mouth daily 510 g 02/03/2020 05/25/2023 documented in this encounter Discharge Disposition Disposition Code Departure Means Destination Discharge to home or self care documented in this encounter ED Notes * Vero Dougherty MD - 02/03/2020 8:44 PM CDT HPI Chief Complaint Patient presents with ??? Back Pain ??? Abdominal Cramping 2129 Patient is a 24 year old female with no prior medical history presents with intermittent sharp andcramping abdominal pain that started 2-3 weeks ago. Patient reports noticing an increase in abdominal pain for the past 2-3 days. Patient reports abdominal pain began in the lower epigastric area and pain would jump to different areas of her abdomin. Patient currently reports a 5/10 lower left sharp back pain. Patient reports she might be constipated and has not tried any medication for relief. Her last BM was a couple days a go. Patient denies changes in urination, vaginal pain, fever, nausea, vomiting, chest pain, shortness of breath and chills. Patient History: Patient Active Problem List Diagnosis [...] Review of Systems Review of Systems Constitutional: Negative. HENT: Negative. Eyes: Negative. Respiratory: Negative for cough and shortness of breath. Cardiovascular: Negative. Gastrointestinal: Positive for abdominal pain and constipation. Negative for abdominal distention, nausea and vomiting. Endocrine: Negative. Genitourinary: Negative. Musculoskeletal: Positive for back pain. Lower L back pain Skin: Negative. Allergic/Immunologic: Negative. Neurological: Negative. Hematological: Negative. Psychiatric/Behavioral: Negative. Breast: Negative. Physical Exam ED Triage Vitals [02/03/20 1950] Temp Pulse Resp BP SpO2 36.2 ??C (97.2 ??F) 99 18 103/68 99 % Temp src Heart Rate Source Patient Position BP Location FiO2 (%) Temporal -- -- -- -- Physical Exam Vitals signs and nursing note reviewed. Constitutional: General: She is not in acute distress. Appearance: Normal appearance. She is normal weight. She is not ill-appearing, toxic-appearing or diaphoretic. HENT: Head: Normocephalic. Right Ear: External ear normal. Left Ear: External ear normal. Mouth/Throat: Mouth: Mucous membranes are moist. Pharynx: No oropharyngeal exudate. Eyes: General: Right eye: No discharge. Left eye: No discharge. Extraocular Movements: Extraocular movements intact. Conjunctiva/sclera: Conjunctivae normal. Pupils: Pupils are equal, round, and reactive to light. Neck: Musculoskeletal: Normal range of motion. No neck rigidity. Cardiovascular: Rate and Rhythm: Normal rate and regular rhythm. Pulses: Normal pulses. Heart sounds: No murmur. No friction rub. No gallop. Pulmonary: Effort: Pulmonary effort is normal. No respiratory distress. Breath sounds: Normal breath sounds. No stridor. No wheezing, rhonchi or rales. Chest: Chest wall: No tenderness. Abdominal: General: Abdomen is flat. Bowel sounds are normal. There is no distension. Palpations: There is no mass. Tenderness: There is no abdominal tenderness. There is no right CVA tenderness, left CVA tenderness, guarding or rebound. Musculoskeletal: Normal range of motion. Lymphadenopathy: Cervical: No cervical adenopathy. Skin: General: Skin is warm. Capillary Refill: Capillary refill takes less than 2 seconds. Neurological: General: No focal deficit present. Mental Status: She is alert and oriented to person, place, and time. Mental status is at baseline. [facility] ED Course as of Feb 03 103 Time: 02/03 2136 Value: XR Kub (Abd 1 View) Comment: (Reviewed) By: Vero Dougherty MD Final diagnoses: Constipation, unspecified constipation type Vero Dougherty MD 02/04/20102 * June Moore RN - 02/03/2020 7:48 PM CDT Pt presents with complaints of back pain and cramping intermittently x 2 weeks. Pt states that her current episode started 2-3 days ago. Pt reports constipation, saying her last normal BM was a few days. Pt states that she does not normally have problems with constipation. Pt denies any pain with urination, but states that she has noticed increased frequency. Pt unsure if she is , saying that is a concern . documented in this encounter Miscellaneous Notes * ED Triage Provider Note - Mike Gold NP - 02/03/2020 7:55 PM CDT 24-year-old female with no significant medical history, presents to ED with complaints of bilaterallower back pain, intermittent and varying location of abdominal cramping, and urinary frequency x2 weeks. Patient also reports constipation x3 days. documented in this encounter Plan of Treatment Not on file documented as of this encounter Procedures Procedure Name Priority Date/Time Associated Diagnosis Comments XR KUB ED 02/03/2020 8:28 PM CDT EGFR STAT 02/03/2020 8:10 PM CDT DIFFERENTIAL AUTO STAT 02/03/2020 8:1 0 PM CDT URINALYSIS AND REFLEX TO MICROSCOPIC AND CULTURE STAT 02/03/2020 8:10 PM CDT CBC WITH AUTO DIFFERENTIAL STAT 02/03/2020 8:10 PM CDT HCG, URINE, QUALITATIVE STAT 02/03/2020 8:10 PM CDT URINALYSIS, MICROSCOPIC ONLY STAT 02/03/2020 8:10 PM CDT COMPREHENSIVE METABOLIC PANEL STAT 02/03/2020 8:10 PM CDT documented in this encounter Results * XR Kub (Abd 1 View) (02/03/2020 8:28 PM CDT) Anatomical Region Laterality Modality Body, Abdomen N/A Computed Radiogr aphy 02/03/2020 8:26 PM CDT Impressions 02/03/2020 8:51 PM CDT ?? No acute finding. ??Large amount of fecal matter in the colon and rectum. THIS IS AN ELECTRONICALLY VERIFIED FINAL REPORT 02/03/2020 8:48 PM - Electronically signed by Red Tran KT: KT D: ??02/03/2020 8:48 PM T: ??02/03/2020 8:48 PM Report ID: [id number] Reading Location: ??[id number] Narrative 02/03/2020 8:51 PM CDT [facility] ?Imaging Result Name: BRENDA SHI ? Ordering Phys: MIKE GOLD Age: 24 ?Date of : 1995 ? Accession Number: [id number] Date of Service: 02/03/2020 ??Gender: F EXAM DESCRIPTION: ?? XR KUB REASON FOR STUDY: ?? abdominal cramping x 2 ??Weeks getting worseDuration: 2 weeks TECHNIQUE: ?? Supine radiographic view of the abdomen acquired. COMPARISON: ?? None ??BOWEL GAS PATTERN: ??Scattered non-dilated small bowel loops. Nonobstructive pattern. ??Large amount of fecal matter in the colon and rectum. SOFT TISSUES: ??No significant abnormal calcifications. BONES: ??No significant abnormality. OTHER: ??No other significant finding. Procedure Note Red Tran MD - 02/03/2020 [facility] Imaging Result Name: BRENDA SHI Ordering Phys: MIKE KIRBYUEGER Age: 24 Date of : 1995 Accession Number: [id number] Date of Service: 02/03/2020 Gender: F EXAM DESCRIPTION: XR KUB REASON FOR STUDY: abdominal cramping x 2 Weeks getting worseDuration:2 weeks TECHNIQUE: Supine radiographic view of the abdomen acquired. COMPARISON: None BOWEL GAS PATTERN: Scattered non-dilated small bowel loops. Nonobstructive pattern. Large amount of fecal matter in the colon andrectum. SOFT TISSUES: No significant abnormal calcifications. BONES: No significant abnormality. OTHER: No other significant finding. IMPRESSION: No acute finding. Large amount of fecal matter in the colon and rectum. THIS IS AN ELECTRONICALLY VERIFIED FINAL REPORT 02/03/2020 8:48 PM - Electronically signed by Red Tran KT: KT Report ID: [id number] Reading Location: [place] [address] Mike Gold P D DRIVER IMG XR PROCEDURES Final Resu lt * eGFR (02/03/2020 8:10 PM CDT) eGFR 128 mL/min/1.7 3 m2 [facility] ([facility]) Comment: Interpretive Data Reference Interval Normal ?>/= 90 mL/min/1.73m2 Mildly decreased* ? 60 - 89 mL/min/1.73m2 Mildly to moderately decreased ?45 - 59 mL/min/1.73m2 Moderately to severely decreased ??30 - 44 mL/min/1.73m2 Severely decreased ?15 - 29 mL/min/1.73m2 Kidney Failure ?< 15 ??mL/min/1.73m2 *Relative to young adult level If -[place] multiply value by 1.16. Estimated glomerular filtration [...] Current interpretive data was last reviewed 2015. Blood specimen (specimen) 02/03/2020 8:10 PM CDT 02/03/2020 8:14 PM CDT us Mike Gold P D DRIVER LAB BLOOD ORDERABLES Final R esult Performing Organization Address City/[facility] Co de Phone Number [facility] ([facility]) [address] [facility] [place] [address] * (ABNORMAL) Urinalysis, microscopic only (02/03/2020 8:10 PM CDT) WBC, ur 0-5 0 - 5 /HPF [facility] ([facility]) RBC, ur 0-2 0 - 2 /HPF [facility] ([facility]) Epithelial cells, squamous, ur 1-5 0 - 5 /HPF [facility] ([place]) Mucous, ur Present(A) [facility] ([place]) Culture Reflex Comment Reflex conditions for urine culture (WBC >10) not met. [facility] ([facility]) Urine 02/03/2020 8:10 PM CDT 02/03/2020 8:14 PM CDT us Mike Gold P D DRIVER LAB URINE ORDERABLES Final R esult Performing Organization Address City/[facility] Co de Phone Number [facility] ([facility] [address] [place] [address] * (ABNORMAL) Differential, auto (02/03/2020 8:10 PM CDT) Neutrophil abs 3.5 1.7 - 6.5 K/cumm [facility] ([facility]) Imm gran abs 0.0 0.0 - 0.1 K/cumm [facility] ([facility]) Lymphocyte abs 3.3 0.8 - 3.3 K/cumm [facility] ([facility]) Monocyte abs 0.9(H) 0.2 - 0.8 K/cumm [facility] Eosinophil abs 0.1 0.0 - 0.5 K/cumm [facility] ([facility]) Basophil abs 0.0 0.0 - 0.1 K/cumm [facility] ([facility]) Neutrophil pct 44.8 % [facility] ([facility]) Comment: Interpretive Data Percent cell count reference ranges are not reported, since discordance with absolute values may lead to misinterpretation of CBC data. Current Interpretive Data was last revised on 2017. Imm gran pct 0.4 % [facility] ([facility]) Comment: Interpretive Data Percent cell count reference ranges are not reported, since discordance with absolute values may lead to misinterpretation of CBC data. Current Interpretive Data was last revised on 2017. Lymphocyte pct 42.4 % [facility] ([facility]) Comment: Interpretive Data Percent cell count reference ranges are not reported, since discordance with absolute values may lead to misinterpretation of CBC data. Current Interpretive Data was last revised on 2017. Monocyte pct 11.0 % [facility] ([facility]) Comment: Interpretive Data Percent cell count reference ranges are not reported, since discordance with absolute values may lead to misinterpretation of CBC data. Current Interpretive Data was last revised on 2017. Eosinophil pct 0.9 % [facility] ([facility]) Comment: Interpretive Data Percent cell count reference ranges are not reported, since discordance with absolute values may lead to misinterpretation of CBC data. Current Interpretive Data was last revised on 2017. Basophil pct 0.5 % [facility] ([facility]) Comment: Interpretive Data Percent cell count reference ranges are not reported, since discordance with absolute values may lead to misinterpretation of CBC data. Current Interpretive Data was last revised on 2017. Blood specimen (specimen) 02/03/2020 8:10 PM CDT 02/03/2020 8:14 PM CDT us Mike Gold P D DRIVER LAB BLOOD ORDERABLES Final R esult [facility] ([place]) 1 [facility] [place] [address] * hCG, urine, qualitative (02/03/2020 8:10 PM CDT) HCG, ur Negative Negative [facility] ([facility]) Urine 02/03/2020 8:10 PM CDT 02/03/2020 8:14 PM CDT us Mike Gold P D DRIVER LAB URINE ORDERABLES Final R esult [facility] ([facility]) 1 [facility] [place] [address] * (ABNORMAL) Urinalysis reflex to microscopic and culture Urine (02/03/2020 8:10 PM CDT) Color, ur Yellow Yellow [facility] ([facility]) Clarity, ur Clear Clear [facility] ([facility]) Specific gravity, ur 1.023 1.010 - 1.025 [facility] ([facility]) pH, urine 6.0 [facility] ([facility]) Protein, ur ql Negative [...] UA will be performed. [facility] ([facility]) Urine 02/03/2020 8:10 PM CDT 02/03/2020 8:14 PM CDT Narrative [facility] ([facility]) - 02/03/2020 8:22 PM CDT ?? Urine pH is affected by diet, medications, systemic acid-base disturbances, and renal tubular function. ??pH may affect urinary stone formation. ??For example, urine pH below 6.0 may help reduce the tendency for calcium phosphate stones and pH greater than 6.0 may reduce the tendency for uric acid stone formation. Source: [facility]. Last revised 04-23-2017 us Mike Gold NP LAB MICROBIOLOGY - GENERAL O RDERABLES Final Result [facility] ([facility]) 1 [facility] Department [place] [address] * Comprehensive metabolic panel (02/03/2020 8:10 PM CDT) Sodium 135 135 - 145 mmol/L [facility] ([facility]) Potassium, pl 3.7 3.3 - 4.9 mmol/L [facility] ([facility]) Chloride 102 97 - 110 mmol/L [facility] ([facility]) CO2 25 22 - 32 mmol/L [facility] ([facility]) Anion gap 8 2 - 15 mmol/L [facility] ([facility]) BUN 10 8 - 25 mg/dL [facility] ([facility]) Creatinine 0.61 0.60 - 1.10 mg/dL [facility] ([facility]) Glucose 89 70 - 199 mg/dL [facility] ([facility]) Comment: Interpretive Data Fasting glucose [...] 10.3 mg/dL [facility] ([facility]) Bilirubin, total <0.2 0.1 - 1.2 mg/dL [facility] ([facility]) Protein, pl 6.7 6.5 - 8.5 g/dL [facility] ([facility]) Albumin 4.1 3.5 - 5.0 g/dL [facility] ([facility]) Alk phos 61 40 - 130 Units/L [facility] ([facility]) ALT 8 7 - 45 Units/L [facility] ([facility]) AST 17 10 - 45 Units/L [facility] ([facility]) Blood specimen (specimen) 02/03/2020 8:10 PM CDT 02/03/2020 8:14 PM CDT us Mike Gold P D DRIVER LAB BLOOD ORDERABLES Final R esult [facility] ([facility]) [address] [facility] [place] [address] * (ABNORMAL) CBC with auto differential (02/03/2020 8:10 PM CDT) WBC 7.7 3.8 - 9.9 K/cumm [facility] ([facility]) Hgb 12.1 11.9 - 15.5 g/dL [facility] ([facility]) Hct 38.2 35.6 - 45.5 % [facility] ([facility]) Plt 271 150 - 400 K/cumm [facility] ([facility]) MPV 9.7 9.1 - 12.3 fL [facility] ([facility]) RBC 4.49 3.90 - 5.20 M/cumm [facility] ([facility]) MCV 85.1 81.3 - 96.4 fL [facility] ([facility]) MCH 26.9(L) 27.1 - 33.3 pg [facility] ([facility]) MCHC 31.7(L) 32.3 - 35.7 g/dL [facility] ([facility]) RDW CV 13.8 11.1 - 14.9 % [facility] ([facility]) RDW SD 43.2 35.7 - 48.1 fL [facility] ([facility]) NRBC abs 0.00 0.00 - 0.01 K/cumm [facility] ([facility]) Blood specimen (specimen) 02/03/2020 8:10 PM CDT 02/03/2020 8:14 PM CDT us Mike Gold P D DRIVER LAB BLOOD ORDERABLES Final R esult [facility] ([facility]) 1 [facility] [place] [address] documented in this encounter Visit Diagnoses Diagnosis Constipation, unspecified constipation type- Primary documented in this encounter Administered Medications Inactive Administered Medications - up to 3 most recent administrations Medication Order MAR Action Action Date Dose Rate Site bisacodyL (DULCOLAX) suppository 10 mg 10 mg, rectal, Once, On Thu02/03/20 at 2159, For 1 dose, Indications: constipationIndications:constipat ion Given 02/03/2020 10:14 PM CDT 10 mg magnesium citrate oral solution 296 mL 296 mL, oral, Once, On Thu02/03/20 at 2159, For 1 dose Given 02/03/2020 10:14 PM CDT 296 mL documented in this encounter Active and Recently Administered Medications Times are shown in CDT. Scheduled Medication Order 02/01/2020 02/02/2020 02/03/2020 bisacodyL (DULCOLAX) suppository 10 mg (COMPLETED) 10 mg, rectal, Once, On Thu02/03/20 at 2159, For 1 dose, Indications: constipation 2214 (Given - Provid er: Deyanira Louis RN) magnesium citrate oral solution 296 mL (COMPLETED) 296 mL, oral, Once, On Thu02/03/20 at 2159, For 1 dose 2214 (Given - Provid er: Deyanira Louis RN) documented in this encounter Care Teams Head Refrigerating Engineer Relationship Specialty Start Date End Date No, Physician PCP - General 11/01/16 documented as of this encounter
--- OUTSIDE RECORDS SUMMARY | 2024-04-02 11:56 | XMS_ITS | Encounter Summary ---
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 Office Visit [facility] [address] [place] [address] Lorraine Saenz Encounter for cosmetic procedure (Primary Dx) Social History Tobacco Use Types Packs/Day Years Used Date Smoking Tobacco: Never Smokeless Tobacco: Never Alcohol Use Standard Drinks/Week Comments No 0 (1 standard drink = 0.6 oz pur e alcohol) Comments No Sex and Gender Information Value Date Recorded Sex Assigned at Not on file Legal Sex 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 MARKETING SALES REPRESENTATIVE documented in this encounter Plan of Treatment Not on file documented as of this encounter Visit Diagnoses Diagnosis Encounter for cosmetic procedure- Primary documented in this encounter Care Teams Snailer Relationship Specialty Start Date End Date No, Physician PCP - General 11/01/16 documented as of this encounter
--- OUTSIDE RECORDS SUMMARY | 2024-04-02 11:56 | XMS_ITS | Encounter Summary ---
Author Organization [facility] Healthcare Address [address] [place] [address] Care Team Providers Care Woodwind Instrument Repairer Name Role Phone No, Physician Primary Care Provider [phone] Reason for Referral * Diagnostic Imaging (Routine) - Closed Specialty Diagnoses / Procedures Referred By Riaz harvey Referred To Contact Diagnoses Encounter for supervision of normal first , first trimester Procedures US Ob Under 14 Weeks Ted Nolan NP [address] [facility] [address] JERE COLEMAN [address] [place] [address] Phone: tel: fax: [address] [phone] Referral ID Status Reason Start Date Expiration Date Visits Re quested Visits Authorized [id number] Closed 03/06/2020 04/05/[address] Reason for Visit * Diagnostic Imaging (Routine) - Closed Specialty Diagnoses / Procedures Referred By Riaz harvey Referred To Contact Diagnoses Encounter for supervision of normal first , first trimester Procedures US Ob Under 14 Weeks Ted Nolan NP [address] [facility] [address] JERE [address] [place] [address] Phone: tel: fax: [address] [phone] Referral ID Status Reason Start Date Expiration Date Visits Re quested Visits Authorized [id number] Closed 03/06/2020 04/05/2021 1 1 Encounter Details Date Type Department Care Team (Latest Contact Info) Description 03/13/2020 11:[address]CH[address]ICIAN - 03/13/2020 11:[address]CHNICIAN Hospital Encounter [facility] [address] [place] [address] Dale Hogan MD [address] [facility] [address] JERE Rg [address] [address] Ted Nolan NP [address] [facility] [address] JERE Rg [address] [address] Encounter for supervision of normal first , first trimester Discharge Disposition: Discharge to home or self care Social History Tobacco Use Types Packs/Day Years Used Date Smoking Tobacco: Never Smokeless Tobacco: Never Alcohol Use Standard Drinks/Week Comments No 0 (1 standard drink = 0.6 oz pur e alcohol) Comments Unknown Sex and Gender Information Value Date Recorded Sex Assigned at Not on file Legal Sex Female 8:[address] Gender Identity Female 12/02/2022 6:55 PM [...] by mouth daily 510 g 02/03/2020 05/25/2023 28 mg iron- 800 mcg tablet Take 1 tablet by mouth daily 03/06/2020 10/12/2020 documented as of this encounter Discharge Disposition Disposition Code Departure Means Destination Discharge to home or self care documented in this encounter Plan of Treatment Not on file documented as of this encounter Procedures Procedure Name Priority Date/Time Associated Diagnosis Comments US OB UNDER 14 WEEKS Schedule Routine, Read Routine (OP Routine) 03/13/2020 11:[address]CH[address]ICIAN Encounter for supervision of normal first , first trimester documented in this encounter Results * US Ob Under 14 Weeks (03/13/2020 11:[address]CHNICIAN) Anatomical Region Laterality Modality Abdomen N/A Ultrasound 03/13/2020 12:[address]CH[address]ICIAN Impressions 03/13/2020 12:[address]CH[address]ICIAN Single live intrauterine gestation with estimated gestational age 11 weeks 5 days and heart rate 168 bpm. Electronically signed by: Prince Brown M.D. Narrative 03/13/2020 12:[address]CHNICIAN EXAMINATION: US OB UNDER 14 WEEKS ORDERING HEALTHCARE PROVIDER: TED NOLAN HISTORY: SUPERVISION OF NORMAL . COMPARISON: None. TECHNIQUE: Multiple sonographic images of the pelvis FINDINGS: Estimated Gestational Age (crown rump length): 11 weeks 5 days EDC (sonographic dating): 09/27/2020 Heart Rate: 168 bpm There is no subchorionic hemorrhage The maternal ovaries are visualized, normal in size. Cervical length measures 4.1 cm. Procedure Note Prince Brown MD - 03/13/2020 EXAMINATION: US OB UNDER 14 WEEKS ORDERING HEALTHCARE PROVIDER: TED NOLAN HISTORY: SUPERVISION OF NORMAL . COMPARISON: None. TECHNIQUE: Multiple sonographic images of the pelvis FINDINGS: Estimated Gestational Age (crown rump length): 11 weeks 5 days EDC (sonographic dating): 09/27/2020 Heart Rate: 168 bpm There is no subchorionic hemorrhage The maternal ovaries are visualized, normal in size. Cervical length measures 4.1 cm. IMPRESSION: Single live intrauterine gestation with estimated gestational age 11 weeks 5 days and heart rate 168 bpm. Electronically signed by: Prince Brown M.D. us Ted Nolan CONSUMER LENDING MANAGER IMG OB US PROCEDURES Final R esult documented in this encounter Visit Diagnoses Diagnosis Encounter for supervision of normal first , first trimester documented in this encounter Care Teams Woodwind Instrument Repairer Relationship Specialty Start Date End Date No, Physician PCP - General 11/01/16 documented as of this encounter
--- OUTSIDE RECORDS SUMMARY | 2024-04-02 11:56 | XMS_ITS | Encounter Summary ---
Author Organization [facility] Healthcare Address [address] [place] [address] Care Team Providers Care Pipeline Operator Name Role Phone Kaylie Baez MD Primary Care Provider [phone] Encounter Details Date Type Department Care Team (Late st Contact Info) Description 02/28/2013 12:42 PM GUITAR REPAIR TECHNICIAN - 02/28/2013 7:30 PM GUITAR REPAIR TECHNICIAN Hospital Encounter [facility] Ramiro Gifford MD 1 [facility] [place] [address] [place] [address] Major depressive disorder, single episode Social History Tobacco Use Types Packs/Day Years Used Date Smoking Tobacco: Never Assessed Alcohol Use Standard Drinks/Week Comments No 0 (1 standard drink = 0.6 oz pur e alcohol) Comments Unknown Sex and Gender Information Value Date Recorded Sex Assigned at Not on file Legal Sex Female 8:40 PM GUITAR REPAIR TECHNICIAN Gender Identity Female 12/02/2022 6:55 PM CDT Sexual Orientation Straight 12/02/2022 6: 55 PM CDT documented as of this encounter Plan of Treatment Not on file documented as of this encounter Procedures Procedure Name Priority Date/Time Associated Diagnosis Comments SERUM THYROID-STIMULATING HORMONE (TSH) Routine 02/28/2013 2:57 PM GUITAR REPAIR TECHNICIAN URINE MICROSCOPY Routine 02/28/2013 1:12 PM GUITAR REPAIR TECHNICIAN URINE DRUG SCREEN Routine 02/28/2013 1:1 2 PM GUITAR REPAIR TECHNICIAN URINALYSIS Routine 02/28/2013 1:12 PM GUITAR REPAIR TECHNICIAN SERUM ETHANOL Routine 02/28/2013 12:52 PM GUITAR REPAIR TECHNICIAN SERUM COMPREHENSIVE METABOLIC PANEL Routine 02/28/2013 12:52 PM GUITAR REPAIR TECHNICIAN SERUM CHORIONIC GONADOTROPIN (HCG) IDENTIFICATION Routine 02/28/2013 12:52 PM GUITAR REPAIR TECHNICIAN BLOOD WBC CELL MORPHOLOGIC EXAM, AUTO Routine 02/28/2013 12:52 PM GUITAR REPAIR TECHNICIAN BLOOD CELL COUNT (CBC) Routine 3 12:52 PM GUITAR REPAIR TECHNICIAN DISCHARGE LABORATORY CUMULATIVE REPORT Routine 02/28/2013 12:00 AM GUITAR REPAIR TECHNICIAN documented in this encounter Results * Serum thyroid-stimulating hormone (TSH) (02/28/2013 2:57 PM GUITAR REPAIR TECHNICIAN) TSH 0.66 0.35 - 4.80 mcIUnits/ml HISTORICAL RESULTS Serum 02/28/2013 2:57 PM GUITAR REPAIR TECHNICIAN Ramiro Anaya MD LAB BLOOD ORDERABLES Final Res ult HISTORICAL RESULTS * (ABNORMAL) Urinalysis (02/28/2013 1:12 PM GUITAR REPAIR TECHNICIAN) Color, ur YELLOW YELLOW HISTORICAL RESULTS Clarity, ur CLOUDY(A) CLEAR HISTORIC AL RESULTS Specific gravity, ur 1.021 1.000 - 1.030 gu HISTORICAL RESULTS Leukocyte esterase, ur Negative NEGATIVE HISTORICAL RESULTS Nitrites, ur Negative NEGATIVE HISTORI MELANI RESULTS Protein, ur Negative NEGATIVE HISTORIC AL RESULTS Glucose, ur Negative NEGATIVE HISTORIC AL RESULTS Ketones, ur Negative NEGATIVE HISTORIC AL RESULTS Urobilinogen, quant, ur 0.2 0.2 - 1.0 mg/dl HISTORICAL RESULTS Bilirubin, ur Negative NEGATIVE HISTOR ICAL RESULTS U Blood Negative NEGATIVE HISTORICAL RESULTS Urine 02/28/2013 1:12 PM GUITAR REPAIR TECHNICIAN Ramiro Anaya MD LAB BLOOD ORDERABLES Final Res ult Performing Organization Address [facility]/ZIP Co de Phone Number HISTORICAL RESULTS * Urine drug screen (02/28/2013 1:12 PM GUITAR REPAIR TECHNICIAN) pH, ur 6.0 6.0 HISTORICAL RESULTS Benzodiazepines , ur Negative NEGATIVE HISTORICAL RESULTS Comment:BENZODIAZEPINES CUT OFF VALUE 200 ng/ml Cocaine, ur Negative NEGATIVE HISTORIC AL RESULTS Comment:COCAINE CUT OFF VALU E 300 ng/ml Amphetamine + methamphetamine , ur Negative NEGATIVE HISTORICAL RESULTS Comment:AMPHETAMINES CUT OFF VALUE 1000 ng/ml Cannabinoids, ur Positive NEGATIVE HISTORICAL RESULTS Comment:THC/MARIJUANA CUT OF F VALUE 50 ng/ml Opiates, qual, ur Negative NEGATIVE HISTORICAL RESULTS Comment:OPIATES CUT OFF VALU E 2000 ng/ml Barbiturates, ur Negative NEGATIVE HISTORICAL RESULTS Comment: BARBITURATES CUT OFF VALUE 200 ng/ml SCREENING TEST ONLY. ALL POSITIVE URINES WILL BE CONFIRMED UPON DOCTOR REQUEST ONLY. UNCONFIRMED SCREENING RESULTS MUST NOT BE USED FOR NON-MEDICAL PURPOSES. Phencyclidine, qual, ur Negative NEGATIVE HISTORICAL RESULTS Comment:PCP CUT OFF VALUE 25 ng/ml Urine 02/28/2013 1:12 PM GUITAR REPAIR TECHNICIAN Ramiro Anaya MD LAB BLOOD ORDERABLES Final Res ult Performing Organization Address [facility] de Phone Number HISTORICAL RESULTS * (ABNORMAL) Urine microscopy (02/28/2013 1:12 PM GUITAR REPAIR TECHNICIAN) WBC, ur 0 - 2 0 - 2 /hpf HISTORICA L RESULTS RBC, ur 2 - 5(A) 0 - 5 /hpf HISTORICA L RESULTS Epithelial cells, ur 5 - 10(A) 0 - 2 /hpf HISTORICAL RESULTS Bacteria, ur 1+(A) NEGATIVE /hpf HISTORICAL RESULTS Hyaline casts NOTSEEN 0 - 4 /lpf HISTO RICAL RESULTS Crystals, ur Negative NEGATIVE HISTORI MELANI RESULTS Yeast, ur Negative NEGATIVE HISTORICAL RESULTS Pathological casts, ur Negative NEGATIVE HISTORICAL RESULTS Urine 02/28/2013 1:12 PM GUITAR REPAIR TECHNICIAN Ramiro Anaya MD LAB BLOOD ORDERABLES Final Res ult Performing Organization Address [facility] Co de Phone Number HISTORICAL RESULTS * Serum chorionic gonadotropin (HCG) identification (02/28/2013 12:52 PM GUITAR REPAIR TECHNICIAN) HCG, qual Negative NEGATIVE HISTORICAL RESULTS Serum 02/28/2013 12:5 2 PM GUITAR REPAIR TECHNICIAN Ramiro Anaya MD LAB BLOOD ORDERABLES Final Res ult Performing Organization Address [facility] de Phone Number HISTORICAL RESULTS * (ABNORMAL) Serum ethanol (02/28/2013 12:52 PM GUITAR REPAIR TECHNICIAN) Ethanol, sr <10(A) mg/dl HISTORIC AL RESULTS Serum 02/28/2013 12:5 2 PM GUITAR REPAIR TECHNICIAN Ramiro Anaya MD LAB BLOOD ORDERABLES Final Res ult Performing Organization Address [facility] de Phone Number HISTORICAL RESULTS * (ABNORMAL) Blood cell count (CBC) (02/28/2013 12:52 PM GUITAR REPAIR TECHNICIAN) WBC 5.4(L) 6.2 - 17.0 K/cumm HISTORICAL RESULTS RBC 4.74 4.20 - 5.40 M/cumm HISTORICAL RESULTS Hgb 12.4 12.0 - 16.0 g/dl HISTORICAL RESULTS Hct 38.9 37.0 - 47.0 % HISTORICAL RESULTS MCV 82.1 77.0 - 97.0 fl HISTORICAL RESULTS MCH 26.2 23.0 - 34.0 pg HISTORICAL RESULTS MCHC 31.9(L) 32.0 - 36.0 g/dl HISTORICAL RESULTS Rdw 14.6(H) 11.5 - 14.5 % HISTORICAL RESULTS Platelets 261 150 - 451 K/cumm HISTORICAL RESULTS MPV 10.3 7.4 - 10.4 fl HISTORICAL RESULTS Blood specimen (specimen) 02/28/2013 12:52 PM GUITAR REPAIR TECHNICIAN Ramiro Anaya MD LAB BLOOD ORDERABLES Final Res ult Performing Organization Address [facility] de Phone Number HISTORICAL RESULTS * (ABNORMAL) Blood WBC cell morphologic exam, auto (02/28/2013 12:52 PM GUITAR REPAIR TECHNICIAN) Pathologist [facility] Lymphocytes 41.1(H) 25.0 - 33.0 % HISTORICAL RESULTS Monos 10.7 1.0 - 13.0 % HISTORICAL RESULTS Neutrophils 45.9(L) 54.0 - 69.0 % HISTORICAL RESULTS Eosinophils 1.7 0.0 - 10.0 % HISTORICAL RESULTS Basophils 0.4 0.0 - 1.0 % HISTORICAL RESULTS Immature granulocytes 0.2 0.0 - 1.0 % HISTORICAL RESULTS Lymphocytes, abs 2.2 1.2 - 3.4 K/cumm HISTORICAL RESULTS Monocytes, absolute 0.6(L) 1.1 - 1.9 K/cumm HISTORICAL RESULTS Neutrophils, abs 2.5 1.4 - 6.5 K/cumm HISTORICAL RESULTS Eosinophils, abs 0.1 0.0 - 0.7 cells/cum m HISTORICAL RESULTS Basophils, abs 0.0 0.0 - 0.2 K/cumm HISTORICAL RESULTS Immature granulocyte, abs 0.0 0.0 - 0.0 K/cumm HISTORICAL RESULTS Blood specimen (specimen) 02/28/2013 12:52 PM GUITAR REPAIR TECHNICIAN us Ramiro Anaya MD LAB BLOOD ORDERABLES Final Res ult HISTORICAL RESULTS * Serum comprehensive metabolic panel (02/28/2013 12:52 PM GUITAR REPAIR TECHNICIAN) Pathologist [facility] BUN 8.0 6.0 - 23.0 mg/dl HISTORICAL RESULTS Sodium 139 134 - 143 mmol/L HISTORICAL RESULTS Potassium, sr 3.8 3.4 - 5.0 mmol/L HISTORICAL RESULTS Chloride 105 99 - 108 mmol/L HISTORICAL RESULTS CO2 26 23 - 32 mmol/L HISTORICAL RESULTS Glucose 107 70 - 199 mg/dl HISTORICAL RESULTS Comment: Note:The glucose is assumed non fasting Fastin-99 mg/dl Random: 70-199 mg/dl Either a fasting glucose > 126 mg/dL or a random glucose > 200 mg/dL plus symptoms is diagnostic of diabetes when confirmed on another day. Fasting values > 100 mg/dl but < 125 mg/dL are diagnostic of impaired fasting glucose. Creatinine 0.69 0.60 - 1.30 mg/dl HISTORICAL RESULTS BUN/creat ratio 12 10 - 20 HIST ORICAL RESULTS A. gap 12 7 - 14 mmol/L HISTORICAL RESULTS Protein, sr 6.9 6.4 - 8.0 g/dl HISTORICAL RESULTS Alb 3.6 3.3 - 4.5 g/dl HISTORICAL RESULTS Alb/glob ratio 1.1 1.1 - 1.8 HISTO RICAL RESULTS Calcium 8.9 8.6 - 9.8 mg/dl HISTORICAL RESULTS Bilirubin 0.1 0.0 - 1.1 mg/dl HISTORICAL RESULTS Alk phos 84 44 - 125 Units/L HISTORICAL RESULTS AST 13 5 - 40 Units/L HISTORICAL RESULTS Comment:AST - NOTE REFERENCE RANGE CHANGE ALT 16 15 - 70 Units/L HISTORICAL RESULTS Serum 02/28/2013 12:5 2 PM GUITAR REPAIR TECHNICIAN us Ramiro Anaya MD LAB BLOOD ORDERABLES Final Res ult HISTORICAL RESULTS * Discharge Laboratory Cumulative Report (02/28/2013 12:00 AM GUITAR REPAIR TECHNICIAN) 02/28/2013 Narrative HISTORICAL RESULTS - 03/02/2013 12:47 AM GUITAR REPAIR TECHNICIAN Patient No: [id number] ? [facility] Patient Name: BRENDA SHI ? [facility] Healthcare Age: 17 YRS ?: 1995 ?Sex:F ?[address] )[id number] ?? Adm Dt: 02/28/2013 ?[place] ??[id number] Created: 03/02/2013 ??0047 ?? Pt. Type: E ? Discharge Dt: 02/28/2013 ? Pathologists: Lesia Livingston MD Admit Attend Dr: RAMIRO ANAYA MD ? BLOOD CELL COUNTS ?Collection Date: ?02/28/13 ?Collection Time: ?1252 ? Ref Range: ?? Units: [6.20-17.00] /CMM ? WBC X 10^3 ?5.42 L [4.20-5.40] ??/CMM ? RBC X 10^6 ?4.74 [12.0-16.0] ??G/DL ? HGB ? 12.4 [37.0-47.0] ??% ?HCT ? 38.9 [77.0-97.0] ??FL ? MCV ? 82.1 [23.0-34.0] ??PG ? MCH ? 26.2 [32.0-36.0] ??% ?MCHC ?31.9 L [11.5-14.5] ??% ?RDW ? 14.6 H [150-451] ?? /CMM ? PLT X 10^3 ? 261 ?BLOOD CELL DIFFERENTIAL ?Collection Date: ?02/28/13 ?Collection Time: ?1252 ? Ref Range: ?? Units: [54.0-69.0] ??% ?NEUTROPHILS ? 45.9 L [25.0-33.0] ??% ?LYMPHOCYTES ? 41.1 H [1.0-13.0] ??% ?MONOCYTES ? 10.7 [0.0-10.0] ??% ?EOSINOPHILS ?1.7 [0.0-1.0] ?? % ?BASOPHILS ?0.4 ? /CMM ? A LYMPHOCYTE ? 2.2 [0.0-1.0] ?? % ?IMM GRAN % ? 0.2 [0.00-0.02] ??/CMM ? A IMM GRAN ?0.01 [1.1-1.9] ?? /CMM ? A MONOCYTE ? 0.6 L [1.4-6.5] ?? /CMM ? A NEUTROPHIL ? 2.5 [0.0-0.7] ?? /CMM ? A EOSINOPHIL ? 0.1 [0.0-0.2] ?? /CMM ? A BASOPHIL ? 0.0 Footnotes and Symbols: L = Low, H = High ?? CONTINUED ?Page: ?? 1 Patient No: [id number] ? [facility] Patient Name: BRENDA SHI ? [facility] Age: 17 YRS ?: 1995 ?Sex:F ?[address] )[id number] ?? Adm Dt: 02/28/2013 ?[place], [place] ??[address] Created: 03/02/2013 ??0047 ?? Pt. Type: E ? Discharge Dt: 02/28/2013 ? Pathologists: Lesia Livingston MD Admit Attend Dr: RAMIRO ANAYA MD ? GENERAL CHEMISTRY ?Collection Date: ?02/28/13 ?Collection Time: ?1252 ? Ref Range: ?? Units: [134-143] ?? MMOL/L ? SODIUM ? 139 [3.4-5.0] ?? MMOL/L ? POTASSIUM ?3.8 [99.0-108.0] MMOL/L ? CHLORIDE ? 105.0 [23.0-32.0] ??MMOL/L ? TOTAL CO2 ? 25.9 ?? [7-14] ?MMOL/L ? ANION GAP ? 12 ??[70-199] ?? MG/DL ?GLUCOSE ?107 f [6.4-8.0] ?? G/DL ? TOTAL PROTEIN ?6.9 [3.3-4.5] ?? G/DL ? ALBUMIN ?3.6 [1.1-1.8] ?A/G RATIO ?1.1 [8.6-9.8] ?? MG/DL ?CALCIUM ?8.9 [0.0-1.1] ?? MG/DL ?BILI TOTAL ? 0.1 ??[44-125] ?? U/L ?ALK PHOS ?84 ?? [5-40] ?U/L ?AST(SGOT) ? 13 f ??[15-70] ?U/L ?ALT(SGPT) ? 16 f [6.0-23.0] ??MG/DL ?BUN ?8.0 ??[10-20] ? B/C RATIO ? 12 [0.60-1.30] ??MG/DL ?CREATININE ?0.69 Footnotes and Symbols: f = Footnote GLUCOSE (02/21/13 -- Current) Note:The glucose is assumed non fasting Fastin-99 mg/dl Random: 70-199 mg/dl Either a fasting glucose > 126 mg/dL or a random glucose > 200 mg/dL plus symptoms is diagnostic of diabetes when confirmed on another day. Fasting values > 100 mg/dl but < 125 mg/dL are diagnostic of impaired fasting glucose. New reference ranges implemented 02/21/2013. AST(SGOT) (09/22/12 -- Current) AST ??- NOTE REFERENCE RANGE CHANGE ALT(SGPT) (11/02/12 -- Current) ?? CONTINUED ?Page: ?? 2 Patient No: [id number] ? [facility] Patient Name: BRENDA SHI ? [facility] Age: 17 YRS ?: 1995 ?Sex:F ?[address] )[id number] ?? Adm Dt: 02/28/2013 ?[place] ??[id number] Created: 03/02/2013 ??0047 ?? Pt. Type: E ? Discharge Dt: 02/28/2013 ? Pathologists: Lesia Livingston MD Admit Attend Dr: RAMIRO ANAYA MD ?THYROID FUNCTION TESTS ?Collection Date: ?02/28/13 ?Collection Time: ?145 ? Ref Range: ?? Units: [0.35-4.80] ??uIU/ML ? TSH ? 0.66 ?TOXICOLOGY ?Collection Date: ?02/28/13 ? 02/28/13 ?Collection Time: ?1312 ? 1252 ? Ref Range: ?? Units: ? MG/DL ?ALCOHOL ? <10 *f ?02/28/13 1252 <10.O mg/dl = NO ETHANOL DETECTED FOOTNOTE ADDED ON ?? 02/28/13 ?? AT 1449 BY 999 ? URINE DRUG SCREEN [NEGATIVE] ?PCP ? NEGATIVE f [NEGATIVE] ?BENZODIAZEPINES ? NEGATIVE f [NEGATIVE] ?COCAINE ? NEGATIVE f [NEGATIVE] ?AMPHETAMINES ?NEGATIVE f [NEGATIVE] ?THC/MARIJUANA ? POSITIVE f Footnotes and Symbols: * = Abnormal, f = Footnote ALCOHOL (09/07/09 -- Current) NORMAL: ??NO ETHANOL DETECTED FOR MEDICAL PURPOSES ONLY PCP (01/15/07 -- Current) PCP CUT OFF VALUE 25 ng/ml BENZODIAZEPINES (01/15/07 -- Current) BENZODIAZEPINES CUT OFF VALUE 200 ng/ml COCAINE (01/15/07 -- Current) COCAINE CUT OFF VALUE 300 ng/ml AMPHETAMINES (01/15/07 -- Current) AMPHETAMINES CUT OFF VALUE 1000 ng/ml THC/MARIJUANA (01/15/07 -- Current) THC/MARIJUANA CUT OFF VALUE 50 ng/ml ?? CONTINUED ?Page: ?? 3 Patient No: [id number] ? [facility] Patient Name: BRENDA SHI ? [facility] Age: 17 YRS ?: 1995 ?Sex:F ?[address] )[id number] ?? Adm Dt: 02/28/2013 ?[place], [place] ??[address] Created: 03/02/2013 ??0047 ?? Pt. Type: E ? Discharge Dt: 02/28/2013 ? Pathologists: Lesia Livingston MD Admit Dr. Soto Dr: RAMIRO ANAYA MD ?TOXICOLOGY ?Collection Date: ?11/18/13 ? 11/18/13 ?Collection Time: ?1312 ? 1252 ? Ref Range: ?? Units: ? URINE DRUG SCREEN [NEGATIVE] ?OPIATES ? NEGATIVE f [NEGATIVE] ?BARBITURATES ?NEGATIVE f ?? [6.0] ?U PH ? 6.0 ? HORMONES ?Collection Date: ?02/28/13 ?Collection Time: ?1252 ? Ref Range: ?? Units: [NEGATIVE] ?HCG QUALITATIVE ? NEGATIVE Footnotes and Symbols: f = Footnote OPIATES (01/15/07 -- Current) OPIATES CUT OFF VALUE 2000 ng/ml BARBITURATES (01/15/07 -- Current) BARBITURATES CUT OFF VALUE 200 ng/ml SCREENING TEST ONLY. ALL POSITIVE URINES WILL BE CONFIRMED UPON DOCTOR REQUEST ONLY. UNCONFIRMED SCREENING RESULTS MUST NOT BE USED FOR NON-MEDICAL PURPOSES. ?? CONTINUED ?Page: ?? 4 Patient No: [id number] ? [facility] Patient Name: BRENDA SHI ? [facility] Age: 17 YRS ?: 1995 ?Sex:F ?[address] )[id number] ?? Adm Dt: 02/28/2013 ?[place] ??[id number] Created: 03/02/2013 ??0047 ?? Pt. Type: E ? Discharge Dt: 02/28/2013 ? Pathologists: Lesia Livingston MD Admit Attend Dr: RAMIRO ANAYA MD ?URINALYSIS ?Collection Date: ?02/28/13 ?Collection Time: ?1312 ? Ref Range: ?? Units: [YELLOW] ? U COLOR ? YELLOW ??[CLEAR] ? U APPEARANCE ?CLOUDY * [1.000-1.030] ? U SPEC GRAVITY ? 1.021 [NEGATIVE] ?U LEUKO ESTRASE ? NEGATIVE [NEGATIVE] ?U NITRITE ? NEGATIVE [NEGATIVE] ?U PROTEIN ? NEGATIVE [NEGATIVE] ?U GLUCOSE ? NEGATIVE [NEGATIVE] ?U KETONES ? NEGATIVE [0.2- 1.0] ?UROBILINOGEN ? 0.2 [NEGATIVE] ?U BILIRUBIN ? NEGATIVE [NEGATIVE] ?U BLOOD ? NEGATIVE ?? [0-2] ?U WBC ?0-2 ?? [0-5] ?U RBC ?2-5 * ?? [0-2] ?U EPI CELLS ? 5-10 * [NEGATIVE] ?U BACTERIA ?1+ * ?U YEASTS ?NEGATIVE ?? [0-4] ?U HYALINE CASTS ? NOT SEEN [NEGATIVE] ?U CRYSTALS ?NEGATIVE [NEGATIVE] ?U PATH CASTS ?NEGATIVE Footnotes and Symbols: * = Abnormal ?? END OF CHART ? Page: ?? 5 us Historical Provider LAB BLOOD ORDERABLES Sri l Result HISTORICAL RESULTS documented in this encounter Visit Diagnoses Diagnosis Major depressive disorder, single episode Major depressive disorder, single episode, unspecified documented in this encounter Care Teams Pipeline Operator Relationship Specialty Start Date End Date Kaylie Baez MD PCP - General 06/09/11 10/05/16 documented as of this encounter
--- OUTSIDE RECORDS SUMMARY | 2024-04-02 11:56 | XMS_ITS | Encounter Summary ---
Author Organization [facility] Facility Care Team Providers Care Newspaper Photo Editor Name Role Phone No, Physician Primary Care Provider [phone] Encounter Details Date Type Department Care Team (Latest Contact Info) Description 08/05/2018 Travel Social History Tobacco Use Types Packs/Day Years Used Date Smoking Tobacco: Never Smokeless Tobacco: Never Alcohol Use Standard Drinks/Week Comments No 0 (1 standard drink = 0.6 oz pur e alcohol) Comments No Sex and Gender Information Value Date Recorded Sex Assigned at Not on file Legal Sex Female 8:40 PM BUILDINGS AND GROUNDS COORDINATOR Gender Identity Female 12/02/2022 6:55 PM CDT Sexual Orientation Straight 12/02/2022 6: 55 PM CDT documented as of this encounter Plan of Treatment Not on file documented as of this encounter Visit Diagnoses Not on filedocumented in this encounter Care Teams Newspaper Photo Editor Relationship Specialty Start Date End Date No, Physician PCP - General 11/01/16 documented as of this encounter
--- OUTSIDE RECORDS SUMMARY | 2024-04-02 11:56 | XMS_ITS | Encounter Summary ---
Author Organization [facility] Healthcare Address [address] [place] [address] Care Team Providers Care Scrub Tech Name Role Phone Unknown, Notinfile Primary Care Provider Unavail able Encounter Details Date Type Department Care Team (Late st Contact Info) Description 10/06/2016 2:55 PM CDT - 10/06/2016 4:22 PM CDT Emergency [facility] Emergency Department [address] [place] [id number] Demetria Carrion MD [address] [place] [address] Discharge Disposition: Discharge to home or self care Social History Tobacco Use Types Packs/Day Years Used Date Smoking Tobacco: Never Assessed Alcohol Use Standard Drinks/Week Comments No 0 (1 standard drink = 0.6 oz pur e alcohol) Comments Unknown Sex and Gender Information Value Date Recorded Sex Assigned at Not on file Legal Sex Female 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 Gender Identity Female 12/02/2022 6:55 PM [...] AND REFLEX TO MICROSCOPIC AND CULTURE STAT 10/06/2016 3:47 PM CDT DISCHARGE LABORATORY CUMULATIVE REPORT 10/06/2016 12:00 AM CDT documented in this encounter Results * Urinalysis reflex to microscopic and culture (10/06/2016 3:47 PM CDT) Color, ur Straw [facility] Comment:Testing performed by : [facility], [place] [address] Clarity, ur Clear [facility] Comment:Testing performed by : [facility], [address] [place] [address] Specific gravity, ur 1.006 1.001 - 1.033 [facility] Comment:Testing performed by : [facility], [address] [place] [address] pH, ur 6.0 5.0 - 8.0 [facility] Comment:Testing performed by : [facility], [address] [place] [address] Protein, ur ql Negative Negative [facility] Comment:[facility] [place] [address] Glucose, ur ql Negative Negative [facility] Comment:Testing performed by : [facility], [address] [place] [address] Ketones, ur Negative Negative [facility] Comment:Testing performed by : [facility], [address] [place] [address] Bilirubin, ur Negative Negative [facility] Comment:Testing performed by : [facility], [address] [place] [address] Blood, ur Negative Negative [facility] Comment:[facility] [place] [address] Urobilinogen, ur Normal [facility] Comment:Testing performed by : [facility], [address] [place] [address] Nitrites, ur Negative Negative [facility] Comment:Testing performed by : [facility] [address], [place] [address] Leukocyte esterase, ur Negative Negative [facility] Comment:[facility] [place] [address] Urine 10/06/2016 3:47 PM CDT 10/06/2016 3:53 PM CDT Lorraine Sifuentes [employer] ASSEMBLER LAB MICROBIOLOGY - GENERA L ORDERABLES Final Result [facility] [address] [place] [address] * DISCHARGE LABORATORY CUMULATIVE REPORT (10/06/2016 12:00 AM CDT) Narrative 10/06/2016 12:00 AM CDT Ordered by an unspecified provider. us Historical Provider LAB BLOOD ORDERABLES Sri l Result documented in this encounter Visit Diagnoses Not on filedocumented in this encounter Care Teams Scrub Tech Relationship Specialty Start Date End Date Unknown, Notinfile PCP - General 10/06/16 10/27/16 documented as of this encounter
--- OUTSIDE RECORDS SUMMARY | 2024-04-02 11:56 | XMS_ITS | Encounter Summary ---
Author Organization [facility] Healthcare Address [address] [place] [address] Care Team Providers Care Salon Sales Consultant Name Role Phone No, Physician Primary Care Provider [phone] Reason for Visit * Reason Comments Hand Injury Encounter Details Date Type Department Care Team (Late st Contact Info) Description 12/30/2018 12:51 PM CDT - 12/30/2018 2:23 PM CDT Emergency [facility] Emergency Department [address] [place] [phone] Diego Millard MD [address] [place] [id number] Contusion of left hand, initial encounter (Primary Dx); Multiple abrasions Discharge Disposition: Discharge to home or self care Social History Tobacco Use Types Packs/Day Years Used Date Smoking Tobacco: Never Smokeless Tobacco: Never Alcohol Use Standard Drinks/Week Comments No 0 (1 standard drink = 0.6 oz pur e alcohol) Comments No Sex and Gender Information Value Date Recorded Sex Assigned at Not on file 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 Gender Identity Female 12/02/2022 6:55 PM CDT Sexual Orientation Straight 12/02/2022 6: 55 PM CDT documented as of this encounter Last Filed Vital Signs Vital Sign Reading Time Taken Comments Blood Pressure 107/74 12/30/2018 12:49 PM CDT Pulse 78 12/30/2018 12:49 PM CDT Temperature 36.7 ??C (98 ??F) 12/30/2018 12:49 PM CDT Respiratory Rate 18 12/30/2018 12:49 PM CDT Oxygen Saturation 100% 12/30/2018 12:49 PM CDT Inhaled Oxygen Concentration - - Weight 65.8 kg (145 lb) 12/30/2018 12:49 PM CDT Height 165.1 cm (5' 5 ) 12/30/2018 12:49 PM CDT Body Mass Index 24.13 12/30/2018 12:49 PM CDT documented in this encounter Discharge Diagnoses Diagnosis Contusion of left hand - CONTUSION OF LEFT HAND, INITIAL ENCOUNTER Abrasion of left hand - ABRASION OF LEFT HAND, INITIAL ENCOUNTER Striking against or struck by other objects, initial encounter - STRIKING AGAINST OR STRUCK BY OTHER OBJECTS, INITIAL ENCOUNTER Unspecified place or not applicable - UNSPECIFIED PLACE OR NOT APPLICABLE Other external cause status - OTHER EXTERNAL CAUSE STATUS Activity, other specified - ACTIVITY, OTHER SPECIFIED Cannabis use, uncomplicated - CANNABIS USE, UNSPECIFIED, UNCOMPLICATED documented in this encounter Discharge Instructions * Attachments The following attachments cannot be sent through Care Everywhere. * Contusion in Adults (AfterCare(R) Instructions(ER/ED)) ([place] Verdean) documented in this encounter Medications at Time of Discharge ibuprofen (ADVIL,MOTRIN) 800 mg tablet Take 1 tablet (800 mg total) by mouth 3 (three) times a day 21 tablet 12/30/2018 03/23/2020 documented as of this encounter Ordered Prescriptions Prescription Sig Dispense Quantity Refills Last Filled Start Date End Date ibuprofen (ADVIL,MOTRIN) 800 mg tablet Take 1 tablet (800 mg total) by mouth 3 (three) times a day 21 tablet 12/30/2018 03/23/2020 documented in this encounter Discharge Disposition Disposition Code Departure Means Destination Discharge to home or self care documented in this encounter ED Notes * Rogers Solorzano NP - 12/30/2018 1:51 PM CDT HPI Chief Complaint Patient presents with ??? Hand Injury 1:43 PM 12/30/2018 Brenda Shi is a 23 y.o (left-handed) F presenting to the ED for evaluation of L hand pain after punching a wooden door 3 times this morning. She notes multiple abrasions to the hand and excruciating pain to the thumb area of her L hand on the dorsal and palmar aspect. Also reports she cannot flex the L thumb. She denies wrist pain. Denies numbness or tingling to the L hand or further injury. No further complaints. Patient History History reviewed. No pertinent past medical history. [...] No ??? Drug use: Yes Types: Marijuana Review of Systems Review of Systems All systems reviewed and are neg or non contributory for this patients presentation today other than as stated in the HPI . Physical Exam ED Triage Vitals [12/30/18 1249] Temp Pulse Resp BP SpO2 36.7 ??C (98 ??F) 78 18 107/74 100 % Temp src Heart Rate Source Patient Position BP Location FiO2 (%) Oral Monitor Sitting Right arm -- Physical Exam HEAD: Atraumatic EYES: Conjunctiva and sclera are clear bilaterally ENT: No rhinorrhea NECK: Supple RESP: Normal respiratory effort EXT: Tenderness to left thenar eminence, no obvious edema or ecchymosis, no point tenderness to theleft wrist, no snuffbox tenderness, full range of motion to the left wrist, pain with flexion at the 1st MCP joint, right radial pulse palpable SKIN: Multiple abrasions noted to the left dorsal hand NEURO: Alert, moves all extremities equally, follow commands without difficulty Vitals: 12/30/18 1249 BP: 107/74 BP Location: Right arm Patient Position: Sitting Pulse: 78 Resp: 18 Temp: 36.7 ??C (98 ??F) TempSrc: Oral SpO2: 100% Weight: 65.8 kg (145 lb) Height: 165.1 cm (5' 5 ) Labs Reviewed - No data to display XR Hand Left 3 or More Views Final Result FINDINGS/IMPRESSION: There is no sign of any acute osseous or articular abnormality. There are no specific soft tissue abnormalities. Electronically signed by: Xavier Trent M.D. Procedures MDM Clinical Impression: Contusion of left hand, initial encounter Multiple abrasions This note was prepared by Aimee Nielsen, acting as a Scribe for Rogers Solorzano NP I electronically signed this note at 1:51 PM on 12/30/2018. I, Rogers Solorzano NP have personally performed the services described in the documentation, reviewed the documentation, as recorded by the scribe in my presence, and it accurately and completely records my words and actions. Rogers Solorzano NP 12/30/18 1410 Cosigned by Diego Millard MD at 12/30/2018 5:16 PM CDT * Fina Robison RN - 12/30/2018 12:52 PM CDT Left hand pain, states punched a door repeatedly documented in this encounter Plan of Treatment Not on file documented as of this encounter Procedures Procedure Name Priority Date/Time Associated Diagnosis Comments XR HAND LEFT 3 OR MORE VIEWS ED 12/30/2018 1:26 PM CDT documented in this encounter Results * XR Hand Left 3 or More Views (12/30/2018 1:26 PM CDT) Anatomical Region Laterality Modality Upper Extremities, Hand Left Computed Radiography 12/30/2018 1:33 PM CDT Impressions 12/30/2018 1:33 PM CDT FINDINGS/IMPRESSION: There is no sign of any acute osseous or articular abnormality. There are no specific soft tissue abnormalities. Electronically signed by: Xavier Trent M.D. Narrative 12/30/2018 1:33 PM CDT RESULT: HISTORY: Left hand pain EXAMINATION: XR HAND LEFT 3 OR MORE VIEWS ORDER DATE: 12/30/2018 1:10 PM Procedure Note Xavier Trent MD - 12/30/2018 RESULT: HISTORY: Left hand pain EXAMINATION: XR HAND LEFT 3 OR MORE VIEWS ORDER DATE: 12/30/2018 1:10 PM IMPRESSION: FINDINGS/IMPRESSION: There is no sign of any acute osseous or articular abnormality. There are no specific soft tissue abnormalities. Electronically signed by: Xavier Trent M.D. Diego Millard MD IMG XR PROCEDURES Final Result documented in this encounter Visit Diagnoses Diagnosis Contusion of left hand, initial encounter- Primary Multiple abrasions documented in this encounter Administered Medications Inactive Administered Medications - up to 3 most recent administrations Medication Order MAR Action Action Date Dose Rate Site bacitracin zinc 500 unit/gram ointment packet 1 application 1 application (deactivated), topical, Once, On Mare 12/30/18 at 1356, For 1 dose, Apply to affected area: wound Given 12/30/2018 2:15 PM CDT 1 application (deactivated) documented in this encounter Discontinued Medications Medication Sig Discontinue Reason Start Date End Da te ibuprofen (ADVIL,MOTRIN) 600 mg tabletIndications:Anti-i nflammatory,Fever,Pain Take 1 tablet (600 mg total) by mouth every 6 (six) hours as needed for pain Therapy completed 08/05/2018 12/30/2018 documented as of this encounter Active and Recently Administered Medications Times are shown in CDT. Scheduled Medication Order 12/28/2018 12/29/2018 12/30/2018 bacitracin zinc 500 unit/gram ointment packet 1 application (COMPLETED) 1 application (deactivated), topical, Once, On Mare 12/30/18 at 1356, For 1 dose, Apply to affected area: wound 1415 (Given - Provid er: Nava De La Rosa RN) documented in this encounter Orders Nursing Count Last Ordered Date First Orde red Date APPLY DARIAN WRAP 1 12/30/2018 WOUND CARE 1 12/30/2018 documented in this encounter Care Teams Salon Sales Consultant Relationship Specialty Start Date End Date No, Physician PCP - General 11/01/16 documented as of this encounter
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
--- OUTSIDE RECORDS SUMMARY | 2024-04-02 11:56 | XMS_ITS | Encounter Summary ---
Author Organization [facility] Healthcare Address [address] [place] [address] Care Team Providers Care Parts Counter Specialist Name Role Phone Kaylie Baez MD Primary Care Provider [phone] Encounter Details Date Type Department Care Team (Late st Contact Info) Description 05/31/2013 2:29 AM IC DESIGN ENGINEER - 05/31/2013 3:45 AM IC DESIGN ENGINEER Hospital Encounter [facility] Milena Juares MD [address] [place] [address] Streptococcal sore throat; Tobacco use disorder Social History Tobacco Use Types Packs/Day Years Used Date Smoking Tobacco: Never Assessed Alcohol Use Standard Drinks/Week Comments No 0 (1 standard drink = 0.6 oz pur e alcohol) Comments Unknown Sex and Gender Information Value Date Recorded Sex Assigned at Not on file Legal Sex Female 8:40 PM IC DESIGN ENGINEER Gender Identity Female 12/02/2022 6:55 PM CDT Sexual Orientation Straight 12/02/2022 6: 55 PM CDT documented as of this encounter Plan of Treatment Not on file documented as of this encounter Procedures Procedure Name Priority Date/Time Associated Diagnosis Comments DISCHARGE CUMULATIVE SUMMARY ADDENDUM Routine 06/02/2013 12:35 AM IC DESIGN ENGINEER THROAT SWAB STREPTOCOCCUS RAPID ANTIGEN GROUP A Routine 05/31/2013 2:35 AM IC DESIGN ENGINEER MICROBIOLOGY SUMMARY Routine 05/31/2013 12:00 AM IC DESIGN ENGINEER DISCHARGE LABORATORY CUMULATIVE REPORT Routine 05/31/2013 12:00 AM IC DESIGN ENGINEER documented in this encounter Results * Discharge Cumulative Summary Addendum (06/02/2013 12:35 AM IC DESIGN ENGINEER) 06/02/2013 12:3 5 AM IC DESIGN ENGINEER Narrative HISTORICAL RESULTS - 06/02/2013 12:35 AM IC DESIGN ENGINEER Patient No: [id number] ? [facility] Patient Name: BRENDA SHI ? [facility] Healthcare Age: 17 YRS ?: 1995 ?Sex:F ?[address] )[id number] ?? Adm Dt: 05/31/2013 ?[place], [place] ??[address] Created: 06/02/2013 ??0035 ?? Pt. Type: E ? Discharge Dt: 05/31/2013 ? Pathologists: Lesia Livingston MD Admit DrConsuelo Attend Dr: MILENA COOPER MD ?MICRO - RESPIRATORY THROAT BETA ONLY ?Collected: 05/31/13234 ? Received: 05/31/13325 Source: THROAT ?Started: 05/31/13326 ? FINAL REPORT ?06/01/13 0656 ? LIGHT GROWTH OF GROUP A BETA STREPTOCOCCI ? GROUP A STREP ARE PREDICTABLY SUSCEPTIBLE TO PENICILLIN, ?THE DRUG OF CHOICE. ??THEY ARE ALSO SUSCEPTIBLE TO OTHER ?BETA-LACTAM ANTIBIOTICS. ? FINAL REPORT CALLED TO: DONOVAN BELL/TIM WITH READBACK ?? END OF CHART ? Page: ?? 1 us Historical Provider MD LAB MICROBIOLOGY - GENERA L ORDERABLES Final Result Performing Organization Address [facility] Co de Phone Number HISTORICAL RESULTS * Throat swab Streptococcus Rapid Antigen Group A (05/31/2013 2:35 AM IC DESIGN ENGINEER) Strep A ag oropharyngeal Negative NEGATIVE HISTORICAL RESULTS Throat 05/31/2013 2:3 5 AM IC DESIGN ENGINEER Milena Cooper MD LAB BLOOD ORDERABLES Sri l Result Performing Organization Address [facility] Co de Phone Number HISTORICAL RESULTS * Microbiology Summary (05/31/2013 12:00 AM IC DESIGN ENGINEER) 05/31/2013 Narrative HISTORICAL RESULTS - 06/02/2013 12:36 AM IC DESIGN ENGINEER ? [facility] ?CLINICAL LABORATORIES ? MICROBIOLOGY REPORT PATIENT NAME: ??BRENDA SHI ? MED RECORD#: ??[id number] BIRTHDATE: ??1995 ?? AGE: ??17 YRS SEX: F ?PATIENT#: ? [id number] ADMITTING DR: ??MILENA COOPER MD ? ATTENDING DR: ??MILENA COOPER MD ? ACCESSION#: ?? [id number] CREATED: ??06/02/13 ?? 0034 ? ADMIT DATE: ?? 05/31/13 ?MICRO - RESPIRATORY THROAT BETA ONLY ?Collected: 05/31/13 0235 ? Received: 05/31/13 0326 Source: THROAT ?Started: 05/31/13 0327 ?06/01/13 0656 ? LIGHT GROWTH OF GROUP A BETA STREPTOCOCCI ? GROUP A STREP ARE PREDICTABLY SUSCEPTIBLE TO PENICILLIN, ?THE DRUG OF CHOICE. ??THEY ARE ALSO SUSCEPTIBLE TO OTHER ?BETA-LACTAM ANTIBIOTICS. ? FINAL REPORT CALLED TO: DONOVAN BELL/ER WITH READBACK ?? END OF CHART us Historical Provider LAB MICROBIOLOGY - GENERA L ORDERABLES Final Result HISTORICAL RESULTS * Discharge Laboratory Cumulative Report (05/31/2013 12:00 AM IC DESIGN ENGINEER) 05/31/2013 Narrative HISTORICAL RESULTS - 06/01/2013 12:34 AM IC DESIGN ENGINEER Patient No: [id number] ? [facility] Patient Name: BRENDA SHI ? [facility] Age: 17 YRS ?: 1995 ?Sex:F ?[address] )[phone] ?? Adm Dt: 05/31/2013 ?[place], [place] ??[address] Created: 06/01/2013 ??0034 ?? Pt. Type: E ? Discharge Dt: 05/31/2013 ? Pathologists: Lesia Livingston MD Admit DrConsuelo Attend Dr: MILENA COOPER MD ? SEROLOGY ?Collection Date: ?05/31/13 ?Collection Time: ?0235 ? Ref Range: ?? Units: [NEGATIVE] ?GRP A BETA STR ?NEGATIVE ?? END OF CHART ? Page: ?? 1 us Historical Provider LAB BLOOD ORDERABLES Sri l Result HISTORICAL RESULTS documented in this encounter Visit Diagnoses Diagnosis Streptococcal sore throat Tobacco use disorder documented in this encounter Care Teams Parts Counter Specialist Relationship Specialty Start Date End Date Kaylie Baez MD PCP - General 06/09/11 10/05/16 documented as of this encounter
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
--- OUTSIDE RECORDS SUMMARY | 2024-04-02 11:56 | XMS_ITS | Encounter Summary ---
Author Organization [facility] Facility Care Team Providers Care Laborer Car Barn Name Role Phone No, Physician Primary Care Provider [phone] Encounter Details Date Type Department Care Team (Latest Contact Info) Description 12/30/2018 Travel Social History Tobacco Use Types Packs/Day Years Used Date Smoking Tobacco: Never Smokeless Tobacco: Never Alcohol Use Standard Drinks/Week Comments No 0 (1 standard drink = 0.6 oz pur e alcohol) Comments No Sex and Gender Information Value Date Recorded Sex Assigned at Not on file Legal Sex Female 8:40 PM WORK CAR OPERATOR Gender Identity Female 12/02/2022 6:55 PM CDT Sexual Orientation Straight 12/02/2022 6: 55 PM CDT documented as of this encounter Plan of Treatment Not on file documented as of this encounter Visit Diagnoses Not on filedocumented in this encounter Care Teams Laborer Car Barn Relationship Specialty Start Date End Date No, Physician PCP - General 11/01/16 documented as of this encounter
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
--- OUTSIDE RECORDS SUMMARY | 2024-04-02 11:56 | XMS_ITS | Encounter Summary ---
Author Organization [facility] Healthcare Address [address] [place] [address] Care Team Providers Care Social Services Analyst Name Role Phone No, Physician Primary Care Provider [phone] Encounter Details Date Type Department Care Team (Late st Contact Info) Description 11/01/2016 8:02 AM CDT - 11/01/2016 10:51 AM CDT Emergency [facility] Emergency Department [address] [place] [address] Hal Monk MD [address] [place] [address] Discharge Disposition: Discharge to home or self care Social History Tobacco Use Types Packs/Day Years Used Date Smoking Tobacco: Never Assessed Alcohol Use Standard Drinks/Week Comments No 0 (1 standard drink = 0.6 oz pur e alcohol) Comments Unknown Sex and Gender Information Value Date Recorded Sex Assigned at Not on file Legal Sex Female 8:40 PM IMAGING SYSTEM ADMINISTRATOR Gender Identity Female 12/02/2022 6:55 PM CDT Sexual Orientation Straight 12/02/2022 6: 55 PM CDT documented as of this encounter Discharge Disposition Disposition Code Departure Means Destination Discharge to home or self care documented in this encounter Plan of Treatment Not on file documented as of this encounter Procedures Procedure Name Priority Date/Time Associated Diagnosis Comments XR SPINE LUMBAR 2 OR 3 VIEWS Routine 11/01/2016 2:13 PM CDT TRICHOMONAS ANTIGEN STAT 11/01/2016 9 :45 AM CDT N. GONORRHOEAE NA AMP, URINE STAT 11/01/2016 8:34 AM CDT CHLAMYDIA TRACHOMATIS BY NA AMP, URINE STAT 11/01/2016 8:34 AM CDT URINALYSIS AND REFLEX TO MICROSCOPIC AND CULTURE STAT 11/01/2016 8:34 AM CDT DISCHARGE LABORATORY CUMULATIVE REPORT 11/01/2016 12:00 AM CDT documented in this encounter Results * XR Spine Lumbar 2 or 3 Views (11/01/2016 2:13 PM CDT) Anatomical Region Laterality Modality Spine N/A Radiographic Lissette ging 11/01/2016 2:13 PM CDT Narrative 11/01/2016 2:13 PM CDT DATE OF EXAM: ??Nov 01 2016 ??9:13AM Acc#: ??[id number] ??[id number] - XR Lumbar Spine 2-3 Views ?? DIAGNOSIS: ??BACK PAIN AND STD CHECK CLINICAL HISTORY: ? RESULT: EXAMINATION: ??XR Lumbar Spine 2-3 Views HISTORY: ??Back pain COMPARISON/CORRELATION: ??None FINDINGS: Frontal, lateral, and cone-down L5-S1 lateral views of the lumbar spine were obtained. ??Alignment is normal. ??Vertebral body heights and disc spaces are adequate. ??No fracture or bony destructive change. ??Transitional L5 vertebra noted. Pseudoarticulation of a prominent left lateral transverse process with S1. ??Retained stool within the colon noted. IMPRESSION: No degenerative change. Electronically signed by: Jesús Dent M.D. ? SHIP'S PILOT: ??PSC TRANSCRIBE DATE/TIME: ??Nov 01 2016 ??8:35P RADIOLOGIST: ??JESÚS DENT M.D. ??READ ON: ??Nov 01 2016 ??8:39P ORDERING DR: HAL MONK M.D. THIS DOCUMENT HAS BEEN ELECTRONICALLY SIGNED BY: ??JESÚS DENT M.D. ??ON: ??Nov 01 2016 ??8:35P Attending: ??ALESHIA, ??HAL Requesting: ??ALESHIA, ??HAL Requesting Fax: ??-- Attending Fax: ??-- Attending ID: ??[id number] Requesting ID: ??[id number] Report To 1 ID: ?? Report To 1 Name: ??, ?? Report To 1 FAX: ??-- Report To 2 ID: ?? Report To 2 Name: ??, ?? Report To 2 FAX: ??-- NextGen Order #: ?? Procedure Note Miscellaneous, Not In File / Provider, MD Breezy - 11/01/2016 DATE OF EXAM: Nov 01 2016 9:13AM Acc#: [id number] - XR Lumbar Spine 2-3 Views DIAGNOSIS: BACK PAIN AND STD CHECK CLINICAL HISTORY: RESULT: EXAMINATION: XR Lumbar Spine 2-3 Views HISTORY: Back pain COMPARISON/CORRELATION: None FINDINGS: Frontal, lateral, and cone-down L5-S1 lateral views of the lumbar spine were obtained. Alignment is normal. Vertebral body heights and disc spaces are adequate. No fracture or bony destructive change. Transitional L5 vertebra noted. Pseudoarticulation of a prominent left lateral transverse process with S1. Retained stool within the colon noted. IMPRESSION: No degenerative change. Electronically signed by: Jesús Dent M.D. SHIP'S PILOT: [facility] TRANSCRIBE DATE/TIME: Nov 01 2016 8:35P RADIOLOGIST: JESÚS DENT M.D. READ ON: Nov 01 2016 8:39P ORDERING DR: HAL MONK M.D. THIS DOCUMENT HAS BEEN ELECTRONICALLY SIGNED BY: JESÚS DENT M.D. ON: Nov 01 2016 8:35P Attending: HAL MONK Requesting: HAL MONK Requesting Fax: -- Attending Fax: -- Attending ID: [id number] Requesting ID: [id number] Report To 1 ID: Report To 1 Name: , Report To 1 FAX: -- Report To 2 ID: Report To 2 Name: , Report To 2 FAX: -- NextGen Order #: us Hal Monk MD IMG XR PROCEDURES Final Resul t * Trichomonas Antigen (11/01/2016 9:45 AM CDT) Trichomonas ag, fld Negative Negative [facility] Comment:Testing performed by : [facility] [address] , [place] [address] Vaginal 11/01/2016 9:45 AM CDT 11/01/2016 9:47 AM CDT Ari Bosch MD LAB BLOOD ORDERABLES Final Res ult Performing Organization Address [facility] Co de Phone Number [facility] [address] [place] [address] * Chlamydia trachomatis by NA Amp, urine (11/01/2016 8:34 AM CDT) Pathologist [facility] [place] C. trachomatis RNA Negative Negative [facility] Comment: Interpretive Data This test has been developed to maximize the sensitivity of detection of infection while minimizing false positives, with the combined goals of enabling treatment of infection and interrupting the spread of infection, and is intended for medical purposes. Any result should be interpreted together with the clinical presentation and risk assessment, particularly the prevalence of infection in the patient's demographic group. ??Significant discrepancies should be evaluated by additional measures. Note - Amplification testing on urine specimens was developed and its performance characteristics were determined by [facility]. This testing has not been cleared or approved by the Food and Drug Administration. Current Interpretive Data was last revised on 2015 Urine 11/01/2016 8:34 AM CDT 11/01/2016 12:47 PM CDT Ari Bosch MD LAB URINE ORDERABLES Final Res ult Performing Organization Address [facility] de Phone Number [facility] [address] [place] [address] * N. Gonorrhoeae NA Amp, urine (11/01/2016 8:34 AM CDT) N. gonorrhoeae RNA Negative Negative [facility] Comment: Interpretive Data This test has been developed to maximize the sensitivity of detection of infection while minimizing false positives, with the combined goals of enabling treatment of infection and interrupting the spread of infection, and is intended for medical purposes. Any result should be interpreted together with the clinical presentation and risk assessment, particularly the prevalence of infection in the patient's demographic group. ??Significant discrepancies should be evaluated by additional measures. -- Note - Amplification testing on urine specimens was developed and its performance characteristics were determined by [facility]. This testing has not been cleared or approved by the Food and Drug Administration. Current Interpretive Data was last revised on 2015 Urine 11/01/2016 8:34 AM CDT 11/01/2016 12:47 PM CDT us Ari Bosch MD LAB URINE ORDERABLES Final Res ult [facility] [address] Department [place] [address] * Urinalysis reflex to microscopic and culture (11/01/2016 8:34 AM CDT) Color, ur Yellow [facility] Comment:Testing performed by : [facility] [place] [address] Clarity, ur Clear [facility] Comment:Testing performed by : [facility], [address] [place] [address] Specific gravity, ur 1.011 1.001 - 1.033 [facility] Comment:Testing performed by : [facility], [address] [place] [address] pH, ur 6.0 5.0 - 8.0 [facility] Comment:Testing performed by : [facility] [address] [place] [address] Protein, ur ql Negative Negative [facility] Comment:Testing performed by : [facility], [address] [place] [address] Glucose, ur ql Negative Negative [facility] Comment:Testing performed by : [facility], [address] [place] [address] Ketones, ur Negative Negative [facility] Comment:Testing performed by : [facility] [address] [place] [address] Bilirubin, ur Negative Negative [facility] Comment:Testing performed by : [facility], [address] [place] [address] Blood, ur Negative Negative [facility] Comment:Testing performed by : [facility], [address], [place] [address] Urobilinogen, ur Normal [facility] Comment:Testing performed by : [facility], [address], [place] [address] Nitrites, ur Negative Negative [facility] Comment:Testing performed by : [facility], [address], [place] [address] Leukocyte esterase, ur Negative Negative [facility] Comment:Testing performed by : [facility], [address], [place] [address] Urine 11/01/2016 8:34 AM CDT 11/01/2016 8:56 AM CDT Ari Bosch MD LAB MICROBIOLOGY - GENERAL ORD ERABLES Final Result [facility] [address] Department [place] [address] * DISCHARGE LABORATORY CUMULATIVE REPORT (11/01/2016 12:00 AM CDT) Narrative 11/01/2016 12:00 AM CDT Ordered by an unspecified provider. Historical Provider LAB BLOOD ORDERABLES Sri l Result documented in this encounter Visit Diagnoses Not on filedocumented in this encounter Care Teams Social Services Analyst Relationship Specialty Start Date End Date No, Physician PCP - General 11/01/16 documented as of this encounter
--- OUTSIDE RECORDS SUMMARY | 2024-04-02 11:56 | XMS_ITS | Encounter Summary ---
Author Organization [facility] Facility Care Team Providers Care Public Services Librarian Name Role Phone Kaylie Baez MD Primary Care Provider [phone] Encounter Details Date Type Department Care Team (Late st Contact Info) Description 02/24/2012 2:02 PM TOBACCO FLAVORER - 02/24/2012 11:59 PM TOBACCO FLAVORER Hospital Encounter [facility] Kaden Sultana MD [address] [place] [address] Social History Tobacco Use Types Packs/Day Years Used Date Smoking Tobacco: Never Assessed Comments Unknown Sex and Gender Information Value Date Recorded Sex Assigned at Not on file Legal Sex Female 8:40 PM TOBACCO FLAVORER Gender Identity Female 12/02/2022 6:55 PM CDT Sexual Orientation Straight 12/02/2022 6: 55 PM CDT documented as of this encounter Plan of Treatment Not on file documented as of this encounter Visit Diagnoses Not on filedocumented in this encounter Care Teams Public Services Librarian Relationship Specialty Start Date End Date Kaylie Baez MD PCP - General 06/09/11 10/05/16 documented as of this encounter
== END 2024-03-28 08:40 | disposition home or self-care (01) ==
PROVIDERS: Emergency Provider Student in an Organized Health Care Education/Training Program
DX: A05.9 Bacterial foodborne intoxication, unspecified (principal)
CPT/HCPCS: 36415; 80048; 83735; 85025; 96361; 96374; 99284; A9270; J2405; J7120

== ENCOUNTER 2024-05-22 11:41 | Emergency (ER) | payer OTHER, SELFPAY ==
[2024-05-22 11:43] VITALS: BP 145/79; PULSE 72; RESP 15; TEMP 36.7; O2SAT 100
--- OUTSIDE RECORDS SUMMARY | 2024-05-22 11:46 | XMS_ITS | Patient Health Summary ---
Author Organization [facility] [employer] Address [address] [facility] [place] [address] Care Team Providers Care Linderman Machine Operator Name Role Phone Yeimy Hoskins MD Primary Care Provider Unavail able Note from [facility],non-owned Affiliates and Associated Physician Practices is amultiple site organization consisting of ambulatory clinics and hospital sitesin [place], [place], [place] and [place]. This disclosure is being madepursuant to the Care Everywhere program and may not contain all information available regarding this patient. Last updated 18.[facility] [employer] Allergies No known active allergies Social History [...] 76 08/19/2013 2:32 PM CDT Temperature 36.7 C (98.1 F) 08/19/2013 2:32 PM CDT Respiratory Rate 16 08/19/2013 2:32 PM CDT [...] PM CDT 08/19/2013 3:33 PM CDT Narrative [facility] - 08/19/2013 3:54 PM CDT [facility] ACETAMINOPHEN COMMENT Contact the [place] [facility] at [facility] Cardinal Elizondo [phone] for advice in interpreting acetaminophen levels or if an overdose is suspected. Critical values: 4 Hours Post Ingestion: Critical value > 200 g/mL 12 Hours Post Ingestion: Critical value >150 g/mL Random values: Critical value: For patients 18 years or less: No numeric critical defined. Critical value: For patients 18 years or older: >50 g/mL. Osorio Fuentes MD LAB - CHEMISTRY OR DERABLES Performing Organization Address [facility] de Phone Number [facility] [address] [place] [address] * PT PTT PANEL (08/19/2013 3:28 PM CDT) PT 10.7 9.4 - 11.2 sec 08/19/2013 3:47 PM CDT [facility] INR 1.01 0.9 - 1.1 08/19/2013 3:47 PM CDT [facility] PTT 24.8 24.0 - 32.0 sec 08/19/2013 3:47 PM CDT [facility] Blood BLOOD SPECIMEN / Unknown 08/19/2013 3:28 PM CDT 08/19/2013 3:33 PM CDT Narrative [facility] - 08/19/2013 3:47 PM CDT Conventional Anticoagulant Therapy INR Reference Ranges: 2.0-3.0 Intensive Anticoagulant Therapy INR Reference Ranges: 2.5-3.5 Osorio Fuentes MD LAB - COAGULATION ORDERABLES Performing Organization Address [facility] Co de Phone Number [facility] [address] [place] [address] * (ABNORMAL) CBC W AUTO DIFFERENTIAL (08/19/2013 3:28 PM CDT) WBC 6.5 4.5 - 11.0 x10^9/L 08/19/2013 3:39 PM CDT [facility] RBC 4.94 4.10 - 5.10 x10^12/L 08/19/2013 3:39 PM CDT [facility] Hemoglobin 13.1 12.0 - 16.0 gm/dL [...] - 400 x10^9/L 08/19/2013 3:39 PM CDT [facility] RDW-CV 13.8 11.5 - 14.0 % 08/19/2013 3:39 PM CDT [facility] MPV 9.9(H) 6.0 - 9.5 fl 08/19/2013 3:39 PM CDT [facility] Neutrophils % 59.1 31.0 - 78.0 % 08/19/2013 3:39 PM CDT [facility] Lymphocytes % 31.4 13.0 - 54.0 % 08/19/2013 3:39 PM CDT [facility] Monocytes % 8.7 4.0 - 13.0 % 08/19/2013 3:39 PM CDT [facility] Eosinophils % 0.3 0.0 - 8.0 % 08/19/2013 3:39 PM CDT [facility] Basophils % 0.3 % 08/19/2013 3:39 PM CDT [facility] Immature Granulocytes 0.2 % 08/19/2013 3:39 PM CDT [facility] Neutrophil Absolute 3.86 x10^9/L 08/19/2013 3:39 PM CDT [facility] Lymphocytes Absolute 2.05 x10^9/L 08/19/2013 3:39 PM CDT [facility] Monocytes Absolute 0.57 x10^9/L 08/19/2013 3:39 PM CDT [facility] Eosinophils Absolute 0.02 x10^9/L 08/19/2013 3:39 PM CDT [facility] Basophils Absolute 0.02 x10^9/L 08/19/2013 3:39 PM CDT [facility] Immature Granulocytes Absolute 0.01 x10^9/L 08/19/2013 3:39 PM CDT [facility] Blood BLOOD SPECIMEN / Unknown 08/19/2013 3:28 PM CDT 08/19/2013 3:33 PM CDT Osorio Fuentes MD LAB - HEMATOLOGY O RDERABLES [facility] [address] [place] [address] * (ABNORMAL) COMPREHENSIVE METABOLIC PANEL (08/19/2013 3:28 PM CDT) Glucose 79 74 - 106 mg/dL 08/19/2013 3:55 PM CDT [facility] Sodium 141 136 - 145 mmol/L 08/19/2013 3:55 PM CDT [facility] Potassium 3.5 3.5 - 5.1 mmol/L 08/19/2013 3:55 PM CDT [facility] Chloride 109(H) 98 - 107 mmol/L 08/19/2013 3:55 PM CDT [facility] CO2 22 22 - 31 mmol/L 08/19/2013 3:55 PM CDT [facility] Calcium 9.6 8.5 - 10.1 mg/dL 08/19/2013 3:55 PM CDT [facility] Anion Gap 10 5 - 15 mmol/L 08/19/2013 3:55 PM CDT [facility] BUN 9 7 - 21 mg/dL 08/19/2013 3:55 PM CDT [facility] Creatinine 0.52 0.50 - 1.30 mg/dL 08/19/2013 3:55 PM CDT [facility] eGFR by MDRD >60 mL/min/1.7 3m2 08/19/2013 3:55 PM CDT [facility] Comment:eGFR calculations ar e not performed for children under 18 years old. eGFR by MDRD >60 mL/min/1.7 3m2 08/19/2013 3:55 PM CDT [facility] Comment:eGFR calculations ar e not performed for children under 18 years old. Alkaline Phosphatase 74 38 - 126 U/L 08/19/2013 3:55 PM CDT [facility] ALT 20 12 - 78 U/L 08/19/2013 3:55 PM CDT [facility] AST 17 5 - 40 U/L 08/19/2013 3:55 PM CDT [facility] Protein Total 8.1 6.4 - 8.2 gm/dL 08/19/2013 3:55 PM CDT [facility] Albumin 4.3 3.4 - 5.0 gm/dL 08/19/2013 3:55 PM CDT [facility] Bilirubin Total 0.3 0.2 - 1.0 mg/dL 08/19/2013 3:55 PM CDT [facility] Blood BLOOD SPECIMEN / Unknown 08/19/2013 3:28 PM CDT 08/19/2013 3:33 PM CDT Osorio Fuentes MD LAB - CHEMISTRY OR DERABLES Performing Organization Address [facility] Co de Phone Number [facility] [address] [place] [address] * LIPASE BLOOD (08/19/2013 3:28 PM CDT) Lipase 94 73 - 393 U/L 08/19/2013 3:55 PM CDT [facility] Blood BLOOD SPECIMEN / Unknown 08/19/2013 3:28 PM CDT 08/19/2013 3:33 PM CDT Osorio Fuentes MD LAB - CHEMISTRY OR DERABLES Performing Organization Address [facility] de Phone Number [facility] [address] [place] [address] * CT CERVICAL SPINE NON CONTRAST (08/19/2013 [...] LAB - POINT OF CAR E ORDERABLES Performing Organization Address [facility]/ZIP Co de Phone Number [facility] [address] [place] [address] * (ABNORMAL) DRUG SCREEN TOX URINE PANEL (08/19/2013 2:59 PM CDT) Amphetamines Screen Urine Not Detected Not Detected 08/19/2013 3:23 PM CDT [facility] Barbiturates Screen Urine Not Detected Not Detected 08/19/2013 3:23 PM CDT [facility] Benzodiazepines Screen Urine Not Detected Not Detected 08/19/2013 3:23 PM CDT [facility] Cannabinoids Screen Urine Detected(A) Not Detected 08/19/2013 3:23 PM CDT [facility] Cocaine Screen Urine Not Detected Not Detected 08/19/2013 3:23 PM CDT [facility] Methadone Screen Urine Not Detected Not Detected 08/19/2013 3:23 PM CDT [facility] Opiate Screen Urine Not Detected Not Detected 08/19/2013 3:23 PM CDT [facility] Phencyclidine Screen Urine Not Detected Not Detected 08/19/2013 3:23 PM CDT [facility] Urine URINE / Unknown 08/19/2013 2 :59 PM CDT 08/19/2013 3:07 PM CDT Narrative [facility] - 08/19/2013 3:23 PM CDT This drug screen is designed for MEDICAL purposes only. It is not to be used for legal purposes, including but not limited to worker's comp, police investigations, occupational issues, child custody, etc. Any positive result is only presumptive and must be confirmed with a separate confirmatory test ordered by the physician. Drug Screening Test Cutoff Values: AMPHETAMINES 1000 ng/ml BARBITURATES 200 ng/ml BENZODIAZEPINES 200 ng/ml CANNABINOIDS(THC) 50 ng/ml COCAINE 300 ng/ml METHADONE 300 ng/ml OPIATES 300 ng/ml PHENCYCLIDINE(PCP)25 ng/ml Osorio Fuentes MD LAB - URINE CHEMIS TRY ORDERABLES Performing Organization Address [facility]/ZIP Co de Phone Number [facility] [address] [place] [address] * GROSS + MICRO EXAM (06/08/2001 1:30 PM RECREATION FACILITIES SUPERVISOR) Result CASE NUMBER [id number] [facility] REPORT Comment: ORDERING PHYSICIAN SOY TELLO SPECIMEN TYPE Preauricular Pit CLINICAL HISTORY The patient is a 5-year-old girl with a preauricular pit who underwent excision of the same. GROSS DESCRIPTION The specimen is received in a single saline-filled container labeled with the patient's name and preauricular pit . It consists of a single unoriented ellipse of brown skin with attached subcutaneous tissue as well as a separate segment of peoples-red soft tissue. The skin measures 0.6 x 0.2 cm. The underlying soft tissue measures 1.0 x 1.5 x 0.5 cm. The separate soft tissue fragment measures 0.6 x 0.5 x 0.3 cm. The skin is remarkable for a single umbilication. The specimen is bisected the cut surface shows a peoples-brown sinus directly below the aforementioned umbilication. A small fragment of unremarkable peoples- white cartilage is identified at the deep surgical margin. The specimen is submitted in its entirety in cassette A1 . (LBM/akn) MICROSCOPIC DESCRIPTION 1 H/E. Sections of the preauricular pit show unremarkable, keratinized, hair-bearing skin. The underlying dermis is remarkable for a sinus tract lined by keratinizing squamous epithelium. The surrounding dermis shows foci of chronic inflammation and foreign body giant cell reaction. Unremarkable subcutis, cartilage, and skeletal muscle are also seen. (LBM/dcr) DIAGNOSIS DIAGNOSIS SKIN, SUBCUTIS, AND CARTILAGE, PREAURICULAR PIT , EXCISION - SQUAMOUS EPITHELIAL LINED SINUS TRACT CONSISTENT WITH PREAURICULAR PIT. This case has been personally reviewed and interpreted by the attending (teaching) pathologist. Back Seam Stitcher Alyson Tompkins RESIDENT IN PATHOLOG Raúl Collins M.D. PATHOLOGIST Tammy Lemos M.D. ELECTRONICALLY TAMMY GRIFFIN MISCELLANEOUS SAMPLES / Unknown 06/08/2001 1:30 PM RECREATION FACILITIES SUPERVISOR 06/08/2001 3:39 PM RECREATION FACILITIES SUPERVISOR Historical Provider LAB - PATHOLOGY/C YTOLOGY ORDERABLES [facility] REPORT Care Teams Linderman Machine Operator Relationship Specialty Start Date End Date Yeimy Hoskins MD PCP - General 11/25/17
--- OUTSIDE RECORDS SUMMARY | 2024-05-22 11:46 | XMS_ITS | Encounter Summary ---
Author Organization [facility] Address [address] [place] [address] Phone Care Team Providers Care Driver Engineer Name Role Phone Provider, None Primary Care Provider Unavailabl e Encounter Details Date Type Department Care Team (Late st Contact Info) Description 05/06/2021 Lab Requisition [facility] Services [address] [place] [address] Jania Kyle, SHEATHER, GEOLOGICAL SAMPLE TESTER [address] [place] [address] Encounter for pre-employment examination Social History Tobacco Use Types Packs/Day Years Used Date Smoking Tobacco: Never Assessed Comments Unknown Sex and Gender Information Value Date Recorded Sex Assigned at Not on file Legal Sex Female 8:18 AM CUSTOMS INSPECTOR Gender Identity Not on file Sexual Orientation Not on file COVID-19 Exposure Response Date Recorded In the last month, have you been in contact with someone who was confirmed or suspected to have Coronavirus / COVID-19? Yes 05/06/2021 1:09 PM CUSTOMS INSPECTOR documented as of this encounter Plan of Treatment Not on file documented as of this encounter Procedures Procedure Name Priority Date/Time Associated Diagnosis Comments QUANTIFERON-TB GOLD PLUS Routine 05/06/2021 2:22 PM CUSTOMS INSPECTOR Encounter for pre-employment examination MMRV PANEL Routine 05/06/2021 2:22 PM CUSTOMS INSPECTOR Encounter for pre-employment examination MUMPS IGG Routine 05/06/2021 2:22 PM CUSTOMS INSPECTOR Encounter for pre-employment examination HERPES ZOSTER (VARICELLA) IGG Routine 05/06/2021 2:22 PM CUSTOMS INSPECTOR Encounter for pre-employment examination RUBEOLA (MEASLES) IGG Routine 05/06/2021 2:22 PM CUSTOMS INSPECTOR Encounter for pre-employment examination RUBELLA IMMUNITY IGG Routine 05/06/2021 2:22 PM CUSTOMS INSPECTOR Encounter for pre-employment examination HEPATITIS B SURFACE ANTIBODY (HBSAB) Routine 05/06/2021 2:22 PM CUSTOMS INSPECTOR Encounter for pre-employment examination documented in this encounter Results * (ABNORMAL) HERPES ZOSTER (VARICELLA) IGG (05/06/2021 2:22 PM CUSTOMS INSPECTOR) VARICELLA ZOSTER IGG 0.3(L) >=1.1 AI 05/06/2021 10:30 PM CUSTOMS INSPECTOR [facility] Blood No Phlebotomy Charged / Unknown 05/06/2021 2:22 PM CUSTOMS INSPECTOR 05/06/2021 5:04 PM CUSTOMS INSPECTOR Narrative [facility] - 05/06/2021 10:30 PM CUSTOMS INSPECTOR <= 0.8 Negative. No detectable VZV IgG antibody. 0.9 - 1.0 Equivocal >=1.1 Positive Antibody testing was performed by multiplex flow immunoassay on the Urge platform. us Jania Kyle SHEATHER, GEOLOGICAL SAMPLE TESTER IMMUNOLOGY ORDERABL ES Final Result Performing Organization Address City/State/[facility] Co de Phone Number [facility] [address] [place] [address], * RUBEOLA (MEASLES) IGG (05/06/2021 2:22 PM CUSTOMS INSPECTOR) MEASLES AB IGG 4.1 >=1.1 AI 05/06/2021 10:30 PM CUSTOMS INSPECTOR [facility] Blood No Phlebotomy Charged / Unknown 05/06/2021 2:22 PM CUSTOMS INSPECTOR 05/06/2021 5:04 PM CUSTOMS INSPECTOR Narrative [facility] - 05/06/2021 10:30 PM CUSTOMS INSPECTOR <= 0.8 Negative. No detectable Measles IgG antibody. 0.9 - 1.0 Equivocal >=1.1 Positive Antibody testing was performed by multiplex flow immunoassay on the BioPlex platform. us Jania Shirlene Kyle SHEATHER, GEOLOGICAL SAMPLE TESTER IMMUNOLOGY ORDERABL ES Final Result Performing Organization Address City/[facility]/ZIP Co de Phone Number [facility] [address] [place] [address], [place] * RUBELLA IMMUNITY IGG (05/06/2021 2:22 PM CUSTOMS INSPECTOR) RUBELLA IMMUNITY Immune Immune, Invalid 05/06/2021 10:30 PM CUSTOMS INSPECTOR [facility] Blood No Phlebotomy Charged / Unknown 05/06/2021 2:22 PM CUSTOMS INSPECTOR 05/06/2021 5:04 PM CUSTOMS INSPECTOR Narrative [facility] - 05/06/2021 10:30 PM CUSTOMS INSPECTOR Antibody testing was performed by multiplex flow immunoassay on the BioPlex platform. us Jania Shirlene Kyle SHEATHER, GEOLOGICAL SAMPLE TESTER CHEMISTRY ORDERABLE S Final Result Performing Organization Address [facility] Co de Phone Number [facility] [address] [place] [address], [place] * MUMPS IGG (05/06/2021 2:22 PM CUSTOMS INSPECTOR) Mumps Ab IgG 2.0 >=1.1 AI 05/06/2021 10:30 PM CUSTOMS INSPECTOR [facility] Blood No Phlebotomy Charged / Unknown 05/06/2021 2:22 PM CUSTOMS INSPECTOR 05/06/2021 5:04 PM CUSTOMS INSPECTOR Narrative [facility] - 05/06/2021 10:30 PM CUSTOMS INSPECTOR <= 0.8 Negative. No detectable Mumps IgG antibody. 0.9 - 1.0 Equivocal >=1.1 Positive Antibody testing was performed by multiplex flow immunoassay on the BioPlex platform. us Jania Shirlene Behrends SHEATHER, GEOLOGICAL SAMPLE TESTER IMMUNOLOGY ORDERABL ES Final Result Performing Organization Address City/[facility]/ZIP Co de Phone Number [facility] [address] [place] [address], * QUANTIFERON-TB GOLD PLUS (05/06/2021 2:22 PM CUSTOMS INSPECTOR) NIL CONTROL 0.04 <8.01 IU/mL 05/08/2021 12:54 PM CUSTOMS INSPECTOR [facility] TB ANTIGEN 1 0.04 <0.35 IU/mL 05/08/2021 12:54 PM CUSTOMS INSPECTOR [facility] TB ANTIGEN 2 0.01 <0.35 IU/mL 05/08/2021 12:54 PM CUSTOMS INSPECTOR [facility] MITOGEN CONTROL >10.00 >0.49 IU/mL 05/08/19 12:54 PM CUSTOMS INSPECTOR [facility] INTEPRETATION TB NEGATIVE NEGATIVE, NEGATIVE (TB antigen response less than 25% of internal negative control value) 05/08/2021 12:54 PM CUSTOMS INSPECTOR [facility] Comment:No immune response t o Mycobacterium tuberculosis antigens was noted. M. tuberculosis infection unlikely. Blood No Phlebotomy Charged / Unknown 05/06/2021 2:22 PM CUSTOMS INSPECTOR 05/07/2021 6:17 AM CUSTOMS INSPECTOR Narrative [facility] - 05/08/2021 12:54 PM CUSTOMS INSPECTOR A POSITIVE QUANTIFERON-TB GOLD PLUS RESULT SHOULD NOT BE THE SOLE OR DEFINITIVE BASIS FOR DETERMINING INFECTION WITH M. TUBERCULOSIS. Diagnosing or excluding tuberculosis disease, and assessing the probability of LTBI, requires a combination of epidemiological, historical, medical and diagnostic findings (e.g., acid fast bacilli (AFB) smear and culture, chest xray) that should be taken into account when interpreting QFT-Plus results. Furthermore, the magnitude of the measured gamma interferon [...] Infection with other Mycobacteria, including M. kansasii, M. szulgai, and M. marinum, may cause positive [...] younger than age 17 years 3. women us Jania Kyle APRN, GEOLOGICAL SAMPLE TESTER IMMUNOLOGY ORDERABL ES Final Result Performing Organization Address [facility] Co de Phone Number [facility] [address] [place] [address], [place] * HEPATITIS B SURFACE ANTIBODY (HBSAB) (05/06/2021 2:22 PM CUSTOMS INSPECTOR) HEPATITIS B SURFACE ANTIBODY <8.00 mIU/mL [facility] ARCH [id number] B 05/06/2021 10:24 PM CUSTOMS INSPECTOR [facility] Comment:Individual is consid ered not immune to HBV infection. Blood No Phlebotomy Charged / Unknown 05/06/2021 2:22 PM CUSTOMS INSPECTOR 05/06/2021 5:02 PM CUSTOMS INSPECTOR us Jania Kyle SHEATHER, GEOLOGICAL SAMPLE TESTER CHEMISTRY ORDERABLE S Final Result Performing Organization Address [facility] Co de Phone Number [facility] [address] [facility] [place] [address], [place] documented in this encounter Visit Diagnoses Diagnosis Encounter for pre-employment examination Health examination of defined subpopulation documented in this encounter Care Teams Driver Engineer Relationship Specialty Start Date End Date Provider, None CHON PCP - General 05/06/21 documented as of this encounter
--- OUTSIDE RECORDS SUMMARY | 2024-05-22 11:46 | XMS_ITS | Clinical Summary ---
Author Organization [facility] Address [address] [facility] [place] [address] Care Team Providers Care Government Teacher Name Role Phone Yeimy Hoskins MD Primary Care Provider Unavail able Source Comments [facility],non-owned Affiliates and Associated Physician Practices is amultiple site organization consisting of ambulatory clinics and hospital sitesin [place], [place], [place] and [place]. This disclosure is being madepursuant to the Care Everywhere program and may not contain all information available regarding this patient. Last updated 18.[facility] Allergies No known active allergies Social History [...] of 3 - 19+ 3-dose series) 07/09/2015 COVID-19 VACCINE (1 - 2023-2 5 season) 2023 INFLUENZA VACCINE (#1) 2023 DEPRESSION SCREENING 04/13/2024 ZOSTER VACCINE (1 of 2) 2046 HIB VACCINE Aged Out No longer eligi ble based on patient's age to complete this topic HPV VACCINE Aged Out No longer eligi ble based on patient's age to complete this topic MENINGOCOCCAL (Group B) VACCINE Aged Out No longer eligible based on patient's age to complete this topic MENINGOCOCCAL VACCINE Aged Out No ena kristyn eligible based on patient's age to complete this topic PNEUMOCOCCAL VACCINE Aged Out No long er eligible based on patient's age to complete this topic Care Teams Government Teacher Relationship Specialty Start Date End Date Yeimy Hoskins MD PCP - General 11/25/17
--- OUTSIDE RECORDS SUMMARY | 2024-05-22 11:46 | XMS_ITS | Referral Summary ---
Author Organization [facility] Address [address] [facility] [place] [address] Care Team Providers Care Supervisor Landscape Name Role Phone Yeimy Hoskins MD Primary Care Provider Unavail able Source Comments [facility],non-owned Affiliates and Associated Physician Practices is amultiple site organization consisting of ambulatory clinics and hospital sitesin [place], [place], [place] and [place]. This disclosure is being madepursuant to the Care Everywhere program and may not contain all information available regarding this patient. Last updated 18.[facility] Allergies No known active allergies Social History [...] of Treatment Not on file Care Teams Supervisor Landscape Relationship Specialty Start Date End Date Yeimy Hoskins MD PCP - General 11/25/17
--- OUTSIDE RECORDS SUMMARY | 2024-05-22 11:46 | XMS_ITS | Clinical Summary ---
Author Organization [facility] Address [address] [place] [phone] Phone Care Team Providers Care Litigation Legal Secretary Name Role Phone Provider, None Primary Care [...] on file Legal Sex Female 8:18 AM METROPOLITAN EDITOR Gender Identity Not on file Sexual Orientation Not on file Last Filed Vital Signs Vital Sign Reading Time Taken Comments Blood Pressure 137/86 10/12/2022 9:07 PM CDT Pulse 78 10/12/2022 9:07 PM CDT Temperature 37.3 C (99.1 F) 10/12/2022 9:07 PM CDT Respiratory Rate 16 10/12/2022 9:07 PM CDT [...] Influenza Immunization (#1) 2023 03/06/2020 SARS-COV-2 Immunization ( season) 2023 04/18/2021, 03/21/2021 Respiratory Syncytial Virus [...] Date of Phone Billing Address Institutional Other [address] [place] [address] Care Teams Litigation Legal Secretary Relationship Specialty Start Date End Date Provider, None [place] PCP - General 05/06/21
--- OUTSIDE RECORDS SUMMARY | 2024-05-22 11:46 | XMS_ITS | Referral Summary ---
Author Organization [facility] Address [address] [place] [address] Care Team Providers Care Fixed Wing Aircraft Flight Engineer Name Role Phone No, Physician Primary Care Provider [phone] Allergies No known active allergies Medications PNV with viapukd-zblz-FT 27 mg iron- 1 mg tabletIndicatio ns:Vitamin Deficiency Prevention Take 1 tablet by mouth daily 30 tablet 11 05/25/2023 Active acetaminophen 500 mg capsule Take 2 [...] # Disposition: Follow up task sent to [facility] scheduling pool. Desires dc home today. 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 Cleared by cardiology for this . Desires TOLAC. [facility] calculator 63%. S/p counseling. HROB: [...] (which is an independent risk factor for [place] in and per literature review) - Previously [...] education: completed in all 3 trimesters [x] Well Head Pumper: TBD [] Car seat discussed [] PP [...] (10/04/2020): Added automatically from request for surgery [id number] Viral syndrome 08/05/2018 04/04/2020 Fever 08/05/2018 04/04/2020 [...] drink = 0.6 oz pur e alcohol) [facility] [employer] Answer Date Recorded In the past 12 months has e [employer], gas, oil, or water company threatened to [...] often do you attend chur ch or mandaen services? More than 4 times per year 05/24/2023 Do you belong to any clubs o r organizations such as druze groups, unions, fraternal or athletic groups, or [...] staff should administer the PHQ-9) 0 05/22/2023 [facility] of Occupat ional [facility] - Occupational Stress Questionnaire Answer [...] place to sleep or slept in a long term (including now)? No 05/24/2023 Murray Depression Scale Answer Date Recorded Murray Depression Scale Total 1 02/24/2023 The thought [...] on file Legal Sex Female 8:40 PM JEWEL BEARING GRINDER Gender Identity Female 12/02/2022 6:55 PM CDT Sexual Orientation Straight 12/02/2022 6: 55 PM CDT Last Filed Vital Signs Vital Sign Reading Time Taken Comments Blood Pressure 99/55 05/25/2023 7:20 AM JEWEL BEARING GRINDER Pulse 60 05/25/2023 7:20 AM JEWEL BEARING GRINDER Temperature 36.6 C (97.9 F) 05/25/2023 7:20 AM JEWEL BEARING GRINDER Respiratory Rate 18 05/25/2023 7:20 AM JEWEL BEARING GRINDER Oxygen Saturation 95% 05/25/2023 7:20 AM JEWEL BEARING GRINDER Inhaled Oxygen Concentration - - Weight 96.3 kg (212 lb 4.9 oz) 05/22/2023 9:40 P M JEWEL BEARING GRINDER Height 167.6 cm (5' 6 ) 06/11/2023 8:10 AM JEWEL BEARING GRINDER Body Mass Index 34.27 05/22/2023 9:40 PM JEWEL BEARING GRINDER Plan of Treatment Not on file Procedures [...] GENERAL ORDERABLES Final Result [facility] Department [place] [address] * Pap with reflex to High Risk HPV and Genotyping (Cytology Component) (12/02/2022 1:27 PM CDT) Thin prep (Pap test) 12/02/2022 1:27 PM CDT 12/02/2022 5:37 PM CDT Narrative PATHOLOGY [facility] - 12/04/2022 2:41 PM CDT EPIC results best viewed via link to PDF [facility] Lakisha Crook Laboratory [place] [address] Note to Patients: This report may contain [...] the details. CYTOPATHOLOGY REPORT FINAL Patient Name: BRENDA SHI Gender: F : 1995 (Age: 27) Address: [address] [place] [id number] [facility] #: [id number] Service: CLAY PIGEON LOADER Location: Patient Type: [facility] SPECIMEN Taken: 12/02/2022 Received: 12/02/2022 Accessioned: 12/03/2022 Reported: 12/04/2022 Physician(s): Shruthi Keys M.D. FINAL INTERPRETATION SOURCE OF SPECIMEN Liquid based Thin Prep pap with Reflex HPV: STATEMENT OF ADEQUACY - Satisfactory for evaluation - Endocervical cells/transformation zone sample present GENERAL CATEGORIZATION: - Negative for squamous intraepithelial lesion or malignancy INTERPRETATION: - Fungal organisms morphologically consistent with ericka species /12/04/2022 14:[address] (ASCP) Report Electronically Reviewed and Signed Out By HERMINIO Wilkinson MS (ASCP) 12/04/2022 14:41:52 Cervicovaginal Cytology (Pap Test) Disclaimer: The Pap test is a screening test used to detect cervical cancer and its precursors; it is not a diagnostic procedure. False negative and false positive results do occur. Pap test results should be interpreted in the context of pertinent clinical information and biopsy results as indicated. [facility] Clinical Laboratory Improvement Amendments (CLIA) mandate that cytologic and histologic results be correlated for laboratory corporate quality manager & improvement standards. FOR ALL HIGH-GRADE CASES we request submission of follow-up histological material and/or reports that have not been previously provided so that we may fulfill said required standards. Gross Description A. Liquid based Thin Prep pap with Reflex HPV: Cervical/vaginal - Screening ThinPrep with GC/Chlamydia Clinical Diagnosis [...] determined by the Surgical Pathology Department at as part of an ongoing compliance quality performance analyst program and in compliance with federally mandated regulations drawn from the Clinical Laboratory Improvement Act of 1988 (CLIA '88). Some of these tests rely on the use of analyte specific reagents and are subject to specific labeling requirements by the US Food and Drug Administration. Such diagnostic tests may only be performed in a facility that is certified by the Department of Health and Human Services as a high complexity laboratory under CLIA '88. The FDA has determined that such clearance or approval is not necessary. This test is used for clinical purposes. It should not be regarded as investigational or for research. Nevertheless, federal rules concerning the medical use of analyte specific reagents require that the following disclaimer be attached to the report: This test was developed and its performance characteristics determined by the Surgical Pathology Department of . It has not been cleared or approved by the U. S. Food and Drug Administration. Shruthi Keys MD LAB CYTOLOGY ORDERA BLES Final Result PATHOLOGY [facility] 3rd Floor [place], [place] [phone] from Last 3 Months or Most Recently Relevant to Health Maintenance Insurance * Guarantor: Brenda Shi Account Type Relation to Patient Date of Phone Billing Address Personal/Family Self [address] [place] [address] [facility] [place] [address] [facility] Advance Directives For more information, please contact: [phone] * Full Code (Latest Code Status on [...] in case of cardiopulmonary arrest Care Teams Fixed Wing Aircraft Flight Engineer Relationship Specialty Start Date End Date No, Physician PCP - General 11/01/16
--- OUTSIDE RECORDS SUMMARY | 2024-05-22 11:46 | XMS_ITS | Clinical Summary ---
Author Organization [facility] Address [address] [place] [address] Care Team Providers Care Cement Conveyor Operator Name Role Phone No, Physician Primary Care Provider Allergies No known active allergies Medications PNV with eprypph-apjf-CE 27 mg iron- 1 mg tabletIndicatio ns:Vitamin [...] # Disposition: Follow up task sent to [facility] scheduling pool. Desires dc home today. 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 Cleared by cardiology for this . Desires TOLAC. [facility] calculator 63%. S/p counseling. HROB: Maternal [...] (which is an independent risk factor for [place] in and per literature review) - Previously [...] education: completed in all 3 trimesters [x] Crawler Tractor Operator: TBD [] Car seat discussed [] [...] (10/04/2020): Added automatically from request for surgery [id number] Viral syndrome 08/05/2018 04/04/2020 Fever 08/05/2018 04/04/2020 [...] drink = 0.6 oz pur e alcohol) GTx Answer Date Recorded In the past 12 months has [employer], gas, oil, or water [employer] threatened to shut off services in your [...] often do you attend chur ch or adventist services? More than 4 times per year [...] staff should administer the PHQ-9) 0 05/22/2023 [facility] - Occupational Stress Questionnaire Answer Date [...] place to sleep or slept in a snf (including now)? No 05/24/2023 [place] Depression Scale Answer Date Recorded [place] Depression Scale Total 1 02/24/2023 The thought [...] file Legal Sex Female 8:40 PM RN ADVANCED Gender Identity Female 12/02/2022 6:55 PM CDT [...] Chas howard MD Complications: Intolera nce Delivery Location:[facility] Main C ampus ([facility] 58LD) 2023 Term 39w 1d 0h 31m 0h 25m/0h 06m 3.09 kg (6 lb 13 oz) F Epidur al N Livin g 8 9 Jacinto reich, Zackary Swanson MD Delivery Location:[facility] Main C ampus ([facility] 58LD) Last Filed Vital Signs Vital Sign Reading Time Taken Comments Blood Pressure 99/55 05/25/2023 7:20 AM RN ADVANCED Pulse 60 05/25/2023 7:20 AM RN ADVANCED Temperature 36.6 C (97.9 F) 05/25/2023 7:20 AM RN ADVANCED Respiratory Rate 18 05/25/2023 7:20 AM RN ADVANCED Oxygen Saturation 95% 05/25/2023 7:20 AM RN ADVANCED Inhaled Oxygen Concentration - - Weight 96.3 kg (212 lb 4.9 oz) 05/22/2023 9:40 P M RN ADVANCED Height 167.6 cm (5' 6 ) 06/11/2023 8:10 AM RN ADVANCED Body Mass Index 34.27 05/22/2023 9:40 PM RN ADVANCED Plan of Treatment Health Maintenance Due Date Last Done Comments Hepatitis B Screening 2014 Regular Well Visit/Exam 18-64 2014 Cervical Cancer Screening 12/03/2023 12/02/2022 Covid-19 Vaccine (2 - season) 2023 03/21/2021 Influenza Vaccine (#1) 2023 [...] LAB MICROBIOLOGY - GENERAL ORDERABLES Final Result [facility] Department [place] [address] * Pap with reflex to High Risk HPV and Genotyping (Cytology Component) (12/02/2022 1:27 PM CDT) Thin prep (Pap test) 12/02/2022 1:27 PM CDT 12/02/2022 5:37 PM CDT Narrative PATHOLOGY [facility] - 12/04/2022 2:41 PM CDT EPIC results best viewed via link to PDF [facility] Lakisha Crook Laboratory [place] [address] Note to Patients: This report may contain [...] Gender: F : 1995 (Age: 27) Address: [address] [place] [address] [facility] #: [id number] Service: COLLECTIONS OFFICER Location: Patient Type: [facility] SPECIMEN Taken: 12/02/2022 Received: 12/02/2022 Accessioned: 12/03/2022 [...] clinical information and biopsy results as indicated. [facility] Clinical Laboratory Improvement Amendments (CLIA) mandate that cytologic and histologic results be correlated for laboratory quality manager & improvement standards. FOR ALL [...] determined by the Surgical Pathology Department at [facility] as part of an ongoing quality manager program and in compliance with [...] determined by the Surgical Pathology Department of [facility]. It has not been cleared or approved by the U. S. Food and Drug Administration. Shruthi Keys MD LAB CYTOLOGY ORDERA BLES Final Result PATHOLOGY [facility] 3rd Floor [place], [place] [phone] from Last 3 Months or Most Recently Relevant to Health Maintenance Insurance * Guarantor: Brenda Shi Account Type Relation to Patient Date of Phone Billing Address Personal/Family Self [address] [place] [address] [facility] * Guarantor: Brenda Shi Account Type Relation to Patient Date of Phone Billing Address Personal/Family Self [address] [place] [address] [facility] Advance Directives For more information, please contact: [phone] * Full Code (Latest Code Status on [...] in case of cardiopulmonary arrest Care Teams Cement Conveyor Operator Relationship Specialty Start Date End Date No, Physician PCP - General 11/01/16
--- OUTSIDE RECORDS SUMMARY | 2024-05-22 12:15 | XMS_ITS | Clinical Summary ---
Author Organization [facility] Address [address] [facility] [place] [address] Care Team Providers Care Photogrammetric Surveyor Name Role Phone Yeimy Hoskins MD Primary Care Provider Unavail able Source Comments [facility],non-owned Affiliates and Associated Physician Practices is amultiple site organization consisting of ambulatory clinics and hospital sitesin [place], [place], [place] and [place]. This disclosure is being madepursuant to the Care Everywhere program and may not contain all information available regarding this patient. Last updated 18.[facility] Allergies No known active allergies Social History [...] age to complete this topic Care Teams Photogrammetric Surveyor Relationship Specialty Start Date End Date Yeimy Hoskins MD PCP - General 11/25/17
--- OUTSIDE RECORDS SUMMARY | 2024-05-22 12:15 | XMS_ITS | Patient Health Summary ---
Author Organization [facility] [employer] Address [address] [facility] [place] [address] Care Team Providers Care Strip Cutting Machine Operator Name Role Phone Yeimy Hoskins MD Primary Care Provider Unavail able Note from [facility],non-owned Affiliates and Associated Physician Practices is amultiple site organization consisting of ambulatory clinics and hospital sitesin [place], [place], [place] and [place]. This disclosure is being madepursuant to the Care Everywhere program and may not contain all information available regarding this patient. Last updated 18.[facility] [employer] Allergies No known active allergies Social History [...] [facility] - 08/19/2013 3:54 PM CDT [facility] ACETAMINOPHEN COMMENT Contact the [place] [facility] at [facility] Cardinal Elizondo for advice in interpreting acetaminophen [...] - CHEMISTRY OR DERABLES Performing Organization Address [facility] de Phone Number [facility] [address] [place] [address] * PT PTT PANEL (08/19/2013 3:28 PM CDT) PT 10.7 9.4 - 11.2 sec 08/19/2013 3:47 PM CDT [facility] INR 1.01 0.9 - 1.1 08/19/2013 3:47 PM CDT [facility] PTT 24.8 24.0 - 32.0 sec 08/19/2013 3:47 PM CDT [facility] Blood BLOOD SPECIMEN / Unknown 08/19/2013 3:28 PM CDT 08/19/2013 3:33 PM CDT Narrative [facility] - 08/19/2013 3:47 PM CDT Conventional Anticoagulant Therapy INR Reference Ranges: 2.0-3.0 Intensive Anticoagulant Therapy INR Reference Ranges: 2.5-3.5 Osorio Fuentes MD LAB - COAGULATION ORDERABLES Performing Organization Address [facility] Co de Phone Number [facility] [address] [place] [address] * (ABNORMAL) CBC W AUTO DIFFERENTIAL (08/19/2013 3:28 PM CDT) WBC 6.5 4.5 - 11.0 x10^9/L 08/19/2013 3:39 PM CDT [facility] RBC 4.94 4.10 - 5.10 x10^12/L 08/19/2013 3:39 PM CDT [facility] Hemoglobin 13.1 12.0 - 16.0 [...] - 400 x10^9/L 08/19/2013 3:39 PM CDT [facility] RDW-CV 13.8 11.5 - 14.0 % 08/19/2013 3:39 PM CDT [facility] MPV 9.9(H) 6.0 - 9.5 fl 08/19/2013 3:39 PM CDT [facility] Neutrophils % 59.1 31.0 - 78.0 % 08/19/2013 3:39 PM CDT [facility] Lymphocytes % 31.4 13.0 - 54.0 % 08/19/2013 3:39 PM CDT [facility] Monocytes % 8.7 4.0 - 13.0 % 08/19/2013 3:39 PM CDT [facility] Eosinophils % 0.3 0.0 - 8.0 % 08/19/2013 3:39 PM CDT [facility] Basophils % 0.3 % 08/19/2013 3:39 PM CDT [facility] Immature Granulocytes 0.2 % 08/19/2013 3:39 PM CDT [facility] Neutrophil Absolute 3.86 x10^9/L 08/19/2013 3:39 PM CDT [facility] Lymphocytes Absolute 2.05 x10^9/L 08/19/2013 3:39 PM CDT [facility] Monocytes Absolute 0.57 x10^9/L 08/19/2013 3:39 PM CDT [facility] Eosinophils Absolute 0.02 x10^9/L 08/19/2013 3:39 PM CDT [facility] Basophils Absolute 0.02 x10^9/L 08/19/2013 3:39 PM CDT [facility] Immature Granulocytes Absolute 0.01 x10^9/L 08/19/2013 3:39 PM CDT [facility] Blood BLOOD SPECIMEN / Unknown 08/19/2013 3:28 PM CDT 08/19/2013 3:33 PM CDT Osorio Fuentes MD LAB - HEMATOLOGY O RDERABLES [facility] [address] [place] [address] * (ABNORMAL) COMPREHENSIVE METABOLIC PANEL (08/19/2013 3:28 PM CDT) Glucose 79 74 - 106 mg/dL 08/19/2013 3:55 PM CDT [facility] Sodium 141 136 - 145 mmol/L 08/19/2013 3:55 PM CDT [facility] Potassium 3.5 3.5 - 5.1 mmol/L 08/19/2013 3:55 PM CDT [facility] Chloride 109(H) 98 - 107 mmol/L 08/19/2013 3:55 PM CDT [facility] CO2 22 22 - 31 mmol/L 08/19/2013 3:55 PM CDT [facility] Calcium 9.6 8.5 - 10.1 mg/dL 08/19/2013 3:55 PM CDT [facility] Anion Gap 10 5 - 15 mmol/L 08/19/2013 3:55 PM CDT [facility] BUN 9 7 - 21 mg/dL 08/19/2013 3:55 PM CDT [facility] Creatinine 0.52 0.50 - 1.30 mg/dL 08/19/2013 3:55 PM CDT [facility] eGFR by MDRD >60 mL/min/1.7 3m2 08/19/2013 3:55 PM CDT [facility] Comment:eGFR calculations ar e not performed for children under 18 years old. eGFR by MDRD >60 mL/min/1.7 3m2 08/19/2013 3:55 PM CDT [facility] Comment:eGFR calculations ar e not performed for children under 18 years old. Alkaline Phosphatase 74 38 - 126 U/L 08/19/2013 3:55 PM CDT [facility] ALT 20 12 - 78 U/L 08/19/2013 3:55 PM CDT [facility] AST 17 5 - 40 U/L 08/19/2013 3:55 PM CDT [facility] Protein Total 8.1 6.4 - 8.2 gm/dL 08/19/2013 3:55 PM CDT [facility] Albumin 4.3 3.4 - 5.0 gm/dL 08/19/2013 3:55 PM CDT [facility] Bilirubin Total 0.3 0.2 - 1.0 mg/dL 08/19/2013 3:55 PM CDT [facility] Blood BLOOD SPECIMEN / Unknown 08/19/2013 3:28 PM CDT 08/19/2013 3:33 PM CDT Osorio Fuentes MD LAB - CHEMISTRY OR DERABLES Performing Organization Address [facility] Co de Phone Number [facility] [address] [place] [address] * LIPASE BLOOD (08/19/2013 3:28 PM CDT) Lipase 94 73 - 393 U/L 08/19/2013 3:55 PM CDT [facility] Blood BLOOD SPECIMEN / Unknown 08/19/2013 3:28 PM CDT 08/19/2013 3:33 PM CDT Osorio Fuentes MD LAB - CHEMISTRY OR DERABLES Performing Organization Address [facility] de Phone Number [facility] [address] [place] [address] * CT CERVICAL SPINE NON CONTRAST (08/19/2013 [...] OF CAR E ORDERABLES Performing Organization Address [facility]/ZIP Co de Phone Number [facility] POCT TESTING [address] [place] [address] * (ABNORMAL) DRUG SCREEN TOX URINE PANEL (08/19/2013 2:59 PM CDT) Amphetamines Screen Urine Not Detected Not Detected 08/19/2013 3:23 PM CDT [facility] Barbiturates Screen Urine Not Detected Not Detected 08/19/2013 3:23 PM CDT [facility] Benzodiazepines Screen Urine Not Detected Not Detected 08/19/2013 3:23 PM CDT [facility] Cannabinoids Screen Urine Detected(A) Not Detected 08/19/2013 3:23 PM CDT [facility] Cocaine Screen Urine Not Detected Not Detected 08/19/2013 3:23 PM CDT [facility] Methadone Screen Urine Not Detected Not Detected 08/19/2013 3:23 PM CDT [facility] Opiate Screen Urine Not Detected Not Detected 08/19/2013 3:23 PM CDT [facility] Phencyclidine Screen Urine Not Detected Not Detected 08/19/2013 3:23 PM CDT [facility] Urine URINE / Unknown 08/19/2013 2 :59 PM CDT 08/19/2013 3:07 PM CDT Narrative [facility] - 08/19/2013 3:23 PM CDT [...] URINE CHEMIS TRY ORDERABLES Performing Organization Address [facility]/ZIP Co de Phone Number [facility] [address] [place] [address] * GROSS + MICRO EXAM (06/08/2001 1:30 PM BLADDER TRIMMER) Result CASE NUMBER [id number] [facility] PATH REPORT Comment: ORDERING PHYSICIAN [...] and interpreted by the attending (teaching) pathologist. Human Resources Receptionist Alyson Tompkins RESIDENT IN PATHOLOG Raúl Collins M.D. PATHOLOGIST Tammy Lemos M.D. ELECTRONICALLY TAMMY GRIFFIN MISCELLANEOUS SAMPLES / Unknown 06/08/2001 1:30 PM BLADDER TRIMMER 06/08/2001 3:39 PM BLADDER TRIMMER Historical Provider LAB - PATHOLOGY/C YTOLOGY ORDERABLES [facility] LAB PATH REPORT Care Teams Strip Cutting Machine Operator Relationship Specialty Start Date End Date Yeimy Hoskins MD PCP - General 11/25/17
--- OUTSIDE RECORDS SUMMARY | 2024-05-22 12:15 | XMS_ITS | Referral Summary ---
Author Organization [facility] Address [address] [place] [address] Care Team Providers Care Button Maker Name Role Phone No, Physician Primary Care Provider [phone] Allergies No known active allergies Medications PNV with jpyvcwq-hyqd-GH 27 mg iron- 1 mg tabletIndicatio ns:Vitamin [...] # Disposition: Follow up task sent to [facility] scheduling pool. Desires dc home today. 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 Cleared by cardiology for this . Desires TOLAC. [facility] calculator 63%. S/p counseling. HROB: [...] (which is an independent risk factor for [place] in and per literature review) - Previously [...] education: completed in all 3 trimesters [x] Metal Fabricating Inspector: TBD [] Car seat discussed [] PP [...] (10/04/2020): Added automatically from request for surgery [id number] Viral syndrome 08/05/2018 04/04/2020 Fever 08/05/2018 04/04/2020 [...] drink = 0.6 oz pur e alcohol) [facility] [employer] Answer Date Recorded In the past 12 months has e [employer], gas, oil, or water company threatened to [...] often do you attend chur ch or jehovah's witness services? More than 4 times per year 05/24/2023 Do you belong to any clubs o r organizations such as sikhism groups, unions, fraternal or athletic groups, or [...] staff should administer the PHQ-9) 0 05/22/2023 [facility] Occupat ional [facility] - Occupational Stress Questionnaire Answer Date Recorded [...] in a retirement (including now)? No 05/24/2023 [place] Depression Scale Answer Date Recorded [place] Depression Scale Total 1 02/24/2023 The thought [...] on file Legal Sex Female 8:40 PM FREIGHT CAR LOADER Gender Identity Female 12/02/2022 6:55 PM CDT Sexual Orientation Straight 12/02/2022 6: 55 PM CDT Last Filed Vital Signs Vital Sign Reading Time Taken Comments Blood Pressure 99/55 05/25/2023 7:20 AM FREIGHT CAR LOADER Pulse 60 05/25/2023 7:20 AM FREIGHT CAR LOADER Temperature 36.6 C (97.9 F) 05/25/2023 7:20 AM FREIGHT CAR LOADER Respiratory Rate 18 05/25/2023 7:20 AM FREIGHT CAR LOADER Oxygen Saturation 95% 05/25/2023 7:20 AM FREIGHT CAR LOADER Inhaled Oxygen Concentration - - Weight 96.3 kg (212 lb 4.9 oz) 05/22/2023 9:40 P M FREIGHT CAR LOADER Height 167.6 cm (5' 6 ) 06/11/2023 8:10 AM FREIGHT CAR LOADER Body Mass Index 34.27 05/22/2023 9:40 PM FREIGHT CAR LOADER Plan of Treatment Not on file Procedures [...] GENERAL ORDERABLES Final Result EUNICE BAEZ [facility] Department [place] [address] * Pap with reflex to High Risk HPV and Genotyping (Cytology Component) (12/02/2022 1:27 PM CDT) Thin prep (Pap test) 12/02/2022 1:27 PM CDT 12/02/2022 5:37 PM CDT Narrative PATHOLOGY LOCATED [facility]IN [facility] - 12/04/2022 2:41 PM CDT EPIC results best viewed via link to PDF [facility] Lakisha Crook Laboratory [place] [address] Note to Patients: This report may contain [...] Gender: F : 1995 (Age: 27) Address: [address] [place] [id number] [facility] #: [id number] Service: BOX SEALING MACHINE CATCHER Location: Patient Type: LOCATED [facility]IN [facility] SPECIMEN Taken: 12/02/2022 Received: 12/02/2022 Accessioned: 12/03/2022 [...] clinical information and biopsy results as indicated. [facility] Clinical Laboratory Improvement Amendments (CLIA) mandate that cytologic and histologic results be correlated for laboratory quality control clerk & improvement standards. FOR ALL HIGH-GRADE CASES [...] determined by the Surgical Pathology Department at [facility] as part of an ongoing director of quality control program and in compliance with federally mandated [...] determined by the Surgical Pathology Department of [facility]. It has not been cleared or approved by the U. S. Food and Drug Administration. Shruthi Keys MD LAB CYTOLOGY ORDERA BLES Final Result PATHOLOGY [facility] 3rd Floor [place], [place] [phone] from Last 3 Months or Most Recently Relevant to Health Maintenance Insurance * Guarantor: Brenda Shi Account Type Relation to Patient Date of Phone Billing Address Personal/Family Self [address] [place] [address] [facility] [place] [address] [facility] Advance Directives For more information, please contact: [phone] * Full Code (Latest Code Status on [...] in case of cardiopulmonary arrest Care Teams Button Maker Relationship Specialty Start Date End Date No, Physician PCP - General 11/01/16
--- OUTSIDE RECORDS SUMMARY | 2024-05-22 12:15 | XMS_ITS | Referral Summary ---
Author Organization [facility] Address [address] [facility] [place] Lozano [address] Care Team Providers Care Instrument Lens Generator Name Role Phone Yeimy Hoskins MD Primary Care Provider Unavail able Source Comments [facility],non-owned Affiliates and Associated Physician Practices is amultiple site organization consisting of ambulatory clinics and hospital sitesin [place], [place], [place] and [place]. This disclosure is being madepursuant to the Care Everywhere program and may not contain all information available regarding this patient. Last updated 18.[facility] Allergies No known active allergies Social History [...] of Treatment Not on file Care Teams Instrument Lens Generator Relationship Specialty Start Date End Date Yeimy Hoskins MD PCP - General 11/25/17
--- OUTSIDE RECORDS SUMMARY | 2024-05-22 12:15 | XMS_ITS | Clinical Summary ---
Author Organization [facility] Address [address] [place] [address] Care Team Providers Care Teacher Instrumental Name Role Phone No, Physician Primary Care Provider [phone] Allergies No known active allergies Medications PNV with pazipkf-dfgc-CB 27 mg iron- 1 mg tabletIndicatio ns:Vitamin [...] # Disposition: Follow up task sent to [facility] scheduling pool. Desires dc home today. 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 Cleared by cardiology for this . Desires TOLAC. [facility] calculator 63%. S/p counseling. HROB: Maternal [...] (which is an independent risk factor for [place] in and per literature review) - Previously [...] education: completed in all 3 trimesters [x] Head Of Marketing Analytics: TBD [] Car seat discussed [] PP [...] (10/04/2020): Added automatically from request for surgery [id number] Viral syndrome 08/05/2018 04/04/2020 Fever 08/05/2018 04/04/2020 [...] drink = 0.6 oz pur e alcohol) [employer] Answer Date Recorded In the past 12 months has [employer], gas, oil, or water [employer] threatened to shut off services in your [...] often do you attend chur ch or jainism services? More than 4 times per year 05/24/2023 Do you belong to any clubs o r organizations such as advent groups, unions, fraternal or athletic groups, or [...] staff should administer the PHQ-9) 0 05/22/2023 [facility] - Occupational Stress Questionnaire Answer [...] place to sleep or slept in a penitentiary (including now)? No 05/24/2023 [place] Depression Scale Answer Date Recorded [place] Depression Scale Total 1 02/24/2023 The thought [...] on file Legal Sex Female 8:40 PM BLADE CHANGER Gender Identity Female 12/02/2022 6:55 PM CDT [...] Chas howard MD Complications: Intolera nce Delivery Location:[facility] Main C ampus ([facility] 58LD) 2023 Term 39w 1d 0h 31m 0h 25m/0h 06m 3.09 kg (6 lb 13 oz) F Epidur al N Livin g 8 9 Jacinto reich, Zackary Swanson MD Delivery Location:[facility] Main C ampus ([facility] 58LD) Last Filed Vital Signs Vital Sign Reading Time Taken Comments Blood Pressure 99/55 05/25/2023 7:20 AM BLADE CHANGER Pulse 60 05/25/2023 7:20 AM BLADE CHANGER Temperature 36.6 C (97.9 F) 05/25/2023 7:20 AM BLADE CHANGER Respiratory Rate 18 05/25/2023 7:20 AM BLADE CHANGER Oxygen Saturation 95% 05/25/2023 7:20 AM BLADE CHANGER Inhaled Oxygen Concentration - - Weight 96.3 kg (212 lb 4.9 oz) 05/22/2023 9:40 P M BLADE CHANGER Height 167.6 cm (5' 6 ) 06/11/2023 8:10 AM BLADE CHANGER Body Mass Index 34.27 05/22/2023 9:40 PM BLADE CHANGER Plan of Treatment Health Maintenance Due Date [...] LAB MICROBIOLOGY - GENERAL ORDERABLES Final Result [facility] One [facility] [place] [address] * Pap with reflex to High Risk HPV and Genotyping (Cytology Component) (12/02/2022 1:27 PM CDT) Thin prep (Pap test) 12/02/2022 1:27 PM CDT 12/02/2022 5:37 PM CDT Narrative PATHOLOGY [facility] - 12/04/2022 2:41 PM CDT EPIC results best viewed via link to PDF [facility] Lakisha Crook Laboratory [place] [address] Note to Patients: This report may contain [...] Gender: F : 1995 (Age: 27) Address: [address] [place] [id number] [facility] #: [id number] Service: COTTON FEEDER Location: Patient Type: [facility] SPECIMEN Taken: 12/02/2022 Received: 12/02/2022 Accessioned: [...] clinical information and biopsy results as indicated. [facility] Clinical Laboratory Improvement Amendments (CLIA) mandate that cytologic and histologic results be correlated for laboratory quality management coordinator & improvement standards. FOR ALL HIGH-GRADE CASES [...] determined by the Surgical Pathology Department at [facility] as part of an ongoing quality control engineer program and in compliance with federally [...] determined by the Surgical Pathology Department of [facility]. It has not been cleared or approved by the U. S. Food and Drug Administration. Shruthi Keys MD LAB CYTOLOGY ORDERA BLES Final Result PATHOLOGY [facility] 3rd Floor [place], [place] [phone] from Last 3 Months or Most Recently Relevant to Health Maintenance Insurance * Guarantor: Brenda Shi Account Type Relation to Patient Date of Phone Billing Address Personal/Family Self [address] [place] [address] [place] [facility] * Guarantor: Brenda Shi Account Type Relation to Patient Date of Phone Billing Address Personal/Family Self [address] [place] [address] [facility] Advance Directives For more information, please contact: [phone] * Full Code (Latest Code Status on [...] in case of cardiopulmonary arrest Care Teams Teacher Instrumental Relationship Specialty Start Date End Date No, Physician PCP - General 11/01/16
--- OUTSIDE RECORDS SUMMARY | 2024-05-22 12:15 | XMS_ITS | Encounter Summary ---
Author Organization [facility] Address [address] [place] [address] Phone Care Team Providers Care Computer Hardware Developer Name Role Phone Provider, None Primary Care Provider Unavailabl e Encounter Details Date Type Department Care Team (Late st Contact Info) Description 05/06/2021 Lab Requisition [facility] Laboratory Services [address] [place] [address] Jania Kyle, INDUSTRIAL TRAINING SPECIALIST, OPHTHALMIC AIDE [address] [place] [address] Encounter for pre-employment examination Social History Tobacco Use Types Packs/Day Years Used Date Smoking Tobacco: Never Assessed Comments Unknown Sex and Gender Information Value Date Recorded Sex Assigned at Not on file Legal Sex Female 8:18 AM HOSE TESTER Gender Identity Not on file Sexual Orientation Not on file COVID-19 Exposure Response Date Recorded In the last month, have you been in contact with someone who was confirmed or suspected to have Coronavirus / COVID-19? Yes 05/06/2021 1:09 PM HOSE TESTER documented as of this encounter Plan of Treatment Not on file documented as of this encounter Procedures Procedure Name Priority Date/Time Associated Diagnosis Comments QUANTIFERON-TB GOLD PLUS Routine 05/06/2021 2:22 PM HOSE TESTER Encounter for pre-employment examination MMRV PANEL Routine 05/06/2021 2:22 PM HOSE TESTER Encounter for pre-employment examination MUMPS IGG Routine 05/06/2021 2:22 PM HOSE TESTER Encounter for pre-employment examination HERPES ZOSTER (VARICELLA) IGG Routine 05/06/2021 2:22 PM HOSE TESTER Encounter for pre-employment examination RUBEOLA (MEASLES) IGG Routine 05/06/2021 2:22 PM HOSE TESTER Encounter for pre-employment examination RUBELLA IMMUNITY IGG Routine 05/06/2021 2:22 PM HOSE TESTER Encounter for pre-employment examination HEPATITIS B SURFACE ANTIBODY (HBSAB) Routine 05/06/2021 2:22 PM HOSE TESTER Encounter for pre-employment examination documented in this encounter Results * (ABNORMAL) HERPES ZOSTER (VARICELLA) IGG (05/06/2021 2:22 PM HOSE TESTER) VARICELLA ZOSTER IGG 0.3(L) >=1.1 AI 05/06/2021 10:30 PM HOSE TESTER [facility] Blood No Phlebotomy Charged / Unknown 05/06/2021 2:22 PM HOSE TESTER 05/06/2021 5:04 PM HOSE TESTER Narrative [facility] - 05/06/2021 10:30 PM HOSE TESTER <= 0.8 Negative. No detectable VZV IgG antibody. 0.9 - 1.0 Equivocal >=1.1 Positive Antibody testing was performed by multiplex flow immunoassay on the [employer] platform. us Jania Kyle INDUSTRIAL TRAINING SPECIALIST, OPHTHALMIC AIDE IMMUNOLOGY ORDERABL ES Final Result Performing Organization Address City/State/[facility] Co de Phone Number [facility] [address] [place] [address], * RUBEOLA (MEASLES) IGG (05/06/2021 2:22 PM HOSE TESTER) MEASLES AB IGG 4.1 >=1.1 AI 05/06/2021 10:30 PM HOSE TESTER [facility] Blood No Phlebotomy Charged / Unknown 05/06/2021 2:22 PM HOSE TESTER 05/06/2021 5:04 PM HOSE TESTER Narrative [facility] - 05/06/2021 10:30 PM HOSE TESTER <= 0.8 Negative. No detectable Measles IgG antibody. 0.9 - 1.0 Equivocal >=1.1 Positive Antibody testing was performed by multiplex flow immunoassay on the [employer] platform. us Jania Shirlene Kyle INDUSTRIAL TRAINING SPECIALIST, OPHTHALMIC AIDE IMMUNOLOGY ORDERABL ES Final Result Performing Organization Address City/[facility]/ZIP Co de Phone Number [facility] [address] [place] [address], [place] * RUBELLA IMMUNITY IGG (05/06/2021 2:22 PM HOSE TESTER) RUBELLA IMMUNITY Immune Immune, Invalid 05/06/2021 10:30 PM HOSE TESTER [facility] Blood No Phlebotomy Charged / Unknown 05/06/2021 2:22 PM HOSE TESTER 05/06/2021 5:04 PM HOSE TESTER Narrative [facility] - 05/06/2021 10:30 PM HOSE TESTER Antibody testing was performed by multiplex flow immunoassay on the [employer] platform. us Jania Shirlene Kyle INDUSTRIAL TRAINING SPECIALIST, OPHTHALMIC AIDE CHEMISTRY ORDERABLE S Final Result Performing Organization Address [facility] Co de Phone Number [facility] [address] [place] [address], [place] * MUMPS IGG (05/06/2021 2:22 PM HOSE TESTER) Mumps Ab IgG 2.0 >=1.1 AI 05/06/2021 10:30 PM HOSE TESTER [facility] Blood No Phlebotomy Charged / Unknown 05/06/2021 2:22 PM HOSE TESTER 05/06/2021 5:04 PM HOSE TESTER Narrative [facility] - 05/06/2021 10:30 PM HOSE TESTER <= 0.8 Negative. No detectable Mumps IgG antibody. 0.9 - 1.0 Equivocal >=1.1 Positive Antibody testing was performed by multiplex flow immunoassay on the [employer] platform. us Jania Shirlene Behrends INDUSTRIAL TRAINING SPECIALIST, OPHTHALMIC AIDE IMMUNOLOGY ORDERABL ES Final Result Performing Organization Address City/[facility]/ZIP Co de Phone Number [facility] [address] [place] [address], * QUANTIFERON-TB GOLD PLUS (05/06/2021 2:22 PM HOSE TESTER) NIL CONTROL 0.04 <8.01 IU/mL 05/08/2021 12:54 PM HOSE TESTER [facility] TB ANTIGEN 1 0.04 <0.35 IU/mL 05/08/2021 12:54 PM HOSE TESTER [facility] TB ANTIGEN 2 0.01 <0.35 IU/mL 05/08/2021 12:54 PM HOSE TESTER [facility] MITOGEN CONTROL >10.00 >0.49 IU/mL 05/08/19 12:54 PM HOSE TESTER [facility] INTEPRETATION TB NEGATIVE NEGATIVE, NEGATIVE (TB antigen response less than 25% of internal negative control value) 05/08/2021 12:54 PM HOSE TESTER [facility] Comment:No immune response t o Mycobacterium tuberculosis antigens was noted. M. tuberculosis infection unlikely. Blood No Phlebotomy Charged / Unknown 05/06/2021 2:22 PM HOSE TESTER 05/07/2021 6:17 AM HOSE TESTER Narrative [facility] - 05/08/2021 12:54 PM HOSE TESTER A POSITIVE QUANTIFERON-TB GOLD PLUS RESULT SHOULD [...] years 3. women us Jania Kyle APRN, OPHTHALMIC AIDE IMMUNOLOGY ORDERABL ES Final Result Performing Organization Address [facility] Co de Phone Number [facility] [address] [place] [address], [place] * HEPATITIS B SURFACE ANTIBODY (HBSAB) (05/06/2021 2:22 PM HOSE TESTER) HEPATITIS B SURFACE ANTIBODY <8.00 mIU/mL [facility] [id number] B 05/06/2021 10:24 PM HOSE TESTER [facility] Comment:Individual is consid ered not immune to HBV infection. Blood No Phlebotomy Charged / Unknown 05/06/2021 2:22 PM HOSE TESTER 05/06/2021 5:02 PM HOSE TESTER us Jania Kyle INDUSTRIAL TRAINING SPECIALIST, OPHTHALMIC AIDE CHEMISTRY ORDERABLE S Final Result Performing Organization Address [facility] Co de Phone Number [facility] [address] [facility] [place] [address], [place] documented in this encounter Visit Diagnoses Diagnosis Encounter for pre-employment examination Health examination of defined subpopulation documented in this encounter Care Teams Computer Hardware Developer Relationship Specialty Start Date End Date Provider, None CHON PCP - General 05/06/21 documented as of this encounter
--- OUTSIDE RECORDS SUMMARY | 2024-05-22 12:15 | XMS_ITS | Clinical Summary ---
Author Organization [facility] Address [address] [place] [phone] Phone Care Team Providers Care Stock Parts Inspector Name Role Phone Provider, None Primary Care [...] on file Legal Sex Female 8:18 AM ENVIRONMENTAL DEPARTMENT MANAGER Gender Identity Not on file Sexual Orientation [...] Date of Phone Billing Address Institutional Other [address] [place] [address] Care Teams Stock Parts Inspector Relationship Specialty Start Date End Date Provider, None [place] PCP - General 05/06/21
[2024-05-22 12:27] LABS: Influenza A QL RT-PCR Negative (Negative); Influenza B QL RT-PCR Negative (Negative); RSV RNA, RT-PCR Negative (Negative); SARS-CoV-2 RNA PCR Negative (Negative)
--- NOTE | 2024-05-22 12:40 | ED_ITS ---
HPI - URI/Sore Throat General Chief Complaint: Upper Respiratory Infection Stated Complaint: cough/congestion Time Seen by Provider: 05/22/24 12:03 History of Present Illness HPI Narrative: 28-year-old otherwise healthy female presenting for upper respiratory infection symptoms and COVID exposure. She has a daughter that tested positive for COVID and patient has been having sinus drainage with green mucus and rhinorrhea. No cough, no shortness of breath, chest pain, fever, chills. Was otherwise in her normal state of health. Has not tried any symptom controlling medications thus far. Related Data Allergies Allergy/AdvReac Type Severity Reaction Status Date / Time No Known Allergies Allergy Verified 05/22/24 11:42 Review of Systems Review of Systems: As reviewed above in [facility] Social History Social History Substance use type: marijuana Exam Narrative: GENERAL: [Well-appearing, well-nourished, and in no acute distress.] HEAD: [Normocephalic, atraumatic.] EYES: [PERRLA and EOMI.] ENT: clear rhinorrhea, moist mucous membranes NECK: Supple. CHEST: No labored breathing or respiratory distress SKIN: Warm, dry, no rash. Course Vital Signs Vital signs: Vital Signs Temperature 36.7 C 05/22/24 11:43 Pulse Rate 72 05/22/24 11:43 Respiratory Rate 15 05/22/24 11:43 Blood Pressure 145/79 H 05/22/24 11:43 Pulse Oximetry 100 05/22/24 11:43 Oxygen Delivery Room Air 05/22/24 11:43 Temperature 36.7 C 05/22/24 11:43 Pulse Rate 72 05/22/24 11:43 Respiratory Rate 15 05/22/24 11:43 Blood Pressure 145/79 H 05/22/24 11:43 Pulse Oximetry 100 05/22/24 11:43 Oxygen Delivery Room Air 05/22/24 12:23 MDM - URI/Sore Throat MDM Narrative Medical decision making narrative: 28-year-old female presenting with upper respiratory symptoms including rhinorrhea and exposure to COVID. Patient is afebrile, normal vital signs with hypoxia tachycardia. Otherwise well-appearing. COVID flu and RSV swabs were obtained and negative. Patient was encouraged take egfj-sdh-rnhwofc medications or pseudoephedrine for her symptoms. She will follow-up with regular doctor. Medical Records Attestation: I reviewed the patient's medical records. Lab Data Attestation: I reviewed the patient's lab results. Labs: Lab Results 05/22/24 Range/Units 11:47 Influenza A (RT-PCR) Negative (Negative) Influenza B (RT-PCR) Negative (Negative) RSV (RT-PCR) Negative (Negative) SARS-CoV-2 RNA (RT-PCR) Negative (Negative) Discharge Plan Discharge Clinical Impression: Sinus drainage, URI (upper respiratory infection) Patient Disposition: Home, Self-Care Condition: Stable Instructions: Antibiotic Form, Rhinosinusitis (ED) Additional Instructions: You tested negative for COVID, flu, RSV. Given your nasal drainage you likely have a common cold or rhino sinusitis. Txon-bwy-mwshhre medications that mattress symptoms would be appropriate and if you have any persistent symptoms would recommend getting pseudoephedrine behind the counter to help clear your symptoms. Follow-up with regular doctor. Patient Language: Japanese Prescriptions: No Action dicyclomine 20 mg tablet 20 mg PO TID PRN (Reason: abdominal pain) Qty: 14 0RF ondansetron 4 mg tablet,disintegrating 4 mg PO Q8H PRN (Reason: nausea and vomiting) Qty: 10 0RF Follow-up/Referrals: PHYSICIAN,SHAKER REPAIRER [Primary Care Provider] - Time of Disposition: 12:40
== END 2024-05-22 13:04 | disposition home or self-care (01) ==
PROVIDERS: Emergency Medicine; Emergency Provider Student in an Organized Health Care Education/Training Program
DX: J06.9 Acute upper respiratory infection, unspecified (principal); Z20.822 Contact with and (suspected) exposure to COVID-19
CPT/HCPCS: 87637; 99283

== ENCOUNTER 2024-11-27 08:55 | Emergency (ER) | payer OTHER, SELFPAY ==
[2024-11-27] VITALS (7 sets, daily range): BP systolic 92–101; BP diastolic 51–69; PULSE 73–91; RESP 16; TEMP 37.1; O2SAT 98–100
--- OUTSIDE RECORDS SUMMARY | 2024-11-27 08:58 | XMS_ITS | Encounter Summary ---
Author Organization [facility] Address [address] [place] [address] Phone Care Team Providers Care Caseworker Intake Name Role Phone Provider, None Primary Care Provider Unavailabl e Encounter Details Date Type Department Care Team (Late st Contact Info) Description 05/06/2021 Lab Requisition [facility] [address] [place] [address] Jania Kyle, FIRE EQUIPMENT REPAIRER INSPECTOR, TIN TIE MACHINE OPERATOR AUTOMATIC [address] [place] [address] Encounter for pre-employment examination Social History Tobacco Use Types Packs/Day Years Used Date Smoking Tobacco: Never Assessed Comments Unknown Sex and Gender Information Value Date Recorded Sex Assigned at Not on file Legal Sex Female 8:18 AM OTC CLERK Gender Identity Not on file Sexual Orientation Not on file COVID-19 Exposure Response Date Recorded In the last month, have you been in contact with someone who was confirmed or suspected to have Coronavirus / COVID-19? Yes 05/06/2021 1:09 PM OTC CLERK documented as of this encounter Plan of Treatment Not on file documented as of this encounter Procedures Procedure Name Priority Date/Time Associated Diagnosis Comments QUANTIFERON-TB GOLD PLUS Routine 05/06/2021 2:22 PM OTC CLERK Encounter for pre-employment examination MMRV PANEL Routine 05/06/2021 2:22 PM OTC CLERK Encounter for pre-employment examination MUMPS IGG Routine 05/06/2021 2:22 PM OTC CLERK Encounter for pre-employment examination HERPES ZOSTER (VARICELLA) IGG Routine 05/06/2021 2:22 PM OTC CLERK Encounter for pre-employment examination RUBEOLA (MEASLES) IGG Routine 05/06/2021 2:22 PM OTC CLERK Encounter for pre-employment examination RUBELLA IMMUNITY IGG Routine 05/06/2021 2:22 PM OTC CLERK Encounter for pre-employment examination HEPATITIS B SURFACE ANTIBODY (HBSAB) Routine 05/06/2021 2:22 PM OTC CLERK Encounter for pre-employment examination documented in this encounter Results * (ABNORMAL) HERPES ZOSTER (VARICELLA) IGG (05/06/2021 2:22 PM OTC CLERK) VARICELLA ZOSTER IGG 0.3(L) >=1.1 AI 05/06/2021 10:30 PM OTC CLERK [facility] Blood No Phlebotomy Charged / Unknown 05/06/2021 2:22 PM OTC CLERK 05/06/2021 5:04 PM OTC CLERK Narrative [facility] - 05/06/2021 10:30 PM OTC CLERK <= 0.8 Negative. No detectable VZV IgG antibody. 0.9 - 1.0 Equivocal >=1.1 Positive Antibody testing was performed by multiplex flow immunoassay on the [employer] platform. us Jania Kyle FIRE EQUIPMENT REPAIRER INSPECTOR, TIN TIE MACHINE OPERATOR AUTOMATIC IMMUNOLOGY ORDERABL ES Final Result Performing Organization Address City/State/[facility] Co de Phone Number [facility] [address] [place] [address], * RUBEOLA (MEASLES) IGG (05/06/2021 2:22 PM OTC CLERK) MEASLES AB IGG 4.1 >=1.1 AI 05/06/2021 10:30 PM OTC CLERK [facility] Blood No Phlebotomy Charged / Unknown 05/06/2021 2:22 PM OTC CLERK 05/06/2021 5:04 PM OTC CLERK Narrative [facility] - 05/06/2021 10:30 PM OTC CLERK <= 0.8 Negative. No detectable Measles IgG antibody. 0.9 - 1.0 Equivocal >=1.1 Positive Antibody testing was performed by multiplex flow immunoassay on the [employer] platform. us Jania Shirlene Kyle FIRE EQUIPMENT REPAIRER INSPECTOR, TIN TIE MACHINE OPERATOR AUTOMATIC IMMUNOLOGY ORDERABL ES Final Result Performing Organization Address City/[facility]/ZIP Co de Phone Number [facility] [address] [place] [address], [place] * RUBELLA IMMUNITY IGG (05/06/2021 2:22 PM OTC CLERK) RUBELLA IMMUNITY Immune Immune, Invalid 05/06/2021 10:30 PM OTC CLERK [facility] Blood No Phlebotomy Charged / Unknown 05/06/2021 2:22 PM OTC CLERK 05/06/2021 5:04 PM OTC CLERK Narrative [facility] - 05/06/2021 10:30 PM OTC CLERK Antibody testing was performed by multiplex flow immunoassay on the [employer] platform. us Jania Shirlene Kyle FIRE EQUIPMENT REPAIRER INSPECTOR, TIN TIE MACHINE OPERATOR AUTOMATIC CHEMISTRY ORDERABLE S Final Result Performing Organization Address [facility] Co de Phone Number [facility] [address] [place] [address], [place] * MUMPS IGG (05/06/2021 2:22 PM OTC CLERK) Mumps Ab IgG 2.0 >=1.1 AI 05/06/2021 10:30 PM OTC CLERK [facility] Blood No Phlebotomy Charged / Unknown 05/06/2021 2:22 PM OTC CLERK 05/06/2021 5:04 PM OTC CLERK Narrative [facility] - 05/06/2021 10:30 PM OTC CLERK <= 0.8 Negative. No detectable Mumps IgG antibody. 0.9 - 1.0 Equivocal >=1.1 Positive Antibody testing was performed by multiplex flow immunoassay on the [employer] platform. us Jania Shirlene Behrends FIRE EQUIPMENT REPAIRER INSPECTOR, TIN TIE MACHINE OPERATOR AUTOMATIC IMMUNOLOGY ORDERABL ES Final Result Performing Organization Address City/[facility]/ZIP Co de Phone Number [facility] [address] [place] [address], * QUANTIFERON-TB GOLD PLUS (05/06/2021 2:22 PM OTC CLERK) NIL CONTROL 0.04 <8.01 IU/mL 05/08/2021 12:54 PM OTC CLERK [facility] TB ANTIGEN 1 0.04 <0.35 IU/mL 05/08/2021 12:54 PM OTC CLERK [facility] TB ANTIGEN 2 0.01 <0.35 IU/mL 05/08/2021 12:54 PM OTC CLERK [facility] MITOGEN CONTROL >10.00 >0.49 IU/mL 05/08/19 12:54 PM OTC CLERK [facility] INTEPRETATION TB NEGATIVE NEGATIVE, NEGATIVE (TB antigen response less than 25% of internal negative control value) 05/08/2021 12:54 PM OTC CLERK [facility] Comment:No immune response t o Mycobacterium tuberculosis antigens was noted. M. tuberculosis infection unlikely. Blood No Phlebotomy Charged / Unknown 05/06/2021 2:22 PM OTC CLERK 05/07/2021 6:17 AM OTC CLERK Narrative [facility] - 05/08/2021 12:54 PM OTC CLERK A POSITIVE QUANTIFERON-TB GOLD PLUS RESULT SHOULD [...] years 3. women us Jania Kyle APRN, TIN TIE MACHINE OPERATOR AUTOMATIC IMMUNOLOGY ORDERABL ES Final Result Performing Organization Address [facility] Co de Phone Number [facility] [address] [place] [address], [place] * HEPATITIS B SURFACE ANTIBODY (HBSAB) (05/06/2021 2:22 PM OTC CLERK) HEPATITIS B SURFACE ANTIBODY <8.00 mIU/mL [facility] ARCH [id number] B 05/06/2021 10:24 PM OTC CLERK [facility] Comment:Individual is consid ered not immune to HBV infection. Blood No Phlebotomy Charged / Unknown 05/06/2021 2:22 PM OTC CLERK 05/06/2021 5:02 PM OTC CLERK us Jania Kyle FIRE EQUIPMENT REPAIRER INSPECTOR, TIN TIE MACHINE OPERATOR AUTOMATIC CHEMISTRY ORDERABLE S Final Result Performing Organization Address [facility] Co de Phone Number [facility] [address] [facility] [place] [address], [place] documented in this encounter Visit Diagnoses Diagnosis Encounter for pre-employment examination Health examination of defined subpopulation documented in this encounter Care Teams Caseworker Intake Relationship Specialty Start Date End Date Provider, None CHON PCP - General 05/06/21 documented as of this encounter
--- OUTSIDE RECORDS SUMMARY | 2024-11-27 08:58 | XMS_ITS | Clinical Summary ---
Author Organization [facility] Address [address] [place] [address] Care Team Providers Care Gas Appliance Servicer Name Role Phone No, Physician Primary Care Provider Allergies No known active allergies Medications acetaminophen 500 mg capsule Take 2 capsules (1,000 mg total) by mouth every 6 (six) hours as needed for pain 60 tablet 4 Active cyclobenzaprine (FLEXERIL) 10 mg tablet Take 1 tablet (10 mg total) by mouth 3 (three) times a day as needed for muscle spasms 30 tablet 4 Active docusate sodium (COLACE) 100 mg capsuleIndicati ons:constipatio n,Stool Softener Take 1 capsule (100 mg total) by mouth 2 (two) times a day 60 capsule 4 Active polyethylene glycol (MIRALAX) 17 gram/dose bulk powderIndicatio ns:constipation Take 17 g by mouth daily 510 g 4 Active PNV with cknijoi-nile-LN 27 mg iron- 1 mg tabletIndicatio ns:Vitamin Deficiency Prevention Take 1 tablet by mouth daily 30 tablet 5 10/28/19 26 Active PNV with refzpwf-rpqa-HB 27 mg iron- 1 mg tabletIndicatio ns:Vitamin Deficiency Prevention Take 1 tablet by mouth daily 30 tablet 4 11/02/19 25 Discontinu ed(Therapy completed) ibuprofen (ADVIL,MOTRIN) 600 mg tabletIndicatio ns:Cramps Take 1 tablet (600 mg total) by mouth every 6 (six) hours as needed for pain 90 tablet 4 11/15/19 25 Discontinu ed(Therapy completed) Active Problems Problem Noted Date Diagnosed Date Encounter for supervision of normal in second trimester 11/17/2024 Overview (11/17/2024): 1st Trimester: [] Dating Criteria: [] Labs: Rh *, Ab *, CBC *, Rubella *, VZV *, HIV *, RPR *, HepBSAg *, Hep C Ab * [] GC/CT/Trich: [] UCx: [] vitamins [] Genetic Screening: [x] CF/SMA carrier screening: negative in G2 (12/13/22) [x] Hgb electrophoresis: nml (01/02/23) [x] Pap: NILM 12/02/22 [] EPDS: PNBHS referral (if indicated) [] ASA at 12 weeks (if indicated) [] DM screening: HgbA1c * (<5.7: no further test until 2T screen, 5.7-6.5: obtain 2h GTT, >6.5: refer to CDP) [] Feeding Preferences: benefits of discussed with patient at RN IOB 2nd Trimester: [] Anatomy ultrasound: [] CBC: [] 1hr GTT (24-28wks): [] Flu Shot (Sep-Mar): [] Tdap (27-36wks): [] Rhogam (if Rh neg): [] Childbirth classes discussed [] education (colostrum, expected breast changes, plan for RTW) and breast pump ordered [] Second trimester education packet 3rd Trimester: [] CBC/HIV/RPR/T&S: [] GBS: [] GC/CT/Trich (if indicated): [] RSV vaccine [] Final discussion (S2S, Baby Friendly, LC [...] education: completed in all 3 trimesters [] [employer] Supervisor: [] Car seat discussed [] PP depression counseling History of delivery 03/27/2023 Overview (11/14/2024): We reviewed the patient's history, which is notable for 1 prior lower transverse sections. CS in G1 for NRFS (FGR) remote from delivery (3 cm). She is s/p successful . We discussed that she is a candidate for a trial of labor after section (TOLAC). We discussed the risks and benefits of TOLAC. In patients who achieve a vaginal delivery, benefits include avoiding major abdominal surgery and lower risk of hemorrhage, thromboembolism, infection. In addition there is a shorter recovery time and in patients who are considering future pregnancies may decrease the risk of maternal consequences related to multiple deliveries (hysterectomy, bowel/bladder injury, transfusion, infection, and abnormal placentation. Uterine rupture and dehiscence associated with TOLAC results in the most significant increase in the likelihood of additional maternal and morbidity. As the patient has a history of one prior low-transverse section, we quoted her risk as approximately 0.5-0.9%. As this patient has a history of an unknown incision that cannot be confirmed, we discussed that in large case series reported rates of success and uterine rupture are similar to those with documented low-transverse uterine incisions, and we believe that this incision was most likely low-transverse. At this time, the patient is interested in . success calculator 91.5%. Plan: [x] Planned delivery [x] TOLAC counseling performed 11/14/2024 History of non-ST elevation myocardial infarctio n (NSTEMI) 12/03/2022 Overview (11/17/2024): - NSTEMI in G1 in setting of preeclampsia (which is an independent risk factor for [place] in and per literature review) - Followed with maternal cardiology in G2 - Asymptomatic at IOB, EOB visits - Most recent cardiac cath (2020): elevated filling pressures, no evidence of CAD or SCAD - TTE 03/25/23: SUMMARY: Normal LV systolic [...] BNP today - Maternal cardiology recs as below: Maternal Risk Assessment: - CARPREG II: Score: [...] of such data, cannabis use is discouraged. Hx of preeclampsia, prior , currently p regnant 12/02/2022 Overview (11/17/2024): History: - H/o preeclampsia in G1 complicated by NSTEMI We reviewed the patient's history of hypertensive disorder of . We discussed that history of preeclampsia is a risk factor for development of preeclampsia in the current . The risk may be as high as 40% for patients with preeclampsia diagnosed at <28. There are no current tests to predict the development of preeclampsia in this . We recommend initiation of low-dose aspirin for prevention of preeclampsia. Plan [] Baseline CBC, CMP, UPC [] Low dose aspirin daily starting at 12 weeks gestation until delivery Tobacco use 04/09/2020 Overview (11/17/2024): I have reviewing with the patient today [...] have extensively discussed this with the patient, recognizing that this addiction is rather hard to quit. Depression 04/09/2020 Overview (11/17/2024): History: Counseling 11/17/2024: Depression affects 5-6% of the population and is considered to have multifactorial inheritance, with genetic and environmental causes. Generally, the risk of worsening depression in is dependent on control prior to . Regular follow-up with a mental health provider is recommended throughout and . Management of depression during focuses on optimizing maternal well being, as untreated or suboptimally treated depression has been associated with increased risks of , preeclampsia, growth abnormalities, and maternal self-harm. We reviewed that worsening depression may occur during or in the period, and in rare cases can lead to psychosis and/or suicide ideation. Current regimen: Plan: [] Continue above medication regimen [] Consider baseline EPDS [] Monitor mood throughout and period Family History of Congenital Heart Disease 04/04 Overview (11/17/2024): - Pt w/ sister w/ Tetrology of Fallot - Patient and FOB without hx of CHD - Several cousins on maternal side w/ CHD (unknown diagnosis) - S/p low risk counseling at B, declined genetic counseling Plan: - Cont exp management Estimated Date of Delivery Comme nts Yes 05/06/2025 Based on last me nstrual period of 07/30/2024 Resolved Problems Problem Noted Date Diagnosed Date Resolved Date care following vaginal delivery 05/22/2023 11/17/2024 Overview (05/25/2023): # ID: Afebrile. No signs/symptoms [...] # Disposition: Follow up task sent to [facility] scheduling pool. Desires dc home today. #H/o tobacco use: Nicotine patch prn HROB: Maternal anemia in pre gnancy, antepartum, first trimester 12/05/2022 11/17/2024 Overview (02/22/2023): - Hgb on IOB labs 9.7 with MCV 83 fL - Hemoglobin electrophoresis with normal pattern for age - Ferritin 30 - Repeat Hgb 11.9 after 4 weeks - S/p counseling Plan: - CBC qTrimester - continue iron supplementation with PNV Elevated troponin 10/03/2020 12/29/2022 Overview (10/04/2020): Added automatically from request for surgery [id number] HROB: Maternal varicella, non-immune 07/26/2020 11/17/2024 Overview (02/09/2023): - Varicella NI Plan: - For varivax HROB: Encounter for supervis ion of normal in first trimester 03/23/2020 11/17/2024 Overview (11/14/2024): 1st Trimester: [x] Dating Criteria: L=2 [x] [...] education: completed in all 3 trimesters [x] [employer] Supervisor: TBD [] Car seat discussed [] PP [...] of belt. Discussed tylenol PRN/heat packs/warm baths. Viral syndrome 08/05/2018 04/04/2020 Fever 08/05/2018 04/04/2020 Encounters Date Type Department Care Team Description 11/01/2024 Orders Only [facility] [address] [place] [address] Sandra Bro MD 11/01/2024 Telephone [facility] Clinic [address] [place] [address] Outpatient Health 3rd Floor [address] [place] [address] Scarlett Kearney RN Appointment 10/28/2024 Telephone [facility]etrics [facility]necology Clinic [address] [place] [address] Outpatient Health 3rd Floor [address] [place] [address] Smita Uribe from Last 3 Months Immunizations Immunization Administration Dates Next Due DTaP 11/08/2001,01/25/1998 Hep [...] drink = 0.6 oz pur e alcohol) [facility] Utilities Answer Date Recorded In the past 12 months has [employer], [employer] [place], oil, or water [employer] threatened to shut off services in your home? No 05/24/2023 Social Connection and Isolation Panel Answer Date Recorded In a typical week, how many times do you talk on the phone with family, friends, or neighbors? More than three times a week 05/24/2023 How often do you get togethe r with friends or relatives? More than three times a week 05/24/2023 How often do you attend chur or adventist services? More than 4 times per year 05/24/2023 Do you belong to any clubs o r organizations such as quaker groups, unions, fraternal or athletic groups, or [...] staff should administer the PHQ-9) 0 05/22/2023 [facility] of Occupat ional [facility] - Occupational Stress Questionnaire Answer [...] place to sleep or slept in a alf (including now)? No 05/24/2023 [place] Depression Scale Answer Date Recorded [place] Depression Scale Total 1 02/24/2023 The thought of harming myself has occurred to me . Never 02/24/2023 Personal Safety Answer Date Recorded Have you ever been in or are you currently in a harmful physical or emotional relationship or is someone making you feel afraid or unsafe? Denies 05/22/2023 Estimated Date of Delivery Comme nts Yes 05/06/2025 Based on last me nstrual period of 07/30/2024 Sex and Gender Information Value Date Recorded Sex Assigned at Not on file Legal Sex Female 8:40 PM TAR WORKER Gender Identity Female 12/02/2022 6:55 PM CDT Sexual Orientation Straight 12/02/2022 6: 55 PM CDT Obstetrics History Para Term AB IAB SAB Ectopic Multiple Livin g Live Births 3 2 2 0 2 2 Date Outcome GA Total Labor Labor/2nd/3rd Weight Sex Type Anes PTL Raquel A1 A5 Name Clin 2020 Term 40w 1d 0h 02m 0h 02m 3.35 kg (7 lb 6.2 oz) F CS-LT ranv Epidur al N Livin g 8 9 MONIKA SHI, Chas howard MD Complications: Intolera nce Delivery Location:[facility] ([facility]) 2023 Term 39w 1d 0h 31m 0h 25m/0h 06m 3.09 kg (6 lb 13 oz) F Epidur al N Livin g 8 9 Zackary Valles MD Delivery Location:[facility] ([facility]) Current Summary Episode Dates Number of Fetuses Estimated Date of Delivery 11/14/2024 - Present (11/27/2024) 05/06/2025 (set by Sandra Bro MD on 11/14/2024 based on Last Menstrual Period on 07/30/2024) Dating Summary Based On ESTUARDO GA Diff Last Menstrual Period on 07/30/2024 05/06/2025 Working Last Filed Vital Signs Vital Sign Reading Time Taken Comments Blood Pressure 99/55 05/25/2023 7:20 AM TAR WORKER Pulse 60 05/25/2023 7:20 AM TAR WORKER Temperature 36.6 C (97.9 F) 05/25/2023 7:20 AM TAR WORKER Respiratory Rate 18 05/25/2023 7:20 AM TAR WORKER Oxygen Saturation 95% 05/25/2023 7:20 AM TAR WORKER Inhaled Oxygen Concentration - - Weight 96.3 kg (212 lb 4.9 oz) 05/22/2023 9:40 P M TAR WORKER Height 167.6 cm (5' 6) 06/11/2023 8:10 AM TAR WORKER Body Mass Index 34.27 05/22/2023 9:40 PM TAR WORKER Plan of Treatment Health Maintenance Due Date Last Done Comments Hepatitis B Screening 2014 Regular Well Visit/Exam 18-64 2014 HPV Vaccines (1 - 3-dose SCDM series) 07/09/2023 Cervical Cancer Screening 12/03/2023 12/02/2022 Covid-19 Vaccine ( season) 2023 03/21/2021 Depression Screening 05/22/2024 05/22/2023, 05/22/2023, 02/24/2023 Influenza Vaccine (#1) 2024 , 03/18/2021, 03/06/2020, Additional history exists DTaP/Tdap/Td Vaccine (7 - Td or Tdap) 03/27/2033 03/27/2023, 07/05/2020, 03/19/2017, Additional history exists Hepatitis C Screening Completed 12/02/2022 Varicella Vaccines Completed 05/25/2023, 0 01/08/2009, 1995 Pneumococcal vaccine <65 Aged Out No longer [...] CDT) Hep C Ab Nonreactive Nonreactive [facility] Comment:Antibodies to HCV no t detected. Does NOT exclude the possibility of recent exposure to HCV. Current interpretive data was last revised on 21 Blood 12/02/2022 3:32 PM CDT 12/02/2022 4:07 PM CDT us Shruthi Keys MD LAB MICROBIOLOGY - GENERAL ORDERABLES Final Result [facility] Department of [place] [address] * Pap with reflex to High Risk HPV and Genotyping (Cytology Component) (12/02/2022 1:27 PM CDT) Thin prep (Pap test) 12/02/2022 1:27 PM CDT 12/02/2022 5:37 PM CDT Narrative PATHOLOGY [facility] - 12/04/2022 2:41 PM CDT EPIC results best viewed via link to PDF [facility] Lakisha Crook [facility] [place] [address] Note to Patients: This report may contain [...] the details. CYTOPATHOLOGY REPORT FINAL Patient Name: STEVE SHI Gender: F : 1995 (Age: 27) Address: [address] [place], [place] [phone] [facility] #: [id number] Service: JAVA SWING DEVELOPER Location: Patient Type: [facility] SPECIMEN Taken: 12/02/2022 Received: 12/02/2022 Accessioned: 12/03/2022 Reported: 12/04/2022 Physician(s): Shruthi Keys M.D. FINAL INTERPRETATION SOURCE OF SPECIMEN Liquid based Thin Prep pap with Reflex HPV: STATEMENT OF ADEQUACY - Satisfactory for evaluation - Endocervical cells/transformation zone sample present GENERAL CATEGORIZATION: - Negative for squamous intraepithelial lesion or malignancy INTERPRETATION: - Fungal organisms morphologically consistent with ericka species ml/12/04/2022 14:[address] (ASCP) [...] clinical information and biopsy results as indicated. [facility] Clinical Laboratory Improvement Amendments (CLIA) mandate that cytologic and histologic results be correlated for laboratory manufacturing quality technician & improvement standards. FOR ALL HIGH-GRADE CASES [...] determined by the Surgical Pathology Department at [facility] as part of an ongoing water quality manager program and in compliance with [...] determined by the Surgical Pathology Department of [facility]. It has not been cleared or approved by the U. S. Food and Drug Administration. Shruthi Keys MD LAB CYTOLOGY ORDERA BLES Final Result PATHOLOGY [facility] 3rd Floor [place], [place] [phone] from Last 3 Months or Most Recently Relevant to Health Maintenance Insurance [facility] Advance Directives For more information, please contact: [phone] * Full Code (Latest Code Status on [...] in case of cardiopulmonary arrest Care Teams Gas Appliance Servicer Relationship Specialty Start Date End Date No, Physician PCP - General 11/01/16
--- OUTSIDE RECORDS SUMMARY | 2024-11-27 08:58 | XMS_ITS | Clinical Summary ---
Author Organization [facility] Address [address] [place] [phone] Phone Care Team Providers Care Electrical Tech/Project Manager Name Role Phone Provider, None Primary Care [...] on file Legal Sex Female 8:18 AM FEATHER TRIMMER Gender Identity Not on file Sexual Orientation [...] 9:07 PM CDT Height 165.1 cm (5' 5) 10/12/2022 9:07 PM CDT Body Mass Index 30.62 10/12/2022 9:07 PM CDT Plan of Treatment Health Maintenance Due Date Last Done Comments Hepatitis C Virus (HCV) Screening 1995 TdaP Immunization 1995 Hepatitis B Immunization (1 of 3 - 19+ 3-dose series) 07/09/2015 Human Papillomavirus (HPV) Immunization (1 - 3-dose SCDM series) 07/09/2023 SARS-COV-2 Immunization ( season) 2023 04/18/2021, 03/21/2021 Influenza Immunization (#1) 12/12/202409/2020, 03/06/2020 Respiratory Syncytial Virus (RSV) Immunization (Adult) (1 [...] Date of Phone Billing Address Institutional Other [address] [place] [address] Care Teams Electrical Tech/Project Manager Relationship Specialty Start Date End Date Provider, None [place] PCP - General 05/06/21
--- OUTSIDE RECORDS SUMMARY | 2024-11-27 08:58 | XMS_ITS | Clinical Summary ---
Author Organization [facility] Address [address] [place] [address] Care Team Providers Care Photo Producer Name Role Phone None, Physician Primary Care Provider Unavailabl e Source Comments [facility],non-owned Affiliates and Associated Physician Practices is amultiple site organization consisting of ambulatory clinics and hospital sitesin [place], [place], [place] and [place]. This disclosure is being madepursuant to the Care Everywhere program and may not contain all information available regarding this patient. Last updated 18.[facility] Allergies No known active allergies Medications * Be aware that medications may not be up to date on this document. Alwaysverify current medications with the patient. No known medications Encounters Date Type Department Care Team Description 11/17/2024 Travel 08/30/2024 3:38 PM CDT - 08/30/2024 4:53 PM CDT Emergency ER at [address] [address] Food contamination Discharge Disposition: Home or Self Care 08/30/2024 Travel from Last 3 Months Social History Tobacco Use Types Packs/Day Years Used Date Smoking Tobacco: Never Smokeless Tobacco: Never Tobacco Cessation:Counseling Given: Not Answered Alcohol Use Standard Drinks/Week Comments Never 0 (1 standard drink = 0.6 oz pur e alcohol) AUDIT-C Answer Date Recorded Q1: How often do you have a drink containing alcohol? Never 08/30/2024 Q2: How many drinks containi ng alcohol do you have on a typical day when you are drinking? Patient does not drink Q3: How often do you have si x or more drinks on one occasion? Never 08/30/2024 Comments Unknown Sex and Gender Information Value Date Recorded Sex Assigned at Not on file Legal Sex Female 6:08 AM PLEATER HAND Gender Identity Not on file Sexual Orientation Not on file Last Filed Vital Signs Vital Sign Reading Time Taken Comments Blood Pressure 116/70 08/30/2024 3:31 PM CDT Pulse 76 08/30/2024 3:31 PM CDT Temperature 37.1 C (98.7 F) 08/30/2024 3:31 PM CDT Respiratory Rate 18 08/30/2024 3:31 PM CDT Oxygen Saturation 99% 08/30/2024 3:31 PM CDT Inhaled Oxygen Concentration - - Weight 66.7 kg (147 lb 0.8 oz) 08/30/2024 3:31 P M CDT Height 162.6 cm (5' 4) 08/19/2013 2:29 PM CDT Body Mass Index - - Plan of Treatment Upcoming Encounters Date Type Department Care Team (Late st Contact Info) Description 02/22/2025 3:20 PM PLEATER HAND Office Visit [facility] - Dermatology [address] [place] [address], [facility] [place] [address] Leah Robledo MD [address] [place] [address] 3 DE[place] [phone] Health Maintenance Due Date Last Done Comments HIV SCREENING 07/09/2011 HEPATITIS C SCREENING 07/04/2014 DTAP/TDAP/TD VACCINES (1 - Tdap) 07/09/2015 HEPATITIS B VACCINE (1 of 3 - 19+ 3-dose series) 07/09/2015 PAP SMEAR 2017 HPV VACCINE (1 - 3-dose SCDM series) 07/09/2023 COVID-19 VACCINE (3 - season) 2023 04/18/2021, 03/21/2021 DEPRESSION SCREENING 04/13/2024 INFLUENZA VACCINE (#1) 2024 3, 03/18/2021, 03/06/2020, Additional history exists ZOSTER VACCINE (1 of 2) 2046 HIB VACCINE Aged Out No longer eligi ble based on patient's age to complete this topic MENINGOCOCCAL (Group B) VACCINE SHARED DECISION-MAKING Aged Out No longer eligible based on patient's age to complete this topic MENINGOCOCCAL GROUPS A/C/Y/W VACCINE Aged Out No longer eligible based on patient's age to complete this topic PNEUMOCOCCAL VACCINE Aged Out No long er eligible based on patient's age to complete this topic Insurance [facility] [employer] Libertarian Liability [employer]arian Liability Care Teams Photo Producer Relationship Specialty Start Date End Date None, Physician PCP - General 08/30/24
--- NOTE | 2024-11-27 09:21 | ED_ITS ---
HPI - URI/Sore Throat General Chief Complaint: Upper Respiratory Infection Stated Complaint: I caught a cold from my kid's Dad Time Seen by Provider: 11/27/24 09:20 Source: patient Mode of arrival: ambulatory Limitations: no limitations History of Present Illness HPI Narrative: 29 years old female came to the ED complaining of sore throat, feeling cold, sore throat, headache, postnasal discharge with the last 2 days. Patient is 17 weeks . Denies any fever or chills Related Data Allergies Allergy/AdvReac Type Severity Reaction Status Date / Time No Known Allergies Allergy Verified 11/27/24 10:10 Review of Systems 2 Review of Systems: All systems reviewed & are unremarkable except as noted in HPI and below PMFSH Social History Social History Substance use type: marijuana Exam 2 Narrative: General appearance: Well-developed, well-nourished Skin: Normal color Head: Normocephalic, nontraumatic Eyes: Clear conjunctiva ENT: Oropharyngeal erythema, no discharge Neck: Supple, nontender Chest and respiratory: Airway patent, no respiratory distress, no accessory muscle use Heart: Regular rate/rhythm Abdomen: Soft, nontender, no organomegaly, quiet bowel sounds Vascular: Normal peripheral pulses, normal capillary refill. 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 is normal as tested, no gross motor deficit Course Consultations Consultation #1: dr العلي It is okay with Paxlovid for Date: 11/27/24 Time: 11:21 Vital Signs Vital signs: Vital Signs Pulse Rate 85 11/27/24 09:30 Blood Pressure 92/58 L 11/27/24 09:30 Pulse Oximetry 100 11/27/24 09:30 Temperature 37.1 C 11/27/24 09:39 Pulse Rate 82 11/27/24 11:00 Respiratory Rate 16 11/27/24 11:00 Blood Pressure 100/59 L 11/27/24 11:00 Pulse Oximetry 100 11/27/24 11:00 Oxygen Delivery Room Air 11/27/24 10:11 MDM - URI/Sore Throat MDM Narrative Medical decision making narrative: Patient tested positive for COVID Discharged on Paxlovid Lab Data 11/27/24 10:10 11/27/24 10:10 Labs: Lab Results 11/27/24 Range/Units 10:10 WBC 5.3 (4.5-10.0) K/mm3 RBC 4.02 L (4.2-5.4) M/mm3 Hgb 10.9 L (12.0-15.0) g/dL Hct 33.8 L (37.0-47.0) % MCV 84.1 (80-100) fl MCH 27.1 (26-34) pg MCHC 32.2 (32-36) g/dl RDW 14.6 H (11.5-14.5) % Plt Count 223 (150-375) k/mm3 MPV 10.0 (7.4-10.4) fl Immature Gran % (Auto) 0.4 (0-0.5) % Neut % (Auto) 62.2 (45.5-73.1) % Lymph % (Auto) 17.2 L (18.3-44.2) % [place] % (Auto) 20.0 H (2.6-8.5) % Eos % (Auto) 0.0 (0-4.4) % Baso % (Auto) 0.2 (0.2-1.2) % Lymph # (Auto) 0.91 (0.9-3.2) K/mm3 [place] # (Auto) 1.1 H (0.1-0.6) K/mm3 Eos # (Auto) 0.0 (0-0.3) K/mm3 Baso # (Auto) 0.0 (0.0-0.1) K/mm3 Abs Immat Gran (auto) 0.02 (0.00-0.031) K/mm3 Absolute Neuts (auto) 3.3 (1.3-6.7) K/mm3 Absolute Nucleated RBC 0.000 (0.0-0.012) K/mm3 Band Neutrophils % Not Reportable Nucleated RBC % 0.0 (0.0-0.2) % Atypical Lymphocytes Present Platelet Estimate Adequate (Adequate) Schistocytes None seen Sodium 133 L (137-145) mmol/L Potassium 3.7 (3.4-5.0) mmol/L Chloride 105 (98-107) mmol/L Carbon Dioxide 24 (22-30) mmol/L Anion Gap 4 (4-12) mmol/L BUN 5 L D (7-17) mg/dL Creatinine 0.47 L (0.7-1.0) mg/dL Estim Creat Clear Calc 147 ml/min Estimated GFR > 60 (59 - ) Glucose 79 (65-110) mg/dL Calcium 8.5 (8.4-10.2) mg/dL Total Bilirubin < 0.1 L (0.2-1.3) mg/dL AST 29 (14-36) U/L ALT 12 (6-35) U/L Alkaline Phosphatase 47 (38-126) U/L Total Protein 6.5 (6.3-8.2) g/dL Albumin 3.6 (3.5-5.1) g/dL Urine Color Yellow (Yellow) Urine Appearance Clear (Clear) Urine pH 7.0 (5.0-9.0) Ur Specific [place] 1.013 (1.001-1.035) Urine Protein Negative (Negative) mg/dL Urine Glucose (UA) Negative (Negative) mg/dL Urine Ketones 2+ H (Negative) mg/dL Ur Blood (Man) Negative (Negative) Urine Nitrate Negative (Negative) Urine Bilirubin Negative (Negative) Urine Urobilinogen 0.2 (<2.0) mg/dL Leukocyte Esterase Rfl Trace H (Negative) CONCHITA/UL Urine RBC 0-2 (0-2) /hpf Urine WBC 0-5 (0-3) /hpf Ur Squamous Epith Cells Few (Few) /hpf Urine Bacteria Rare /hpf Urine Casts 3-5 Influenza A (RT-PCR) Negative (Negative) Influenza B (RT-PCR) Negative (Negative) RSV (RT-PCR) Negative (Negative) SARS-CoV-2 RNA (RT-PCR) Positive A (Negative) Discharge Plan Discharge Clinical Impression: COVID-19 virus infection Patient Disposition: Home Condition: Stable Instructions: Droplet Precautions (ED), COVID-19 (Coronavirus Disease 2019) (ED), Social Distancing Guidelines for COVID-19 (ED) Additional Instructions: Return if symptoms are worsening , call your family physician for appointment, take Tylenol as as needed for aches and pain, continue home medications. Patient Language: Malian Prescriptions: New Paxlovid 300 mg (150 mg x 2)-100 mg tablets,dose pack See Rx Instructions PO .COMPLEX Qty: 30 0RF Rx Instructions: take TWO 150 mg tablets of nirmatrelvir with ONE 100 mg tablet of ritonavir twice daily for 5 days No Action dicyclomine 20 mg tablet 20 mg PO TID PRN (Reason: abdominal pain) Qty: 14 0RF ondansetron 4 mg tablet,disintegrating 4 mg PO Q8H PRN (Reason: nausea and vomiting) Qty: 10 0RF Follow-up/Referrals: PHYSICIAN,PATENT PROSECUTION PARALEGAL [Primary Care Provider] - Mannie العلي MD [Physician] - 12/01/24 Stand Alone Forms: Work/School Release IP
--- OUTSIDE RECORDS SUMMARY | 2024-11-27 09:29 | XMS_ITS | Clinical Summary ---
Author Organization [facility] Address [address] [place] [address] Care Team Providers Care Social Science Instructor Name Role Phone No, Physician Primary Care Provider [phone] Allergies No known active allergies Medications acetaminophen [...] daily 510 g 4 Active PNV with [id number] 27 mg iron- 1 mg tabletIndicatio ns:Vitamin Deficiency Prevention Take 1 tablet by mouth daily 30 tablet 5 10/28/19 26 Active PNV with [id number] 27 mg iron- 1 mg tabletIndicatio ns:Vitamin [...] education: completed in all 3 trimesters [] Drilling Superintendent: [] Car seat discussed [] PP depression [...] (which is an independent risk factor for DC in and per literature review) - Followed [...] # Disposition: Follow up task sent to [facility] scheduling pool. Desires dc home today. #H/o [...] (10/04/2020): Added automatically from request for surgery [id number] HROB: Maternal varicella, non-immune 07/26/2020 11/17/2024 Overview [...] education: completed in all 3 trimesters [x] Drilling Superintendent: TBD [] Car seat discussed [] PP [...] Department Care Team Description 11/01/2024 Orders Only [facility] [address] [place] [address] Sandra Bro MD 11/01/2024 Telephone [facility] [address] [place] [address] Outpatient Health 3rd Floor [address] [place] [address] Scarlett Kearney RN Appointment 10/28/2024 Telephone [facility] Clinic [address] [place] [address] Outpatient Health 3rd Floor [address] [place] [address] Smita Uribe from Last 3 [...] 0.6 oz pur e alcohol) [facility] Utilities Answer Date Recorded In the past 12 months has [employer], [employer], oil, or water [employer] threatened to shut off services in your [...] How often do you attend chur or mandaen services? More than 4 times per year 05/24/2023 Do you belong to any clubs o r organizations such as muslim groups, unions, fraternal or athletic groups, or [...] staff should administer the PHQ-9) 0 05/22/2023 [facility] Occupat ional [facility] - Occupational Stress Questionnaire Answer Date [...] place to sleep or slept in a detention (including now)? 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 Gender Identity Female 12/02/2022 6:55 PM [...] Chas howard MD Complications: Intolera nce Delivery Location:[facility] Main C ampus ([facility] 58LD) 2023 Term 39w 1d 0h 31m 0h 25m/0h 06m 3.09 kg (6 lb 13 oz) F Epidur al N Livin g 8 9 Zackary Valles MD Delivery Location:[facility] Main C ampus ([facility] 58LD) Current Summary Episode Dates Number of Fetuses Estimated Date of Delivery 11/14/2024 - Present (11/27/2024) 05/06/2025 (set by Sandra Bro MD on 11/14/2024 based on Last Menstrual Period on 07/30/2024) Dating Summary Based On ESTUARDO GA Diff Last Menstrual Period on 07/30/2024 05/06/2025 Working Last Filed Vital Signs Vital Sign Reading Time Taken Comments Blood Pressure 99/55 05/25/2023 7:20 AM GOLF CART REPAIRER Pulse 60 05/25/2023 7:20 AM GOLF CART REPAIRER Temperature 36.6 C (97.9 F) 05/25/2023 7:20 AM GOLF CART REPAIRER Respiratory Rate 18 05/25/2023 7:20 AM GOLF CART REPAIRER Oxygen Saturation 95% 05/25/2023 7:20 AM GOLF CART REPAIRER Inhaled Oxygen Concentration - - Weight 96.3 kg (212 lb 4.9 oz) 05/22/2023 9:40 P M GOLF CART REPAIRER Height 167.6 cm (5' 6) 06/11/2023 8:10 AM GOLF CART REPAIRER Body Mass Index 34.27 05/22/2023 9:40 PM GOLF CART REPAIRER Plan of Treatment Health Maintenance Due Date [...] CDT) Hep C Ab Nonreactive Nonreactive [facility] Comment:Antibodies to HCV no t detected. Does NOT exclude the possibility of recent exposure to HCV. Current interpretive data was last revised on 21 Blood 12/02/2022 3:32 PM CDT 12/02/2022 4:07 PM CDT us Shruthi Keys MD LAB MICROBIOLOGY - GENERAL ORDERABLES Final Result [facility] Department [place] [address] * Pap with reflex to High Risk HPV and Genotyping (Cytology Component) (12/02/2022 1:27 PM CDT) Thin prep (Pap test) 12/02/2022 1:27 PM CDT 12/02/2022 5:37 PM CDT Narrative PATHOLOGY [facility] - 12/04/2022 2:41 PM CDT EPIC results best viewed via link to PDF [facility] Lakisha Crook Laboratory of Surgical [place] [address] Note to Patients: This report may contain [...] Gender: F : 1995 (Age: 27) Address: [address] [place], [place] [id number] [facility] #: [id number] Service: MACHINE PLUG SHAPER Location: Patient Type: [facility] SPECIMEN Taken: 12/02/2022 Received: 12/02/2022 Accessioned: 12/03/2022 [...] clinical information and biopsy results as indicated. [facility] Clinical Laboratory Improvement Amendments (CLIA) mandate that cytologic and histologic results be correlated for laboratory water quality technician & improvement standards. FOR ALL [...] determined by the Surgical Pathology Department at [facility] as part of an ongoing water quality technician program and in compliance with [...] determined by the Surgical Pathology Department of [facility]. It has not been cleared or approved by the U. S. Food and Drug Administration. Shruthi Keys MD LAB CYTOLOGY ORDERA BLES Final Result [facility] 3rd Floor [place], [place] [phone] from Last 3 Months or Most Recently Relevant to Health Maintenance Insurance [facility] Advance Directives For more information, please contact: [phone] * Full Code (Latest Code Status on [...] in case of cardiopulmonary arrest Care Teams Social Science Instructor Relationship Specialty Start Date End Date No, Physician PCP - General 11/01/16
--- OUTSIDE RECORDS SUMMARY | 2024-11-27 09:29 | XMS_ITS | Encounter Summary ---
Author Organization [facility] Address [address] [place] [address] Phone Care Team Providers Care Wet Process Miller Name Role Phone Provider, None Primary Care Provider Unavailabl e Encounter Details Date Type Department Care Team (Late st Contact Info) Description 05/06/2021 Lab Requisition [facility] [address] [place] [address] Jania Kyle, HYDROELECTRIC PRODUCTION TECHNICIAN, PRESIDENTIAL HELICOPTER CREW CHIEF [address] [place] [address] Encounter for pre-employment examination Social History Tobacco Use Types Packs/Day Years Used Date Smoking Tobacco: Never Assessed Comments Unknown Sex and Gender Information Value Date Recorded Sex Assigned at Not on file Legal Sex Female 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 Yes 05/06/2021 1:09 PM HATCHERY EMPLOYEE documented as of this encounter Plan of Treatment Not on file documented as of this encounter Procedures Procedure Name Priority Date/Time Associated Diagnosis Comments QUANTIFERON-TB GOLD PLUS Routine 05/06/2021 2:22 PM HATCHERY EMPLOYEE Encounter for pre-employment examination MMRV PANEL Routine 05/06/2021 2:22 PM HATCHERY EMPLOYEE Encounter for pre-employment examination MUMPS IGG Routine 05/06/2021 2:22 PM HATCHERY EMPLOYEE Encounter for pre-employment examination HERPES ZOSTER (VARICELLA) IGG Routine 05/06/2021 2:22 PM HATCHERY EMPLOYEE Encounter for pre-employment examination RUBEOLA (MEASLES) IGG Routine 05/06/2021 2:22 PM HATCHERY EMPLOYEE Encounter for pre-employment examination RUBELLA IMMUNITY IGG Routine 05/06/2021 2:22 PM HATCHERY EMPLOYEE Encounter for pre-employment examination HEPATITIS B SURFACE ANTIBODY (HBSAB) Routine 05/06/2021 2:22 PM HATCHERY EMPLOYEE Encounter for pre-employment examination documented in this encounter Results * (ABNORMAL) HERPES ZOSTER (VARICELLA) IGG (05/06/2021 2:22 PM HATCHERY EMPLOYEE) VARICELLA ZOSTER IGG 0.3(L) >=1.1 AI 05/06/2021 10:30 PM HATCHERY EMPLOYEE [facility] Blood No Phlebotomy Charged / Unknown 05/06/2021 2:22 PM HATCHERY EMPLOYEE 05/06/2021 5:04 PM HATCHERY EMPLOYEE Narrative [facility] - 05/06/2021 10:30 PM HATCHERY EMPLOYEE <= 0.8 Negative. No detectable VZV IgG antibody. 0.9 - 1.0 Equivocal >=1.1 Positive Antibody testing was performed by multiplex flow immunoassay on the [employer] Mobility platform. us Jania Kyle HYDROELECTRIC PRODUCTION TECHNICIAN, PRESIDENTIAL HELICOPTER CREW CHIEF IMMUNOLOGY ORDERABL ES Final Result Performing Organization Address City/State/RUST Co de Phone Number [facility] [address] [place] [address], * RUBEOLA (MEASLES) IGG (05/06/2021 2:22 PM HATCHERY EMPLOYEE) MEASLES AB IGG 4.1 >=1.1 AI 05/06/2021 10:30 PM HATCHERY EMPLOYEE [facility] Blood No Phlebotomy Charged / Unknown 05/06/2021 2:22 PM HATCHERY EMPLOYEE 05/06/2021 5:04 PM HATCHERY EMPLOYEE Narrative [facility] - 05/06/2021 10:30 PM HATCHERY EMPLOYEE <= 0.8 Negative. No detectable Measles IgG antibody. 0.9 - 1.0 Equivocal >=1.1 Positive Antibody testing was performed by multiplex flow immunoassay on the BioPlex platform. us Jania Shirlene Kyle HYDROELECTRIC PRODUCTION TECHNICIAN, PRESIDENTIAL HELICOPTER CREW CHIEF IMMUNOLOGY ORDERABL ES Final Result Performing Organization Address City/[facility]/ZIP Co de Phone Number [facility] [address] [place] [address], [place] * RUBELLA IMMUNITY IGG (05/06/2021 2:22 PM HATCHERY EMPLOYEE) RUBELLA IMMUNITY Immune Immune, Invalid 05/06/2021 10:30 PM HATCHERY EMPLOYEE [facility] Blood No Phlebotomy Charged / Unknown 05/06/2021 2:22 PM HATCHERY EMPLOYEE 05/06/2021 5:04 PM HATCHERY EMPLOYEE Narrative [facility] - 05/06/2021 10:30 PM HATCHERY EMPLOYEE Antibody testing was performed by multiplex flow immunoassay on the BioPlex platform. us Jania Shirlene Kyle HYDROELECTRIC PRODUCTION TECHNICIAN, PRESIDENTIAL HELICOPTER CREW CHIEF CHEMISTRY ORDERABLE S Final Result Performing Organization Address [facility]/RUST Co de Phone Number [facility] [address] [place] [address], [place] * MUMPS IGG (05/06/2021 2:22 PM HATCHERY EMPLOYEE) Mumps Ab IgG 2.0 >=1.1 AI 05/06/2021 10:30 PM HATCHERY EMPLOYEE [facility] Blood No Phlebotomy Charged / Unknown 05/06/2021 2:22 PM HATCHERY EMPLOYEE 05/06/2021 5:04 PM HATCHERY EMPLOYEE Narrative [facility] - 05/06/2021 10:30 PM HATCHERY EMPLOYEE <= 0.8 Negative. No detectable Mumps IgG antibody. 0.9 - 1.0 Equivocal >=1.1 Positive Antibody testing was performed by multiplex flow immunoassay on the BioPlex platform. us Jania Shirlene Behrends HYDROELECTRIC PRODUCTION TECHNICIAN, PRESIDENTIAL HELICOPTER CREW CHIEF IMMUNOLOGY ORDERABL ES Final Result Performing Organization Address City/[facility]/ZIP Co de Phone Number [facility] [address] [place] [address], * QUANTIFERON-TB GOLD PLUS (05/06/2021 2:22 PM HATCHERY EMPLOYEE) NIL CONTROL 0.04 <8.01 IU/mL 05/08/2021 12:54 PM HATCHERY EMPLOYEE [facility] TB ANTIGEN 1 0.04 <0.35 IU/mL 05/08/2021 12:54 PM HATCHERY EMPLOYEE [facility] TB ANTIGEN 2 0.01 <0.35 IU/mL 05/08/2021 12:54 PM HATCHERY EMPLOYEE [facility] MITOGEN CONTROL >10.00 >0.49 IU/mL 05/08/19 12:54 PM HATCHERY EMPLOYEE [facility] INTEPRETATION TB NEGATIVE NEGATIVE, NEGATIVE (TB antigen response less than 25% of internal negative control value) 05/08/2021 12:54 PM HATCHERY EMPLOYEE [facility] Comment:No immune response t o Mycobacterium tuberculosis antigens was noted. M. tuberculosis infection unlikely. Blood No Phlebotomy Charged / Unknown 05/06/2021 2:22 PM HATCHERY EMPLOYEE 05/07/2021 6:17 AM HATCHERY EMPLOYEE Narrative [facility] - 05/08/2021 12:54 PM HATCHERY EMPLOYEE A POSITIVE QUANTIFERON-TB GOLD PLUS RESULT SHOULD [...] years 3. women us Jania Kyle APRN, PRESIDENTIAL HELICOPTER CREW CHIEF IMMUNOLOGY ORDERABL ES Final Result Performing Organization Address [facility]/RUST Co de Phone Number [facility] [address] [place] [address], [place] * HEPATITIS B SURFACE ANTIBODY (HBSAB) (05/06/2021 2:22 PM HATCHERY EMPLOYEE) HEPATITIS B SURFACE ANTIBODY <8.00 mIU/mL [facility] [id number] B 05/06/2021 10:24 PM HATCHERY EMPLOYEE [facility] Comment:Individual is consid ered not immune to HBV infection. Blood No Phlebotomy Charged / Unknown 05/06/2021 2:22 PM HATCHERY EMPLOYEE 05/06/2021 5:02 PM HATCHERY EMPLOYEE us Jania Kyle HYDROELECTRIC PRODUCTION TECHNICIAN, PRESIDENTIAL HELICOPTER CREW CHIEF CHEMISTRY ORDERABLE S Final Result Performing Organization Address [facility]/RUST Co de Phone Number [facility] [address] [place] [place] [address], [place] documented in this encounter Visit Diagnoses Diagnosis Encounter for pre-employment examination Health examination of defined subpopulation documented in this encounter Care Teams Wet Process Miller Relationship Specialty Start Date End Date Provider, None CHON PCP - General 05/06/21 documented as of this encounter
--- OUTSIDE RECORDS SUMMARY | 2024-11-27 09:29 | XMS_ITS | Clinical Summary ---
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
--- OUTSIDE RECORDS SUMMARY | 2024-11-27 09:29 | XMS_ITS | Clinical Summary ---
Author Organization [facility] Address [address] [place] [address] Care Team Providers Care Filer Repairer Name Role Phone None, Physician Primary Care Provider Unavailabl e Source Comments [facility],non-owned Affiliates and Associated Physician Practices is amultiple site organization consisting of ambulatory clinics and [place]in [place] and [place]. This disclosure is being madepursuant to the Care Everywhere program and may not contain all information available regarding this patient. Last updated 18.[facility] Allergies No known active allergies Medications * Be aware that medications may not be up to date on this document. Alwaysverify current medications with the patient. No known medications Encounters Date Type Department Care Team Description 11/17/2024 Travel 08/30/2024 3:38 PM CDT - 08/30/2024 4:53 PM CDT Emergency ER at [address] [address] Food contamination Discharge Disposition: Home or Self [...] on file Legal Sex Female 6:08 AM COMPLIANCE ADMINISTRATOR Gender Identity Not on file Sexual Orientation [...] st Contact Info) Description 02/22/2025 3:20 PM COMPLIANCE ADMINISTRATOR Office Visit [facility] - Dermatology [address] [place] [address], [place] [address] Leah Robledo MD [address] [place] [address] [address] [place] [id number] Health Maintenance Due Date Last Done Comments [...] patient's age to complete this topic Insurance [facility] [employer] Care Teams Filer Repairer Relationship Specialty Start Date End Date None, Physician PCP - General 08/30/24
--- NOTE | 2024-11-27 10:23 | PC.NURSE ---
EDP Dr. Shelley gave verbal order for 1L of NS
[2024-11-27 10:25] LABS: Hematocrit 33.8 % (37.0-47.0); Hemoglobin 10.9 g/dL (12.0-15.0); Immature Granulocyte Percent A 0.4 % (0-0.5); Lymphocytes Absolute Auto 0.91 K/mm3 (0.9-3.2); Mean Corpuscular HGB Conc 32.2 g/dl (32-36); Mean Corpuscular Hemoglobin 27.1 pg (26-34); Mean Corpuscular Volume 84.1 fl (80-100); Nucleated Red Blood Cells Absolute Auto 0.000 K/mm3 (0.0-0.012); Nucleated Red Blood Cells Perc 0.0 % (0.0-0.2); Platelet Count Result 223 k/mm3 (150-375); Red Blood Count 4.02 M/mm3 (4.2-5.4); White Blood Count 5.3 K/mm3 (4.5-10.0)
[2024-11-27] MEDS: SODIUM CHLORIDE 0.9% IV 1,000 ML 999 ML (10:33)
[2024-11-27 10:41] LABS: Add Urine Microscopic? YES; Appearance Urine Clear (Clear); Glucose Urine UA Negative (Negative); Leukocyte Esterase Ur Trace LEU/UL (Negative); Nitrate Urine Negative (Negative); Specific Grav Ur 1.013 (1.001-1.035)
[2024-11-27 10:42] LABS: Alanine Aminotransferase 12 U/L (6-35); Albumin Level 3.6 g/dL (3.5-5.1); Alkaline Phosphatase 47 U/L (38-126); Anion Gap 4 mmol/L (4-12); Aspartate Amino Transferase 29 U/L (14-36); Bilirubin,Total < 0.1 mg/dL (0.2-1.3); Blood Urea Nitrogen 5 mg/dL (7-17); Calcium 8.5 mg/dL (8.4-10.2); Carbon Dioxide 24 mmol/L (22-30); Chloride 105 mmol/L (98-107); Estimated CRCL calculation 147 ml/min; Estimated Glomerular Filt Rate > 60; Glucose 79 mg/dL (65-110); Potassium 3.7 mmol/L (3.4-5.0); Sodium 133 mmol/L (137-145); Total Protein 6.5 g/dL (6.3-8.2)
[2024-11-27 10:44] LABS: Schistocytes None Seen
[2024-11-27 11:02] LABS: Influenza A QL RT-PCR Negative (Negative); Influenza B QL RT-PCR Negative (Negative); RSV RNA, RT-PCR Negative (Negative); SARS-CoV-2 RNA PCR Positive (Negative)
== END 2024-11-27 11:35 | disposition home or self-care (01) ==
PROVIDERS: Emergency Provider Emergency Medicine
DX: O98.512 Other viral diseases complicating pregnancy, second trimester (principal); U07.1 COVID-19; Z3A.17 17 weeks gestation of pregnancy
CPT/HCPCS: 36415; 80053; 81001; 85025; 87637; 99283; J7030